=== PATIENT | male | born 1960 | race African-American/Black ===

== ENCOUNTER 2024-10-03 02:46 | Inpatient (IN) | payer MEDICARE, SELFPAY ==
[2024-10-03] VITALS (38 sets, daily range): BP systolic 130–172; BP diastolic 72–113; PULSE 100–119; RESP 16–32; TEMP 36.2–36.9; O2SAT 95–100; BMI 30.9
--- NOTE | ~2024-10-03 | CT_ITS ---
Clinical Indication: Pulmonary embolus CT Scan of the Chest with Contrast: Technique: Contiguous sections were acquired throughout the chest after intravenous administration of 100 cc of Omnipaque 350. Dose reduction technique was used on this scan by utilizing automated expos ure control and iterative reconstruction technique. The dose-length product (DLP) was 487.20 mGy-cm. Findings: There is no evidence of any significant mediastinal, hilar or axillary lymphadenopathy. There is no f illing defect in the pulmonary arterial tree to suggest pulmonary embolus. There is no evidence of ao rtic dissection or aneurysm. Small pericardial effusion present. There is no evidence of pleural or pericardial effusion. 2 mm right upper lobe pulmonary nodule present (axial image 31). 3 mm fissural nodule noted left lung (axial image 73). Images through the upper abdomen reveal no abnormalities. Impression: No evidence of pulmonary embolus, aortic dissection, or aortic aneurysm. Small pericardial effusion. Subcentimeter pulmonary nodules, as above, likely benign. For a high-risk patient, consider 12 month follow-up CT. For a low-risk patient, no further follow-up required. Reviewed, dictated and finalized at location . RIAL ATTENDANT Impression: No evidence of pulmonary embolus, aortic dissection, or aortic aneurysm. Small pericardial effusion. Subcentimeter pulmonary nodules, as above, likely benign. For a high-risk patie nt, consider 12 month follow-up CT. For a low-risk patient, no further follow-u p required.
--- NOTE | ~2024-10-03 | XR_ITS ---
Portable chest x-ray Comparison: None Clinical History: Hypoxia Findings: Lungs are clear, without focal consolidation or pleural effusion. Cardiomediastinal silho uette is unremarkable. Cervical spine fixation hardware noted. Impression: Clear lungs. Reviewed, dictated and finalized at location . RAL MEDICAL PRACTITIONER Impression: Clear lungs.
--- NOTE | 2024-10-03 02:46 | ECG_ITS ---
Test Date: 2024-10-03 07:43:19 Measurements Intervals [place] Rate: 104 P: 78 UT: 148 QRS: 75 QRSD: 87 T: 78 QT: 277 QTc: 365 Interpretive Statements SINUS TACHYCARDIA WITH OCCASIONAL SUPRAVENTRICULAR PREMATURE COMPLEXES Compared to ECG 10/03/2024 02:51:17 NO SIGNIFICANT CHANGES Electronically Signed On 10-03-2024 14:27:32 [employer] by Ginger Perea M.D.
--- NOTE | 2024-10-03 02:53 | ECG_ITS ---
Test Date: 2024-10-03 02:51:17 Measurements Intervals [place] Rate: 98 P: 77 IA: 148 QRS: 79 QRSD: 85 T: 87 QT: 332 QTc: 424 Interpretive Statements SINUS RHYTHM No previous ECG available for comparison Electronically Signed On 10-03-2024 14:25:16 TRANSFORMER REPAIRER by Ginger Perea M.D.
[2024-10-03 03:03] LABS: Basophils Percent Auto 0.5 % (0.2-1.2); Eosinophils Absolute Auto 1.2 K/mm3 (0-0.3); Eosinophils Percent Auto 15.7 % (0-4.4); Hematocrit 38.2 % (42.0-52.0); Hemoglobin 13.1 g/dL (14.0-18.0); Immature Granulocyte Absolute 0.03 K/mm3 (0.00-0.031); Immature Granulocyte Percent A 0.4 % (0-0.5); Lymphocytes Absolute Auto 2.26 K/mm3 (0.9-3.2); Lymphocytes Percent Auto 29.4 % (18.3-44.2); Mean Corpuscular HGB Conc 34.3 g/dl (32-36); Mean Corpuscular Volume 99.2 fl (80-100); Mean Platelet Volume 9.2 fl (7.4-10.4); Monocytes Absolute Auto 0.6 K/mm3 (0.1-0.6); Monocytes Percent Auto 7.4 % (2.6-8.5); Neutrophils Absolute Auto 3.6 K/mm3 (1.3-6.7); Neutrophils Percent Auto 46.6 % (45.5-73.1); Platelet Count Result 244 k/mm3 (150-375); Red Blood Count 3.85 M/mm3 (4.6-6.20); Red Cell Distribution Width 13.8 % (11.5-14.5); White Blood Count 7.7 K/mm3 (4.5-10.0)
[2024-10-03 03:14] LABS: Alveolar/Arterial O2 Gradient 30.7 mmHg; Base Excess ABG -0.3 mEq/l (+/-2.0); Device NON-INVASIVE VENT; Fractional Inspired Oxygen 30 %; HCO3 ABG 24.3 mEq/l (22.0-26.0); Modified Allen's Test Pass; Non-Invasive Expiratory Pressure 7 CMH2O; Non-Invasive Inspiratory Pressure 16 CMH2O; Non-Invasive Vent Rate 14 /MIN; Oxygen Content ABG 19.1 %vol (16.0-22.0); Oxygen Saturation ABG 98.7 % (95.0-100.0); Oxyhemoglobin 98.3 % THb (90.0-100.0); PCO2 ABG 39.7 mmHg (35.0-45.0); PO2 ABG 136.6 mmHg (80.0-100.0); PO2 FiO2 Ratio Arterial Blood 4.55 %; Site Drawn RIGHT RADIAL; Total Hemoglobin 13.7 g/dL (12.0-18.0); pH ABG 7.405 (7.350-7.450)
[2024-10-03 03:23] LABS: Alanine Aminotransferase 25 U/L (6-50); Albumin Level 3.6 g/dL (3.5-5.1); Alkaline Phosphatase 127 U/L (38-126); Anion Gap 7 mmol/L (4-12); Aspartate Amino Transferase 27 U/L (17-59); Bilirubin,Total 0.4 mg/dL (0.2-1.3); Blood Urea Nitrogen 12 mg/dL (9-20); Calcium 8.5 mg/dL (8.4-10.2); Carbon Dioxide 28 mmol/L (22-30); Chloride 102 mmol/L (98-107); Estimated CRCL calculation 65 ml/min; Estimated Glomerular Filt Rate > 60; Glucose 115 mg/dL (65-110); Potassium 3.5 mmol/L (3.4-5.0); Sodium 137 mmol/L (137-145)
[2024-10-03] MEDS: NITROGLYCERIN/D5W 200 MCG/ML 50 MG/250 ML BTL IV CONT (03:30)
[2024-10-03 03:39] LABS: Influenza A QL RT-PCR Negative (Negative); Influenza B QL RT-PCR Negative (Negative); RSV RNA, RT-PCR Negative (Negative); SARS-CoV-2 RNA PCR Negative (Negative)
[2024-10-03 04:00] LABS: Lactic Acid Reflex 1.6 mmol/L (0.7-2.0)
[2024-10-03 04:07] LABS: Prothrombin Time 13.9 Seconds (11.1-14.7)
[2024-10-03 04:13] LABS: NT Pro B Type Natriuretic Pept 61 pg/mL (19.9-100); Troponin I 0.022 ng/mL (0.000-0.034)
[2024-10-03] MEDS: IPRATROPIUM 0.5 MG/ALBUTEROL SULFATE 2.5 MG AMPUL.NEB 3 ML 12 ML INHALATION (05:43)
[2024-10-03 07:44] LABS: NT Pro B Type Natriuretic Pept 60 pg/mL (19.9-100); Troponin I 0.017 ng/mL (0.000-0.034)
--- NOTE | 2024-10-03 08:04 | ED.GENADULT ---
HPI - General Adult General Chief complaint: Shortness of Breath/Dyspnea Stated complaint: SOB, CPAP'd BY EMS History of Present Illness HPI narrative: This is a 64-year-old male with history of asthma presenting with shortness of breath. Patient has 1-2 word dyspnea cannot provide any meaningful history. He called a friend who then called EMS to have some and check on him. When they arrived they found him to be in severe respiratory distress. The noted wet lung sounds immediately placed him on CPAP. He was then brought to the hospital for evaluation. Related Data Allergies Allergy/AdvReac Type Severity Reaction Status Date / Time No Known Allergies Allergy Verified 10/03/24 02:52 [facility], [facility] Past Medical History Medical History Asthma Exam Narrative: APPEARANCE: Shady respiratory distress, tripoding, 1-2 word dyspnea Head: atraumatic. EYES: EOMI, NOSE: Atraumatic NECK: Trachea midline RESPIRATORY: Tachypneic, coarse lung sounds in all [place] hypoxic on room air CARDIOVASCULAR: Tachycardic no peripheral edema ABDOMINAL: Non-distended soft nontender MUSCULOSKELETAl: No obvious deformities NEURO: Alert. Moving 4/4 extremities SKIN:: Warm, dry. Normal color PSYCHIATRIC: Normal affect Course Vital Signs Vital signs: Vital Signs Pulse Rate 100 10/03/24 02:44 Respiratory Rate 32 H 10/03/24 02:44 Blood Pressure 159/103 H 10/03/24 02:44 Pulse Oximetry 100 10/03/24 02:44 Oxygen Delivery BiPAP 10/03/24 02:44 Pulse Rate 107 H 10/03/24 07:40 Respiratory Rate 20 10/03/24 07:40 Blood Pressure 149/100 H 10/03/24 07:15 Pulse Oximetry 98 10/03/24 07:40 Oxygen Delivery BiPAP 10/03/24 07:40 Medical Decision Making [facility] Narrative Medical decision making narrative: -Course: 64-year-old male presenting in acute respiratory distress. Initially I thought the patient was in acute pulmonary edema however he did not respond to nitroglycerin or BiPAP. He was then treated with DuoNebs, steroids and magnesium with significant improvement. Appears the patient has had URI symptoms for the last several days which likely exacerbated his asthma/COPD. Patient's workup was unremarkable with normal laboratory values, negative CT PE, negative viral swabs. Patient will be admitted to the hospital for further management of his COPD exacerbation. -DDX includes but is not limited to: Flash pulmonary edema, COPD, pneumonia, asthma -Co-morbidities complicating care: Asthma -Independent interpretation of studies: Labs and imaging reviewed -Discussion of Management/Consultants:Timi -Shared decision making / Disposition:admitted. Vital Signs Vital Signs: Vital Signs Pulse Rate 100 10/03/24 02:44 Respiratory Rate 32 H 10/03/24 02:44 Blood Pressure 159/103 H 10/03/24 02:44 Pulse Oximetry 100 10/03/24 02:44 Oxygen Delivery BiPAP 10/03/24 02:44 Pulse Rate 107 H 10/03/24 07:40 Respiratory Rate 20 10/03/24 07:40 Blood Pressure 149/100 H 10/03/24 07:15 Pulse Oximetry 98 10/03/24 07:40 Oxygen Delivery BiPAP 10/03/24 07:40 Lab Data 10/03/24 02:58 10/03/24 02:58 Labs: Lab Results 10/03/24 10/03/24 10/03/24 Range/Units 02:58 03:12 03:40 WBC 7.7 (4.5-10.0) K/mm3 RBC 3.85 L (4.6-6.20) M/mm3 Hgb 13.1 L (14.0-18.0) g/dL Hct 38.2 L (42.0-52.0) % MCV 99.2 (80-100) fl MCH 34.0 (26-34) pg MCHC 34.3 (32-36) g/dl RDW 13.8 (11.5-14.5) % Plt Count 244 (150-375) k/mm3 MPV 9.2 (7.4-10.4) fl Immature Gran % (Auto) 0.4 (0-0.5) % Neut % (Auto) 46.6 (45.5-73.1) % Lymph % (Auto) 29.4 (18.3-44.2) % Cook % (Auto) 7.4 (2.6-8.5) % Eos % (Auto) 15.7 H (0-4.4) % Baso % (Auto) 0.5 (0.2-1.2) % Lymph # (Auto) 2.26 (0.9-3.2) K/mm3 Cook # (Auto) 0.6 (0.1-0.6) K/mm3 Eos # (Auto) 1.2 H (0-0.3) K/mm3 Baso # (Auto) 0.0 (0.0-0.1) K/mm3 Abs Immat Gran (auto) 0.03 (0.00-0.031) K/mm3 Absolute Neuts (auto) 3.6 (1.3-6.7) K/mm3 Absolute Nucleated RBC 0.000 (0.0-0.012) K/mm3 Nucleated RBC % 0.0 (0.0-0.2) % PT 13.9 (11.1-14.7) Seconds INR 1.0 APTT 29.0 (22.3-36.8) Seconds Expiratory Pressure 7 CMH2O Inspiratory Pressure 16 CMH2O Sodium 137 (137-145) mmol/L Potassium 3.5 (3.4-5.0) mmol/L Chloride 102 (98-107) mmol/L Carbon Dioxide 28 (22-30) mmol/L Anion Gap 7 (4-12) mmol/L BUN 12 (9-20) mg/dL Creatinine 1.09 (0.7-1.3) mg/dL Estim Creat Clear Calc 65 ml/min Estimated GFR > 60 (59 - ) Glucose 115 H (65-110) mg/dL Lactic Acid 1.6 (0.7-2.0) mmol/L Calcium 8.5 (8.4-10.2) mg/dL Total Bilirubin 0.4 (0.2-1.3) mg/dL AST 27 (17-59) U/L ALT 25 (6-50) U/L Alkaline Phosphatase 127 H (38-126) U/L Troponin I 0.022 (0.000-0.034) ng/mL NT-Pro-B Natriuret Pep 61 (19.9-100) pg/mL Total Protein 6.0 L (6.3-8.2) g/dL Albumin 3.6 (3.5-5.1) g/dL Urine Opiates Screen Urine Methadone Screen Ur Barbiturates Screen Ur Phencyclidine Scrn Ur Amphetamine Screen U Benzodiazepines Scrn Urine Cocaine Screen U Cannabinoids Screen Influenza A (RT-PCR) Negative (Negative) Influenza B (RT-PCR) Negative (Negative) RSV (RT-PCR) Negative (Negative) SARS-CoV-2 RNA (RT-PCR) Negative (Negative) 10/03/24 10/03/24 Range/Units 07:18 07:38 WBC (4.5-10.0) K/mm3 RBC (4.6-6.20) M/mm3 Hgb (14.0-18.0) g/dL Hct (42.0-52.0) % MCV (80-100) fl MCH (26-34) pg MCHC (32-36) g/dl RDW (11.5-14.5) % Plt Count (150-375) k/mm3 MPV (7.4-10.4) fl Immature Gran % (Auto) (0-0.5) % Neut % (Auto) (45.5-73.1) % Lymph % (Auto) (18.3-44.2) % Cook % (Auto) (2.6-8.5) % Eos % (Auto) (0-4.4) % Baso % (Auto) (0.2-1.2) % Lymph # (Auto) (0.9-3.2) K/mm3 Cook # (Auto) (0.1-0.6) K/mm3 Eos # (Auto) (0-0.3) K/mm3 Baso # (Auto) (0.0-0.1) K/mm3 Abs Immat Gran (auto) (0.00-0.031) K/mm3 Absolute Neuts (auto) (1.3-6.7) K/mm3 Absolute Nucleated RBC (0.0-0.012) K/mm3 Nucleated RBC % (0.0-0.2) % PT (11.1-14.7) Seconds INR APTT (22.3-36.8) Seconds Expiratory Pressure CMH2O Inspiratory Pressure CMH2O Sodium (137-145) mmol/L Potassium (3.4-5.0) mmol/L Chloride (98-107) mmol/L Carbon Dioxide (22-30) mmol/L Anion Gap (4-12) mmol/L BUN (9-20) mg/dL Creatinine (0.7-1.3) mg/dL Estim Creat Clear Calc ml/min Estimated GFR (59 - ) Glucose (65-110) mg/dL Lactic Acid (0.7-2.0) mmol/L Calcium (8.4-10.2) mg/dL Total Bilirubin (0.2-1.3) mg/dL AST (17-59) U/L ALT (6-50) U/L Alkaline Phosphatase (38-126) U/L Troponin I 0.017 D (0.000-0.034) ng/mL NT-Pro-B Natriuret Pep 60 (19.9-100) pg/mL Total Protein (6.3-8.2) g/dL Albumin (3.5-5.1) g/dL Urine Opiates Screen Pending Urine Methadone Screen Pending Ur Barbiturates Screen Pending Ur Phencyclidine Scrn Pending Ur Amphetamine Screen Pending U Benzodiazepines Scrn Pending Urine Cocaine Screen Pending U Cannabinoids Screen Pending Influenza A (RT-PCR) (Negative) Influenza B (RT-PCR) (Negative) RSV (RT-PCR) (Negative) SARS-CoV-2 RNA (RT-PCR) (Negative) ABG Data ABG results: 10/03/24 03:12 Puncture Site Right radial ABG pH 7.405 ABG pCO2 39.7 ABG pO2 136.6 H ABG PO2/FiO2 Ratio 4.55 ABG HCO3 24.3 ABG O2 Saturation 98.7 ABG O2 Content 19.1 ABG Base Excess -0.3 A-a Gradient 30.7 Oxyhemoglobin 98.3 Total Hemoglobin 13.7 O2 Delivery Device Non-invasive vent O2 Liters/Min Not Reportable Vent Rate 14 FiO2 30 Critical Care Time Critical Care Time Critical Care Time: Yes Total Critical Care Time: 35 Discharge Plan Discharge Clinical Impression: COPD with acute exacerbation Patient Disposition: Still a Patient Condition: Stable Patient Language: Italian
[2024-10-03] MEDS: dexAMETHasone SOD PHOS INJ 10 MG/ML 1 ML VIAL IV PUSH (08:57)
[2024-10-03] MEDS: MAGNESIUM SULF 2 GM/WATER 50ML 2 GM/50 ML BAG IVPB (08:58)
--- NOTE | 2024-10-03 09:05 | PC.NURSE ---
attempted to give report nurse not able to take pt at this time
[2024-10-03 09:11] LABS: Barbiturate Screen Urine Negative (Negative)
[2024-10-03 09:15] LABS: Benzodiazepines Screen Urine Negative (Negative)
--- NOTE | 2024-10-03 09:19 | PC.NURSE ---
This patient, Yovanny Steve, was admitted to IMU Room 205-01. Patient/family oriented to hospital policies and general routines including ID bracelet, bed and alarms, visiting hours, pain management, procedures, bathroom and other care routines, personal items, smoking policy, room service/diet, and visiting hours. Information on how to activate the Rapid Response Team has been discussed. Patient/Family are encouraged to report perceived risks to care and to ask questions if they do not understand what they are told or what they should do.
[2024-10-03 09:23] LABS: Amphetamine Screen Urine Negative (Negative); Cannabinoid Screen Urine Negative (Negative); Cocaine Screen Urine Negative (Negative); Methadone Screen Urine Negative (Negative); Opiate Screen Urine Negative (Negative); Phencyclidine Screen Urine Negative (Negative)
--- NOTE | 2024-10-03 10:35 | P.HP_ITS ---
H&P: HPI History of Present Illness Date/Time: 10/03/24 10:35 Chief Complaint: Productive cough and shortness breath Narrative: 64 years old man with history of asthma, never smoking, presenting with shortness of breath. Present ED with a chief complaint of productive cough and shortness shortness breath. Patient has been having intermittent cough and shortness breast more than a week. Patient visited Urgent Care, patient was prescribed antibiotics bronchodilators and steroid. But patient still has cough with scant phlegm. Patient has been having worsening cough and increased phlegm in past few more days. Dyspnea is getting worse today, therefore his friend called EMS. Upon arrival, EMS found patient was in respiratory distress, and patient was placed on CPAP and brought to ED for evaluation. Patient denies chest pain, headache, focal weakness, abdomen pain nausea vomiting diarrhea dysuria. Upon arrival in the ED, patient was afebrile, tachypnea 32, tachycardia 100, blood pressure stable, patient was found have hypoxemia, respiratory distress. Patient was placed on BiPAP in the ED. CBC showed mild anemia hemoglobin 13.1, ABG showed hypoxemic respiratory failure without CO2 retention. Flu and COVID negative, CTA chest shows no PE, patient received bronchodilators and steroid, patient still has severe dyspnea. We admit patient for further evaluation and management Review of Systems Review of Systems: ROS negative except above PMFSH Past Medical History Medical History Asthma Meds Home Medications and Allergies Allergies Allergy/AdvReac Type Severity Reaction Status Date / Time No Known Allergies Allergy Verified 10/03/24 02:52 Vital Signs Vital Signs - 24 hr 10/03/24 02:44 10/03/24 02:44 10/03/24 02:48 Temperature Pulse Rate 100 Respiratory Rate 32 H 26 H Blood Pressure 159/103 H Pulse Oximetry 100 100 100 Oxygen Delivery BiPAP BiPAP BiPAP Fraction of Inspired Oxygen 10/03/24 02:51 10/03/24 03:30 10/03/24 04:00 Temperature Pulse Rate 100 103 H 104 H Respiratory Rate 23 H Blood Pressure 156/100 H 163/100 H Pulse Oximetry 97 Oxygen Delivery Fraction of Inspired Oxygen 10/03/24 04:48 10/03/24 05:27 10/03/24 05:46 Temperature Pulse Rate 109 H 119 H 115 H Respiratory Rate 22 H 25 H 17 Blood Pressure 158/113 H Pulse Oximetry 97 96 Oxygen Delivery BiPAP Fraction of Inspired Oxygen 10/03/24 05:49 10/03/24 06:00 10/03/24 06:00 Temperature Pulse Rate 115 H 103 H 109 H Respiratory Rate 23 H 21 H 19 Blood Pressure 153/99 H 130/93 H Pulse Oximetry 96 100 100 Oxygen Delivery BiPAP Fraction of Inspired Oxygen 10/03/24 07:00 10/03/24 07:10 10/03/24 07:15 Temperature 97.9 F Pulse Rate 106 H 107 H 104 H Respiratory Rate 20 20 22 H Blood Pressure 145/88 H 149/100 H Pulse Oximetry 100 100 Oxygen Delivery Fraction of Inspired Oxygen 10/03/24 07:40 10/03/24 08:00 10/03/24 08:55 Temperature 97.7 F Pulse Rate 107 H 108 H 102 H Respiratory Rate 20 20 Blood Pressure 152/83 H 154/88 H Pulse Oximetry 98 100 Oxygen Delivery BiPAP Fraction of Inspired Oxygen 10/03/24 09:03 10/03/24 09:17 10/03/24 09:20 Temperature 97.9 F 97.9 F Pulse Rate 106 H 102 H 111 H Respiratory Rate 20 20 24 H Blood Pressure 152/88 H 150/72 H 172/100 H Pulse Oximetry 100 100 98 Oxygen Delivery Fraction of Inspired Oxygen 10/03/24 09:40 10/03/24 09:40 Temperature Pulse Rate 114 H Respiratory Rate 25 H Blood Pressure Pulse Oximetry 96 96 Oxygen Delivery BiPAP BiPAP Fraction of Inspired Oxygen 21 Exam Narrative: GENERAL: In respiratory distress. Well-nourished. - EYES: EOMI. Anicteric. - HENT: Moist mucous membranes. - LUNGS: Wheezing bilateral, distant br eath sound bilateral, tachypnea - CARDIOVASCULAR: Regular rate and rhyth m. No murmur. No JVD. Tachycardia - ABDOMEN: Soft, non-tender and non-dist ended. No palpable masses. - EXTREMITIES: No edema. Peripheral puls es 2+. Non-tender. - NEUROLOGIC: No focal neurological defi cits. CN II-XII grossly intact. - PSYCHIATRIC: Awake, Alert and oriented x 3. Appropriate mood and affect. - SKIN: No rashes or lesions. Warm. - LYMPH: No cervical lymphadenopathy. H&P: Results Labs Labs: Short CBC 10/03/24 Range/Units 02:58 WBC 7.7 (4.5-10.0) K/mm3 Hgb 13.1 L (14.0-18.0) g/dL Hct 38.2 L (42.0-52.0) % Plt Count 244 (150-375) k/mm3 BMP 10/03/24 02:58 Sodium 137 Potassium 3.5 Chloride 102 Carbon Dioxide 28 BUN 12 Creatinine 1.09 Glucose 115 H Calcium 8.5 Cardiac Enzymes 10/03/24 10/03/24 Range/Units 02:58 07:18 Troponin I 0.022 0.017 D (0.000-0.034) ng/mL Liver Function 10/03/24 Range/Units 02:58 Total Bilirubin 0.4 (0.2-1.3) mg/dL AST 27 (17-59) U/L ALT 25 (6-50) U/L Alkaline Phosphatase 127 H (38-126) U/L Albumin 3.6 (3.5-5.1) g/dL Assessment and Plan Assessment and plan (1) COPD with acute exacerbation: Code(s): J44.1 - Chronic obstructive pulmonary disease with (acute) exacerbation Status: Acute (2) Acute respiratory failure with hypoxemia: Code(s): J96.01 - Acute respiratory failure with hypoxia Status: Acute (3) Acute bacterial bronchitis: Code(s): J20.8 - Acute bronchitis due to other specified organisms; B96.89 - Other specified bacterial agents as the cause of diseases classified elsewhere Status: Acute Plan COPD exacerbation, acute bacterial bronchitis Patient history of COPD, aspartate cough and worsening shortness breast in past 1 day CTA shows no PE, Received bronchodilator in the ED, start DuoNeb scheduled q.6 hours, albuterol nebulizer q.4 hours p.r.n. Start Levaquin 750 mg IV daily Continue methylprednisolone 60 mg q.6 hours IV Acute respiratory failure with hypoxemia Possible due to COPD exacerbation Patient is on BiPAP, Follow ABG. Continue O2 therapy to keep pulse ox above 92 Elevated blood pressure Possible undiagnosed hypertension Blood pressure 172/100 in the ED Start losartan 50 mg daily p.o. amlodipine 5 mg daily p.o. Follow-up echocardiogram, and BNP Hospitalist MIPS Advance Care Plan I have confirmed that the patient's Advanced Care Plan is present, code status is documented, or surrogate decision maker is listed in patient medical record.: Yes Medication Reconciliation I have utilized all available resources to obtain, update and review the patients current medications (includes all prescriptions, OTC, herbals, cannabis, and nutritional supplements).: Yes
[2024-10-03] MEDS: methylPREDNISolone SOD SUCC 125 MG VIAL 60 MG IV PUSH ×3 (12:35→23:42)
[2024-10-03] MEDS: amLODIPine BESYLATE 5 MG TABLET PO (12:35)
[2024-10-03] MEDS: LOSARTAN POTASSIUM 50 MG TABLET PO (12:35)
[2024-10-03] MEDS: levoFLOXacin 750 MG/D5W 150 ML 750 MG/150 ML BAG 100 MG IVPB (12:35)
[2024-10-03] MEDS: IPRATROPIUM 0.5 MG/ALBUTEROL SULFATE 2.5 MG AMPUL.NEB 3 ML INHALATION ×2 (13:10→20:40)
[2024-10-04] VITALS (15 sets, daily range): BP systolic 105–137; BP diastolic 68–81; PULSE 99–116; RESP 16–24; TEMP 36.5–37.1; O2SAT 94–99
[2024-10-04] MEDS: methylPREDNISolone SOD SUCC 125 MG VIAL 60 MG IV PUSH (05:39)
--- NOTE | 2024-10-04 05:41 | PCRCNOTE ---
This RT woke patient for his 0200 updraft treatment in which he apologized and stated he would rather sleep. Treatment to resume @ 0800.
[2024-10-04] MEDS: IPRATROPIUM 0.5 MG/ALBUTEROL SULFATE 2.5 MG AMPUL.NEB 3 ML INHALATION ×3 (08:02→21:35)
[2024-10-04] MEDS: LOSARTAN POTASSIUM 50 MG TABLET PO (08:45)
[2024-10-04] MEDS: amLODIPine BESYLATE 5 MG TABLET PO (08:45)
--- NOTE | 2024-10-04 09:25 | P.PNIM_ITS ---
Progress Note: A&P Assessment and Plan (1) COPD with acute exacerbation: Code(s): J44.1 - Chronic obstructive pulmonary disease with (acute) exacerbation Status: Acute (2) Acute respiratory failure with hypoxemia: Code(s): J96.01 - Acute respiratory failure with hypoxia Status: Acute (3) Acute bacterial bronchitis: Code(s): J20.8 - Acute bronchitis due to other specified organisms; B96.89 - Other specified bacterial agents as the cause of diseases classified elsewhere Status: Acute Plan COPD exacerbation, acute bacterial bronchitis Patient history of COPD, aspartate cough and worsening shortness breast in past 1 day CTA shows no PE, Received bronchodilator in the ED, start DuoNeb scheduled q.6 hours, albuterol nebulizer q.4 hours p.r.n. Start Levaquin 750 mg IV daily Decrease methylprednisolone 60 mg q.6 hours IV to 40 mg q.8 hours IV Acute respiratory failure with hypoxemia Possible due to COPD exacerbation Patient is off BiPAP, today Follow venous blood gas showed patient 7.46, pCO2 29, PO2 68.5, bicarbonate 20.2 Continue O2 therapy to keep pulse ox above 92 1 nasal cannular Elevated blood pressure Possible undiagnosed hypertension Blood pressure 172/100 in the ED BNP: 61 Start amlodipine 5 mg daily p.o., losartan 50 mg daily p.o. Blood pressure is controlled well Move patient to medical floor from step-down ICU Subjective Date/time seen: 10/04/24 09:25 Interval history: I saw examined patient today. Patient is off BiPAP. Patient feels dyspnea improving, but still has significant dyspnea with minimal exertion. Patient denies headache, chest pain, nausea vomiting diarrhea dysuria. Patient has tachycardia tachypnea, pulse ox 91 on room air, Exam Narrative: GENERAL: In respiratory distress. Well-nourished., obesity - EYES: EOMI. Anicteric. - HENT: Moist mucous membranes. - LUNGS: Scattered Wheezing bilateral, distant breath sound bilateral. - CARDIOVASCULAR: Regular rate and rhyth m. No murmur. No JVD. Tachycardia - ABDOMEN: Soft, non-tender and non-dist ended. No palpable masses. - EXTREMITIES: No edema. Peripheral puls es 2+. Non-tender. - NEUROLOGIC: No focal neurological defi cits. CN II-XII grossly intact. - PSYCHIATRIC: Awake, Alert and oriented x 3. Appropriate mood and affect. - SKIN: No rashes or lesions. Warm. - LYMPH: No cervical lymphadenopathy. Objective Data Vital Signs Vital Signs: Vital Signs - 24 hr 10/03/24 09:40 10/03/24 09:40 10/03/24 10:00 Temperature Pulse Rate 114 H Respiratory Rate 25 H Blood Pressure Pulse Oximetry 96 96 95 Oxygen Delivery BiPAP BiPAP BiPAP Oxygen Flow Rate Fraction of Inspired Oxygen 21 25 10/03/24 10:00 10/03/24 11:00 10/03/24 12:00 Temperature 97.2 F L Pulse Rate 106 H 107 H 103 H Respiratory Rate 27 H 30 H Blood Pressure 169/94 H Pulse Oximetry 97 99 Oxygen Delivery BiPAP Oxygen Flow Rate Fraction of Inspired Oxygen 10/03/24 12:00 10/03/24 12:30 10/03/24 12:45 Temperature Pulse Rate 113 H 103 H Respiratory Rate Blood Pressure Pulse Oximetry 95 97 Oxygen Delivery Nasal Cannula Oxygen Flow Rate 2 Fraction of Inspired Oxygen 10/03/24 13:10 10/03/24 13:20 10/03/24 14:00 Temperature Pulse Rate 104 H 105 H 101 H Respiratory Rate 24 H 24 H Blood Pressure Pulse Oximetry Oxygen Delivery Oxygen Flow Rate Fraction of Inspired Oxygen 10/03/24 15:20 10/03/24 16:00 10/03/24 16:00 Temperature 98.5 F Pulse Rate 110 H 118 H Respiratory Rate 16 Blood Pressure 151/79 H Pulse Oximetry 100 95 Oxygen Delivery Nasal Cannula Oxygen Flow Rate 2 Fraction of Inspired Oxygen 10/03/24 18:00 10/03/24 19:40 10/03/24 20:00 Temperature 98.1 F Pulse Rate 112 H 100 103 H Respiratory Rate 20 20 Blood Pressure 141/79 H Pulse Oximetry 99 97 Oxygen Delivery Room Air Oxygen Flow Rate Fraction of Inspired Oxygen 10/03/24 20:00 10/03/24 20:40 10/03/24 20:40 Temperature Pulse Rate 103 H 111 H 111 H Respiratory Rate 20 Blood Pressure Pulse Oximetry 97 Oxygen Delivery Nasal Cannula Oxygen Flow Rate 2 Fraction of Inspired Oxygen 10/03/24 20:48 10/03/24 22:00 10/03/24 23:46 Temperature 98.0 F Pulse Rate 107 H 111 H 108 H Respiratory Rate 20 16 Blood Pressure 133/79 Pulse Oximetry 97 Oxygen Delivery Oxygen Flow Rate Fraction of Inspired Oxygen 10/03/24 23:54 10/03/24 23:54 10/04/24 02:00 Temperature Pulse Rate 113 H 113 H 104 H Respiratory Rate 16 Blood Pressure Pulse Oximetry 97 Oxygen Delivery Room Air Oxygen Flow Rate Fraction of Inspired Oxygen 10/04/24 04:00 10/04/24 04:00 10/04/24 04:07 Temperature 98.0 F Pulse Rate 106 H 106 H 106 H Respiratory Rate 20 20 Blood Pressure 105/81 Pulse Oximetry 94 94 Oxygen Delivery Nasal Cannula Oxygen Flow Rate 2 Fraction of Inspired Oxygen 10/04/24 05:44 10/04/24 08:00 10/04/24 08:03 Temperature 97.7 F Pulse Rate 101 H 111 H 107 H Respiratory Rate 24 H 20 Blood Pressure 133/70 Pulse Oximetry 98 96 Oxygen Delivery Room Air Oxygen Flow Rate Fraction of Inspired Oxygen 10/04/24 08:03 10/04/24 08:12 Temperature Pulse Rate 107 H 102 H Respiratory Rate 20 20 Blood Pressure Pulse Oximetry Oxygen Delivery Oxygen Flow Rate Fraction of Inspired Oxygen Intake/Output Intake/Output: Intake & Output 10/01/24 10/02/24 10/03/24 10/04/24 23:59 23:59 23:59 23:59 Intake Total 748.1 560 Output Total 1125 200 Balance -376.9 360 Meds/Results Medications: Active Medications Generic Name Dose Route Start Last Admin Trade Name Freq PRN Reason Stop Dose Admin Albuterol/Ipratropium 3 ml 10/03/24 14:00 10/04/24 08:02 Ipratropium 0.5 Mg/Albuterol Sulfate 2.5 Mg Ampul.Neb 3 Ml INHALATION 3 ml Q6HRT MAYNOR Administration Amlodipine Besylate 5 mg 10/03/24 12:05 10/04/24 08:45 Amlodipine Besylate 5 Mg Tablet PO 5 mg DAILY MAYNOR Administration Levofloxacin/Dextrose 750 mg in 150 mls @ 100 mls/hr 10/03/24 12:00 10/03/24 14:10 Levaquin 750 Mg/D5w 150 Ml IVPB Infused Q24H MAYNOR Infusion Losartan Potassium 50 mg 10/03/24 12:05 10/04/24 08:45 Losartan Potassium 50 Mg Tablet PO 50 mg DAILY MAYNOR Administration Methylprednisolone Sodium Succinate 60 mg 10/03/24 12:00 10/04/24 05:39 Methylprednisolone Sod Succ 125 Mg Vial IV PUSH 60 mg Q6HR MAYNOR Administration Radiology Results: ITS Impressions Chest X-Ray 10/03/24 06:28 Impression: Clear lungs. Chest CTA 10/03/24 07:42 Impression: No evidence of pulmonary embolus, aortic dissection, or aortic aneurysm. Small pericardial effusion. Subcentimeter pulmonary nodules, as above, likely benign. For a high-risk patient, consider 12 month follow-up CT. For a low-risk patient, no further follow-up required.
[2024-10-04 09:56] LABS: Basophils Percent Auto 0.1 % (0.2-1.2); Hematocrit 38.2 % (42.0-52.0); Hemoglobin 13.1 g/dL (14.0-18.0); Immature Granulocyte Absolute 0.13 K/mm3 (0.00-0.031); Immature Granulocyte Percent A 0.8 % (0-0.5); Lymphocytes Absolute Auto 0.87 K/mm3 (0.9-3.2); Lymphocytes Percent Auto 5.7 % (18.3-44.2); Mean Corpuscular HGB Conc 34.3 g/dl (32-36); Mean Corpuscular Volume 99.2 fl (80-100); Mean Platelet Volume 9.4 fl (7.4-10.4); Monocytes Absolute Auto 0.4 K/mm3 (0.1-0.6); Monocytes Percent Auto 2.7 % (2.6-8.5); Neutrophils Absolute Auto 13.9 K/mm3 (1.3-6.7); Neutrophils Percent Auto 90.7 % (45.5-73.1); Platelet Count Result 274 k/mm3 (150-375); Red Blood Count 3.85 M/mm3 (4.6-6.20); White Blood Count 15.3 K/mm3 (4.5-10.0)
[2024-10-04 10:10] LABS: Anion Gap 9 mmol/L (4-12); Blood Urea Nitrogen 19 mg/dL (9-20); Carbon Dioxide 24 mmol/L (22-30); Chloride 101 mmol/L (98-107); Estimated CRCL calculation 65 ml/min; Estimated Glomerular Filt Rate > 60; Glucose 199 mg/dL (65-110); Potassium 4.3 mmol/L (3.4-5.0); Sodium 134 mmol/L (137-145)
[2024-10-04 12:06] LABS: Fractional Inspired Oxygen 21 %; HCO3 VBG 20.2 mEq/l (24.0-30.0); PO2 VBG 68.5 mmHg (35.0-45.0)
[2024-10-04 12:11] LABS: Device ROOM AIR; PCO2 VBG 29.1 mmHg (42.0-48.0)
[2024-10-04] MEDS: methylPREDNISolone SOD SUCC 40 MG VIAL IV PUSH (14:18)
[2024-10-04] MEDS: levoFLOXacin 750 MG/D5W 150 ML 750 MG/150 ML BAG 100 MG IVPB (14:22)
--- NOTE | 2024-10-04 21:56 | P.CONPL_ITS ---
History of Present Illness History of Present Illness Consult date: 10/05/24 Requesting physician: Mary Capellan MD Chief complaint: COPD Narrative: patient is being discharged Oct 05, I did not see him in consultation. d/w Dr Capellan. 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 [facility] Past Medical History Medical History Asthma Social History Social History Smoking status: Former smoker Alcohol intake: never Substance use: never Do You Feel Safe in your Home?: Yes Lack of Transportation: No Lack of Food: Never True Current Housing: I Have Housing Concerned About Future Housing: No Difficulty Paying Gas/Electric Bills: No Difficulty Paying for Meds: No Currently Unemployed: No Education: Don't Know Difficulty w/ Childcare or Family Care: No Spiritual care concerns: No Meds Home Medications and Allergies Home Medications ?Medication ?Instructions ?Recorded ?Confirmed ?Type albuterol sulfate 90 mcg/actuation 2 puff inhalation Q4H PRN 10/03/24 10/03/24 History aerosol inhaler shortness of breath or wheezing allopurinol 300 mg tablet 300 mg PO DAILY 10/03/24 10/03/24 History cholecalciferol (vitamin D3) 25 25 mcg PO DAILY 10/03/24 10/03/24 History mcg (1,000 unit) capsule (Vitamin D3) esomeprazole magnesium 20 mg 20 mg PO DAILY 10/03/24 10/03/24 History capsule,delayed release (Acid Dethistler Operator (esomeprazole)) fexofenadine 180 mg tablet 180 mg PO DAILY 10/03/24 10/03/24 History (Ameena Allergy) fluticasone 500 mcg-salmeterol 50 1 inh inhalation Q12H 10/03/24 10/03/24 History mcg/dose blistr powdr for inhalation (Wixela Inhub) fluticasone propionate 50 1 spray intranasal DAILY PRN 10/03/24 10/03/24 History mcg/actuation nasal allergy symptoms spray,suspension (24 Hour Allergy Relief) hydroxyzine HCl 10 mg tablet 10 mg PO TID PRN anxiety 10/03/24 10/03/24 History lisinopril 20 1 tablet PO DAILY 10/03/24 10/03/24 History mg-hydrochlorothiazide 25 mg tablet loratadine 10 mg tablet 10 mg PO DAILY 10/03/24 10/03/24 History multivitamin with minerals-folic 1 tablet PO DAILY 10/03/24 10/03/24 History acid 80 mcg chewable tablet (Centrum Adult 50 Plus) potassium 99 mg tablet 99 mg PO DAILY 10/03/24 10/03/24 History sertraline 25 mg tablet 25 mg PO DAILY 10/03/24 10/03/24 History tiotropium bromide 2.5 2 inh inhalation DAILY 10/03/24 10/03/24 History mcg/actuation mist for inhalation (Spiriva Respimat) trazodone 150 mg tablet 150 mg PO HS 10/03/24 10/03/24 History umeclidinium 62.5 mcg/actuation 1 inh inhalation DAILY 10/03/24 10/03/24 History blister powder for inhalation (Incruse Ellipta) vitamin B12 2,500 mcg-folic acid 1 tablet PO DAILY 10/03/24 10/03/24 History 400 mcg disintegrating tablet vitamin E 268 mg (400 unit) capsule 268 mg PO DAILY 10/03/24 10/03/24 History vitamin E 670 mg (1,000 unit) 670 mg PO DAILY 10/03/24 10/03/24 History capsule Allergies Allergy/AdvReac Type Severity Reaction Status Date / Time No Known Allergies Allergy Verified 10/03/24 02:52 Vital Signs Vital Signs - 24 hr 10/03/24 22:00 10/03/24 23:46 10/03/24 23:54 Temperature 36.7 C Pulse Rate 111 H 108 H 113 H Respiratory Rate 16 16 Blood Pressure 133/79 Pulse Oximetry 97 97 Oxygen Delivery Room Air Oxygen Flow Rate Fraction of Inspired Oxygen 10/03/24 23:54 10/04/24 02:00 10/04/24 04:00 Temperature Pulse Rate 113 H 104 H 106 H Respiratory Rate 20 Blood Pressure Pulse Oximetry 94 Oxygen Delivery Nasal Cannula Oxygen Flow Rate 2 Fraction of Inspired Oxygen 10/04/24 04:00 10/04/24 04:07 10/04/24 05:44 Temperature 36.7 C Pulse Rate 106 H 106 H 101 H Respiratory Rate 20 Blood Pressure 105/81 Pulse Oximetry 94 Oxygen Delivery Oxygen Flow Rate Fraction of Inspired Oxygen 10/04/24 08:00 10/04/24 08:00 10/04/24 08:03 Temperature 36.5 C Pulse Rate 111 H 108 H 107 H Respiratory Rate 24 H 20 Blood Pressure 133/70 Pulse Oximetry 98 96 Oxygen Delivery Room Air Oxygen Flow Rate Fraction of Inspired Oxygen 10/04/24 08:03 10/04/24 08:12 10/04/24 10:00 Temperature Pulse Rate 107 H 102 H 115 H Respiratory Rate 20 20 Blood Pressure Pulse Oximetry Oxygen Delivery Oxygen Flow Rate Fraction of Inspired Oxygen 10/04/24 12:00 10/04/24 13:29 10/04/24 13:32 Temperature 37.1 C Pulse Rate 112 H 110 H 110 H Respiratory Rate 20 20 20 Blood Pressure 137/68 Pulse Oximetry 99 96 Oxygen Delivery Room Air Oxygen Flow Rate Fraction of Inspired Oxygen 10/04/24 13:42 10/04/24 15:56 10/04/24 20:00 Temperature 36.8 C Pulse Rate 116 H 110 H Respiratory Rate 20 16 Blood Pressure 135/69 Pulse Oximetry 98 Oxygen Delivery Room Air Oxygen Flow Rate Fraction of Inspired Oxygen 10/04/24 21:35 10/04/24 21:45 Temperature Pulse Rate 102 H 99 Respiratory Rate 20 20 Blood Pressure Pulse Oximetry Oxygen Delivery Oxygen Flow Rate Fraction of Inspired Oxygen Results Laboratory Findings 10/05/24 06:41 10/05/24 06:41 ABG, PT/INR, D-dimer: ABG ABG pH 7.405 (7.350-7.450) 10/03/24 03:12 ABG pCO2 39.7 mmHg (35.0-45.0) 10/03/24 03:12 ABG pO2 136.6 mmHg (80.0-100.0) H 10/03/24 03:12 ABG O2 Saturation 98.7 % (95.0-100.0) 10/03/24 03:12 PT/INR, D-dimer PT 13.9 Seconds (11.1-14.7) 10/03/24 02:58 INR 1.0 10/03/24 02:58 Abnormal lab findings: Abnormal Labs 10/03/24 10/03/24 10/04/24 02:58 03:12 09:39 WBC 15.3 H RBC 3.85 L 3.85 L Hgb 13.1 L 13.1 L Hct 38.2 L 38.2 L Immature Gran % (Auto) 0.8 H Neut % (Auto) 90.7 H Lymph % (Auto) 5.7 L Eos % (Auto) 15.7 H Baso % (Auto) 0.1 L Lymph # (Auto) 0.87 L Eos # (Auto) 1.2 H Abs Immat Gran (auto) 0.13 H Absolute Neuts (auto) 13.9 H ABG pO2 136.6 H VBG pH VBG pCO2 VBG pO2 VBG HCO3 Sodium 134 L Glucose 115 H 199 H Alkaline Phosphatase 127 H Total Protein 6.0 L 10/04/24 11:53 WBC RBC Hgb Hct Immature Gran % (Auto) Neut % (Auto) Lymph % (Auto) Eos % (Auto) Baso % (Auto) Lymph # (Auto) Eos # (Auto) Abs Immat Gran (auto) Absolute Neuts (auto) ABG pO2 VBG pH 7.460 H* VBG pCO2 29.1 L* VBG pO2 68.5 H VBG HCO3 20.2 L Sodium Glucose Alkaline Phosphatase Total Protein
[2024-10-05] VITALS: BP 110/75; PULSE 96; RESP 18; TEMP 36.5; O2SAT 98
[2024-10-05 06:46] VITALS: BP 125/69; PULSE 96; RESP 18; TEMP 36.6; O2SAT 97
[2024-10-05 07:21] LABS: Basophils Percent Auto 0.1 % (0.2-1.2); Eosinophils Percent Auto 0.2 % (0-4.4); Hematocrit 39.2 % (42.0-52.0); Hemoglobin 12.8 g/dL (14.0-18.0); Immature Granulocyte Absolute 0.11 K/mm3 (0.00-0.031); Immature Granulocyte Percent A 0.7 % (0-0.5); Lymphocytes Absolute Auto 1.91 K/mm3 (0.9-3.2); Lymphocytes Percent Auto 12.6 % (18.3-44.2); Mean Corpuscular HGB Conc 32.7 g/dl (32-36); Mean Corpuscular Hemoglobin 33.4 pg (26-34); Mean Corpuscular Volume 102.3 fl (80-100); Mean Platelet Volume 9.6 fl (7.4-10.4); Monocytes Absolute Auto 1.1 K/mm3 (0.1-0.6); Monocytes Percent Auto 7.4 % (2.6-8.5); Platelet Count Result 262 k/mm3 (150-375); Red Blood Count 3.83 M/mm3 (4.6-6.20); Red Cell Distribution Width 14.3 % (11.5-14.5); White Blood Count 15.2 K/mm3 (4.5-10.0)
[2024-10-05 07:33] LABS: Anion Gap 5 mmol/L (4-12); Blood Urea Nitrogen 25 mg/dL (9-20); Calcium 9.3 mg/dL (8.4-10.2); Carbon Dioxide 28 mmol/L (22-30); Chloride 102 mmol/L (98-107); Estimated CRCL calculation 61 ml/min; Estimated Glomerular Filt Rate > 60; Glucose 125 mg/dL (65-110); Potassium 4.4 mmol/L (3.4-5.0); Sodium 135 mmol/L (137-145)
[2024-10-05 08:00] VITALS: BP 133/89; PULSE 100; PULSE 97; RESP 18; RESP 20; TEMP 36.5; O2SAT 100; O2SAT 95
[2024-10-05] MEDS: IPRATROPIUM 0.5 MG/ALBUTEROL SULFATE 2.5 MG AMPUL.NEB 3 ML INHALATION (09:26)
[2024-10-05 09:28] VITALS: PULSE 100; RESP 20; O2SAT 95
[2024-10-05] MEDS: amLODIPine BESYLATE 5 MG TABLET PO (09:29)
[2024-10-05] MEDS: LOSARTAN POTASSIUM 50 MG TABLET PO (09:30)
[2024-10-05] MEDS: predniSONE 40 MG, predniSONE 10 MG 50 MG PO (09:34)
[2024-10-05 09:40] VITALS: PULSE 100; RESP 20
--- NOTE | 2024-10-05 11:31 | P.PNIM_ITS ---
Progress Note: A&P Assessment and Plan (1) COPD with acute exacerbation: Code(s): J44.1 - Chronic obstructive pulmonary disease with (acute) exacerbation Status: Acute (2) Acute respiratory failure with hypoxemia: Code(s): J96.01 - Acute respiratory failure with hypoxia Status: Acute (3) Acute bacterial bronchitis: Code(s): J20.8 - Acute bronchitis due to other specified organisms; B96.89 - Other specified bacterial agents as the cause of diseases classified elsewhere Status: Acute Plan COPD exacerbation, acute bacterial bronchitis Patient history of COPD, aspartate cough and worsening shortness breast in past 1 day CTA shows no PE, Received bronchodilator in the ED, start DuoNeb scheduled q.6 hours, albuterol nebulizer q.4 hours p.r.n. Start Levaquin 750 mg IV daily Decrease methylprednisolone 60 mg q.6 hours IV to 40 mg q.8 hours IV 10/05/24 change to prednisone po. s/w QVAR, Symbicort, albuterol inhaler. Acute respiratory failure with hypoxemia Possible due to COPD exacerbation Patient is off BiPAP, today Follow venous blood gas showed patient 7.46, pCO2 29, PO2 68.5, bicarbonate 20.2 Continue O2 therapy to keep pulse ox above 92 1 nasal cannular 10/05/24 now on room air Elevated blood pressure Possible undiagnosed hypertension Blood pressure 172/100 in the ED BNP: 61 Start amlodipine 5 mg daily p.o., losartan 50 mg daily p.o. Blood pressure is controlled well dc pt today Subjective Date/time seen: 10/05/24 11:31 Interval history: I saw examined patient today. Patient feels comfortable, pulse ox 95-100% on room air, blood pressure stable, patient denies dyspnea, chest pain, Exam Narrative: GENERAL: Pleasant, in no acute distress. Well-nourished. - EYES: EOMI. Anicteric. - HENT: Moist mucous membranes. - LUNGS: Clear to auscultation bilateral ly, no wheezing, rhonchi, or rales. - CARDIOVASCULAR: Regular rate and rhyth m. No murmur. No JVD. - ABDOMEN: Soft, non-tender and non-dist ended. No palpable masses. - EXTREMITIES: No edema. Peripheral puls es 2+. Non-tender. - NEUROLOGIC: No focal neurological defi cits. CN II-XII grossly intact. - PSYCHIATRIC: Awake, Alert and oriented x 3. Appropriate mood and affect. - SKIN: No rashes or lesions. Warm. - LYMPH: No cervical lymphadenopathy. Objective Data Vital Signs Vital Signs: Vital Signs - 24 hr 10/04/24 12:00 10/04/24 13:29 10/04/24 13:32 Temperature 98.8 F Pulse Rate 112 H 110 H 110 H Respiratory Rate 20 20 20 Blood Pressure 137/68 Pulse Oximetry 99 96 Oxygen Delivery Room Air 10/04/24 13:42 10/04/24 15:56 10/04/24 20:00 Temperature 98.3 F Pulse Rate 116 H 110 H Respiratory Rate 20 16 Blood Pressure 135/69 Pulse Oximetry 98 Oxygen Delivery Room Air 10/04/24 21:35 10/04/24 21:45 10/05/24 00:00 Temperature 97.7 F Pulse Rate 102 H 99 96 Respiratory Rate 20 20 18 Blood Pressure 110/75 Pulse Oximetry 98 Oxygen Delivery 10/05/24 06:46 10/05/24 08:00 10/05/24 09:28 Temperature 97.9 F 97.7 F Pulse Rate 96 97 Respiratory Rate 18 18 Blood Pressure 125/69 133/89 Pulse Oximetry 97 100 95 Oxygen Delivery Room Air 10/05/24 09:28 10/05/24 09:40 Temperature Pulse Rate 100 100 Respiratory Rate 20 20 Blood Pressure Pulse Oximetry Oxygen Delivery Intake/Output Intake/Output: Intake & Output 10/02/24 10/03/24 10/04/24 10/05/24 23:59 23:59 23:59 23:59 Intake Total 748.1 1280 495 Output Total 1125 200 250 Balance -376.9 1080 245 Meds/Results Medications: Active Medications Generic Name Dose Route Start Last Admin Trade Name Freq PRN Reason Stop Dose Admin Albuterol/Ipratropium 3 ml 10/03/24 14:00 10/05/24 09:26 Ipratropium 0.5 Mg/Albuterol Sulfate 2.5 Mg Ampul.Neb 3 Ml INHALATION 3 ml Q6HRT MAYNOR Administration Amlodipine Besylate 5 mg 10/03/24 12:05 10/05/24 09:29 Amlodipine Besylate 5 Mg Tablet PO 5 mg DAILY MAYNOR Administration Levofloxacin 750 mg 10/05/24 14:00 Levofloxacin 750 Mg Tablet PO 10/07/24 14:01 DAILY@1400 [facility] Losartan Potassium 50 mg 10/03/24 12:05 10/05/24 09:30 Losartan Potassium 50 Mg Tablet PO 50 mg DAILY [facility] Administration Prednisone 40 mg/ Prednisone 50 mg 10/05/24 08:00 10/05/24 09:34 10 mg PO 50 mg DAILY@0800 [facility] Administration Radiology Results: ITS Impressions Chest X-Ray 10/03/24 06:28 Impression: Clear lungs. Chest CTA 10/03/24 07:42 Impression: No evidence of pulmonary embolus, aortic dissection, or aortic aneurysm. Small pericardial effusion. Subcentimeter pulmonary nodules, as above, likely benign. For a high-risk patient, consider 12 month follow-up CT. For a low-risk patient, no further follow-up required. Labs Labs: Laboratory Results - last 24 hr 10/04/24 10/05/24 11:53 06:41 WBC 15.2 H RBC 3.83 L Hgb 12.8 L Hct 39.2 L MCV 102.3 H MCH 33.4 MCHC 32.7 RDW 14.3 Plt Count 262 MPV 9.6 Immature Gran % (Auto) 0.7 H Neut % (Auto) 79.0 H Lymph % (Auto) 12.6 L [place] % (Auto) 7.4 Eos % (Auto) 0.2 Baso % (Auto) 0.1 L Lymph # (Auto) 1.91 [place] # (Auto) 1.1 H Eos # (Auto) 0.0 Baso # (Auto) 0.0 Abs Immat Gran (auto) 0.11 H Absolute Neuts (auto) 12.0 H Absolute Nucleated RBC 0.000 Nucleated RBC % 0.0 VBG pH 7.460 H* VBG pCO2 29.1 L* VBG pO2 68.5 H VBG HCO3 20.2 L O2 Delivery Device Room air O2 Liters/Min Not Reportable FiO2 21 Sodium 135 L Potassium 4.4 Chloride 102 Carbon Dioxide 28 Anion Gap 5 BUN 25 H Creatinine 1.15 Estim Creat Clear Calc 61 Estimated GFR > 60 Glucose 125 H Calcium 9.3
--- NOTE | 2024-10-05 13:18 | PM.DS ---
DS: Admitting Diagnosis Discharge Date 10/05/24 Admitting Diagnosis (1) COPD with acute exacerbation: Code(s): J44.1 - Chronic obstructive pulmonary disease with (acute) exacerbation Status: Acute (2) Acute respiratory failure with hypoxemia: Code(s): J96.01 - Acute respiratory failure with hypoxia Status: Acute (3) Acute bacterial bronchitis: Code(s): J20.8 - Acute bronchitis due to other specified organisms; B96.89 - Other specified bacterial agents as the cause of diseases classified elsewhere Status: Acute DS: Discharge Diagnosis Discharge Diagnosis (1) COPD with acute exacerbation: Code(s): J44.1 - Chronic obstructive pulmonary disease with (acute) exacerbation Status: Acute (2) Acute respiratory failure with hypoxemia: Code(s): J96.01 - Acute respiratory failure with hypoxia Status: Acute (3) Acute bacterial bronchitis: Code(s): J20.8 - Acute bronchitis due to other specified organisms; B96.89 - Other specified bacterial agents as the cause of diseases classified elsewhere Status: Acute DS: Summary Hospital Course Hospital Course: 64 years old man with history of asthma, never smoking, presenting with shortness of breath. Present ED with a chief complaint of productive cough and shortness shortness breath. Patient has been having intermittent cough and shortness breast more than a week. Patient visited Urgent Care, patient was prescribed antibiotics bronchodilators and steroid. But patient still has cough with scant phlegm. Patient has been having worsening cough and increased phlegm in past few more days. Dyspnea is getting worse today, therefore his friend called EMS. Upon arrival, EMS found patient was in respiratory distress, and patient was placed on CPAP and brought to ED for evaluation. Patient denies chest pain, headache, focal weakness, abdomen pain nausea vomiting diarrhea dysuria. Upon arrival in the ED, patient was afebrile, tachypnea 32, tachycardia 100, blood pressure stable, patient was found have hypoxemia, respiratory distress. Patient was placed on BiPAP in the ED. CBC showed mild anemia hemoglobin 13.1, ABG showed hypoxemic respiratory failure without CO2 retention. Flu and COVID negative, CTA chest shows no PE, patient received bronchodilators and steroid, patient still has severe dyspnea. We admit patient for further evaluation and management The following med issues have been addressed during hospitalization COPD exacerbation, acute bacterial bronchitis Patient history of COPD, aspartate cough and worsening shortness breast in past 1 day CTA shows no PE, Received bronchodilator in the ED, start DuoNeb scheduled q.6 hours, albuterol nebulizer q.4 hours p.r.n. Start Levaquin 750 mg IV daily Decrease methylprednisolone 60 mg q.6 hours IV to 40 mg q.8 hours IV 10/05/24 change to prednisone 20mg po for 5 more days. Resume home medications: Steroid inhaler, long acting bronchodilators Patient will see his pulmonary doctor in the office Acute respiratory failure with hypoxemia Possible due to COPD exacerbation Patient is off BiPAP, today Follow venous blood gas showed patient 7.46, pCO2 29, PO2 68.5, bicarbonate 20.2 Continue O2 therapy to keep pulse ox above 92 1 nasal cannular 10/05/24 now on room air Elevated blood pressure Possible undiagnosed hypertension Blood pressure 172/100 in the ED BNP: 61 Start amlodipine 5 mg daily p.o., losartan 50 mg daily p.o. Blood pressure is controlled well dc pt today Time Spent with Patient Time attestation: Total time spent providing and/or coordinating discharge services: Exam Narrative: GENERAL: Pleasant, in no acute distress. Well-nourished. - EYES: EOMI. Anicteric. - HENT: Moist mucous membranes. - LUNGS: Clear to auscultation bilaterally, no wheezing, rhonchi, or rales. - CARDIOVASCULAR: Regular rate and rhythm. No murmur. No JVD. - ABDOMEN: Soft, non-tender and non-distended. No palpable masses. - EXTREMITIES: No edema. Peripheral pulses 2+. Non-tender. - NEUROLOGIC: No focal neurological deficits. CN II-XII grossly intact. - PSYCHIATRIC: Awake, Alert and oriented x 3. Appropriate mood and affect. - SKIN: No rashes or lesions. Warm. - LYMPH: No cervical lymphadenopathy. DS: Data Data Completed and Pending Labs on day of discharge: Labs from last 24 hours 10/05/24 06:41 WBC 15.2 H RBC 3.83 L Hgb 12.8 L Hct 39.2 L MCV 102.3 H MCH 33.4 MCHC 32.7 RDW 14.3 Plt Count 262 MPV 9.6 Immature Gran % (Auto) 0.7 H Neut % (Auto) 79.0 H Lymph % (Auto) 12.6 L [place] % (Auto) 7.4 Eos % (Auto) 0.2 Baso % (Auto) 0.1 L Lymph # (Auto) 1.91 [place] # (Auto) 1.1 H Eos # (Auto) 0.0 Baso # (Auto) 0.0 Abs Immat Gran (auto) 0.11 H Absolute Neuts (auto) 12.0 H Absolute Nucleated RBC 0.000 Nucleated RBC % 0.0 Sodium 135 L Potassium 4.4 Chloride 102 Carbon Dioxide 28 Anion Gap 5 BUN 25 H Creatinine 1.15 Estim Creat Clear Calc 61 Estimated GFR > 60 Glucose 125 H Calcium 9.3 Preliminary micro results at discharge 10/03/24 12:36 Blood Culture - Preliminary Blood 10/03/24 12:26 Blood Culture - Preliminary Blood Discharge Plan Discharge Attending physician on discharge: Mary Capellan Discharging Clinician: Mary Capellan Anticipated Discharge Date/Time: 10/05/24 13:20 Patient Disposition: Home, Self-Care Activity: as tolerated Diet: as tolerated and regular Patient Instructions: Antibiotic Form Patient Language: [place] Stand Alone Forms: General Discharge Information Follow-up/Referrals: PHYSICIAN,JUDO TEACHER [Primary Care Provider] - (Patient needs to see PCP in 1 week) Discharge Medications: New doxycycline hyclate 100 mg capsule 100 mg PO DAILY Qty: 7 0RF prednisone 20 mg tablet 20 mg PO DAILY Qty: 5 0RF amlodipine [Norvasc] 5 mg Tablet 5 mg PO DAILY Qty: 30 0RF Continued allopurinol 300 mg tablet 300 mg PO DAILY lisinopril-hydrochlorothiazide 20-25 mg tablet 1 tablet PO DAILY trazodone 150 mg tablet 150 mg PO HS hydroxyzine HCl 10 mg tablet 10 mg PO TID PRN (Reason: anxiety) sertraline 25 mg tablet 25 mg PO DAILY Spiriva Respimat 2.5 mcg/actuation mist 2 inh inhalation DAILY Incruse Ellipta 62.5 mcg/actuation blister with device 1 inh inhalation DAILY fexofenadine [Ameena Allergy] 180 mg tablet 180 mg PO DAILY loratadine 10 mg tablet 10 mg PO DAILY potassium 99 mg tablet 99 mg PO DAILY esomeprazole magnesium [Acid Middle School Music Teacher (esomeprazole)] 20 mg capsule,delayed release(DR/EC) 20 mg PO DAILY vitamin E 268 mg (400 unit) capsule 268 mg PO DAILY vitamin D98-vdbbv acid 2,500-400 mcg tablet,disintegrating 1 tablet PO DAILY vitamin E 670 mg (1,000 unit) capsule 670 mg PO DAILY cholecalciferol (vitamin D3) [Vitamin D3] 25 mcg (1,000 unit) capsule 25 mcg PO DAILY Centrum Adult 50 Plus 80 mcg tablet,chewable 1 tablet PO DAILY albuterol sulfate 90 mcg/actuation HFA aerosol inhaler 2 puff INHALATION Q4H PRN (Reason: shortness of breath or wheezing) Qty: 1 0RF fluticasone propion-salmeterol [Wixela Inhub] 500-50 mcg/dose blister with device 1 inh inhalation Q12H Qty: 1 0RF fluticasone propionate [24 Hour Allergy Relief] 50 mcg/actuation spray,suspension 1 spray intranasal DAILY PRN (Reason: allergy symptoms) Qty: 1 0RF Rx Instructions: administer into each nostril Date of admission: 10/03/24 08:32 Primary Care Provider: PHYSICIAN,JUDO TEACHER Admitting Provider: Mary Capellan Attending physician on admission: Mary Capellan Condition: Stable
[2024-10-05] MEDS: levoFLOXacin 750 MG TABLET PO (13:47)
--- OUTSIDE RECORDS SUMMARY | 2024-10-10 22:50 | XMS_ITS | Clinical Summary ---
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 He has received steroid injections in the past without any relief. Hopefully the gel injection today provides symptomatic relief and allows him to continue activity modification and anti-inflammatories. I am happy to see him back every 3 months for repeat steroid injection, every 6 months for gel injection, or discussion of knee replacement surgery when quality of life necessitates. - Last Documented On 05/22/2024 4:22PM ; [facility] Assessments Includes: Assessments from this encounter Findings Bilateral knee arthritis with varus [id number] collapse, left worse than right. - Last Documented On 05/22/2024 4:22PM ; [facility] Medical Equipment - Implanted Devices Includes: Current Devices No Medical Equipment Recorded Medications Includes: Medications discussed during this encounter and other current Medications Current Medications (continue as prescribed) Tylenol Extra Strength 500 MG Oral Tablet 04/30/2022 Provider: Diagnosis: Last Documented On 2 8:31AM By Sandee Jauregui ATC ; [facility] Fluticasone Propionate 50 MCG/ACT Nasal Suspension 04/2021 Provider: Diagnosis: Last Documented On 9:03AM By Paty Eagle ; [facility] ProAir HFA 108 (90 Base) MCG/ACT Inhalation Aero melvina Solution 05/26/2021 Provider: Diagnosis: Last Documented On 9:03AM By Paty Eagle ; [facility] Lisinopril-hydroCHLOROthiazide 20-25 MG Oral Tablet Provider: Diagnosis: Last Documented On 1 9:03AM By Paty Eagle ; [facility] Allopurinol 300 MG Oral Tablet 05/22/2021 Provider: Diagnosis: Last Documented On 1 9:03AM By Paty Eagle ; [facility] Trazadone 50 MG Tablet 11/12/2016 Provider: Diagnosis: Last Documented On 7 8:55AM By Renetta Brown ; [facility] Past Medications on file Durolane 60 MG/3ML Intra-articular Prefilled Syringe 03/19/2024 - 04/18/2024 Provider: Donald Josue MD Diagnosis: Bilateral primar y osteoarthritis of knee Inject intra-articularly int o bilateral knees in office Last Documented On 4 11:37AM By Marjan Sandoval ; [facility] oxyCODONE-Acetaminophen 5-32 5 MG Oral Tablet 08/24/2023 - 08/31/2023 Provider: Donald Josue MD Diagnosis: i po q6 hrs prn Last Documented On 3 12:19PM By Donald Josue MD ; [facility] HYDROcodone-Acetaminophen 5- 325 MG Oral Tablet 08/16/2023 - 08/23/2023 Provider: Donald Josue MD Diagnosis: i po q 4 hrs prn pain AFTER surgery Last Documented On 3 1:29PM By Donald Josue MD ; [facility] Eliquis 2.5 MG Oral Tablet 03/12/2022 - 04/09/2022 Pro vider: Cholo Dotson MD Diagnosis: 1 tablet po twice a day x 4 weeks AFTER surgery Last Documented On 2 10:05AM By Paty Borges ; [facility] Medications Administered Includes: Administered Medications from this encounter No Administered Medications Recorded Results Includes: Results discussed during this encounter No Results Recorded For Specified Dates History of Present Illness Includes: History of Present Illness from this encounter AURELIA Steve is a 63 year old male. - Allergy list reviewed - Medication list reviewed Patient is here today for bilateral knee arthritis, left worse than right knee. Did have bilateral knee corticosteroid injection at his last visit with some relief from the pain. Tried activity modification and NSAIDs with minimal relief from the pain. He is not interested in any surgical treatment for the bilateral knee pain at this time. Here today for bilateral knee Durolane. 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 Last Documented On 4 2:02PM ; [facility] Smoking status : Former smoker 2 Last Documented On 4 2:02PM ; [facility] Current nonsmoker 06/26/2021 Last Documented On 4 2:02PM ; [facility] Tobacco non-user 06/26/2021 Last Documented On 4 2:02PM ; [facility] Has high school diploma 06/26/2021 Last Documented On 4 2:02PM ; [facility] Marital history single 06/26/2021 Last Documented On 4 2:02PM ; [facility] 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 Last Documented On 4 2:02PM ; [facility] Not using alcohol 11/12/2016 Last Documented On 4 2:02PM ; [facility] Preference for right-handedness 11/12/19 Last Documented On 4 2:02PM ; [facility] Procedures and Surgical History Includes: Procedures from this encounter Procedures Code Diagnosis Performing Provider Service Location Service Date Aspir/inj Major Joint/shoulder,h ip,knee (Bilateral Procedure) Bilateral primary oste[facility]18/2024 Last Documented On 4 10:43PM ; [facility] DUROLANE- hyaluronan or deriv per 1 mg (Right, Left) [id number] Bilateral primary osteoarthritis of knee [facility] 05/18/2024 Last Documented On 4 9:09AM ; [facility] Durolane After obtaining miltno bal informed consent, the knee was sterilely prepped, infiltrated with local anesthetic, aspirated, and injected intra-articularly with 20 mg/mL supplied in a 3mL single-use syringe of Durolane. The patient tolerated the procedure well Last Documented On 4 2:03PM ; [facility] Durolane Lot # [id number] Last Documented On 4 2:03PM ; [facility] Durolane Expiration Date 2026-11-16 Last Documented On 4 2:03PM ; [facility] Durolane Injection Site Bilateral Knee Last Documented On 4 2:03PM ; [facility] Surgical History Last Updated History of rotator cuff repair left with biceps tenodesis 08/31/2023 Last Documented On 4 2:02PM ; [facility] History of total left hip replacement 08/2022 ([facility]) 04/30/2022 Last Documented On 4 2:02PM ; [facility] History of total right hip replacement ([facility]) 04/30/2022 Last Documented On 4 2:02PM ; [facility] History of back surgery 11/12/2016 Last Documented On 4 2:02PM ; [facility] History of neck surgery 11/12/2016 Last Documented On 4 2:02PM ; [facility] History of surgery of the left knee - Ar throscopy 11/12/2016 Last Documented On 4 2:02PM ; [facility] Medical History Includes: Medical History addressed during this encounter Description Last Updated History of gout 06/26/2021 Last Documented On 4 2:02PM ; [facility] Currently wearing eyeglasses 06/26/2021 Last Documented On 4 2:02PM ; [facility] Surgical history reviewed 11/12/2016 Last Documented On 4 2:02PM ; [facility] Family history reviewed 11/12/2016 Last Documented On 4 2:02PM ; [facility] History of asthma 11/12/2016 Last Documented On 4 2:02PM ; [facility] History of hypertension 11/12/2016 Last Documented On 4 2:02PM ; [facility] Past medical history reviewed 11/12/2016 Last Documented On 4 2:02PM ; [facility] Family History Includes: Family History addressed during this encounter Description Last Updated none 06/26/2021 Last Documented On 4 2:02PM ; [facility] Review of Systems Includes: Review of Systems from this encounter Systemic: Not feeling tired. No fever, no chills, and no recent weight change. No night sweats. Head: No head symptoms. Neck: No neck pain, no neck stiffness, and no lump or swelling in the neck. Eyes: No eye symptoms. Otolaryngeal: No otolaryngeal symptoms. Cardiovascular: No cardiovascular symptoms. Pulmonary: No pulmonary symptoms. Gastrointestinal: No gastrointestinal symptoms. Genitourinary: No genitourinary symptoms. Endocrine: No endocrine symptoms. Hematologic: No easy bleeding and no tendency for easy bruising. Neurological: No neurological symptoms. Psychological: No psychological symptoms. Skin: No skin symptoms. Mental Status Includes: Mental Status from this encounter No Mental Status Recorded Functional Status Includes: Functional Status from this encounter No Functional Status Recorded Physical Exam Includes: Physical Exam from this encounter Allergies Includes: Active Allergies No Known Allergies Encounters Encounter Provider Location Date Check-In Time Check-Out Time Diagnosis Injection Follow Up Visit Donald Josue MD [facility] 05/18/20 24 1:49PM 2:27PM Insurance Includes: Active Insurance Policies Plan Name Member ID Group # Subscriber Relationship Effect melba Dates 1 - [employer] [id number] Yovanny Steve Self 07/20/2023 - Unknown Clinical Notes Includes: Clinical Notes from this encounter * Progress note Date Encounter Last Documented by 05/18/2024 Injection Follow Up Visit Last d ocumented on 05/22/2024; 4:22 PM, Donald Josue MD; [facility] Chief Complaint Bilateral Knee Durolane History of Present Illness Yovanny Steve is a 63 year old male. - Allergy list reviewed - Medication list reviewed Patient is here today for bilateral knee arthritis, left worse than right knee. Did have bilateral knee corticosteroid injection at his last visit with some relief from the pain. Tried activity modification and NSAIDs with minimal relief from the pain. He is not interested in any surgical treatment for the bilateral knee pain at this time. Here today for bilateral knee Durolane. User Defined 8 11/26 Current Medication - Allopurinol 300 MG Oral Tablet 90 days, 0 refills - Fluticasone Propionate 50 MCG/ACT Nasal Suspension 90 days, 0 refills - Lisinopril-hydroCHLOROthiazide 20-25 MG Oral Tablet 90 days, 0 refills - ProAir HFA 108 (90 Base) MCG/ACT Inhalation Aerosol Solution 90 days, 0 refills - Trazadone 50 MG Tablet 50 MG 0 days, 0 refills - Tylenol Extra Strength 500 MG Oral Tablet as needed 0 days, 0 refills Past Medical/Surgical History Other: Past medical history reviewed Surgical history reviewed Reported: Medical: Currently wearing eyeglasses. Family history reviewed. Diagnoses: Systemic hypertension. Asthma. Gout Surgical: - Neck surgery - Back surgery - Rotator cuff repair left with biceps tenodesis - Total right hip replacement 03/30/2022 ([facility]) - Total left hip replacement 03/30/2022 ([facility]) - Surgery of left knee - Arthroscopy Social History Tobacco use: Current nonsmoker. Smoking status: Former smoker. Alcohol: Not using alcohol. Drug Use: Never used drugs. Education: Has high school diploma. 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 Motor: Preference for right-handedness. Allergies - No Known Allergies No Metal Allergy. Family History None Review Of Systems Systemic: Not feeling tired. No fever, no chills, and no recent weight change. No night sweats. Head: No head symptoms. Neck: No neck pain, no neck stiffness, and no lump or swelling in the neck. Eyes: No eye symptoms. Otolaryngeal: No otolaryngeal symptoms. Cardiovascular: No cardiovascular symptoms. Pulmonary: No pulmonary symptoms. Gastrointestinal: No gastrointestinal symptoms. Genitourinary: No genitourinary symptoms. Endocrine: No endocrine symptoms. Hematologic: No easy bleeding and no tendency for easy bruising. Neurological: No neurological symptoms. Psychological: No psychological symptoms. Skin: No skin symptoms. Physical Findings Gait: Obvious genu varum deformity bilaterally. Bilateral knees: Skin intact. No effusion. Genu varum deformity, correctable on the right, partially correctable on the left. Tenderness to palpation medial greater than lateral joint line. 2+ patellofemoral crepitus bilaterally. Knees are stable to varus stress. Normal anterior and posterior drawer testing. Sensation grossly intact to light touch with brisk capillary refill distally. Calf supple. User Defined 1 Durolane After obtaining verbal informed consent, the knee was sterilely prepped, infiltrated with local anesthetic, aspirated, and injected intra-articularly with 20 mg/mL supplied in a 3mL single-use syringe of Durolane. The patient tolerated the procedure well, Durolane Lot # [id number], Durolane Expiration Date 2026-11-16, and Durolane Injection Site Bilateral Knee. Right Knee Viscosupplementation Injection After discussion of the risks, benefits, alternatives, and expected outcomes, informed consent was obtained from the patient. The correct site and side were confirmed. After sterile preparation of the right knee with alcohol swabs, Gebauer's Ethyl Chloride was sprayed for superficial anesthetic. 3cc of 2% plain lidocaine was injected into the joint via the anterolateral portal approach. This was followed by 1 syringe of Durolane. The patient tolerated the procedure well and without complications. No immediate adverse reactions were noted. Post-injection care was discussed. Left Knee Viscosupplementation Injection After discussion of the risks, benefits, alternatives, and expected outcomes, informed consent was obtained from the patient. The correct site and side were confirmed. After sterile preparation of the left knee with alcohol swabs, Gebauer's Ethyl Chloride was sprayed for superficial anesthetic. 3cc of 2% plain lidocaine was injected into the joint via the anterolateral portal approach. This was followed by 1 syringe of Durolane. The patient tolerated the procedure well and without complications. No immediate adverse reactions were noted. Post-injection care was discussed. Assessment Bilateral knee arthritis with varus yoth-bg-ypls collapse, left worse than right. Plan He has bilateral knee end-stage arthritis, left worse than right. He has received steroid injections in the past without any relief. Hopefully the gel injection today provides symptomatic relief and allows him to continue activity modification and anti-inflammatories. I am happy to see him back every 3 months for repeat steroid injection, every 6 months for gel injection, or discussion of knee replacement surgery when quality of life necessitates. Health Reminders - Assess Alcohol Use satisfied 11/12/2016. - Assess Tobacco Use satisfied 06/26/2021. Bottom of Document LC/deysi
--- OUTSIDE RECORDS SUMMARY | 2024-10-10 22:50 | XMS_ITS | Encounter Summary ---
Author Organization [facility] Address [address] [place] [address] Care Team Providers Care Mortar Carrier Name Role Phone Keanu Brooks DO Primary Care Provider [phone] Reason for Visit * Reason Onset Date Comments SCHEDULING 02/05/2022 Encounter Details Date Type Department Care Team (Late st Contact Info) Description 02/05/2022 Telephone [facility] [address] [employer] [address] [phone] Keanu Brooks DO [address] [employer] [address] [phone] SCHEDULING Social History Tobacco Use Types Packs/Day Years Used Date Smoking Tobacco: Some Days Cigars Smokeless Tobacco: Never Comments:rarely smokes cigar s Alcohol Use Standard Drinks/Week Comments Yes 0 (1 standard drink = 0.6 oz pur e alcohol) PHQ-2 Answer Date Recorded Retired PHQ-9: Brief Depression Severity Measure Score 0 01/10/2023 Abuse Screen Answer Date Recorded Unsafe at Home or Work/School Not on file Feels Threatened by Someone? Not on file 06/2023 Does Anyone Keep You from Co ntacting Others or Doint Things Outside the Home? Not on file 06/28/2023 Physical Sign of Abuse Present Not on file 1 Housing Stability Answer Date Recorded Current Living Arrangements Not on file 06/19 Potentially Unsafe Housing Conditions Not on ashok e 06/28/2023 Family and Community Support Answer Dallin e Recorded Help with Day-to-Day Activities Not on file 06/28/2023 Lonely or Isolated Not on file 06/28/2023 Employment Answer Date Recorded Do you want help finding or keeping work or a madyson b? Not on file 06/28/2023 Disabilities Answer Date Recorded Concentrating, Remembering, or Making Decisions Difficulty Not on file 06/28/2023 Doing Errands Independently Difficulty Not on fi le 06/28/2023 Education Answer Date Recorded Help with school or training? Not on file Preferred Language Not on file 06/28/2023 PHQ-2 Answer Date Recorded Retired PHQ-9: Brief Depression Severity Measure Score 0 01/10/2023 Sex and Gender Information Value Date Recorded Sex Assigned at Not on file Legal Sex Male 1:12 PM EDT Gender Identity Not on file Sexual Orientation Not on file documented as of this encounter Miscellaneous Notes * Telephone Encounter - Frida Peñaloza RegSched Rep - 02/05/2022 12:20 PM EDT Caller: Yovanny Steve Relationship to patient: Self Best call back number: [phone] Patient is needing: PATIENT IS CALLING TO SCHEDULE A SURGERY CLEARANCE VISIT. SURGERY IS 03/30/22. UNABLE TO WARM TRANSFER. PLEASE ADVISE. documented in this encounter Plan of Treatment Upcoming Encounters Date Type Department Care Team (Late st Contact Info) Description 01/17/2025 9:00 AM EDT Office Visit [facility] [address] [phone] Keanu Brooks DO [address] [phone] documented as of this encounter Visit Diagnoses Not on filedocumented in this encounter Care Teams Mortar Carrier Relationship Specialty Start Date End Date Keanu Brooks DO [address] [address] PCP - General Family Medicine 12/11/18 documented as of this encounter
--- OUTSIDE RECORDS SUMMARY | 2024-10-10 22:50 | XMS_ITS | Encounter Summary ---
[facility] Address [address] [place] [address] Care Team Providers Care Intensive Care Specialist Name Role Phone Keanu Brooks DO Primary Care Provider + [phone] Reason for Visit * Reason Comments Anxiety Hypertension Gout Encounter Details Date Type Department Care Team (Late st Contact Info) Description 09/01/2020 10:15 AM EST Office Visit [facility] [address] [phone] Keanu Brooks DO [address] [employer] [phone] Essential hypertension (Primary Dx); Idiopathic chronic gout of multiple sites without tophus; Generalized anxiety disorder Social History Tobacco Use Types Packs/Day Years Used Date Smoking Tobacco: Some Days Cigars Smokeless Tobacco: Never Comments:rarely smokes cigar s Alcohol Use Standard Drinks/Week Comments Yes 0 (1 standard drink = 0.6 oz pur e alcohol) PHQ-2 Answer Date Recorded PHQ-2 Score 0 01/08/2019 Sex and Gender Information Value Date Recorded Sex Assigned at Not on file Legal Sex Male 1:12 PM EDT Gender Identity Not on file Sexual Orientation Not on file documented as of this encounter Progress Notes * Keanu Brooks DO - 09/01/2020 10:15 AM EST Luis Steve is a 60 y.o. male. Presents today for Chief Complaint Patient presents with ??? Anxiety ??? Hypertension ??? Gout This visit has been rescheduled as a phone visit to comply with patient safety concerns in accordance with CDC recommendations. Total time of discussion was 11 minutes. Patient Telephone VISIT, patient gave consent to treat. History of Present Illness Patient with arterial htn, check every am and normal. Has hx of gout, controlled and no further flares after adjusting allopurinol. He most recently had anxiety, now baseline and stable on zoloft; Nocp/soa; No abd pain; Review of Systems Constitutional: Negative for chills and fever. HENT: Negative for congestion. Respiratory: Negative for cough, chest tightness and shortness of breath. Cardiovascular: Negative for chest pain. Gastrointestinal: Negative for abdominal pain, nausea and vomiting. Musculoskeletal: Negative for myalgias. Patient Active Problem List Diagnosis ??? Asthma ??? ED (erectile dysfunction) ??? Hypertension Social History Socioeconomic History ??? Marital status: Single Spouse name: Not on file ??? Number of children: Not on file ??? Years of education: Not on file ??? Highest education level: Not on file Tobacco Use ??? Smoking status: Current Some Day Smoker Types: Cigars ??? Smokeless tobacco: Never Used ??? Tobacco comment: rarely smokes cigars Substance and Sexual Activity ??? Alcohol use: Yes No Known Allergies Current Outpatient Medications on File Prior to Visit Medication Sig Dispense Refill ??? albuterol sulfate HFA 108 (90 Base) MCG/ACT inhaler Inhale 2 puffs As Needed. every 4 to 6 hours 0 ??? allopurinol (ZYLOPRIM) 300 MG tablet TAKE 1 TABLET DAILY 90 tablet 3 ??? DULERA 200-5 MCG/ACT inhaler INHALE 2 PUFFS TWICE DAILY. RINSE MOUTH AFTER USE. 3 ??? fluticasone (FLONASE) 50 MCG/ACT nasal spray 2 sprays by Each Nare route Daily. 2 ??? lisinopril-hydrochlorothiazide (PRINZIDE,ZESTORETIC) 20-25 MG per tablet Take 1 tablet by mouthDaily. 90 tablet 3 ??? SPIRIVA RESPIMAT 2.5 MCG/ACT aerosol solution inhaler INHALE 2 PUFFS ONCE DAILY 1 ??? tadalafil (CIALIS) 20 MG tablet TAKE 1 TABLET NEEDED FOR ERECTILE DYSFUNCTION 30 tablet 0 ??? Testosterone Cypionate (DEPOTESTOTERONE CYPIONATE) 200 MG/ML injection INJECT O.5MG EVERY WEEK 3 ??? traZODone (DESYREL) 100 MG tablet TAKE 1 TABLET BY MOUTH EVERYDAY AT BEDTIME 90 tablet 0 ??? traZODone (DESYREL) 150 MG tablet Take 1 tablet by mouth Every Night. 90 tablet 1 ??? [DISCONTINUED] sertraline (Zoloft) 25 MG tablet Take 1 tablet by mouth Daily. 30 tablet 0 No current facility-administered medications on file prior to visit. Objective There were no vitals filed for this visit. There is no height or weight on file to calculate BMI. Physical Exam Psychiatric: Behavior: Behavior normal. Thought Content: Thought content normal. Judgment: Judgment normal. Assessment/Plan Diagnoses and all orders for this visit: 1. Essential hypertension (Primary) 2. Idiopathic chronic gout of multiple sites without tophus 3. Generalized anxiety disorder - sertraline (Zoloft) 25 MG tablet; Take 1 tablet by mouth Daily. Dispense: 90 tablet; Refill: 3 Had labs drawn this am Continue medications -Follow up: 12 months and prn documented in this encounter Plan of Treatment Upcoming Encounters Date Type Department Care Team (Late st Contact Info) Description 01/17/2025 9:00 AM EDT Office Visit [facility] [address] [phone] Keanu Brooks DO [address] [phone] documented as of this encounter Visit Diagnoses Diagnosis Essential hypertension- Primary Unspecified essential hypertension Idiopathic chronic gout of multiple sites without tophus Generalized anxiety disorder documented in this encounter Care Teams Intensive Care Specialist Relationship Specialty Start Date End Date Keanu Brooks DO [address] [address] PCP - General Family Medicine 12/11/18 documented as of this encounter
--- OUTSIDE RECORDS SUMMARY | 2024-10-10 22:50 | XMS_ITS | Encounter Summary ---
[facility] Address [address] [place] [address] Care Team Providers Care Shear Grinder Operator Helper Name Role Phone Keanu Brooks DO Primary Care Provider + [phone] Reason for Visit * Reason Onset Date Comments Med Refill 12/17/2019 Encounter Details Date Type Department Care Team (Late st Contact Info) Description 12/17/2019 Refill [facility] [address] [phone] Keanu Brooks DO [address] [address] [address] Other male erectile dysfunction; Other insomnia; Essential hypertension Social History Tobacco Use Types Packs/Day Years [...] on file documented as of this encounter Plan of Treatment Upcoming Encounters Date Type Department Care Team (Late st Contact Info) Description 01/17/2025 9:00 AM EDT Office Visit [facility] [address] [address] Keanu Brooks DO [address] [address] [address] documented as of this encounter Visit Diagnoses Diagnosis Other male erectile dysfunction Other insomnia Essential hypertension Unspecified essential hypertension documented in this encounter Care Teams Shear Grinder Operator Helper Relationship Specialty Start Date End Date Keanu Brooks DO [address] [address] PCP - General Family Medicine 12/11/18 documented as of this encounter
--- OUTSIDE RECORDS SUMMARY | 2024-10-10 22:50 | XMS_ITS | Encounter Summary ---
[facility] Address [address] [place] [address] Care Team Providers Care Tassel Clipper Name Role Phone Keanu Brooks DO Primary Care Provider + [phone] Reason for Visit * Reason Comments Med Refill Encounter Details Date Type Department Care Team (Late st Contact Info) Description 12/13/2022 Refill [facility] [address] [phone] Keanu Brooks DO [address] [employer] [address] [address] Other male erectile dysfunction Social History Tobacco Use Types Packs/Day Years Used Date Smoking Tobacco: Some Days Cigars Smokeless Tobacco: Never Comments:rarely smokes cigar s Alcohol Use Standard Drinks/Week Comments Yes 0 (1 standard drink = 0.6 oz pur e alcohol) PHQ-2 Answer Date Recorded Retired PHQ-9: Brief Depression Severity Measure Score 0 12/21/2021 Sex and Gender Information Value Date Recorded Sex Assigned at Not on file Legal Sex Male 1:12 PM EDT Gender Identity Not on file Sexual Orientation Not on file documented as of this encounter Plan of Treatment Upcoming Encounters Date Type Department Care Team (Late st Contact Info) Description 01/17/2025 9:00 AM EDT Office Visit [facility] [address] [phone] Keanu Brooks DO [address] [address] documented as of this encounter Visit Diagnoses Diagnosis Other male erectile dysfunction documented in this encounter Care Teams Tassel Clipper Relationship Specialty Start Date End Date Keanu Brooks DO [address] [address] PCP - General Family Medicine 12/11/18 documented as of this encounter
--- OUTSIDE RECORDS SUMMARY | 2024-10-10 22:50 | XMS_ITS | Encounter Summary ---
Author Organization [facility] Address [address] [place] [address] Care Team Providers Care Human Resource Statistician Name Role Phone Keanu Giraldo DO Primary Care Provider + [phone] Reason for Visit * Reason Onset Date Comments Prior Authorization 02/21/2024 Encounter Details Date Type Department Care Team (Late st Contact Info) Description 02/21/2024 Telephone [facility] [address] [employer] [address] [address] Keanu Giraldo DO [address] [employer] [address] [phone] Prior Authorization Social History Tobacco Use Types Packs/Day Years [...] PHQ-9: Brief Depression Severity Measure Score 0 01/16/2024 Sex and Gender Information Value Date Recorded Sex Assigned at Not on file Legal Sex Male 1:12 PM EDT Gender Identity Not on file Sexual Orientation Not on file documented as of this encounter Miscellaneous Notes * Telephone Encounter - Ceci King MA - 02/28/2024 4:22 PM EDT Spoke with pt and I think he was just getting confused because the insurance company needed more info but they had faxed a paper for me to fill out. Pt had called back before the questionnaire was received by the insurance. Pt states the pharmacy told him it is now approved. Pt will call me back ifhe has any further issues. * Telephone Encounter - Radha Sinclair RegSched Rep - 02/28/2024 3:15 PM EDTSummary: Medication issues/referral issues Patient called to state that the questionnaire for his medication PA was filled out incorrectly [facility]. He needs someone to call the insurance [facility] (he does not know the ph # to call) to find out what they need as he is out of the medication and needs this. Also spoke to patient about Dermatology referral. His insurance restricts him to go only certain places and he said he will call them to get a name of a Director Of Anesthesia Services approved by the insurance and call us back to complete the referral. * Telephone Encounter - Ceci King MA - 02/28/2024 8:54 AM EDT [facility] faxed a questionnaire over and I filled it out and faxed it back for the missing info. * Telephone Encounter - John Vasquez RegSched Rep - 02/24/2024 2:36 PM EDT Caller: Yovanny Steve Relationship: Self Best call back number: [phone] What was the call regarding: PATIENT STATES THAT HE FOLLOWED UP WITH INSURANCE, AND WAS ADVISED TO REQUEST PCP CALL PROVIDED PRIOR AUTHORIZATION NUMBER TO OBTAIN MISSING INFORMATION. OPTION 2 * Telephone Encounter - Maday Ferguson MA - 02/24/2024 9:56 AM EDT Please handle thank you * Telephone Encounter - Radha Harkins RegSched Rep - 02/24/2024 9:35 AM EDT Caller: Yovanny Steve Relationship: Self Best call back number: [phone] What is the best time to reach you: ANYTIME What was the call regarding: PATIENT STATED HE RECEIVED A CALL FROM DR GIRALDO OFFICE STATING THE INFORMATION WAS FAXED TO HIS INSURANCE. PATIENT STATED HIS INSURANCE HAS NOW INFORMED HIM THAT THIS PRIOR AUTHORIZATION HAS BEEN DENIED BECAUSE THE INSURANCE DID NOT RECEIVE ALL THE PROPER INFORMATION FOR THIS PRESCRIPTION FROM DR GIRALDO'S OFFICE. PATIENT STATED HE DOES NOT KNOW WHAT TO DO FOR THIS. PATIENT STATED HE HAS NOW BEEN OUT OF THIS MEDICATION FOR WEEKS. PLEASE CALL CEE TO ADVISE PATIENT. * Telephone Encounter - Ceci King MA - 02/22/2024 11:38 AM EDT Pt informed that PA has already been submitted and we are just waiting on a decision. * Telephone Encounter - Ceci King MA - 02/22/2024 8:08 AM EDT When I went on Cover My Meds to submit the PA, I got a message that PA is pending so a PA has already been started on pt. Will call pt and let him know. * Telephone Encounter - Le Song RegSched Rep - 02/21/2024 10:55 AM EDT Caller: Yovanny Steve Relationship: Self Best call back number: [phone] Who are you requesting to speak with (clinical staff, provider, specific staff member): CLINICAL STAFF What was the call regarding: NEEDS A PA FOR hydrOXYzine (ATARAX) 10 MG tablet documented in this encounter Plan of Treatment Upcoming Encounters Date Type Department Care Team (Late st Contact Info) Description 01/17/2025 9:00 AM EDT Office Visit [facility] [address] [address] Keanu Giraldo DO [address] [phone] documented as of this encounter Visit Diagnoses Not on filedocumented in this encounter Care Teams Human Resource Statistician Relationship Specialty Start Date End Date Keanu Giraldo DO [address] [address] PCP - General Family Medicine 12/11/18 documented as of this encounter
--- OUTSIDE RECORDS SUMMARY | 2024-10-10 22:50 | XMS_ITS | Encounter Summary ---
[facility] Address [address] [place] [address] Care Team Providers Care Barrel Painter Name Role Phone Keanu Brooks DO Primary Care Provider + [phone] Reason for Visit * Reason Comments Med Refill Encounter Details Date Type Department Care Team (Late st Contact Info) Description 05/27/2020 Refill [facility] [address] [employer] [address] [address] Keanu Brooks DO [address] [employer] [address] [address] Social History Tobacco Use Types Packs/Day Years [...] Description 01/17/2025 9:00 AM EDT Office Visit [facility] [address] [employer] [address] [address] [place] [address] [employer] [address] [address] documented as of this encounter Visit Diagnoses Not on filedocumented in this encounter Care Teams Barrel Painter Relationship Specialty Start Date End Date Keanu Brooks DO [address] [place] [address] PCP - General Family Medicine 12/11/18 documented as of this encounter
--- OUTSIDE RECORDS SUMMARY | 2024-10-10 22:50 | XMS_ITS | Encounter Summary ---
Author Organization [facility] Address [address] [place] [address] Care Team Providers Care Driller Brake Lining Name Role Phone Keanu Brooks DO Primary Care Provider + [phone] Reason for Visit * Reason Onset Date Comments Med Refill 12/27/2021 Encounter Details Date Type Department Care Team (Late st Contact Info) Description 12/27/2021 Refill [facility] [address] [employer] [address] [phone] Keanu Brooks DO [address] [address] Primary hypertension (Primary Dx); Idiopathic chronic gout of multiple sites without tophus Social History Tobacco Use Types Packs/Day Years [...] Description 01/17/2025 9:00 AM EDT Office Visit [facility] [address] [employer] [address] [address] Keanu Brooks DO [address] [address] documented as of this encounter Visit Diagnoses Diagnosis Primary hypertension- Primary Unspecified essential hypertension Idiopathic chronic gout of multiple sites without tophus documented in this encounter Care Teams Driller Brake Lining Relationship Specialty Start Date End Date Keanu Brooks DO [address] [place] [address] PCP - General Family Medicine 12/11/18 documented as of this encounter
--- OUTSIDE RECORDS SUMMARY | 2024-10-10 22:50 | XMS_ITS | Encounter Summary ---
[facility] Address [address] [place] [address] Care Team Providers Care Corn Chip Maker Name Role Phone Keanu Brooks DO Primary Care Provider + [phone] Reason for Visit * Reason Comments Med Refill Encounter Details Date Type Department Care Team (Late st Contact Info) Description 12/30/2022 Refill [facility] [address] [address] Keanu Brooks DO [address] [phone] Social History Tobacco Use Types Packs/Day Years [...] Description 01/17/2025 9:00 AM EDT Office Visit [facility] [address] [address] Keanu Brooks DO [address] [employer] [address] [address] documented as of this encounter Visit Diagnoses Not on filedocumented in this encounter Care Teams Corn Chip Maker Relationship Specialty Start Date End Date Keanu Brooks DO [address] [place] [address] PCP - General Family Medicine 12/11/18 documented as of this encounter
--- OUTSIDE RECORDS SUMMARY | 2024-10-10 22:50 | XMS_ITS | Encounter Summary ---
[facility] [address] [place] [address] Care Team Providers Care Glass Driller Name Role Phone Keanu Brooks DO Primary Care Provider + [phone] Reason for Referral * Consultation (Routine) - Closed Specialty Diagnoses / Procedures Referred By Contac t Referred To Contact Dermatology Diagnoses Eczema, unspecified type Procedures MS OFFICE/OUTPATIENT NEW MODERATE MDM 45 MINUTES Keanu Brooks DO [address] [address] Phone: tel: fax: [facility] [address] [place] [phone] Phone: tel: fax: Referral ID Status Reason Start Date Expiration Date Visits Requested Visits Authorized [id number] Closed Specialty Services Required Insurance Requirement 02/17/2024 02/16/2025 1 1 Encounter Details Date Type Department Care Team (Late st Contact Info) Description 02/17/2024 Telephone [facility] [address] [phone] Keaun Brooks DO [address] [phone] Social History Tobacco Use Types Packs/Day Years [...] encounter Miscellaneous Notes * Telephone Encounter - Maday Ferguson MA - 02/17/2024 2:48 PM EDT Med sent and referral entered documented in this encounter Plan of Treatment Upcoming Encounters Date Type Department Care Team (Late st Contact Info) Description 01/17/2025 9:00 AM EDT Office Visit [facility] [address] [place] [phone] Keanu Brooks DO [address] [place], [place] [phone] documented as of this encounter Visit Diagnoses Diagnosis Eczema, unspecified type- Primary MAITE (generalized anxiety disorder) Generalized anxiety disorder documented in this encounter Care Teams Glass Driller Relationship Specialty Start Date End Date Keanu Brooks DO [address] [place] [address] PCP - General Family Medicine 12/11/18 documented as of this encounter
--- OUTSIDE RECORDS SUMMARY | 2024-10-10 22:50 | XMS_ITS | Encounter Summary ---
[facility] [address] [place] [address] Care Team Providers Care Political Organizer Name Role Phone Keanu Brooks DO Primary Care Provider + [phone] Reason for Visit * Reason Comments Med Refill Encounter Details Date Type Department Care Team (Late st Contact Info) Description 05/22/2020 Refill [facility] [address] [address] [phone] Keanu Brooks DO [address] [address] Other male erectile dysfunction Social [...] [facility] [address] [address] Keanu Brooks DO [address] [address] documented as of this encounter Visit Diagnoses Diagnosis Other male erectile dysfunction documented in this encounter Care Teams Political Organizer Relationship Specialty Start Date End Date Keanu Brooks DO [address] [place] [address] PCP - General Family Medicine 12/11/18 documented as of this encounter
--- OUTSIDE RECORDS SUMMARY | 2024-10-10 22:50 | XMS_ITS | Encounter Summary ---
[facility] Address [address] [place] [address] Care Team Providers Care Rail Transportation Operator Name Role Phone Keanu Brooks DO Primary Care Provider + [phone] Reason for Visit * Reason Comments Med Refill Encounter Details Date Type Department Care Team (Late st Contact Info) Description 01/19/2022 Refill [facility] [address] [address] Keanu Brooks DO [address] [employer] [address] [address] Essential hypertension Social History Tobacco Use Types [...] Description 01/17/2025 9:00 AM EDT Office Visit [facility] [address] [address] Keanu Brooks DO [address] [address] documented as of this encounter Visit Diagnoses Diagnosis Essential hypertension Unspecified essential hypertension documented in this encounter Care Teams Rail Transportation Operator Relationship Specialty Start Date End Date Keanu Brooks DO [address] [address] PCP - General Family Medicine 12/11/18 documented as of this encounter
--- OUTSIDE RECORDS SUMMARY | 2024-10-10 22:50 | XMS_ITS | Encounter Summary ---
Author Organization [facility] Address [address] [place] [address] Care Team Providers Care Arrow Point Attacher Name Role Phone Keanu Brooks DO Primary Care Provider + [phone] Reason for Visit * Reason Comments Med Refill Encounter Details Date Type Department Care Team (Late st Contact Info) Description 12/04/2020 Refill [facility] [address] He[address]Steve [place] [phone] Keanu Brooks DO [address] [employer] [address] [place], [place] [phone] Other insomnia Social History Tobacco Use Types Packs/Day Years [...] encounter Miscellaneous Notes * Telephone Encounter - Shimon Eagle MA - 12/04/2020 7:56 AM EDTSummary: MED RIFILL 09/01/20 documented in this encounter Plan of Treatment Upcoming Encounters Date Type Department Care Team (Late st Contact Info) Description 01/17/2025 9:00 AM EDT Office Visit [facility] [address] [address] Keanu Brooks DO [address] [address] documented as of this encounter Visit Diagnoses Diagnosis Other insomnia documented in this encounter Care Teams Arrow Point Attacher Relationship Specialty Start Date End Date Keanu Brooks DO [address] [address] PCP - General Family Medicine 12/11/18 documented as of this encounter
--- OUTSIDE RECORDS SUMMARY | 2024-10-10 22:50 | XMS_ITS | Encounter Summary ---
[facility] [address] [place] [address] Care Team Providers Care Director Of Product Management Name Role Phone Keanu Brooks DO Primary Care Provider + [phone] Reason for Visit * Reason Comments Med Refill Encounter Details Date Type Department Care Team (Late st Contact Info) Description 02/06/2020 Refill [facility] [address] [address] Keanu Brooks DO [address] [address] Social History Tobacco Use Types [...] 01/17/2025 9:00 AM EDT Office Visit [facility] [address] [address] Keanu Brooks DO [address] [address] documented as of this encounter Visit Diagnoses Not on filedocumented in this encounter Care Teams Director Of Product Management Relationship Specialty Start Date End Date Keanu Brooks DO [address] [place] [address] PCP - General Family Medicine 12/11/18 documented as of this encounter
--- OUTSIDE RECORDS SUMMARY | 2024-10-10 22:50 | XMS_ITS | Encounter Summary ---
Author Organization [facility] ystem Address [address] [place] [address] Care Team Providers Care Combination Welder Apprentice Name Role Phone Keanu Giraldo DO Primary Care Provider + [phone] Reason for Visit * Reason Onset Date Comments New Med Request 04/20/2024 Encounter Details Date Type Department Care Team (Late st Contact Info) Description 04/20/2024 Telephone [facility] [address] [address] Keanu Giraldo DO [address] [phone] New Med Request Social History Tobacco Use Types Packs/Day Years [...] Telephone Encounter - Ceci King MA - 04/20/2024 1:42 PM EDT Pt informed and voiced understanding. * Telephone Encounter - Frida Peñaloza RegSched Rep - 04/20/2024 10:32 AM EDT Caller: Yovanny Steve Relationship: Self Best call back number: [phone] Requested Prescriptions: triamcinolone (KENALOG) 0.1 % cream Requested Prescriptions No prescriptions requested or ordered in this encounter Pharmacy where request should be sent: [facility]/pharmacy #[id number] - [address] [facility] - [phone] - [phone] Last office visit with prescribing clinician: 01/16/2024 Last telemedicine visit with prescribing clinician: Visit date not found Next office visit with prescribing clinician: 01/17/2025 Additional details provided by patient: PATIENT IS CALLING TO ASK IF DR GIRALDO WOULD PRESCRIBE THEABOVE MEDICATION FOR A SKIN CONDITION, ECZEMA. HE STATES HE HAS A DERMATOLOGY APPOINTMENT BUT NOT UNTIL . HE IS REQUESTING THE LARGE TUBE. Does the patient have less than a 3 day supply: [] Yes [] No Would you like a call back once the refill request has been completed: [] Yes [] No If the office needs to give you a call back, can they leave a voicemail: [] Yes [] No Domingo Finn Rep 04/20/24 10:33 EDT PLEASE ADVISE. documented in this encounter Plan of Treatment Upcoming Encounters Date Type Department Care Team (Late st Contact Info) Description 01/17/2025 9:00 AM EDT Office Visit [facility] [address] [phone] Keanu Giraldo DO [address] [address] documented as of this encounter Visit Diagnoses Not on filedocumented in this encounter Care Teams Combination Welder Apprentice Relationship Specialty Start Date End Date Keanu Giraldo DO [address] [address] PCP - General Family Medicine 12/11/18 documented as of this encounter
--- OUTSIDE RECORDS SUMMARY | 2024-10-10 22:50 | XMS_ITS | Encounter Summary ---
Author Organization [facility] yste Address [address] [place] [address] Care Team Providers Care Warehouse Unloader Name Role Phone Keanu Brooks DO Primary Care Provider + [phone] Reason for Visit * Reason Onset Date Comments Med Refill 11/16/2021 Encounter Details Date Type Department Care Team (Late st Contact Info) Description 11/16/2021 Refill [facility] [address] [phone] Keanu Brooks DO [address] [facility] 6 [place], [place] [id number] Other insomnia; Essential hypertension Social History Tobacco [...] encounter Miscellaneous Notes * Telephone Encounter - Kimmie Arguelles RegSched Rep - 11/16/2021 8:49 AM EST Caller: Yovanny Steve Relationship: Self Best call back number: [phone] Requested Prescriptions: Requested Prescriptions Pending Prescriptions Disp Refills ??? traZODone (DESYREL) 150 MG tablet 90 tablet 0 Sig: Take 1 tablet by mouth Every Night. ??? lisinopril-hydrochlorothiazide (PRINZIDE,ZESTORETIC) 20-25 MG per tablet 30 tablet 0 Sig: Take 1 tablet by mouth Daily. PLEASE CALL THE OFFICE FOR AN APPT Pharmacy where request should be sent: [id number] - [place], [place] - [address] AT [facility] - [phone] - [phone] FX Additional details provided by patient: THE PATIENT STATES THAT HE IS OUT OF THE ABOVE MEDICATIONS AND WILL NEED A REFILL CEE. 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 THE PATIENT SCHEDULED A PHYSICAL/MED REFILL FOR 01/04/2022 - THIS WAS THE SOONEST APPOINTMENT THE HUB COULD FIND. PLEASE LET THE PATIENT KNOW WHEN OR IF THESE MEDICATIONS ARE CALLED IN. Does the patient have less than a 3 day supply: [x] Yes [] No Domingo Elise 11/16/21 08:50 EST documented in this encounter Plan of Treatment Upcoming Encounters Date Type Department Care Team (Late st Contact Info) Description 01/17/2025 9:00 AM EDT Office Visit [facility] [address] [phone] Keanu Boroks DO [address] [phone] documented as of this encounter Visit Diagnoses Diagnosis Other insomnia Essential hypertension Unspecified essential hypertension documented in this encounter Care Teams Warehouse Unloader Relationship Specialty Start Date End Date Keanu Brooks DO [address] [address] PCP - General Family Medicine 12/11/18 documented as of this encounter
--- OUTSIDE RECORDS SUMMARY | 2024-10-10 22:50 | XMS_ITS | Encounter Summary ---
Author Organization [facility] yste Address [address] [place] [address] Care Team Providers Care Machine Bobbin Winder Name Role Phone Keanu Brooks DO Primary Care Provider + [phone] Reason for Visit * Reason Comments Pre-op Exam Surgery clearance bi lateral hip surgery Encounter Details Date Type Department Care Team (Late st Contact Info) Description 03/12/2022 11:00 AM EDT Office Visit [facility] [address] [place] [phone] Keanu Brooks DO [address] [employer] [employer] [facility] 6 [place], [place] [phone] Preoperative clearance (Primary Dx); Essential hypertension Social History Tobacco Use Types [...] on file documented as of this encounter Last Filed Vital Signs Vital Sign Reading Time Taken Comments Blood Pressure 112/64 03/12/2022 11:10 AM EDT Pulse 91 03/12/2022 11:10 AM EDT Temperature 36.4 ??C (97.5 ??F) 03/12/2022 11:10 AM E DT Respiratory Rate 20 03/12/2022 11:10 AM EDT Oxygen Saturation 98% 03/12/2022 11:10 AM EDT Inhaled Oxygen Concentration - - Weight 88.9 kg (196 lb) 03/12/2022 11:10 AM EDT Height 172.7 cm (5' 8 ) 03/12/2022 11:10 AM EDT Body Mass Index 29.8 03/12/2022 11:10 AM EDT documented in this encounter Progress Notes * Keanu Brooks, - 03/12/2022 11:00 AM EDT Images from the original note were not included. Luis Steve is a 61 y.o. male. Presents today for Chief Complaint Patient presents with ??? Pre-op Exam Surgery clearance bilateral hip surgery Preop bilateral LUCERO Surgeon: Dr. Dotson Patient 61 y/o male with hypertension and asthma; Both have been very well controlled; NO cp/soa; no abd pain; no f/c; No urinary symptoms. He has OA bilateral and failed conservative measures; Desires LUCERO and plans on bilateral. No issues with anestheia in past. History of Present Illness Review of Systems Respiratory: Negative for shortness of breath and wheezing. Cardiovascular: Negative for chest pain and leg swelling. Gastrointestinal: Negative for abdominal pain, nausea and vomiting. Patient Active Problem List Diagnosis ??? Asthma ??? ED (erectile dysfunction) ??? Hypertension ??? Sleep apnea Social History Socioeconomic History ??? Marital status: Single Tobacco Use ??? Smoking status: Current Some Day Smoker Types: Cigars ??? Smokeless tobacco: Never Used ??? Tobacco comment: rarely smokes cigars Substance and Sexual Activity ??? Alcohol use: Yes ??? Drug use: Never ??? Sexual activity: Defer No Known Allergies Current Outpatient Medications on File Prior to Visit Medication Sig Dispense Refill ??? albuterol sulfate HFA 108 (90 Base) MCG/ACT inhaler Inhale 2 puffs Every 6 (Six) Hours As Needed for Wheezing. every 4 to 6 hours 8 g 3 ??? allopurinol (ZYLOPRIM) 300 MG tablet Take 1 tablet by mouth Daily. 90 tablet 3 ??? Dulera 200-5 MCG/ACT inhaler Inhale 2 puffs 2 (Two) Times a Day. Ok disp 90 days 13 g 3 ??? fluticasone (FLONASE) 50 MCG/ACT nasal spray 2 sprays by Each Nare route Daily. 48 g 2 ??? lisinopril-hydrochlorothiazide (PRINZIDE,ZESTORETIC) 20-25 MG per tablet TAKE 1 TABLET BY MOUTHDAILY 30 tablet 3 ??? sertraline (Zoloft) 25 MG tablet Take 1 tablet by mouth Daily. 90 tablet 3 ??? Spiriva Respimat 2.5 MCG/ACT aerosol solution inhaler Inhale 2 puffs Daily. 12 g 3 ??? tadalafil (CIALIS) 20 MG tablet Take 1 tablet by mouth Daily As Needed for Erectile Dysfunction. 30 tablet 12 ??? Testosterone Cypionate (DEPOTESTOTERONE CYPIONATE) 200 MG/ML injection INJECT O.5MG EVERY WEEK 3 ??? traZODone (DESYREL) 150 MG tablet TAKE 1 TABLET BY MOUTH EVERY NIGHT 30 tablet 0 No current facility-administered medications on file prior to visit. Objective Vitals: 03/12/22 1110 BP: 112/64 Pulse: 91 Resp: 20 Temp: 97.5 ??F (36.4 ??C) TempSrc: Temporal SpO2: 98% Weight: 88.9 kg (196 lb) Height: 172.7 cm (68 ) PainSc: 0-No pain Body mass index is 29.8 kg/m??. Physical Exam Vitals and nursing note reviewed. Constitutional: Appearance: He is well-developed. HENT: Head: Normocephalic and atraumatic. Neck: Thyroid: No thyromegaly. Vascular: No JVD. Cardiovascular: Rate and Rhythm: Normal rate and regular rhythm. Heart sounds: Normal heart sounds. No murmur heard. No friction rub. No gallop. Pulmonary: Effort: Pulmonary effort is normal. No respiratory distress. Breath sounds: Normal breath sounds. No wheezing or rales. Abdominal: General: Bowel sounds are normal. There is no distension. Palpations: Abdomen is soft. Tenderness: There is no abdominal tenderness. There is no guarding or rebound. Musculoskeletal: Cervical back: Neck supple. Skin: General: Skin is warm and dry. Neurological: Mental Status: He is alert. Psychiatric: Behavior: Behavior normal. EKG read by cardiology and normal CMP normal cr 1.31 CXR negative Assessment & Plan Diagnoses and all orders for this visit: 1. Preoperative clearance (Primary) 2. Essential hypertension patient with controled htn, no cardiac history; He is medically cleared for surgery and may proceed -hypertension - controlled, continue medications -Follow up: 6 months and prn documented in this encounter Plan of Treatment Upcoming Encounters Date Type Department Care Team (Late st Contact Info) Description 01/17/2025 9:00 AM EDT Office Visit [facility] [address] [phone] Keanu Brooks DO [address] [address] documented as of this encounter Visit Diagnoses Diagnosis Preoperative clearance- Primary Unspecified pre-operative examination Essential hypertension Unspecified essential hypertension documented in this encounter Care Teams Machine Bobbin Winder Relationship Specialty Start Date End Date Keanu Brooks DO [address] [address] PCP - General Family Medicine 12/11/18 documented as of this encounter
--- OUTSIDE RECORDS SUMMARY | 2024-10-10 22:50 | XMS_ITS | Encounter Summary ---
Author Organization [facility] yste Address [address] [place] [address] Care Team Providers Care Manager Of Corporate Communications Name Role Phone Keanu Brooks DO Primary Care Provider + [phone] Reason for Visit * Reason Onset Date Comments Med Refill 10/06/2023 Encounter Details Date Type Department Care Team (Late st Contact Info) Description 10/06/2023 Refill [facility] [address] [phone] Keanu Brooks DO [address] [facility] 6 [place], [place] [phone] Social History Tobacco Use Types Packs/Day Years [...] as of this encounter Progress Notes * Robyn Murphy MA - 10/06/2023 5:12 PM ESTAddended by: ROBYN MURPHY on: 10/06/2023 05:12 PM Modules accepted: Orders documented in this encounter Plan of Treatment Upcoming Encounters Date Type Department Care Team (Late st Contact Info) Description 01/17/2025 9:00 AM EDT Office Visit [facility] [address] [phone] Keanu Brooks DO [address] [phone] documented as of this encounter Visit Diagnoses Not on filedocumented in this encounter Care Teams Manager Of Corporate Communications Relationship Specialty Start Date End Date Keanu Brooks DO [address] [address] PCP - General Family Medicine 12/11/18 documented as of this encounter
--- OUTSIDE RECORDS SUMMARY | 2024-10-10 22:50 | XMS_ITS | Encounter Summary ---
[facility] Address [address] [place] [address] Care Team Providers Care Perianesthesia Rn Name Role Phone Keanu Brooks DO Primary Care Provider + [phone] Reason for Visit * Reason Onset Date Comments New Med Request 10/04/2023 Encounter Details Date Type Department Care Team (Late st Contact Info) Description 10/04/2023 Telephone [facility] [address] [phone] Keanu Brooks DO [address] [phone] New Med Request Social History Tobacco Use [...] Telephone Encounter - Ceci King MA - 10/04/2023 2:34 PM EST 90 day supply with 1 refill [address] [facility]. * Telephone Encounter - Ebony Seay RegSched Rep - 10/04/2023 2:18 PM EST Pharmacy Name: [facility] - [place] - [facility] TO REGISTERED [facility] - [phone] PH - [phone] FX What medication are you calling in regards to: traZODone (DESYREL) 150 MG tablet What question does the pharmacy have: MEDICATION SENT FOR 2 WEEK SUPPLY. PATIENT REQUESTING SCRIPT CHANGED TO 90 DAY SUPPLY documented in this encounter Plan of Treatment Upcoming Encounters Date Type Department Care Team (Late st Contact Info) Description 01/17/2025 9:00 AM EDT Office Visit [facility] [address] [place] [phone] Keanu Brooks DO [address] [place], [place] [phone] documented as of this encounter Visit Diagnoses Diagnosis Other insomnia documented in this encounter Care Teams Perianesthesia Rn Relationship Specialty Start Date End Date Keanu Brooks DO [address] [address] PCP - General Family Medicine 12/11/18 documented as of this encounter
--- OUTSIDE RECORDS SUMMARY | 2024-10-10 22:50 | XMS_ITS ---
Care Plan - [facility] Created on: October 10, 2024 Yovanny Steve : 1960 Sex: Male Author Organization [facility] Address [address] [facility] [address] [place] [address] Phone Care Team Providers Care Digital Media Manager Name Role Phone Keanu Brooks DO Primary Care Provider [phone] Liat REED, Donald Fuentes Unavailable [phone]
--- OUTSIDE RECORDS SUMMARY | 2024-10-10 22:50 | XMS_ITS | Encounter Summary ---
Author Organization [facility] yste Address [address] [place] [address] Care Team Providers Care Ice Seller Name Role Phone Keanu Brooks DO Primary Care Provider + [phone] Reason for Visit * Reason Onset Date Comments EMERGENCY MEDICATION REFILL 07/14/2023 Encounter Details Date Type Department Care Team (Late st Contact Info) Description 07/14/2023 Telephone [facility] [address] [employer] [address] [address] Keanu Brooks DO [address] [employer] [facility] 6 [place], [place] [phone] EMERGENCY MEDICATION REFILL Social History Tobacco Use Types Packs/Day Years [...] Telephone Encounter - Maday Ferguson MA - 07/14/2023 2:02 PM EDT Emergency supply sent * Telephone Encounter - Miki Sanford - 07/14/2023 9:34 AM EDT Caller: Yovanny Steve Relationship: Self Best call back number: [phone]* Requested Prescriptions: Requested Prescriptions Pending Prescriptions Disp Refills traZODone (DESYREL) 150 MG tablet 90 tablet 3 Sig: Take 1 tablet by mouth Every Night. Pharmacy where request should be sent: [id number] [place] [address] AT [facility] [phone] [facility] [phone] FX Last office visit with prescribing clinician: 01/10/2023 Last telemedicine visit with prescribing clinician: Visit date not found Next office visit with prescribing clinician: 01/16/2024 Additional details provided by patient: PATIENT REQUEST EMERGENCY SUPPLY OF MEDICATION SENT TO LOCAL PHARMACY UNTIL HIS MEDICATION ARRIVES FROM [facility]. THE PATIENT STATES HE IS OUT OF MEDICATION. Does the patient have less than a 3 day supply: [x] Yes [] No Would you like a call back once the refill request has been completed: [x] Yes [] No If the office needs to give you a call back, can they leave a voicemail: [x] Yes [] No Miki Sanford 07/14/23 09:34 EDT documented in this encounter Plan of Treatment Upcoming Encounters Date Type Department Care Team (Late st Contact Info) Description 01/17/2025 9:00 AM EDT Office Visit [facility] [address] [phone] Keanu Brooks DO [address] [address] documented as of this encounter Visit Diagnoses Diagnosis Other insomnia documented in this encounter Care Teams Ice Seller Relationship Specialty Start Date End Date Keanu Brooks DO [address] [address] PCP - General Family Medicine 12/11/18 documented as of this encounter
--- OUTSIDE RECORDS SUMMARY | 2024-10-10 22:50 | XMS_ITS | Encounter Summary ---
[facility] Organization [facility] Address [address] [place] [address] Care Team Providers Care Overnight Associate Name Role Phone Keanu Brooks DO Primary Care Provider + [phone] Reason for Visit * Reason Comments Med Refill Encounter Details Date Type Department Care Team (Late st Contact Info) Description 11/06/2021 Refill [facility] [email or web address] [address] [phone] Keanu Brooks DO [address] [employer] [address] [address] Other insomnia Social History Tobacco Use Types [...] Description 01/17/2025 9:00 AM EDT Office Visit [facility] [address] [address] Keanu Brooks DO [address] [employer] [address] [address] documented as of this encounter Visit Diagnoses Diagnosis Other insomnia documented in this encounter Care Teams Overnight Associate Relationship Specialty Start Date End Date Keanu Brooks DO [address] [place] [address] PCP - General Family Medicine 12/11/18 documented as of this encounter
--- OUTSIDE RECORDS SUMMARY | 2024-10-10 22:50 | XMS_ITS | Encounter Summary ---
[facility] Address [address] [place] [address] Care Team Providers Care Clinical Services Manager Name Role Phone Keanu Brooks DO Primary Care Provider + [phone] Reason for Visit * Reason Comments Annual Exam physical Hypertension Asthma Erectile Dysfunction Encounter Details Date Type Department Care Team (Late st Contact Info) Description 12/21/2021 1:00 PM EDT Office Visit [facility] [address] [id number] Keanu Brooks DO [address] [id number] Wellness examination (Primary Dx); Primary hypertension; Idiopathic chronic gout of multiple sites without tophus; Essential hypertension; Generalized anxiety disorder; Other male erectile dysfunction; Other insomnia; Dyslipidemia; Class 1 obesity due to excess calories with serious comorbidity and body mass index (BMI) of 30.0 to 30.9 in adult Social History Tobacco Use Types Packs/Day Years Used Date Smoking Tobacco: Some Days Cigars Smokeless Tobacco: Never Tobacco Cessation:Ready to Q uit: Yes; Counseling Given: Yes Comments:rarely smokes cigars Alcohol Use Standard Drinks/Week Comments Yes 0 [...] Sign Reading Time Taken Comments Blood Pressure 120/68 12/21/2021 1:04 PM EDT Pulse 93 12/21/2021 1:04 PM EDT Temperature - - Respiratory Rate - - Oxygen Saturation 98% 12/21/2021 1:04 PM EDT Inhaled Oxygen Concentration - - Weight 90.3 kg (199 lb) 12/21/2021 1:04 PM EDT Height 172.7 cm (5' 8 ) 12/21/2021 1:04 PM EDT Body Mass Index 30.26 12/21/2021 1:04 PM EDT documented in this encounter Patient Instructions * Patient Instructions* Keanu Brooks, - 12/21/2021 1:38 PM EDT 9-6-7-Almost None! Healthy Habits Start Early EAT 5 OR MORE SERVINGS OF VEGETABLES AND FRUITS EVERY DAY. Help Yovanny get three vegetables and two fruits each day. Red, green, yellow, orange...encourage them to try all the colors so they can enjoy different flavors and get more vitamins. How can I help Yovanny do this? -BE PATIENT WITH Yovanny, remember it may take 10 times before they start to like new food. So, startwith small bites and just keep trying. -Serve at least one vegetable or fruit at every meal. Even try two. Remember, portions do not have to be as big as you think. -Encourage eating fruits and vegetables instead of drinking them..it's a better way to get fiber and vitamins..so limit the amount of juice to 1/2 cup per day for children 1-6 years and one cup per day for children 7-18 years of age. Try using 1/2 part water and 1/2 part juice. Spend less than two hours per day watching television and other screen media. Screen media includesCal[employer]oun Vision[employer] games, movies and computer use for entertainment. How can I help Yovanny do this? -Turn off the TV at dinner. Dinner is the best time to hang out with your kids and just talk, learnabout their day, and tell them about your day. Your kids have a lot to learn from you and dinner ollie great time to share. documented in this encounter Progress Notes * Keanu Brooks DO - 12/21/2021 1:00 PM EDT Luis Steve is a 61 y.o. male. Presents today for Chief Complaint Patient presents with ??? Annual Exam physical ??? Hypertension ??? Asthma ??? Erectile Dysfunction History of Present Illness Patient here for wellness exam; Has hypertension well controlled, has asthma and hx of gout; Doing well; Breathing doin gwell; Exercises regularly. Review of Systems Respiratory: Negative for shortness of breath. Cardiovascular: Negative for chest pain and palpitations. Gastrointestinal: Negative for abdominal pain. Patient Active Problem List Diagnosis ??? Asthma [...] to Visit Medication Sig Dispense Refill ??? Testosterone Cypionate (DEPOTESTOTERONE CYPIONATE) 200 MG/ML injection INJECT O.5MG EVERY WEEK 3 ??? [DISCONTINUED] albuterol sulfate HFA 108 (90 Base) MCG/ACT inhaler Inhale 2 puffs As Needed. every 4 to 6 hours 0 ??? [DISCONTINUED] allopurinol (ZYLOPRIM) 300 MG tablet Take 1 tablet by mouth Daily. PLEASE CALL THE OFFICE FOR AN APPT 30 tablet 0 ??? [DISCONTINUED] DULERA 200-5 MCG/ACT inhaler INHALE 2 PUFFS TWICE DAILY. RINSE MOUTH AFTER USE. 3 ??? [DISCONTINUED] fluticasone (FLONASE) 50 MCG/ACT nasal spray 2 sprays by Each Nare route Daily. 2 ??? [DISCONTINUED] lisinopril-hydrochlorothiazide (PRINZIDE,ZESTORETIC) 20-25 MG per tablet Take 1 tablet by mouth Daily. PLEASE CALL THE OFFICE FOR AN APPT 30 tablet 1 ??? [DISCONTINUED] SPIRIVA RESPIMAT 2.5 MCG/ACT aerosol solution inhaler INHALE 2 PUFFS ONCE DAILY 1 ??? [DISCONTINUED] tadalafil (CIALIS) 20 MG tablet TAKE 1 TABLET NEEDED FOR ERECTILE [id number] tablet 9 ??? [DISCONTINUED] traZODone (DESYREL) 150 MG tablet Take 1 tablet by mouth Every Night. 30 tablet 1 ??? [DISCONTINUED] sertraline (Zoloft) 25 MG tablet Take 1 tablet by mouth Daily. 90 tablet 3 ??? [DISCONTINUED] sertraline (ZOLOFT) 25 MG tablet TAKE 1 TABLET DAILY 90 tablet 0 ??? [DISCONTINUED] sertraline (ZOLOFT) 25 MG tablet TAKE 1 TABLET DAILY 90 tablet 0 No current facility-administered medications on file prior to visit. Objective Vitals: 12/21/21 1304 BP: 120/68 Pulse: 93 SpO2: 98% Weight: 90.3 kg (199 lb) Height: 172.7 cm (68 ) PainSc: 0-No pain Body mass index is 30.26 kg/m??. Physical Exam Vitals and nursing note [...] He is alert. Psychiatric: Behavior: Behavior normal. Assessment/Plan Diagnoses and all orders for this visit: 1. Wellness examination (Primary) Due wellness labs, ordered today cmp/lipid profile. Counseled on diet and exercise Ok try probiotics for gas counseled on -Follow up: 12 months and prn * Keanu Brooks DO - 12/21/2021 1:00 PM EDT Call results to patient. Cholesterol well controlled Kidney and liver function normal Uric acid is very high, still on allopurinol? If not, would restart. documented in this encounter Plan of Treatment Upcoming Encounters Date Type Department Care Team (Late st Contact Info) Description 01/17/2025 9:00 AM EDT Office Visit [facility] [address] [facility] [address] [place] [phone] Keanu Brooks DO [address] [facility] [address] [place] [address] documented as of this encounter Procedures Procedure Name Priority Date/Time Associated Diagnosis Comments URIC ACID Routine 12/21/2021 1:46 PM EDT Idiopathic chronic gout of multiple sites without tophus LIPID PANEL Routine 12/21/2021 1:46 PM EDT Dyslipidemia COMPREHENSIVE METABOLIC PANEL Routine 12/21/2021 1:46 PM EDT Primary hypertension documented in this encounter Results * (ABNORMAL) Uric Acid (12/21/2021 1:46 PM EDT) Uric Acid 8.5(H) 3.8 - 8.4 mg/dL [facility] Comment:Therapeutic target f or gout patients: <6.0 Blood 12/21/2021 1:46 PM EDT 12/21/2021 Narrative [facility] ([facility]) - 12/22/2021 5:07 AM EDT Performed at: ??01 - [facility] [address], [place], [place] ??[id number] Director Home: Willie Ireland PhD, Phone: ??[phone] Patient Fasting: ??N us Keanu Brooks DO LAB BLOOD ORDERABLES Final R esult [facility] ([facility]ATORY) [address] [place] [address], [facility] [address] [place] [address], * Lipid Panel (12/21/2021 1:46 PM EDT) Total Cholesterol 138 100 - 199 mg/dL [facility] Triglycerides 89 0 - 149 mg/dL [facility] HDL Cholesterol 48 >39 mg/dL [facility] VLDL Cholesterol Miguel 17 5 - 40 mg/dL [facility] LDL Chol Calc ([facility]) 73 0 - 99 mg/dL [facility] Blood 12/21/2021 1:46 PM EDT 12/21/2021 Narrative [facility] ([facility]) - 12/22/2021 5:07 AM EDT Performed at: ??01 - [facility] [address] [place] [id number] Director Home: Willie Ireland PhD, Phone: ??[phone] Patient Fasting: ??N Keanu Mirian Brooks LAB BLOOD ORDERABLES Final R esult [facility] ([facility]) [address] [place] [address], [facility] [address] [place] [address], * (ABNORMAL) Comprehensive Metabolic Panel (12/21/2021 1:46 PM EDT) Glucose 105(H) 65 - 99 mg/dL [facility] BUN 16 8 - 27 mg/dL [facility] Creatinine 1.20 0.76 - 1.27 mg/dL [facility] EGFR Result 68 >59 mL/min/1.7 3 [facility] BUN/Creatinine Ratio 13 10 - 24 [facility] Sodium 142 134 - 144 mmol/L [facility] Potassium 4.1 3.5 - 5.2 mmol/L [facility] Chloride 105 96 - 106 mmol/L [facility] Total CO2 22 20 - 29 mmol/L [facility] Calcium 9.7 8.6 - 10.2 mg/dL [facility] Total Protein 6.4 6.0 - 8.5 g/dL [facility] Albumin 4.0 3.8 - 4.8 g/dL [facility] Globulin 2.4 1.5 - 4.5 g/dL [facility] A/G Ratio 1.7 1.2 - 2.2 [facility] Total Bilirubin 0.3 0.0 - 1.2 mg/dL [facility] Alkaline Phosphatase 108 44 - 121 IU/L [facility] AST (SGOT) 28 0 - 40 IU/L [facility] ALT (SGPT) 27 0 - 44 IU/L [facility] Blood 12/21/2021 1:46 PM EDT 12/21/2021 Narrative [facility] (AMBULATORY) - 12/22/2021 5:07 AM EDT Performed at: ??01 - [facility] [address] ??[id number] Director Home: Willie Ireland PhD, Phone: ??[phone] Patient Fasting: ??N Keanu Brooks DO LAB BLOOD ORDERABLES Final R esult [facility] ([facility]) [address] [place] [address], [place] [phone] [facility] [address] [place] [address], documented in this encounter Visit Diagnoses Diagnosis Wellness examination- Primary Primary hypertension Unspecified essential hypertension Idiopathic chronic gout of multiple sites without tophus Essential hypertension Unspecified essential hypertension Generalized anxiety disorder Other male erectile dysfunction Other insomnia Dyslipidemia Other and unspecified hyperlipidemia Class 1 obesity due to excess calories with serious comorbidity and body mass index (BMI) of 30.0 to 30.9 in adult documented in this encounter Care Teams Clinical Services Manager Relationship Specialty Start Date End Date Keanu Brooks DO [address] [place] [address] PCP - General Family Medicine 12/11/18 documented as of this encounter
--- OUTSIDE RECORDS SUMMARY | 2024-10-10 22:50 | XMS_ITS | Clinical Summary ---
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 He has received steroid injection in the past without any relief. We have also tried activity modification and anti-inflammatories. He is not ready to proceed with knee replacement surgery. We did discuss getting insurance approval for gel injections. Hopefully the steroid does provide some relief in the interim. I will see him back after insurance approval for gel injections. - Last Documented On 03/13/2024 7:56AM ; [facility] Education and Decision Aids were provided during visit for: Discussed maintaining health y weight Last Documented On 2:57PM ; [facility] Assessments Includes: Assessments from this encounter Findings Bilateral knee arthritis with varus jkfs-so-sezj collapse, left worse than right. - Last Documented On 03/13/2024 7:56AM ; [facility] Instructions Includes: Instructions from this encounter Education and Decision Aids were provided during visit for: Discussed maintaining health y weight Last Documented On 4 2:57PM ; [facility] Medical Equipment - Implanted Devices Includes: Current Devices No Medical Equipment Recorded Medications Includes: Medications discussed during this encounter and other current Medications Current Medications (continue as prescribed) Tylenol Extra Strength 500 MG Oral Tablet 04/30/2022 Provider: Diagnosis: Last Documented On 2 8:31AM By Sandee Jauregui ATC ; [facility] Fluticasone Propionate 50 MCG/ACT Nasal Suspension 04/2021 Provider: Diagnosis: Last Documented On 9:03AM By Paty Eagle ; [facility] ProAir HFA 108 (90 Base) MCG/ACT Inhalation Aero melvina Solution 05/26/2021 Provider: Diagnosis: Last Documented On 9:03AM By Paty Eagle ; [facility] Lisinopril-hydroCHLOROthiazide 20-25 MG Oral Tablet Provider: Diagnosis: Last Documented On 1 9:03AM By [facility] Allopurinol 300 MG Oral Tablet 05/22/2021 Provider: Diagnosis: Last Documented On 1 9:03AM By Paty Eagle ; [facility] Trazadone 50 MG Tablet 11/12/2016 Provider: Diagnosis: Last Documented On 7 8:55AM By Renetta [facility] Past Medications on file Durolane 60 MG/3ML Intra-articular Prefilled Syringe 03/19/2024 - 04/18/2024 Provider: Donald Josue MD Diagnosis: Bilateral primar y osteoarthritis of knee Inject intra-articularly int o bilateral knees in office Last Documented On 4 11:37AM By Marjan Sandoval ; [facility] oxyCODONE-Acetaminophen 5-32 5 MG Oral Tablet 08/24/2023 - 08/31/2023 Provider: Donald Josue MD Diagnosis: i po q6 hrs prn Last Documented On 3 12:19PM By Donald Josue MD ; [facility] HYDROcodone-Acetaminophen 5- 325 MG Oral Tablet 08/16/2023 - 08/23/2023 Provider: Donald Josue MD Diagnosis: i po q 4 hrs prn pain AFTER surgery Last Documented On 3 1:29PM By Donald Josue MD ; [facility] Eliquis 2.5 MG Oral Tablet 03/12/2022 - 04/09/2022 Pro vider: Cholo Dotson MD Diagnosis: 1 tablet po twice a day x 4 weeks AFTER surgery Last Documented On 2 10:05AM By Paty Borges ; [facility] Medications Administered Includes: Administered Medications from this encounter No Administered Medications Recorded Vital Signs Includes: Vital Signs from this encounter Vital Name 03/09/2024 03:02P Height (in) 66 Weight (lb) 201 Body Mass Index 32.4 Body Surface Area 2 Last Documented: On 03/09/2024 3:02PM ; [facility] Results Includes: Results discussed during this encounter No Results Recorded For Specified Dates History of Present Illness Includes: History of Present Illness from this encounter AURELIA Steve is a 63 year old male. - Allergy list reviewed - Medication list reviewed Patient presents today requesting evaluation for bilateral knee pain that has been present for several years. Left knee worse than right. He was seen last January and received a steroid injection in the right knee. He states that it did not provide any relief. He is interested in gel injections. He has pain with walking and taking stairs. Pain is located diffusely about the knees. 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 Last Documented On 4 2:56PM ; [facility] Smoking status : Former smoker 2 Last Documented On 4 2:56PM ; [facility] Current nonsmoker 06/26/2021 Last Documented On 4 2:56PM ; [facility] Tobacco non-user 06/26/2021 Last Documented On 4 2:56PM ; [facility] Alcohol use: 2 drinks or less per day Last Documented On 4 2:56PM ; [facility] Has high school diploma 06/26/2021 Last Documented On 4 2:56PM ; [facility] Marital history single 06/26/2021 Last Documented On 4 2:56PM ; [facility] 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 Last Documented On 4 2:56PM ; [facility] Not using alcohol 11/12/2016 Last Documented On 4 2:56PM ; [facility] Preference for right-handedness 11/12/19 17 Last Documented On 4 2:56PM ; [facility] Procedures and Surgical History Includes: Procedures from this encounter Procedures Code Diagnosis Performing Provider Service Location Service Date Aspir/inj Major Joint/shoulder,h ip,knee (Bilateral Procedure) Bilateral primary osteoarthritis of knee Donald [facility] 03/09/2024 Last Documented On 4 9:02AM ; [facility] Triamcinolone Acetonide Inj Susp MDV 40MG 10 ML 10.00 unit [id number] Bilateral primary osteoarthritis of knee Donald Josue MD [facility] 03/09/2024 Last Documented On 4 9:02AM ; [facility] X-Ray Knee-4 or more View; Complete (Right) 06912 Unilateral primary osteoarthritis, right knee Donald Alfredo Josue MD [facility] 03/09/2024 Last Documented On 4 9:03AM ; [facility] X-Ray Knee-4 or more View; Complete (Left) 09303 Unilateral primary osteoarthritis, left knee Donald Alfredo Josue MD [facility] 03/09/2024 Last Documented On 4 9:03AM ; [facility] use of tobacco assessment performed 1000F Last Documented On 4 2:57PM ; [facility] a complete right knee x-rays 4 or more views was performed 07847 [id number] Last Documented On 4 2:54PM ; [facility] a complete left knee x-rays 4 or more views was performed [id number] Last Documented On 4 2:54PM ; [facility] Surgical History Last Updated History of rotator cuff repair left with biceps tenodesis 08/31/2023 Last Documented On 4 2:56PM ; [facility] History of total left hip replacement 08/2022 ([facility]) 04/30/2022 Last Documented On 4 2:56PM ; [facility] History of total right hip replacement ([facility]) 04/30/2022 Last Documented On 4 2:56PM ; [facility] History of back surgery 11/12/2016 Last Documented On 4 2:56PM ; [facility] History of neck surgery 11/12/2016 Last Documented On 4 2:56PM ; [facility] History of surgery of the left knee - Ar throscopy 11/12/2016 Last Documented On 4 2:56PM ; [facility] Medical History Includes: Medical History addressed during this encounter Description Last Updated History of gout 06/26/2021 Last Documented On 4 2:56PM ; [facility] Currently wearing eyeglasses 06/26/2021 Last Documented On 4 2:56PM ; [facility] Surgical history reviewed 11/12/2016 Last Documented On 4 2:56PM ; [facility] Family history reviewed 11/12/2016 Last Documented On 4 2:56PM ; [facility] History of asthma 11/12/2016 Last Documented On 4 2:56PM ; [facility] History of hypertension 11/12/2016 Last Documented On 4 2:56PM ; [facility] Past medical history reviewed 11/12/2016 Last Documented On 4 2:56PM ; [facility] Family History Includes: Family History addressed during this encounter Description Last Updated none 06/26/2021 Last Documented On 4 2:56PM ; [facility] Review of Systems Includes: Review of Systems from this encounter Systemic: No symptoms and not feeling tired. No fever, no chills, and [...] bleeding and no tendency for easy bruising. Musculoskeletal: Musculoskeletal symptoms. Neurological: No neurological symptoms. Psychological: No psychological symptoms. Skin: No skin symptoms. Mental Status Includes: Mental Status from this encounter No Mental Status Recorded Functional Status Includes: Functional Status from this encounter No Functional Status Recorded Physical Exam Includes: Physical Exam from this encounter Allergies Includes: Active Allergies No Known Allergies Encounters Encounter Provider Location Date Check-In Time Check-Out Time Diagnosis Estab Pt New Problem Donadl Josue MD [facility] 03/09/20 24 2:51PM 3:17PM Insurance Includes: Active Insurance Policies Plan Name Member ID Group # Subscriber Relationship Effect melba Dates 1 - [employer] Medicare [id number] Yovanny Steve Self 07/20/2023 - Unknown Clinical Notes Includes: Clinical Notes from this encounter * Progress note Date Encounter Last Documented by 03/09/2024 Estab Pt New Problem Last docume nted on 03/13/2024; 7:56 AM, Donald Josue MD; [facility] Chief Complaint New CC: Bilateral knee pain. History of Present Illness Yovanny Steve is a 63 year old male. - Allergy list reviewed - Medication list reviewed Patient presents today requesting evaluation for bilateral knee pain that has been present for several years. Left knee worse than right. He was seen last January and received a steroid injection in the right knee. He states that it did not provide any relief. He is interested in gel injections. He has pain with walking and taking stairs. Pain is located diffusely about the knees. User Defined 03/28 Current Medication - Allopurinol 300 MG Oral [...] ([facility]) - Total left hip replacement 03/30/2022 ([facility]) - Surgery of left knee - Arthroscopy Social History Tobacco use: Current nonsmoker. Smoking status: Former smoker. Alcohol: Not using alcohol. Alcohol use: 2 drinks or less per day. Drug Use: Never used drugs. Education: Has high school diploma. 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 Motor: Preference for right-handedness. Allergies - No Known Allergies Family History None Review Of Systems Systemic: No symptoms and not feeling tired. No fever, no chills, and [...] bleeding and no tendency for easy bruising. Musculoskeletal: Musculoskeletal symptoms. Neurological: No neurological symptoms. Psychological: No psychological symptoms. Skin: No skin symptoms. Physical Findings - Vitals taken 03/09/2024 03:02 pm Height 66 in Weight 201 lbs Body Mass Index 32.4 kg/m2 Body Surface Area 2 m2 Gait: Obvious genu varum deformity bilaterally. Bilateral [...] capillary refill distally. Calf supple. User Defined 2 A complete right knee x-rays 4 or more views was performed 68323 and a complete left knee x-rays 4 or more views was performed 40117. FINDINGS: AP, lateral, PA flexion, and Merchant views of the bilateral knees are performed. Weight-bearing bilateral knee radiographs demonstrate no acute fracture dislocation. Tricompartmental degenerative changes with medial lfgw-rb-ndaf collapse and slight genu varum deformity. Left knee worse than right. Marginal osteophytes noted of all 3 compartments. User Defined 1 Right Knee Steroid Injection After discussion of the risks, benefits, alternatives, and expected outcomes, informed consent was obtained from the patient. The correct site and side were confirmed. After sterile preparation of the right knee with alcohol swabs, Gebauer's Ethyl Chloride was sprayed for superficial anesthetic. 3cc of 2% plain lidocaine and 1 cc of Triamcinolone Acetonide (40mg/mL vial) were injected into the joint via the anterolateral portal approach. The patient tolerated the procedure well and without complications. No immediate adverse reactions were noted. Post-injection care was discussed. Left Knee Steroid Injection After discussion of the risks, benefits, alternatives, and expected outcomes, informed consent was obtained from the patient. The correct site and side were confirmed. After sterile preparation of the left knee with alcohol swabs, Gebauer's Ethyl Chloride was sprayed for superficial anesthetic. 3cc of 2% plain lidocaine and 1 cc of Triamcinolone Acetonide (40mg/mL vial) were injected into the joint via the anterolateral portal approach. The patient tolerated the procedure well and without complications. No immediate adverse reactions were noted. Post-injection care was discussed. Assessment Bilateral knee arthritis with varus ugvj-ek-bdkg collapse, left worse than right. Counseling/Education - Body mass index - Patient screened for future fall risk - Patient screened for future fall risk: documentation of no falls in past year - Encouragement to exercise - Discussed maintaining healthy weight Plan He has bilateral knee end-stage arthritis, left worse than right. He has received steroid injection in the past without any relief. We have also tried activity modification and anti-inflammatories. He is not ready to proceed with knee replacement surgery. We did discuss getting insurance approval for gel injections. Hopefully the steroid does provide some relief in the interim. I will see him back after insurance approval for gel injections. Practice Management Use of tobacco assessment performed. Health Reminders - Assess Alcohol Use satisfied 11/12/2016. - Assess BMI satisfied 03/09/2024. - Assess Tobacco Use satisfied 06/26/2021. Bottom of Document cc: SHAWNA GIRALDO DO (FAX: [phone]) LC/nan
--- OUTSIDE RECORDS SUMMARY | 2024-10-10 22:50 | XMS_ITS | Encounter Summary ---
[facility] Address [address] [place] [address] Care Team Providers Care Psychology Instructor Name Role Phone Keanu Brooks DO Primary Care Provider + [phone] Reason for Visit * Reason Comments Med Refill Encounter Details Date Type Department Care Team (Late st Contact Info) Description 10/26/2021 Refill [facility] [address] [employer] [address] [address] Keanu Brooks DO [address] [employer] [address] [address] Social History Tobacco Use Types [...] Description 01/17/2025 9:00 AM EDT Office Visit [facility] [address] [employer] [address] [address] Keanu Brooks DO [address] [employer] [address] [address] documented as of this encounter Visit Diagnoses Not on filedocumented in this encounter Care Teams Psychology Instructor Relationship Specialty Start Date End Date Keanu Brooks DO [address] [place] [address] PCP - General Family Medicine 12/11/18 documented as of this encounter
--- OUTSIDE RECORDS SUMMARY | 2024-10-10 22:50 | XMS_ITS | Encounter Summary ---
Author Organization [facility] Address [address] [place] [address] Care Team Providers Care Header Set Up Operator Name Role Phone Keanu Brooks DO Primary Care Provider + [phone] Reason for Visit * Reason Onset Date Comments Medical Clearance 03/15/2022 Encounter Details Date Type Department Care Team (Late st Contact Info) Description 03/15/2022 Telephone [facility] [address] [phone] Keanu Brooks DO [address] [phone] Medical Clearance Social History Tobacco Use Types Packs/Day Years [...] encounter Miscellaneous Notes * Telephone Encounter - Ange Pal MA - 03/15/2022 12:47 PM EDT PT INFORMED RECORDS FAXED * Telephone Encounter - Keanu Brooks DO - 03/15/2022 12:46 PM EDT Clearance order and note already done and I though faxed. I just printed to fax again. RRJ * Telephone Encounter - Le Song RegSched Rep - 03/15/2022 12:14 PM EDT Caller: MIRLANDE BAKER Best call back number: [phone] EXT [phone] What form or medical record are you requesting: LETTER FOR MEDICAL CLEARANCE How would you like to receive the form or medical records (pick-up, mail, fax): FAX If fax, what is the fax number: [phone] Timeframe paperwork needed: CEE Additional notes HAS SURGERY SCHEDULED FOR THE March NEED CLEARANCE LETTER PLEASE documented in this encounter Plan of Treatment Upcoming Encounters Date Type Department Care Team (Sridhar Contact Info) Description 01/17/2025 9:00 AM EDT Office Visit [facility] [address] [phone] Keanu Brooks DO [address] [address] documented as of this encounter Visit Diagnoses Not on filedocumented in this encounter Care Teams Header Set Up Operator Relationship Specialty Start Date End Date eKanu Brooks DO [address] [address] PCP - General Family Medicine 12/11/18 documented as of this encounter
--- OUTSIDE RECORDS SUMMARY | 2024-10-10 22:50 | XMS_ITS | Clinical Summary ---
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 Cholo Dotson MD Active Last Documented On 7 10:00AM ; [facility] 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, left femur 11/13/2016 Cholo Dotson MD Active Last Documented On 7 10:00AM ; [facility] Plan of Treatment No Plan of Treatment Recorded Assessments Includes: Assessments from this encounter No Assessments Recorded Medical Equipment - Implanted Devices Includes: Current Devices No Medical Equipment Recorded Medications Includes: Medications discussed during this encounter and other current Medications Current Medications (continue as prescribed) Tylenol Extra Strength 500 MG Oral Tablet 04/30/2022 Provider: Diagnosis: Last Documented On 2 8:31AM By Sandee Jauregui ATC ; [facility] Fluticasone Propionate 50 MCG/ACT Nasal Suspension 04/2021 Provider: Diagnosis: Last Documented On 1 9:03AM By Paty Eagle ; [facility] ProAir HFA 108 (90 Base) MCG/ACT Inhalation Aero melvina Solution 05/26/2021 Provider: Diagnosis: Last Documented On 1 9:03AM By Paty Eagle ; [facility] Lisinopril-hydroCHLOROthiazide 20-25 MG Oral Tablet Provider: Diagnosis: Last Documented On 1 9:03AM By Paty Eagle ; [facility] Allopurinol 300 MG Oral Tablet 05/22/2021 Provider: Diagnosis: Last Documented On 1 9:03AM By Paty Eagle ; [facility] Trazadone 50 MG Tablet 11/12/2016 Provider: Diagnosis: Last Documented On 7 8:55AM By Renetta Bronw ; [facility] Medications Administered Includes: Administered Medications from this encounter No Administered Medications Recorded Results Includes: Results discussed during this encounter No Results Recorded For Specified Dates History of Present Illness Includes: History of Present Illness from this encounter No History of Present Illness Recorded Social History No Social History Recorded - Smoking Status Unknown Medical History Includes: Medical History addressed during this encounter No Medical History Recorded Family History Includes: Family History addressed during this encounter No Family History Recorded Review of Systems Includes: Review of Systems from this encounter No Review of Systems Recorded Mental Status Includes: Mental Status from this encounter No Mental Status Recorded Functional Status Includes: Functional Status from this encounter No Functional Status Recorded Physical Exam Includes: Physical Exam from this encounter No Physical Exam Recorded Allergies Includes: Active Allergies No Known Allergies Insurance Includes: Active Insurance Policies Plan Name Member ID Group # Subscriber Relationship Effect melba Dates 1 - [employer] Medicare [id number] Yovanny Mary Ellen High Self 07/20/2023 - Unknown Clinical Notes Includes: Clinical Notes from this encounter No Clinical Notes Recorded
--- OUTSIDE RECORDS SUMMARY | 2024-10-10 22:50 | XMS_ITS | Encounter Summary ---
[facility] Address [address] [place] [address] Care Team Providers Care Maintenance Superintendent Name Role Phone Keanu Brooks DO Primary Care Provider + [phone] Reason for Visit * Reason Comments Med Refill Encounter Details Date Type Department Care Team (Late st Contact Info) Description 08/30/[address] [facility] [address] [address] Keanu Brooks DO [address] [employer] [address] [phone] Social History Tobacco Use Types Packs/Day Years [...] Description 01/17/2025 9:00 AM EDT Office Visit [facility] [address] [employer] [address] [address] Keanu Brooks DO [address] [employer] [address] documented as of this encounter Visit Diagnoses Not on filedocumented in this encounter Care Teams Maintenance Superintendent Relationship Specialty Start Date End Date Keanu Brooks DO [address] [place] [address] PCP - General Family Medicine 12/11/18 documented as of this encounter
--- OUTSIDE RECORDS SUMMARY | 2024-10-10 22:50 | XMS_ITS | Encounter Summary ---
Author Organization [facility] yste Address [address] [place] [address] Care Team Providers Care Aquaculture Worker Name Role Phone Keanu Brooks DO Primary Care Provider + [phone] Reason for Visit * Reason Onset Date Comments Med Refill 02/20/2021 Encounter Details Date Type Department Care Team (Late st Contact Info) Description 02/20/2021 Refill [facility] [address] [phone] Keanu Brooks DO [address] [facility] [address] [place], [place] [id number] Other insomnia Social History Tobacco Use Types [...] encounter Miscellaneous Notes * Telephone Encounter - Yesenia Yanez MA - 02/20/2021 10:42 AM EDT Ov 09/01/20 * Telephone Encounter - Preston Velasco RegSched Rep - 02/20/2021 10:18 AM EDT PATIENT NEEDS REFILL ON::traZODone (DESYREL) 150 MG tablet sertraline (ZOLOFT) 25 MG tablet ?? PATIENT CAN BE REACHED ON:??[phone] PHARMACY PREFERRED:[facility] - [address] - [phone] - [phone] FX?[phone] documented in this encounter Plan of Treatment Upcoming Encounters Date Type Department Care Team (Late st Contact Info) Description 01/17/2025 9:00 AM EDT Office Visit [facility] [address] [phone] Keanu Brooks DO [address] [address] documented as of this encounter Visit Diagnoses Diagnosis Other insomnia documented in this encounter Care Teams Aquaculture Worker Relationship Specialty Start Date End Date Keanu Brooks DO [address] [address] PCP - General Family Medicine 12/11/18 documented as of this encounter
--- OUTSIDE RECORDS SUMMARY | 2024-10-10 22:50 | XMS_ITS | Encounter Summary ---
Author Organization [facility] yste Address [address] [place] [address] Care Team Providers Care Breaker Up Name Role Phone Keanu Brooks DO Primary Care Provider + [phone] Reason for Visit * Reason Comments Med Refill Encounter Details Date Type Department Care Team (Late st Contact Info) Description 08/20/2021 Refill [facility] [address] [phone] Keanu Brooks DO [address] [employer] [address] [address] Essential hypertension Social History Tobacco [facility] [address] [phone] Keanu Brooks DO [address] [employer] [address] [address] documented as of this encounter Visit Diagnoses Diagnosis Essential hypertension Unspecified essential hypertension documented in this encounter Care Teams Breaker Up Relationship Specialty Start Date End Date Keanu Brooks DO [address] [place] [id number] PCP - General Family Medicine 12/11/18 documented as of this encounter
--- OUTSIDE RECORDS SUMMARY | 2024-10-10 22:50 | XMS_ITS | Encounter Summary ---
Author Organization [facility] yste Address [address] [place] [address] Care Team Providers Care Aeronautical Test Engineer Name Role Phone Keanu Brooks DO Primary Care Provider + [phone] Reason for Visit * Reason Comments Med Refill Encounter Details Date Type Department Care Team (Late st Contact Info) Description 08/20/2020 Refill [facility] [address] [place] [phone] Keanu Brooks DO [address] [employer] [address] [place], [place] [id number] Other male erectile dysfunction Social History Tobacco [...] Telephone Encounter - Maday Ferguson MA - 08/20/2020 7:44 AM EST 07/23/19 documented in this encounter Plan of Treatment Upcoming Encounters Date Type Department Care Team (Late st Contact Info) Description 01/17/2025 9:00 AM EDT Office Visit [facility] [address] [phone] Keanu Brooks DO [address] [address] documented as of this encounter Visit Diagnoses Diagnosis Other male erectile dysfunction documented in this encounter Care Teams Aeronautical Test Engineer Relationship Specialty Start Date End Date Keanu Brooks DO [address] [address] PCP - General Family Medicine 12/11/18 documented as of this encounter
--- OUTSIDE RECORDS SUMMARY | 2024-10-10 22:50 | XMS_ITS | Encounter Summary ---
Author Organization [facility] yste Address [address] [place] [address] Care Team Providers Care Camera Assembler Name Role Phone Keanu Brooks DO Primary Care Provider + [phone] Encounter Details Date Type Department Care Team (Late Contact Info) Description 12/02/2020 Bulk Ordering [facility] [place] Georgi Mathews MD [address] [place], [place] [id number] Immunization due Social History Tobacco Use Types Packs/Day Years [...] [facility] [address] [place] [address] Keanu Brooks DO [address] [place], [place] [phone] documented as of this encounter Visit Diagnoses Diagnosis Immunization due documented in this encounter Care Teams Camera Assembler Relationship Specialty Start Date End Date Keanu Brooks DO [address] [place] [address] PCP - General Family Medicine 12/11/18 documented as of this encounter
--- OUTSIDE RECORDS SUMMARY | 2024-10-10 22:50 | XMS_ITS | Encounter Summary ---
[facility] Address [address] [place] [address] Care Team Providers Care Research Nurse Name Role Phone Keanu Brooks DO Primary Care Provider + [phone] Reason for Visit * Reason Comments B/L feet swelling Shortness of Breath Chest Pain Depression Encounter Details Date Type Department Care Team (Late st Contact Info) Description 06/03/2023 9:30 AM EDT Office Visit [facility] [address] [phone] Zulay Braun APRN [address] [facility] [facility] [address] [place] [address] Leg swelling (Primary Dx); Chest pain with normal EKG; Primary hypertension; Class 1 obesity due to excess calories with serious comorbidity and body mass index (BMI) of 30.0 to 30.9 in adult; Tobacco use; At risk for fluid and electrolyte imbalance; Chest pain, unspecified type Social History Tobacco Use Types Packs/Day Years Used Date Smoking Tobacco: Some Days Cigars Smokeless Tobacco: Never Comments:rarely smokes cigar s Alcohol Use Standard Drinks/Week Comments Yes 0 (1 standard drink = 0.6 oz pur e alcohol) PHQ-2 Answer Date Recorded Retired PHQ-9: Brief Depression Severity Measure Score 0 01/10/2023 PHQ-2 Answer Date Recorded Retired PHQ-9: Brief Depression Severity Measure Score 0 01/10/2023 Sex and Gender Information Value Date Recorded Sex Assigned at Not on file Legal Sex Male 1:12 PM EDT Gender Identity Not on file Sexual Orientation Not on file documented as of this encounter Last Filed Vital Signs Vital Sign Reading Time Taken Comments Blood Pressure 142/80 06/03/2023 9:29 AM EDT Pulse 85 06/03/2023 9:29 AM EDT Temperature - - Respiratory Rate - - Oxygen Saturation 99% 06/03/2023 9:29 AM EDT Inhaled Oxygen Concentration - - Weight 93 kg (205 lb) 06/03/2023 9:29 AM EDT Height 172.7 cm (5' 8 ) 06/03/2023 9:29 AM EDT Body Mass Index 31.17 06/03/2023 9:29 AM EDT documented in this encounter Patient Instructions * Patient Instructions* Zulay Braun APRN - 06/03/2023 9:30 AM EDT Images from the original note were not included. Healthy Eating Following a healthy eating pattern may help you to achieve and maintain a healthy body weight, reduce the risk of chronic disease, and live a long and productive life. It is important to follow a healthy eating pattern at an appropriate calorie level for your body. Your nutritional needs should be met primarily through food by choosing a variety of nutrient-rich foods. What are tips for following this plan? Reading food labels Read labels and choose the following: Reduced or low sodium. Juices with 100% fruit juice. Foods with low saturated fats and high polyunsaturated and monounsaturated fats. Foods with whole grains, such as whole wheat, cracked wheat, brown rice, and wild rice. Whole grains that are fortified with folic acid. This is recommended for women who are or who want to become . Read labels and avoid the following: Foods with a lot of added sugars. These include foods that contain brown sugar, corn sweetener, corn syrup, dextrose, fructose, glucose, high-fructose corn syrup, honey, invert sugar, lactose, malt syrup, maltose, molasses, raw sugar, sucrose, trehalose, or turbinado sugar. Do not eat more than the following amounts of added sugar per day: 6 teaspoons (25 g) for women. 9 teaspoons (38 g) for men. Foods that contain processed or refined starches and grains. Refined grain products, such as white flour, degermed cornmeal, white bread, and white rice. Shopping Choose nutrient-rich snacks, such as vegetables, whole fruits, and nuts. Avoid high-calorie and high-sugar snacks, such as potato chips, fruit snacks, and candy. Use oil-based dressings and spreads on foods instead of solid fats such as butter, stick margarine,or cream cheese. Limit pre-made sauces, mixes, and instant products such as flavored rice, instant noodles, and ready-made pasta. Try more plant-protein sources, such as tofu, tempeh, black beans, edamame, lentils, nuts, and seeds. Explore eating plans such as the Mediterranean diet or vegetarian diet. Cooking Use oil to saut?? or stir-camacho foods instead of solid fats such as butter, stick margarine, or lard. Try baking, boiling, grilling, or broiling instead of frying. Remove the fatty part of meats before cooking. Steam vegetables in water or broth. Meal planning At meals, imagine dividing your plate into fourths: One-half of your plate is fruits and vegetables. One-fourth of your plate is whole grains. One-fourth of your plate is protein, especially lean meats, poultry, eggs, tofu, beans, or nuts. Include low-fat dairy as part of your daily diet. Lifestyle Choose healthy options in all settings, including home, work, school, restaurants, or stores. Prepare your food safely: Wash your hands after handling raw meats. Keep food preparation surfaces clean by regularly washing with hot, soapy water. Keep raw meats separate from fihyc-pp-xni foods, such as fruits and vegetables. geomatics professor, meat, poultry, and eggs to the recommended internal temperature. Store foods at safe temperatures. In general: Keep cold foods at 40??F (4.4??C) or below. Keep hot foods at 140??F (60??C) or above. Keep your freezer at 0??F (-17.8??C) or below. Foods are no longer safe to eat when they have been between the temperatures of 40??-140??F (4.4-60??C) for more than 2 hours. What foods should I eat? Fruits Aim to eat 2 cup-equivalents of fresh, canned (in natural juice), or frozen fruits each day. Examples of 1 cup-equivalent of fruit include 1 small apple, 8 large strawberries, 1 cup canned fruit, ?? cup dried fruit, or 1 cup 100% juice. Vegetables Aim to eat 2??-3 cup-equivalents of fresh and frozen vegetables each day, including different varieties and colors. Examples of 1 cup-equivalent of vegetables include 2 medium carrots, 2 cups raw, leafy greens, 1 cup chopped vegetable (raw or cooked), or 1 medium baked potato. Grains Aim to eat 6 ounce-equivalents of whole grains each day. Examples of 1 ounce- equivalent of grains include 1 slice of bread, 1 cup wtewi-za-xij cereal, 3 cups popcorn, or ?? cup cooked rice, pasta, orcereal. Meats and other proteins Aim to eat 5-6 ounce-equivalents of protein each day. Examples of 1 ounce- equivalent of protein include 1 egg, 1/2 cup nuts or seeds, or 1 tablespoon (16 g) peanut butter. A cut of meat or fish that is the size of a deck of cards is about 3-4 ounce-equivalents. Of the protein you eat each week, try to have at least 8 ounces come from seafood. This includes salmon, trout, marcelino, and anchovies. Dairy Aim to eat 3 cup-equivalents of fat-free or low-fat dairy each day. Examples of 1 cup-equivalent ofdairy include 1 cup (240 mL) milk, 8 ounces (250 g) yogurt, 1?? ounces (44 g) natural cheese, or 1 cup (240 mL) fortified soy milk. Fats and oils Aim for about 5 teaspoons (21 g) per day. Choose monounsaturated fats, such as canola and olive oils, avocados, peanut butter, and most nuts, or polyunsaturated fats, such as sunflower, corn, and soybean oils, walnuts, pine nuts, sesame seeds, sunflower seeds, and flaxseed. Beverages Aim for six 8-oz glasses of water per day. Limit coffee to three to five 8-oz cups per day. Limit caffeinated beverages that have added calories, such as soda and energy drinks. Limit alcohol intake to no more than 1 drink a day for non women and 2 drinks a day for men. One drink equals 12 oz of beer (355 mL), 5 oz of wine (148 mL), or 1?? oz of hard liquor (44 mL). Seasoning and other foods Avoid adding excess amounts of salt to your foods. Try flavoring foods with herbs and spices instead of salt. Avoid adding sugar to foods. Try using oil-based dressings, sauces, and spreads instead of solid fats. This information is based on general [place] nutrition guidelines. For more information, visit choosemyplate.gov. Exact amounts may vary based on your nutrition needs. Summary A healthy eating plan may help you to maintain a healthy weight, reduce the risk of chronic diseases, and stay active throughout your life. Plan your meals. Make sure you eat the right portions of a variety of nutrient- rich foods. Try baking, boiling, grilling, or broiling instead of frying. Choose healthy options in all settings, including home, work, school, restaurants, or stores. This information is not intended to replace advice given to you by your health care provider. Make sure you discuss any questions you have with your health care provider. Document Revised: 05/04/2022 Document Reviewed: 05/04/2022 [employer] Patient Education ?? 2022 [employer]. Exercising to Stay Healthy To become healthy and stay healthy, it is recommended that you do moderate- intensity and vigorous-intensity exercise. You can tell that you are exercising at a moderate intensity if your heart startsbeating faster and you start breathing faster but can still hold a conversation. You can tell that you are exercising at a vigorous intensity if you are breathing much harder and faster and cannot hold a conversation while exercising. How can exercise benefit me? Exercising regularly is important. It has many health benefits, such as: Improving overall fitness, flexibility, and endurance. Increasing bone density. Helping with weight control. Decreasing body fat. Increasing muscle strength and endurance. Reducing stress and tension, anxiety, depression, or anger. Improving overall health. What guidelines should I follow while exercising? Before you start a new exercise program, talk with your health care provider. Do not exercise so much that you hurt yourself, feel dizzy, or get very short of breath. Wear comfortable clothes and wear shoes with good support. Drink plenty of water while you exercise to prevent dehydration or heat stroke. Work out until your breathing and your heartbeat get faster (moderate intensity). How often should I exercise? Choose an activity that you enjoy, and set realistic goals. Your health care provider can help you make an activity plan that is individually designed and works best for you. Exercise regularly as told by your health care provider. This may include: Doing strength training two times a week, such as: Lifting weights. Using resistance bands. Push-ups. Sit-ups. Yoga. Doing a certain intensity of exercise for a given amount of time. Choose from these options: A total of 150 minutes of moderate-intensity exercise every week. A total of 75 minutes of vigorous-intensity exercise every week. A mix of moderate-intensity and vigorous-intensity exercise every week. Children, women, people who have not exercised regularly, people who are overweight, and older adults may need to talk with a health care provider about what activities are safe to perform. If you have a medical condition, be sure to talk with your health care provider before you start a new exercise program. What are some exercise ideas? Moderate-intensity exercise ideas include: Walking 1 mile (1.6 km) in about 15 minutes. Biking. Hiking. Golfing. Dancing. Water aerobics. Vigorous-intensity exercise ideas include: Walking 4.5 miles (7.2 km) or more in about 1 hour. Jogging or running 5 miles (8 km) in about 1 hour. Biking 10 miles (16.1 km) or more in about 1 hour. Lap swimming. Roller-skating or in-line skating. Cross-country skiing. Vigorous competitive sports, such as football, basketball, and soccer. Jumping rope. Aerobic dancing. What are some everyday activities that can help me get exercise? Yard work, such as: Pushing a chiller operator. Raking and bagging leaves. Washing your car. Pushing a stroller. Shoveling snow. Gardening. Washing windows or floors. How can I be more active in my day-to-day activities? Use stairs instead of an elevator. Take a walk during your lunch break. If you drive, park your car farther away from your work or school. If you take public transportation, get off one stop early and walk the rest of the way. Stand up or walk around during all of your indoor phone calls. Get up, stretch, and walk around every 30 minutes throughout the day. Enjoy exercise with a friend. Support to continue exercising will help you keep a regular routine of activity. Where to find more information You can find more information about exercising to stay healthy from: U.S. Department of Health and Human Services: www.hhs.gov Centers for Disease Control and Prevention (CDC): www.cdc.gov Summary Exercising regularly is important. It will improve your overall fitness, flexibility, and endurance. Regular exercise will also improve your overall health. It can help you control your weight, reducestress, and improve your bone density. Do not exercise so much that you hurt yourself, feel dizzy, or get very short of breath. Before you start a new exercise program, talk with your health care provider. This information is not intended to replace advice given to you by your health care provider. Make sure you discuss any questions you have with your health care provider. Document Revised: 01/01/2022 Document Reviewed: 01/01/2022 [employer] Patient Education ?? 2022 [employer] Inc[employer] Steps to Quit Smoking Smoking tobacco is the leading cause of preventable . It can affect almost every organ in the body. Smoking puts you and those around you at risk for developing many serious chronic diseases. Quitting smoking can be very challenging. Do not get discouraged if you are not successful the first time. Some people need to make many attempts to quit before they achieve long-term success. Do your best to stick to your quit plan, and talk with your health care provider if you have any questionsor concerns. How do I get ready to quit? When you decide to quit smoking, create a plan to help you succeed. Before you quit: Pick a date to quit. Set a date within the next 2 weeks to give you time to prepare. Write down the reasons why you are quitting. Keep this list in places where you will see it often. Tell your family, friends, and co-workers that you are quitting. Support from people you are close to can make quitting easier. Talk with your health care provider about your options for quitting smoking. Find out what treatment options are covered by your health insurance. Identify people, places, things, and activities that make you want to smoke (triggers). Avoid them. What first steps can I take to quit smoking? Throw away all cigarettes at home, at work, and in your car. Throw away smoking accessories, such as ashtrays and lighters. Clean your car. Make sure to empty the ashtray. Clean your home, including curtains and carpets. What strategies can I use to quit smoking? Talk with your health care provider about combining strategies, such as taking medicines while you are also receiving in-person counseling. Using these two strategies together makes you more likely to succeed in quitting than if you used either strategy on its own. If you are or , talk with your health care provider about finding counseling or other support strategies to quit smoking. Do not take medicine to help you quit smoking unless your health care provider tells you to. Quit right away Quit smoking completely, instead of gradually reducing how much you smoke over a period of time. Stopping smoking right away may be more successful than gradually quitting. Attend in-person counseling to help you build problem-solving skills. You are more likely to succeed in quitting if you attend counseling sessions regularly. Even short sessions of 10 minutes can be effective. Take medicine You may take medicines to help you quit smoking. Some medicines require a prescription. You can also purchase eibu-zjp-jtksdqy medicines. Medicines may have nicotine in them to replace the nicotine in cigarettes. Medicines may: Help to stop cravings. Help to relieve withdrawal symptoms. Your health care provider may recommend: Nicotine patches, gum, or lozenges. Nicotine inhalers or sprays. Non-nicotine medicine that you take by mouth. Find resources Find resources and support systems that can help you quit smoking and remain smoke-free after you quit. These resources are most helpful when you use them often. They include: Online chats with a counselor. Telephone quitlines. Printed self-help materials. Support groups or group counseling. Text messaging programs. Mobile phone apps or applications. Use apps that can help you stick to your quit plan by providing reminders, tips, and encouragement. Examples of free services include Quit Guide from the CDC and smokefree.gov What can I do to make it easier to quit? Reach out to your family and friends for support and encouragement. Call telephone quitlines, such as 2-906-KRGF-NOW, reach out to support groups, or work with a counselor for support. Ask people who smoke to avoid smoking around you. Avoid places that trigger you to smoke, such as bars, parties, or smoke-break areas at work. Spend time with people who do not smoke. Lessen the stress in your life. Stress can be a smoking trigger for some people. To lessen stress, try: Exercising regularly. Doing deep-breathing exercises. Doing yoga. Meditating. What benefits will I see if I quit smoking? Over time, you should start to see positive results, such as: Improved sense of smell and taste. Decreased coughing and sore throat. Slower heart rate. Lower blood pressure. Clearer and healthier skin. The ability to breathe more easily. Fewer sick days. Summary Quitting smoking can be very challenging. Do not get discouraged if you are not successful the first time. Some people need to make many attempts to quit before they achieve long-term success. When you decide to quit smoking, create a plan to help you succeed. Quit smoking right away, not slowly over a period of time. Find resources and support systems that can help you quit smoking and remain smoke-free after you quit. This information is not intended to replace advice given to you by your health care provider. Make sure you discuss any questions you have with your health care provider. Document Revised: 08/27/2022 Document Reviewed: 08/27/2022 [employer] Patient Education ?? 2022 [employer]. documented in this encounter Progress Notes * Zulay Braun APRN - 06/03/2023 9:30 AM EDT Luis Steve is a 62 y.o. male patient is here for B/L feet swelling, chest pain, SOA, and depression. 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 Since that time, he has felt verybored and depressed and started drinking approx 1 pint of cognac daily. Around day, he begannoticing an increase in bx leg swelling while he was standing at his grill. Swelling reduces with elevation. He is not currently wearing compression socks. He states that he does not get sloppy drunk but drinks several glasses at points during the day. This mellows him. He has not taken his lisinopril-HCTZ pill recently due to forgetting. HTN: Patient has not taken his lisinopril-HCTZ pill recently due to forgetting. He states his bp iselevated d/t not taking this morning, but he states he will take when he returns home. Hx CKD: Most recent labs showed normal kidney function. Producing adequate urine. Denies blood in urine, back pain, changes in urine color. Leg Swelling This is a new problem. The current episode started in the past 7 days. The problem occurs daily. The problem has been unchanged. Associated symptoms include chest pain (after he has been drinking fora while), congestion, coughing and fatigue. Pertinent negatives include no abdominal pain, anorexia, arthralgias, change in bowel habit, chills, diaphoresis, fever, headaches, joint swelling, myalgias, nausea, neck pain, numbness, rash, sore throat, swollen glands, urinary symptoms, vertigo, visualchange, vomiting or weakness. The symptoms are aggravated by drinking. He has tried lying down, position changes and rest for the symptoms. The treatment provided mild relief. The following portions of the patient's history were reviewed and updated as appropriate: allergies, current medications, past family history, past medical history, past social history, past surgicalhistory and problem list. @Review of Systems: Denies dizziness, fatigue, fever/chills, headache, blood in urine/stool, abd pain, seizures, leg pain, and SI. Positive for bx lower leg and foot edema. Objective Vitals: 06/03/23 0929 BP: 142/80 Pulse: 85 SpO2: 99% Body mass index is 31.17 kg/m??. Physical Exam Constitutional: General: He is not in acute distress. Appearance: Normal appearance. He is obese. He is not ill-appearing or toxic-appearing. HENT: Right Ear: External ear normal. Left Ear: External ear normal. Nose: Congestion present. No rhinorrhea. Mouth/Throat: Mouth: Mucous membranes are moist. Pharynx: Oropharynx is clear. Eyes: Conjunctiva/sclera: Conjunctivae normal. Cardiovascular: Rate and Rhythm: Normal rate and regular rhythm. Pulses: Normal pulses. Heart sounds: Normal heart sounds. Comments: EKG performed. Sinus rhythm, normal ECG. Vent rate 75 bpm, ND int 142 ms, QRS dur 90 ms, QT/Qtc 350/380 ms, P-R-T axes 69-67-51. No [address]/T abnormalities apparent. Prior EKGs unavailable for comparison. Pulmonary: Effort: Pulmonary effort is normal. No respiratory distress. Breath sounds: Normal breath sounds. Abdominal: General: Bowel sounds are normal. Palpations: Abdomen is soft. Tenderness: There is no abdominal tenderness. Musculoskeletal: Right lower le+ Pitting Edema present. Left lower le+ Pitting Edema present. Skin: General: Skin is warm and dry. Capillary Refill: Capillary refill takes less than 2 seconds. Neurological: General: No focal deficit present. Mental Status: He is alert and oriented to person, place, and time. Motor: No weakness. Psychiatric: Behavior: Behavior normal. Differentials: CHF, CKD, venous insufficiency, lymphedema, DVT Assessment & Plan Diagnoses and all orders for this visit: 1. Leg swelling (Primary) 2. Chest pain with normal EKG 3. Primary hypertension 4. Class 1 obesity due to excess calories with serious comorbidity and body mass index (BMI) of 30.0 to 30.9 in adult 5. Tobacco use 6. At risk for fluid and electrolyte imbalance 7. Chest pain, unspecified type Plan: EKG normal sinus rhythm. Decrease alcohol consumption Begin wearing compression stockings Elevate legs whenever possible Return in 1 month if needed for f/u on alcohol use Discussed Care Gaps, ordered referrals and encouraged vaccination updates. - Pt agrees with plan of care and denies further questions/concerns today - This document is intended for medical expert use only. Persons reading this document without medical staff guidance may result in misinterpretation and unintendedmorbidity Go to the ER for any possible life-threatening symptoms such as chest pain or shortness of air. Please allow 3-5 business days for recommendations based on new results I personally spent time with this patient, preparing for the visit, reviewing tests, obtaining and/or reviewing a separately obtained history, performing a medically appropriate examination and/or evaluation, counseling and educating the patient/family/caregiver, ordering medications, documenting information in the medical record and indepentently interpreting results. documented in this encounter Plan of Treatment Upcoming Encounters Date Type Department Care Team (Late st Contact Info) Description 01/17/2025 9:00 AM EDT Office Visit [facility] [address] [phone] Keanu Brooks DO [address] [id number] documented as of this encounter Visit Diagnoses Diagnosis Leg swelling- Primary Swelling of limb Chest pain, unspecified type Primary hypertension Unspecified essential hypertension Class 1 obesity due to excess calories with serious comorbidity and body mass index (BMI) of 30.0 to 30.9 in adult Tobacco use At risk for fluid and electrolyte imbalance documented in this encounter Care Teams Research Nurse Relationship Specialty Start Date End Date Keanu Brooks DO [address] [id number] PCP - General Family Medicine 12/11/18 documented as of this encounter
--- OUTSIDE RECORDS SUMMARY | 2024-10-10 22:50 | XMS_ITS | Encounter Summary ---
Author Organization [facility] yste Address [address] [place] [address] Care Team Providers Care Event Management Consultant Name Role Phone Keanu Brooks DO Primary Care Provider + [phone] Reason for Visit * Reason Onset Date Comments Med Refill 01/07/2023 Encounter Details Date Type Department Care Team (Late st Contact Info) Description 01/07/2023 Refill [facility] [address] [phone] Keanu Brooks DO [address] [phone] Other insomnia Social History Tobacco Use Types [...] encounter Miscellaneous Notes * Telephone Encounter - Leif Sanchez RegSched Rep - 01/07/2023 10:03 AM EDT Caller: Yovanny Steve Relationship: Self Best call back number: [phone] Requested Prescriptions: Requested Prescriptions Pending Prescriptions Disp Refills ??? traZODone (DESYREL) 150 MG tablet 30 tablet 0 Sig: Take 1 tablet by mouth Every Night. Pharmacy where request should be sent: [facility] - [address] [phone] [facility] [phone] FX Last office visit with prescribing clinician: 06/28/2022 Last telemedicine visit with prescribing clinician: 01/10/2023 Next office visit with prescribing clinician: 01/10/2023 Additional details provided by patient: PATIENT IS OUT OF THIS MEDICATION Does the patient have less than a 3 day supply: [x] Yes [] No Would you like a call back once the refill request has been completed: [x] Yes [] No If the office needs to give you a call back, can they leave a voicemail: [x] Yes [] No PLEASE ADVISE. Domingo Sousa 01/07/23 10:04 EDT documented in this encounter Plan of Treatment Upcoming Encounters Date Type Department Care Team (Late st Contact Info) Description 01/17/2025 9:00 AM EDT Office Visit [facility] [address] [phone] Keanu Brooks DO [address] [phone] documented as of this encounter Visit Diagnoses Diagnosis Other insomnia documented in this encounter Care Teams Event Management Consultant Relationship Specialty Start Date End Date Keanu Brooks DO [address] [phone] PCP - General Family Medicine 12/11/18 documented as of this encounter
--- OUTSIDE RECORDS SUMMARY | 2024-10-10 22:50 | XMS_ITS | Encounter Summary ---
[facility] Address [address] [place] [address] Care Team Providers Care Drag Out Worker Name Role Phone Keanu Giraldo DO Primary Care Provider + [phone] Reason for Visit * Reason Onset Date Comments Med Refill 07/11/2020 [facility] HAS NOT RECEIVED Encounter Details Date Type Department Care Team (Late st Contact Info) Description 07/11/2020 Refill [facility] [address] [place] [phone] Keanu Giraldo DO [address] [facility] [address] [place], [place] [phone] Social History Tobacco Use Types Packs/Day Years [...] encounter Miscellaneous Notes * Telephone Encounter - Keanu Giraldo DO - 07/11/2020 5:09 PM EDT [facility] * Telephone Encounter - Maday Ferguson MA - 07/11/2020 4:05 PM EDT Please resend to [facility]. * Telephone Encounter - Goldie Branch - 07/11/2020 3:29 [address]T MR. MALIN SAYS THAT HIS MEDICATION THAT HE ASKED FOR YESTERDAY TO BE PRESCRIBED FOR DEPRESSION BY DR. GIRALDO WAS TO BE SENT TO [facility] HE SAYS THEY NEVER RECEIVED REQUEST [id number] [place] [id number] AT [facility] - [phone] - [phone] FX?[phone] MR. MALIN WOULD LIKE A CALL WHEN THIS HAS BEEN COMPLETED. Yovanny Malin (Self) [phone] documented in this encounter Plan of Treatment Upcoming Encounters Date Type Department Care Team (Late st Contact Info) Description 01/17/2025 9:00 AM EDT Office Visit [facility] [address] [phone] Keanu Giraldo DO [address] [phone] documented as of this encounter Visit Diagnoses Not on filedocumented in this encounter Care Teams Drag Out Worker Relationship Specialty Start Date End Date Keanu Giraldo DO [address] [phone] PCP - General Family Medicine 12/11/18 documented as of this encounter
--- OUTSIDE RECORDS SUMMARY | 2024-10-10 22:50 | XMS_ITS | Encounter Summary ---
[facility] [address] [place] [address] Care Team Providers Care Cook Soup Name Role Phone Keanu Brooks DO Primary Care Provider + [phone] Encounter Details Date Type Department Care Team (Late st Contact Info) Description 07/29/2020 Refill [facility] [address] [phone] Keanu Brooks DO [address] [address] Social History Tobacco Use Types [...] [facility] [address] [phone] Keanu Brooks DO [address] [address] documented as of this encounter Visit Diagnoses Not on filedocumented in this encounter Care Teams Cook Soup Relationship Specialty Start Date End Date Keanu Brooks DO [address] [place] [address] PCP - General Family Medicine 12/11/18 documented as of this encounter
--- OUTSIDE RECORDS SUMMARY | 2024-10-10 22:50 | XMS_ITS ---
Author Organization [facility] Address [address] 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 Cholo Dotson MD Active Last Documented On 7 10:00AM ; [facility] 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, left femur 11/13/2016 Cholo Dotson MD Active Last Documented On 7 10:00AM ; [facility] Plan of Treatment Education and Decision Aids were provided during visit for: Discussed maintaining health y weight Last Documented On 4 2:57PM ; [facility] Discussed maintaining health y weight Last Documented On 4 9:25AM ; [facility] Discussed maintaining health y weight Last Documented On 4 9:13AM ; [facility] Discussed maintaining health y weight Last Documented On 4 9:03AM ; [facility] Discussed maintaining health y weight Last Documented On 3 10:37AM ; [facility] Discussed maintaining health y weight Last Documented On 3 11:54AM ; [facility] Discussed maintaining health y weight Last Documented On 3 2:00PM ; [facility] Discussed maintaining health y weight Last Documented On 2 10:23AM ; [facility] Assessments Includes: Assessments for all patient encounters No Assessments Recorded Instructions Includes: Instructions for all patient encounters Education and Decision Aids were provided during visit for: Discussed maintaining health y weight Last Documented On 4 2:57PM ; [facility] Discussed maintaining health y weight Last Documented On 4 9:25AM ; [facility] Discussed maintaining health y weight Last Documented On 4 9:13AM ; [facility] Discussed maintaining health y weight Last Documented On 4 9:03AM ; [facility] Discussed maintaining health y weight Last Documented On 3 10:37AM ; [facility] Discussed maintaining health y weight Last Documented On 3 11:54AM ; [facility] Discussed maintaining health y weight Last Documented On 3 2:00PM ; [facility] Discussed maintaining health y weight Last Documented On 2 10:23AM ; [facility] Medical Equipment - Implanted Devices Includes: Current and historical Devices No Medical Equipment Recorded Medications Includes: Current and historical Medications Current Medications (continue as prescribed) Tylenol Extra Strength 500 MG Oral Tablet 04/30/2022 Provider: Diagnosis: Last Documented On 2 8:31AM By Sandee Jauregui ATC ; [facility] Fluticasone Propionate 50 MCG/ACT Nasal Suspension 04/2021 Provider: Diagnosis: Last Documented On 1 9:03AM By Paty Eagle ; [facility] ProAir HFA 108 (90 Base) MCG/ACT Inhalation Aero melvina Solution 05/26/2021 Provider: Diagnosis: Last Documented On 1 9:03AM By Paty Eagle ; [facility] Lisinopril-hydroCHLOROthiazide 20-25 MG Oral Tablet Provider: Diagnosis: Last Documented On 1 9:03AM By Paty Eagle ; [facility] Allopurinol 300 MG Oral Tablet 05/22/2021 Provider: Diagnosis: Last Documented On 1 9:03AM By Paty Eagle ; [facility] Trazadone 50 MG Tablet 11/12/2016 Provider: Diagnosis: Last Documented On 7 8:55AM By Renetta Brown ; [facility] Past Medications on file Durolane 60 MG/3ML Intra-articular Prefilled Syringe 03/19/2024 - 04/18/2024 Provider: Donald Josue MD Diagnosis: Bilateral primar y osteoarthritis of knee Inject intra-articularly int o bilateral knees in office Last Documented On 4 11:37AM By Marjan Sandoval ; [facility] oxyCODONE-Acetaminophen 5-32 5 MG Oral Tablet 08/24/2023 - 08/31/2023 Provider: Donald Josue MD Diagnosis: i po q6 hrs prn Last Documented On 3 12:19PM By Donald Josue MD ; [facility] HYDROcodone-Acetaminophen 5- 325 MG Oral Tablet 08/16/2023 - 08/16/2023 Provider: Donald Josue MD Diagnosis: i po q 4 hrs prn pain AFTER surgery Last Documented On 3 1:28PM By Donald Josue MD ; [facility] HYDROcodone-Acetaminophen 5- 325 MG Oral Tablet 08/16/2023 - 08/23/2023 Provider: Donald Josue MD Diagnosis: i po q 4 hrs prn pain AFTER surgery Last Documented On 3 1:29PM By Donald Josue MD ; [facility] oxyCODONE-Acetaminophen 7.5- 325 MG Oral Tablet 04/26/2022 - 05/28/2022 Provider: Eduardo Paula MD Diagnosis: i po q6 hrs prn Last Documented On 2 10:28AM By Marilyn Arizmendi ; [facility] oxyCODONE-Acetaminophen 7.5- 325 MG Oral Tablet 04/14/2022 - 04/26/2022 Provider: Cholo Dotson MD Diagnosis: i po q6 hrs prn Last Documented On 2 1:29PM By Jovanny Paula ; [facility] oxyCODONE-Acetaminophen 7.5- 325 MG Oral Tablet 03/31/2022 - 04/30/2022 Provider: Cholo Dotson MD Diagnosis: Last Documented On 2 8:29AM By Sandee Jauregui ATC ; [facility] Eliquis 2.5 MG Oral Tablet 03/12/2022 - 04/09/2022 Pro vider: Cholo Dotson MD Diagnosis: 1 tablet po twice a day x 4 weeks AFTER surgery Last Documented On 2 10:05AM By Paty Borges ; [facility] Dulera 100-5 MCG/ACT Aerosol 11/12/2016 - 06/26/2021 P rovider: Diagnosis: Last Documented On 1 9:03AM By Paty Eagle ; [facility] Lisinopril 20 MG Tablet 11/12/2016 - 06/26/2021 Provid er: Diagnosis: Last Documented On 9:03AM By Paty Eagle ; [facility] Medications Administered Includes: Administered Medications in patient's chart No Administered Medications Recorded Vital Signs Includes: Vital Signs from 10/10/2023 through 10/10/2024 Vital Name 03/09/2024 03:02P 11/14/2023 09: 12A Height (in) 66 67 Weight (lb) 201 196 Body Mass Index 32.4 30.7 Body Surface Area 2 2 Last Documented: On 03/09/2024 3:02PM ; [facility] On 11/14/2023 9:13AM ; [facility] Results Includes: Results from 10/10/2023 through 10/10/2024 No Results Recorded For Specified Dates History of Present Illness History of Present Illness not supported for this document type No History of Present Illness Recorded Social History Description Last Updated Never used drugs 02/17/2024 Last Documented On 4 8:06AM ; [facility] 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 Last Documented On 4 8:06AM ; [facility] Smoking status : Former smoker 2 Last Documented On 2 6:01PM ; [facility] Current nonsmoker 06/26/2021 Last Documented On 1 8:04AM ; [facility] Tobacco non-user 06/26/2021 Last Documented On 1 8:04AM ; [facility] Alcohol use: 2 drinks or less per day Last Documented On 1 8:04AM ; [facility] Former smoker 06/26/2021 Last Documented On 1 8:04AM ; [facility] Has high school diploma 06/26/2021 Last Documented On 1 8:04AM ; [facility] Marital history single 06/26/2021 Last Documented On 1 8:04AM ; [facility] 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 Last Documented On 7 1:23PM ; [facility] Not using alcohol 11/12/2016 Last Documented On 7 1:23PM ; [facility] Preference for right-handedness 11/12/19 17 Last Documented On 7 1:23PM ; [facility] Procedures and Surgical History Includes: Procedures from 10/10/2023 through 10/10/2024 Procedures Code Diagnosis Performing Provider Service Location Service Date Aspir/inj Major Joint/shoulder,h ip,knee (Bilateral Procedure) Bilateral primary osteoarthritis of knee Donald Alfredo Josue MD [facility] 05/18/2024 Last Documented On 4 10:43PM ; [facility] DUROLANE- hyaluronan or deriv per 1 mg (Right, Left) [id number] Bilateral primary osteoarthritis of knee Donald Alfredo Josue MD [facility] 05/18/2024 Last Documented On 4 9:09AM ; [facility] Triamcinolone Acetonide Inj Susp MDV 40MG 10 ML 10.00 unit [id number] Bilateral primary osteoarthritis of knee Donald Alfredo Josue MD [facility] 03/09/2024 Last Documented On 4 9:02AM ; [facility] Aspir/inj Major Joint/shoulder,hip,knee (Bilateral Procedure) Bilateral primary osteoarthritis of knee Donald Alfredo [facility] 03/09/2024 Last Documented On 4 9:02AM ; [facility] X-Ray Knee-4 or more View; Complete (Right) [id number] Unilateral primary osteoarthritis, right knee Donald Alfredo Josue MD [facility] 03/09/2024 Last Documented On 4 9:03AM ; [facility] X-Ray Knee-4 or more View; Complete (Left) [id number] Unilateral primary osteoarthritis, left knee Donald Alfredo [facility] 03/09/2024 Last Documented On 4 9:03AM ; [facility] Surgical History Last Updated History of rotator cuff repair left with biceps tenodesis 08/31/2023 Last Documented On 3 2:25PM ; [facility] History of total left hip replacement 08/2022 ([facility]) 04/30/2022 Last Documented On 2 8:35AM ; [facility] History of total right hip replacement ([facility]) 04/30/2022 Last Documented On 2 8:35AM ; [facility] History of back surgery 11/12/2016 Last Documented On 7 1:23PM ; [facility] History of neck surgery 11/12/2016 Last Documented On 7 1:23PM ; [facility] History of surgery of the left knee - Ar throscopy 11/12/2016 Last Documented On 7 1:23PM ; [facility] Medical History Includes: Medical History in patient's chart Description Last Updated History of gout 06/26/2021 Last Documented On 1 8:04AM ; [facility] Currently wearing eyeglasses 06/26/2021 Last Documented On 1 8:04AM ; [facility] Surgical history reviewed 11/12/2016 Last Documented On 7 1:23PM ; [facility] Family history reviewed 11/12/2016 Last Documented On 7 1:23PM ; [facility] History of asthma 11/12/2016 Last Documented On 7 1:23PM ; [facility] History of hypertension 11/12/2016 Last Documented On 7 1:23PM ; [facility] Past medical history reviewed 11/12/2016 Last Documented On 7 1:23PM ; [facility] Family History Includes: Family History in patient's chart Description Last Updated none 06/26/2021 Last Documented On 8:04AM ; [facility] Review of Systems Review of Systems not supported for this document type No Review of Systems Recorded Mental Status No Mental Status Recorded Functional Status No Functional Status Recorded Physical Exam Physical Exam not supported for this document type No Physical Exam Recorded Allergies Includes: Active, inactive, and resolved Allergies No Known Allergies Encounters Includes: Encounters from 10/10/2023 through 10/10/2024 Encounter Provider Location Date Check-In Time Check-Out Time Diagnosis Injection Follow Up Visit Donald Josue MD [facility] 05/18/20 24 1:49PM 2:27PM Medication Donald Josue MD 03/19/20 24 03/09/2024 11:36AM 03/09/2024 11:59PM Estab Pt New Problem Donald Josue MD [facility] 03/09/20 24 2:51PM 3:17PM Standard Follow Up Visit Donald Josue MD [facility] 02/17/20 24 9:14AM 9:48AM Standard Follow Up Visit Donald Josue MD [facility] 11/14/19 24 8:40AM 9:36AM Insurance Includes: Active Insurance Policies Plan Name Member ID Group # Subscriber Relationship Effect melba Dates 1 - [employer] [id number] Yovanny Steve Self 07/20/2023 - Unknown Clinical Notes Includes: Signed Clinical Notes starting from 08/30/2022 * Progress note Date Encounter Last Documented by 05/18/2024 Injection Follow Up Visit Last d ocumented on 05/22/2024; 4:22 PM, Donald Josue MD; [facility] Chief Complaint Bilateral Knee Durolane History of [...] today for bilateral knee Durolane. User Defined 11/26 Current Medication - Allopurinol 300 MG [...] ([facility]) - [facility] - Surgery of left knee - Arthroscopy Social History Tobacco use: Current nonsmoker. Smoking status: Former smoker. Alcohol: Not using alcohol. Drug Use: Never used drugs. Education: Has high school diploma. 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 Motor: Preference for [...] tolerated the procedure well, Durolane Lot # [id number], Durolane Expiration Date 2026-11-16, and Durolane Injection [...] discussed. Assessment Bilateral knee arthritis with varus lkzo-xo-qfwm collapse, left worse than right. Plan He [...] Use satisfied 06/26/2021. Bottom of Document LC/deysi * Progress note Date Encounter Last Documented by 03/09/2024 Estab Pt New Problem Last docume nted on 03/13/2024; 7:56 AM, Donald Josue MD; [facility] Chief Complaint New CC: Bilateral [...] located diffusely about the knees. User Defined 8 03/28 Current Medication - Allopurinol 300 MG [...] Education: Has high school diploma. 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 Motor: Preference for [...] x-rays 4 or more views was performed [id number] and a complete left knee x-rays 4 or more views was performed [id number]. FINDINGS: AP, lateral, PA flexion, and Merchant views of the bilateral knees are performed. Weight-bearing bilateral knee radiographs demonstrate no acute fracture dislocation. Tricompartmental degenerative changes with medial ftef-wa-qbim collapse and slight genu varum deformity. Left [...] discussed. Assessment Bilateral knee arthritis with varus nrvz-jq-dcei collapse, left worse than right. Counseling/Education - [...] satisfied 06/26/2021. Bottom of Document cc: SHAWNA BROOKS DO (FAX: [phone]) LC/nan * Progress note Date Encounter Last Documented by 02/17/2024 Standard Follow Up Visit Last do cumented on 02/28/2024; 8:06 AM, Donald Josue MD; [facility] Chief Complaint Left shoulder pain. History of Present Illness Patient presents today almost 6 months status post left shoulder rotator cuff repair with biceps tenodesis on 08/23/2023. He is no longer doing formal physical therapy but continues with at home exercises. He denies any swelling, bruising, redness, numbness, and tingling. He states he has a great range of motion. He is very happy with his surgery and recovery with no concerns today. User Defined 8 0/ Current Medication - Allopurinol 300 MG Oral [...] Education: Has high school diploma. 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 Motor: Preference for [...] symptoms. Skin: No skin symptoms. Physical Findings General Appearance: Appears stated age and in no acute distress. Orientation: Alert and oriented ? 3 . Mood and Affect: Appropriate. Left shoulder: Well-healed surgical incisions. No signs of infection. Nontender palpation. Active range of motion demonstrates approximately 165- forward flexion, 160- of abduction. 5/5 strength resisted internal and external rotation, abduction. Negative Neer, negative Tania, negative Speed's test. Normal motion of the elbow and digits. Sensation grossly intact to light touch with brisk capillary refill distally. Assessment 6 months status post left shoulder rotator cuff repair with Regeneten patch, biceps tenodesis on 08/23/2023. Counseling/Education - Body mass index - Encouragement to exercise - Discussed maintaining healthy weight Plan He continues to progress well. He is advancing activities without significant setbacks. May continue activities as tolerated without restriction. Slow progressive return encouraged. Follow up as needed. Of note, he is interested in a followup for his bilateral knees. He has been receiving gel injections by an outside provider. I am happy to see him back at his convenience. Practice Management Use of tobacco assessment performed. Health Reminders - Assess Alcohol Use satisfied 11/12/2016. - Assess Tobacco Use satisfied 06/26/2021. Bottom of Document LC/gst * Progress note Date Encounter Last Documented by 11/14/2023 Standard Follow Up Visit Last do cumented on 11/15/2023; 7:56 AM, Donald Josue MD; [facility] Chief Complaint Left shoulder followup History of Present Illness Yovanny Steve is a 63 year old male. - Allergy list reviewed - Medication list reviewed Patient is here12 weeks post left shoulder rotator cuff repair with biceps tenodesis on 08/23/2023. He reports the shoulder is feeling better. He has been doing physical therapy on his own. He has been doing stretches. He reports some stiffness. User Defined 8 0/10 Current Medication - Allopurinol 300 MG Oral [...] knee - Arthroscopy Social History Tobacco use: Former smoker. Current nonsmoker. Smoking status: Former smoker. Alcohol: Not using alcohol. Alcohol use: 2 drinks or less per day. Education: Has high school diploma. 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 Motor: Preference for [...] skin symptoms. Physical Findings - Vitals taken 11/14/2023 09:12 am Height 67 in Weight 196 lbs Body Mass Index 30.7 kg/m2 Body Surface Area 2 m2 General Appearance: Appears stated age and in no acute distress. Orientation: Alert and oriented ? 3 . Mood and Affect: Appropriate. Left shoulder: Well-healed surgical incisions. No signs of infection. Nontender palpation. Active range of motion demonstrates approximately 155- forward flexion, 150- of abduction. 5/5 strength resisted internal and external rotation, abduction. Negative Neer, negative Tania, negative speed's test. Normal motion of the elbow and digits. Sensation grossly intact to light touch with brisk capillary refill distally. Assessment 3 months status post left shoulder rotator cuff repair with Regeneten patch, biceps tenodesis on 08/23/2023. Counseling/Education - Body mass index - Encouragement to exercise - Discussed maintaining healthy weight Plan He continues to progress well. May begin progressive strengthening per protocol. Continue passive stretching for unrestricted range of motion. Slowly advance activities. Follow up in 2-3 months. Practice Management Use of tobacco assessment performed. Bottom of Document LC/adeel
--- OUTSIDE RECORDS SUMMARY | 2024-10-10 22:50 | XMS_ITS | Encounter Summary ---
Author Organization [facility] Address [address] [place] [address] Care Team Providers Care Cook Candy Name Role Phone Keanu Brooks DO Primary Care Provider + [phone] Reason for Visit * Reason Comments Med Refill Encounter Details Date Type Department Care Team (Late st Contact Info) Description 12/12/2020 Refill [facility] [address] [address] Keanu Brooks DO [address] [place], [place] [id number] Essential hypertension Social History Tobacco Use Types [...] Telephone Encounter - Maday Ferguson MA - 12/12/2020 7:34 AM EDT 09/01/20 documented in this encounter Plan of Treatment Upcoming Encounters Date Type Department Care Team (Late st Contact Info) Description 01/17/2025 9:00 AM EDT Office Visit [facility] [address] [phone] Keanu Brooks DO [address] [address] documented as of this encounter Visit Diagnoses Diagnosis Essential hypertension Unspecified essential hypertension documented in this encounter Care Teams Cook Candy Relationship Specialty Start Date End Date Keanu Brooks DO [address] [address] PCP - General Family Medicine 12/11/18 documented as of this encounter
--- OUTSIDE RECORDS SUMMARY | 2024-10-10 22:50 | XMS_ITS | Encounter Summary ---
[facility] Address [address] [place] [address] Care Team Providers Care Alternative Dispute Resolution Mediator Name Role Phone Keanu Brooks DO Primary Care Provider + [phone] Reason for Visit * Reason Comments Med Refill Encounter Details Date Type Department Care Team (Late st Contact Info) Description 12/15/2019 Refill [facility] [address] [address] Keanu Brooks DO [address] [address] Social History Tobacco Use Types [...] 01/17/2025 9:00 AM EDT Office Visit [facility] [address] [address] Keanu Brooks DO [address] [address] documented as of this encounter Visit Diagnoses Not on filedocumented in this encounter Care Teams Alternative Dispute Resolution Mediator Relationship Specialty Start Date End Date Keanu Brooks DO [address] [place] [address] PCP - General Family Medicine 12/11/18 documented as of this encounter
--- OUTSIDE RECORDS SUMMARY | 2024-10-10 22:50 | XMS_ITS | Encounter Summary ---
Author Organization [facility] yste Address [address] [place] [address] Care Team Providers Care Type Disk Quality Control Supervisor Name Role Phone Keanu Brooks DO Primary Care Provider + [phone] Reason for Visit * Reason Onset Date Comments Med Refill 09/07/2024 Encounter Details Date Type Department Care Team (Late st Contact Info) Description 09/07/[address] [facility] [address] [employer] [address] [phone] Keanu Brooks DO [address] [employer] [facility] [address] [place], [place] [id number] Eczema, unspecified type Social History Tobacco Use Types [...] encounter Miscellaneous Notes * Telephone Encounter - Ptay Mackey RegSched Rep - 09/07/2024 10:29 AM EST Caller: Yovanny Steve Relationship: Self Best call back number: Requested Prescriptions: Requested Prescriptions Pending Prescriptions Disp Refills triamcinolone (KENALOG) 0.1 % cream 80 g 3 Sig: Apply 1 Application topically to the appropriate area as directed 2 (Two) Times a Day. Pharmacy where request should be sent: [id number] [facility] - [phone] - [phone] FX Last office visit with prescribing clinician: 01/16/2024 Last telemedicine visit with prescribing clinician: Visit date not found Next office visit with prescribing clinician: 01/17/2025 Additional details provided by patient: WANTS A RECURRING 30 DAY SUPPLY Does the patient have less than a 3 day supply: [x] Yes [] No Would you like a call back once the refill request has been completed: [] Yes [x] No If the office needs to give you a call back, can they leave a voicemail: [] Yes [x] No Domingo Urena Rep 09/07/24 10:31 EST DELETE AFTER READING TO PATIENT: ???Thank you for sharing this information with me. I will send a message to the clinical team. Please allow 48 hours for the clinical staff to follow up on this request.?? documented in this encounter Plan of Treatment Upcoming Encounters Date Type Department Care Team (Late st Contact Info) Description 01/17/2025 9:00 AM EDT Office Visit [facility] [address] [phone] Keanu Brooks DO [address] [phone] documented as of this encounter Visit Diagnoses Diagnosis Eczema, unspecified type documented in this encounter Care Teams Type Disk Quality Control Supervisor Relationship Specialty Start Date End Date Keanu Brooks DO [address] [address] PCP - General Family Medicine 12/11/18 documented as of this encounter
--- OUTSIDE RECORDS SUMMARY | 2024-10-10 22:50 | XMS_ITS | Clinical Summary ---
[facility] Address [address] [place] [address] Care Team Providers Care Compacting Machine Operator/Tender Name Role Phone Keanu Brooks DO Primary Care Provider + [phone] Allergies No known active allergies Medications albuterol sulfate HFA 108 (90 Base) MCG/ACT inhaler Inhale 2 puffs Every 4 (Four) Hours As Needed for Wheezing. 68 g 3 3 Active fluticasone (FLONASE) 50 MCG/ACT nasal spray 2 sprays by Each Nare route Daily. 48 g 3 3 Active Spiriva Respimat 2.5 MCG/ACT aerosol solution inhaler Inhale 2 puffs Daily. 1 g 3 Active tadalafil (CIALIS) 20 MG tabletIndication s:Other male erectile dysfunction Take 1 tablet by mouth Daily As Needed for Erectile Dysfunction. 90 tablet 3 3 Active Testosterone Cypionate (DEPOTESTOTERONE CYPIONATE) 200 MG/ML injectionIndicat ions:Hypogonadis m in male Inject 0.5 mL into the appropriate muscle as directed by prescriber 1 (One) Time Per Week. 2 mL 3 3 Active budesonide-formo terol (Symbicort) 160-4.5 MCG/ACT inhaler Inhale 2 puffs 2 (Two) Times a Day. 18 each 3 4 Active Wixela Inhub 500-50 MCG/ACT DISKUS Inhale 1 puff 2 (Two) Times a Day. 4 Active allopurinol (ZYLOPRIM) 300 MG tabletIndication s:Idiopathic chronic gout of multiple sites without tophus,Primary hypertension Take 1 tablet by mouth Daily. 90 tablet 3 4 Active lisinopril-hydro chlorothiazide (PRINZIDE,ZESTOR ETIC) 20-25 MG per tabletIndication s:Essential hypertension Take 1 tablet by mouth Daily. 90 tablet 3 4 Active traZODone (DESYREL) 150 MG tabletIndication s:Other insomnia Take 1 tablet by mouth Every Night. 90 tablet 3 4 Active hydrOXYzine (ATARAX) 10 MG tabletIndication s:MAITE (generalized anxiety disorder) TAKE 1 TABLET BY MOUTH 3 (THREE) TIMES A DAY NEEDED FOR ANXIETY (SLEEP). 270 tablet 2 4 Active triamcinolone (KENALOG) 0.1 % creamIndications :Eczema, unspecified type Apply 1 Application topically to the appropriate area as directed 2 (Two) Times a Day. 80 g 1 4 Active Active Problems Problem Noted Date Diagnosed Date Strain of musc/tend the rotator cuff of left evette friedman 06/30/2023 Stage 3a chronic kidney disease 03/31/2022 Primary osteoarthritis of hips, bilateral 2021 Status post total replacement of both hips 03/30 Sleep apnea 01/14/2020 Asthma 01/08/2019 ED (erectile dysfunction) 01/08/2019 Hypertension 01/08/2019 Encounters Date Type Department Care Team Description 09/07/2024 Refill [facility] [address] [facility] [address] [place] [address] Keanu Brooks DO Eczema, unspecified type from Last 3 Months Immunizations Name Administration Dates Next Due COVID-19 (PFIZER) Purple Cap Monovalent 08/23/20 21 Flu Vaccine Intradermal Quad 18-64YR 08/23/2021 Flu Vaccine Split Quad 06/10/2022,06/28/2017 Fluzone (or Fluarix & Flulaval for VFC) >6mos ,07/03/2018 Fluzone High-Dose 65+yrs 08/17/2023 Pneumococcal Conjugate 13-Valent (PCV13) 019 Pneumococcal Polysaccharide (PPSV23) 07/03/2018, 06/28/2017 flucelvax quad pfs =>4 YRS 07/23/2019 Family History * Patient is adopted Medical History Relation Name Comments Prostate cancer Father adopted No Known Problems Mother of pn eushasta; adopted Relation Name Status Comments Father Mother Social History Tobacco Use Types Packs/Day Years Used Date Smoking Tobacco: Some Days Cigars Smokeless Tobacco: Never Tobacco Cessation:Ready to Q uit: Not Asked; Counseling Given: Not Answered Comments:rarely smokes cigars Alcohol Use Standard Drinks/Week [...] on file Sexual Orientation Not on file Last Filed Vital Signs Vital Sign Reading Time Taken Comments Blood Pressure 108/76 01/16/2024 8:44 AM EDT Pulse 98 01/16/2024 8:44 AM EDT Temperature 36.4 ??C (97.5 ??F) 03/12/2022 11:10 AM E DT Respiratory Rate 20 03/12/2022 11:10 AM EDT Oxygen Saturation 96% 01/16/2024 8:44 AM EDT Inhaled Oxygen Concentration - - Weight 89.8 kg (198 lb) 01/16/2024 8:44 AM EDT Height 172.7 cm (5' 8 ) 01/16/2024 8:44 AM EDT Body Mass Index 30.11 01/16/2024 8:44 AM EDT Plan of Treatment Upcoming Encounters Date Type Department Care Team (Late st Contact Info) Description 01/17/2025 9:00 AM EDT Office Visit [facility] [address] [place] [phone] Keanu Brooks DO [address] [place] [address] Health Maintenance Due Date Last Done Comments COLOGUARD 1960 COLON CANCER SCREENING [address] COLONOGRAPHY 1960 FECAL OCCULT BLOOD TEST 1960 FIT Testing (1 year) 1960 TDAP/TD VACCINES (1 - Tdap) 1977 AAA SCREEN ONCE 2023 Pneumococcal Vaccine 65+ (3 of 3 - PPSV23 or PCV20) 2023 07/23/2019, 07/03/2018, 06/28/2017 INFLUENZA VACCINE 03/19/2024 08/17/2023, , 08/23/2021, Additional history exists COVID-19 Vaccine ( season) 2024 08/17/2023, 06/10/2022, 08/23/2021, Additional history exists BMI FOLLOWUP 06/03/2024 06/03/2023, 12/21/2021 ANNUAL WELLNESS VISIT 01/15/2025 01/16/2024, 024 COLONOSCOPY 02/04/2027 02/04/2017, 01/08/2017 COLORECTAL CANCER SCREENING 02/04/2027 HEPATITIS C SCREENING Addressed 01/08/2019 (Decline d) Overridden with the intention of not completing the topic Procedures Procedure Name Priority Date/Time Associated Diagnosis Comments SCANNED - COLONOSCOPY 02/04/2017 from Last 3 Months or Most Recently Relevant to Health Maintenance Results * SCANNED - COLONOSCOPY (02/04/2017) [facility] [place] CHART REVIEW TABS Final Re sult from Last 3 Months or Most Recently Relevant to Health Maintenance Insurance [employer] MED ADV HMO Care Teams Compacting Machine Operator/Tender Relationship Specialty Start Date End Date Keanu Brooks DO [address] [address] PCP - General Family Medicine 12/11/18
--- OUTSIDE RECORDS SUMMARY | 2024-10-10 22:50 | XMS_ITS | Encounter Summary ---
[facility] [address] [place] [address] Care Team Providers Care Double Corner Cutter Name Role Phone Keanu Brooks DO Primary Care Provider + [phone] Reason for Visit * Reason Comments Med Refill Encounter Details Date Type Department Care Team (Late st Contact Info) Description 05/23/2023 Refill [facility] [address] [employer] [address] [phone] Keanu Brooks DO [address] [address] Social History Tobacco Use Types [...] [facility] [address] [employer] [address] [phone] Keanu Brooks DO [address] [address] documented as of this encounter Visit Diagnoses Not on filedocumented in this encounter Care Teams Double Corner Cutter Relationship Specialty Start Date End Date Keanu Brooks DO [address] [place] [address] PCP - General Family Medicine 12/11/18 documented as of this encounter
--- OUTSIDE RECORDS SUMMARY | 2024-10-10 22:50 | XMS_ITS | Encounter Summary ---
Author Organization [facility] yste Address [address] [place] [address] Care Team Providers Care Force Dispatcher Name Role Phone Keanu Brooks DO Primary Care Provider + [phone] Reason for Visit * Reason Onset Date Comments Med Refill 01/17/2023 Encounter Details Date Type Department Care Team (Late st Contact Info) Description 01/17/2023 Telephone [facility] [address] [employer] [address] [phone] Keanu Brooks DO [address] [employer] [address] [phone] Med Refill Social History Tobacco Use Types Packs/Day Years [...] Telephone Encounter - Maday Ferguson MA - 01/17/2023 10:54 AM EDT Meds sent * Telephone Encounter - Ebony Seay RegSched Rep - 01/17/2023 10:11 AM EDT Caller: Yovanny Steve Relationship: Self Best call back number: [phone] Requested Prescriptions: ALL MEDICATIONS ON FILE Pharmacy where request should be sent: [facility] - [address] [phone] [facility] [phone] Last office visit with prescribing clinician: 01/10/2023 Last telemedicine visit with prescribing clinician: Visit date not found Next office visit with prescribing clinician: 01/16/2024 Additional details provided by patient: PATIENT IS OUT OF REFILLS ON ALL MEDICATIONS Does the patient have less than a 3 day supply: [] Yes [x] No Domingo Otto 01/17/23 10:12 EDT documented in this encounter Plan of Treatment Upcoming Encounters Date Type Department Care Team (Late st Contact Info) Description 01/17/2025 9:00 AM EDT Office Visit [facility] [address] [employer] [address] [place] [phone] Keanu Brooks DO [address] [address] [phone] documented as of this encounter Visit Diagnoses Diagnosis Essential hypertension Unspecified essential hypertension Generalized anxiety disorder Primary hypertension Unspecified essential hypertension Idiopathic chronic gout of multiple sites without tophus Other male erectile dysfunction Other insomnia documented in this encounter Care Teams Force Dispatcher Relationship Specialty Start Date End Date Keanu Brooks DO [address] [employer] [address] [place] [address] PCP - General Family Medicine 12/11/18 documented as of this encounter
--- OUTSIDE RECORDS SUMMARY | 2024-10-10 22:50 | XMS_ITS | Encounter Summary ---
[facility] [address] [place] [address] Care Team Providers Care Airplane Pilot Photogrammetry Name Role Phone Keanu Brooks DO Primary Care Provider + [phone] Reason for Visit * Reason Comments Med Refill Encounter Details Date Type Department Care Team (Late st Contact Info) Description 02/07/2022 Refill [facility] [address] [employer] [address] [phone] Keanu Brooks DO [address] [employer] [address] [address] Other insomnia Social History Tobacco [...] 9:00 AM EDT Office Visit [facility] [address] [employer] [address] [phone] Keanu Brooks DO [address] [email or web address] [address] [address] documented as of this encounter Visit Diagnoses Diagnosis Other insomnia documented in this encounter Care Teams Airplane Pilot Photogrammetry Relationship Specialty Start Date End Date Keanu Brooks DO [address] [place] [address] PCP - General Family Medicine 12/11/18 documented as of this encounter
--- OUTSIDE RECORDS SUMMARY | 2024-10-10 22:50 | XMS_ITS | Encounter Summary ---
Author Organization [facility] ystem Address [address] [place] [address] Care Team Providers Care Bottle Machine Operator Name Role Phone Keanu Brooks DO Primary Care Provider + [phone] Reason for Visit * Reason Onset Date Comments HOME HEALTH VISIT REQUESTS 02/05/2022 Encounter Details Date Type Department Care Team (Late st Contact Info) Description 02/05/2022 Telephone [facility] [address] [employer] [address] [phone] Keanu Brooks DO [address] [employer] [facility] [address] [place], [place] [id number] HOME HEALTH VISIT REQUESTS Social History Tobacco Use Types Packs/Day Years [...] Telephone Encounter - Ange Pal MA - 02/05/2022 1:34 PM EDT LM ON CELL FOR HOMEHEALTH * Telephone Encounter - Frida Peñaloza RegSched Rep - 02/05/2022 12:30 PM EDT Caller: DIAZ Relationship to patient: HOME HEALTH Best call back number: [phone] Patient is needing: DIAZ WITH [facility] AT HOME IS CALLING TO REQUEST ADDITIONAL VISITS FOR WOUND CARE. [facility] IS CALLING TO STATE THE 10.5, BY 10. 5- BY 0.2 SONOMETERS ON THE [place]ING. SHE IS REQUESTING THE FOLLOWING HOME HEALTH VISITS: 1 WEEK 1 , 2 WEEK 3, 1 WEEK 2 PLEASE ADVISE. documented in this encounter Plan of Treatment Upcoming Encounters Date Type Department Care Team (Late st Contact Info) Description 01/17/2025 9:00 AM EDT Office Visit [facility] [address] [place] [address] Keanu Brooks DO [address] [place], [place] [phone] documented as of this encounter Visit Diagnoses Not on filedocumented in this encounter Care Teams Bottle Machine Operator Relationship Specialty Start Date End Date Keanu Brooks DO [address] [address] PCP - General Family Medicine 12/11/18 documented as of this encounter
--- OUTSIDE RECORDS SUMMARY | 2024-10-10 22:50 | XMS_ITS | Encounter Summary ---
Author Organization [facility] yste Address [address] [place] [address] Care Team Providers Care Moveman Name Role Phone Keanu Brooks DO Primary Care Provider + [phone] Reason for Visit * Reason Comments Med Refill Encounter Details Date Type Department Care Team (Late st Contact Info) Description 08/25/2020 Refill [facility] [address] [place] [employer] [address] [phone] Keanu Brooks DO [address] [place] [employer] [address] [phone] Social History Tobacco Use Types Packs/Day Years [...] Telephone Encounter - Maday Ferguson MA - 08/25/2020 10:04 AM EST Last appt 07/23/19 Upcoming appt 09/01/20 documented in this encounter Plan of Treatment Upcoming Encounters Date Type Department Care Team (Late st Contact Info) Description 01/17/2025 9:00 AM EDT Office Visit [facility] [address] [facility] [address] [place] [address] Keanu Brooks DO [address] [address] documented as of this encounter Visit Diagnoses Not on filedocumented in this encounter Care Teams Moveman Relationship Specialty Start Date End Date Keanu Brooks DO [address] [address] PCP - General Family Medicine 12/11/18 documented as of this encounter
--- OUTSIDE RECORDS SUMMARY | 2024-10-10 22:50 | XMS_ITS | Encounter Summary ---
Author Organization [facility] ystem Address [address] [place] [address] Care Team Providers Care Gas Plumbing Inspector Name Role Phone Keanu Brooks DO Primary Care Provider + [phone] Encounter Details Date Type Department Care Team (Late st Contact Info) Description 10/09/2023 Telephone [facility] [address] [employer] [address] [phone] Keanu Brooks DO [address] [employer] [address] [phone] Social History Tobacco Use Types Packs/Day Years [...] encounter Miscellaneous Notes * Telephone Encounter - Robyn Murphy MA - 10/10/2023 1:23 PM EST Pt said that he is not having any pain with Walking, he will inform us if that were to occur * Telephone Encounter - Keanu Brooks DO - 10/09/2023 11:34 AM EST Patient had basic screen by his insurance company for vascular disease in legs called ankle brachial index. On left, it was mildly abnormal. Is he getting any cramp in left leg when walks? documented in this encounter Plan of Treatment Upcoming Encounters Date Type Department Care Team (Late st Contact Info) Description 01/17/2025 9:00 AM EDT Office Visit [facility] [address] [phone] Keanu Brooks DO [address] [address] documented as of this encounter Visit Diagnoses Not on filedocumented in this encounter Care Teams Gas Plumbing Inspector Relationship Specialty Start Date End Date Keanu Brooks DO [address] [address] PCP - General Family Medicine 12/11/18 documented as of this encounter
--- OUTSIDE RECORDS SUMMARY | 2024-10-10 22:50 | XMS_ITS | Encounter Summary ---
Author Organization [facility] y[facility] Address [address] [place] [address] Care Team Providers Care Heart Coordinator Name Role Phone Keanu Brooks DO Primary Care Provider + [phone] Reason for Visit * Reason Comments Gout Hypertension Hypogonadism Medicare Wellness-Initial Visit Encounter Details Date Type Department Care Team (Late st Contact Info) Description 01/16/2024 8:30 AM EDT Office Visit [facility] [address] [phone] Keanu Brooks DO [address] [facility] [address] [place], [place] [id number] Welcome to Medicare preventive visit (Primary Dx); Obesity (BMI 30-39.9); Idiopathic chronic gout of multiple sites without tophus; Primary hypertension; Dyslipidemia; Essential hypertension; Other insomnia Social History Tobacco Use Types [...] Pulse 98 01/16/2024 8:44 AM EDT Temperature - - Respiratory Rate - - Oxygen Saturation 96% 01/16/2024 8:44 AM EDT Inhaled Oxygen Concentration - - Weight 89.8 kg (198 lb) 01/16/2024 8:44 AM EDT Height 172.7 cm (5' 8 ) 01/16/2024 8:44 AM EDT Body Mass Index 30.11 01/16/2024 8:44 AM EDT documented in this encounter Patient Instructions * Patient Instructions* Keanu Brooks DO - 01/16/2024 8:30 AM EDT Images from the original note were not included. Advance Care Planning and Advance Directives You make decisions on a daily basis - decisions about where you want to live, your career, your home, your life. Perhaps one of the most important decisions you face is your choice for future medicalcare. Take time to talk with your family and your healthcare team and start planning today. Advance Care Planning is a process that can help you: Understand possible future healthcare decisions in light of your own experiences Reflect on those decision in light of your goals and values Discuss your decisions with those closest to you and the healthcare professionals that care for you Make a plan by creating a document that reflects your wishes Surrogate Decision Maker In the event of a medical emergency, which has left you unable to communicate or to make your own decisions, you would need someone to make decisions for you. It is important to discuss your preferences for medical treatment with this person while you are in good health. Qualities of a surrogate decision maker: Willing to take on this role and responsibility Knows what you want for future medical care Willing to follow your wishes even if they don't agree with them Able to make difficult medical decisions under stressful circumstances Advance Directives These are legal documents you can create that will guide your healthcare team and decision maker(s)when needed. These documents can be stored in the electronic medical record. Living Will - a legal document to guide your care if you have a terminal condition or a serious illness and are unable to communicate. States vary by statute in document names/types, but most forms may include one or more of the following: - Directions regarding life-prolonging treatments - Directions regarding artificially provided nutrition/hydration - Choosing a healthcare decision maker - Direction regarding organ/tissue donation Durable Power of [place] [employer] Dredge [employer] Barge for Healthcare - this document names an [id number] to make medical decisions for you, but it may also allow this person to make personal and financial decisions for you. Please seek the advice of an admitted attorneys if you need this type of document. Advance Directives are not required and no one may discriminate against you if you do not sign one. Medical Orders Many states allow specific forms/orders signed by your physician to record your wishes for medical treatment in your current state of health. This form, signed in personal communication with your physician, addresses resuscitation and other medical interventions that you may or may not want. For more information or to schedule a time with a [facility] Advance Care Planning Sonography Technician contact: [email or web address]/[facility] or call [phone] and someone will contact you directly.Calorie Counting for Weight Loss Calories are units of energy. Your body needs a certain number of calories from food to keep going throughout the day. When you eat or drink more calories than your body needs, your body stores the extra calories mostly as fat. When you eat or drink fewer calories than your body needs, your body johnston fat to get the energy it needs. Calorie counting means keeping track of how many calories you eat and drink each day. Calorie counting can be helpful if you need to lose weight. If you eat fewer calories than your body needs, you should lose weight. Ask your health care provider what a healthy weight is for you. For calorie counting to work, you will need to eat the right number of calories each day to lose a healthy amount of weight per week. A dietitian can help you figure out how many calories you need sirena day and will suggest ways to reach your calorie goal. A healthy amount of weight to lose each week is usually 1-2 lb (0.5-0.9 kg). This usually means that your daily calorie intake should be reduced by 500-750 calories. Eating 1,200-1,500 calories a day can help most women lose weight. Eating 1,500-1,800 calories a day can help most men lose weight. What do I need to know about calorie counting? Work with your health care provider or dietitian to determine how many calories you should get eachday. To meet your daily calorie goal, you will need to: Find out how many calories are in each food that you would like to eat. Try to do this before you eat. Decide how much of the food you plan to eat. Keep a food log. Do this by writing down what you ate and how many calories it had. To successfully lose weight, it is important to balance calorie counting with a healthy lifestyle that includes regular activity. Where do I find calorie information? The number of calories in a food can be found on a Nutrition Facts label. If a food does not have aNutrition Facts label, try to look up the calories online or ask your dietitian for help. Remember that calories are listed per serving. If you choose to have more than one serving of a food, you will have to multiply the calories per serving by the number of servings you plan to eat. Forexample, the label on a package of bread might say that a serving size is 1 slice and that there are 90 calories in a serving. If you eat 1 slice, you will have eaten 90 calories. If you eat 2 slices, you will have eaten 180 calories. How do I keep a food log? After each time that you eat, record the following in your food log as soon as possible: What you ate. Be sure to include toppings, sauces, and other extras on the food. How much you ate. This can be measured in cups, ounces, or number of items. How many calories were in each food and drink. The total number of calories in the food you ate. Keep your food log near you, such as in a pocket-sized notebook or on an logan or website on your mobile phone. Some programs will calculate calories for you and show you how many calories you have left to meet your daily goal. What are some portion-control tips? Know how many calories are in a serving. This will help you know how many servings you can have of a certain food. Use a measuring cup to measure serving sizes. You could also try weighing out portions on a kitchenscale. With time, you will be able to estimate serving sizes for some foods. Take time to put servings of different foods on your favorite plates or in your favorite bowls and cups so you know what a serving looks like. Try not to eat straight from a food's packaging, such as from a bag or box. Eating straight from the package makes it hard to see how much you are eating and can lead to overeating. Put the amount you would like to eat in a cup or on a plate to make sure you are eating the right portion. Use smaller plates, glasses, and bowls for smaller portions and to prevent overeating. Try not to multitask. For example, avoid watching TV or using your computer while eating. If it is time to eat, sit down at a table and enjoy your food. This will help you recognize when you are full. It will also help you be more mindful of what and how much you are eating. What are tips for following this plan? Reading food labels Check the calorie count compared with the serving size. The serving size may be smaller than what you are used to eating. Check the source of the calories. Try to choose foods that are high in protein, fiber, and vitamins, and low in saturated fat, trans fat, and sodium. Shopping Read nutrition labels while you shop. This will help you make healthy decisions about which foods to buy. Pay attention to nutrition labels for low-fat or fat-free foods. These foods sometimes have the same number of calories or more calories than the full-fat versions. They also often have added sugar, starch, or salt to make up for flavor that was removed with the fat. Make a grocery list of lower-calorie foods and stick to it. Cooking Try to cook your favorite foods in a healthier way. For example, try baking instead of frying. Use low-fat dairy products. Meal planning Use more fruits and vegetables. One-half of your plate should be fruits and vegetables. Include lean proteins, such as chicken, turkey, and fish. Lifestyle Each week, aim to do one of the followin minutes of moderate exercise, such as walking. 75 minutes of vigorous exercise, such as running. General information Know how many calories are in the foods you eat most often. This will help you calculate calorie counts faster. Find a way of tracking calories that works for you. Get creative. Try different apps or programs ifwriting down calories does not work for you. What foods should I eat? Eat nutritious foods. It is better to have a nutritious, high-calorie food, such as an avocado, than a food with few nutrients, such as a bag of potato chips. Use your calories on foods and drinks that will fill you up and will not leave you hungry soon after eating. Examples of foods that fill you up are nuts and nut butters, vegetables, lean proteins, and high-fiber foods such as whole grains. High-fiber foods are foods with more than 5 g of fiber per serving. Pay attention to calories in drinks. Low-calorie drinks include water and unsweetened drinks. The items listed above may not be a complete list of foods and beverages you can eat. Contact a dietitian for more information. What foods should I limit? Limit foods or drinks that are not good sources of vitamins, minerals, or protein or that are high in unhealthy fats. These include: Candy. Other sweets. Sodas, specialty coffee drinks, alcohol, and juice. The items listed above may not be a complete list of foods and beverages you should avoid. Contact a dietitian for more information. How do I count calories when eating out? Pay attention to portions. Often, portions are much larger when eating out. Try these tips to keep portions smaller: Consider sharing a meal instead of getting your own. If you get your own meal, eat only half of it. Before you start eating, ask for a container and puthalf of your meal into it. When available, consider ordering smaller portions from the menu instead of full portions. Pay attention to your food and drink choices. Knowing the way food is cooked and what is included with the meal can help you eat fewer calories. If calories are listed on the menu, choose the lower-calorie options. Choose dishes that include vegetables, fruits, whole grains, low-fat dairy products, and lean proteins. Choose items that are boiled, broiled, grilled, or steamed. Avoid items that are buttered, battered, fried, or served with cream sauce. Items labeled as crispy are usually fried, unless stated otherwise. Choose water, low-fat milk, unsweetened iced tea, or other drinks without added sugar. If you want an alcoholic beverage, choose a lower-calorie option, such as a glass of wine or light beer. Ask for dressings, sauces, and syrups on the side. These are usually high in calories, so you should limit the amount you eat. If you want a salad, choose a garden salad and ask for grilled meats. Avoid extra toppings such as hernandez, cheese, or fried items. Ask for the dressing on the side, or ask for olive oil and vinegar orlemon to use as dressing. Estimate how many servings of a food you are given. Knowing serving sizes will help you be aware ofhow much food you are eating at restaurants. Where to find more information Centers for Disease Control and Prevention: www.cdc.gov U.S. Department of Agriculture: myplate.gov Summary Calorie counting means keeping track of how many calories you eat and drink each day. If you eat fewer calories than your body needs, you should lose weight. A healthy amount of weight to lose per week is usually 1-2 lb (0.5-0.9 kg). This usually means reducing your daily calorie intake by 500-750 calories. The number of calories in a food can be found on a Nutrition Facts label. If a food does not have aNutrition Facts label, try to look up the calories online or ask your dietitian for help. Use smaller plates, glasses, and bowls for smaller portions and to prevent overeating. Use your calories on foods and drinks that will fill you up and not leave you hungry shortly after a meal. This information is not intended to replace advice given to you by your health care provider. Make sure you discuss any questions you have with your health care provider. Document Revised: 10/16/2020 Document Reviewed: 10/16/2020 [employer] Patient Education ?? 2021 [employer] Exercising to Lose Weight Getting regular exercise is important for everyone. It is especially important if you are overweight. Being overweight increases your risk of heart disease, stroke, diabetes, high blood pressure, andseveral types of cancer. Exercising, and reducing the calories you consume, can help you lose weight and improve fitness and health. Exercise can be moderate or vigorous intensity. To lose weight, most people need to do a certain amount of moderate or vigorous-intensity exercise each week. How can exercise affect me? You lose weight when you exercise enough to burn more calories than you eat. Exercise also reduces body fat and builds muscle. The more muscle you have, the more calories you burn. Exercise also: Improves mood. Reduces stress and tension. Improves your overall fitness, flexibility, and endurance. Increases bone strength. Moderate-intensity exercise Moderate-intensity exercise is any activity that gets you moving enough to burn at least three times more energy (calories) than if you were sitting. Examples of moderate exercise include: Walking a mile in 15 minutes. Doing light yard work. Biking at an easy pace. Most people should get at least 150 minutes of moderate-intensity exercise a week to maintain theirbody weight. Vigorous-intensity exercise Vigorous-intensity exercise is any activity that gets you moving enough to burn at least six times more calories than if you were sitting. When you exercise at this intensity, you should be working hard enough that you are not able to carry on a conversation. Examples of vigorous exercise include: Running. Playing a team sport, such as football, basketball, and soccer. Jumping rope. Most people should get at least 75 minutes a week of vigorous exercise to maintain their body weight. What actions can I take to lose weight? The amount of exercise you need to lose weight depends on: Your age. The type of exercise. Any health conditions you have. Your overall physical ability. Talk to your health care provider about how much exercise you need and what types of activities aresafe for you. Nutrition Make changes to your diet as told by your health care provider or diet and nutrition instructor (dietitian). This may include: Eating fewer calories. Eating more protein. Eating less unhealthy fats. Eating a diet that includes fresh fruits and vegetables, whole grains, low-fat dairy products, and lean protein. Avoiding foods with added fat, salt, and sugar. Drink plenty of water while you exercise to prevent dehydration or heat stroke. Activity Choose an activity that you enjoy and set realistic goals. Your health care provider can help you make an exercise plan that works for you. Exercise at a moderate or vigorous intensity most days of the week. The intensity of exercise may vary from person to person. You can tell how intense a workout is foryou by paying attention to your breathing and heartbeat. Most people will notice their breathing and heartbeat get faster with more intense exercise. Do resistance training twice each week, such as: Push-ups. Sit-ups. Lifting weights. Using resistance bands. Getting short amounts of exercise can be just as helpful as long, structured periods of exercise. If you have trouble finding time to exercise, try doing these things as part of your daily routine: Get up, stretch, and walk around every 30 minutes throughout the day. Go for a walk during your lunch break. Park your car farther away from your destination. If you take public transportation, get off one stop early and walk the rest of the way. Make phone calls while standing up and walking around. Take the stairs instead of elevators or escalators. Wear comfortable clothes and shoes with good support. Do not exercise so much that you hurt yourself, feel dizzy, or get very short of breath. Where to find more information U.S. Department of Health and Human Services: www.hhs.gov Centers for Disease Control and Prevention: www.cdc.gov Contact a health care provider: Before starting a new exercise program. If you have questions or concerns about your weight. If you have a medical problem that keeps you from exercising. Get help right away if: You have any of the following while exercising: Injury. Dizziness. Difficulty breathing or shortness of breath that does not go away when you stop exercising. Chest pain. Rapid heartbeat. These symptoms may represent a serious problem that is an emergency. Do not wait to see if the symptoms will go away. Get medical help right away. Call your local emergency services (911 in the [place] Do not drive yourself to the hospital. Summary Getting regular exercise is especially important if you are overweight. Being overweight increases your risk of heart disease, stroke, diabetes, high blood pressure, and several types of cancer. Losing weight happens when you burn more calories than you eat. Reducing the amount of calories you eat, and getting regular moderate or vigorous exercise each week, helps you lose weight. This information is not intended to replace advice given to you by your health care provider. Make sure you discuss any questions you have with your health care provider. Document Revised: 11/01/2021 Document Reviewed: 11/01/2021 [employer] Patient Education ?? 2021 [employer] documented in this encounter Progress Notes * Keanu Brooks DO - 01/16/2024 8:30 AM EDT QUICK REFERENCE INFORMATION: The ABCs of the Annual Wellness Visit [place] Wellness Visit HEALTH RISK ASSESSMENT 1960 Yovanny Steve is a 63 y.o. male who presents for an [place] to Medicare Wellness Visit. Patient had rotator cuff tear repaired since last seen; Sees ortho for gel injections. Had 5 shot, will go back regular ortho for this; plans future TKA Has htn, hld and gout hx; all stable; due annual labs Sees urology for hypogonadism. The following portions of the patient's history were reviewed and updated as appropriate: allergies, current medications, past family history, past medical history, past social history, past surgical history, and problem list. Compared to one year ago, the patient feels his physical health is the same. Compared to one year ago, the patient feels his mental health is the same. Recent Hospitalizations: He was not admitted to the hospital during the last year. Current Medical Providers: Patient Care Team: Keanu Brooks DO as PCP - General (Family Medicine) Alphonso Mo MD as Consulting Physician (Urology) Tamera Poole APRN (Nurse Practitioner) I reviewed list of current Medical providers and suppliers with patient and are listed above to thebest of the patient's and my knowledge. Smoking Status: Social History Tobacco Use Smoking Status Some Days Types: Cigars Smokeless Tobacco Never Tobacco Comments rarely smokes cigars Alcohol Consumption: Social History Substance and Sexual Activity Alcohol Use Yes Depression Screen: 01/16/2024 8:00 AM PHQ-2/PHQ-9 Depression Screening Little Interest or Pleasure in Doing Things 0-->not at all Feeling Down, Depressed or Hopeless 0-->not at all PHQ-9: Brief Depression Severity Measure Score 0 Health Habits and Functional and Cognitive Screenin01/16/2024 8:00 AM Functional & Cognitive Status Do you have difficulty preparing food and eating? No Do you have difficulty bathing yourself, getting dressed or grooming yourself? No Do you have difficulty using the toilet? No Do you have difficulty moving around from place to place? No Do you have trouble with steps or getting out of a bed or a chair? No Current Diet Well Balanced Diet Dental Exam Up to date Eye Exam Not up to date Exercise (times per week) 3 times per week Current Exercises Include Yard Work Do you need help using the phone? No Are you deaf or do you have serious difficulty hearing? No Do you need help to go to places out of walking distance? No Do you need help shopping? No Do you need help preparing meals? No Do you need help with housework? No Do you need help with laundry? No Do you need help taking your medications? No Do you need help managing money? No Do you ever drive or ride in a car without wearing a seat belt? No Have you felt unusual stress, anger or loneliness in the last month? No Who do you live with? Other If you need help, do you have trouble finding someone available to you? No Have you been bothered in the last four weeks by sexual problems? No Do you have difficulty concentrating, remembering or making decisions? No Does the patient have evidence of cognitive impairment? No Aspirin use counseling: Does not need ASA (and currently is not on it) Recent Lab Results: CMP: Lab Results Component Value Date GLU 175 (H) 03/31/2022 BUN 16 01/10/2023 CREATININE 1.22 01/10/2023 EGFRIFNONA 61 09/01/2020 EGFRIFAFRI >60 03/31/2022 BCR 13.1 01/10/2023 NA 142 01/10/2023 K 4.0 08/19/2023 CO2 27.4 01/10/2023 CALCIUM 9.8 01/10/2023 PROTENTOTREF 6.3 01/10/2023 ALBUMIN 3.7 01/10/2023 LABGLOBREF 2.6 01/10/2023 LABIL2 1.4 01/10/2023 BILITOT <0.2 01/10/2023 ALKPHOS 122 (H) 01/10/2023 AST 22 01/10/2023 ALT 25 01/10/2023 Lipid Panel: Lab Results Component Value Date TRIG 75 01/10/2023 HDL 47 01/10/2023 VLDL 15 01/10/2023 HbA1c: Visual Acuity: Vision Screening Right eye Left eye Both eyes Without correction 20/25 20/25 20/25 With correction Age-appropriate Screening Schedule: Refer to the list below for future screening recommendations based on patient's age, sex and/or medical conditions. Orders for these recommended tests are listed in the plan section. The patient has been provided with a written plan. Health Maintenance Topic Date Due RSV Vaccine - Adults (1 - 1-dose 60+ series) Never done Pneumococcal Vaccine 65+ (3 of 3 - PPSV23 or PCV20) 2023 AAA SCREEN (ONE-TIME) Never done COVID-19 Vaccine ( - 2022- season) 2023 TDAP/TD VACCINES (1 - Tdap) 06/03/2024 (Originally 1979) INFLUENZA VACCINE 04/19/2024 BMI FOLLOWUP 06/03/2024 ANNUAL WELLNESS VISIT 01/15/2025 COLORECTAL CANCER SCREENING 02/04/2027 HEPATITIS C SCREENING Addressed Outpatient Medications Prior to Visit Medication Sig Dispense Refill albuterol sulfate HFA 108 (90 Base) MCG/ACT inhaler Inhale 2 puffs Every 4 (Four) Hours As Needed for Wheezing. 68 g 3 allopurinol (ZYLOPRIM) 300 MG tablet Take 1 tablet by mouth Daily. 90 tablet 3 budesonide-formoterol (Symbicort) 160-4.5 MCG/ACT inhaler Inhale 2 puffs 2 (Two) Times a Day. 18 each 3 fluticasone (FLONASE) 50 MCG/ACT nasal spray 2 sprays by Each Nare route Daily. 48 g 3 hydrOXYzine (ATARAX) 10 MG tablet Take 1 tablet by mouth 3 (Three) Times a Day As Needed for Anxiety (sleep). 45 tablet 2 lisinopril-hydrochlorothiazide (PRINZIDE,ZESTORETIC) 20-25 MG per tablet Take 1 tablet by mouth Daily. 90 tablet 3 Spiriva Respimat 2.5 MCG/ACT aerosol solution inhaler Inhale 2 puffs Daily. 1 g 0 tadalafil (CIALIS) 20 MG tablet Take 1 tablet by mouth Daily As Needed for Erectile Dysfunction. 90tablet 3 Testosterone Cypionate (DEPOTESTOTERONE CYPIONATE) 200 MG/ML injection Inject 0.5 mL into the appropriate muscle as directed by prescriber 1 (One) Time Per Week. 2 mL 3 traZODone (DESYREL) 150 MG tablet Take 1 tablet by mouth Every Night. 90 tablet 1 Wixela Inhub 500-50 MCG/ACT DISKUS Inhale 1 puff 2 (Two) Times a Day. No facility-administered medications prior to visit. Patient Active Problem List Diagnosis Asthma ED (erectile dysfunction) Hypertension Sleep apnea Primary osteoarthritis of hips, bilateral Stage 3a chronic kidney disease Status post total replacement of both hips Advance Care Planning: ACP discussion was held with the patient during this visit. Patient does not have an advance directive, information provided. Identification of Risk Factors: Risk factors include: Obesity/Overweight . Review of Systems Respiratory: Negative for shortness of breath. Cardiovascular: Negative for chest pain and palpitations. Musculoskeletal: Positive for arthralgias. Compared to one year ago, the patient feels his physical health is the same. Compared to one year ago, the patient feels his mental health is the same. Objective Physical Exam Vitals and nursing note reviewed. [...] He is alert. Psychiatric: Behavior: Behavior normal. Vitals: 01/16/24 0844 BP: 108/76 Pulse: 98 SpO2: 96% Weight: 89.8 kg (198 lb) Height: 172.7 cm (68 ) PainSc: 0-No pain Body mass index is 30.11 kg/m??. Assessment & Plan Patient Self-Management and Personalized Health Advice The patient has been provided with information about: diet and exercise and preventive services including: Annual Wellness Visit (AWV). Visit Diagnoses: ICD-10-CM ICD-9-CM 1. Welcome to Medicare preventive visit Z00.00 V70.0 2. Obesity (BMI 30-39.9) E66.9 278.00 3. Idiopathic chronic gout of multiple sites without tophus [id number] 274.02 4. Primary hypertension I10 401.9 5. Dyslipidemia E78.5 272.4 Orders Placed This Encounter Procedures Comprehensive Metabolic Panel Order Specific Question: Release to patient Answer: Routine Release [[id number]] Lipid Panel Order Specific Question: Release to patient Answer: Routine Release [[id number]] Uric Acid Order Specific Question: Release to patient Answer: Routine Release [[id number]] Outpatient Encounter Medications as of 01/16/2024 Medication Sig Dispense Refill albuterol sulfate HFA 108 (90 Base) MCG/ACT inhaler Inhale 2 puffs Every 4 (Four) Hours As Needed for Wheezing. 68 g 3 allopurinol (ZYLOPRIM) 300 MG tablet Take 1 tablet by mouth Daily. 90 tablet 3 budesonide-formoterol (Symbicort) 160-4.5 MCG/ACT inhaler Inhale 2 puffs 2 (Two) Times a Day. 18 each 3 fluticasone (FLONASE) 50 MCG/ACT nasal spray 2 sprays by Each Nare route Daily. 48 g 3 hydrOXYzine (ATARAX) 10 MG tablet Take 1 tablet by mouth 3 (Three) Times a Day As Needed for Anxiety (sleep). 45 tablet 2 lisinopril-hydrochlorothiazide (PRINZIDE,ZESTORETIC) 20-25 MG per tablet Take 1 tablet by mouth Daily. 90 tablet 3 Spiriva Respimat 2.5 MCG/ACT aerosol solution inhaler Inhale 2 puffs Daily. 1 g 0 tadalafil (CIALIS) 20 MG tablet Take 1 tablet by mouth Daily As Needed for Erectile Dysfunction. 90tablet 3 Testosterone Cypionate (DEPOTESTOTERONE CYPIONATE) 200 MG/ML injection Inject 0.5 mL into the appropriate muscle as directed by prescriber 1 (One) Time Per Week. 2 mL 3 traZODone (DESYREL) 150 MG tablet Take 1 tablet by mouth Every Night. 90 tablet 1 Wixela Inhub 500-50 MCG/ACT DISKUS Inhale 1 puff 2 (Two) Times a Day. No facility-administered encounter medications on file as of 01/16/2024. Reviewed use of high risk medication in the elderly: yes Reviewed for potential of harmful drug interactions in the elderly: yes No opioid medication identified on active medication list. I have reviewed chart for other potential high risk medication/s and harmful drug interactions in the elderly. Social History Socioeconomic History Marital status: Single Tobacco Use Smoking status: Some Days Types: Cigars Smokeless tobacco: Never Tobacco comments: rarely smokes cigars Vaping Use Vaping status: Never Used Substance and Sexual Activity Alcohol use: Yes Drug use: Never Sexual activity: Defer Patient was screened for OUD and ISAAC risk factors. Yovanny Steve's pain level was assessed as well today. I included a review current recommendations on pain management, best use practices, current CDC guidelines, alternatives to opioids including OTC & Rx topicals, non-opioid oral medications (egnsaids, acetominophen) and life style interventions such as yoga, kellie chi, stretching, regular exercise, PT/OT and referral to specialty care like Pain Management that specialize in pain treatment when appropriate. I also included a review of serious risks of opioid use and substance use disorder. I have included all of this in the after visit summary along with other risk factors identified thatare pertinent to the patient today. Follow Up: Return in about 1 year (around 01/15/2025), or if symptoms worsen or fail to improve. An After Visit Summary and PPPS with all of these plans were given to the patient. ++++++++++++++++++++++++++++++++++++++++++++++++++++++++++++++++++ * Keanu Brooks DO - 01/16/2024 8:30 AM EDT Mail copy of results to patient. Kidney and liver function normal Cholesterol controlled Uric acid now below 6, which should help prevent gout documented in this encounter Plan of Treatment Upcoming Encounters Date Type Department Care Team (Late st Contact Info) Description 01/17/2025 9:00 AM EDT Office Visit [facility] [address] [place] [phone] Keanu Brooks DO [address] [place] [address] documented as of this encounter Procedures Procedure Name Priority Date/Time Associated Diagnosis Comments URIC ACID Routine 01/16/2024 9:08 AM EDT Idiopathic chronic gout of multiple sites without tophus LIPID PANEL Routine 01/16/2024 9:08 AM EDT Dyslipidemia COMPREHENSIVE METABOLIC PANEL Routine 01/16/2024 9:08 AM EDT Primary hypertension Dyslipidemia documented in this encounter Results * Uric Acid (01/16/2024 9:08 AM EDT) Uric Acid 5.8 3.4 - 7.0 mg/dL [facility] Blood 01/16/2024 9:08 AM EDT 01/16/2024 Narrative [facility] ([facility]) - 01/16/2024 8:07 PM EDT Performed at: ??[address] - [address] ??[id number] Nurse Behavioral Health Care: Keanu Roy MD, Phone: ??[phone] Patient Fasting: ??N Keanu Brooks DO LAB BLOOD ORDERABLES Final R esult [facility] ([facility]) [address] [place] [address], [facility] [address] [place] [address], * Lipid Panel (01/16/2024 9:08 AM EDT) [facility] Total Cholesterol 154 0 - 200 mg/dL [facility] Comment: Cholesterol Reference Ranges (U.S. Department of Health and Human Services ATP III Classifications) Desirable ?<200 mg/dL Borderline High ?200-239 mg/dL High Risk ?>240 mg/dL Triglyceride Reference Ranges (U.S. Department of Health and Human Services ATP III Classifications) Normal ? <150 mg/dL Borderline High ??150-199 mg/dL High ? 200-499 mg/dL Very High ?>500 mg/dL HDL Reference Ranges (U.S. Department of Health and Human Services ATP III Classifications) Low ? <40 mg/dl (major risk factor for CHD) High ?>60 mg/dl ('negative' risk factor for CHD) LDL Reference Ranges (U.S. Department of Health and Human Services ATP III Classifications) Optimal ?<100 mg/dL Near Optimal ? 100-129 mg/dL Borderline High ??130-159 mg/dL High ? 160-189 mg/dL Very High ?>189 mg/dL Triglycerides 67 0 - 150 mg/dL [facility] HDL Cholesterol 47 40 - 60 mg/dL [facility] VLDL Cholesterol Miguel 13 5 - 40 mg/dL [facility] LDL Chol Calc (NIH) 94 0 - 100 mg/dL [facility] Blood 01/16/2024 9:08 AM EDT 01/16/2024 Narrative [facility] ([facility]) - 01/16/2024 8:07 PM EDT Performed at: ??[address] ??[id number] Nurse Behavioral Health Care: Keanu Roy MD, Phone: ??[phone] Patient Fasting: ??N us Keanu Brooks DO LAB BLOOD ORDERABLES Final R esult [facility] ([facility]) [address] [place] [address], [place] [phone] [facility] [address] [place] [address], [place] [phone] * (ABNORMAL) Comprehensive Metabolic Panel (01/16/2024 9:08 AM EDT) Pathologist [facility] Glucose 130(H) 65 - 99 mg/dL [facility] BUN 15 8 - 23 mg/dL [facility] Creatinine 1.26 0.76 - 1.27 mg/dL [facility] EGFR Result 63.3 >60.0 mL/min/1.7 3 [facility] Comment: GFR Normal >60 Chronic Kidney Disease <60 Kidney Failure <15 BUN/Creatinine Ratio 11.9 7.0 - 25.0 [facility] Sodium 138 136 - 145 mmol/L [facility] Potassium 3.6 3.5 - 5.2 mmol/L [facility] Chloride 102 98 - 107 mmol/L [facility] Total CO2 26.4 22.0 - 29.0 mmol/L [facility] Calcium 9.7 8.6 - 10.5 mg/dL [facility] Total Protein 6.2 6.0 - 8.5 g/dL [facility] Albumin 4.0 3.5 - 5.2 g/dL [facility] Globulin 2.2 gm/dL [facility] A/G Ratio 1.8 g/dL [facility] Total Bilirubin 0.3 0.0 - 1.2 mg/dL [facility] Alkaline Phosphatase 111 39 - 117 U/L [facility] AST (SGOT) 14 1 - 40 U/L [facility] ALT (SGPT) 19 1 - 41 U/L [facility] Blood 01/16/2024 9:08 AM EDT 01/16/2024 Narrative [facility] ([facility]) - 01/16/2024 8:07 PM EDT Performed at: ??01 - [facility] [address] [place], [place] ??[id number] Nurse Behavioral Health Care: Keanu Roy MD, Phone: ??[phone] Patient Fasting: ??N Keanu Brooks DO LAB BLOOD ORDERABLES Final R esult [facility] ([facility]) [address] [place] [address], [place] [phone] [facility] [address] [place] [address], [place] [phone] documented in this encounter Visit Diagnoses Diagnosis Welcome to Medicare preventive visit- Primary Obesity (BMI 30-39.9) Idiopathic chronic gout of multiple sites without tophus Primary hypertension Unspecified essential hypertension Dyslipidemia Other and unspecified hyperlipidemia Essential hypertension Unspecified essential hypertension Other insomnia documented in this encounter Care Teams Heart Coordinator Relationship Specialty Start Date End Date Keanu Brooks DO [address] [address] PCP - General Family Medicine 12/11/18 documented as of this encounter
--- OUTSIDE RECORDS SUMMARY | 2024-10-10 22:50 | XMS_ITS | Encounter Summary ---
Author Organization [facility] yste Address [address] [place] [address] Care Team Providers Care Mission Commander Name Role Phone Keanu Brooks DO Primary Care Provider + [phone] Reason for Visit * Reason Onset Date Comments Med Refill 10/09/2023 Encounter Details Date Type Department Care Team (Late st Contact Info) Description 10/09/2023 Refill [facility]IMARY [facility] [address] [employer] [address] [phone] Keanu Brooks DO [address] [employer] [facility] [address] [place], [place] [phone] Social History Tobacco Use Types Packs/Day Years [...] 9:00 AM EDT Office Visit [facility] [email or web address] [address] [phone] Keanu Brooks DO [address] [address] documented as of this encounter Visit Diagnoses Not on filedocumented in this encounter Care Teams Mission Commander Relationship Specialty Start Date End Date Keanu Brooks DO [address] [employer] [address] [address] PCP - General Family Medicine 12/11/18 documented as of this encounter
--- OUTSIDE RECORDS SUMMARY | 2024-10-10 22:50 | XMS_ITS | Encounter Summary ---
Author Organization [facility] yste Address [address] [place] [address] Care Team Providers Care Environmental Services Aide Name Role Phone Keanu Brooks DO Primary Care Provider + [phone] Reason for Visit * Reason Comments Med Refill Encounter Details Date Type Department Care Team (Late st Contact Info) Description 06/01/[address] [facility] PRIMARY [facility] [address] [phone] Keanu Brooks DO [address] [facility] 6 [place], [place] [phone] MAITE (generalized anxiety disorder) Social History Tobacco Use Types Packs/Day Years [...] AM EDT Office Visit [facility] [address] [employer] [address] [place] [phone] Keanu Brooks DO [address] [employer] [address] [place] [address] documented as of this encounter Visit Diagnoses Diagnosis MAITE (generalized anxiety disorder) Generalized anxiety disorder documented in this encounter Care Teams Environmental Services Aide Relationship Specialty Start Date End Date Keanu Brooks DO [address] [address] [place] [address] PCP - General Family Medicine 12/11/18 documented as of this encounter
--- OUTSIDE RECORDS SUMMARY | 2024-10-10 22:50 | XMS_ITS | Encounter Summary ---
Author Organization [facility] Address [address] [place] [address] Care Team Providers Care Engine Hostler Name Role Phone Keanu Brooks DO Primary Care Provider + [phone] Reason for Visit * Reason Comments Med Refill Encounter Details Date Type Department Care Team (Late st Contact Info) Description 07/31/2021 Refill [facility] [address] [employer] [address] [phone] Keanu Brooks DO [address] [employer] [address] [address] Social History Tobacco Use Types [...] Description 01/17/2025 9:00 AM EDT Office Visit [facility] [address] [address] [phone] Keanu Brooks DO [address] [employer] [address] [address] documented as of this encounter Visit Diagnoses Not on filedocumented in this encounter Care Teams Engine Hostler Relationship Specialty Start Date End Date Keanu Brooks DO [address] [place] [address] PCP - General Family Medicine 12/11/18 documented as of this encounter
--- OUTSIDE RECORDS SUMMARY | 2024-10-10 22:50 | XMS_ITS | Encounter Summary ---
Author Organization [facility] Address [address] [place] [address] Care Team Providers Care Pmo Project Manager Name Role Phone Keanu Brooks DO Primary Care Provider + [phone] Reason for Visit * Reason Comments Annual Exam Gout Hypogonadism Hypertension Sleep Apnea Encounter Details Date Type Department Care Team (Late st Contact Info) Description 01/10/2023 8:00 AM EDT Office Visit [facility]IMARY [facility] [address] [address] [phone] Keanu Brooks DO [address] [employer] [facility] [address] [place], [place] [phone] Wellness examination (Primary Dx); Other insomnia; Hypogonadism in male; Stage 3a chronic kidney disease; Primary hypertension; Obesity (BMI 30-39.9); Benign prostatic hyperplasia without lower urinary tract symptoms; Dyslipidemia; Idiopathic chronic gout of multiple sites without tophus Social History Tobacco Use Types Packs/Day Years Used Date Smoking Tobacco: Some Days Cigars Smokeless Tobacco: Never Tobacco Cessation:Ready to Q uit: No; Counseling Given: Yes Comments:rarely smokes cigars Alcohol [...] Sign Reading Time Taken Comments Blood Pressure 138/84 01/10/2023 8:05 AM EDT Pulse 82 01/10/2023 8:05 AM EDT Temperature - - Respiratory Rate - - Oxygen Saturation 98% 01/10/2023 8:05 AM EDT Inhaled Oxygen Concentration - - Weight 89.8 kg (198 lb) 01/10/2023 8:05 AM EDT Height 172.7 cm (5' 8 ) 01/10/2023 8:05 AM EDT Body Mass Index 30.11 01/10/2023 8:05 AM EDT documented in this encounter Progress Notes * Keanu Brooks, DO - 01/10/2023 8:00 AM EDT Luis Steve is a 62 y.o. male. Presents today for Chief Complaint Patient presents with ??? Annual Exam ??? Gout ??? Hypogonadism ??? Depression ??? Hypertension History of Present Illness Patient 62 y/o male here for wellness exam; Has htn, insomina with javan, ckd and gout; No acute issues today; Sees urology for hypogonadism. Going gym; No cp/soa; No gout attacks; Review of Systems Respiratory: Negative for shortness of breath. Cardiovascular: Negative for chest pain and palpitations. Gastrointestinal: Negative for abdominal pain. Patient Active Problem List Diagnosis ??? Asthma ??? ED (erectile dysfunction) ??? Hypertension ??? Sleep apnea ??? Primary osteoarthritis of hips, bilateral ??? Stage 3a chronic kidney disease ??? Status post total replacement of both hips Social History Socioeconomic History ??? Marital status: Single Tobacco Use ??? Smoking status: Some Days Types: Cigars ??? Smokeless tobacco: Never ??? Tobacco comments: rarely smokes cigars Substance and Sexual Activity ??? Alcohol use: Yes ??? Drug use: Never ??? Sexual activity: Defer No Known Allergies Current Outpatient Medications on File Prior to Visit Medication Sig Dispense Refill ??? albuterol sulfate HFA 108 (90 Base) MCG/ACT inhaler USE 2 INHALATIONS EVERY 4 TO 6 HOURS NEEDED FOR WHEEZING 68 g 3 ??? allopurinol (ZYLOPRIM) 300 MG tablet TAKE 1 TABLET DAILY 90 tablet 3 ??? Dulera 200-5 MCG/ACT inhaler USE 2 INHALATIONS TWICE A DAY 13 g 11 ??? fluticasone (FLONASE) 50 MCG/ACT nasal spray USE 2 SPRAYS IN EACH NOSTRIL DAILY 48 g 3 ??? lisinopril-hydrochlorothiazide (PRINZIDE,ZESTORETIC) 20-25 MG per tablet TAKE 1 TABLET DAILY 90tablet 3 ??? montelukast (SINGULAIR) 10 MG tablet Take 1 tablet by mouth Daily. ??? sertraline (ZOLOFT) 25 MG tablet TAKE 1 TABLET DAILY 90 tablet 3 ??? Spiriva Respimat 2.5 MCG/ACT aerosol solution inhaler USE 2 INHALATIONS DAILY 12 g 3 ??? tadalafil (CIALIS) 20 MG tablet TAKE 1 TABLET DAILY NEEDED FOR ERECTILE DYSFUNCTION 30 tablet 3 ??? Testosterone Cypionate (DEPOTESTOTERONE CYPIONATE) 200 MG/ML injection INJECT O.5MG EVERY WEEK 3 ??? [DISCONTINUED] traZODone (DESYREL) 150 MG tablet Take 1 tablet by mouth Every Night. 30 tablet 0 No current facility-administered medications on file prior to visit. Objective Vitals: 01/10/23 0805 BP: 138/84 Pulse: 82 SpO2: 98% Weight: 89.8 kg (198 lb) Height: 172.7 cm (68 ) Body mass index is 30.11 kg/m??. Physical Exam Vitals and nursing note [...] He is alert. Psychiatric: Behavior: Behavior normal. Assessment & Plan Diagnoses and all orders for this visit: 1. Wellness examination (Primary) counseled on diet and exercise BMI above goal, educational material on diet and exercise provided in AVS. See urology for hypogonadism - gave lab order for wellness labs to have done with his labs there javan - see sleep specialist -Follow up: * Keanu Brooks DO - 01/10/2023 8:00 AM EDT Mail copy of results to patient. Kidney and liver function normal Uric acid level improved Cholesterol well controlled documented in this encounter Plan of Treatment Upcoming Encounters Date Type Department Care Team (Late st Contact Info) Description 01/17/2025 9:00 AM EDT Office Visit [facility] [address] [phone] Keanu Brooks DO [address] [facility] 6 [place] [address] documented as of this encounter Procedures Procedure Name Priority Date/Time Associated Diagnosis Comments URIC ACID Routine 01/10/2023 8:31 AM EDT Stage 3a chronic kidney disease Idiopathic chronic gout of multiple sites without tophus LIPID PANEL Routine 01/10/2023 8:31 AM EDT Dyslipidemia COMPREHENSIVE METABOLIC PANEL Routine 01/10/2023 8:31 AM EDT Stage 3a chronic kidney disease Dyslipidemia documented in this encounter Results * Uric Acid (01/10/2023 8:31 AM EDT) Uric Acid 6.4 3.4 - 7.0 mg/dL [facility] Blood 01/10/2023 8:31 AM EDT 01/10/2023 Narrative [facility] ([facility]) - 01/11/2023 3:07 AM EDT Performed at: ??[address] ??[id number] Cosmetic Manager: Keanu Roy MD, Phone: ??[phone] Patient Fasting: ??N us Keanu Brooks DO LAB BLOOD ORDERABLES Final R esult [facility] ([facility]) [address] [place] [address], [place] [phone] [facility] [address] [place] [address], [place] [phone] * Lipid Panel (01/10/2023 8:31 AM EDT) [facility] Total Cholesterol 147 0 - 200 mg/dL [facility] Comment: [...] 160-189 mg/dL Very High ?>189 mg/dL Triglycerides 75 0 - 150 mg/dL [facility] HDL Cholesterol 47 40 - 60 mg/dL [facility] VLDL Cholesterol Miguel 15 5 - 40 mg/dL [facility] LDL Chol Calc (NIH) 85 0 - 100 mg/dL [facility] Blood 01/10/2023 8:31 AM EDT 01/10/2023 Narrative [facility] ([facility]) - 01/11/2023 3:07 AM EDT Performed at: ??01 - [place] [address] [address] [place], [place] ??[id number] Cosmetic Manager: Keanu Roy MD, Phone: ??[phone] Patient Fasting: ??N us Keanu Brooks DO LAB BLOOD ORDERABLES Final R esult [facility] ([facility]) [address] [place] [address], [facility] [address] [place] [address], * (ABNORMAL) Comprehensive Metabolic Panel (01/10/2023 8:31 AM EDT) Glucose 109(H) 65 - 99 mg/dL [facility] BUN 16 8 - 23 mg/dL [facility] Creatinine 1.22 0.76 - 1.27 mg/dL [facility] EGFR Result 66.2 >60.0 mL/min/1.7 3 [facility] Comment: GFR Normal >60 Chronic Kidney Disease <60 Kidney Failure <15 BUN/Creatinine Ratio 13.1 7.0 - 25.0 [facility] Sodium 142 136 - 145 mmol/L [facility] Potassium 4.3 3.5 - 5.2 mmol/L [facility] Chloride 107 98 - 107 mmol/L [facility] Total CO2 27.4 22.0 - 29.0 mmol/L [facility] Calcium 9.8 8.6 - 10.5 mg/dL [facility] Total Protein 6.3 6.0 - 8.5 g/dL [facility] Albumin 3.7 3.5 - 5.2 g/dL [facility] Globulin 2.6 gm/dL [facility] A/G Ratio 1.4 g/dL [facility] Total Bilirubin <0.2 0.0 - 1.2 mg/dL [facility] Alkaline Phosphatase 122(H) 39 - 117 U/L [facility] AST (SGOT) 22 1 - 40 U/L [facility] ALT (SGPT) 25 1 - 41 U/L [facility] Blood 01/10/2023 8:31 AM EDT 01/10/2023 Narrative [facility] ([facility]) - 01/11/2023 3:07 AM EDT Performed at: ?? - [address] ??[id number] Cosmetic Manager: Keanu Roy MD, Phone: ??[phone] Patient Fasting: ??N us Keanu Brooks DO LAB BLOOD ORDERABLES Final R esult [facility] ([facility]) [address] [place] [address], [place] [phone] [facility] [address] [place] [address], [place] [phone] documented in this encounter Visit Diagnoses Diagnosis Wellness examination- Primary Other insomnia Hypogonadism in male Stage 3a chronic kidney disease Primary hypertension Unspecified essential hypertension Obesity (BMI 30-39.9) Benign prostatic hyperplasia without lower urinary tract symptoms Dyslipidemia Other and unspecified hyperlipidemia Idiopathic chronic gout of multiple sites without tophus documented in this encounter Care Teams Pmo Project Manager Relationship Specialty Start Date End Date Keanu Brooks DO [address] [facility] [address] [place] [address] PCP - General Family Medicine 12/11/18 documented as of this encounter
--- OUTSIDE RECORDS SUMMARY | 2024-10-10 22:50 | XMS_ITS | Encounter Summary ---
[facility] [address] [place] [address] Care Team Providers Care Automatic Pilot Mechanic Name Role Phone Keanu Brooks DO Primary Care Provider + [phone] Reason for Visit * Reason Comments Hypogonadism Hypertension Hyperlipidemia Encounter Details Date Type Department Care Team (Late st Contact Info) Description 06/28/2022 8:45 AM EDT Office Visit [facility] [address] [phone] Keanu Brooks DO [address] [id number] Essential hypertension (Primary Dx); Idiopathic chronic gout of multiple sites without tophus; Dyslipidemia; Hypogonadism in male; Benign prostatic hyperplasia without lower urinary tract symptoms; Class 1 obesity due to excess calories [...] Sign Reading Time Taken Comments Blood Pressure 118/82 06/28/2022 8:41 AM EDT Pulse 86 06/28/2022 8:41 AM EDT Temperature - - Respiratory Rate - - Oxygen Saturation 98% 06/28/2022 8:41 AM EDT Inhaled Oxygen Concentration - - Weight 90.3 kg (199 lb) 06/28/2022 8:41 AM EDT Height 172.7 cm (5' 8 ) 06/28/2022 8:41 AM EDT Body Mass Index 30.26 06/28/2022 8:41 AM EDT documented in this encounter Patient Instructions * Patient Instructions* Keanu Brooks, - 06/28/2022 8:45 AM EDT 7-1-3-Almost None! Healthy Habits Start Early EAT 5 [...] television and other screen media. Screen media includes[employer] games, movies and computer use for entertainment. [...] Progress Notes * Keanu Brooks DO - 06/28/2022 8:45 AM EDT Subjective Yovanny Steve is a 61 y.o. male. Presents today for Chief Complaint Patient presents with ??? Hypogonadism ??? Hypertension ??? Hyperlipidemia History of Present Illness Patient 61 y/o male s/p LUCERO this past March, on medical leave; Has hx of gout, bu tno attacks on allopurinol, due labs; Has htn stable on meds; Hypogonadism doing well on testosterone. Due check lipids; Doing very well after LUCERO bilateral. Review of Systems Respiratory: Negative for shortness of breath. Cardiovascular: Negative for chest pain and palpitations. Gastrointestinal: Negative for abdominal pain. Patient Active Problem List Diagnosis ??? Asthma ??? ED (erectile dysfunction) ??? Hypertension ??? Sleep apnea ??? Primary osteoarthritis of hips, bilateral ??? Stage 3a chronic kidney disease (HCC) ??? Status post total replacement of both [...] TABLET BY MOUTHDAILY 30 tablet 3 ??? montelukast (SINGULAIR) 10 MG tablet Take 1 tablet by mouth Daily. ??? sertraline (Zoloft) 25 MG tablet Take [...] on file prior to visit. Objective Vitals: 06/28/22 0841 BP: 118/82 Pulse: 86 SpO2: 98% Weight: 90.3 kg (199 lb) Height: 172.7 cm (68 ) Body mass index is 30.26 kg/m??. BMI above goal, educational material on diet and exercise providedin AVS. Physical Exam Vitals and nursing note reviewed. [...] for this visit: 1. Essential hypertension (Primary) - Comprehensive Metabolic Panel 2. Idiopathic chronic gout of multiple sites without tophus - Uric Acid 3. Dyslipidemia - Lipid Panel 4. Hypogonadism in male - Comprehensive Metabolic Panel - Testosterone - PSA DIAGNOSTIC - CBC & Differential 5. Benign prostatic hyperplasia without lower urinary tract symptoms - PSA DIAGNOSTIC 6. Class 1 obesity due to excess calories with serious comorbidity and body mass index (BMI) of 30.0 to 30.9 in adult -hypertension - controlled, continue medications -I explained at length to patient risks of replacement that can include acne, mood changes, cardiovascular disease, polycythemia and liver dysfunction. I also warned about concerns regarding prostateand breast cancer. I discussed with potential for improvement in fatigue and preventing osteoporosis. I discussed will need to monitor labs regularly. -hld - due recheck -due check uric acid -due checks PSA -Follow up: 6 months and prn documented in this encounter Plan of Treatment Upcoming Encounters Date Type Department Care Team (Late st Contact Info) Description 01/17/2025 9:00 AM EDT Office Visit [facility] [address] [phone] Keanu Brooks DO [address] [phone] documented as of this encounter Visit Diagnoses Diagnosis Essential hypertension- Primary Unspecified essential hypertension Idiopathic chronic gout of multiple sites without tophus Dyslipidemia Other and unspecified hyperlipidemia Hypogonadism in male Benign prostatic hyperplasia without lower urinary tract symptoms Class 1 obesity due to excess calories with serious comorbidity and body mass index (BMI) of 30.0 to 30.9 in adult documented in this encounter Care Teams Automatic Pilot Mechanic Relationship Specialty Start Date End Date Keanu Brooks DO [address] [phone] PCP - General Family Medicine 12/11/18 documented as of this encounter
--- OUTSIDE RECORDS SUMMARY | 2024-10-10 22:50 | XMS_ITS | Encounter Summary ---
Author Organization [facility] yste Address [address] [place] [address] Care Team Providers Care Solutions Executive Security Name Role Phone Keanu Giraldo DO Primary Care Provider + [phone] Reason for Visit * Reason Onset Date Comments MEDICATION CONCERN 03/03/2023 Encounter Details Date Type Department Care Team (Late st Contact Info) Description 03/03/2023 Telephone [facility] [address] [phone] Keanu Giraldo DO [address] [phone] MEDICATION CONCERN Social History Tobacco Use Types Packs/Day Years [...] Telephone Encounter - Maday Ferguson MA - 03/03/2023 3:21 PM EDT Pt is aware and I also sent [employer] message with message for pt to see * Telephone Encounter - Paty Mackey RegSched Rep - 03/03/2023 8:13 AM EDT PATIENT STATES HE HAS DOUBLED HIS TRAZADONE AND IS STILL NOT SLEEPING, HE MAY SLEEP TWO HOURS AND HE MAY NOT SLEEP AT ALL. HE STATES THAT HE HAS BEEN TAKING 3 OF HIS sertraline (ZOLOFT) 25 MG tablet AND HE IS STILL HAVING ANXIETY ATTACKS. HE IS CALLING BECAUSE HE WANTS DR. GIRALDO TO SEND SOMETHINGELSE TO THE PHARMACY FOR HIM. PLEASE ADVISE. documented in this encounter Plan of Treatment Upcoming Encounters Date Type Department Care Team (Late st Contact Info) Description 01/17/2025 9:00 AM EDT Office Visit [facility] [address] [phone] Keanu Giraldo DO [address] [address] documented as of this encounter Visit Diagnoses Not on filedocumented in this encounter Care Teams Solutions Executive Security Relationship Specialty Start Date End Date Keanu Giraldo DO [address] [address] PCP - General Family Medicine 12/11/18 documented as of this encounter
--- OUTSIDE RECORDS SUMMARY | 2024-10-10 22:50 | XMS_ITS | Encounter Summary ---
[facility] Address [address] [place] [address] Care Team Providers Care Vehicle Painter Name Role Phone Keanu Brooks DO Primary Care Provider + [phone] Reason for Visit * Reason Comments Med Refill Encounter Details Date Type Department Care Team (Late st Contact Info) Description 03/22/2022 Refill [facility] [address] [phone] Keanu Brooks DO [address] [phone] Social History Tobacco Use Types Packs/Day Years [...] [facility] [address] [phone] Keanu Brooks DO [address] [employer] [address] documented as of this encounter Visit Diagnoses Not on filedocumented in this encounter Care Teams Vehicle Painter Relationship Specialty Start Date End Date Keanu Brooks DO [address] [place] [address] PCP - General Family Medicine 12/11/18 documented as of this encounter
--- OUTSIDE RECORDS SUMMARY | 2024-10-10 22:50 | XMS_ITS | Encounter Summary ---
Author Organization [facility] yste Address [address] [place] [address] Care Team Providers Care Director Of Partner Marketing Name Role Phone Keanu Brooks DO Primary Care Provider + [phone] Reason for Visit * Reason Onset Date Comments Med Refill 08/15/2023 Encounter Details Date Type Department Care Team (Late st Contact Info) Description 08/15/2023 Refill [facility] [address] [phone] Keanu Brooks DO [address] [phone] Hypogonadism in male (Primary Dx); Primary hypertension; Idiopathic chronic gout of multiple sites without tophus; MAITE (generalized anxiety disorder); Essential hypertension; Other insomnia; Other male erectile dysfunction Social History Tobacco [...] Telephone Encounter - Maday Ferguson MA - 09/15/2023 1:26 PM EST 06/03/23 * Telephone Encounter - Vicky Lees RegSched Rep - 09/15/2023 10:37 AM EST Caller: Yovanny Steve Relationship: Self Best call back number: [phone] What is the best time to reach you: ANY Who are you requesting to speak with (clinical staff, provider, specific staff member): CLINICAL STAFF Do you know the name of the person who called: What was the call regarding: PATIENT CALLED CHECKING ON THE MEDICATION REFILL THAT HE SUBMITTED ON 08/15/23 DUE TO PHARMACY CHANGE AND INSURANCE CHANGE. PLEASE LET PATIENT KNOW WHEN THIS WILL BE CALLED INTO THE NEW MAIL SERVICE PHARMACY DUE TO HE NEEDS TO GET THIS SUBMITTED SO THAT THEY CAN START FILLING HIS MEDICATION. Is it okay if the provider responds through [employer]: YES * Telephone Encounter - Vicky Lees RegSched Rep - 08/15/2023 11:33 AM EST Caller: Yovanny Steve Relationship: Self Best call back number: [phone] Requested Prescriptions: Requested Prescriptions Pending Prescriptions Disp Refills albuterol sulfate HFA 108 (90 Base) MCG/ACT inhaler 68 g 3 Sig: Inhale 2 puffs Every 4 (Four) Hours As Needed for Wheezing. allopurinol (ZYLOPRIM) 300 MG tablet 90 tablet 3 Sig: Take 1 tablet by mouth Daily. Dulera 200-5 MCG/ACT inhaler 13 g 11 Sig: Inhale 2 puffs 2 (Two) Times a Day. fluticasone (FLONASE) 50 MCG/ACT nasal spray 48 g 3 Si sprays by Each Nare route Daily. hydrOXYzine (ATARAX) 10 MG tablet 45 tablet 2 Sig: Take 1 tablet by mouth 3 (Three) Times a Day As Needed for Anxiety (sleep). lisinopril-hydrochlorothiazide (PRINZIDE,ZESTORETIC) 20-25 MG per tablet 90 tablet 3 Sig: Take 1 tablet by mouth Daily. traZODone (DESYREL) 150 MG tablet 14 tablet 0 Sig: Take 1 tablet by mouth Every Night. Spiriva Respimat 2.5 MCG/ACT aerosol solution inhaler 1 g 0 Sig: Inhale 2 puffs Daily. tadalafil (CIALIS) 20 MG tablet 90 tablet 3 Sig: Take 1 tablet by mouth Daily As Needed for Erectile Dysfunction. Testosterone Cypionate (DEPOTESTOTERONE CYPIONATE) 200 MG/ML injection 3 Pharmacy where request should be sent: [facility] [place] - [facility] TO REGISTERED [facility] - [phone] - [phone] FX Last office visit with prescribing clinician: 01/10/2023 Last telemedicine visit with prescribing clinician: Visit date not found Next office visit with prescribing clinician: 01/16/2024 Additional details provided by patient: WILL NEED NEW PRESCRIPTION DUE TO PHARMACY CHANGE AND INSURANCE CHANGE. PATIENT ALSO STATED THE MEDICATION traZODone (DESYREL) 150 MG tablet HE NEEDS THE BRANDTEVA WHEN ORDERED. WANTS 90 DAY SUPPLY. Does the patient have less than a 3 day supply: [] Yes [x] No Would you like a call back once the refill request has been completed: [] Yes [] No If the office needs to give you a call back, can they leave a voicemail: [] Yes [] No Domingo Paz Rep 08/15/23 11:38 EST documented in this encounter Plan of Treatment Upcoming Encounters Date Type Department Care Team (Late st Contact Info) Description 01/17/2025 9:00 AM EDT Office Visit [facility] [address] [place] [address] Keanu Brooks DO [address] [address] documented as of this encounter Visit Diagnoses Diagnosis Hypogonadism in male- Primary Primary hypertension Unspecified essential hypertension Idiopathic chronic gout of multiple sites without tophus MAITE (generalized anxiety disorder) Generalized anxiety disorder Essential hypertension Unspecified essential hypertension Other insomnia Other male erectile dysfunction documented in this encounter Care Teams Director Of Partner Marketing Relationship Specialty Start Date End Date Keanu Brooks DO [address] [place] [address] PCP - General Family Medicine 12/11/18 documented as of this encounter
--- OUTSIDE RECORDS SUMMARY | 2024-10-10 22:50 | XMS_ITS | Encounter Summary ---
Author Organization [facility] ystem Address [address] [place] [address] Care Team Providers Care Sfdc Solution Architect Name Role Phone Keanu Brooks DO Primary Care Provider + [phone] Reason for Visit * Reason Comments Med Refill Encounter Details Date Type Department Care Team (Late st Contact Info) Description 11/03/2020 Refill [facility] [address] [phone] Keanu Brooks DO [address] [employer] [address] [place], [place] [phone] Other male erectile dysfunction Social History Tobacco [...] Telephone Encounter - Maday Ferguson MA - 11/03/2020 7:35 AM EST 09/02/20 documented in this encounter Plan of Treatment Upcoming Encounters Date Type Department Care Team (Late st Contact Info) Description 01/17/2025 9:00 AM EDT Office Visit [facility] [address] [place] [address] Keanu Brooks DO [address] [address] documented as of this encounter Visit Diagnoses Diagnosis Other male erectile dysfunction documented in this encounter Care Teams Sfdc Solution Architect Relationship Specialty Start Date End Date Keanu Brooks DO [address] [address] PCP - General Family Medicine 12/11/18 documented as of this encounter
--- OUTSIDE RECORDS SUMMARY | 2024-10-10 22:50 | XMS_ITS | Encounter Summary ---
[facility] [address] [place] [address] Care Team Providers Care Composition Mixer Name Role Phone Keanu Brooks DO Primary Care Provider + [phone] Reason for Visit * Reason Onset Date Comments Med Refill 06/25/2020 Encounter Details Date Type Department Care Team (Late st Contact Info) Description 06/25/2020 Refill [facility] [email or web address] [address] [phone] Keanu Brooks DO [address] [address] Other insomnia Social History Tobacco [...] 01/17/2025 9:00 AM EDT Office Visit [facility] [address] [employer] [phone] Keanu Brooks DO [address] [address] documented as of this encounter Visit Diagnoses Diagnosis Other insomnia documented in this encounter Care Teams Composition Mixer Relationship Specialty Start Date End Date Keanu Brooks DO [address] [place] [address] PCP - General Family Medicine 12/11/18 documented as of this encounter
--- OUTSIDE RECORDS SUMMARY | 2024-10-10 22:50 | XMS_ITS | Clinical Summary ---
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 He is advancing activities without significant setbacks. May continue activities as tolerated without restriction. Slow progressive return encouraged. Follow up as needed. Of note, he is interested in a followup for his bilateral knees. He has been receiving gel injections by an outside provider. I am happy to see him back at his convenience. - Last Documented On 02/28/2024 8:06AM ; [facility] Education and Decision Aids were provided during visit for: Discussed maintaining health y weight Last Documented On 9:25AM ; [facility] Assessments Includes: Assessments from this encounter Findings 6 months status post left shoulder rotator cuff repair with Regeneten patch, biceps tenodesis on 08/23/2023. - Last Documented On 02/28/2024 8:06AM ; [facility] Instructions Includes: Instructions from this encounter Education and Decision Aids were provided during visit for: Discussed maintaining health y weight Last Documented On 4 9:25AM ; [facility] Medical Equipment - Implanted Devices Includes: Current Devices No Medical Equipment Recorded Medications Includes: Medications discussed during this encounter and other current Medications Current Medications (continue as prescribed) Tylenol Extra Strength 500 MG Oral Tablet 04/30/2022 Provider: Diagnosis: Last Documented On 2 8:31AM By Sandee Jauregui ATC ; [facility] Fluticasone Propionate 50 MCG/ACT Nasal Suspension 04/2021 Provider: Diagnosis: Last Documented On 9:03AM By Paty [facility], [facility] ProAir HFA 108 (90 Base) MCG/ACT Inhalation Aero melvina Solution 05/26/2021 Provider: Diagnosis: Last Documented On 1 9:03AM By Paty [facility], [facility] Lisinopril-hydroCHLOROthiazide 20-25 MG Oral Tablet Provider: Diagnosis: Last Documented On 1 9:03AM By Paty [facility], [facility] Allopurinol 300 MG Oral Tablet 05/22/2021 Provider: Diagnosis: Last Documented On 1 9:03AM By Paty [facility], [facility] Trazadone 50 MG Tablet 11/12/2016 Provider: Diagnosis: Last Documented On 7 8:55AM By Renetta [facility] Past Medications on file Durolane 60 MG/3ML Intra-articular Prefilled Syringe 03/19/2024 - 04/18/2024 Provider: Donald Josue MD Diagnosis: Bilateral primar y osteoarthritis of knee Inject intra-articularly int o bilateral knees in office Last Documented On 4 11:37AM By Marjan Sandoval ; [facility] oxyCODONE-Acetaminophen 5-32 5 MG Oral Tablet 08/24/2023 - 08/31/2023 Provider: Donald Josue MD Diagnosis: i po q6 hrs prn Last Documented On 3 12:19PM By Donald Josue MD ; [facility] HYDROcodone-Acetaminophen 5- 325 MG Oral Tablet 08/16/2023 - 08/23/2023 Provider: Donald Josue MD Diagnosis: i po q 4 hrs prn pain AFTER surgery Last Documented On 3 1:29PM By Donald Josue MD ; [facility] Eliquis 2.5 MG Oral Tablet 03/12/2022 - 04/09/2022 Pro vider: Cholo Dotson MD Diagnosis: 1 tablet po twice a day x 4 weeks AFTER surgery Last Documented On 2 10:05AM By Paty Borges ; [facility] Medications Administered Includes: Administered Medications from this encounter No Administered Medications Recorded Results Includes: Results discussed during this encounter No Results Recorded For Specified Dates History of Present Illness Includes: History of Present Illness from this encounter HPI Patient presents today almost 6 months status post left shoulder rotator cuff repair with biceps tenodesis on 08/23/2023. He is no longer doing formal physical therapy but continues with at home exercises. He denies any swelling, bruising, redness, numbness, and tingling. He states he has a great range of motion. He is very happy with his surgery and recovery with no concerns today. 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 Last Documented On 4 8:06AM ; [facility] Smoking status : Former smoker 2 Last Documented On 4 9:24AM ; [facility] Current nonsmoker 06/26/2021 Last Documented On 4 9:24AM ; [facility] Tobacco non-user 06/26/2021 Last Documented On 4 9:24AM ; [facility] Alcohol use: 2 drinks or less per day Last Documented On 4 9:24AM ; [facility] Has high school diploma 06/26/2021 Last Documented On 4 9:24AM ; [facility] Marital history single 06/26/2021 Last Documented On 4 9:24AM ; [facility] 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 Last Documented On 4 9:24AM ; [facility] Not using alcohol 11/12/2016 Last Documented On 4 9:24AM ; [facility] Preference for right-handedness 11/12/19 17 Last Documented On 4 9:24AM ; [facility] Procedures and Surgical History Includes: Procedures from this encounter Procedures Code Diagnosis Performing Provider Service L ocation Service Date use of tobacco assessment performed 1000F Last Documented On 4 9:25AM ; [facility] Surgical History Last Updated History of rotator cuff repair left with biceps tenodesis 08/31/2023 Last Documented On 4 9:24AM ; [facility] History of total left hip replacement 08/2022 (Schaper) 04/30/2022 Last Documented On 4 9:24AM ; [facility] History of total right hip replacement (Schaper) 04/30/2022 Last Documented On 4 9:24AM ; [facility] History of back surgery 11/12/2016 Last Documented On 4 9:24AM ; [facility] History of neck surgery 11/12/2016 Last Documented On 4 9:24AM ; [facility] History of surgery of the left knee - Ar throscopy 11/12/2016 Last Documented On 4 9:24AM ; [facility] Medical History Includes: Medical History addressed during this encounter Description Last Updated History of gout 06/26/2021 Last Documented On 4 9:24AM ; [facility] Currently wearing eyeglasses 06/26/2021 Last Documented On 4 9:24AM ; [facility] Surgical history reviewed 11/12/2016 Last Documented On 4 9:24AM ; [facility] Family history reviewed 11/12/2016 Last Documented On 4 9:24AM ; [facility] History of asthma 11/12/2016 Last Documented On 4 9:24AM ; [facility] History of hypertension 11/12/2016 Last Documented On 4 9:24AM ; [facility] Past medical history reviewed 11/12/2016 Last Documented On 4 9:24AM ; [facility] Family History Includes: Family History addressed during this encounter Description Last Updated none 06/26/2021 Last Documented On 4 9:24AM ; [facility] Review of Systems Includes: Review of [...] Location Date Check-In Time Check-Out Time Diagnosis Standard Follow Up Visit Donald Josue MD [facility] 02/17/20 24 9:14AM 9:48AM Insurance Includes: Active Insurance Policies Plan Name Member ID Group # Subscriber Relationship Effect melba Dates 1 - [employer]na Medicare [id number] Yovanny Hyde High Self 07/20/2023 - Unknown Clinical Notes Includes: Clinical Notes from this encounter * Progress note Date Encounter Last Documented by 02/17/2024 Standard Follow Up Visit Last do cumented on 02/28/2024; 8:06 AM, Donald Josue MD; [facility] Chief Complaint Left shoulder pain. History of [...] Education: Has high school diploma. 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 Motor: Preference for [...]
--- OUTSIDE RECORDS SUMMARY | 2024-10-10 22:50 | XMS_ITS | Encounter Summary ---
Author Organization [facility] Address [address] [place] [address] Care Team Providers Care Patient Coordinator Front Desk Name Role Phone Keanu Brooks DO Primary Care Provider + [phone] Encounter Details Date Type Department Care Team (Late st Contact Info) Description 01/12/2023 Patient rounding ([facility]) [facility] [address] [employer] Sho[employer] Cart Software [facility] [address] [place] [id number] Keanu Brooks DO [address] [employer] [facility] [address] [place], [place] [id number] Social History Tobacco Use Types Packs/Day Years [...] as of this encounter Progress Notes * Anju Mcneil RegSched Rep - 01/12/2023 8:51 AM EDT A Bacula message has been sent to the patient for PATIENT ROUNDING with [facility]. documented in this encounter Plan of Treatment Upcoming Encounters Date Type Department Care Team (Late st Contact Info) Description 01/17/2025 9:00 AM EDT Office Visit [facility] [address] [phone] Keanu Brooks DO [address] [address] documented as of this encounter Visit Diagnoses Not on filedocumented in this encounter Care Teams Patient Coordinator Front Desk Relationship Specialty Start Date End Date Keanu Brooks DO [address] [address] PCP - General Family Medicine 12/11/18 documented as of this encounter
--- OUTSIDE RECORDS SUMMARY | 2024-10-10 22:50 | XMS_ITS | Encounter Summary ---
Author Organization [facility] yste Address [address] [place] [address] Care Team Providers Care Cartographic Engineer Name Role Phone Keanu Brooks DO Primary Care Provider + [phone] Reason for Visit * Reason Onset Date Comments med request 07/10/2020 Encounter Details Date Type Department Care Team (Late st Contact Info) Description 07/10/2020 Telephone [facility] [address] [phone] Keanu Brooks DO [address]ext [facility] [address] [place], [place] [id number] med request Social History Tobacco Use Types Packs/Day Years [...] Telephone Encounter - Maday Ferguson MA - 07/10/2020 2:24 PM EDT Pt is aware. * Telephone Encounter - Keanu Brooks DO - 07/10/2020 1:57 PM EDT I sent in something to start and can adjust at 08/01/20 appt; If thoughts of self harm, seek care immediately. RRJ * Telephone Encounter - Maday Ferguson MA - 07/10/2020 12:14 PM EDT Please advise. * Telephone Encounter - Pamela Brooks RegSched Rep - 07/10/2020 11:00 AM EDT Patient called and stated that he is having a hard time and is requesting an antidepressant. Patient stated he is breaking down a lot and is having a hard time sleeping. Offered patient appt and did not have anything available until after his already scheduled appt. Patient doesn't think it can wait to be addressed until then and would like to be worked in or something be sent to [facility]/pharmacy #[id number] AT [facility] - [phone] [facility] [phone] FX?? Please advise [phone] documented in this encounter Plan of Treatment Upcoming Encounters Date Type Department Care Team (Late st Contact Info) Description 01/17/2025 9:00 AM EDT Office Visit [facility] [address] [address] Keanu Brooks DO [address] [phone] documented as of this encounter Visit Diagnoses Not on filedocumented in this encounter Care Teams Cartographic Engineer Relationship Specialty Start Date End Date Keanu Brooks DO [address] [address] PCP - General Family Medicine 12/11/18 documented as of this encounter
--- OUTSIDE RECORDS SUMMARY | 2024-10-10 22:50 | XMS_ITS | Encounter Summary ---
Author Organization [facility] y[facility] Address [address] [place] [address] Care Team Providers Care Mainspring Torque Tester Name Role Phone Keanu Brooks DO Primary Care Provider + [phone] Reason for Visit * Reason Comments Med Refill Encounter Details Date Type Department Care Team (Late st Contact Info) Description 09/01/2020 Refill [facility] [address] [employer] Work Study [address] [place] [address] Keanu Brooks DO [address] Step On Up Graphics [address] [place] [address] Social History Tobacco Use Types Packs/Day [...] Telephone Encounter - Maday Ferguson MA - 09/01/2020 8:15 AM EST Has appt today documented in this encounter Plan of Treatment Upcoming Encounters Date Type Department Care Team (Late st Contact Info) Description 01/17/2025 9:00 AM EDT Office Visit [facility] [address]rec[address] [address] Keanu Brooks DO [address] [address] documented as of this encounter Visit Diagnoses Not on filedocumented in this encounter Care Teams Mainspring Torque Tester Relationship Specialty Start Date End Date Keanu Brooks DO [address] [address] PCP - General Family Medicine 12/11/18 documented as of this encounter
--- OUTSIDE RECORDS SUMMARY | 2024-10-10 22:50 | XMS_ITS | Encounter Summary ---
[facility] Address [address] [place] [address] Care Team Providers Care Engineering Mgr Name Role Phone Keanu Brooks DO Primary Care Provider + [phone] Reason for Visit * Reason Comments Med Refill Encounter Details Date Type Department Care Team (Late st Contact Info) Description 05/20/2021 Refill [facility] [address] [address] Keanu Brooks DO [address] [address] Other insomnia Social History Tobacco [...] Description 01/17/2025 9:00 AM EDT Office Visit [facility] [address] [address] Keanu Brooks DO [address] [address] documented as of this encounter Visit Diagnoses Diagnosis Other insomnia documented in this encounter Care Teams Engineering Mgr Relationship Specialty Start Date End Date Keanu Brooks DO [address] [place] [address] PCP - General Family Medicine 12/11/18 documented as of this encounter
--- OUTSIDE RECORDS SUMMARY | 2024-10-10 22:50 | XMS_ITS | Clinical Summary ---
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 Cholo Dotson MD Active Last Documented On 7 10:00AM ; [facility] 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, left femur 11/13/2016 Cholo Dotson MD Active Last Documented On 7 10:00AM ; [facility] Plan of Treatment No Plan of Treatment Recorded Assessments Includes: Assessments from this encounter No Assessments Recorded Medical Equipment - Implanted Devices Includes: Current Devices No Medical Equipment Recorded Medications Includes: Medications discussed during this encounter and other current Medications New / Renewed during this visit Donald Josue MD on 03/19/2024 Durolane 60 MG/3ML Intra-articular Prefilled Syringe Provider: Donald Josue MD 30 day supply: 6 mL, 0 refills Diagnosis: Bilateral primary osteoarthritis of knee Inject intra-articularly int o bilateral knees in office Pharmacy: [facility] - [address] [place] [address] [facility] [address] [facility] Last Documented On 4 11:37AM By Marjan Sandoval ; [facility] Current Medications (continue as prescribed) Tylenol Extra Strength 500 MG Oral Tablet 04/30/2022 Provider: Diagnosis: Last Documented On 2 8:31AM By Sandee Jauregui ATC ; [facility] Fluticasone Propionate 50 MCG/ACT Nasal Suspension 04/2021 Provider: Diagnosis: Last Documented On 1 9:03AM By Paty Eagle ; [facility] ProAir HFA 108 (90 Base) MCG/ACT Inhalation Aero melvina Solution 05/26/2021 Provider: Diagnosis: Last Documented On 1 9:03AM By Paty Eagle ; [facility] Lisinopril-hydroCHLOROthiazide 20-25 MG Oral Tablet Provider: Diagnosis: Last Documented On 1 9:03AM By Paty Eagle ; [facility] Allopurinol 300 MG Oral Tablet 05/22/2021 Provider: Diagnosis: Last Documented On 1 9:03AM By Paty Eagle ; [facility] Trazadone 50 MG Tablet 11/12/2016 Provider: Diagnosis: Last Documented On 7 8:55AM By Renetta Brown ; [facility] Medications Administered Includes: Administered Medications from this [...] Location Date Check-In Time Check-Out Time Diagnosis Medication Donald Alfredo Sinicrope MD 03/19/2024 11:36AM 11:59PM Insurance Includes: Active Insurance Policies Plan Name Member ID Group # Subscriber Relationship Effect melba Dates 1 - Aetna Medicare [id number] Yovanny Chopra 07/20/2023 - Unknown Clinical Notes Includes: Clinical Notes from this encounter No Clinical Notes Recorded
--- OUTSIDE RECORDS SUMMARY | 2024-10-10 22:50 | XMS_ITS | Encounter Summary ---
[facility] Address [address] [place] [address] Care Team Providers Care Marketing Account Manager Name Role Phone Keanu Brooks DO Primary Care Provider + [phone] Reason for Visit * Reason Comments Med Refill Encounter Details Date Type Department Care Team (Late Contact Info) Description 11/13/2021 Refill [facility] [address] [address] Keanu Brooks DO [address] [employer] [address] [address] Other male erectile dysfunction Social [...] 01/17/2025 9:00 AM EDT Office Visit [facility] [address] [address] Keanu Brooks DO [address] [address] documented as of this encounter Visit Diagnoses Diagnosis Other male erectile dysfunction documented in this encounter Care Teams Marketing Account Manager Relationship Specialty Start Date End Date Keanu Brooks DO [address] [place] [address] PCP - General Family Medicine 12/11/18 documented as of this encounter
--- OUTSIDE RECORDS SUMMARY | 2024-10-10 22:50 | XMS_ITS | Encounter Summary ---
[facility] Address [address] [place] [address] Care Team Providers Care Transportation Maintenance Specialist Name Role Phone Keanu Brooks DO Primary Care Provider + [phone] Reason for Visit * Reason Comments Med Refill Encounter Details Date Type Department Care Team (Late st Contact Info) Description 11/29/2022 Refill [facility] [address]Notes [address] [address] Keanu Brooks DO [address]Notes [address] [address] Essential hypertension; Generalized anxiety disorder; Primary hypertension; Idiopathic chronic gout of multiple [...] Description 01/17/2025 9:00 AM EDT Office Visit [facility] [address] [address] Keanu Brooks DO [address] [address] documented as of this encounter Visit Diagnoses Diagnosis Essential hypertension Unspecified essential hypertension Generalized anxiety disorder Primary hypertension Unspecified essential hypertension Idiopathic chronic gout of multiple sites without tophus documented in this encounter Care Teams Transportation Maintenance Specialist Relationship Specialty Start Date End Date Keanu Brooks DO [address] [place] [address] PCP - General Family Medicine 12/11/18 documented as of this encounter
--- OUTSIDE RECORDS SUMMARY | 2024-10-10 22:51 | XMS_ITS | Encounter Summary ---
Author Organization [facility] Address [address] [place] [address] Care Team Providers Care Chipper Operator Name Role Phone Keanu Brooks DO Primary Care Provider + [phone] Encounter Details Date Type Department Care Team (Late st Contact Info) Description 11/19/2019 Telephone [facility] [address] [address] Keanu Brooks DO [address] [phone] Social History Tobacco Use Types Packs/Day Years [...] Telephone Encounter - Maday Ferguson MA - 11/20/2019 2:32 PM EST Med sent to pharmacy and pt is aware. * Telephone Encounter - Keanu Brooks DO - 11/20/2019 1:28 PM EST Ok increase to 100mg 1.5 tabs daily * Telephone Encounter - Maday Ferguson MA - 11/19/2019 12:37 PM EST Please advise. documented in this encounter Plan of Treatment Upcoming Encounters Date Type Department Care Team (Late st Contact Info) Description 01/17/2025 9:00 AM EDT Office Visit [facility] [address] [phone] Keanu Brooks DO [address] [address] documented as of this encounter Visit Diagnoses Not on filedocumented in this encounter Care Teams Chipper Operator Relationship Specialty Start Date End Date Keanu Brooks DO [address] [address] PCP - General Family Medicine 12/11/18 documented as of this encounter
--- OUTSIDE RECORDS SUMMARY | 2024-10-10 22:51 | XMS_ITS | Encounter Summary ---
Author Organization [facility] [place] [address] Care Team Providers Care Grommet Machine Operator Name Role Phone Keanu Brooks Ar Primary Care Provider [phone] Reason for Visit * Auth/Cert (Routine) Specialty Diagnoses / Procedures Referred By Contac t Referred To Contact Diagnoses Strain of musc/tend the rotator cuff of left shoulder, init [S46.012A] Procedures ARTHROSCOPIC REPAIR ROTATOR CUFF Referral ID Status Reason Start Date Expiration Date Visits Re quested Visits Authorized [id number] 1 1 Encounter Details Date Type Department Care Team (Late st Contact Info) Description 08/19/2023 1:43 PM EST Anesthesia Event [facility] Periop Services [address] [place] [address] Nico Randall MD [address] [facility] [address] [place] [address] Laney Sutton MD [address] [facility] [address] [place] [address] Anesthesia Record Procedure Summary Procedure Name Responsible Anesthesiologist Anesthesia Start Time Anesthesia Stop Time LEFT ARTHROSCOPIC REPAIR ROTATOR CUFF, BICEPS TENODESIS - CPT 84239, 60105 (Left) Nico Randall MD 08/19/23 1343 08/19/23 1544 Events Date Time Event Comment 08/19/2023 1143 1321 Block Performed 1343 Anesthesia in Room 1343 An Start 1343 An Start Data 1348 An Induction 1349 An Intubation 1525 An Emergence 1536 An Extubation 1538 Supp O2 1539 an stop data 1541 Anesthesia Handoff Montserrat Lum bley handed off to Recovery nurse. 1544 An Stop Meds Name Total ropivacaine 5 mg/mL (0.5%) 27 mL tranexamic acid 999.6 mg in sodium chlor florina 0.9 % 50 mL 1,000 mg propofol 10mg/ml inj 200 mg rocuronium 10mg/ml 50 mg Lido 2% 80 mg fentaNYL 0.05 mg/mL 100 mcg phenylephrine inj 300 mcg ceFAZolin 1 g 2 g sugammadex (BRIDION) 200 mg/2 mL inj 200 mg lactated ringers infusion 1,400 mL * Agents Name O2 Air Fi Sevoflurane Et Sevoflurane * Blood No blood administrations on file. Lines, Drains, and Airways Type Details Placement Removal Incision 03/30/22; Hip; Anter ior, Left; N/A 03/30/22 0000 by Eloisa Phillips RN Incision 03/30/22; Hip; Anter ior, Right; N/A 03/30/22 0000 by Eloisa Phillips RN Incision 08/19/23; 1427; Shou lder; Left 08/19/23 1427 by Heena Brown RN ADULT Peripheral IV Size: 20 G; Orientat ion: Anterior, Left, Proximal; Location: Forearm; Site Prep: Chlorhexidine ; Local Anesthetic: Injectable; Inserted by: BELINDA Mcleod; Insertion attempts: 3; Patient Tolerance: Tolerated well 08/19/23 1215 by Shani Oswald RN 08/19/23 1727 by Gladis Chisholm RN documented in this encounter Social History Tobacco Use Types Packs/Day Years Used Date Smoking Tobacco: Never Smokeless Tobacco: Never Alcohol Use Standard Drinks/Week Comments Yes 0 (1 standard drink = 0.6 oz pur e alcohol) socially Sex and Gender Information Value Date Recorded Sex Assigned at Not on file Legal Sex Male 4:52 PM EST Gender Identity Not on file Sexual Orientation Not on file documented as of this encounter Functional Status * Are You Deaf or do You Have Serious Difficulty Hearing? Answer Date of Assessment Author No 03/30/2022 4:27 PM EDT Kristy Love, BELINDA * Patient's Vision Adequate to Safely Complete Daily Activities Answer Date of Assessment Author Yes 03/30/2022 4:27 PM EDT Kristy Love RN * Do You Have Serious Difficulty Walking or Climbing Stairs? Answer Date of Assessment Author No 03/30/2022 4:27 PM EDT Kristy Love RN * Do You Have Difficulty Dressing or Bathing? Answer Date of Assessment Author No 03/30/2022 4:27 PM EDT Kristy Love RN * Because of a Physical, Mental, or Emotional Condition, Do You Have Serious Difficulty Concentrating, Remembering or Making a Decision? Answer Date of Assessment Author No 03/30/2022 4:27 PM EDT Kristy Love RN documented as of this encounter Mental Status * Because of a Physical, Mental or Emotional Problem, Do You Have Difficulty Doing Errands Alone Suchas Visiting a Doctor's Office or Shopping? Answer Entry Date Author No 03/30/2022 4:27 PM EDT Kristy Love RN documented in this encounter OR Notes * Anesthesia Postprocedure Evaluation - Montserrat Ho CRNA - 08/19/2023 3:49 PM EST Post-Anesthesia Evaluation Patient: Yovanny Steve Patient is stable postoperatively and has adequately recovered from anesthesia as described below unless otherwise noted. Patient is determined to have stable airway patency and respiratory function including respiratory rate and oxygen saturation. Patient has a stable heart rate, blood pressure and adequate hydration. Patient's mental status is acceptable. Patient's temperature is appropriate. Pain and nausea are adequately controlled. Vitals Value Taken Time BP 144/84 08/19/23 1543 Temp 36.2 ??C (97.2 ??F) 08/19/23 1543 Pulse 92 08/19/23 1543 Resp 17 08/19/23 1543 SpO2 7 % 08/19/23 1543 Temp src Temporal 08/19/23 1543 Anesthesia complications or comments: none * Anesthesia Procedure Notes - Nico Randall MD - 08/19/2023 1:20 PM ESTAssociated Order(s): Anesthesia Block Procedure: Anesthesia Block Reason for Block/Indications: at surgeon's request and post-op pain management The procedure and alternatives were discussed as well as all clinically relevant risks and benefits. All questions were answered. The patient (and/or proxy) agreed to proceed, informed consent obtained Sedation: IV sedation (NH 113-149 sec) (AUD,NWC,NBH, 123-172 sec) (Pediatric 89-169 sec)Laterality: Left Procedure timeout performed Procedure site has been marked and confirmed by Anesthesia Provider Patient position: Right lateral decubitus Prep: Chlorhexidine. Procedure Technique: Ultrasound guided, Nerve stimulator. Ultrasound used to visualize needle placement in proximity to nerve being blocked. Injection technique: Single-shot Needle type: Stimuplex Block: L. Interscalene Block / Supraclavicular block Indication: Surgeon requests peripheral nerve block for post-op pain control. Consent: The procedure and alternatives were discussed as well as all clinically relevant risks andbenefits. All questions were answered and the patient agreed to proceed. Timeout: Timeout was performed prior to the start of the procedure. Monitors: EKG, NIBP, SaO2. O2 per nasal cannula. Sedation: Sedation was given. Procedure: Type: L. Interscalene block Location: Left Position:RLD Prep: Chlorhexidine, sterile drape Technique: Ultrasound Approach: Interscalene Needle type: 21g stimulating nerve block needle Local anesthetic: Ropivacaine 0.5% with 1:300:000 Epinephrine Volume: 30 cc Dosin cc increments after negative aspiration Nerve targeted by u/s: Brachial plexus Post-op: The patient tolerated the procedure well and responsiveness was maintained. Ultrasound interpretation using ultrasound guidance of the needle and/or catheter was utilized. Thecatheter was placed in close proximity to the brachial plexus and spread of the local anesthetic was noted under direct ultrasound visualization without complication. Start time: 08/19/2023 1:05 PM End time: 08/19/2023 1:21 PM * Anesthesia Preprocedure Evaluation - Nico Randall MD - 08/19/2023 11:42 AM EST Images from the original note were not included. Relevant Problems OTHER (+) Asthma (+) Hypertension (+) Sleep apnea Review of Systems Patient summary reviewed. ECG reviewed. Allergies Reviewed: Patient has no known allergies. Pulmonary: Positive (+) for asthma and sleep apnea. Cardiovascular: Positive (+) for hypertension. GI: Positive (+) for chronic renal disease. Renal disease details: CRI. Musculoskeletal: Positive (+) for neuromuscular disease, cervical spine disease and osteoarthritis. Physical Exam Airway: Mallampati: I TM distance: >3 FB Neck ROM: Full Dental: Anesthesia Plan ASA: 3 Anesthesia Plan: general and regional Induction: Intravenous Maintenance: Inhalation Lines: BIS and PIV Premedication: Antiemetics, Reflux Meds, Fentanyl and Midazolam Planned Post Procedure Care: PACU Anesthetic Plan and Risks discussed with: Patient. Risk and benefits of anesthesia explained. Informed consent obtained. Plan discussed with: SALES AND CATERING COORDINATOR documented in this encounter Plan of Treatment Upcoming Encounters Date Type Department Care Team (Late st Contact Info) Description 01/24/2025 1:40 PM EDT Office Visit [facility] - [address] [address] Damien Cárdenas, TANG [address] [place] [address] documented as of this encounter Procedures Procedure Name Priority Date/Time Associated Diagnosis Comments ANESTHESIA BLOCK Routine 08/19/2023 1:20 PM EST documented in this encounter Results * Anesthesia Block (08/19/2023 1:20 PM EST) Narrative Nico Randall MD - 08/19/2023 1:20 PM EST Nico Randall MD ? 08/19/2023 ??1:21 PM Procedure: Anesthesia Block Reason for Block/Indications: at surgeon's request and post-op pain management The procedure and alternatives were discussed as well as all clinically relevant risks and benefits. ??All questions were answered. The patient (and/or proxy) agreed to proceed, informed consent obtained Sedation: IV sedation (NH 113-149 sec) (AUD,NWC,NBH, 123-172 sec) (Pediatric 89-169 sec)Laterality: Left ?? Procedure timeout performed Procedure site has been marked and confirmed by Anesthesia Provider Patient position: Right lateral decubitus Prep: Chlorhexidine. Procedure Technique: Ultrasound guided, Nerve stimulator. Ultrasound used to visualize needle placement in proximity to nerve being blocked. ?? Injection technique: Single-shot Needle type: Stimuplex ? Block: L. Interscalene Block / Supraclavicular block Indication: Surgeon requests peripheral nerve block for post-op pain control. Consent: ??The procedure and alternatives were discussed as well as all clinically relevant risks and benefits. ??All questions were answered and the patient agreed to proceed. Timeout: ??Timeout was performed prior to the start of the procedure. Monitors: ??EKG, NIBP, SaO2. ??O2 per nasal cannula. Sedation: ??Sedation was given. Procedure: ??Type: L. Interscalene block ? Location: Left ? Position:RLD ? Prep: ??Chlorhexidine, sterile drape ? Technique: ??Ultrasound ?Approach: ??Interscalene ?Needle type: ?? 21g stimulating nerve block needle ?Local anesthetic: ??Ropivacaine 0.5% with 1:300:000 Epinephrine ?Volume: ??30 cc ?Dosing: ??5 cc increments after negative aspiration ?Nerve targeted by u/s: ??Brachial plexus Post-op: The patient tolerated the procedure well and responsiveness was maintained. ?? Ultrasound interpretation using ultrasound guidance of the needle and/or catheter was utilized. ??The catheter was placed in close proximity to the brachial plexus and spread of the local anesthetic was noted under direct ultrasound visualization without complication. Start time: 08/19/2023 1:05 PM End time: 08/19/2023 1:21 PM us Nico Randall MD ANE ORDERABLES Final Result documented in this encounter Visit Diagnoses Not on filedocumented in this encounter Administered Medications Inactive Administered Medications - up to 3 most recent administrations Medication Order MAR Action Action Date Dose Rate Site ceFAZolin (ANCEF) injection Intravenous, PRN, Starting on Tue08/19/23 at 1338, Until Tue08/19/23 at 1549, Anesthesia Intra-op, Routine Given 08/19/2023 1:38 PM EST 2 g fentaNYL (PF) (SUBLIMAZE) injection Intravenous, PRN, Starting on Tue08/19/23 at 1348, Until Tue08/19/23 at 1549, Anesthesia Intra-op, Routine Given 08/19/2023 1:48 PM EST 100 mcg lactated ringers infusion Intravenous, at 25 mL/hr, Continuous, Starting on Tue08/19/23 at 1200, KVO, 1,000 mL, Until Tue08/19/23 at 1953, Pre-op, Routine New Bag 08/19/2023 2:48 PM EST 25 mL/hr Intraop Orders continued from Pre-op 08/19/2023 1:43 PM ES T 25 mL/hr New Bag 08/19/2023 12:24 PM EST 25 mL/hr lidocaine-PF (XYLOCAINE) 2 % injectable Epidural, PRN, Starting on Tue08/19/23 at 1348, Until Tue08/19/23 at 1549, Anesthesia Intra-op, Routine Given 08/19/2023 1:48 PM EST 80 mg phenylephrine (EUGENIA-SYNEPHRINE) injection Intravenous, PRN, Starting on Tue08/19/23 at 1416, Until Tue08/19/23 at 1549, Anesthesia Intra-op, Routine Given 08/19/2023 2:47 PM EST 100 mcg Given 08/19/2023 2:32 PM EST 100 mcg Given 08/19/2023 2:19 PM EST 50 mcg propofol (DIPRIVAN) 200 MG/20ML injection Intravenous, PRN, Starting on Tue08/19/23 at 1348, Until Tue08/19/23 at 1549, Anesthesia Intra-op, Routine Given 08/19/2023 1:48 PM EST 200 mg rocuronium (ZEMURON) injection Intravenous, PRN, Starting on Tue08/19/23 at 1348, Until Tue08/19/23 at 1549, Anesthesia Intra-op, Routine Given 08/19/2023 1:48 PM EST 50 mg ROPivacaine (NAROPIN) 0.5 % injection Injection, PRN, Starting on Tue08/19/23 at 1321, Until Tue08/19/23 at 1549, Anesthesia Intra-op, Routine Given 08/19/2023 1:21 PM EST 27 mLs sugammadex (BRIDION) injection Intravenous, PRN, Starting on Tue08/19/23 at 1520, Until Tue08/19/23 at 1549, Anesthesia Intra-op, Routine Given 08/19/2023 3:20 PM EST 200 mg tranexamic acid 999.6 mg in sodium chloride 0.9 % 50 mL Intravenous, Continuous PRN, Starting on Tue08/19/23 at 1405, 60 mL, Administer over 30 Minutes, Until Tue08/19/23 at 1549, Anesthesia Intra-op, Routine New Bag 08/19/2023 2:05 PM EST 1,000 mg documented in this encounter Care Teams Grommet Machine Operator Relationship Specialty Start Date End Date ToddKeanu DO Ar PCP - General Family Medicine 01/14/20 documented as of this encounter
--- OUTSIDE RECORDS SUMMARY | 2024-10-10 22:51 | XMS_ITS | Clinical Summary ---
Author Organization [facility] Address [address] [place] [address] Care Team Providers Care Transport Driver Name Role Phone Keanu Brooks DO Primary Care Provider [phone] Allergies No known active allergies Medications lisinopril-hyd rochlorothiazi de (PRINZIDE,ZEST ORETIC) 20-25 MG per tablet Take 1 tablet by mouth daily. Active albuterol (PROVENTIL HFA;VENTOLIN HFA) 108 (90 BASE) MCG/ACT inhaler Inhale 2 puffs into the lungs every 6 (six) hours as needed for Wheezing . Active allopurinol (ZYLOPRIM) 300 MG tablet Take 300 mg by mouth daily . 07/31/20 19 Active fluticasone (FLONASE) 50 MCG/ACT nasal spray Instill 2 sprays into nose 2 (two) times daily as needed for Allergies. 12/07/19 19 Active testosterone cypionate (DEPOTESTOTERO NE CYPIONATE) 200 MG/ML injection INJECT 0.5 ML INTO THE MUSCLE EVERY WEEK DIRECTED... NEEDS 18 G AND 22 G SYRINGES 5 06/23/20 19 Active tiotropium bromide monohydrate (SPIRIVA RESPIMAT) 2.5 MCG/ACT AERS Inhale 2 puffs into the lungs daily . 12/22/19 19 Active mometasone furo-formotero l (DULERA) 200-5 MCG/ACT AERO inhaler Inhale 2 puffs into the lungs 2 (two) times daily . 11/28/19 19 Active fexofenadine (GABBIE) 180 MG tablet Take 180 mg by mouth daily . 12/08/19 20 Active Multiple Vitamin (MULTIVITAMIN ADULT PO) Take 1 tablet by mouth daily. Active vitamin E 100 UNIT capsule Take 100 Units by mouth daily. Active traZODone (DESYREL) 300 MG tablet Take 300 mg by mouth nightly. Active budesonide-for moterol (SYMBICORT) 160-4.5 MCG/ACT inhaler Inhale 2 puffs into the lungs 2 (two) times daily. 10/09/19 24 Active fluticasone (FLONASE) 50 MCG/ACT nasal spray Instill 2 sprays into nose daily. 01/18/20 23 Active fluticasone-Sa lmeterol (WIXELA INHUB) 500-50 MCG/ACT AEPB inhaler Inhale 1 puff into the lungs 2 (two) times daily. 12/21/19 24 Active montelukast (SINGULAIR) 10 MG tablet Take 10 mg by mouth daily. 01/18/20 23 Active testosterone cypionate (DEPOTESTOTERO NE CYPIONATE) 200 MG/ML injection Inject 100 mg into the muscle every 7 days. 09/15/20 23 Active triamcinolone (KENALOG) 0.1 % creamIndicatio ns:Eczema, unspecified type,Pruritic rash Apply topically 2 (two) times daily Apply to affected area BID.. 15 g 01/26/20 24 Active hydrOXYzine (ATARAX) 10 MG tablet Take 1 tablet by mouth every 4 (four) hours as needed for Itching. 30 tablet 01/26/20 24 Active albuterol (PROVENTIL) (2.5 MG/3ML) 0.083% nebulizer solutionIndica tions:Exacerba tion of asthma, unspecified asthma severity, unspecified whether persistent Inhale 1 ampule by nebulization every 4 (four) hours as needed for Wheezing or Shortness of Air. 30 each 09/08/20 24 Active albuterol HFA (PROVENTIL HFA) 108 (90 Base) MCG/ACT inhalerIndicat ions:Exacerbat ion of asthma, unspecified asthma severity, unspecified whether persistent Inhale 2 puffs into the lungs every 4 (four) hours as needed for Wheezing or Shortness of Air. 1 each 09/08/20 24 Active benzonatate (TESSALON) 200 MG capsuleIndicat ions:Cough, unspecified type Take 1 capsule by mouth 3 (three) times daily as needed for Cough. 30 capsule 09/08/20 24 Active Hydrocod Jonny-Chlorphe Jonny ER (TUSSIONEX) 10-8 MG/5ML SUER Take 5 mLs by mouth every 12 (twelve) hours as needed (cough). Max Daily Amount: 10 mLs 120 mL 09/25/19 25 025 Active Cholecalcifero l (VITAMIN D) 25 MCG (1000 UNIT) tablet Take 1,000 Units by mouth daily. 022 Discontinued amoxicillin-cl avulanate (AUGMENTIN) 500-125 MGIndications: Exacerbation of asthma, unspecified asthma severity, unspecified whether persistent Take 1 tablet by mouth 2 (two) times daily for 10 days. 20 tablet 09/08/20 24 024 predniSONE (DELTASONE) 20 MG tabletIndicati ons:Exacerbati on of asthma, unspecified asthma severity, unspecified whether persistent Take 1 tablet by mouth daily for 5 days. 5 tablet 09/08/20 24 024 azithromycin (ZITHROMAX) 500 MG tablet Take 1 tablet by mouth daily for 5 days. 5 tablet 09/25/19 25 025 predniSONE (DELTASONE) 20 MG tablet Take 2 tablets by mouth daily for 5 days. 10 tablet 09/25/19 25 025 Hospital, Clinic, or Other Facility Administered Medication Ordered Dose Route Frequency Start Date End Date Status methylPREDNISolone acetate (DEPO-Medrol) injection 80 mg 80 mg IM Once 09/25/2024 09/25/2024 Ended albuterol-ipratropiu m (DUO-NEB) 0.5-2.5 mg/3 mL nebulizer 3 mL 3 mL NEBULIZATION Once 09/25/2024 09/25/2024 Ended albuterol-ipratropiu m (DUO-NEB) 0.5-2.5 mg/3 mL nebulizer 3 mL 3 mL NEBULIZATION Once 09/25/2024 09/25/2024 Ended Active Problems Problem Noted Date Diagnosed Date Left Rotator cuff tear s/p repair 08/19/232022 Stage 3a chronic kidney disease 03/31/2022 Primary osteoarthritis of hips, bilateral 2021 Status post total replacement of both hips 03/30/2022 Sleep apnea 01/14/2020 Asthma Hypertension ED (erectile dysfunction) Encounters Date Type Department Care Team Description 09/25/2024 3:00 PM EST [facility] [address] [address] Robyn Bone APRN 09/25/2024 2:30 PM EST [facility] [address] [address] Robyn Bone, COIL REWIND MACHINE OPERATOR Moderate asthma with exacerbation, unspecified whether persistent (Primary Dx); Acute cough; Shortness of breath 09/08/2024 3:15 PM EST [facility] [address] [address] Debby Enamorado, COIL REWIND MACHINE OPERATOR Exacerbation of asthma, unspecified asthma severity, unspecified whether persistent (Primary Dx); Cough, unspecified type from Last 3 Months Immunizations Name Administration Dates Next Due COVID-19 Comirnaty/Pfizer 12 yo and older 2022 COVID-19 Pfizer PURPLE Ages 12 and Older 021,12/26/2020 Influenza Vaccine High-Dose Quadrivalent 65+ Pf 08/17/2023 Influenza Vaccine Quadrivalent Pf 09/22/2020, Influenza Vaccine Tri (IM) 06/28/2017 Influenza, Injectable, MDCK, Preservative Free, Quadrivalent 07/23/2019 Pneumococcal Conjugate 13-Valent 07/23/2019 Pneumococcal Polysaccharide 23 07/03/2018,2016 Family History Medical History Relation Comments Cancer, Other or Unknown Type Father pr ostate Other Mother pneumonia Relation Status Comments Father Mother Social History Tobacco Use Types Packs/Day Years Used Date Smoking Tobacco: Never Smokeless Tobacco: Never Tobacco Cessation:Counseling Given: Not Answered Alcohol Use Standard Drinks/Week Comments Yes 0 (1 standard drink = 0.6 oz pur e alcohol) socially Sex and Gender Information Value Date Recorded Sex Assigned at Not on file Legal Sex Male 4:52 PM EST Gender Identity Not on file Sexual Orientation Not on file Last Filed Vital Signs Vital Sign Reading Time Taken Comments Blood Pressure 136/66 09/08/2024 3:20 PM EST Pulse 112 09/08/2024 3:20 PM EST Temperature 36.9 ??C (98.5 ??F) 09/08/2024 3:20 PM ES T Respiratory Rate 16 01/26/2024 10:33 AM EDT Oxygen Saturation 96% 09/08/2024 3:20 PM EST Inhaled Oxygen Concentration - - Weight 89.9 kg (198 lb 3.1 oz) 09/08/2024 3:20 P M EST Height 172.7 cm (5' 8 ) 09/08/2024 3:20 PM EST Body Mass Index 30.14 09/08/2024 3:20 PM EST Plan of Treatment Upcoming Encounters Date Type Department Care Team (Late st Contact Info) Description 01/24/2025 1:40 PM EDT Office Visit [facility] - [address] [phone] Damien Cárdenas, COIL REWIND MACHINE OPERATOR [address] [place] [address] Health Maintenance Due Date Last Done Comments CT Colonography 1960 Colonoscopy 1960 Colorectal Cancer Screening 1960 FIT-DNA 1960 FIT 1960 FOBT 1960 Hepatitis C Screening 1960 Medicare Annual Wellness Visit (AWV) 1960 Sigmoidoscopy 1960 Tdap/Td Vaccine >11 yo (1 - Tdap) 1977 Colon Cancer Screening (View Only - Retired) 2003 Shingles (Shingrix) (1 of 2) 2008 Abdominal Aortic Aneurysm (AAA) Screen 2023 COVID-19 Vaccine ( - season) 2024 08/17/2023, 01/19/2021, 12/26/2020 Pneumococcal Vaccines >65 yo (3 of 3 - PCV20 or PCV21) 07/23/2024 07/23/2019, 07/03/2018, 06/28/2017 Influenza Vaccine Completed 08/28/2024, , 06/10/2022, Additional history exists Haemophilus Influenzae Type B (Hib) Vaccine Aged Out No longer eligible based on patient's age to complete this topic Hepatitis A (HepA) Vaccine Aged Out N o longer eligible based on patient's age to complete this topic Hepatitis B (HepB) Vaccine Aged Out N o longer eligible based on patient's age to complete this topic Meningococcal ACWY Aged Out No longer eligible based on patient's age to complete this topic Polio (IPV) Aged Out No longer eligi ble based on patient's age to complete this topic Rotavirus (RV) Vaccine Aged Out No lo nger eligible based on patient's age to complete this topic Medical Devices Implanted Type Area Crozer Operator Device Identifier Shelf Expiration Date Model / Serial / Lot Loop Wire Christina [id number] - [id number] Implanted:Qty : 1 on 03/30/2022 by Cholo Dotson MD at [facility] Cable Left: Hip [employer] [id number] / / Cage Harms 12 [id number] - [id number] Implanted:Qty : 1 on 02/16/2013 by Shady Camargo MD at [facility] Cages Bilateral: Spine Cervical DEPUY,ACROMED [id number] / / Description:C4-7 Graft Tissue Regen Med 4565 - [id number] Implanted:Qty : 1 on 08/19/2023 by Donald Josue MD at [facility] Grafts Left: Shoulder [employer]W ORTHO 11/13/2025 4565 / / [id number] Hip Shell Acetab 52 [id number] - [id number] Implanted:Qty : 1 on 03/30/2022 by Cholo Dotson MD at [facility] Hips Left: Hip [employer]PHEW ORTHO 08/21/2031 [id number] / / [id number] Hip Liner [place] Sz 32 [id number] - [id number] Implanted:Qty : 1 on 03/30/2022 by Cholo Dotson MD at [facility] Hips Left: Hip [employer] ORTHO 08/20/2027 [id number] / / [id number] Hip Fem Head Taper 32 [id number] - [id number] Implanted:Qty : 1 on 03/30/2022 by Cholo Dotson MD at [facility] Hips Left: Hip [employer] ORTHO 09/23/2031 [id number] / / [id number] Hip Shell Acetab 52 [id number] - [id number] Implanted:Qty : 1 on 03/30/2022 by Cholo Dotson MD at [facility] Hips Right: Hip [employer]THO 10/20/2031 [id number] / / [id number] Hip Liner Acetab 52 [id number] - [id number] Implanted:Qty : 1 on 03/30/2022 by Cholo Dotson MD at [facility] Hips Right: Hip [employer] ORTHO 02/02/2031 [id number] / / [id number] Hip Fem Head Taper 32 [id number] - [id number] Implanted:Qty : 1 on 03/30/2022 by Cholo Dotson MD at [facility] Hips Right: Hip [employer] ORTHO 11/28/2031 [id number] / / [id number] Hip Stem Sz2 Lat [id number] - [id number] Implanted:Qty : 1 on 03/30/2022 by Cholo Dotson MD at [facility] OTHER - IMPLANTS - ORTHOPAEDIC Left: Hip [employer]PHEW ORTHO 10/02/2024 [id number] / / [id number] Hip Stem Sz2 Lat [id number] - [id number] Implanted:Qty : 1 on 03/30/2022 by Cholo Dotson MD at [facility] OTHER - IMPLANTS - ORTHOPAEDIC Right: Hip [employer]PHEW ORTHO 01/12/2028 [id number] / / [id number] [place] 4.75 Peek [id number] - [id number] Implanted:Qty : 1 on 08/19/2023 by Donald Josue MD at [facility] OTHER - IMPLANTS - ORTHOPAEDIC Left: Shoulder ARTHREX ARTHROSCOPY INSTRUMENT 03/18/2028 [id number] / / [id number] [place] Bone 4403 - [id number] Implanted:Qty : 1 on 08/19/2023 by Donald Josue MD at [facility] OTHER - IMPLANTS - ORTHOPAEDIC Left: Shoulder [employer]PHEW ORTHO 03/14/2026 / / [id number] Plate Vance 3l 48 [id number] - [id number] Implanted:Qty : 1 on 02/16/2013 by Shady Camargo MD at [facility] Plates Bilateral: Spine Cervical DEPUY,ACROMED [id number] / / Description:C4-7 Staple Tendon 36708 - [id number] Implanted:Qty : 1 on 08/19/2023 by Donald Josue MD at [facility] Screws, Bolts and Washers Left: Shoulder [employer]PHEW ENDOSCOPY 01/27/2026 [id number] / / [id number] Screw 16 [id number] - [id number] Implanted:Qty : 4 on 02/16/2013 by Shady Camargo MD at [facility] Screws Bilateral: Spine Cervical DEPUY,ACROMED [id number] / / Description:C4-7 Implant Tack Loop [id number] - [id number] Implanted:Qty : 1 on 08/19/2023 by Donald Josue MD at [facility] Shoulders Left: Shoulder ARTHREX ARTHROSCOPY INSTRUMENT 12/17/2026 [id number] / / [id number] Procedures Procedure Name Priority Date/Time Associated Diagnosis Comments XR CHEST 2VW Routine 09/25/2024 3:05 PM EST Acute cough Shortness of breath IPOC SARS-COV-2 FLU A/B PCR Routine 09/25/2024 2:41 PM EST Shortness of breath IPOC SARS-COV-2 FLU A/B PCR Routine 09/08/2024 3:25 PM EST Cough, unspecified type from Last 3 Months Results * XR Chest 2Vw (09/25/2024 3:05 PM EST) [facility] RAD WORKSTATION ID [id number] MT POWERSCRIBE Anatomical Region Laterality Modality Chest [facility] Radiographic Imaging 09/25/2024 3:54 PM EST Narrative 09/25/2024 3:55 PM EST REVIEWING YOUR TEST RESULTS IN [facility] IS NOT A SUBSTITUTE FOR DISCUSSING THOSE RESULTS WITH YOUR HEALTH CARE PROVIDER. PLEASE CONTACT YOUR PROVIDER VIA [facility] TO DISCUSS ANY QUESTIONS OR CONCERNS YOU MAY HAVE REGARDING THESE TEST RESULTS. RADIOLOGY REPORT FACILITY: ??[facility] UNIT/AGE/GENDER: P.ICCD ??OP ?AGE:64 Y ?SEX:M PATIENT NAME/: ??MARGARITA MALIN D ?1960 UNIT NUMBER: ??[id number] ACCESSION NUMBER: ??[id number] XR CHEST 2VW 09/25/2024 at 1455 hours HISTORY: Cough, short of air, asthma. COMPARISON: PA and lateral chest performed on March 01, 2022 FINDINGS: The lungs are clear. Heart and mediastinal borders are within normal limits. There is no evidence of acute focal opacity or pneumothorax. The bony structures are unremarkable. An anterior cervical fusion has been performed with a strut. IMPRESSION: No active cardiopulmonary disease. Dictated by: Alexus Nicole M.D. Images and Report reviewed and interpreted by: Alexus Nicole M.D. <PS><Electronically signed by: Alexus Nicole M.D.> 09/25/2024 1554 1554 1554 Procedure Note Alexus Nicole MD - 09/25/2024 REVIEWING YOUR TEST RESULTS IN [facility] A SUB[facility] FORDISCUSSING THOSE RESULTS WITH YOUR HEALTH CARE PROVIDER. PLEASE CONTACT YOUR PROVIDER VIA [facility] TO DISCUSS ANY QUESTIONS ORCONCERNS YOU MAY HAVE REGARDING THESE TEST RESULTS. RADIOLOGY REPORT FACILITY: [facility] UNIT/AGE/GENDER: P.ICCD OP AGE:64 Y SEX:M PATIENT NAME/: MARGARITA MALIN D 1960 UNIT NUMBER: [id number] ACCESSION NUMBER: [id number] XR CHEST 2VW 09/25/2024 at 1455 hours HISTORY: Cough, short of air, asthma. COMPARISON: PA and lateral chest performed on March 01, 2022 FINDINGS: The lungs are clear. Heart and mediastinal borders are within normal limits. There is no evidence of acute focal opacity or pneumothorax. The bony structures are unremarkable. An anterior cervical fusion has been performed with a strut. IMPRESSION: No active cardiopulmonary disease. Dictated by: Alexus Nicole M.D. Images and Report reviewed and interpreted by: Alexus Nicole M.D. <PS><Electronically signed by: Alexus Nicole M.D.> 09/25/2024 1554 1554 1554 Robyn Bone APRN [facility] DIAGNOSTIC IMAGING ORDER ALEX Final Result * IPOC SARS-CoV-2 FLU A/B PCR Reason for Testing: Symptomatic Rapid Test Showing COVID Symptoms (09/25/2024 2:41 PM EST) Only the most recent of2 resultswithin the time period is included. COVID Result IPOC PCR Not Detected Not Detected 09/25/2024 3:04 PM EST [facility]/TED Influenza A PCR - IPOC Not Detected Not Detected 09/25/2024 3:04 PM EST [facility]/T[facility] Influenza B PCR - IPOC Not Detected Not Detected 09/25/2024 3:04 PM EST [facility]/TED Tissue NASOPHARYNGEAL SWAB / Unknown Non-blood Collection / Unknown 09/25/2024 2:41 PM EST 09/25/2024 2:42 PM EST Ivana PLATT MA/TED - 09/25/2024 3:04 PM EST This test utilizes real-time polymerase chain reaction to detect RNA sequences unique to SARS-CoV-2 virus, influenza A virus, and influenza B virus in nasopharyngeal and nasal specimens collected from patients with symptoms consistent with COVID-19 and/or influenza. ??Limit of detection has been measured at 0.012 TCID50/ml for SARS-CoV-2, 0.003-0.02 TCID50/ml for influenza A, and 0.002-0.004 TCID50/ml for influenza B. This test is currently available for use under an Emergency Use Authorization from the Food and Drug Administration. Lilliana Ceron APRN MICROBIOLOGY - GENERAL ORD ERABLES Final Result [facility] [address] [facility] [address] [place] [phone] from Last 3 Months Insurance MEDICARE Advance Directives * Full Code (Latest Code Status on File) Date Activated Date Inactivated Comments 03/30/2022 4:24 PM 04/01/2022 4:16 PM * Full Code Date Activated Date Inactivated Comments 02/16/2013 11:49 AM 02/18/2013 1:34 PM Care Teams Transport Driver Relationship Specialty Start Date End Date Keanu Brooks DO PCP - General Family Medicine 01/14/20
--- OUTSIDE RECORDS SUMMARY | 2024-10-10 22:51 | XMS_ITS | Encounter Summary ---
[facility] Organization [facility] Address [address] [place] [address] Care Team Providers Care Tax Accountant Name Role Phone Keanu Brooks DO Primary Care Provider + [phone] Reason for Visit * Reason Onset Date Comments Med Refill 11/20/2019 Encounter Details Date Type Department Care Team (Late st Contact Info) Description 11/20/2019 Refill [facility] [address] [address] Keanu Brooks DO [address] [phone] Other insomnia (Primary Dx) Social History Tobacco Use Types Packs/Day Years [...] Office Visit [facility] [address] [address] Keanu Brooks DO [address] [address] documented as of this encounter Visit Diagnoses Diagnosis Other insomnia- Primary documented in this encounter Care Teams Tax Accountant Relationship Specialty Start Date End Date Keanu Brooks DO [address] [address] PCP - General Family Medicine 12/11/18 documented as of this encounter
--- OUTSIDE RECORDS SUMMARY | 2024-10-10 22:51 | XMS_ITS | Encounter Summary ---
Author Organization [facility] Address [address] [place] [address] Care Team Providers Care Press Clippings Cutter And Paster Name Role Phone Keanu Brooks DO Primary Care Provider [phone] Reason for Visit * Reason Comments Eczema Pt reported a recurr ent eczema with rash all over his body, it's irritated, scratchy and itchy. Can't sleep. Encounter Details Date Type Department Care Team (Late st Contact Info) Description 01/26/2024 11:00 AM EDT Office Visit [address] [place] [id number] Sushma Packer, MANPOWER DEVELOPMENT ADVISOR [address] [place] [address] Eczema, unspecified type (Primary Dx); Pruritic rash Social History Tobacco Use Types Packs/Day Years [...] Sign Reading Time Taken Comments Blood Pressure 115/73 01/26/2024 10:33 AM EDT Pulse 88 01/26/2024 10:33 AM EDT Temperature 36.6 ??C (97.8 ??F) 01/26/2024 10:33 AM E DT Respiratory Rate 16 01/26/2024 10:33 AM EDT Oxygen Saturation 96% 01/26/2024 10:33 AM EDT Inhaled Oxygen Concentration - - Weight 90 kg (198 lb 6.6 oz) 01/26/2024 10:33 AM EDT Height 170.2 cm (5' 7 ) 01/26/2024 10:33 AM EDT Body Mass Index 31.08 01/26/2024 10:33 AM EDT documented in this encounter Functional Status * Are You Deaf or do You Have Serious Difficulty Hearing? Answer Date of Assessment Author No 03/30/2022 4:27 PM EDT Kristy Love RN * Patient's Vision Adequate to Safely Complete Daily Activities Answer Date of Assessment Author Yes 03/30/2022 4:27 PM EDT Kristy Love RN * Do You Have Serious Difficulty Walking or Climbing Stairs? Answer Date of Assessment Author No 03/30/2022 4:27 PM EDT Georgi Love RN * Do You Have Difficulty [...] Kristy Love RN documented in this encounter Patient Instructions * Attachments The following attachments cannot be sent through Care Everywhere. * Eczema (Security Officer) ([place]) documented in this encounter Progress Notes * Sushma Packer APRN - 01/26/2024 10:43 AM EDT Patient Identification: Name: Yovanny Steve Age: 63 yr/o Gender: male : 1960 PCP: Keanu Brooks DO Chief Complaint: Yovanny Steve is presenting today for Eczema (Pt reported a recurrent eczema with rash all over his body, it's irritated, scratchy and itchy. Can't sleep.) . History of Present Illness: Eczema This is a recurrent problem. The current episode started more than 1 month ago. The problem occurs intermittently. The problem has been unchanged. Exacerbated by: seasonal allergens. Treatments tried: daily allergy meds. The treatment provided no relief. History, Medications, Allergies, and Review of Symptoms: Past Medical History: Past Medical History: Diagnosis Date ??? Asthma ??? Cervical stenosis of spine ??? Chronic kidney disease 2020 acute failure ??? Degenerative disc disease, cervical ??? ED (erectile dysfunction) ??? Hypertension ??? Left shoulder pain ??? Seasonal allergies ??? Sleep apnea uses cpap ??? Snoring Past Surgical History: Past Surgical History: Procedure Laterality Date ??? ANTERIOR CERVICAL DISCECTOMY W/ FUSION 2011 C6 - C8 welded together ??? COLONOSCOPY ??? JOINT REPLACEMENT Bilateral 2021 Bilat hips ??? KNEE ARTHROSCOPY W/ MENISCAL REPAIR Left 2011 ??? SHOULDER ARTHROSCOPY W/ ROTATOR CUFF REPAIR Right 2010 ??? SPINE SURGERY L5 - S1 laminectomy Current Medications: Outpatient Medications as of 01/26/2024 Medication Sig Dispense Refill ??? albuterol (PROVENTIL HFA;VENTOLIN HFA) 108 (90 BASE) MCG/ACT inhaler Inhale 2 puffs into the lungs every 6 (six) hours as needed for Wheezing . ??? allopurinol (ZYLOPRIM) 300 MG tablet Take 300 mg by mouth daily . ??? budesonide-formoterol (SYMBICORT) 160-4.5 MCG/ACT inhaler Inhale 2 puffs into the lungs 2 (two)times daily. ??? fexofenadine (GABBIE) 180 MG tablet Take 180 mg by mouth daily . ??? fluticasone (FLONASE) 50 MCG/ACT nasal spray Instill 2 sprays into nose daily. ??? fluticasone (FLONASE) 50 MCG/ACT nasal spray Instill 2 sprays into nose 2 (two) times daily as needed for Allergies. ??? fluticasone-Salmeterol (WIXELA INHUB) 500-50 MCG/ACT AEPB inhaler Inhale 1 puff into the lungs 2 (two) times daily. ??? hydrOXYzine (ATARAX) 10 MG tablet Take 1 tablet by mouth every 4 (four) hours as needed for Itching. 30 tablet 0 ??? lisinopril-hydrochlorothiazide (PRINZIDE,ZESTORETIC) 20-25 MG per tablet Take 1 tablet by mouthdaily. ??? mometasone furo-formoterol (DULERA) 200-5 MCG/ACT AERO inhaler Inhale 2 puffs into the lungs 2 (two) times daily . ??? montelukast (SINGULAIR) 10 MG tablet Take 10 mg by mouth daily. ??? Multiple Vitamin (MULTIVITAMIN ADULT PO) Take 1 tablet by mouth daily. ??? testosterone cypionate (DEPOTESTOTERONE CYPIONATE) 200 MG/ML injection Inject 100 mg into the muscle every 7 days. ??? testosterone cypionate (DEPOTESTOTERONE CYPIONATE) 200 MG/ML injection INJECT 0.5 ML INTO THE MUSCLE EVERY WEEK DIRECTED... NEEDS 18 G AND 22 G SYRINGES 5 ??? tiotropium bromide monohydrate (SPIRIVA RESPIMAT) 2.5 MCG/ACT AERS Inhale 2 puffs into the lungs daily . ??? traZODone (DESYREL) 300 MG tablet Take 300 mg by mouth nightly. ??? vitamin E 100 UNIT capsule Take 100 Units by mouth daily. Allergies: Allergies as of 01/26/2024 Review status set to Review Complete by Nimesh Caruso on 01/26/2024 No Known Allergies Family Medical History: Family History Problem Relation Age of Onset ??? Other Mother pneumonia ??? Cancer, Other or Unknown Type Father prostate Social History: Social History Tobacco Use ??? Smoking status: Never ??? Smokeless tobacco: Never Vaping Use ??? Vaping Use: Never used Substance Use Topics ??? Alcohol use: Yes Comment: socially ??? Drug use: No E-cigarette/Vaping Use: Never User Physical Exam: BP 115/73 Pulse 88 Temp 97.8 ??F (36.6 ??C) (Oral) Resp 16 Ht 5' 7 (1.702 m) Wt 198 lb 6.6 oz (90 kg) SpO2 96% BMI 31.08 kg/m?? Physical Exam Vitals and nursing note reviewed. Constitutional: General: He is not in acute distress. Appearance: Normal appearance. He is not ill-appearing or toxic-appearing. Skin: General: Skin is warm and dry. Capillary Refill: Capillary refill takes less than 2 seconds. Findings: No rash ( no rash currently, pt states it is intermittent- showed pictures, dry and slightly erythematous areas ). Neurological: Mental Status: He is alert. Assessment/Plan: Diagnoses and orders/medications from this encounter 1. Eczema, unspecified type predniSONE (DELTASONE) 10 MG tablet triamcinolone (KENALOG) 0.1 % cream 2. Pruritic rash predniSONE (DELTASONE) 10 MG tablet triamcinolone (KENALOG) 0.1 % cream Encounter Medications Signed Prescriptions Disp Refills ??? predniSONE (DELTASONE) 10 MG tablet 12 tablet 0 Sig: Take 1 tablet by mouth 2 (two) times daily for 5 days, THEN 1 tablet daily for 2 days. ??? triamcinolone (KENALOG) 0.1 % cream 15 g 0 Sig: Apply topically 2 (two) times daily Apply to affected area BID.. ??? hydrOXYzine (ATARAX) 10 MG tablet 30 tablet 0 Sig: Take 1 tablet by mouth every 4 (four) hours as needed for Itching. Results this visit (if any) No results found for this visit on 01/26/24. Follow-up (if any) Return for Follow up with Primary Care Provider, Go to ED if symptoms worsen or fail to improve. Medical Decision Making Patient is awake, active, well perfused. Symptoms consistent with eczema. Discussed rash and expectations with the pt, as well as signs for which to monitor for - including those concerning for infection, anaphylaxis: difficulty breathing, vomiting, tongue/lip/throat swelling, or lightheadedness/syncope, joint swelling, change in mental status ,fever > 5 days Plan to followup with the PMD in the next several days, and to use above therapies. We also discussed red flag symptoms in great length and detail which should prompt immediate ED eval. Patient verbalized understanding of all dc instructions. Handout given. pt is comfortable with discharge home and questions were answered. documented in this encounter Plan of Treatment Upcoming Encounters Date Type Department Care Team (Late st Contact Info) Description 01/24/2025 1:40 PM EDT Office Visit [facility] - [address] [phone] Damien Cárdenas, MANPOWER DEVELOPMENT ADVISOR [address] [place] [address] documented as of this encounter Visit Diagnoses Diagnosis Eczema, unspecified type- Primary Pruritic rash documented in this encounter Care Teams Press Clippings Cutter And Paster Relationship Specialty Start Date End Date Keanu Brooks DO PCP - General Family Medicine 01/14/20 documented as of this encounter
--- OUTSIDE RECORDS SUMMARY | 2024-10-10 22:51 | XMS_ITS | Encounter Summary ---
Author Organization [facility] Address [address] [place] [address] Care Team Providers Care Quality Management Coordinator Name Role Phone Keanu Brooks DO Primary Care Provider [phone] Reason for Visit * Auth/Cert (Routine) Specialty Diagnoses / Procedures Referred By Contac t Referred To Contact Diagnoses Strain of musc/tend the rotator cuff of left shoulder, init [S46.012A] Procedures ARTHROSCOPIC REPAIR ROTATOR CUFF Referral ID Status Reason Start Date Expiration Date Visits Re quested Visits Authorized [id number] 1 1 Encounter Details Date Type Department Care Team (Late st Contact Info) Description 08/19/2023 2:20 PM EST - 08/19/2023 5:30 PM EST Surgery [facility] Periop Services [address] [place] [address] [place] [id number] [place], [place] [id number] LEFT ARTHROSCOPIC REPAIR ROTATOR CUFF, BICEPS TENODESIS - CPT 70882, 85776 Social History Tobacco Use Types Packs/Day Years [...] Sign Reading Time Taken Comments Blood Pressure 147/91 08/19/2023 4:40 PM EST Pulse 96 08/19/2023 4:40 PM EST Temperature 36.1 ??C (97 ??F) 08/19/2023 4:40 PM EST Respiratory Rate 18 08/19/2023 4:40 PM EST Oxygen Saturation 96% 08/19/2023 4:40 PM EST Inhaled Oxygen Concentration - - Weight 91.7 kg (202 lb 3.2 oz) 08/19/2023 11:42 AM EST Height 172.7 cm (5' 8 ) 08/19/2023 11:42 AM EST Body Mass Index 30.74 08/19/2023 11:42 AM EST documented in this encounter Functional Status * [...] Kristy Love RN documented in this encounter Discharge Instructions * Discharge Instructions* Gladis Chisholm RN - 08/19/2023 4:58 PM EST Surgical Site Wound Care If you have a dressing (bandage) on, follow the surgeon???s instructions for when to remove or change it Wash hands before and after touching the surgical site. Refrain from touching the surgical site unless you are cleaning the site Look at surgical site daily for bleeding, drainage, firmness, tenderness, and/or swelling Keep surgical site clean and dry. To clean the site: Gently clean the surgical site with soap and water daily Do no scrub or rub hard on the incision/cut Pat to clean and pat to dry the incision/cut Use a clean towel and wash cloth each time you are care for surgical site Sleep in clean night clothes and clean sheets Do not allow pets to sleep with you Call your doctor if you have the following: Temperature greater than 100.5 Drainage or discharge from surgical site Area of redness/warmth around the surgical site Persistent (continued or on-going) nausea or vomiting Dizziness or light headedness Severe pain You may be allowed to shower. If so, move slowly when in the shower and be careful on wet floors. Do not take bath or sit in hot tubs or pools until approved by your surgeon. Call the doctor if you have any questions or concerns * Attachments The following attachments cannot be sent through Care Everywhere. * General Anesthesia (Discharge Care) (Tongan) documented in this encounter Medications at Time of Discharge albuterol (PROVENTIL HFA;VENTOLIN HFA) 108 (90 BASE) MCG/ACT inhaler Inhale 2 puffs into the lungs every 6 (six) hours as needed for Wheezing . allopurinol (ZYLOPRIM) 300 MG tablet Take 300 mg by mouth daily . 07/31/2019 fexofenadine (GABBIE) 180 MG tablet Take 180 mg by mouth daily . 12/08/2019 fluticasone (FLONASE) 50 MCG/ACT nasal spray Instill 2 sprays into nose daily. 01/17/2023 fluticasone (FLONASE) 50 MCG/ACT nasal spray Instill 2 sprays into nose 2 (two) times daily as needed for Allergies. 12/06/2018 lisinopril-hydroc hlorothiazide (PRINZIDE,ZESTORE TIC) 20-25 MG per tablet Take 1 tablet by mouth daily. mometasone furo-formoterol (DULERA) 200-5 MCG/ACT AERO inhaler Inhale 2 puffs into the lungs 2 (two) times daily . 11/27/2018 montelukast (SINGULAIR) 10 MG tablet Take 10 mg by mouth daily. 01/17/2023 Multiple Vitamin (MULTIVITAMIN ADULT PO) Take 1 tablet by mouth daily. testosterone cypionate (DEPOTESTOTERONE CYPIONATE) 200 MG/ML injection INJECT 0.5 ML INTO THE MUSCLE EVERY WEEK DIRECTED... NEEDS 18 G AND 22 G SYRINGES 5 06/23/2019 tiotropium bromide monohydrate (SPIRIVA RESPIMAT) 2.5 MCG/ACT AERS Inhale 2 puffs into the lungs daily . 12/21/2018 traZODone (DESYREL) 300 MG tablet Take 300 mg by mouth nightly. vitamin E 100 UNIT capsule Take 100 Units by mouth daily. HYDROcodone-aceta minophen (NORCO) 5-325 MG per tablet Take 1 tablet by mouth every 4 (four) hours as needed for Pain for up to 7 days. Max Daily Amount: 6 tablets 40 tablet 08/19/2023 3 hydrOXYzine (ATARAX) 10 MG tablet Take 10 mg by mouth. 03/03/2023 4 documented as of this encounter H&P Notes * Donald Josue MD - 08/19/2023 12:08 PM EST HISTORY & PHYSICAL INTERVAL Yovanny Hyde High 63 yr/o 1960 male [id number] Current Vital Signs: BP (!) 155/77 (BP Location: Right arm, Orthostatic Position: Sitting) Pulse 90 Temp 98 ??F (36.7 ??C) (Temporal) Resp 18 Ht 5' 8 (1.727 m) Wt 91.7 kg (202 lb 3.2 oz) SpO2 98% BMI 30.74 kg/m?? History & Physical Status: The H&P was reviewed, the patient examined. There have been no significant clinical changes in the patient's condition since the completion of the H&P. Review of Systems: per note Donald Josue 08/19/2023 12:08 PM Source Note - Donald Josue MD - 08/18/2023 10:14 AM EST Orthopaedic Surgery Preop H&P As of December 2020, as required by the Federal 21st Century Cures Act, medical records (including provider notes and laboratory/imaging results) are to be made available to patient???s and/or their designees as soon as the documents are signed/resulted. While the intention is to ensure transparency and to engage the patient in their healthcare, this immediate access may create unintended consequences as this document uses language intended for communication between medical experts and diagnostic results are interpreted with the entirety of the patient???s clinical picture in mind. It is recommended that patients and/or their designees review all available information with their primary or spec ialist providers for explanation and guidance to avoid misinterpretation based on layperson understanding, non-medical expert opinions, or Internet searches. Yovanny Steve 1960 [id number] DIAGNOSIS Left shoulder high-grade partial rotator cuff tear, upper border subscapularis tear, type 2 slap tear, early glenohumeral arthritis HISTORY OF PRESENT ILLNESS Yovanny Steve is a 63 yr/o male with above injury. They have been seen in clinic and discussed the risks and benefits of operative vs nonoperative treatment. The patient has been indicated for surgery. After thorough discussion, patient is electing to undergo surgical treatment. Please see clinic note for more details. MEDICAL HISTORY Past Medical History: Diagnosis Date ??? Asthma ??? Cervical stenosis of spine ??? CPAP (continuous positive airway pressure) dependence ??? Degenerative disc disease, cervical ??? ED (erectile dysfunction) ??? Hypertension ??? Seasonal allergies ??? Sleep apnea uses cpap SURGICAL HISTORY Past Surgical History: Procedure Laterality Date ??? ANTERIOR CERVICAL DISCECTOMY W/ FUSION 2011 C6 - C8 welded together ??? COLONOSCOPY ??? KNEE SURGERY 2011 FOR TORN LIGAMENT ??? SHOULDER SURGERY 2010 ??? SPINE SURGERY L5 - S1 laminectomy FAMILY HISTORY Family History Problem Relation Age of Onset ??? Other Mother pneumonia ??? Cancer, Other or Unknown Type Father prostate SOCIAL HISTORY Social History Tobacco Use Smoking Status Never Smokeless Tobacco Never Social History Substance and Sexual Activity Alcohol Use Yes Comment: socially Social History Substance and Sexual Activity Drug Use No CURRENT MEDICATIONS No current facility-administered medications for this encounter. Current Outpatient Medications Medication ??? albuterol (PROVENTIL HFA;VENTOLIN HFA) 108 (90 BASE) MCG/ACT inhaler ??? allopurinol (ZYLOPRIM) 300 MG tablet ??? apixaban (ELIQUIS) 2.5 MG tablet ??? fexofenadine (GABBIE) 180 MG tablet ??? fluticasone (FLONASE) 50 MCG/ACT nasal spray ??? lisinopril-hydrochlorothiazide (PRINZIDE,ZESTORETIC) 20-25 MG per tablet ??? mometasone furo-formoterol (DULERA) 200-5 MCG/ACT AERO inhaler ??? Multiple Vitamin (MULTIVITAMIN ADULT PO) ??? sertraline (ZOLOFT) 25 MG tablet ??? testosterone cypionate (DEPOTESTOTERONE CYPIONATE) 200 MG/ML injection ??? tiotropium bromide monohydrate (SPIRIVA RESPIMAT) 2.5 MCG/ACT AERS ??? traZODone (DESYREL) 300 MG tablet ??? vitamin E 100 UNIT capsule ALLERGIES Allergies as of 08/18/2023 Review status set to Review Complete by Amaris Quintana on 01/18/2023 No Known Allergies IMMUNIZATIONS Immunization History Name Date COVID-19 COMIRNATY/PFIZER 12 AND OLDER [id number] 08/17/2023 COVID-19 Pfizer PURPLE Ages 12 and Older 01/19/2021 COVID-19 Pfizer PURPLE Ages 12 and Older 12/26/2020 Influenza TIV (IM) 06/28/2017 Influenza Vaccine High-Dose Quadrivalent 65+ Pf 08/17/2023 Influenza Vaccine Quadrivalent Pf 09/22/2020 Influenza Vaccine Quadrivalent Pf 07/03/2018 Influenza, Injectable, MDCK, Preservative Free, Quadrivalent 07/23/2019 Pneumococcal Conjugate 13-Valent 07/23/2019 Pneumococcal Polysaccharide 23 07/03/2018 Pneumococcal Polysaccharide 23 06/28/2017 REVIEW OF SYSTEMS Constitutional: Denies fevers chills nausea vomiting or other constitutional symptoms Respiratory: Denies cough, wheezing, congestion Cardiovascular: Denies palpitations or chest pain Musculoskeletal: Pain, myalgia Integument: Denies rashes or skin lesions Neurologic: Denies loss of sensation Otherwise negative except for as per HPI PHYSICAL EXAM Vital Signs: There were no vitals taken for this visit. Constitutional: Well developed, well nourished, no acute distress, non-toxic appearance Psychiatric: Speech and behavior appropriate Eyes: conjunctiva normal HENT: Atraumatic, external ears normal, able to hear spoken word Respiratory: No respiratory distress, nonlabored. Musculoskeletal: Left shoulder: Skin intact. Limited active range of motion secondary to pain. Weakness with resisted abduction andinternal/external rotation. Positive Neer, positive Tania, positive speed's test. Normal belly pressbut pain with lift-off. Sensation grossly intact to light touch with brisk capillary refill distally. IMAGING & OTHER STUDIES All appropriate imaging studies including plain film x-rays have been independently reviewed. ASSESSMENT Left shoulder high-grade partial rotator cuff tear, upper border subscapularis tear, type 2 slap tear, early glenohumeral arthritis PLAN Discussed diagnosis and treatment options with the patient and available family. Patient continues to have pain affecting activities of daily living and quality of life despite extensive non-operative treatment. Risks and benefits of operative versus non-operative treatment have been discussed at length. After thorough discussion, patient is electing to proceed with surgery. Risks of surgery include but are not limited to damage to blood vessels or nerves, bleeding, infection, postoperative stiffness, posttraumatic arthritis, hardware failure, fracture, Rotator cuff retear, posttraumatic arthritis, need for future surgeries, deep vein thrombosis, pulmonary embolus, risks of anesthesia, exacerbation of medical comorbidities, and . All of the patient's and family's questions have been answered. Patient has indicated understanding and has consented to proceed. Informed consent has been obtained. Surgery planned: Left shoulder rotator cuff repair, biceps tenodesis EMR Dragon/Electron Microscopist disclaimer: Much of this encounter note is an electronic counseling psychologist/translation of spoken language to printed text. The electronic translation of spoken language may permit erroneous, or at times, nonsensicalwords or phrases to be inadvertently transcribed; Although I have reviewed the note for such errors, some may still exist. Donald Josue MD * Donald Josue MD - 08/18/2023 10:14 AM EST Orthopaedic Surgery Preop H&P As of December 2020, as required by the Federal Century Cures Act, medical records (including provider notes and laboratory/imaging results) are to be made available to patient???s and/or their designees as soon as the documents are signed/resulted. While the intention is to ensure transparency and to engage the patient in their healthcare, this immediate access may create unintended consequences as this document uses language intended for communication between medical experts and diagnostic results are interpreted with the entirety of the patient???s clinical picture in mind. It is recommended that patients and/or their designees review all available information with their primary or spec ialist providers for explanation and guidance to avoid misinterpretation based on layperson understanding, non-medical expert opinions, or Internet searches. Yovanny Steve 1960 [id number] DIAGNOSIS Left shoulder high-grade partial rotator cuff tear, upper border subscapularis tear, type 2 slap tear, early glenohumeral arthritis HISTORY OF PRESENT ILLNESS Yovanny Steve is a 63 yr/o male with above injury. They have been seen in clinic and discussed the risks and benefits of operative vs nonoperative treatment. The patient has been indicated for surgery. After thorough discussion, patient is electing to undergo surgical treatment. Please see clinic note for more details. MEDICAL HISTORY Past Medical History: Diagnosis Date ??? Asthma ??? Cervical stenosis of spine ??? CPAP (continuous positive airway pressure) dependence ??? Degenerative disc disease, cervical ??? ED (erectile dysfunction) ??? Hypertension ??? Seasonal allergies ??? Sleep apnea uses cpap SURGICAL HISTORY Past Surgical History: Procedure Laterality Date ??? ANTERIOR CERVICAL DISCECTOMY W/ FUSION 2011 C6 - C8 welded together ??? COLONOSCOPY ??? KNEE SURGERY 2011 FOR TORN LIGAMENT ??? SHOULDER SURGERY 2010 ??? SPINE SURGERY L5 - S1 laminectomy FAMILY HISTORY Family History Problem Relation Age of Onset ??? Other Mother pneumonia ??? Cancer, Other or Unknown Type Father prostate SOCIAL HISTORY Social History Tobacco Use Smoking Status Never Smokeless Tobacco Never Social History Substance and Sexual Activity Alcohol Use Yes Comment: socially Social History Substance and Sexual Activity Drug Use No CURRENT MEDICATIONS No current facility-administered medications for this encounter. Current Outpatient Medications Medication ??? albuterol (PROVENTIL HFA;VENTOLIN HFA) 108 (90 BASE) MCG/ACT inhaler ??? allopurinol (ZYLOPRIM) 300 MG tablet ??? apixaban (ELIQUIS) 2.5 MG tablet ??? fexofenadine (GABBIE) 180 MG tablet ??? fluticasone (FLONASE) 50 MCG/ACT nasal spray ??? lisinopril-hydrochlorothiazide (PRINZIDE,ZESTORETIC) 20-25 MG per tablet ??? mometasone furo-formoterol (DULERA) 200-5 MCG/ACT AERO inhaler ??? Multiple Vitamin (MULTIVITAMIN ADULT PO) ??? sertraline (ZOLOFT) 25 MG tablet ??? testosterone cypionate (DEPOTESTOTERONE CYPIONATE) 200 MG/ML injection ??? tiotropium bromide monohydrate (SPIRIVA RESPIMAT) 2.5 MCG/ACT AERS ??? traZODone (DESYREL) 300 MG tablet ??? vitamin E 100 UNIT capsule ALLERGIES Allergies as of 08/18/2023 Review status set to Review Complete by Amaris Quintana on 01/18/2023 No Known Allergies IMMUNIZATIONS Immunization History Name Date COVID-19 COMIRNAT/PFIZER 12 AND OLDER [id number] 08/17/2023 COVID-19 Pfizer PURPLE Ages 12 and Older 01/19/2021 COVID-19 Pfizer PURPLE Ages 12 and Older 12/26/2020 Influenza TIV (IM) 06/28/2017 Influenza Vaccine High-Dose Quadrivalent 65+ Pf 08/17/2023 Influenza Vaccine Quadrivalent Pf 09/22/2020 Influenza Vaccine Quadrivalent Pf 07/03/2018 Influenza, Injectable, MDCK, Preservative Free, Quadrivalent 07/23/2019 Pneumococcal Conjugate 13-Valent 07/23/2019 Pneumococcal Polysaccharide 23 07/03/2018 Pneumococcal Polysaccharide 23 06/28/2017 REVIEW OF SYSTEMS Constitutional: Denies fevers chills nausea vomiting or other constitutional symptoms Respiratory: Denies cough, wheezing, congestion Cardiovascular: Denies palpitations or chest pain Musculoskeletal: Pain, myalgia Integument: Denies rashes or skin lesions Neurologic: Denies loss of sensation Otherwise negative except for as per HPI PHYSICAL EXAM Vital Signs: There were no vitals taken for this visit. Constitutional: Well developed, well nourished, no acute distress, non-toxic appearance Psychiatric: Speech and behavior appropriate Eyes: conjunctiva normal HENT: Atraumatic, external ears normal, able to hear spoken word Respiratory: No respiratory distress, nonlabored. Musculoskeletal: Left shoulder: Skin intact. Limited active range of motion secondary to pain. Weakness with resisted abduction and internal/external rotation. Positive Neer, positive Tania, positive speed's test. Normal belly press but pain with lift-off. Sensation grossly intact to light touch with brisk capillary refill distally. IMAGING & OTHER STUDIES All appropriate imaging studies including plain film x-rays have been independently reviewed. ASSESSMENT Left shoulder high-grade partial rotator cuff tear, upper border subscapularis tear, type 2 slap tear, early glenohumeral arthritis PLAN Discussed diagnosis and treatment options with the patient and available family. Patient continues to have pain affecting activities of daily living and quality of life despite extensive non-operative treatment. Risks and benefits of operative versus non-operative treatment have been discussed at length. After thorough discussion, patient is electing to proceed with surgery. Risks of surgery include but are not limited to damage to blood vessels or nerves, bleeding, infection, postoperative stiffness, posttraumatic arthritis, hardware failure, fracture, Rotator cuff retear, posttraumatic arthritis, need for future surgeries, deep vein thrombosis, pulmonary embolus, risks of anesthesia, exacerbation of medical comorbidities, and . All of the patient's and family's questions have been answered. Patient has indicated understanding and has consented to proceed. Informed consent has been obtained. Surgery planned: Left shoulder rotator cuff repair, biceps tenodesis EMR Dragon/Electron Microscopist disclaimer: Much of this encounter note is an electronic counseling psychologist/translation of spoken language to printed text. The electronic translation of spoken language may permit erroneous, or at times, nonsensicalwords or phrases to be inadvertently transcribed; Although I have reviewed the note for such errors, some may still exist. Donald Josue MD documented in this encounter Miscellaneous Notes * Nurse - Gladis Chisholm RN - 08/19/2023 5:32 PM EST Discharge instructions discussed with patient and girlfriend at bedside. All questions answered. Ptand girlfriend verbalize understanding of discharge instructions. IV access removed at this time. Pt changing into home clothes with standby assistance from family. [facility] with girlfriend. * Operative Report - Donald Josue MD - 08/19/2023 1:48 PM EST ORTHOPAEDIC OPERATIVE/PROCEDURE REPORT LOCATION: [facility] MAIN OR PATIENT NAME: Yovanny Steve PATIENT AGE/GENDER: 63 yr/o male : 1960 DATE OF SURGERY: 08/19/2023 No case tracking events are documented in the log. Pre-operative Diagnosis Code: Pre-Op Diagnosis Codes: Pre-Op Diagnosis Codes: * Strain of musc/tend the rotator cuff of left shoulder, init [S46.012A] Pre-operative Diagnosis Free Text: Left Rotator cuff tear, subacromial impingement, biceps tendinosis Post-operative Diagnosis: No change from Preoperative Diagnosis Surgeon(s) and Role: * Donald Josue MD - Primary Coroner/Medical Examiner: LB Montes Coroner/Medical Examiner essential for patient positioning, prepping and draping, arm manipulation, and wound closure Procedure(s) Performed: Procedure(s) and Anesthesia Type: 1. Left shoulder arthroscopic rotator cuff repair (89395), 2. Biceps tenodesis (25109) Type of Anesthesia: General + Interscalene block Specimens: None Complications: None Implants: Arthrex knotless biocomposite 4.75mm SwiveLock anchor x1, Medium [employer]hew Regeneten patch Findings: Exam under anesthesia: Synovium: Erythematous Loose bodies: None Humeral head: Normal cartilage Glenoid: Outerbridge Grade: 1 Superior labrum: Type II tear Anterior labrum: Fraying Posterior labrum: Normal Inferior pouch: Normal Biceps tendon: Hyperemic with interstitial tearing Superior Rotator cuff: Partial thickness bursal tear Subscapularis Rotator cuff: interstitial upper boarder tear Indications for Operation/Procedure: Yovanny Steve is a 63 yr/o male who presented to the clinic with pain and weakness in the shoulder, which was not responsive to non-operative treatments including activity modification, therapy, anti-inflammatories, and injections. The history, examination, and imaging are consistent with a torn rotator cuff. The risks and benefits of nonoperative versus operative treatments were discussed. The patient was oriented as to the diagnosis and the treatment options. The risks of surgery include, but are not limited to: infection, bleeding, nerve and vessel injury, continued pain, shoulder stiffness, recurrent rotator cuff tear, implant failure, blood clots, and the possibility of future surgery. Understanding the risks, the patient elected to proceed with surgery and informed consent was obtained.. Description of procedure: The patient was identified in the preoperative area and given antibiotics for prophylaxis against infection. An interscalene block was given by the anesthesiologist for postoperative analgesia. SCDs were placed on the lower extremities. The patient was taken to the operating room and placed supine on the OR table. After adequate general anesthesia, the patient was transitioned to the lateral decubitus position on a thornton bag with axillary roll. Bony prominences were well padded. The upper extremity was prepped and draped in the standard sterile fashion. A final timeout was performed to confirmcorrect patient, procedure, and site. All were in agreement. A standard posterosuperior portal was made, and the arthroscope introduced. Using an inside-out technique an anterior interval cannula was established, and a probe was placed in the shoulder. A thorough diagnostic arthroscopy was performed, and the above findings were seen. There was hyperemia with interstitial tearing of the long head biceps tendon and unstable labral anchor. The decision was made for biceps tenodesis. Using the loop and tack technique, suture was placed around the biceps tendon, and stump cut flush with the labrum. The sutures were anchored into thetop of the biceps groove with a 4.75 mm biocomposite anchor. The remaining sutures were passed around the upper border of the subscapularis and tensioned with knotless technique. Excess suture cut flush. This completed the biceps tenodesis and upper border subscapularis repair. The scope was then placed in the subacromial space. The bursa was thickened and inflamed. The shaver was used to perform a subacromial bursectomy. Any adhesions from the rotator cuff to the deltoid fascia were released. The rotator cuff was able to be clearly visualized. The radiofrequency device was used to remove the soft tissues off the undersurface of the acromion. Attention was then turned to the rotator cuff. There was a high-grade bursal sided interstitial tear of the supraspinatus. The decision was made for repair. A medium Regeneten Eagle [employer]hew patch was called for. The patch was placed in the interstitial defect and repaired with the tendon kimberly. Bone kimberly were used laterally to complete the repair. The arm was taken through range of motio n, and the rotator cuff tissue was found to move with the humerus without gap formation. The arthroscopic fluid and instruments were removed from the shoulder. The portals were closed with3-0 Monocryl. A dry, sterile dressing followed by a padded abduction sling was applied. All counts were correct at the end of the case x2. The patient tolerated the procedure well, was extubated, andwas taken to recovery in stable condition. Postop Plan: -NWB in abduction brace -Polar cube -Home exercises per sheet -PT per small cuff repair protocol with Regeneten patch -F/u 2 weeks. Grafts/Implants: Implant Name Type Inv. Item Serial No. Timber Harvester Operator Lot No. LRB No. Used Action IMPLANT TACK LOOP [id number] - [id number] Shoulders IMPLANT TACK LOOP [id number] ARTHREX ARTHROSCOPY INSTRUMENT [id number] Left 1 Implanted ANCHOR 4.75 PEEK [id number] - [id number] OTHER - IMPLANTS - ORTHOPAEDIC ANCHOR 4.75 PEEK [id number] ARTHROSCOPY INSTRUMENT [id number] Left 1 Implanted GRAFT TISSUE REGEN MED 4565 - [id number] Grafts GRAFT TISSUE REGEN MED 4565 [employer] ORTHO [id number] Left 1 Implanted ANCHOR BONE 4403 - [id number] OTHER - IMPLANTS - ORTHOPAEDIC ANCHOR BONE 4403 [employer] ORTHO [id number] Left 1 Implanted STAPLE TENDON 90796 - [id number] Screws, Bolts and Washers STAPLE TENDON 06692 [employer] ENDOSCOPY [id number] Left 1 Implanted Estimated Blood Loss: Minimal Fluids/Drains: None Donald Josue MD 08/19/23 * Pre-Procedure Instructions - Alyssa Landers RN - 08/18/2023 11:57 AM EST [facility] PRE-OPERATIVE INSTRUCTIONS Notify your doctor of any changes in your health such as fever, cold, flu, etc. Follow Your surgeon's instructions about taking or stopping any medications. Medications to take day of surgery: DULERA, SPIRIVA, GABBIE, FLONASE Your procedure is scheduled at [facility] in [facility] [address] [place]. Yoselin mcfarlane in the [facility] Parking garage. [address] [facility] [address] (closest to the [employer]) [place] [address] [address] Please arrive at the time your doctor has given you. Call the Pre-Operative front desk clerk at if you cannot arrive at the specific time. DAY OF SURGERY, DO NOT EAT OR SMOKE AFTER MIDNIGHT - THIS INCLUDES GUM CANDY AND MINTS. FOLLOW [facility] INSTRUCTIONS ON EATING AND DRINKING. THINGS TO BRING ON DAY OF SURGERY: Picture ID, insurance card, copy of your living will and co-payment if needed. If you have a CPAP/BIPAP machine, drain the water & bring to pre-op with settings, we will furnish the distilled water. If you have a rescue inhaler, please bring to pre-op. Shower the night before and the morning of your procedure with an antibacterial soap. (Examples arelike Dial or Safeguard) [place] your teeth and use deodorant unless you are otherwise instructed. Wear loose, comfortable clothing. DO NOT USE: AFTER SHAVE, LOTION, POWDER, MASCARA, MAKE-UP OR PERFUME. Wear your glasses instead of contact lenses. Dentures will be removed prior to your procedure. DO NOT WEAR JEWELRY OR ANY BODY PIERCINGS. Please note that the person you bring with you the day of your procedure may hear private medical history & information about you in the pre-op area. Your family will be responsible for your belongings. Please leave your luggage in the car and do not bring anything valuable. If you are going to be admitted, a room assignment will be made while you are in recovery. IF YOU ARE GOING TO BE DISCHARGED HOME, SOMEONE (OVER THE AGE OF 18) MUST BE AVAILABLE TO [place] AND STAY WITH YOU FOR THE FIRST 24 HOURS AFTER SURGERY. documented in this encounter Plan of Treatment Upcoming Encounters Date Type Department Care Team (Late st Contact Info) Description 01/24/2025 1:40 PM EDT Office Visit [facility] [place] [address] [facility] [address] [place] [address] Damien Cárdenas, PUTTY GLAZER [address] [place] [address] Scheduled Referrals Name Type Priority Associated Diagnoses Order Schedule Follow up appointment to see me Outpatient Referral Routine Left Rotator cuff tear s/p repair 08/19/23 Ordered: 08/19/2023 documented as of this encounter Procedures Procedure Name Priority Date/Time Associated Diagnosis Comments ARTHROSCOPIC REPAIR ROTATOR CUFF 08/19/2023 1:18 PM EST Strain of musc/tend the rotator cuff of left shoulder, init Special Needs LATERAL, BEANBAG, ARTHREX (MARIO PARADA), REGENATEN PATCH EAGLE NEPHEW (JANET SCHWARTZ)GENERAL/INTERSCALENE BLOCK GLUCOSE-GLUCOMETER Routine 08/19/2023 12 :28 PM EST POTASSIUM STAT 08/19/2023 12:07 PM EST documented in this encounter Results * Glucose-Glucometer (08/19/2023 12:28 PM EST) Glucose Glucometer 113 71 - 139 mg/dL 08/19/2023 12:34 PM EST [facility] Serum 08/19/2023 12:2 8 PM EST 08/19/2023 12:34 PM EST us Donald Josue MD LAB BLOOD ORDERABLES Final Result [facility] [address] [place] [address] [address] * Potassium (08/19/2023 12:07 PM EST) Potassium 4.0 3.5 - 5.1 mmol/L 08/19/2023 12:44 PM EST [facility] Comment:Falsely elevated pot assium can occur in patients with high WBC or platelet counts. Plasma BLOOD SPECIMEN FROM PATIENT / Unknown 08/19/2023 12:07 PM EST 08/19/2023 12:22 PM EST Toyin Cope MD LAB BLOOD ORDERABLES Final Result [address] [address] [place] [address] [place] [address] documented in this encounter Visit Diagnoses Diagnosis Left Rotator cuff tear s/p repair 08/19/23- Primary Left Rotator cuff tear s/p repair 08/19/23 Strain of musc/tend the rotator cuff of left shoulder, init documented in this encounter Admitting Diagnoses Diagnosis Strain of musc/tend the rotator cuff of left shoulder, init documented in this encounter Administered Medications Inactive Administered Medications - up to 3 most recent administrations Medication Order MAR Action Action Date Dose Rate Site acetaminophen (TYLENOL) tablet 1,000 mg 1,000 mg, Oral, Once, On Tue08/19/23 at 1130, For 1 dose, Hold if taken prior to arrival. Give with a sip of water., Pre-op, Routine Given 08/19/2023 12:24 PM EST 1,000 mg albuterol-ipratropium (DUO-NEB) 0.5-2.5 mg/3 mL nebulizer 3 mL 3 mL, Nebulization, PRN, Shortness of Air, or wheezing or SaO2 less than 90%. May Repeat x 1 dose, Starting on Tue08/19/23 at 1517, 3 mL, Until Tue08/19/23 at 1953, PACU, Routine, With Tx Panel? Yes albuterol-ipratropium (DUO-NEB) 0.5-2.5 mg/3 mL nebulizer 3 mL 3 mL, Nebulization, Once, On Tue08/19/23 at 1630, For 1 dose, 3 mL, Routine Given 08/19/2023 4:25 PM EST 3 mLs ceFAZolin 2 g/50 mL in D5W 2 g, Intravenous, at 120 mL/hr, once within 60 min pre-incision, Starting on Tue08/19/23 at 1122, For 1 dose, Begin administration within 60 minutes prior to incision. For cases involving a tourniquet: Infuse the entire dose(s) of antibiotic PRIOR to inflating the tourniquet., 60 mL, Administer over 30 Minutes, Until Tue08/19/23 at 1408, Pre-op, RoutineIndications:Surgic al Prophylaxis New Bag 08/19/2023 1:38 PM EST 2 g 120 mL/hr celecoxib (CeleBREX) capsule 200 mg 200 mg, Oral, Once, On Tue08/19/23 at 1130, For 1 dose, Give with a sip of water., Pre-op, Routine Given 08/19/2023 12:24 PM EST 200 mg dexAMETHasone (DECADRON) injection 4 mg 4 mg, Intravenous, at 12 mL/hr, Once, On Tue08/19/23 at 1145, For 1 dose, 1 mL, Administer over 5 Minutes, Pre-op, Routine Given 08/19/2023 12:24 PM EST 4 mg 12 mL/hr diphenhydrAMINE (BENADRYL) injection 12.5 mg 12.5 mg, Intravenous, Once as needed, Itching, Starting on Tue08/19/23 at 1517, For 1 dose, 0.25 mL, Until Tue08/19/23 at 1953, PACU, Routine EPINEPHrine PF (ADRENALIN) injection Intra-op PRN, Starting on Tue08/19/23 at 1456, Until Tue08/19/23 at 1547, Intra-op, Routine Given 08/19/2023 2:56 PM EST 1 mg Left Shoulder famotidine (PEPCID) injection 20 mg 20 mg, Intravenous, Once, On Tue08/19/23 at 1145, For 1 dose, 2 mL, Pre-op, Routine Given 08/19/2023 12:24 PM EST 20 mg fentaNYL (PF) (SUBLIMAZE) injection 100 mcg 100 mcg, Intravenous, Once, On Tue08/19/23 at 1145, For 1 dose, 2 mL, Pre-op, Routine Given 08/19/2023 1:12 PM EST 50 mcg hydrALAZINE (APRESOLINE) injection 5 mg 5 mg, Intravenous, Every 10 min PRN, Other, High Blood Pressure, Maximum Cumulative Dose 20 mg, Starting on Tue08/19/23 at 1517, Give for Heart Rate 60 to 80 BPM., 0.25 mL, Until Tue08/19/23 at 1952, PACU, Routine, Systolic BP Greater Than (mmHg): 160, Diastolic BP greater than: 90 HYDROmorphone (DILAUDID) injection 0.5 mg 0.5 mg, Intravenous, Every 10 min PRN, Severe pain, Starting on Tue08/19/23 at 1517, Maximum cumulative dose 3 mg. For PACU use ONLY, 0.5 mL, Until Tue08/19/23 at 1952, PACU, Routine labetalol (NORMODYNE,TRANDATE) injection 5 mg 5 mg, Intravenous, Every 5 min PRN, Maximum Cumulative Dose 20 mg, Starting on Tue08/19/23 at 1517, For 4 doses, Give for Heart Rate 81 to 100 BPM., 1 mL, Until Tue08/19/23 at 1952, PACU, Routine, Systolic BP Greater Than (mmHg): 160, Diastolic BP greater than: 90 lactated ringers infusion Intravenous, at 25 mL/hr, Continuous, Starting on Tue08/19/23 at 1200, KVO, 1,000 mL, Until Tue08/19/23 at 1952, Pre-op, Routine New Bag 08/19/2023 2:48 PM EST 25 mL/hr Intraop Orders continued from Pre-op 08/19/2023 1:43 PM ES T 25 mL/hr New Bag 08/19/2023 12:24 PM EST 25 mL/hr lidocaine injection 1% 1 mL, Intradermal, Once as needed, Other, for patient comfort with venipuncture, Starting on Tue08/19/23 at 1147, For 1 dose, Create 0.1 to 0.3 mm bleb to anesthetize site prior to venipuncture., 10 mL, Until Tue08/19/23 at 1952, Pre-op, Routine Midazolam (PF) (VERSED) injection 2 mg 2 mg, Intravenous, PRN, May repeat x 1 dose, Starting on Tue08/19/23 at 1141, For 2 doses, 2 mL, Until Tue08/19/23 at 1952, Pre-op, Routine Given 08/19/2023 1:12 PM EST 1 mg Morphine (PF) injection 2 mg 2 mg, Intravenous, Every 10 min PRN, moderate pain, Starting on Tue08/19/23 at 1517, Maximum cumulative dose 20 mg. For PACU use ONLY., 0.5 mL, Until Tue08/19/23 at 1953, PACU, Routine ondansetron (ZOFRAN) injection 4 mg 4 mg, Intravenous, Every 15 min PRN, Nausea, Vomiting, Maximum Cumulative Dose 8 mg, Starting on Tue08/19/23 at 1517, For 2 doses, 2 mL, Until Tue08/19/23 at 1953, PACU, Routine ondansetron (ZOFRAN) injection 4 mg 4 mg, Intravenous, Once, On Tue08/19/23 at 1145, For 1 dose, 2 mL, Pre-op, Routine Given 08/19/2023 12:24 PM EST 4 mg tranexamic acid (CYKLOKAPRON) 1000 mg/60 mL ivpb infusion 1,000 mg (1 g), Intravenous, at 120 mL/hr, Once, On Tue08/19/23 at 1130, For 1 dose, Complete infusion 20 minutes prior to incision, 60 mL, Administer over 30 Minutes, Pre-op, RoutineIndications:Orthopedic Joint Procedure-Shoulder New Bag 08/19/2023 2:05 PM EST 1,000 mg 120 mL /hr documented in this encounter Active and Recently Administered Medications Times are shown in EST. Scheduled Medication Order 08/17/2023 08/18/2023 08/19/2023 acetaminophen (TYLENOL) tablet 1,000 mg (COMPLETED) 1,000 mg, Oral, Once, On Tue08/19/23 at 1130, For 1 dose, Hold if taken prior to arrival. Give with a sip of water., Pre-op, Routine 1224 (Given - Provid er: Shani Oswald RN) albuterol-ipratropium (DUO-NEB) 0.5-2.5 mg/3 mL nebulizer 3 mL (COMPLETED) 3 mL, Nebulization, Once, On Tue08/19/23 at 1630, For 1 dose, 3 mL, Routine 1625 (Given - Provid er: Alphonso Wilhelm, RT) ceFAZolin 2 g/50 mL in D5W (COMPLETED) 2 g, Intravenous, at 120 mL/hr, once within 60 min pre-incision, Starting on Tue08/19/23 at 1122, For 1 dose, Begin administration within 60 minutes prior to incision. For cases involving a tourniquet: Infuse the entire dose(s) of antibiotic PRIOR to inflating the tourniquet., 60 mL, Administer over 30 Minutes, Until Tue08/19/23 at 1408, Pre-op, Routine 1338 (New Bag - Prov ider: Shani Oswald RN)1408 (Due: Stopped - Provider: Shani Oswald RN) celecoxib (CeleBREX) capsule 200 mg (COMPLETED) 200 mg, Oral, Once, On Tue08/19/23 at 1130, For 1 dose, Give with a sip of water., Pre-op, Routine 1224 (Given - Provid er: Shani Oswald RN) dexAMETHasone (DECADRON) injection 4 mg (COMPLETED) 4 mg, Intravenous, at 12 mL/hr, Once, On Tue08/19/23 at 1145, For 1 dose, 1 mL, Administer over 5 Minutes, Pre-op, Routine 1224 (Given - Provid er: Shani Oswald RN) EPINEPHrine PF (ADRENALIN) injection 0.3 mg 0.3 mg, Intramuscular, Once, On Tue08/19/23 at 1145, For 1 dose, 0.3 mL, Pre-op, Routine 1145 (Due) famotidine (PEPCID) injection 20 mg (COMPLETED) 20 mg, Intravenous, Once, On Tue08/19/23 at 1145, For 1 dose, 2 mL, Pre-op, Routine 1224 (Given - Provid er: Shani Oswald RN) fentaNYL (PF) (SUBLIMAZE) injection 100 mcg (COMPLETED) 100 mcg, Intravenous, Once, On Tue08/19/23 at 1145, For 1 dose, 2 mL, Pre-op, Routine 1312 (Given - Provid er: Shani Oswald RN - Comment: Verbal order during nerve block per Dr. Randall) ondansetron (ZOFRAN) injection 4 mg (COMPLETED) 4 mg, Intravenous, Once, On Tue08/19/23 at 1145, For 1 dose, 2 mL, Pre-op, Routine 1224 (Given - Provid er: Shani Oswald RN) ROPivacaine (NAROPIN) 0.5 % injection 30 mL 30 mL, Epidural, Once, On Tue08/19/23 at 1145, For 1 dose, 30 mL, Pre-op, Routine 1145 (Due) tranexamic acid (CYKLOKAPRON) 1000 mg/60 mL ivpb infusion (COMPLETED) 1,000 mg (1 g), Intravenous, at 120 mL/hr, Once, On Tue08/19/23 at 1130, For 1 dose, Complete infusion 20 minutes prior to incision, 60 mL, Administer over 30 Minutes, Pre-op, Routine 1405 (New Bag - Prov ider: Montserrat Ho CRNA)1435 (Due: Stopped - Provider: Montserrat Ho CRNA) Continuous Medication Order 08/17/2023 08/18/2023 08/19/2023 lactated ringers infusion Intravenous, at 25 mL/hr, Continuous, Starting on Tue08/19/23 at 1200, KVO, 1,000 mL, Until Tue08/19/23 at 1953, Pre-op, Routine 1224 (New Bag - Prov ider: Shani Oswald RN)1343 (Intraop Orders continued from Pre-op - Provider: Montserrat Ho CRNA)1448 (New Bag - Provider: Montserrat Ho CRNA)1548 (Anesthesia Volume Adjustment - Provider: Montserrat Ho CRNA) PRN Medication Order 08/17/2023 08/18/2023 08/19/2023 albuterol-ipratropium (DUO-NEB) 0.5-2.5 mg/3 mL nebulizer 3 mL(Linked Group 1) 3 mL, Nebulization, PRN, Shortness of Air, or wheezing or SaO2 less than 90%. May Repeat x 1 dose, Starting on Tue08/19/23 at 1517, 3 mL, Until Tue08/19/23 at 1953, PACU, Routine, With Tx Panel? Yes diphenhydrAMINE (BENADRYL) injection 12.5 mg 12.5 mg, Intravenous, Once as needed, Itching, Starting on Tue08/19/23 at 1517, For 1 dose, 0.25 mL, Until Tue08/19/23 at 1953, PACU, Routine EPINEPHrine PF (ADRENALIN) injection (CANCELED) Intra-op PRN, Starting on Tue08/19/23 at 1456, Until Tue08/19/23 at 1547, Intra-op, Routine 1456 (Given - Provid er: Donald Josue MD - Comment: 1 amplule used per bag of lr total used 2) hydrALAZINE (APRESOLINE) injection 5 mg 5 mg, Intravenous, Every 10 min PRN, Other, High Blood Pressure, Maximum Cumulative Dose 20 mg, Starting on Tue08/19/23 at 1517, Give for Heart Rate 60 to 80 BPM., 0.25 mL, Until Tue08/19/23 at 195, PACU, Routine, Systolic BP Greater Than (mmHg): 160, Diastolic BP greater than: 90 HYDROcodone-acetaminophen (NORCO) 5-325 MG per tablet 1 tablet 1 tablet, Oral, Once as needed, Moderate pain, Severe pain, Starting on Tue08/19/23 at 1517, For 1 dose, Administer in PACU prior to discharge if the patient is having pain., Until Tue08/19/23 at 1952, PACU, Routine HYDROmorphone (DILAUDID) injection 0.5 mg 0.5 mg, Intravenous, Every 10 min PRN, Severe pain, Starting on Tue08/19/23 at 1517, Maximum cumulative dose 3 mg. For PACU use ONLY, 0.5 mL, Until Tue08/19/23 at 1952, PACU, Routine labetalol (NORMODYNE,TRANDATE) injection 5 mg 5 mg, Intravenous, Every 5 min PRN, Maximum Cumulative Dose 20 mg, Starting on Tue08/19/23 at 1517, For 4 doses, Give for Heart Rate 81 to 100 BPM., 1 mL, Until Tue08/19/23 at 1952, PACU, Routine, Systolic BP Greater Than (mmHg): 160, Diastolic BP greater than: 90 lidocaine injection 1% 1 mL, Intradermal, Once as needed, Other, for patient comfort with venipuncture, Starting on Tue08/19/23 at 1147, For 1 dose, Create 0.1 to 0.3 mm bleb to anesthetize site prior to venipuncture., 10 mL, Until Tue08/19/23 at 1953, Pre-op, Routine Midazolam (PF) (VERSED) injection 2 mg 2 mg, Intravenous, PRN, May repeat x 1 dose, Starting on Tue08/19/23 at 1141, For 2 doses, 2 mL, Until Tue08/19/23 at 1953, Pre-op, Routine 1312 (Given - Provid er: Shani Oswald RN - Comment: Verbal order per Dr. Randall during nerve block) Morphine (PF) injection 2 mg 2 mg, Intravenous, Every 10 min PRN, moderate pain, Starting on Tue08/19/23 at 1517, Maximum cumulative dose 20 mg. For PACU use ONLY., 0.5 mL, Until Tue08/19/23 at 1952, PACU, Routine ondansetron (ZOFRAN) injection 4 mg 4 mg, Intravenous, Every 15 min PRN, Nausea, Vomiting, Maximum Cumulative Dose 8 mg, Starting on Tue08/19/23 at 1517, For 2 doses, 2 mL, Until Tue08/19/23 at 1952, PACU, Routine Linked Groups Order Group 1: albuterol-ipratropium (DUO-NEB) 0.5-2.5 mg/3 mL nebulizer 3 mLJump to med 3 mL, Nebulization, PRN, Shortness of Air, or wheezing or SaO2 less than 90%. May Repeat x 1 dose, Starting on Tue08/19/23 at 1517, 3 mL, Until Tue08/19/23 at 1952, PACU, Routine, With Tx Panel? Yes And Nebulizer Treatment PRN (CANCELED) Routine, As needed, Starting on Tue08/19/23 at 1517, Until Specified, PACU documented in this encounter Care Teams Quality Management Coordinator Relationship Specialty Start Date End Date Keanu Brooks DO PCP - General Family Medicine 01/14/20 documented as of this encounter
--- OUTSIDE RECORDS SUMMARY | 2024-10-10 22:51 | XMS_ITS | Encounter Summary ---
Author Organization [facility] Address [address] [place] [address] Care Team Providers Care Hot Header Operator Name Role Phone Keanu Brooks DO Primary Care Provider + [phone] Reason for Visit * Reason Onset Date Comments Med Refill 07/31/2019 Encounter Details Date Type Department Care Team (Late st Contact Info) Description 07/31/2019 Refill [facility] [address] [facility] [address] [address] Keanu Brooks DO [address] [employer] [address] [address] Social History Tobacco Use Types [...] Description 01/17/2025 9:00 AM EDT Office Visit [facility] [address] [facility] [address] [address] Keanu Brooks DO [address] [employer] [address] [address] documented as of this encounter Visit Diagnoses Not on filedocumented in this encounter Care Teams Hot Header Operator Relationship Specialty Start Date End Date Keanu Brooks DO [address] [place] [address] PCP - General Family Medicine 12/11/18 documented as of this encounter
--- OUTSIDE RECORDS SUMMARY | 2024-10-10 22:51 | XMS_ITS | Encounter Summary ---
Author Organization [facility] Address [address] [place] [address] Care Team Providers Care Home Visitor Home Base Head Start Name Role Phone Keanu Brooks DO Primary Care Provider [phone] Reason for Visit * Reason Comments Cough Nasal congestion, SO B x 1 week Encounter Details Date Type Department Care Team (Late st Contact Info) Description 09/08/2024 3:15 PM EST Office Visit [address] [place] [address] Debby Enamorado, TANG [address] [facility] [address] [place] [address] Exacerbation of asthma, unspecified asthma severity, unspecified whether persistent (Primary Dx); Cough, unspecified type Social History Tobacco Use Types [...] 09/08/2024 3:20 PM ES T Respiratory Rate - - Oxygen Saturation 96% 09/08/2024 3:20 PM EST Inhaled Oxygen Concentration - - Weight 89.9 kg (198 lb 3.1 oz) 09/08/2024 3:20 P M EST Height 172.7 cm (5' 8 ) 09/08/2024 3:20 PM EST Body Mass Index 30.14 09/08/2024 3:20 PM EST documented in this encounter Functional Status [...] this encounter Patient Instructions * Patient Instructions* Debby Enamorado APRN - 09/08/2024 4:27 PM EST Instructed on med & se OTC pain/fever med as needed Fluids To ER if symptoms change/worsen documented in this encounter Progress Notes * Debby Enamorado APRN - 09/08/2024 5:03 PM EST Patient Identification: Name: Yovanny Steve Age: 64 yr/o Gender: male : 1960 PCP: Keanu Brooks DO Chief Complaint: Yovanny Steve is presenting today for Cough (Nasal congestion, SOB x 1 week) . History of Present Illness: Cough This is a new problem. Episode onset: 1 week or so. The problem has been gradually worsening. The cough is Non-productive. There has been no fever. Associated symptoms include shortness of breath. Heis not a smoker. His past medical history is significant for COPD. History, Medications, Allergies, and Review of Symptoms: [...] laminectomy Current Medications: Outpatient Medications as of 09/08/2024 Medication Sig Dispense Refill ??? albuterol (PROVENTIL [...] Take 300 mg by mouth nightly. ??? triamcinolone (KENALOG) 0.1 % cream Apply topically 2 (two) times daily Apply to affected area BID.. 15 g 0 ??? vitamin E 100 UNIT capsule Take 100 Units by mouth daily. Allergies: Allergies as of 09/08/2024 Review status set to Review Complete by Debby Enamorado APRN on 09/08/2024 No Known Allergies Family Medical History: Family History Problem Relation Name Age of Onset ??? Other Mother pneumonia ??? Cancer, Other or Unknown Type Father prostate Social History: Social History Tobacco Use ??? Smoking status: Never ??? Smokeless tobacco: Never Vaping Use ??? Vaping status: Never Used Substance Use Topics ??? Alcohol use: Yes Comment: socially ??? Drug use: No E-cigarette/Vaping Use: Never User Review of Symptoms: Review of Systems Respiratory: Positive for cough and shortness of breath. Physical Exam: BP (!) 136/66 Pulse (!) 112 Temp 98.5 ??F (36.9 ??C) (Oral) Ht 5' 8 (1.727 m) Wt 198 lb 3.1 oz (89.9 kg) SpO2 96% BMI 30.14 kg/m?? Physical Exam Vitals and nursing note reviewed. Pulmonary: Effort: Pulmonary effort is normal. Comments: Decreased breath sound and wheezes. After neb treatment breath sounds increased, still scattered wheeze occasionally. Skin: General: Skin is warm and dry. Neurological: Mental Status: He is alert and oriented to person, place, and time. Psychiatric: Mood and Affect: Mood normal. Behavior: Behavior normal. Thought Content: Thought content normal. Judgment: Judgment normal. Assessment/Plan: Diagnoses and orders/medications from this encounter 1. Exacerbation of asthma, unspecified asthma severity, unspecified whether persistent albuterol-ipratropium (DUO-NEB) 0.5-2.5 mg/3 mL nebulizer 3 mL prednisoLONE 15 MG/5ML solution 30 mg predniSONE (DELTASONE) 20 MG tablet amoxicillin-clavulanate (AUGMENTIN) 500-125 MG albuterol HFA (PROVENTIL HFA) 108 (90 Base) MCG/ACT inhaler albuterol (PROVENTIL) (2.5 MG/3ML) 0.083% nebulizer solution 2. Cough, unspecified type IPOC SARS-CoV-2 FLU A/B PCR Reason for Testing: Symptomatic Rapid Test Showing COVID Symptoms IPOC SARS-CoV-2 FLU A/B PCR Reason for Testing: Symptomatic Rapid Test Showing COVID Symptoms benzonatate (TESSALON) 200 MG capsule Encounter Medications Signed Prescriptions Disp Refills ??? predniSONE (DELTASONE) 20 MG tablet 5 tablet 0 Sig: Take 1 tablet by mouth daily for 5 days. ??? amoxicillin-clavulanate (AUGMENTIN) 500-125 MG 20 tablet 0 Sig: Take 1 tablet by mouth 2 (two) times daily for 10 days. ??? albuterol HFA (PROVENTIL HFA) 108 (90 Base) MCG/ACT inhaler 1 each 0 Sig: Inhale 2 puffs into the lungs every 4 (four) hours as needed for Wheezing or Shortness of Air. ??? albuterol (PROVENTIL) (2.5 MG/3ML) 0.083% nebulizer solution 30 each 0 Sig: Inhale 1 ampule by nebulization every 4 (four) hours as needed for Wheezing or Shortness of Air. ??? benzonatate (TESSALON) 200 MG capsule 30 capsule 0 Sig: Take 1 capsule by mouth 3 (three) times daily as needed for Cough. Results this visit (if any) Results for orders placed or performed in visit on 09/08/24 IPOC SARS-CoV-2 FLU A/B PCR Reason for Testing: Symptomatic Rapid Test Showing COVID Symptoms Specimen: Nasopharyngeal; Tissue Result Value Ref Range COVID Result IPOC PCR Not Detected Not Detected Influenza A PCR - IPOC Not Detected Not Detected Influenza B PCR - IPOC Not Detected Not Detected Follow-up (if any) No follow-ups on file. Medical Decision Making documented in this encounter Plan of Treatment Upcoming Encounters Date Type Department Care Team (Late st Contact Info) Description 01/24/2025 1:40 PM EDT Office Visit [facility] [address] [place] [address] [address] [place] [address] Damien Cárdenas APRN [address] [place], [place] [id number] documented as of this encounter Procedures Procedure Name Priority Date/Time Associated Diagnosis Comments IPOC SARS-COV-2 FLU A/B PCR Routine 09/08/2024 3:25 PM EST Cough, unspecified type documented in this encounter Results * IPOC SARS-CoV-2 FLU A/B PCR Reason for Testing: Symptomatic Rapid Test Showing COVID Symptoms (09/08/2024 3:25 PM EST) COVID Result IPOC PCR Not Detected Not Detected 09/08/2024 3:48 PM EST LC MA/ICC Influenza A PCR - IPOC Not Detected Not Detected 09/08/2024 3:48 PM EST LC MA/ICC Influenza B PCR - IPOC Not Detected Not Detected 09/08/2024 3:48 PM EST LC MA/ICC Tissue NASOPHARYNGEAL SWAB / Unknown Non-blood Collection / Unknown 09/08/2024 3:25 PM EST 09/08/2024 3:26 PM EST Narrative LC HOLLISTED - 09/08/2024 3:48 PM EST This test utilizes real-time polymerase [...] Authorization from the Food and Drug Administration. Sabine Dunham MD MICROBIOLOGY - GENERAL ORDERAB LES Final Result LC MORENO/TED [address] [facility], [place] [address] documented in this encounter Visit Diagnoses Diagnosis Exacerbation of asthma, unspecified asthma severity, unspecified whether persistent- Primary Cough, unspecified type documented in this encounter Administered Medications Inactive Administered Medications - up to 3 most recent administrations Medication Order MAR Action Action Date Dose Rate Site albuterol-ipratropium (DUO-NEB) 0.5-2.5 mg/3 mL nebulizer 3 mL 3 mL, Nebulization, Once, On 09/08/24 at 1630, For 1 dose, 3 mL, RoutineIndications:Exacerbation of asthma, unspecified asthma severity, unspecified whether persistent Given 09/08/2024 4:42 PM EST 3 mLs prednisoLONE 15 MG/5ML solution 30 mg 30 mg, Oral, Once, On 09/08/24 at 1630, For 1 dose, 10 mL, RoutineIndications:Exacerbation of asthma, unspecified asthma severity, unspecified whether persistent Given 09/08/2024 4:43 PM EST 30 mg documented in this encounter Care Teams Home Visitor Home Base Head Start Relationship Specialty Start Date End Date Keanu Brooks DO PCP - General Family Medicine 01/14/20 documented as of this encounter
--- OUTSIDE RECORDS SUMMARY | 2024-10-10 22:51 | XMS_ITS | Encounter Summary ---
Author Organization [facility] Address [address] [place] [address] Care Team Providers Care Mechanic'S Assistant Name Role Phone Keanu Brooks DO Primary Care Provider + [phone] Reason for Visit * Reason Onset Date Comments Med Refill 01/17/2019 Encounter Details Date Type Department Care Team (Late st Contact Info) Description 01/17/2019 Refill [facility] [address] [address] Keanu Brooks DO [address] [address] Social History Tobacco Use Types [...] Visit [facility] [address] [address] Keanu Brooks DO [address] [address] documented as of this encounter Visit Diagnoses Not on filedocumented in this encounter Care Teams Mechanic'S Assistant Relationship Specialty Start Date End Date Keanu Brooks DO [address] [place] [address] PCP - General Family Medicine 12/11/18 documented as of this encounter
--- OUTSIDE RECORDS SUMMARY | 2024-10-10 22:51 | XMS_ITS | Encounter Summary ---
Author Organization [facility] Address [address] [place] [address] Care Team Providers Care Wire Winder Name Role Phone Keanu Brooks DO Primary Care Provider + [phone] Reason for Visit * Reason Comments Follow-up med check and flu in jection Hypertension Gout last ov started allo purionol Encounter Details Date Type Department Care Team (Latest Contact Info) Description 07/23/2019 1:45 PM EST Office Visit [facility] [address] [place] [phone] Keanu Brooks DO [address] [address] Essential hypertension (Primary Dx); Immunization due; Idiopathic chronic gout of multiple sites without tophus; Primary osteoarthritis involving multiple joints; Other male erectile dysfunction Social History Tobacco [...] Sign Reading Time Taken Comments Blood Pressure 130/80 07/23/2019 1:54 PM EST Pulse 92 07/23/2019 1:54 PM EST Temperature 36.8 ??C (98.3 ??F) 07/23/2019 1:54 PM ES T Respiratory Rate - - Oxygen Saturation 96% 07/23/2019 1:54 PM EST Inhaled Oxygen Concentration - - Weight 94.3 kg (208 lb) 07/23/2019 1:54 PM EST Height - - Body Mass Index - - documented in this encounter Progress Notes * Keanu Brooks, - 07/23/2019 1:45 PM EST Luis Steve is a 58 y.o. male. Presents today for Chief Complaint Patient presents with ??? Follow-up med check and flu injection ??? Hypertension ??? Gout last ov started allopurionol Hypertension This is a chronic problem. The current episode started more than 1 year ago. The problem is unchanged. The problem is controlled. Pertinent negatives include no chest pain, orthopnea, palpitations, peripheral edema, PND or shortness of breath. Risk factors for coronary artery disease include male gender. Past treatments include JEANINE inhibitors and diuretics. Current antihypertension treatment includes diuretics and JEANINE inhibitors. The current treatment provides moderate improvement. There are nocompliance problems. Osteoarthritis Presents for initial visit. The disease course has been fluctuating. He complains of pain. Affectedlocation: left hand pain. His past medical history is significant for osteoarthritis. Treatments tried: copper glove, otc topicals. Lower Extremity Issue This is a recurrent problem. The current episode started more than 1 month ago. The problem occurs intermittently. The problem has been unchanged. Pertinent negatives include no chest pain. Exacerbated by: when 1st gets up and laying down bottom of feet hurt. Treatments tried: stretching. The treatment provided mild relief. Gout No gout flares since last seen, started allopurinol 6 months ago ED Patient with ED, takes cialis with relief. Review of Systems Respiratory: Negative for shortness of breath. Cardiovascular: Negative for chest pain, palpitations, orthopnea and PND. Patient Active Problem List Diagnosis ??? Asthma [...] to Visit Medication Sig Dispense Refill ??? DULERA 200-5 MCG/ACT inhaler INHALE 2 PUFFS TWICE DAILY. RINSE MOUTH AFTER USE. 3 ??? fluticasone (FLONASE) 50 MCG/ACT nasal spray 2 sprays by Each Nare route Daily. 2 ??? lisinopril-hydrochlorothiazide (PRINZIDE,ZESTORETIC) 20-25 MG per tablet Take 1 tablet by mouthDaily. 90 tablet 3 ??? SPIRIVA RESPIMAT 2.5 MCG/ACT aerosol solution inhaler INHALE 2 PUFFS ONCE DAILY 1 ??? Testosterone Cypionate (DEPOTESTOTERONE CYPIONATE) 200 MG/ML injection INJECT O.5MG EVERY WEEK 3 ??? traZODone (DESYREL) 100 MG tablet Take 1 tablet by mouth every night at bedtime. 90 tablet 3 ??? albuterol sulfate HFA 108 (90 Base) MCG/ACT inhaler Inhale 2 puffs As Needed. every 4 to 6 hours 0 No current facility-administered medications on file prior to visit. Objective Vitals: 07/23/19 1354 BP: 130/80 Pulse: 92 Temp: 98.3 ??F (36.8 ??C) SpO2: 96% Weight: 94.3 kg (208 lb) Physical Exam Constitutional: He appears well-developed and well-nourished. HENT: Head: Normocephalic and atraumatic. Neck: Neck supple. No JVD present. No thyromegaly present. Cardiovascular: Normal rate, regular rhythm and normal heart sounds. Exam reveals no gallop and no friction rub. No murmur heard. Pulmonary/Chest: Effort normal and breath sounds normal. No respiratory distress. He has no wheezes. He has no rales. Abdominal: Soft. Bowel sounds are normal. He exhibits no distension. There is no tenderness. There is no rebound and no guarding. Musculoskeletal: He exhibits no edema. Neurological: He is alert. Skin: Skin is warm and dry. Psychiatric: He has a normal mood and affect. His behavior is normal. Nursing note and vitals reviewed. Assessment/Plan Yovanny was seen today for follow-up, hypertension and gout. Diagnoses and all orders for this visit: Essential hypertension - Basic Metabolic Panel Immunization due - Flucelvax Quad=>4Years (PFS) - Pneumococcal Conjugate Vaccine 13-Valent All Idiopathic chronic gout of multiple sites without tophus - Uric Acid Primary osteoarthritis involving multiple joints Other male erectile dysfunction - Discontinue: tadalafil (CIALIS) 20 MG tablet; Take 1 tablet by mouth As Needed for erectile dysfunction. - tadalafil (CIALIS) 20 MG tablet; Take 1 tablet by mouth As Needed for erectile dysfunction. -continue allopurinol - recheck uric acid -hypertension - controlled, continue medications -oa - can try cmopound crm; Tylenol prn pain -ED - had down load good rx logan, gave rx for cialis -up date immunizations -Follow up: 12 months and prn * Keanu Brooks DO - 07/23/2019 1:45 PM EST Call results to patient. Kidney function decline has improved. Uric acid level (causes gout and can worsen kidney function) has dropped with allopurinol, but not low enough. Have take 3 caps of 100mg allopurinol daily, when out go up to 300mg cap daily. Come forlab only 3 months to recheck uric acid and bmp dx hyperuricemia. documented in this encounter Plan of Treatment Upcoming Encounters Date Type Department Care Team (Late st Contact Info) Description 01/17/2025 9:00 AM EDT Office Visit [facility] [address] [phone] Keanu Brooks DO [address] [address] documented as of this encounter Procedures Procedure Name Priority Date/Time Associated Diagnosis Comments URIC ACID Routine 07/23/2019 2:58 PM EST Idiopathic chronic gout of multiple sites without tophus BASIC METABOLIC PANEL Routine 07/23/2019 2:58 PM EST Essential hypertension documented in this encounter Results * (ABNORMAL) Basic Metabolic Panel (07/23/2019 2:58 PM EST) Glucose 85 65 - 99 mg/dL [facility] BUN 20 8 - 27 mg/dL [facility] Creatinine 1.27 0.76 - 1.27 mg/dL [facility] eGFR Non Am 61 >59 mL/min/1.7 3 [facility] eGFR Am 71 >59 mL/min/1.7 3 [facility] BUN/Creatinine Ratio 16 10 - 24 [facility] Sodium 140 134 - 144 mmol/L [facility] Potassium 4.4 3.5 - 5.2 mmol/L [facility] Chloride 101 96 - 106 mmol/L [facility] Total CO2 19(L) 20 - 29 mmol/L [facility] Calcium 9.6 8.6 - 10.2 mg/dL [facility] Blood 07/23/2019 2:58 PM EST 07/23/[address] [facility] (AMBULATORY) - 07/24/2019 8:12 AM EST Performed at: ??01 - [address] ??[id number] Electric Accounting Machine Operator: Willie Ireland PhD, Phone: ??[phone] Keanu Brooks DO LAB BLOOD ORDERABLES Final R esult [facility] [employer] (AMBULATORY) [address] [place] [address], [facility] [address] [place] [address], * Uric Acid (07/23/2019 2:58 PM EST) Uric Acid 7.4 3.7 - 8.6 mg/dL [facility] Comment:Therapeutic target f or gout patients: <6.0 Blood 07/23/2019 2:58 PM EST 07/23/2019 Narrative [facility] [facility] (AMBULATORY) - 07/24/2019 8:12 AM EST Performed at: ?? - [facility], [place], [place] ??[id number] Electric Accounting Machine Operator: Willie Ireland PhD, Phone: ??[phone] Keanu Brooks DO LAB BLOOD ORDERABLES Final R esult [facility] (AMBULATORY) [address] [place] [address], [facility] [address] [place] [address], documented in this encounter Visit Diagnoses Diagnosis Essential hypertension- Primary Unspecified essential hypertension Immunization due Idiopathic chronic gout of multiple sites without tophus Primary osteoarthritis involving multiple joints Other male erectile dysfunction documented in this encounter Care Teams Wire Winder Relationship Specialty Start Date End Date Keanu Brooks DO [address] [place] [address] PCP - General Family Medicine 12/11/18 documented as of this encounter
--- OUTSIDE RECORDS SUMMARY | 2024-10-10 22:51 | XMS_ITS | Encounter Summary ---
Author Organization [facility] Address [address] [place] [address] Care Team Providers Care Collections Specialist Name Role Phone Keanu Brooks DO Primary Care Provider + [phone] Encounter Details Date Type Department Care Team (Late st Contact Info) Description 08/29/2019 Telephone [facility] [address] [phone] Keanu Brooks DO [address] [phone] Social History Tobacco Use Types Packs/Day Years [...] Telephone Encounter - Maday Ferguson MA - 08/30/2019 9:01 AM EST Pt informed. * Telephone Encounter - Keanu Brooks DO - 08/30/2019 8:39 AM EST Can try another pharmacy to see if they have that mfg. RRJ * Telephone Encounter - Maday Ferguson MA - 08/29/2019 11:36 AM EST Please advise. documented in this encounter Plan of Treatment Upcoming Encounters Date Type Department Care Team (Late st Contact Info) Description 01/17/2025 9:00 AM EDT Office Visit [facility] [address] [facility] [address] [place] [phone] Keanu Brooks DO [address] [address] documented as of this encounter Visit Diagnoses Not on filedocumented in this encounter Care Teams Collections Specialist Relationship Specialty Start Date End Date Keanu Brooks DO [address] [address] PCP - General Family Medicine 12/11/18 documented as of this encounter
--- OUTSIDE RECORDS SUMMARY | 2024-10-10 22:51 | XMS_ITS | Encounter Summary ---
Author Organization [facility] Address [address] [place] [address] Care Team Providers Care Roller Coaster Operator Name Role Phone Keanu Brooks DO Primary Care Provider + [phone] Reason for Visit * Reason Comments Med Refill Encounter Details Date Type Department Care Team (Late st Contact Info) Description 08/21/2019 Refill [facility] [address] [phone] Keanu Brooks DO [address] [address] Other insomnia Social History Tobacco [...] [facility] [address] [address] Keanu Brooks DO [address] [address] documented as of this encounter Visit Diagnoses Diagnosis Other insomnia documented in this encounter Care Teams Roller Coaster Operator Relationship Specialty Start Date End Date Keanu Brooks DO [address] [place] [address] PCP - General Family Medicine 12/11/18 documented as of this encounter
--- OUTSIDE RECORDS SUMMARY | 2024-10-10 22:51 | XMS_ITS | Encounter Summary ---
Author Organization [facility] Address [address] [place] [address] Care Team Providers Care Hardware Supplies Sales Representative Name Role Phone Keanu Brooks DO Primary Care Provider [phone] Reason for Referral * Consultation (Routine) - Closed Specialty Diagnoses / Procedures Referred By Moshe denis Referred To Contact Orthopedic Surgery Diagnoses Strain of musc/tend the rotator cuff [place] [id number] [place] [address] Phone: tel: [place]: [place] [address] [place] [address] Phone: tel: fax: Referral ID Status Reason Start Date Expiration Date Visits Requested Visits Authorized [id number] Closed Physician Preference 08/19/2023 09/18/2024 1 1 Reason for Visit * Auth/Cert (Routine) Specialty Diagnoses / Procedures Referred By Moshe denis Referred To Contact Diagnoses Strain of musc/tend the rotator cuff of left shoulder, init [S46.012A] Procedures ARTHROSCOPIC REPAIR ROTATOR CUFF Referral ID Status Reason Start Date Expiration Date Visits Re quested Visits Authorized [id number] 1 1 Encounter Details Date Type Department Care Team (Late st Contact Info) Description 08/19/2023 11:12 AM EST - 08/19/2023 5:53 PM EST Hospital Encounter [facility] Periop Services [address] [place] [address] [place] [address] [facility] [address] [place] [address] Left Rotator cuff tear s/p repair 08/19/23 (Primary Dx) Discharge Disposition: Home or Self Care Social History Tobacco Use Types Packs/Day Years [...] of Assessment Author No 03/30/2022 4:27 PM Kristy Jenkins RN * Patient's Vision Adequate to Safely Complete Daily Activities Answer Date of Assessment Author Yes 03/30/2022 4:27 PM Kristy Jenkins RN * Do You Have Serious Difficulty Walking or Climbing Stairs? Answer Date of Assessment Author No 03/30/2022 4:27 PM Kristy Jenkins RN * Do You Have Difficulty Dressing or Bathing? Answer Date of Assessment Author No 03/30/2022 4:27 PM Kristy Jenkins RN * Because of a Physical, Mental, or Emotional Condition, Do You Have Serious Difficulty Concentrating, Remembering or Making a Decision? Answer Date of Assessment Author No 03/30/2022 4:27 PM Kristy Jenkins RN documented as of this encounter Mental Status * Because of a Physical, Mental or Emotional Problem, Do You Have Difficulty Doing Errands Alone Suchas Visiting a Doctor's Office or Shopping? Answer Entry Date Author No 03/30/2022 4:27 PM Kristy Jenkins RN documented in this encounter Discharge Instructions [...] Care Everywhere. * General Anesthesia (Discharge Care) (Bruneian) documented in this encounter Medications at Time of Discharge albuterol (PROVENTIL HFA;VENTOLIN HFA) 108 (90 BASE) MCG/ACT inhaler Inhale 2 puffs into the lungs every 6 (six) hours as needed for Wheezing . allopurinol (ZYLOPRIM) 300 MG tablet Take 300 mg by mouth daily . 07/31/2019 fexofenadine (GBABIE) 180 MG tablet Take 180 mg by [...] Yovanny Hyde High 63 yr/o 1960 male [id number] Current Vital Signs: BP (!) 155/77 (BP [...] opinions, or Internet searches. Yovanny Steve 1960 [id number] DIAGNOSIS Left shoulder high-grade partial rotator cuff [...] Name Date COVID-19 COMIRNATY/PFIZER 12 AND OLDER 08/17/2023 COVID-19 Pfizer PURPLE Ages 12 and [...] shoulder rotator cuff repair, biceps tenodesis EMR Dragon/Burrer Marker Axle disclaimer: Much of this encounter note is an electronic recycling attendant/translation of spoken language to printed text. The [...] opinions, or Internet searches. Yovanny Steve 1960 [id number] DIAGNOSIS Left shoulder high-grade partial rotator cuff [...] Date ??? ANTERIOR CERVICAL DISCECTOMY W/ FUSION 2012 C6 - C8 welded together ??? COLONOSCOPY [...] Name Date COVID-19 COMIRNATY/PFIZER 12 AND OLDER [id number] 08/17/2023 COVID-19 Pfizer PURPLE Ages 12 and [...] shoulder rotator cuff repair, biceps tenodesis EMR Dragon/Burrer Marker Axle disclaimer: Much of this encounter note is an electronic recycling attendant/translation of spoken language to printed text. The [...] from family. Pt transported out of facility viaeelchair for discharge home via private vehicle with girlfriend. * Operative Report - Donald Josue MD - 08/19/2023 1:48 PM EST ORTHOPAEDIC OPERATIVE/PROCEDURE REPORT LOCATION: [facility] MAIN OR PATIENT NAME: Yovanny Steve [...] Role: * Donald Josue MD - Primary Road Machine Operator: [address] Machine Operator essential for patient positioning, prepping and draping, arm manipulation, and wound closure Procedure(s) Performed: Procedure(s) and Anesthesia Type: 1. Left shoulder arthroscopic rotator cuff repair (32275), 2. Biceps tenodesis (44733) Type of Anesthesia: General + Interscalene block [...] Implant Name Type Inv. Item Serial No. Finishing Trimmer Lot No. LRB No. Used Action IMPLANT TACK LOOP [id number] - [id number] Shoulders IMPLANT TACK LOOP [id number] ARTHREX ARTHROSCOPY INSTRUMENT [id number] Left 1 Implanted ANCHOR 4.75 PEEK [id number] - [id number] OTHER - IMPLANTS - ORTHOPAEDIC ANCHOR 4.75 PEEK [id number] ARTHROSCOPY INSTRUMENT [id number] Left 1 Implanted GRAFT TISSUE REGEN MED 4565 - [id number] Grafts GRAFT TISSUE REGEN MED 4565 [employer] [id number] Left 1 Implanted ANCHOR BONE 4403 - [id number] OTHER - IMPLANTS - ORTHOPAEDIC ANCHOR BONE 4403 [employer] [id number] Left 1 Implanted STAPLE TENDON 41337 - [id number] Screws, Bolts and Washers STAPLE TENDON 50068 [employer] ENDOS[employer] [id number] Left 1 Implanted Estimated Blood Loss: Minimal Fluids/Drains: None Donald Josue MD 08/19/23 * Pre-Procedure Instructions - Alyssa Landers RN - 08/18/2023 11:57 AM EST [facility] PRE-OPERATIVE INSTRUCTIONS Notify your doctor of any changes in your health such as fever, cold, flu, etc. Follow Your surgeon's instructions about taking or stopping any medications. Medications to take day of surgery: DULERA, SPIRIVA, GABBIE, FLONASE Your procedure is scheduled at [facility] in [facility] [address]. Yoselin mcfarlane in the [facility] Parking garage. [address] [facility] [address] (closest to the [employer]) [place] [address] [address] Please arrive at the time your doctor has given you. Call the Pre-Operative front desk clerk at if you cannot arrive at the specific time. DAY OF SURGERY, DO NOT EAT OR SMOKE AFTER MIDNIGHT - THIS INCLUDES GUM CANDY AND MINTS. FOLLOW YOURSURONS INSTRUCTIONS ON EATING AND DRINKING. THINGS TO [...] antibacterial soap. (Examples arelike Dial or Safeguard) [place] your teeth and use deodorant unless you [...] OF 18) MUST BE [facility]ABLE [facility] STAY WITH YOU FOR THE FIRST 24 HOURS AFTER SURGERY. documented in this encounter Plan of Treatment Upcoming Encounters Date Type Department Care Team (Late st Contact Info) Description 01/24/2025 1:40 PM EDT Office Visit [facility] - [address] [address] Damien Cárdenas, TANG [address] [place] [address] Scheduled Referrals Name Type Priority Associated Diagnoses [...] - 139 mg/dL 08/19/2023 12:34 PM EST [facility] Serum 08/19/2023 12:2 8 PM EST 08/19/2023 12:34 PM EST us Donald Josue MD LAB BLOOD ORDERABLES Final Result Performing Organization Address [facility]/ZIP Co de Phone Number [address] [address] * Potassium (08/19/2023 12:07 PM EST) Potassium 4.0 3.5 - 5.1 mmol/L 08/19/2023 12:44 PM EST [facility] Comment:Falsely elevated pot assium can occur in patients with high WBC or platelet counts. Plasma BLOOD SPECIMEN FROM PATIENT / Unknown 08/19/2023 12:07 PM EST 08/19/2023 12:22 PM EST us Toyin Cope MD LAB BLOOD ORDERABLES Final Result Performing Organization Address [facility] Co de Phone Number [address] [address] documented in this encounter Visit Diagnoses Diagnosis Left Rotator cuff tear s/p repair 08/19/23- Primary Left Rotator cuff tear s/p repair 08/19/23 documented in this encounter Admitting Diagnoses Diagnosis [...] 30 Minutes, Until Tue08/19/23 at 1408, Pre-op, RoutineIndications:Surgical Prophylaxis New Bag 08/19/2023 1:38 PM EST [...] mL, Until Tue08/19/23 at 1953, PACU, Routine famotidine (PEPCID) injection 20 mg 20 mg, [...] 80 BPM., 0.25 mL, Until Tue08/19/23 at 1953, PACU, Routine, Systolic BP Greater Than (mmHg): 160, Diastolic BP greater than: 90 HYDROmorphone (DILAUDID) injection 0.5 mg 0.5 mg, Intravenous, Every 10 min PRN, Severe pain, Starting on Tue08/19/23 at 1517, Maximum cumulative dose 3 mg. For PACU use ONLY, 0.5 mL, Until Tue08/19/23 at 1953, PACU, Routine labetalol (NORMODYNE,TRANDATE) injection 5 mg 5 mg, Intravenous, Every 5 min PRN, Maximum Cumulative Dose 20 mg, Starting on Tue08/19/23 at 1517, For 4 doses, Give for Heart Rate 81 to 100 BPM., 1 mL, Until Tue08/19/23 at 1953, PACU, Routine, Systolic BP Greater Than (mmHg): [...] mL, Until Tue08/19/23 at 1953, Pre-op, Routine Given 08/19/2023 1:12 PM EST 1 mg Morphine (PF) injection 2 mg 2 mg, Intravenous, Every 10 min PRN, moderate pain, Starting on Tue08/19/23 at 1517, Maximum cumulative dose 20 mg. For PACU use ONLY., 0.5 mL, Until Tue08/19/23 at 195, PACU, Routine ondansetron (ZOFRAN) injection 4 mg [...] 1952, PACU, Routine, With Tx Panel? Yes diphenhydrAMINE (BENADRYL) injection 12.5 mg 12.5 mg, Intravenous, Once as needed, Itching, Starting on Tue08/19/23 at 1517, For 1 dose, 0.25 mL, Until Tue08/19/23 at 1952, PACU, Routine EPINEPHrine PF (ADRENALIN) injection (CANCELED) [...] mL, Until Tue08/19/23 at 1952, Pre-op, Routine 1312 (Given - Provid er: [...] PACU documented in this encounter Care Teams Hardware Supplies Sales Representative Relationship Specialty Start Date End Date Keanu Brooks DO PCP - General Family Medicine 01/14/20 documented as of this encounter
--- OUTSIDE RECORDS SUMMARY | 2024-10-10 22:51 | XMS_ITS | Encounter Summary ---
Author Organization [facility] Address [address] [place] [address] Care Team Providers Care Park Maintenance Technician Name Role Phone Keanu Brooks DO Primary Care Provider + [phone] Reason for Visit * Reason Comments Med Refill Encounter Details Date Type Department Care Team (Late st Contact Info) Description 10/06/2019 Refill [facility] [email or web address] [address] Keanu Brooks DO [email or web address] [address] Social History Tobacco Use Types [...] [facility] [email or web address] [address] Keanu Brooks DO [email or web address] [address] documented as of this encounter Visit Diagnoses Not on filedocumented in this encounter Care Teams Park Maintenance Technician Relationship Specialty Start Date End Date Keanu Brooks DO [address] [place] [address] PCP - General Family Medicine 12/11/18 documented as of this encounter
--- OUTSIDE RECORDS SUMMARY | 2024-10-10 22:51 | XMS_ITS | Encounter Summary ---
Author Organization [facility] Address [address] [place] [address] Care Team Providers Care Street Light Wirer Name Role Phone Keanu Brooks DO Primary Care Provider + [phone] Reason for Visit * Reason Comments Establish Care annual med check Annual Exam Encounter Details Date Type Department Care Team (Late st Contact Info) Description 01/08/2019 9:30 AM EDT Office Visit [facility] [address] [phone] Keanu Brooks DO [address] [id number] Wellness examination (Primary Dx); Essential hypertension; Other insomnia; Moderate persistent asthma, unspecified whether complicated; Drug therapy; Acute idiopathic gout of multiple sites; Hypogonadism in male Social History Tobacco Use Types Packs/Day Years [...] Sign Reading Time Taken Comments Blood Pressure 118/70 01/08/2019 10:03 AM EDT Pulse 112 01/08/2019 10:03 AM EDT Temperature 36.9 ??C (98.5 ??F) 01/08/2019 10:03 AM E DT Respiratory Rate - - Oxygen Saturation 95% 01/08/2019 10:03 AM EDT Inhaled Oxygen Concentration - - Weight 92.5 kg (204 lb) 01/08/2019 10:03 AM EDT Height - - Body Mass Index - - documented in this encounter Progress Notes * Keanu Brooks, - 01/08/2019 9:30 AM EDT Luis Steve is a 58 y.o. male. Presents today for Chief Complaint Patient presents with ??? Establish Care annual med check ??? Annual Exam New patient here to establish care. 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 No cp/soa; Stretches frequently while on road. Reports most recently discovered had gout, seen immediate care for gout flare. Has not had uric acid checked. Exercise regularly; Trying to eat healthy, but hard as on road. Has hypogonadism, reports testosterone through urology. Needs labs per patient. Allergy induced asthma, sees allergy and marine design engineer. Reports seeing Ortho, may have LUCERO at some point in future. Sees Urology for testosterone and prostate. Was adopted, uncertain family hx. Rare use of cigars, not regular smoker. Review of Systems Respiratory: Negative for shortness of breath. Cardiovascular: Negative for chest pain. Gastrointestinal: Negative for abdominal pain, nausea and vomiting. Musculoskeletal: Positive for arthralgias. Patient Active Problem List Diagnosis ??? Asthma ??? ED (erectile dysfunction) ??? Hypertension History reviewed. No pertinent past medical history. Past Surgical History: Procedure Laterality Date ??? CERVICAL DISCECTOMY ANTERIOR C6-C7 ??? COLONOSCOPY ??? KNEE ARTHROSCOPY Left meniscal tear by Dr. Nix ??? SHOULDER ARTHROSCOPY Right Family History Adopted: Yes Problem Relation Age of Onset ??? No Known Problems Mother of pneumonia; adopted ??? Prostate cancer Father adopted Social History Socioeconomic History ??? Marital status: [...] ??? Alcohol use: Yes No Known Allergies No current outpatient medications on file prior to visit. No current facility-administered medications on file prior to visit. Objective Vitals: 01/08/19 1003 BP: 118/70 Pulse: 112 Temp: 98.5 ??F (36.9 ??C) SpO2: 95% Weight: 92.5 kg (204 lb) Physical Exam Constitutional: He appears well-developed [...] reviewed. Assessment/Plan Yovanny was seen today for establish care and annual exam. Diagnoses and all orders for this visit: Wellness examination Essential hypertension - lisinopril-hydrochlorothiazide (PRINZIDE,ZESTORETIC) 20-25 MG per tablet; Take 1 tablet by mouth Daily. - CBC & Differential - Comprehensive Metabolic Panel - Lipid Panel - Uric Acid - PSA DIAGNOSTIC - Testosterone, Free, Total Other insomnia - traZODone (DESYREL) 100 MG tablet; Take 1 tablet by mouth every night at bedtime. - CBC & Differential - Comprehensive Metabolic Panel - Lipid Panel - Uric Acid - PSA DIAGNOSTIC - Testosterone, Free, Total Moderate persistent asthma, unspecified whether complicated Drug therapy - CBC & Differential - Comprehensive Metabolic Panel - Lipid Panel - Uric Acid - PSA DIAGNOSTIC - Testosterone, Free, Total Acute idiopathic gout of multiple sites - CBC & Differential - Comprehensive Metabolic Panel - Lipid Panel - Uric Acid - PSA DIAGNOSTIC - Testosterone, Free, Total Hypogonadism in male - CBC & Differential - Comprehensive Metabolic Panel - Lipid Panel - Uric Acid - PSA DIAGNOSTIC - Testosterone, Free, Total counseled on diet and exercise Check uric acid level, d/w allopurinol Reports hx of kidney failure per patient, added on. BP controlled Fax all labs to urology; They manage testosterone; Sees Dr. Mo, . -Follow up: 6 months and prn, annual if labs stable next time. * Keanu Brooks DO - 01/08/2019 9:30 AM EDT Call and mail copy of results to patient. Fax labs to Dr. Mo, urology. His testosterone is extremely high, did he just take injection prior to labs? He told me urology was managing. Uric acid level is very high, recommend allopurinol 100mg 1 po daily to prevent gout. PSA was normal range. Kidney function decline, avoid nsaids. documented in this encounter Plan of Treatment Upcoming Encounters Date Type Department Care Team (Late st Contact Info) Description 01/17/2025 9:00 AM EDT Office Visit [facility] [address] [phone] Keanu Brooks DO [address] [address] documented as of this encounter Procedures Procedure Name Priority Date/Time Associated Diagnosis Comments CBC AND DIFFERENTIAL Routine 01/08/2019 10:45 AM EDT Essential hypertension Other insomnia Drug therapy Acute idiopathic gout of multiple sites Hypogonadism in male TESTOSTERONE, FREE, TOTAL Routine 01/08/2019 10:45 AM EDT Essential hypertension Other insomnia Drug therapy Acute idiopathic gout of multiple sites Hypogonadism in male URIC ACID Routine 01/08/2019 10:45 AM EDT Essential hypertension Other insomnia Drug therapy Acute idiopathic gout of multiple sites Hypogonadism in male PSA DIAGNOSTIC Routine 01/08/2019 10:45 AM EDT Essential hypertension Other insomnia Drug therapy Acute idiopathic gout of multiple sites Hypogonadism in male LIPID PANEL Routine 01/08/2019 10:45 AM EDT Essential hypertension Other insomnia Drug therapy Acute idiopathic gout of multiple sites Hypogonadism in male COMPREHENSIVE METABOLIC PANEL Routine 01/08/2019 10:45 AM EDT Essential hypertension Other insomnia Drug therapy Acute idiopathic gout of multiple sites Hypogonadism in male documented in this encounter Results * (ABNORMAL) Testosterone, Free, Total (01/08/2019 10:45 AM EDT) Testosterone, Total >1500(H) 264 - 916 ng/dL [facility] Comment: Adult male reference interval is based on a population of healthy nonobese males (BMI <30) between 19 and 39 years old. Mu, et.al. JCEM 2017,102;6718-8847. PMID: [id number]. Testosterone, Free 43.7(H) 6.6 - 18.1 pg/mL [facility] Blood 01/08/2019 10:4 5 AM EDT 01/08/2019 Narrative [facility] (AMBULATORY) - 01/09/2019 8:07 PM EDT Performed at: ??02 - [facility] [address] [place] [address] ??[id number] Filter Bed Placer: Willie Ireland PhD, Phone: ??[phone] Performed at: ??03 - [facility] [address] ??[id number] Filter Bed Placer: Fabrizio Woodson MD, Phone: ??[phone] Patient Fasting: ??Y Keanu Brooks DO LAB BLOOD ORDERABLES Final R esult [facility] (AMBULATORY) [address] [place] [id number], [facility] [address] [place] [address], * PSA DIAGNOSTIC (01/08/2019 10:45 AM EDT) PSA 1.960 0.000 - 4.000 ng/mL [facility] Blood 01/08/2019 10:4 5 AM EDT 01/08/2019 Narrative [facility] ([facility]) - 01/09/2019 8:07 PM EDT Performed at: ??01 - [facility] [address] [place], [place] ??[id number] Filter Bed Placer: Keanu Roy MD, Phone: ??[phone] Patient Fasting: ??Y Keanu Brooks DO LAB BLOOD ORDERABLES Final R esult Performing Organization Address City/[facility] Co de Phone Number [facility] ([facility]BULATORY) [address] [place] [address], [facility] [address] [place] [address], * (ABNORMAL) Uric Acid (01/08/2019 10:45 AM EDT) Uric Acid 9.7(H) 3.4 - 7.0 mg/dL [facility] Blood 01/08/2019 10:4 5 AM EDT 01/08/2019 Narrative [facility] ([facility]ORY) - 01/09/2019 8:07 PM EDT Performed at: ??01 [facility] [address] [place], [place] ??[id number] Filter Bed Placer: Keanu Roy MD, Phone: ??[phone] Patient Fasting: ??Y Keanu Brooks DO LAB BLOOD ORDERABLES Final R esult Performing Organization Address [facility] Co de Phone Number [facility] ([facility]UL[facility]ORY) [address] [place] [address], [facility] [address] [place] [address], * Lipid Panel (01/08/2019 10:45 AM EDT) Total Cholesterol 152 0 - 200 mg/dL [facility] Triglycerides 80 0 - 150 mg/dL [facility] HDL Cholesterol 49 40 - 60 mg/dL [facility] VLDL Cholesterol 16 mg/dL [facility] LDL Cholesterol 87 0 - 100 mg/dL [facility] Blood 01/08/2019 10:4 5 AM EDT 01/08/2019 Narrative [facility] (AMBULATORY) - 01/09/2019 8:07 PM EDT Performed at: ??01 - [place] [address] [address], [place] ??[id number] Filter Bed Placer: Keanu Roy MD, Phone: ??[phone] Patient Fasting: ??Y us Keanu Brooks DO LAB BLOOD ORDERABLES Final R esult [facility] (AMBULATORY) [address] [place] [address], [facility] [address] [place] [address], * (ABNORMAL) Comprehensive Metabolic Panel (01/08/2019 10:45 AM EDT) Glucose 172(H) 65 - 99 mg/dL [facility] BUN 14 8 - 23 mg/dL [facility] Creatinine 1.41(H) 0.76 - 1.27 mg/dL [facility] eGFR Non Am 51(L) >60 mL/min/1.7 3 [facility] eGFR Am 62 >60 mL/min/1.7 3 [facility] BUN/Creatinine Ratio 9.9 7.0 - 25.0 [facility] Sodium 137 136 - 145 mmol/L [facility] Potassium 4.0 3.5 - 5.2 mmol/L [facility] Chloride 99 98 - 107 mmol/L [facility] Total CO2 23.5 22.0 - 29.0 mmol/L [facility] Calcium 10.0 8.6 - 10.5 mg/dL [facility] Total Protein 6.8 6.0 - 8.5 g/dL [facility] Albumin 4.40 3.50 - 5.20 g/dL [facility] Globulin 2.4 gm/dL [facility] A/G Ratio 1.8 g/dL [facility] Total Bilirubin 0.5 0.2 - 1.2 mg/dL [facility] Alkaline Phosphatase 82 39 - 117 U/L [facility] AST (SGOT) 29 1 - 40 U/L [facility] ALT (SGPT) 34 1 - 41 U/L [facility] Blood 01/08/2019 10:4 5 AM EDT 01/08/2019 Narrative [facility] (AMBULATORY) - 01/09/2019 8:07 PM EDT Performed at: ??01 - [address] ??[id number] Filter Bed Placer: Keanu Roy MD, Phone: ??[phone] Patient Fasting: ??Y us Keanu Brooks DO LAB BLOOD ORDERABLES Final R esult [facility] (AMBULATORY) [address] [place] [id number], [facility] [address] [place] [id number], * (ABNORMAL) CBC & Differential (01/08/2019 10:45 AM EDT) WBC 8.23 3.40 - 10.80 10*3/mm3 [facility] RBC 5.22 4.14 - 5.80 10*6/mm3 [facility] Hemoglobin 16.5 13.0 - 17.7 g/dL [facility] Hematocrit 48.9 37.5 - 51.0 % [facility] MCV 93.7 79.0 - 97.0 fL [facility] MCH 31.6 26.6 - 33.0 pg [facility] MCHC 33.7 31.5 - 35.7 g/dL [facility] RDW 17.0(H) 12.3 - 15.4 % [facility] Platelets 206 140 - 450 10*3/mm3 [facility] Neutrophil Rel % 74.4 42.7 - 76.0 % [facility] Lymphocyte Rel % 14.3(L) 19.6 - 45.3 % [facility] Monocyte Rel % 6.8 5.0 - 12.0 % [facility] Eosinophil Rel % 4.1 0.3 - 6.2 % [facility] Basophil Rel % 0.2 0.0 - 1.5 % [facility] Neutrophils Absolute 6.11 1.70 - 7.00 10*3/mm3 [facility] Lymphocytes Absolute 1.18 0.70 - 3.10 10*3/mm3 [facility] Monocytes Absolute 0.56 0.10 - 0.90 10*3/mm3 [facility] Eosinophils Absolute 0.34 0.00 - 0.40 10*3/mm3 [facility] Basophils Absolute 0.02 0.00 - 0.20 10*3/mm3 [facility] Immature Granulocyte Rel % 0.2 0.0 - 0.5 % [facility] Immature Grans Absolute 0.02 0.00 - 0.05 10*3/mm3 [facility] nRBC 0.0 0.0 - 0.2 /100 WBC [facility] Blood 01/08/2019 10:4 5 AM EDT 01/08/2019 Narrative [facility] ([facility]) - 01/09/2019 8:07 PM EDT Performed at: ??01 - [address] ??[id number] Filter Bed Placer: Keanu Roy MD, Phone: ??[phone] Patient Fasting: ??Y Keanu Brooks DO LAB BLOOD ORDERABLES Final R esult [facility] (AMBULATORY) [address] [place] [address], [facility] [address] [place] [address], documented in this encounter Visit Diagnoses Diagnosis Wellness examination- Primary Essential hypertension Unspecified essential hypertension Other insomnia Moderate persistent asthma, unspecified whether complicated Drug therapy Encounter for other specified aftercare Acute idiopathic gout of multiple sites Hypogonadism in male documented in this encounter Care Teams Street Light Wirer Relationship Specialty Start Date End Date Keanu Brooks DO [address] [place] [address] PCP - General Family Medicine 12/11/18 documented as of this encounter
--- OUTSIDE RECORDS SUMMARY | 2024-10-10 22:51 | XMS_ITS | Encounter Summary ---
Author Organization [facility] Address [address] [place] [address] Care Team Providers Care Soil Fertility Extension Specialist Name Role Phone Keanu Brooks DO Primary Care Provider [phone] Reason for Visit * Reason Comments cough and shortness of breath Encounter Details Date Type Department Care Team (Late st Contact Info) Description 09/25/2024 2:30 PM EST Office Visit [address] [place] [address] Robyn Bone, SEISMIC PROSPECTING OBSERVER [address] [facility] [address] [place] [address] Moderate asthma with exacerbation, unspecified whether persistent (Primary Dx); Acute cough; Shortness of breath Social History Tobacco Use Types Packs/Day Years [...] of Assessment Author No 03/30/2022 4:27 PM EDKristy Larsen RN * Do You Have Difficulty Dressing [...] Date Author No 03/30/2022 4:27 PM EDT Kritsy Love RN documented in this encounter Patient Instructions * Patient Instructions* Robyn Bone APRN - 09/25/2024 3:18 PM EST Get plenty of rest Stay well-hydrated. Prescribed medications: Tussionex: cough medication. This medication will likely make you drowsy. DO NOT drink alcohol, useillicit drugs, drive, or operate machinery until you know how this medication will affect you. Prednisone: steroid. Begin this medication tomorrow (09/26/24). Take this medication until it is completely gone. Azithromycin: antibiotic. Take this medication until it is completely gone. Use [id number]-[id number] preparations to help manage symptoms Use Ibuprofen/Tylenol for discomfort, fever, and headache Use Coricidin cough syrup for cough (between Tussionex doses, above) Use guaifenesin (1200mg twice daily) for chest congestion. Drink plenty of water when taking this medication Use nasal saline spray for nasal congestion Drink hot tea with honey to help with cough, congestion and sore throat 1 tsp of honey every 2 hours to help with cough, congestion, and sore throat. Use throat lozenges for sore throat, cough Cool mist humidifier Go to the Emergency Department if symptoms re-occur/worsen. Followup with PCP as needed documented in this encounter Progress Notes * Robyn Bone APRN - 09/25/2024 2:26 PM EST Patient Identification: Name: Margarita Malin Age: 64 yr/o Gender: male : 1960 PCP: Keanu Brooks DO Chief Complaint: Margarita Malin is presenting today for cough and shortness of breath . History of Present Illness: HPI Presents with complaints of cough and SOA. His fiancee is at the bedside, and assists with the HPI. Patient was recently seen in the [facility] for similar symptoms; patient says that he was here last Tuesday , fiancee says that it was 3 Saturdays ago . Treated with antibiotics. Carter says that once he started feeling better, he did not finish the course of the prescribed antibiotics. Approximately one week ago, symptoms returned, and have progressively worsened. 3 days ago, symptoms really intensified. Today his fiancee could hear his struggled breathing from the next room. At one point, he decided to go outside to shovel the driveway so that he could get his truck out of the driveway in order to return to the [facility]. His neighbor saw him struggling, and came to assist him. Cough is non-productive, tight. No fever, N/V/D Non-smoker. 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 History of TERE, uses CPAP with humidification nightly. History of severe asthma. Has a nebulizer at home. Home therapies: Coricidin, nebulizer treatments, inhalers. Patient believes that he has Whopping Cough. Carter lives in the home with him, and has not been ill. Patient does not smoke. Reports UTD on COVID vaccine; last received in early August. -------- Record review: Seen in the [facility] on 09/08 for cough/SOA. COVID/Flu negative. Diagnosed with Asthma exacerbation. Treated with prednisone (20mg x5 days), Augmentin (x10 days), albuterol MDI and tessalon. History, Medications, Allergies, and Review of Symptoms: Past Medical History: Past Medical History: Diagnosis Date Asthma Cervical stenosis of spine Chronic kidney disease 2020 acute failure Degenerative disc disease, cervical ED (erectile dysfunction) Hypertension Left shoulder pain Seasonal allergies Sleep apnea uses cpap Snoring Past Surgical History: Past Surgical History: Procedure Laterality Date ANTERIOR CERVICAL DISCECTOMY W/ FUSION 2012 C6 - C8 welded together COLONOSCOPY JOINT REPLACEMENT Bilateral 2021 Bilat hips KNEE ARTHROSCOPY W/ MENISCAL REPAIR Left 2012 SHOULDER ARTHROSCOPY W/ ROTATOR CUFF REPAIR Right 2011 SPINE SURGERY L5 - S1 laminectomy Current Medications: Outpatient Medications as of 09/25/2024 Medication Sig Dispense Refill albuterol (PROVENTIL HFA;VENTOLIN HFA) 108 (90 BASE) MCG/ACT inhaler Inhale 2 puffs into the lungs every 6 (six) hours as needed for Wheezing . albuterol (PROVENTIL) (2.5 MG/3ML) 0.083% nebulizer solution Inhale 1 ampule by nebulization every 4 (four) hours as needed for Wheezing or Shortness of Air. 30 each 0 albuterol HFA (PROVENTIL HFA) 108 (90 Base) MCG/ACT inhaler Inhale 2 puffs into the lungs every 4 (four) hours as needed for Wheezing or Shortness of Air. 1 each 0 allopurinol (ZYLOPRIM) 300 MG tablet Take 300 mg by mouth daily . benzonatate (TESSALON) 200 MG capsule Take 1 capsule by mouth 3 (three) times daily as needed for Cough. 30 capsule 0 budesonide-formoterol (SYMBICORT) 160-4.5 MCG/ACT inhaler Inhale 2 puffs into the lungs 2 (two) times daily. fexofenadine (GABBIE) 180 MG tablet Take 180 mg by mouth daily . fluticasone (FLONASE) 50 MCG/ACT nasal spray Instill 2 sprays into nose daily. fluticasone (FLONASE) 50 MCG/ACT nasal spray Instill 2 sprays into nose 2 (two) times daily as needed for Allergies. fluticasone-Salmeterol (WIXELA INHUB) 500-50 MCG/ACT AEPB inhaler Inhale 1 puff into the lungs 2 (two) times daily. hydrOXYzine (ATARAX) 10 MG tablet Take 1 tablet by mouth every 4 (four) hours as needed for Itching. 30 tablet 0 lisinopril-hydrochlorothiazide (PRINZIDE,ZESTORETIC) 20-25 MG per tablet Take 1 tablet by mouth daily. mometasone furo-formoterol (DULERA) 200-5 MCG/ACT AERO inhaler Inhale 2 puffs into the lungs 2 (two) times daily . montelukast (SINGULAIR) 10 MG tablet Take 10 mg by mouth daily. Multiple Vitamin (MULTIVITAMIN ADULT PO) Take 1 tablet by mouth daily. testosterone cypionate (DEPOTESTOTERONE CYPIONATE) 200 MG/ML injection Inject 100 mg into the muscle every 7 days. testosterone cypionate (DEPOTESTOTERONE CYPIONATE) 200 MG/ML injection INJECT 0.5 ML INTO THE MUSCLE EVERY WEEK DIRECTED... NEEDS 18 G AND 22 G SYRINGES 5 tiotropium bromide monohydrate (SPIRIVA RESPIMAT) 2.5 MCG/ACT AERS Inhale 2 puffs into the lungs daily . traZODone (DESYREL) 300 MG tablet Take 300 mg by mouth nightly. triamcinolone (KENALOG) 0.1 % cream Apply topically 2 (two) times daily Apply to affected area BID.. 15 g 0 vitamin E 100 UNIT capsule Take 100 Units by mouth daily. Allergies: Allergies as of 09/25/2024 Review status set to Review Complete by Debby Enamorado APRN on 09/08/2024 No Known Allergies Family Medical History: Family History Problem Relation Name Age of Onset Other Mother pneumonia Cancer, Other or Unknown Type Father prostate Social History: Social History Tobacco Use Smoking status: Never Smokeless tobacco: Never Vaping Use Vaping status: Never Used Substance Use Topics Alcohol use: Yes Comment: socially Drug use: No E-cigarette/Vaping Use: Never User Review of Symptoms: Review of Systems Physical Exam: There were no vitals taken for this visit. Physical Exam Vitals reviewed. Constitutional: General: He is in acute distress. Appearance: He is ill-appearing. He is not toxic-appearing or diaphoretic. Comments: afebrile HENT: Head: Normocephalic. Nose: Nose normal. Mouth/Throat: Mouth: Mucous membranes are moist. Eyes: Conjunctiva/sclera: Conjunctivae normal. Cardiovascular: Rate and Rhythm: Regular rhythm. Tachycardia present. Heart sounds: Normal heart sounds. Pulmonary: Breath sounds: Wheezing present. Comments: Patient with increased WOB. Breath sounds diminished throughout. Diffuse, faint expiratory wheezing. SpO2 95-96%. Tachypneic. Appears distressed when talking in long sentences. Patient significantly improved after treatment. Cough and SOA much better controlled. Able to speakin long sentences without getting breathless. RR 16-18 while at rest. No hypoxia. Musculoskeletal: General: Normal range of motion. Cervical back: Normal range of motion. Lymphadenopathy: Cervical: No cervical adenopathy. Skin: General: Skin is warm and dry. Neurological: Mental Status: He is alert and oriented to person, place, and time. Psychiatric: Mood and Affect: Mood normal. Behavior: Behavior normal. Assessment/Plan: Diagnoses and orders/medications from this encounter 1. Moderate asthma with exacerbation, unspecified whether persistent 2. Acute cough XR Chest 2Vw 3. Shortness of breath XR Chest 2Vw IPOC SARS-CoV-2 FLU A/B PCR Reason for Testing: Symptomatic Rapid Test Showing COVID Symptoms IPOC SARS-CoV-2 FLU A/B PCR Reason for Testing: Symptomatic Rapid Test Showing COVID Symptoms Encounter Medications Signed Prescriptions Disp Refills azithromycin (ZITHROMAX) 500 MG tablet 5 tablet 0 Sig: Take 1 tablet by mouth daily for 5 days. Hydrocod Jonny-Chlorphe Jonny ER (TUSSIONEX) 10-8 MG/5ML SUER 120 mL 0 Sig: Take 5 mLs by mouth every 12 (twelve) hours as needed (cough). Max Daily Amount: 10 mLs predniSONE (DELTASONE) 20 MG tablet 10 tablet 0 Sig: Take 2 tablets by mouth daily for 5 days. Results this visit (if any) Results for orders placed or performed in visit on 09/25/24 IPOC SARS-CoV-2 FLU A/B PCR Reason for Testing: Symptomatic Rapid Test Showing COVID Symptoms Specimen: Nasopharyngeal; Tissue Result Value Ref Range COVID Result IPOC PCR Not Detected Not Detected Influenza A PCR - IPOC Not Detected Not Detected Influenza B PCR - IPOC Not Detected Not Detected Follow-up (if any) No follow-ups on file. Medical Decision Making Asthma exacerbation COVID/flu swab: negative CXR: no acute abnormalities, as compared to previous CXR from 02/2022. Duonebs x2 and 80mg Depo-medrol given in the clinic; significantly improved after treatment. Azithromycin, Tussionex, and Prednisone prescribed. Recommend OTC products for symptom management. List provided. Instructions provided. --> the ED if symptoms re-occur/worsen. [place] Bone APRN ANP-BC, AG-ACNP Nurse Practitioner [facility] Patient Instructions Get plenty of rest Stay well-hydrated. Prescribed medications: Tussionex: cough medication. This medication will likely make you drowsy. DO NOT drink alcohol, useillicit drugs, drive, or operate machinery until you know how this medication will affect you. Prednisone: steroid. Begin this medication tomorrow (09/26/24). Take this medication until it is completely gone. Azithromycin: antibiotic. Take this medication until it is completely gone. Use imoa-jhm-ybvdogw preparations to help manage symptoms Use Ibuprofen/Tylenol for discomfort, fever, and headache Use Coricidin cough syrup for cough (between Tussionex doses, above) Use guaifenesin (1200mg twice daily) for chest congestion. Drink plenty of water when taking this medication Use nasal saline spray for nasal congestion Drink hot tea with honey to help with cough, congestion and sore throat 1 tsp of honey every 2 hours to help with cough, congestion, and sore throat. Use throat lozenges for sore throat, cough Cool mist humidifier Go to the Emergency Department if symptoms re-occur/worsen. Followup with PCP as needed documented in this encounter Plan of Treatment Upcoming Encounters Date Type Department Care Team (Late st Contact Info) Description 01/24/2025 1:40 PM EDT Office Visit [facility] - [address] [place] [id number] Damien Cárdenas APRN [address] [place] [address] documented as of this encounter Procedures Procedure Name Priority Date/Time Associated Diagnosis Comments XR CHEST 2VW Routine 09/25/2024 3:05 PM EST Acute cough Shortness of breath IPOC SARS-COV-2 FLU A/B PCR Routine 09/25/2024 2:41 PM EST Shortness of breath documented in this encounter Results * XR Chest 2Vw (09/25/2024 3:05 PM EST) [facility] RAD WORKSTATION ID [id number] FL POWERSCRIBE Anatomical Region Laterality Modality Chest [facility] Radiographic Imaging 09/25/2024 3:54 PM EST Narrative 09/25/2024 3:55 PM EST REVIEWING YOUR TEST RESULTS IN [facility] IS NOT A SUBSTITUTE FOR DISCUSSING THOSE RESULTS WITH YOUR HEALTH CARE PROVIDER. PLEASE CONTACT YOUR PROVIDER [facility]IA [facility] TO DISCUSS ANY QUESTIONS OR CONCERNS YOU MAY HAVE REGARDING THESE TEST RESULTS. RADIOLOGY REPORT FACILITY: ??[facility] UNIT/AGE/GENDER: P.ICCD ??OP ?AGE:64 Y ?SEX:M PATIENT NAME/: ??MARGARITA MALIN D ?1960 UNIT NUMBER: ??[id number] ACCESSION NUMBER: ??[id number] XR CHEST 2VW 09/25/2024 at 1455 hours [...] - 09/25/2024 REVIEWING YOUR TEST RESULTS IN [facility] IS NOT A SUBSTITUTE FORDISCUSSING THOSE RESULTS WITH YOUR HEALTH CARE PROVIDER. PLEASE CONTACT YOUR PROVIDER VIA [employer] TO DISCUSS ANY QUESTIONS ORCONCERNS YOU MAY HAVE REGARDING THESE TEST RESULTS. RADIOLOGY REPORT FACILITY: [facility] UNIT/AGE/GENDER: WILLEMD OP AGE:64 Y SEX:M PATIENT NAME/: MARGARITA MALIN D 1960 UNIT NUMBER: [id number] ACCESSION NUMBER: [id number] XR CHEST 2VW 09/25/2024 at 1455 hours [...] M.D.> 09/25/2024 1554 1554 1554 Robyn Bone SEISMIC PROSPECTING OBSERVER IM DIAGNOSTIC IMAGING ORDER ALEX Final Result * IPOC SARS-CoV-2 FLU A/B PCR Reason for Testing: Symptomatic Rapid Test Showing COVID Symptoms (09/25/2024 2:41 PM EST) COVID Result IPOC PCR Not Detected Not Detected 09/25/2024 3:04 PM EST [facility] Influenza A PCR - IPOC Not Detected Not Detected 09/25/2024 3:04 PM EST [facility] Influenza B PCR - IPOC Not Detected Not Detected 09/25/2024 3:04 PM EST [facility] Tissue NASOPHARYNGEAL SWAB / Unknown Non-blood Collection / Unknown 09/25/2024 2:41 PM EST 09/25/2024 2:42 PM EST Narrative [facility] - 09/25/2024 3:04 PM EST This test [...] - GENERAL ORD ERABLES Final Result LC [facility] [address] [facility], [address] [place] [id number] documented in this encounter Visit Diagnoses Diagnosis Moderate asthma with exacerbation, unspecified whether persistent- Primary Acute cough Shortness of breath documented in this encounter Administered Medications Inactive Administered Medications - up to 3 most recent administrations Medication Order MAR Action Action Date Dose Rate Site albuterol-ipratropium (DUO-NEB) 0.5-2.5 mg/3 mL nebulizer 3 mL 3 mL, Nebulization, Once, On Tue09/25/24 at 1430, For 1 dose, 3 mL, Routine Given 09/25/2024 2:42 PM EST 3 mLs albuterol-ipratropium (DUO-NEB) 0.5-2.5 mg/3 mL nebulizer 3 mL 3 mL, Nebulization, Once, On Tue09/25/24 at 1430, For 1 dose, 3 mL, Routine Given 09/25/2024 3:15 PM EST 3 mLs methylPREDNISolone acetate (DEPO-Medrol) injection 80 mg 80 mg, Intramuscular, Once, On Tue09/25/24 at 1430, For 1 dose, 1 mL, Routine Given 09/25/2024 2:42 PM EST 80 mg Right Ventrogluteal documented in this encounter Care Teams Soil Fertility Extension Specialist Relationship Specialty Start Date End Date Keanu Brooks DO PCP - General Family Medicine 01/14/20 documented as of this encounter
--- OUTSIDE RECORDS SUMMARY | 2024-10-10 22:51 | XMS_ITS | Referral Summary ---
Author Organization [facility] [place] [address] Care Team Providers Care Venue Manager Name Role Phone Keanu Brooks DO Primary Care Provider +1 [phone] Encounters Date Type Department Care Team Description 09/25/2024 3:00 PM EST Imaging[facility]ost [facility] [address] [address] Robyn Bone APRN 09/25/2024 2:30 PM EST [facility] [address] [address] Robyn Bone APRN Moderate asthma with exacerbation, unspecified whether persistent (Primary Dx); Acute cough; Shortness of breath 09/08/2024 3:15 PM EST [facility] [address] [address] Debby Enamorado APRN Exacerbation of asthma, unspecified asthma severity, unspecified whether persistent (Primary Dx); Cough, unspecified type from Last 3 Months Allergies No known active allergies Medications lisinopril-hyd [...] G AND 22 G SYRINGES 5 06/23/20 Active tiotropium bromide monohydrate (SPIRIVA RESPIMAT) 2.5 [...] mouth daily for 5 days. 10 tablet 01/07 025 Hospital, Clinic, or Other Facility Administered [...] apnea 01/14/2020 Asthma Hypertension ED (erectile dysfunction) Immunizations Name Administration Dates Next Due COVID-19 Comirnaty/Pfizer 12 yo and older 2022 COVID-19 Pfizer PURPLE Ages 12 and Older 021,12/26/2020 Influenza Vaccine High-Dose Quadrivalent 65+ Pf 08/17/2023 Influenza Vaccine Quadrivalent Pf 09/22/2020, Influenza Vaccine Tri (IM) 06/28/2017 Influenza, Injectable, MDCK, Preservative Free, Quadrivalent 07/23/2019 Pneumococcal Conjugate 13-Valent 07/23/2019 Pneumococcal Polysaccharide 23 07/03/2018,2016 Social History Tobacco Use Types Packs/Day Years [...] Mass Index 30.14 09/08/2024 3:20 PM EST Functional Status * Are You Deaf or [...] 03/30/2022 4:27 PM EDT Kristy Love RN Mental Status * Because of a Physical, Mental or Emotional Problem, Do You Have Difficulty Doing Errands Alone Suchas Visiting a Doctor's Office or Shopping? Answer Entry Date Author No 03/30/2022 4:27 PM EDT Kristy Love RN Plan of Treatment Upcoming Encounters Date Type Department Care Team (Late st Contact Info) Description 01/24/2025 1:40 PM EDT Office Visit [facility] - [address] [address] Damien Cárdenas, TANG [address] [place] [address] Medical Devices Implanted Type Area Director Of Creative Services Device Identifier Shelf Expiration Date Model / Serial / Lot Loop Vini Vasquez [id number] - [id number] Implanted:Qty : 1 on 03/30/2022 by Cholo Dotson MD at [facility] Cable Left: Hip [employer] TRAUMA [id number] / / Cage Harms 12 [id number] - [id number] Implanted:Qty : 1 on 02/16/2013 by Shady Camargo MD at [facility] Cages Bilateral: Spine Cervical DEPUY,ACROMED [id number] / / Description:C4-7 Graft Tissue Regen Med 4565 - [id number] Implanted:Qty : 1 on 08/19/2023 by Donald Josue MD at [facility] Grafts Left: Shoulder [employer]ALES [employer] NEPHEW ORTHO 11/13/2025 4565 / / [id number] Hip Shell Acetab 52 [id number] - [id number] Implanted:Qty : 1 on 03/30/2022 by Cholo Dotson MD at [facility] Hips Left: Hip ROSALES [employer] NEPHEW ORTHO 08/21/2031 [id number] / / [id number] Hip Liner Chino Sz 32 [id number] - [id number] Implanted:Qty : 1 on 03/30/2022 by Cholo Dotson MD at [facility] Hips Left: Hip [employer]AL[employer]PHEW ORTHO 08/20/2027 [id number] / / [id number] Hip Fem Head Taper 32 [id number] - [id number] Implanted:Qty : 1 on 03/30/2022 by Cholo Dotson MD at [facility] Hips Left: Hip [employer]AL[employer]PHEW ORTHO 09/23/2031 [id number] / / [id number] Hip Shell Acetab 52 [id number] - [id number] Implanted:Qty : 1 on 03/30/2022 by Cholo Dotson MD at [facility] Hips Right: Hip [employer]AL[employer] NEPHEW ORTHO 10/20/2031 [id number] / / [id number] Hip Liner Acetab 52 [id number] - [id number] Implanted:Qty : 1 on 03/30/2022 by Cholo Dotson MD at [facility] Hips Right: Hip [employer]AL[employer] NEPHEW ORTHO 02/02/2031 [id number] / / [id number] Hip Fem Head Taper 32 [id number] - [id number] Implanted:Qty : 1 on 03/30/2022 by Cholo Dotson MD at [facility] Hips Right: Hip [employer]AL[employer] NEPHEW ORTHO 11/28/2031 [id number] / / [id number] Hip Stem Sz2 Lat [id number] - [id number] Implanted:Qty : 1 on 03/30/2022 by Cholo Dotson MD at [facility] OTHER - IMPLANTS - ORTHOPAEDIC Left: Hip ROSALES [employer] NEPHEW ORTHO 10/02/2024 [id number] / / [id number] Hip Stem Sz2 Lat 56731626 - [id number] Implanted:Qty : 1 on 03/30/2022 by Cholo Dotson MD at [facility] OTHER - IMPLANTS - ORTHOPAEDIC Right: Hip [employer]AL[employer] NEPHEW ORTHO 01/12/2028 [id number] / / [id number] Grapevine 4.75 Peek [id number] - [id number] Implanted:Qty : 1 on 08/19/2023 by Donald Josue MD at [facility] OTHER - IMPLANTS - ORTHOPAEDIC Left: Shoulder ARTHREX ARTHROSCOPY INSTRUMENT 03/18/2028 [id number] / / [id number] Grapevine Bone 4403 - [id number] Implanted:Qty : 1 on 08/19/2023 by Donald Josue MD at [facility] OTHER - IMPLANTS - ORTHOPAEDIC Left: Shoulder ROSALES [employer] NEPHEW ORTHO 03/14/2026 / / [id number] Plate Raymond 3l 48 [id number] - [id number] Implanted:Qty : 1 on 02/16/2013 by Shady Camargo MD at [facility] Plates Bilateral: Spine Cervical DEPUY,ACROMED [id number] / / Description:C4-7 Staple Tendon 92802 - [id number] Implanted:Qty : 1 on 08/19/2023 by Donald Josue MD at [facility] Screws, Bolts and Washers Left: Shoulder [employer]ALES [employer] NEPHEW ENDOSCOPY 01/27/2026 [id number] / / [id number] Screw 16 [id number] - [id number] Implanted:Qty : 4 on 02/16/2013 by Shady Camargo MD at [facility] Screws Bilateral: Spine Cervical DEPUY,ACROMED [id number] / / Description:C4-7 Implant Tack Loop [id number] - [id number] Implanted:Qty : 1 on 08/19/2023 by Donald Josue MD at [facility] Shoulders Left: Shoulder ARTHREX ARTHROSCOPY INSTRUMENT 12/17/2026 [id number] / / [id number] Procedures Procedure Name Priority Date/Time Associated Diagnosis Comments XR CHEST 2VW Routine 09/25/2024 3:05 PM EST Acute cough Shortness of breath IPOC SARS-COV-2 FLU A/B PCR Routine 09/25/2024 2:41 PM EST Shortness of breath IPOC SARS-COV-2 FLU A/B PCR Routine 09/08/2024 3:25 PM EST Cough, unspecified type from Last 3 Months Results * XR Chest 2Vw (09/25/2024 3:05 PM EST) [facility] RAD WORKSTATION ID [id number] [facility] Anatomical Region Laterality Modality Chest [facility] Radiographic Imaging 09/25/2024 3:54 PM EST Narrative 09/25/2024 3:55 PM EST REVIEWING YOUR TEST RESULTS [facility] A SUB[facility] FOR DISCUSSING THOSE RESULTS WITH YOUR HEALTH CARE PROVIDER. PLEASE CONTACT YOUR PROVIDER VIA [facility] TO DISCUSS ANY QUESTIONS OR CONCERNS YOU MAY HAVE REGARDING THESE TEST RESULTS. RADIOLOGY REPORT FACILITY: ??[facility] UNIT/AGE/GENDER: P.ICCD ??OP ?AGE:64 Y ?SEX:M PATIENT NAME/: ??MARGARITA MALIN D ?1960 UNIT NUMBER: ??[id number] ACCESSION NUMBER: ??[id number] XR CHEST 2VW 09/25/2024 at 1455 hours [...] M.D.> 09/25/2024 1554 1554 1554 Procedure Note Aleuxs Nicole MD - 09/25/2024 REVIEWING YOUR TEST RESULTS IN [facility] IS NOT A SUBSTITUTE FORDISCUSSING THOSE RESULTS WITH YOUR HEALTH CARE PROVIDER. PLEASE CONTACT YOUR PROVIDER VIA [facility] TO DISCUSS ANY QUESTIONS ORCONCERNS YOU MAY HAVE REGARDING THESE TEST RESULTS. RADIOLOGY REPORT FACILITY: [facility] UNIT/AGE/GENDER: P.ICCD OP AGE:64 Y SEX:M PATIENT NAME/: MARGARITA MALIN D 1960 UNIT NUMBER: [id number] ACCESSION NUMBER: [id number] XR CHEST 2VW 09/25/2024 at 1455 hours [...] 09/25/2024 1554 1554 1554 Robyn Bone APRN IMG DIAGNOSTIC IMAGING ORDER ALEX Final Result * IPOC SARS-CoV-2 FLU A/B PCR Reason for Testing: Symptomatic Rapid Test Showing COVID Symptoms (09/25/2024 2:41 PM EST) Only the most recent of2 resultswithin the time period is included. COVID Result IPOC PCR Not Detected Not Detected 09/25/2024 3:04 PM EST LC MORENO/ICC Influenza A PCR - IPOC Not Detected Not Detected 09/25/2024 3:04 PM EST LC MA/ICC Influenza B PCR - IPOC Not Detected Not Detected 09/25/2024 3:04 PM EST LC JOSH/ICC Tissue NASOPHARYNGEAL SWAB / Unknown Non-blood Collection / Unknown 09/25/2024 2:41 PM EST 09/25/2024 2:42 PM EST Narrative LC JOSH/ICC - 09/25/2024 3:04 PM EST This test [...] - GENERAL ORD ERABLES Final Result LC MORENO/TED [address] [email or web address], [address] [place], [place] [address] from Last 3 Months Insurance MEDICARE Advance Directives * Full Code (Latest Code Status on File) Date Activated Date Inactivated Comments 03/30/2022 4:24 PM 04/01/2022 4:16 PM * Full Code Date Activated Date Inactivated Comments 02/16/2013 11:49 AM 02/18/2013 1:34 PM Care Teams Venue Manager Relationship Specialty Start Date End Date Keanu Brooks DO PCP - General Family Medicine 01/14/20
--- OUTSIDE RECORDS SUMMARY | 2024-10-10 22:51 | XMS_ITS | Encounter Summary ---
[facility] Address [address] [place] [address] Care Team Providers Care Rn Clinician Name Role Phone Kenau Brooks DO Primary Care Provider + [phone] Reason for Visit * Reason Comments Med Refill Encounter Details Date Type Department Care Team (Late st Contact Info) Description 07/08/2019 Refill [facility] [address] [employer] [address] [address] Keanu Brooks DO [address] [employer] [address] [address] Social History Tobacco Use Types [...] Description 01/17/2025 9:00 AM EDT Office Visit [facility] [address] [employer] [employer] [address] [address] Keanu Brooks DO [address] [employer] [address] [address] documented as of this encounter Visit Diagnoses Not on filedocumented in this encounter Care Teams Rn Clinician Relationship Specialty Start Date End Date Keanu Brooks DO [address] [place] [address] PCP - General Family Medicine 12/11/18 documented as of this encounter
--- OUTSIDE RECORDS SUMMARY | 2024-10-10 22:51 | XMS_ITS | Encounter Summary ---
Author Organization [facility] Address [address] [place] [address] Care Team Providers Care Change Person Name Role Phone Keanu Brooks DO Primary Care Provider + [phone] Encounter Details Date Type Department Care Team (Late st Contact Info) Description 10/05/2019 Telephone [facility] [address] [address] Keanu Brooks DO [address] [address] Social History Tobacco Use Types [...] Telephone Encounter - Maday Ferguson MA - 10/05/2019 11:00 AM EST Med sent to pharmacy. documented in this encounter Plan of Treatment Upcoming Encounters Date Type Department Care Team (Late st Contact Info) Description 01/17/2025 9:00 AM EDT Office Visit [facility] [address] [address] Keanu Brooks DO [address] [place] [address] documented as of this encounter Visit Diagnoses Diagnosis Essential hypertension Unspecified essential hypertension documented in this encounter Care Teams Change Person Relationship Specialty Start Date End Date Keanu Brooks DO [address] [place] [address] PCP - General Family Medicine 12/11/18 documented as of this encounter
--- OUTSIDE RECORDS SUMMARY | 2024-10-10 22:51 | XMS_ITS | Encounter Summary ---
Author Organization [facility] Address [address] [place] [address] Care Team Providers Care General Merchandise Manager Name Role Phone Keanu Brooks DO Primary Care Provider + [phone] Encounter Details Date Type Department Care Team (Late st Contact Info) Description 01/11/2019 Telephone [facility] [address] [phone] Keanu Brooks DO [address] [email or web address] [address] [id number] Social History Tobacco Use Types Packs/Day Years [...] Telephone Encounter - Yesenia Yanez MA - 01/11/2019 12:33 PM EDT Labs faxed as requested * Telephone Encounter - Yesenia Yanez MA - 01/11/2019 12:33 PM EDT ----- Message from Keanu Brooks DO sent at 01/08/2019 10:35 AM EDT ----- Regarding: fax labs Fax all labs to Urology Dr. Mo [phone]. documented in this encounter Plan of Treatment Upcoming Encounters Date Type Department Care Team (Late st Contact Info) Description 01/17/2025 9:00 AM EDT Office Visit [facility] [address] [phone] Keanu Brooks DO [address] [address] documented as of this encounter Visit Diagnoses Not on filedocumented in this encounter Care Teams General Merchandise Manager Relationship Specialty Start Date End Date Keanu Brooks DO [address] [address] PCP - General Family Medicine 12/11/18 documented as of this encounter
--- OUTSIDE RECORDS SUMMARY | 2024-10-10 22:51 | XMS_ITS | Encounter Summary ---
Author Organization [facility] [place] [address] Care Team Providers Care Blast Furnace Operator Name Role Phone Keanu Brooks DO Primary Care Provider +1 [phone] Reason for Visit * Reason Comments Immunizations Flu and Covid vaccin e Encounter Details Date Type Department Care Team (Latest Contact Info) Description 08/17/2023 10:45 AM EST Injection Visit [facility] [address] [place] [address] Maribeth Saunders, TANG [address] [place], [place] [id number] Immunization due (Primary Dx) Social History Tobacco Use Types [...] of Assessment Author Yes 03/30/2022 4:27 PM EDKristy Larsen RN * Do You Have Serious Difficulty [...] Kristy Love RN documented in this encounter Plan of Treatment Upcoming Encounters Date Type Department Care Team (Late st Contact Info) Description 01/24/2025 1:40 PM EDT Office Visit [facility] - [address] [address] Damien Cárdenas, CARD FOLDER [address] [place] [address] documented as of this encounter Visit Diagnoses Diagnosis Immunization due- Primary documented in this encounter Care Teams Blast Furnace Operator Relationship Specialty Start Date End Date Keanu Brooks DO PCP - General Family Medicine 01/14/20 documented as of this encounter
--- OUTSIDE RECORDS SUMMARY | 2024-10-10 22:51 | XMS_ITS | Encounter Summary ---
Author Organization [facility] Address [address] [place] [address] Care Team Providers Care Kit Planner Name Role Phone Keanu Brooks DO Primary Care Provider +1 [phone] Encounter Details Date Type Department Care Team (Late st Contact Info) Description 09/25/2024 3:00 PM EST Imaging/Diagnost ic [address] [place] [address] Robyn Bone, AUTOMOTIVE SERVICE ASSISTANT [address] [facility] [address] [place] [address] Social History Tobacco Use Types Packs/Day Years [...] of Assessment Author No 03/30/2022 4:27 PM WANDERT Kristy Love RN * Patient's Vision Adequate [...] 01/24/2025 1:40 PM EDT Office Visit [facility] - [address] [address] Damien Cárdenas, AUTOMOTIVE SERVICE ASSISTANT [address] [place] [address] documented as of this encounter Procedures Procedure Name Priority Date/Time Associated Diagnosis Comments XR CHEST 2VW Routine 09/25/2024 3:05 PM EST Acute cough Shortness of breath documented in this encounter Results * XR Chest 2Vw (09/25/2024 3:05 PM EST) [facility] RAD WORKSTATION ID [id number] [facility]01 [facility] An[facility] Region Laterality Modality Chest [facility] Radiographic Imaging 09/25/2024 3:54 PM EST Narrative 09/25/2024 3:55 PM EST REVIEWING YOUR TEST RESULTS IN [facility] IS NOT A SUBSTITUTE FOR DISCUSSING THOSE RESULTS WITH YOUR HEALTH CARE PROVIDER. PLEASE CONTACT YOUR PROVIDER VIA [facility] TO DISCUSS ANY QUESTIONS OR CONCERNS YOU MAY HAVE REGARDING THESE TEST RESULTS. RADIOLOGY REPORT FACILITY: ??[facility] UNIT/AGE/GENDER: P.ICCD ??OP ?AGE:64 Y ?SEX:M PATIENT NAME/: ??YOVANNY MALIN D ?1960 UNIT NUMBER: ??[id number] ACCESSION NUMBER: ??[id number] XR CHEST 2VW 09/25/2024 at 1455 hours [...] - 09/25/2024 REVIEWING YOUR TEST RESULTS IN [facility] IS NOT A SUBSTITUTE FORDISCUSSING THOSE RESULTS WITH YOUR HEALTH CARE PROVIDER. PLEASE CONTACT YOUR PROVIDER [facility]IA [facility] TO DISCUSS ANY QUESTIONS ORCONCERNS YOU MAY HAVE REGARDING THESE TEST RESULTS. RADIOLOGY REPORT FACILITY: [facility] UNIT/AGE/GENDER: [facility]GE:64 Y SEX:M PATIENT NAME/: YOVANNY MALIN D 1960 UNIT NUMBER: [id number] ACCESSION NUMBER: [id number] XR CHEST 2VW 09/25/2024 at 1455 hours [...] Alexus Nicole M.D.> 09/25/2024 1554 1554 1554 us Robyn Bone APRN IMG DIAGNOSTIC IMAGING ORDER ALEX Final Result documented in this encounter Visit Diagnoses Not on filedocumented in this encounter Care Teams Kit Planner Relationship Specialty Start Date End Date Keanu Brooks DO PCP - General Family Medicine 01/14/20 documented as of this encounter
--- OUTSIDE RECORDS SUMMARY | 2024-10-10 22:52 | XMS_ITS | Encounter Summary ---
Author Organization [facility] Address [address] [place] [address] Care Team Providers Care Glassware Selector Name Role Phone Keanu Brooks DO Primary Care Provider [phone] Reason for Referral * Consultation (Routine) - Closed Specialty Diagnoses / Procedures Referred By Contac t Referred To Contact Orthopedic Surgery Diagnoses Status post total replacement of both hips Mary Ann Cristina APRN [address] [address] Phone: tel: [place] [id number] [place] [address] Phone: tel: fax: Referral ID Status Reason Start Date Expiration Date Visits Re quested Visits Authorized [id number] Closed 04/01/2022 05/02/2023 1 1 * Fluoroscopy (Routine) - Closed Specialty Diagnoses / Procedures Referred By Contac t Referred To Contact Radiology Procedures [place] C-Arm Greater than [place] [id number] [address] [place] [address] Phone: tel: fax: Referral ID Status Reason Start Date Expiration Date Visits Re quested Visits Authorized [id number] Closed 03/30/2022 04/30/2023 1 1 Reason for Visit * Auth/Cert Specialty Diagnoses / Procedures Referred By Moshe denis Referred To Contact Diagnoses Arthritis of both hips [M16.0] Procedures TOTAL HIP ARTHROPLASTY ANTERIOR APPROACH (PLANNED OBSERVATION) Referral ID Status Reason Start Date Expiration Date Visits Re quested Visits Authorized [id number] 1 1 Encounter Details Date Type Department Care Team (Late st Contact Info) Description 03/30/2022 6:49 AM EDT - 04/01/2022 2:06 PM EDT Hospital Encounter [address] Ortho Med/Surg [address] [place] [address] [place] [id number] [address] [place] [address] Status post total replacement of both hips 03/30/22 (Primary Dx) Discharge Disposition: Home or Self [...] on file Sexual Orientation Not on file COVID-19 Exposure Response Date Recorded In the last 10 days, have yo u been in contact with someone who was confirmed or suspected to have Coronavirus/COVID-19? No / Unsure 03/30/2022 6:48 AM EDT documented as of this encounter Last Filed Vital Signs Vital Sign Reading Time Taken Comments Blood Pressure 92/55 04/01/2022 11:00 AM EDT Pulse 98 04/01/2022 11:00 AM EDT Temperature 36.7 ??C (98 ??F) 04/01/2022 11:00 AM EDT Respiratory Rate 17 04/01/2022 11:00 AM EDT Oxygen Saturation 93% 04/01/2022 11:00 AM EDT Inhaled Oxygen Concentration - - Weight 87.5 kg (193 lb) 03/30/2022 4:27 PM EDT Height 172.7 cm (5' 8 ) 03/30/2022 4:27 PM EDT Body Mass Index 29.35 03/30/2022 4:27 PM EDT documented in this encounter Functional Status * Are You Deaf or do You Have Serious Difficulty Hearing? Answer Date of Assessment Author No 03/30/2022 4:27 PM EDT Kristy Watt RN * Patient's Vision Adequate to Safely Complete Daily Activities Answer Date of Assessment Author Yes 03/30/2022 4:27 PM EDT Kristy Watt RN * Do You Have Serious Difficulty Walking or Climbing Stairs? Answer Date of Assessment Author No 03/30/2022 4:27 PM EDT Kristy Watt RN * Do You Have Difficulty Dressing or Bathing? Answer Date of Assessment Author No 03/30/2022 4:27 PM EDT Kristy Watt RN * Because of a Physical, Mental, or Emotional Condition, Do You Have Serious Difficulty Concentrating, Remembering or Making a Decision? Answer Date of Assessment Author No 03/30/2022 4:27 PM EDT Kristy Watt RN documented as of this encounter Mental Status * Because of a Physical, Mental or Emotional Problem, Do You Have Difficulty Doing Errands Alone Suchas Visiting a Doctor's Office or Shopping? Answer Entry Date Author No 03/30/2022 4:27 PM EDT Kristy Watt RN documented in this encounter Discharge Summaries * Mary Ann Cristina, LANDSCAPE SUPERVISOR - 04/01/2022 10:17 AM EDT Physician Discharge Summary Patient Identification: Name: Margarita Steve Age: 61 yr/o Sex: male : 1960 Admit date: 03/30/2022 Discharge date and time: 04/01/2022 Admitting Physician: Cholo Dotson MD Discharge Physician: Cholo Dotson MD Admission Diagnoses: Primary osteoarthritis of hips, bilateral [M16.0] Discharge Diagnoses: Primary osteoarthritis of hips, bilateral [M16.0] Discharged Condition: stable Followed by [facility] for medical conditions to include Principal Problem: Primary osteoarthritis of hips, bilateral (03/30/2022) POA: Yes Active Problems: Asthma () POA: Yes Hypertension () POA: Yes Sleep apnea (01/14/2020) POA: Yes Status post total replacement of both hips 03/30/22 (03/30/2022) POA: Not Applicable Stage 3a chronic kidney disease (CMS/HCC) (03/31/2022) POA: Yes Hospital Course: Brief HPI: 61 yr/o male with Primary osteoarthritis of hips, bilateral [M16.0] who had failed conservative measures. Patient was requesting a total hip replacement. Cholo Dotson MD discussed treatment options at length with patient as well as all risks and benefits. Patient verbalized understanding of all risks and benefits and consented for the bilateral total hip arthroplasty. Hospital Course: Patient was taken to operating room on 03/30/2022 for the above mentioned procedure. Patient tolerated the procedure well and without complications. Please see operative note for fulldetails of the operation. Patient received their pre and post operative antibiotics. Patient received DVT prophylaxis in the form of early ambulation, bilateral SCDs and with the use of eliquis. Patient continued to progress through their hospital course with pain management and with physical therapy and on post operative day number one, patient was deemed stable to be discharge to home. Consults: Hospitalist Significant Diagnostic Studies: Recent Results (from the past 36 hour(s)) CBC w/Diff Collection Time: 03/31/22 3:22 AM Result Value Ref Range White Blood Count 12.75 (H) 4.5 - 11.0 10*3/uL Red Blood Count 3.58 (L) 4.5 - 5.9 10*6/uL Hemoglobin 12.1 (L) 13.5 - 17.5 g/dL Hematocrit 35.9 (L) 41.0 - 53.0 % Mean Corpuscular Volume 100.3 (H) 80.0 - 100.0 fL Mean Corpuscular Hemoglobin 33.8 26.0 - 34.0 pg Mean Corpuscular HGB Conc 33.7 31.0 - 37.0 g/dL Red Cell Distribution Width-CV 13.3 12.0 - 16.8 % Platelet Count 149 140 - 440 10*3/uL Mean Platelet Volume 10.1 8.4 - 12.4 fL Diff Type Hospital CBC w/AutoDiff (arb'U) Neutrophils % 82.9 (H) 45 - 80 % Lymphocyte % 8.2 (L) 15 - 50 % Monocyte % 8.2 0 - 15 % Eosinophil% 0.2 0 - 7 % BASO% 0.1 0 - 2 % Immature Granulocyte% 0.4 0.0 - 1.0 % Nucleated RBC % 0 0 /100(WBC) Neutrophil Abs 10.58 (H) 2.0 - 8.8 10*3/uL Lymphocyte-Absolute 1.05 0.7 - 5.5 10*3/uL Monocyte Absolute 1.04 0.0 - 1.7 10*3/uL EOS-Absolute 0.02 0.0 - 0.8 10*3/uL Basophil Abs 0.01 0.0 - 0.2 10*3/uL Immature Granulocyte Abs 0.05 0.00 - 0.10 10*3/uL Basic Metabolic Panel (BMP) Collection Time: 03/31/22 3:22 AM Result Value Ref Range Sodium 136 136 - 145 mmol/L Potassium 4.1 3.5 - 5.1 mmol/L Chloride 103 98 - 107 mmol/L Carbon Dioxide 24 22 - 29 mmol/L Anion Gap 9 5 - 13 (arb'U) Glucose 175 (H) 71 - 139 mg/dL Blood Urea Nitrogen (BUN) 21 8 - 26 mg/dL Creatinine-Blood 1.24 (H) 0.73 - 1.18 mg/dL BUN/Creatinine Ratio 16.9 RATIO Estimated GFR 59 (L) >60 /1.73 m2 Estimated GFR if -Ethiopian >60 >60 /1.73 m2 Calcium 8.7 8.4 - 10.2 mg/dL CBC w/Diff Collection Time: 04/01/22 5:56 AM Result Value Ref Range White Blood Count 10.33 4.5 - 11.0 10*3/uL Red Blood Count 3.60 (L) 4.5 - 5.9 10*6/uL Hemoglobin 12.1 (L) 13.5 - 17.5 g/dL Hematocrit 35.8 (L) 41.0 - 53.0 % Mean Corpuscular Volume 99.4 80.0 - 100.0 fL Mean Corpuscular Hemoglobin 33.6 26.0 - 34.0 pg Mean Corpuscular HGB Conc 33.8 31.0 - 37.0 g/dL Red Cell Distribution Width-CV 13.5 12.0 - 16.8 % Platelet Count 136 (L) 140 - 440 10*3/uL Mean Platelet Volume 10.3 8.4 - 12.4 fL Diff Type CBC w/Manual Differential (arb'U) Neutrophils % 82.0 (H) 45 - 80 % Band Neutrophil% 1.0 0 - 5 % Lymphocyte % 11.0 (L) 15 - 50 % Eosinophil% 1.0 0 - 7 % Myeloctye % 5.0 (H) 0 % Nucleated RBC % 0 0 /100(WBC) Absolute Neutrophil Count 8.57 2.0 - 8.8 /uL Neutrophil Abs 8.47 2.0 - 8.8 10*3/uL Bands-Absolute 0.10 0 - 0.6 10*3/uL Lymphocyte-Absolute 1.14 0.7 - 5.5 10*3/uL EOS-Absolute 0.10 0.0 - 0.8 10*3/uL Myelo-Absolute 0.52 (H) 0 10*3/uL RBC Morphology Comment Normal Normal Platelet Estimate DECREASED (A) Adequate (arb'U) Discharge Exam: 61 yr/oyo male AAOX3. NAD VS;BP 102/61 (BP Location: Left arm, Orthostatic Position: Lying) Pulse (!) 118 Temp 98.3 ??F (36.8 ??C) (Oral) Resp 18 Ht 5' 8 (172.7 cm) Wt 87.5 kg (193 lb) SpO2 94% BMI 29.35 kg/m?? MS: Surgical incision covered with intact dry Aquacel AG dressing. Operative site with minimal swelling. minimal ecchymosis. Drainage - no active drainage. Sensation intact. Met goals with PT for DC to home Disposition: Home Patient Instructions: Current Discharge Medication List START taking these medications Details apixaban (ELIQUIS) 2.5 MG tablet Take 1 tablet by mouth 2 (two) times daily. Qty: 60 tablet, Refills: 0 oxyCODONE-acetaminophen (PERCOCET) 7.5-325 MG Take 1 tablet by mouth every 4 (four) hours as neededfor Pain. Max Daily Amount: 6 tablets Qty: 42 tablet, Refills: 0 CONTINUE these medications which have NOT CHANGED Details albuterol (PROVENTIL HFA;VENTOLIN HFA) 108 (90 BASE) MCG/ACT inhaler Inhale 2 puffs into the lungs every 6 (six) hours as needed for Wheezing . allopurinol (ZYLOPRIM) 300 MG tablet Take 300 mg by mouth daily . fexofenadine (GABBIE) 180 MG tablet Take 180 mg by mouth daily . fluticasone (FLONASE) 50 MCG/ACT nasal spray Instill 2 sprays into nose 2 (two) times daily. lisinopril-hydrochlorothiazide (PRINZIDE,ZESTORETIC) 20-25 MG per tablet Take 1 tablet by mouth daily. mometasone furo-formoterol (DULERA) 200-5 MCG/ACT AERO inhaler Inhale 2 puffs into the lungs 2 (two) times daily . Multiple Vitamin (MULTIVITAMIN ADULT PO) Take 1 tablet by mouth daily. sertraline (ZOLOFT) 25 MG tablet Take 25 mg by mouth daily. testosterone cypionate (DEPOTESTOTERONE CYPIONATE) 200 MG/ML injection INJECT 0.5 ML INTO THE MUSCLE EVERY WEEK DIRECTED... NEEDS 18 G AND 22 G SYRINGES Refills: 5 tiotropium bromide monohydrate (SPIRIVA RESPIMAT) AERS Inhale 2 puffs into the lungs daily . traZODone (DESYREL) 100 MG tablet Take 1 tablet by mouth nightly Qty: 30 tablet, Refills: 3 vitamin E 100 UNIT capsule Take 100 Units by mouth daily. STOP taking these medications Cholecalciferol (VITAMIN D) 25 MCG (1000 UNIT) tablet montelukast (SINGULAIR) 10 MG tablet mupirocin (BACTROBAN) 2 % ointment tadalafil (CIALIS) 20 MG tablet tadalafil (CIALIS) 20 MG tablet Contact information for other follow-up providers Cholo Dotson MD . Specialties: Orthopedic Surgery, Pediatric Orthopedic Surgery Contact information [id number] [address] [facility] [phone] Keanu Brooks DO . Specialty: Family Medicine Contact information [address] [facility] [address] [facility] [address] Contact information for after-discharge jail Medical Care [facility] . Service: Home Health Services Contact information [address] [facility] [id number] To-Do List To-Do List Future Appointments Provider Department Dept Phone 04/22/2022 1:00 PM Marii Cuellar APRN [facility] [phone] 1.?? If you will be using a mobile device, download the Movaris and CyberX apps before your appointment. 2.?? To begin your visit on a mobile device, open the [employer]aris logan and select your appointment underthe Visits icon. To begin your visit from a computer, select your appointment under the Visits tab. 3.?? Complete eCheckin prior to your visit. 4.?? For technical support prior to your visit, please call [phone], option 2 or visit [email or web address] to learn more about your telehealth visit. 5.?? If your symptoms become severe, please call 911 or go to the nearest emergency department. Future Orders Activity as tolerated - no restrictions Activity order (specify) Advance to home diet as tolerated Apply Polar Connor cooling unit to operative extremity Call doctor for: elevated temperature Call doctor for: Leg becomes numb, tingles, cold to touch or changes color Call doctor for: Potential signs of infection Discharge equipment: Standard Walker (NURSING DO NOT ROLA COMPLETE OR DONE) Discharge instructions (specify) Do not soak in water Do not take a tub bath Follow up appointment to see me Incision / Wound care (specify) Keep dressing clean and dry May shower Remove dressing May shower as instructed Aquacel dressing to be removed on POD #7 and apply light dressing as needed. No ointments, lotions,etc over incision. No soaking in water until cleared by surgeon. No driving until cleared by surgeon. Physical therapy- status post total hip arthroplasty. Weight bearing as tolerated. Strengthening exercises, and progressive ambulation. Use walker/ crutches and progress to cane. Diet: Resume home diet Electronically Signed By : Mary Ann Cristina APRN 04/01/2022 10:17 AM Cosigned by Cholo Dotson MD at 04/02/2022 8:11 AM EDT documented in this encounter Discharge Instructions * Discharge Instructions* Renata Lima [facility] - 03/31/2022 9:22 AM EDT Apixaban (Eliquis??) is the anticoagulant (blood thinner) you are prescribed to prevent blood clotsin legs [deep vein thrombosis] after surgery. -Dose: Take exactly as prescribed. -It is very important to take every dose to reduce risk of blood clots and stroke. -Missed dose instructions: Take as soon as you remember if within 8 hours of scheduled dose time. After 8 hours, take the next dose only (do not take 2 doses at the same time). -Safety Monitoring: Bleeding is a potential adverse effect of the anticoagulant. If you experience any of the following, go to the emergency room: rectal bleeding unrelated to hemorrhoids, dark/tarrystools, coughing or vomiting blood, bruises larger than 3 inches, or other uncontrolled bleeding. -Laboratory Monitoring: Apixaban does not require regular clotting tests for dosing/monitoring. Your doctor may monitor your blood counts for safety. -Drug Interactions: Some medications such as ibuprofen (Motrin??), naproxen (Aleve??), meloxicam (Mobic??), and diclofenac (Voltaren??) may increase risk of bleeding. Speak to your healthcare provider prior to starting new medications or stopping apixaban. documented in this encounter Medications at Time [...] lungs 2 (two) times daily . 11/27/2018 Multiple Vitamin (MULTIVITAMIN ADULT PO) Take 1 [...] capsule Take 100 Units by mouth daily. apixaban (ELIQUIS) 2.5 MG tabletIndications :PostOp DVT Proph (2.5mg BID) Take 1 tablet by mouth 2 (two) times daily. 60 tablet 03/31/2022 3 oxyCODONE-acetami nophen (PERCOCET) 7.5-325 MG Take 1 tablet by mouth every 4 (four) hours as needed for Pain. Max Daily Amount: 6 tablets 42 tablet 03/31/2022 10:44 AM EDT 03/31/2022 2 sertraline (ZOLOFT) 25 MG tablet Take 25 mg by mouth daily as needed. 09/01/2020 3 documented as of this encounter Progress Notes * Tobi Thornton MD - 04/01/2022 12:33 PM EDT DAILY PROGRESS NOTE Patient Identification: Name: Margarita Steve Age: 61 yr/o Sex: male : 1960 Date of Service: 04/01/2022 As of December 2020, as required by [...] understanding, non-medical expert opinions, or Internet searches. Reason for visit: Postop follow-up, bilateral LUCERO Subjective: Interval History: He is doing well. Hemoglobin stable. He is doing very well with PT. Objective: Vital signs in last 24 hours: Temp: [98 ??F (36.7 ??C)-99.2 ??F (37.3 ??C)] 98 ??F (36.7 ??C) Pulse: [98-118] 98 Resp: [16-18] 17 BP: (92-135)/(55-86) 92/55 Exam: General appearance: alert, appears stated age and cooperative Head: Normocephalic, without obvious abnormality, atraumatic Lungs: clear to auscultation bilaterally Heart: regular rate and rhythm, S1, S2 normal, no murmur, click, rub or gallop Abdomen: soft, non-tender; bowel sounds normal; no masses; no hepatomegaly, no splenomegaly Extremities: extremities normal, atraumatic, no cyanosis or edema Neurologic: Mental status: Alert, oriented, thought content appropriate Medications: Scheduled Meds: ??? allopurinol 300 mg Oral Daily ??? apixaban 2.5 mg Oral BID ??? budesonide-formoterol 2 puff Inhalation BID (,) ??? docusate sodium 100 mg Oral BID ??? fluticasone 2 spray Nasal Daily ??? hydroCHLOROthiazide 25 mg Oral Daily And ??? lisinopril 20 mg Oral Daily ??? loratadine 10 mg Oral Daily ??? montelukast 10 mg Oral Nightly ??? sertraline 25 mg Oral Daily ??? traZODone 100 mg Oral Nightly Continuous Infusions: ??? sodium chloride 75 mL/hr at 03/30/22 1754 Intake/Output: Intake/Output Summary (Last 24 hours) at 04/01/2022 1233 Last data filed at 04/01/2022 0936 Gross per 24 hour Intake 1500 ml Output 700 ml Net 800 ml Data Review: Recent Results (from the past 24 hour(s)) CBC w/Diff Collection Time: 04/01/22 5:56 AM Result Value Ref Range White Blood Count 10.33 4.5 - 11.0 10*3/uL Red Blood Count 3.60 (L) 4.5 - 5.9 10*6/uL Hemoglobin 12.1 (L) 13.5 - 17.5 g/dL Hematocrit 35.8 (L) 41.0 - 53.0 % Mean Corpuscular Volume 99.4 80.0 - 100.0 fL Mean Corpuscular Hemoglobin 33.6 26.0 - 34.0 pg Mean Corpuscular HGB Conc 33.8 31.0 - 37.0 g/dL Red Cell Distribution Width-CV 13.5 12.0 - 16.8 % Platelet Count 136 (L) 140 - 440 10*3/uL Mean Platelet Volume 10.3 8.4 - 12.4 fL Diff Type CBC w/Manual Differential (arb'U) Neutrophils % 82.0 (H) 45 - 80 % Band Neutrophil% 1.0 0 - 5 % Lymphocyte % 11.0 (L) 15 - 50 % Eosinophil% 1.0 0 - 7 % Myeloctye % 5.0 (H) 0 % Nucleated RBC % 0 0 /100(WBC) Absolute Neutrophil Count 8.57 2.0 - 8.8 /uL Neutrophil Abs 8.47 2.0 - 8.8 10*3/uL Bands-Absolute 0.10 0 - 0.6 10*3/uL Lymphocyte-Absolute 1.14 0.7 - 5.5 10*3/uL EOS-Absolute 0.10 0.0 - 0.8 10*3/uL Myelo-Absolute 0.52 (H) 0 10*3/uL RBC Morphology Comment Normal Normal Platelet Estimate DECREASED (A) Adequate (arb'U) No results found. Assessment: Principal Problem: Primary osteoarthritis of hips, bilateral (03/30/2022) POA: Yes Active Problems: Status post total replacement of both hips 03/30/22 (03/30/2022) POA: Not Applicable Asthma () POA: Yes Hypertension () POA: Yes Sleep apnea (01/14/2020) POA: Yes Stage 3a chronic kidney disease (CMS/HCC) (03/31/2022) POA: Yes Plan: POD#2 DVT prophylaxis with Eliquis Pain adequately controlled Physical therapy recommending home with home health Labs are stable. Hemoglobin 12.1. Renal functions at baseline. Postoperatively currently he is doing well. Vital signs are stable. Respiratory status is stable Continue home antihypertensive Zestoretic Continue home bronchodilators for underlying asthma including albuterol and Symbicort Overall he is stable postoperatively Medically stable for discharge home anytime from my standpoint Tobi Thornton MD [facility] 04/01/2022 12:33 EMR Dragon/Design Assistant disclaimer: Much of this encounter note is an electronic digital sales director/translation of spoken language to printed text. The electronic translation of spoken language may permit erroneous, or at times, nonsensicalwords or phrases to be inadvertently transcribed; Although I have reviewed the note for such errors, some may still exist. * Cholo Dotson MD - 04/01/2022 6:02 AM EDT DAILY PROGRESS NOTE Patient Identification: Name: Margarita Steve Age: 61 yr/o Sex: male : 1960 Subjective: Feels better today Objective: Vital signs in last 24 hours: Temp: [98.1 ??F (36.7 ??C)-99.2 ??F (37.3 ??C)] 98.4 ??F (36.9 ??C) Pulse: [82-118] 108 Resp: [16-18] 18 BP: (104-135)/(62-86) 104/62 Exam: Alert and oriented VSS Afebrile Toes up and down both feet Dressings dry and mild thigh swelling bilaterally. Data Review: CBC: Lab Results Component Value Date WBC 12.75 (H) 03/31/2022 WBC 7.65 01/24/2014 RBC 3.58 (L) 03/31/2022 RBC 4.19 (L) 01/24/2014 HGB 12.1 (L) 03/31/2022 HGB 13.6 01/24/2014 HCT 35.9 (L) 03/31/2022 HCT 38.7 (L) 01/24/2014 PLT 241 01/24/2014 BMP: Lab Results Component Value Date GLUCOSE 175 (H) 03/31/2022 GLUCOSE 90 01/24/2014 NA 136 03/31/2022 NA 139 01/24/2014 POTASSIUM 4.1 03/31/2022 POTASSIUM 4.2 01/24/2014 POTASSIUM 4.1 02/15/2013 CHLORIDE 103 03/31/2022 CHLORIDE 102 01/24/2014 CO2 24 03/31/2022 CO2 29 01/24/2014 BUN 21 03/31/2022 BUN 57 (H) 01/24/2014 CREATININE 1.24 (H) 03/31/2022 CREATININE 2.3 (H) 01/24/2014 CALCIUM 8.7 03/31/2022 CALCIUM 8.4 01/24/2014 Coagulation: No results found for: PT, INR, PTT Assessment: Principal Problem: Primary osteoarthritis of hips, bilateral (03/30/2022) POA: Yes Active Problems: Asthma () POA: Yes Hypertension () POA: Yes Sleep apnea (01/14/2020) POA: Yes Status post total replacement of both hips 03/30/22 (03/30/2022) POA: Not Applicable Stage 3a chronic kidney disease (CMS/HCC) (03/31/2022) POA: Yes Did a little better with PT yesterday Plan: Plan home today if safe with PT Cholo Dotson 04/01/2022 6:02 AM * Mary Ann Cristina APRN - 03/31/2022 1:02 PM EDT Hand hygiene discussed with patient and demonstrated during dressing change. Dressing changed to operative site- right anterior hip as there was moderate drainage on the Aquacel AG dressing which started to leak through bandage. Old dressing removed.No active drainage. No erythema. Mild ecchymosis and swelling. New Aquacel AG dressing applied and discussed with pt- frequency dressing changes and showering with dressing. Left anterior hip dressing with minimal drainage- no dressing change to left Aquacel AG dressing that was placed in the OR. Patient verbalized understanding of dressing and monitoring for surgical site infections. Discussed importance of continuing mobility, hydration, ankle pumps, usage of incentive spirometer as well as taking medication as directed. Discussed importance of these interventions to decrease risk of deep/ superficial vein thrombosis, pulmonary embolus, constipation, pneumonia. Time allowed for all questions and concerns. Mary Ann Cristnia APRN * Tobi Thornton MD - 03/31/2022 12:37 PM EDT DAILY PROGRESS NOTE Patient Identification: Name: Margarita Steve Age: 61 yr/o Sex: male : 1960 Date of Service: 03/31/2022 As of December 2020, as required by [...] understanding, non-medical expert opinions, or Internet searches. Reason for visit: Postop follow-up, bilateral LUCERO Subjective: Interval History: He has some expected discomfort in the hip. Creatinine is 1.24 which is at baseline from last month. Hemoglobin 12.1. Vital signs are stable. Objective: Vital signs in last 24 hours: Temp: [97.9 ??F (36.6 ??C)-99.9 ??F (37.7 ??C)] 98.7 ??F (37.1 ??C) Pulse: [76-107] 82 Resp: [8-18] 16 BP: (98-140)/(56-84) 127/71 FiO2: [21 %-99 %] 21 % Exam: General appearance: alert, appears stated age and cooperative Head: Normocephalic, without obvious abnormality, atraumatic Lungs: clear to auscultation bilaterally Heart: regular rate and rhythm, S1, S2 normal, no murmur, click, rub or gallop Abdomen: soft, non-tender; bowel sounds normal; no masses; no hepatomegaly, no splenomegaly Extremities: extremities normal, atraumatic, no cyanosis or edema Neurologic: Mental status: Alert, oriented, thought content appropriate Medications: Scheduled Meds: ??? allopurinol 300 mg Oral Daily ??? apixaban 2.5 mg Oral BID ??? budesonide-formoterol 2 puff Inhalation BID (7,7) ??? docusate sodium 100 mg Oral BID ??? fluticasone 2 spray Nasal Daily ??? hydroCHLOROthiazide 25 mg Oral Daily And ??? lisinopril 20 mg Oral Daily ??? loratadine 10 mg Oral Daily ??? montelukast 10 mg Oral Nightly ??? sertraline 25 mg Oral Daily ??? traZODone 100 mg Oral Nightly Continuous Infusions: ??? sodium chloride 75 mL/hr at 03/30/22 1754 Intake/Output: Intake/Output Summary (Last 24 hours) at 03/31/2022 1237 Last data filed at 03/31/2022 0854 Gross per 24 hour Intake 3029.7 ml Output 1675 ml Net 1354.7 ml Data Review: Recent Results (from the past 24 hour(s)) CBC w/Diff Collection Time: 03/31/22 3:22 AM Result Value Ref Range White Blood Count 12.75 (H) 4.5 - 11.0 10*3/uL Red Blood Count 3.58 (L) 4.5 - 5.9 10*6/uL Hemoglobin 12.1 (L) 13.5 - 17.5 g/dL Hematocrit 35.9 (L) 41.0 - 53.0 % Mean Corpuscular Volume 100.3 (H) 80.0 - 100.0 fL Mean Corpuscular Hemoglobin 33.8 26.0 - 34.0 pg Mean Corpuscular HGB Conc 33.7 31.0 - 37.0 g/dL Red Cell Distribution Width-CV 13.3 12.0 - 16.8 % Platelet Count 149 140 - 440 10*3/uL Mean Platelet Volume 10.1 8.4 - 12.4 fL Diff Type Hospital CBC w/AutoDiff (arb'U) Neutrophils % 82.9 (H) 45 - 80 % Lymphocyte % 8.2 (L) 15 - 50 % Monocyte % 8.2 0 - 15 % Eosinophil% 0.2 0 - 7 % BASO% 0.1 0 - 2 % Immature Granulocyte% 0.4 0.0 - 1.0 % Nucleated RBC % 0 0 /100(WBC) Neutrophil Abs 10.58 (H) 2.0 - 8.8 10*3/uL Lymphocyte-Absolute 1.05 0.7 - 5.5 10*3/uL Monocyte Absolute 1.04 0.0 - 1.7 10*3/uL EOS-Absolute 0.02 0.0 - 0.8 10*3/uL Basophil Abs 0.01 0.0 - 0.2 10*3/uL Immature Granulocyte Abs 0.05 0.00 - 0.10 10*3/uL Basic Metabolic Panel (BMP) Collection Time: 03/31/22 3:22 AM Result Value Ref Range Sodium 136 136 - 145 mmol/L Potassium 4.1 3.5 - 5.1 mmol/L Chloride 103 98 - 107 mmol/L Carbon Dioxide 24 22 - 29 mmol/L Anion Gap 9 5 - 13 (arb'U) Glucose 175 (H) 71 - 139 mg/dL Blood Urea Nitrogen (BUN) 21 8 - 26 mg/dL Creatinine-Blood 1.24 (H) 0.73 - 1.18 mg/dL BUN/Creatinine Ratio 16.9 RATIO Estimated GFR 59 (L) >60 /1.73 m2 Estimated GFR if -Ethiopian >60 >60 /1.73 m2 Calcium 8.7 8.4 - 10.2 mg/dL XR Hip 1 Vw RT Result Date: 03/30/2022 REVIEWING YOUR TEST RESULTS IN [facility] IS NOT A SUBSTITUTE FOR DISCUSSING THOSE RESULTS WITH YOUR HEALTH CARE PROVIDER. PLEASE CONTACT YOUR PROVIDER VIA [facility] TO DISCUSS ANY QUESTIONS OR CONCERNS YOU MAY HAVE REGARDING THESE TEST RESULTS. RADIOLOGY REPORT FACILITY: [facility] UNIT/AGE/GENDER: M.PERIOP OP AGE:61 Y SEX:M PATIENT NAME/: MARGARITA STEVE D 1960 UNIT NUMBER: [id number] ACCESSION NUMBER: [id number] Intraoperative fluoroscopic images of the XR HIP 1 VW RT, XR HIP 1 VW LT 03/30/2022 1:51 PM HISTORY: surgery COMPARISON: None. TECHNIQUE: 2 Intraoperative fluoroscopic images of the left hip and right hip were obtained. Total fluoroscopy time 26.4 seconds. FINDINGS: Images show bilateral total hip arthroplasties in place. IMPRESSION: Intraoperative fluoroscopic images of the hips performed for surgical planning purposes. Dictated by: Eron Mills M.D. Images and Report reviewed and interpreted by: Eron Mills M.D. <PS><Electronically signed by: Eron Mills M.D.> 03/30 1406 1405 1405 XR Pelvis One Or Two Views Result Date: 03/30/2022 REVIEWING YOUR TEST RESULTS IN [facility] IS NOT A SUBSTITUTE FOR DISCUSSING THOSE RESULTS WITH YOUR HEALTH CARE PROVIDER. PLEASE CONTACT YOUR PROVIDER VIA [facility] TO DISCUSS ANY QUESTIONS OR CONCERNS YOU MAY HAVE REGARDING THESE TEST RESULTS. RADIOLOGY REPORT FACILITY: [facility] UNIT/AGE/GENDER: M.PERIOP OP AGE:61 Y SEX:M PATIENT NAME/: MARGARITA STEVE Mary Ellen 1960 UNIT NUMBER: [id number] ACCESSION NUMBER: [id number] EXAMINATION: Pelvis. DATE: 03/30/2022 at 1524. COMPARISON: None. CLINICAL HISTORY: Avascular necrosis of both femoral heads. Underwent bilateral hip arthroplasty today. Initial encounter. FINDINGS: An AP view of the pelvis shows bipolar hip arthroplasty devices bilaterally, with a cerclage wire noted on the left. There is near-anatomic alignment and positioning. Overall bone mineralization is within normal limits, and there are no acute fractures. Postoperative changes of previous L5-S1 fusion are incidentally identified. Multiple calcified phleboliths are evident. IMPRESSION: Immediately postop bilat eral hip arthroplasty. Dictated by: Dayo Jordan M.D. Images and Report reviewed and interpreted by: Dayo Jordan M.D. <PS><Electronically signed by: Dayo Jordan M.D.> 03/30/2022 1641 [id number] FL C-Arm Greater than 1 Hour Result Date: 03/30/2022 Images were obtained for surgical purposes. See Cholo Dotson's surgical note in the patient's chartfor the findings. Assessment: Principal Problem: Primary osteoarthritis of hips, bilateral (03/30/2022) POA: Yes Active Problems: Status post total replacement of both hips 03/30/22 (03/30/2022) POA: Not Applicable Asthma () POA: Yes Hypertension () POA: Yes Sleep apnea (01/14/2020) POA: Yes Stage 3a chronic kidney disease (CMS/HCC) (03/31/2022) POA: Yes Plan: POD#1 DVT prophylaxis with Eliquis IV fluids may be discontinued Pain adequately controlled Physical therapy Labs are stable. Hemoglobin 12.1. Renal functions at baseline. Postoperatively currently he is doing well. Vital signs are stable. Respiratory status is stable Continue home antihypertensive Zestoretic Continue home bronchodilators for underlying asthma including albuterol and Symbicort Overall he is stable postoperatively Medically stable for discharge home anytime from my standpoint Tobi Thornton MD [facility] 03/31/2022 12:37 EMR Dragon/Design Assistant disclaimer: Much of this encounter note is an electronic digital sales director/translation of spoken language to printed text. The electronic translation of spoken language may permit erroneous, or at times, nonsensicalwords or phrases to be inadvertently transcribed; Although I have reviewed the note for such errors, some may still exist. * Cholo Dotson MD - 03/31/2022 7:38 AM EDT DAILY PROGRESS NOTE Patient Identification: Name: Margarita Steve Age: 61 yr/o Sex: male : 1960 Subjective: Feels ok but sore Objective: Vital signs in last 24 hours: Temp: [97.7 ??F (36.5 ??C)-99.9 ??F (37.7 ??C)] 99.6 ??F (37.6 ??C) Pulse: [73-107] 98 Resp: [8-18] 16 BP: (98-145)/(56-90) 140/77 FiO2: [21 %-99 %] 21 % Exam: Alert and oriented VSS Afebrile Toes up and down both feet. Dressings dry. Data Review: CBC: Lab Results Component Value Date WBC 12.75 (H) 03/31/2022 WBC 7.65 01/24/2014 RBC 3.58 (L) 03/31/2022 RBC 4.19 (L) 01/24/2014 HGB 12.1 (L) 03/31/2022 HGB 13.6 01/24/2014 HCT 35.9 (L) 03/31/2022 HCT 38.7 (L) 01/24/2014 PLT 241 01/24/2014 BMP: Lab Results Component Value Date GLUCOSE 175 (H) 03/31/2022 GLUCOSE 90 01/24/2014 NA 136 03/31/2022 NA 139 01/24/2014 POTASSIUM 4.1 03/31/2022 POTASSIUM 4.2 01/24/2014 POTASSIUM 4.1 02/15/2013 CHLORIDE 103 03/31/2022 CHLORIDE 102 01/24/2014 CO2 24 03/31/2022 CO2 29 01/24/2014 BUN 21 03/31/2022 BUN 57 (H) 01/24/2014 CREATININE 1.24 (H) 03/31/2022 CREATININE 2.3 (H) 01/24/2014 CALCIUM 8.7 03/31/2022 CALCIUM 8.4 01/24/2014 Coagulation: No results found for: PT, INR, PTT Assessment: Principal Problem: Primary osteoarthritis of hips, bilateral (03/30/2022) POA: Yes Active Problems: Asthma () POA: Yes Hypertension () POA: Yes Sleep apnea (01/14/2020) POA: Yes Status post total replacement of both hips 03/30/22 (03/30/2022) POA: Not Applicable Hb 12.1 Creatinine 1.24 chronic eleveation On Eliquis for dvt ppx Plan: DC home when safe to ambulate. Cholo Dotson 03/31/2022 7:38 AM documented in this encounter H&P Notes * Cholo Dotson MD - 03/30/2022 8:35 AM EDT HISTORY & PHYSICAL INTERVAL Margarita Steve 61 yr/o 1960 male [id number] Current Vital Signs: BP (!) 145/90 (BP Location: Left arm, Orthostatic Position: Sitting) Pulse 73 Temp 97.7 ??F (36.5 ??C) (Temporal) Resp 18 Ht 5' 8 (1.727 m) Wt 87.9 kg (193 lb 12.8 oz) SpO2 99% BMI 29.47 kg/m?? History & Physical Status: The H&P was reviewed, the patient examined. There have been no significant clinical changes in the patient's condition since the completion of the H&P. Review of Systems: No chest pain or shortness of air Patient has difficulty ambulating with loss of motion of both hips. He has a very short and stiltedgait. Skin is intact over both hips and he has normal neurovascular exam of both lower extremities.He has severe arthritis of both hips secondary to avascular necrosis. With hips are equally severe and the patient has requested bilateral simultaneous hip replacements. I explained to him the increased risks with doing both at the same time. He understands and wishes to proceed with bilateral total hip replacements. Cholo Dotson 03/30/2022 8:35 AM Source Note - Ange Campos, LANDSCAPE SUPERVISOR - 03/01/2022 10:26 AM EDT History & Physical Patient Identification: Name: Margarita Steve Age: 61 yr/o Sex: male : 1960 Chief Complaint: pre op evaluation History of Present Illness: Here today for preadmission testing, pt scheduled for Bilateral total hip arthroplasty anterior approach (planned observation) No issues reported with anesthesia in the past. Problem List: Bilateral hip pain Arthritis Asthma Sleep apnea HTN Past Medical History: Past Medical History: Diagnosis Date ??? Asthma ??? Cervical stenosis of spine ??? CPAP (continuous positive airway pressure) dependence ??? Degenerative disc disease, cervical ??? ED (erectile dysfunction) ??? Hypertension ??? Seasonal allergies ??? Sleep apnea uses cpap Past Surgical History: Past Surgical History: Procedure Laterality Date ??? ANTERIOR CERVICAL DISCECTOMY W/ FUSION 2011 C6 - C8 welded together ??? COLONOSCOPY ??? KNEE SURGERY 2011 FOR TORN LIGAMENT ??? SHOULDER SURGERY 2010 ??? SPINE SURGERY L5 - S1 laminectomy Social History: Social History Tobacco Use ??? Smoking status: Never Smoker ??? Smokeless tobacco: Never Used Substance Use Topics ??? Alcohol use: Yes Comment: socially Family History: Family History Problem Relation Age of Onset ??? Other Mother pneumonia ??? Cancer, Other or Unknown Type Father prostate Immunizations: Immunization History Name Date COVID-19 Pfizer PURPLE Ages 12 and Older 01/19/2021 COVID-19 Pfizer PURPLE Ages 12 and Older 12/26/2020 Influenza TIV (IM) 06/28/2017 Influenza Vaccine Quadrivalent Pf 09/22/2020 Influenza Vaccine Quadrivalent Pf 07/03/2018 Influenza, Injectable, MDCK, Preservative Free, Quadrivalent 07/23/2019 Pneumococcal Conjugate 13-Valent 07/23/2019 Pneumococcal Polysaccharide 23 07/03/2018 Pneumococcal Polysaccharide 23 06/28/2017 Allergies: No Known Allergies Home Medications: Current Outpatient Medications: ??? albuterol (PROVENTIL HFA;VENTOLIN HFA) 108 (90 BASE) MCG/ACT inhaler, Inhale 2 puffs into the lungs every 6 (six) hours as needed for Wheezing . , Disp: , Rfl: ??? albuterol HFA 108 (90 Base) MCG/ACT inhaler, Inhale 2 puffs into the lungs., Disp: , Rfl: ??? allopurinol (ZYLOPRIM) 100 MG tablet, TAKE 1 TABLET BY MOUTH EVERY DAY, Disp: , Rfl: 0 ??? allopurinol (ZYLOPRIM) 300 MG tablet, Take 300 mg by mouth daily . , Disp: , Rfl: ??? Cholecalciferol (VITAMIN D) 25 MCG (1000 UNIT) tablet, Take 1,000 Units by mouth daily., Disp: , Rfl: ??? DULERA 200-5 MCG/ACT AERO inhaler, Inhale 2 puffs into the lungs 2 (two) times daily . , Disp: , Rfl: 3 ??? fexofenadine (GABBIE) 180 MG tablet, Take 180 mg by mouth daily . , Disp: , Rfl: ??? fluticasone (FLONASE) 50 MCG/ACT nasal spray, Instill 2 sprays into nose daily . , Disp: , Rfl: ??? fluticasone (FLONASE) 50 MCG/ACT nasal spray, SPRAY 2 SPRAYS INTO EACH NOSTRIL EVERY DAY, Disp:, Rfl: 1 ??? lisinopril (PRINIVIL,ZESTRIL) 10 MG tablet, Take 10 mg by mouth daily, Disp: , Rfl: ??? lisinopril-hydrochlorothiazide (PRINZIDE,ZESTORETIC) 20-25 MG per tablet, Take 1 tablet by mouth daily., Disp: , Rfl: ??? lisinopril-hydroCHLOROthiazide (PRINZIDE,ZESTORETIC) 20-25 MG, Take 1 tablet by mouth., Disp: ,Rfl: ??? mometasone furo-formoterol (DULERA) 200-5 MCG/ACT AERO inhaler, Inhale 2 puffs into the lungs 2 (two) times daily . , Disp: , Rfl: ??? Mometasone Furo-Formoterol Fum (DULERA IN), Inhale into the lungs, Disp: , Rfl: ??? montelukast (SINGULAIR) 10 MG tablet, Take 10 mg by mouth nightly . , Disp: , Rfl: 3 ??? Multiple Vitamin (MULTIVITAMIN ADULT PO), Take 1 tablet by mouth daily., Disp: , Rfl: ??? [START ON 03/25/2022] mupirocin (BACTROBAN) 2 % ointment, Apply 1 Application topically 2 (two) times daily for 5 days Apply to each nostril bid for 5 days before surgery and morning of surgery., Disp: 22 g, Rfl: 0 ??? oseltamivir (TAMIFLU) 75 MG capsule, Take 1 capsule by mouth 2 (two) times daily for 5 days, Disp: 10 capsule, Rfl: 0 ??? oseltamivir (TAMIFLU) 75 MG capsule, Take 1 capsule (75 mg total) by mouth 2 (two) times daily., Disp: 10 capsule, Rfl: 0 ??? sertraline (ZOLOFT) 25 MG tablet, Take 25 mg by mouth daily., Disp: , Rfl: ??? SPIRIVA RESPIMAT AERS, USE 2 INHALATIONS ONCE DAILY, Disp: , Rfl: 1 ??? tadalafil (CIALIS) 20 MG tablet, Take 20 mg by mouth., Disp: , Rfl: ??? tadalafil (CIALIS) 20 MG tablet, Take 1 tablet (20 mg total) by mouth daily as needed for Erectile Dysfunction., Disp: 10 tablet, Rfl: 0 ??? testosterone cypionate (DEPOTESTOTERONE CYPIONATE) 200 MG/ML injection, INJECT O.5MG EVERY WEEK, Disp: , Rfl: ??? testosterone cypionate (DEPOTESTOTERONE CYPIONATE) 200 MG/ML injection, INJECT 0.5 ML INTO THE MUSCLE EVERY WEEK DIRECTED... NEEDS 18 G AND 22 G SYRINGES, Disp: , Rfl: 5 ??? tiotropium bromide monohydrate (SPIRIVA RESPIMAT) AERS, Inhale 2 puffs into the lungs daily . ,Disp: , Rfl: ??? traZODone (DESYREL) 100 MG tablet, Take 100 mg by mouth., Disp: , Rfl: ??? traZODone (DESYREL) 100 MG tablet, Take 1 tablet by mouth nightly, Disp: 30 tablet, Rfl: 3 ??? traZODone (DESYREL) 100 MG tablet, Take 0.5 tablets (50 mg total) by mouth nightly as needed for Sleep., Disp: 30 tablet, Rfl: 0 ??? vitamin E 100 UNIT capsule, Take 100 Units by mouth daily., Disp: , Rfl: Review of Systems: Review of Systems Constitutional: Negative for chills. HENT: Negative for congestion. Eyes: Negative for visual disturbance. Respiratory: Negative for cough, chest tightness, shortness of breath and wheezing. Cardiovascular: Negative for chest pain and leg swelling. Gastrointestinal: Negative for abdominal pain. Endocrine: Negative. Genitourinary: Negative for difficulty urinating. Musculoskeletal: Positive for arthralgias. Skin: Negative for rash. Allergic/Immunologic: Negative. Neurological: Negative for dizziness and seizures. Hematological: Negative. Psychiatric/Behavioral: The patient is nervous/anxious. Vital Signs: Blood pressure 111/72, pulse 90, height 5' 8 (1.727 m), weight 90.7 kg (200 lb), [id number] %. Body mass index is 30.41 kg/m??. Physical Examination: Physical Exam Vitals reviewed. Constitutional: Appearance: Normal appearance. Cardiovascular: Rate and Rhythm: Normal rate and regular rhythm. Pulmonary: Effort: Pulmonary effort is normal. Breath sounds: Normal breath sounds. Neurological: Mental Status: He is alert and oriented to person, place, and time. Psychiatric: Mood and Affect: Mood normal. Behavior: Behavior normal. Assessment: Arthritis of both hips Plan: Bilateral total hip arthroplasty anterior approach (planned observation 03.30.[address] Mauri Hassan e-scribed Labs, EKG reviewed ERAS (Enhanced Recovery After Surgery) was discussed with the patient and all questions were answered. Patient was given the following instructions: The day before surgery: -Regular diet -Drink 1 bottle of Ensure Pre-Surgery at 2000 -Drink 1 bottle of Ensure Pre-Surgery at 2200 The day of surgery: -Drink 1 bottle of Ensure Pre-Surgery before leaving to come to the hospital and note the time so it can be reported to the Pre-Op nurse -Clear Liquid diet only -Take 1000mg of Tylenol before leaving to come to the hospital -NPO 3 hours before surgery Patient given PAT phone number to call with any questions Patient given 3 bottles of Ensure Pre-Surgery Disposition: planned observation Ange Campos 03/01/2022 documented in this encounter Consult Notes * Tobi Thornton MD - 03/30/2022 4:48 PM EDTAssociated Order(s): IP CONSULT TO HOSPITALIST Images from the original note were not included. INTERNAL MEDICINE/HOSPITALIST CONSULT NOTE As of December 2020, as required by [...] understanding, non-medical expert opinions, or Internet searches. Patient Identification: Name: Margarita Steve Age: 61 yr/o Sex: male : 1960 Date of Service: 03/30/2022 Requesting Physician: As per consult order. Primary care physician: Keanu Brooks DO Reason for Consultation: Postoperative medical management, hypertension, pain control, sleep apnea Service: Internal Medicine/Hospitalist - [facility] History of Present Illness: Patient is a 61-year-old male with history of sleep apnea, hypertension, asthma who underwent bilateral total hip arthroplasty anterior approach today secondary to osteoarthritis involving both hips. He had failed conservative management. He decided to undergo both hip replacements at the same time. Postoperatively he is doing well. He is somewhat drowsy but arousable.His pain is adequately controlled. Denies having any chest pain, shortness of breath, nausea or vomiting. Postoperative vital signs are stable. Review of Systems Constitutional: Denies fever or chills Eyes: Denies change in visual acuity HENT: Denies nasal congestion or sore throat Respiratory: Denies cough or shortness of breath Cardiovascular: Denies chest pain or edema GI: Denies abdominal pain, nausea, vomiting, bloody stools or diarrhea : Denies dysuria Musculoskeletal: Denies back pain or joint pain Integument: Denies rash Neurologic: Denies headache, focal weakness or sensory changes Endocrine: Denies polyuria or polydipsia Lymphatic: Denies swollen glands Psychiatric: Denies depression or anxiety Past Medical History: Past Medical History: Diagnosis Date ??? Asthma ??? Cervical stenosis of spine ??? CPAP (continuous positive airway pressure) dependence ??? Degenerative disc disease, cervical ??? ED (erectile dysfunction) ??? Hypertension ??? Seasonal allergies ??? Sleep apnea uses cpap Past Surgical History: Past Surgical History: Procedure Laterality Date ??? ANTERIOR CERVICAL DISCECTOMY W/ FUSION 2011 C6 - C8 welded together ??? COLONOSCOPY ??? KNEE SURGERY 2011 FOR TORN LIGAMENT ??? SHOULDER SURGERY 2010 ??? SPINE SURGERY L5 - S1 laminectomy Home Meds: Home Medications Medication Sig Start Date End Date Taking? Authorizing Provider albuterol (PROVENTIL HFA;VENTOLIN HFA) 108 (90 BASE) MCG/ACT inhaler Inhale 2 puffs into the lungs every 6 (six) hours as needed for Wheezing . Yes Provider, Historical albuterol HFA 108 (90 Base) MCG/ACT inhaler Inhale 2 puffs into the lungs. 12/22/18 03/30/22 Provider,Historical allopurinol (ZYLOPRIM) 100 MG tablet TAKE 1 TABLET BY MOUTH EVERY DAY 07/09/19 03/30/22 Provider, Historical allopurinol (ZYLOPRIM) 300 MG tablet Take 300 mg by mouth daily . 07/31/19 Yes Provider, Historical Cholecalciferol (VITAMIN D) 25 MCG (1000 UNIT) tablet Take 1,000 Units by mouth daily. Provider, Historical DULERA 200-5 MCG/ACT AERO inhaler Inhale 2 puffs into the lungs 2 (two) times daily . 05/28/19 Yes Provider, Historical fexofenadine (GABBIE) 180 MG tablet Take 180 mg by mouth daily . 12/08/19 Yes Provider, Historical fluticasone (FLONASE) 50 MCG/ACT nasal spray Instill 2 sprays into nose 2 (two) times daily. 12/06/18 Yes Provider, Historical fluticasone (FLONASE) 50 MCG/ACT nasal spray SPRAY 2 SPRAYS INTO EACH NOSTRIL EVERY DAY 05/28/19 03/30/22 Provider, Historical lisinopril (PRINIVIL,ZESTRIL) 10 MG tablet Take 10 mg by mouth daily 03/30/22 Provider, Historical lisinopril-hydrochlorothiazide (PRINZIDE,ZESTORETIC) 20-25 MG per tablet Take 1 tablet by mouth daily. Yes Provider, Historical lisinopril-hydroCHLOROthiazide (PRINZIDE,ZESTORETIC) 20-25 MG Take 1 tablet by mouth. 01/08/19 03/30/22 Provider, Historical mometasone furo-formoterol (DULERA) 200-5 MCG/ACT AERO inhaler Inhale 2 puffs into the lungs 2 (two) times daily . 11/27/18 Provider, Historical Mometasone Furo-Formoterol Fum (DULERA IN) Inhale into the lungs Provider, Historical montelukast (SINGULAIR) 10 MG tablet Take 10 mg by mouth nightly . Patient not taking: Reported on 03/30/2022. 05/28/19 Provider, Historical Multiple Vitamin (MULTIVITAMIN ADULT PO) Take 1 tablet by mouth daily. Provider, Historical mupirocin (BACTROBAN) 2 % ointment Apply 1 Application topically 2 (two) times daily for 5 days Apply to each nostril bid for 5 days before surgery and morning of surgery. 03/25/22 03/30/22 Yes Ange Campos APRN oseltamivir (TAMIFLU) 75 MG capsule Take 1 capsule by mouth 2 (two) times daily for 5 days 12/04/15 03/30/22 Laurita Hernandez MD oseltamivir (TAMIFLU) 75 MG capsule Take 1 capsule (75 mg total) by mouth 2 (two) times daily. 09/22/12 03/30/22 Devon Haskins MD sertraline (ZOLOFT) 25 MG tablet Take 25 mg by mouth daily. 09/01/20 Yes Provider, Historical SPIRIVA RESPIMAT AERS USE 2 INHALATIONS ONCE DAILY 05/28/19 03/30/22 Provider, Historical tadalafil (CIALIS) 20 MG tablet Take 20 mg by mouth. 07/23/19 03/30/22 Provider, Historical tadalafil (CIALIS) 20 MG tablet Take 1 tablet (20 mg total) by mouth daily as needed for Erectile Dysfunction. 08/04/13 Yes Andrea Phillip MD testosterone cypionate (DEPOTESTOTERONE CYPIONATE) 200 MG/ML injection INJECT 0.5 ML INTO THE MUSCLE EVERY WEEK DIRECTED... NEEDS 18 G AND 22 G SYRINGES 06/23/19 Yes Provider, Historical testosterone cypionate (DEPOTESTOTERONE CYPIONATE) 200 MG/ML injection INJECT O.5MG EVERY WEEK 10/18/18 03/30/22 Provider, Historical tiotropium bromide monohydrate (SPIRIVA RESPIMAT) AERS Inhale 2 puffs into the lungs daily . 12/21/18Provider, Historical traZODone (DESYREL) 100 MG tablet Take 100 mg by mouth. 01/08/19 03/30/22 Provider, Historical traZODone (DESYREL) 100 MG tablet Take 1 tablet by mouth nightly 04/01/14 Yes Mar Chambers MD traZODone (DESYREL) 100 MG tablet Take 0.5 tablets (50 mg total) by mouth nightly as needed for Sleep. 08/04/13 03/30/22 Andrea Phillip MD vitamin E 100 UNIT capsule Take 100 Units by mouth daily. Provider, Historical Allergies: Allergies as of 03/30/2022 Review status set to Review Complete by Simran Dumont RN on 03/30/2022 No Known Allergies Social History: Social History Tobacco Use ??? Smoking status: Never Smoker ??? Smokeless tobacco: Never Used Substance Use Topics ??? Alcohol use: Yes Comment: socially Family History: Family History Problem Relation Age of Onset ??? Other Mother pneumonia ??? Cancer, Other or Unknown Type Father prostate Immunization History: Immunization History Name Date COVID-19 Pfizer PURPLE Ages 12 and Older 01/19/2021 COVID-19 Pfizer PURPLE Ages 12 and Older 12/26/2020 Influenza TIV (IM) 06/28/2017 Influenza Vaccine Quadrivalent Pf 09/22/2020 Influenza Vaccine Quadrivalent Pf 07/03/2018 Influenza, Injectable, MDCK, Preservative Free, Quadrivalent 07/23/2019 Pneumococcal Conjugate 13-Valent 07/23/2019 Pneumococcal Polysaccharide 23 07/03/2018 Pneumococcal Polysaccharide 23 06/28/2017 Objective: General Appearance: sleepy and but arousable Vitals: BP (!) 121/81 (BP Location: Left arm, Orthostatic Position: Lying) Pulse 97 Temp 99.9 ??F (37.7??C) (Temporal) Resp 16 Ht 5' 8 (1.727 m) Wt 87.5 kg (193 lb) SpO2 96% BMI 29.35 kg/m?? Exam: BP (!) 121/81 (BP Location: Left arm, Orthostatic Position: Lying) Pulse 97 Temp 99.9 ??F (37.7??C) (Temporal) Resp 16 Ht 5' 8 (1.727 m) Wt 87.5 kg (193 lb) SpO2 96% BMI 29.35 kg/m?? General Appearance: Alert, cooperative, no distress, appears stated age Head: Normocephalic, without obvious abnormality, atraumatic Eyes: PERRL, conjunctiva/corneas clear Ears: Normal TM's and external ear canals, both ears Nose: Nares normal, septum midline, mucosa normal, no drainage or sinus tenderness Throat: Lips, mucosa, and tongue normal; teeth and gums normal Neck: Supple, symmetrical, trachea midline, no adenopathy; thyroid: No enlargement/tenderness/nodules; no carotid bruit or JVD Back: Symmetric, no curvature, ROM normal, no CVA tenderness Lungs: Clear to auscultation bilaterally, respirations unlabored Chest wall: No tenderness or deformity Heart: Regular rate and rhythm, S1 and S2 normal, no murmur, rub or gallop Abdomen: Soft, non-tender, bowel sounds active all four quadrants, no masses, no organomegaly Extremities: Extremities normal, atraumatic, no cyanosis or edema Pulses: 2+ and symmetric all extremities Skin: Skin color, texture, turgor normal, no rashes or lesions Neurologic: CNII-XII intact. Normal strength, sensation and reflexes throughout I have performed all the rest of the elements in the 9 systems Data Review: Recent Results (from the past 24 hour(s)) Glucose-Glucometer Collection Time: 03/30/22 8:49 AM Result Value Ref Range Glucose Glucometer 118 71 - 139 mg/dL Type and Screen Collection Time: 03/30/22 11:29 AM Result Value Ref Range ABO/Rh(D) O Positive Antibody Screen Negative Crossmatch Expiration 04/02/2022,2359 Assessment: Principal Problem: Primary osteoarthritis of hips, bilateral (03/30/2022) POA: Yes Active Problems: Status post total replacement of both hips 03/30/22 (03/30/2022) POA: Not Applicable Asthma () POA: Yes Hypertension () POA: Yes Sleep apnea (01/14/2020) POA: Yes Recommendations: POD#0 DVT prophylaxis with Eliquis IV fluids Postoperative pain control Physical therapy Follow labs in the morning Home medications reviewed Postoperatively currently he is doing well. Vital signs are stable. He will use his CPAP machine for underlying sleep apnea Vital signs are stable, resume home antihypertensive Zestoretic Continue home bronchodilators for underlying asthma including albuterol and Symbicort Overall he is stable postoperatively Thank you for the consult, we will follow hospital course Tobi Thornton MD [facility] 03/30/2022 4:48 PM EMR Dragon/Design Assistant disclaimer: Much of this encounter note is an electronic digital sales director/translation of spoken language to printed text. The electronic translation of spoken language may permit erroneous, or at times, nonsensicalwords or phrases to be inadvertently transcribed; Although I have reviewed the note for such errors, some may still exist. documented in this encounter Miscellaneous Notes * Pharmacy - Venessa Monreal RPH - 04/01/2022 2:06 PM EDT Pharmacy Transitions of Care - Medication History and Discharge Counseling A comprehensive medication review was completed for Margarita Steve on 04/01/2022 at the time of discharge. The prior to admission medication list and counseling reviewed with the patient. If changes to the medication list were made, they are outlined below. Summary of silvestre changes made to medication list: ?? Medication dose/frequency changed to match home regimen: trazodone 300 mg QHS Discharge Counseling: Counseling was provided on the following medication(s): oxycodone-acetaminophen, apixaban Disease state education: ?? Opioid safety/pain - I counseled patient on opioid pain medication. Counseling points included, but were not limited to, directions for use, indication, proper disposal, potential for drowsiness, potential for constipation, and maximum daily amount of acetaminophen that should be taken in a 24 hour period. ?? Anticoagulation for VTE prevention - Patient was counseled on apixaban, including how to take the medication, indication, ssx of a bleed/clot and when to seek emergency medical attention, durationof therapy, importance of letting all HCP know about anticoagulant therapy, interaction with NSAID medications.. Please feel free to contact me with any questions, Venessa Monreal, PharmD, BCACP Transitions of Care Clinical Pharmacist Specialist [facility] Office: * Occupational Therapy - Frida Fernandes OT - 04/01/2022 2:06 PM EDT [facility] Patient Room Number: 505/505-1 Patient Identification: Margarita Steve is a 61 yr/o male. 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 providers found OT Order (From admission, onward) OT Eval and Treat Once, Status: Canceled Ordering Provider: Mary Ann Cristina, TANG Note Type: Discharge Discharge Summary - 04/02/22 0811 Discharge Summary Therapy Discharge Date 04/02/22 Therapy Status Upon Discharge Refer to last treatment note Goal Status Upon Discharge Goals not met Reason For Discharge Discharged from hospital Recommended Therapy After Discharge Home health Frida Fernandes OT * Physical Therapy - Loren Lynn PTA - 04/01/2022 2:06 PM EDT Images from the original note were not included. [facility] Patient Room Number: 505/505-1 Patient Identification: Margarita Steve is a 61 yr/o male. 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 providers found PT Order (From admission, onward) PT Evaluate and Treat Once, Status: Canceled Ordering Provider: Cholo Dotson MD Note Type: Discharge PT Discharge Summary - 04/01/22 1619 Discharge Summary Therapy Discharge Date 04/01/22 Status Upon Discharge Refer to last treatment note Goal Status Upon Discharge Goals completely met Reason For Discharge Goals met;Discharged from hospital Therapy Recommendations Home health with family support Loren Lynn PTA Cosigned by Concha Sharma, PT at 04/02/2022 9:05 AM EDT * Nurse - Nereyda Mcdonough RN - 04/01/2022 2:06 PM EDT Pt discharged home with his . IV removed. Prescriptions given. AVS given. VSS. Bilateral aquacel dressings in place clean, dry and intact noted. BSC and RW given All questions answered. Pt transported in wheelchair to private transportation * Physical Therapy - ShaneLoren curtis, LEANNE - 04/01/2022 11:50 AM EDT Images from the original note were not included. [facility] Patient Room Number: 505/505-1 Patient Identification: Margarita Steve is a 61 yr/o male. 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] Attending Provider: Cholo Dotson MD PT Order (From admission, onward) PT Evaluate and Treat Once Ordering Provider: Cholo Dotson MD Note Type: Treatment PT Treatment - 04/01/22 1150 General Current Hospitalization Summary Patient is a 61-year-old male with history of sleep apnea, hypertension, asthma who underwent bilateral total hip arthroplasty anterior approach secondary to osteoarthritis involving both hips. PMH includes cervical stenosis, HTN, DDD, L5 - S1 laminectomy Family/Caregiver Present None Restrictions/Precautions General Restrictions/Precautions Falls risk Weight Bearing Restrictions/Precautions RLE;LLE RLE Weight Bearing WBAT LLE Weight Bearing WBAT Hip Precautions Left;Right;Anterior THR Subjective Subjective Patient agreeable to treatment;Nursing agreeable to treatment Patient/Caregiver Personal Goal Getting back to his home gym Subjective Comments Pt supine in bed and agreeable to tx. Observation Medical Interventions IV Behavior Alert;Pleasant mood;Motivated;Cooperative Bed Mobility/Transfers Supine to Sit Supervision/Standby assist Sit to Stand Supervision/Standby assist Stand to Sit Supervision/Standby assist Sit to Supine Supervision/Standby assist Transfer Device Rolling walker gait belt Trials/Comments Pt able to complete all bed mobility/transfers with SBA and increased time. Ambulation Ambulation Device Rolling walker gait belt Ambulation Assistance Supervision/Standby assist Quality of Gait Decreased riya;Wide base of support Step-to gait pattern at times Loss of Balance (# of times) 0 times Distance Ambulated (ft) 80 ft Ambulation Safety Good Gait Comment Pt able to amb in hallway with RW and SBA with decreased riya. Pt able to maintain close proximity of RW without cueing. Balance Static Sitting Good Dynamic Sitting Good Static Standing Good Dynamic Standing Fair Positioning at End of Session Positioning at End of Session Supine Safety Measures Call light within reach;Nurse/aide notified;All needs in reach;Ice pack reapplied Patient/Family Training Patient/Family Training Activity Recommendation;Discharge recommendations;Precautions- weight bearing status;Therapy plan of care and goals Other Objective Information Other Objective Information Notified RN of pt meeting all PT related goals and ok to d/c home with HHPT from PT perspective. Assessment Problem List/Treatment Diagnosis Decreased strength;Decreased activity tolerance;Decreased range ofmotion;Decreased mobility;Decreased safety awareness;Impaired gait;Impaired balance;Pain;Orthopedicrestrictions Assessment Patient has met goals, no further therapy indicated in this setting Therapy Recommendations Home health with family support Patient/Caregiver Agrees With Goals/Plan Yes Plan Treatment Interventions Therapeutic exercise;Gait training;Patient/Caregiver education;Functional therapeutic activities;Bed mobility;Transfer training;Neuromuscular re-education;Balance activities PT Frequency for Treatments Daily to twice a day Treatment Plan Duration 2 weeks Comment Pt ok to d/c home with HHPT and family support as pt has met all PT related goals at this time. If d/c plans fall through on this date, increase goals and continue to treat pt per LUCERO protocol. Re-Eval Due 04/14/22 Goal Review Date 04/03/22 Can be transferred to PT Classification Control Clerk Yes Loren Lynn PTA * Physical Therapy - Loren Lynn PTA - 04/01/2022 9:41 AM EDT Images from the original note were not included. [facility] Patient Room Number: 505/505-1 Patient Identification: Margarita Steve is a 61 yr/o male. 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] Attending Provider: Cholo Dotson MD PT Order (From admission, onward) PT Evaluate and Treat Once Ordering Provider: Cholo Dotson MD Note Type: Treatment PT Treatment - 04/01/22 0941 General Current Hospitalization Summary Patient is a 61-year-old male with history of sleep apnea, hypertension, asthma who underwent bilateral total hip arthroplasty anterior approach secondary to osteoarthritis involving both hips. PMH includes cervical stenosis, HTN, DDD, L5 - S1 laminectomy Family/Caregiver Present Friend Restrictions/Precautions General Restrictions/Precautions Falls risk Weight Bearing Restrictions/Precautions RLE;LLE RLE Weight Bearing WBAT LLE Weight Bearing WBAT Hip Precautions Left;Right;Anterior THR Subjective Subjective Patient agreeable to treatment;Nursing agreeable to treatment Patient/Caregiver Personal Goal Getting back to his home gym Subjective Comments Pt supine in bed and agreeable to tx. Observation Medical Interventions IV Behavior Alert;Pleasant mood;Motivated;Cooperative Bed Mobility/Transfers Supine to Sit Minimal assistance Sit to Stand Contact guard;Minimal assistance Stand to Sit Contact guard Sit to Supine Minimal assistance Transfer Device Rolling walker gait belt Trials/Comments Pt requires min increased time for mobility 2/2 B hip pain. Pt able to move from supine to sit EOB with Jah for BLEs. Pt able to CTS from EOB with CGA/Jah. Pt required Jah for moving BLEs back into bed when returning to supine at end of tx. Ambulation Ambulation Device Rolling walker gait belt Ambulation Assistance Contact guard;With cues Quality of Gait Decreased riya;Wide base of support Loss of Balance (# of times) 0 times Distance Ambulated (ft) 80 ft Ambulation Safety Good Good to fair Gait Comment Reviewed WBAT status on BLEs prior to amb. Pt able to amb in hallway with RW and CGA. Pt required cueing to maintain close proximity of RW toward end of amb when pt was becoming fatigued. Pt took 2 very short standing rest breaks during gait bout. Stairs Rails Bilateral Stairs Device -- gait belt Stairs Assistance Contact guard Safety Good Number of Stairs Climbed 3 Gait Comment Pt amb to navigate ascending/descending three steps with CGA and use of bilateral handrails. Pt with good safety, but took increased time to complete 2/2 pain. Balance Static Sitting Good Dynamic Sitting Fair Static Standing Fair Dynamic Standing Fair Lower Extremity Exercises Lower Extremity Location Right;Left Position Supine;Sitting Type Active;Active assist Lower Extremity Exercise THR exercises Reps 10 Reps Sets 1 Sets Positioning at End of Session Positioning at End of Session Supine Safety Measures Call light within reach;Nurse/aide notified;Family/Caregiver present;All needs in reach;Ice pack reapplied Patient/Family Training Patient/Family Training Activity Recommendation;Discharge recommendations;Energy conservation;Home exercise program;Precautions- weight bearing status;Use of call light Other Objective Information Other Objective Information Requested GRAIN WAFER MACHINE OPERATOR refill polar pack with ice at end of tx. Increased time discussing energy conservation techniques with pt. Assessment Problem List/Treatment Diagnosis Decreased strength;Decreased activity tolerance;Decreased range ofmotion;Decreased mobility;Decreased safety awareness;Impaired gait;Impaired balance;Pain;Orthopedicrestrictions Assessment Will benefit from continued skilled therapy;Progressing towards goals Assessment Comment Pt will benefit from one additional PT treatment session to assess level of assist required for bed mobility/transfers prior to returning home at d/c. Therapy Recommendations Home health with family support Patient/Caregiver Agrees With Goals/Plan Yes Plan Treatment Interventions Therapeutic exercise;Gait training;Patient/Caregiver education;Functional therapeutic activities;Bed mobility;Transfer training;Neuromuscular re-education;Balance activities PT Frequency for Treatments Daily to twice a day Treatment Plan Duration 2 weeks Re-Eval Due 04/14/22 Goal Review Date 04/03/22 Can be transferred to PT Classification Control Clerk Yes Loren Lynn PTA * Physical Therapy - Loren Lynn PTA - 04/01/2022 8:56 AM EDT [facility] Patient Room Number: 505/505-1 Patient Identification: Margarita Steve is a 61 yr/o male. 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] Attending Provider: Cholo Dotson MD PT Order (From admission, onward) PT Evaluate and Treat Once Ordering Provider: Cholo Dotson MD Note Type: Treatment PT Treatment - 04/01/22 0856 General Current Hospitalization Summary Patient is a 61-year-old male with history of sleep apnea, hypertension, asthma who underwent bilateral total hip arthroplasty anterior approach secondary to osteoarthritis involving both hips. PMH includes cervical stenosis, HTN, DDD, L5 - S1 laminectomy Reason Evaluation/Treatment not performed Nursing care Plan Treatment Interventions Therapeutic exercise;Gait training;Patient/Caregiver education;Functional therapeutic activities;Bed mobility;Transfer training;Neuromuscular re-education;Balance activities PT Frequency for Treatments Daily to twice a day Treatment Plan Duration 2 weeks Comment Will attempt pt later this date as time allows. Re-Eval Due 04/14/22 Goal Review Date 04/03/22 Can be transferred to PT Classification Control Clerk Yes Loren Lynn PTA * Physical Therapy - Loren Lynn PTA - 03/31/2022 2:23 PM EDT Images from the original note were not included. [facility] Patient Room Number: 505/505-1 Patient Identification: Margarita Steve is a 61 yr/o male. 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] Attending Provider: Cholo Dotson MD PT Order (From admission, onward) PT Evaluate and Treat Once Ordering Provider: Cholo Dotson MD Note Type: Treatment PT Treatment - 03/31/22 1423 General Current Hospitalization Summary Patient is a 61-year-old male with history of sleep apnea, hypertension, asthma who underwent bilateral total hip arthroplasty anterior approach secondary to osteoarthritis involving both hips. PMH includes cervical stenosis, HTN, DDD, L5 - S1 laminectomy Family/Caregiver Present None Restrictions/Precautions General Restrictions/Precautions Falls risk Weight Bearing Restrictions/Precautions RLE;LLE RLE Weight Bearing WBAT LLE Weight Bearing WBAT Hip Precautions Left;Right;Anterior THR Subjective Subjective Patient agreeable to treatment;Nursing agreeable to treatment Patient/Caregiver Personal Goal Getting back to his home gym Subjective Comments Pt supine in bed and agreeable to tx. Pt reports B hips feeling sore. Pt motivated to participate. Observation Medical Interventions IV Behavior Alert;Pleasant mood;Motivated;Cooperative Bed Mobility/Transfers Supine to Sit Minimal assistance Sit to Stand Minimal assistance;Moderate assistance Stand to Sit Minimal assistance Sit to Supine Moderate assistance for BLEs only Transfer Device Rolling walker gait belt Trials/Comments Pt required increased time for all mobility 2/2 pain. Pt required Jah for BLEs andtorso for supine to sit. Pt able to CTS from EOB with Jah on 1st stand, ModA on 2nd stand later onduring tx session. Pt required ModA for BLEs only when returning to supine. Ambulation Ambulation Device Rolling walker gait belt Ambulation Assistance Contact guard;With cues Quality of Gait Decreased riya;Wide base of support Loss of Balance (# of times) 0 times Distance Ambulated (ft) 52 ft Ambulation Safety Fair Gait Comment Pt educated on WBAT on BLEs prior to amb. Pt able to amb in hallway with CGA and cueing for upright posture and to maintain close proximity of RW. Balance Static Sitting Good Dynamic Sitting Fair Static Standing Fair Dynamic Standing Fair Lower Extremity Exercises Lower Extremity Location Right;Left Position Supine Type Active;Active assist Lower Extremity Exercise THR exercises Reps 10 Reps Sets 1 Sets Positioning at End of Session Positioning at End of Session Supine Safety Measures Call light within reach;All needs in reach;Ice pack reapplied Patient/Family Training Patient/Family Training Activity Recommendation;Discharge recommendations;Home exercise program;Precautions- weight bearing status;Use of call light;Precautions- hip replacement Other Objective Information Other Objective Information RW and bedside commode were brought to pt's room by HCW during tx session Assessment Problem List/Treatment Diagnosis Decreased strength;Decreased activity tolerance;Decreased range ofmotion;Decreased mobility;Decreased safety awareness;Impaired gait;Impaired balance;Pain;Orthopedicrestrictions Assessment Will benefit from continued skilled therapy;Progressing towards goals Therapy Recommendations Home health with family support Patient/Caregiver Agrees With Goals/Plan Yes Plan Treatment Interventions Therapeutic exercise;Gait training;Patient/Caregiver education;Functional therapeutic activities;Bed mobility;Transfer training;Neuromuscular re-education;Balance activities PT Frequency for Treatments Daily to twice a day Treatment Plan Duration 2 weeks Re-Eval Due 04/14/22 Goal Review Date 04/03/22 Can be transferred to PT Classification Control Clerk Yes Loren Lynn PTA * Occupational Therapy - Frida Fernandes, OT - 03/31/2022 1:02 PM EDT Images from the original note were not included. [facility] Patient Room Number: 505/505-1 Patient Identification: Margarita Steve is a 61 yr/o male. 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] Attending Provider: Cholo Dotson MD OT Order (From admission, onward) OT Eval and Treat Once Ordering Provider: Mary Ann Cristina APRN Note Type: Evaluation OT Evaluation - 03/31/22 1301 General Current Hospitalization Summary Patient is a 61-year-old male with history of sleep apnea, hypertension, asthma who underwent bilateral total hip arthroplasty anterior approach secondary to osteoarthritis involving both hips. PMH includes cervical stenosis, HTN, DDD, L5 - S1 laminectomy Family/Caregiver Present None Restrictions/Precautions General Restrictions/Precautions Falls risk Weight Bearing Restrictions/Precautions RLE;LLE RLE Weight Bearing WBAT LLE Weight Bearing WBAT Hip Precautions Left;Right;Anterior THR Home Living Type of Home House Home Layout Two level;Able to live on main level with bedroom/bathroom;Performs ADLs on one level;Stairs to enter with rails Bathroom Layout Walk in shower Durable Medical Equipment Used Prior to Admission None Used Prior Function Level of [place] Independent with ADLs;Independent with IADLs;Independent with bed mobility/transfers;Independent with ambulation in home;Independent with community mobility Bathing Technique Stands to shower Lives With Alone friend will assist for 1 week 11/04 Driving Yes 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 Patient eager to mobilize Observation Medical Interventions IV Behavior Alert;Pleasant mood;Motivated;Cooperative Cognition Overall Cognitive Status WFL Level of Consciousness Fully conscious - Awake, alert and oriented to time, place, person and situation. Comprehends spoken and written word and able to express ideas verbally or in writing. Orientation Level Oriented X 4 Strength Strength -- BUE's 4/5 ADL Feeding Set up Feeding Position Edge of bed Grooming Setup Grooming Position Standing at sink Lower Body Dressing Minimal assistance;With adaptive equipment;Needs extended time Dressing Position - LB Dressing Edge of bed ADL Comments Patient instructed in AE (hip kit) seated edge of bed. Patient able to don socks with use of sock aide. Patient ordering hip kit on [employer] for use at home. Patient instructed in use of 3:1 and tub transfer bench/shower chair. Patient able to stand sinkside with CGA/SBA for oral hygiene~2-5 mins. Bed Mobility/Transfers Supine to Sit Minimal assistance Sit to Supine Minimal assistance Sit to Stand Contact guard Stand to Sit Contact guard Functional Mobility Contact guard Transfer Device Rolling walker gait belt Trials/Comments Patient required increased time to come supine to sit due to bilateral hip replacements. Patient completed sit to stand and functional mobility to/from bathroom with CGA using rollingwalker. Patient instructed in proper sitting positions inculding chairs with arm rests. Toilet Transfers Toilet Transfer Technique Ambulating Toilet Transfer Contact guard Toilet Transfer Equipment Raised toilet seat Balance Static Sitting Good Dynamic Sitting Fair Static Standing Fair Dynamic Standing Fair Positioning at End of Session Positioning at End of Session Supine Safety Measures Call light within reach;Nurse/aide notified;All needs in reach;Ice pack reapplied [facility] Daily Activity Putting on / taking off LE clothing 3 Bathing (washing, rinsing, drying) 3 Toileting (toilet, bedpan, or urinal) 3 Putting on / taking off UE clothing 3 Taking care of personal grooming 3 Eating meals 3 TOTAL - [facility] Daily Activity 18 [facility] Total Difference 0 Patient/Family Training Patient/Family Training Activity Recommendation;Compensatory techniques;Discharge recommendations;Falls prevention;Home safety modifications;Precautions- hip replacement;Precautions- weight bearing st atus;Positioning;Therapy plan of care and goals;Use of call light;Use of DME/adaptive equipment Assessment Problem List/Treatment Diagnosis Decreased endurance;Decreased functional mobility;Impaired IADLs;Impaired balance;Impaired ADL status;Pain Assessment Other (Comment) skilled OT services are warranted Assessment Comment Patient with recent decline in functional independence secondary to bilateral hip replacements. Patient with impairments in ADL/IADL I, functional mobility/transfers, balance, and standing tolerance. Patient will benefit from skilled OT services in this setting. Patient will benefit from Home Health services at discharge. Patient/Caregiver Agrees With Goals/Plan Yes Therapy Recommendations Home health with family support OT DME to be ordered at discharge Bedside commode;Other (Comment) hip kit Plan Treatment Interventions ADL retraining;Functional transfer training;Patient/Family training;Compensatory technique education;Endurance training;Equipment eval/education;Functional therapeutic activity OT TX Frequency 1-3x/wk Duration 2 weeks Re-Eval Due 04/14/22 Evaluation/Treatment Complete Yes Goal Review Date 04/03/22 Can be transferred to OT Classification Control Clerk N/A Frida Fernandes OT * Case Management - Temo Harper RN - 03/31/2022 11:48 AM EDT Care Management Initial Assessment Note Patient Name: Margarita Steve : 1960 Date: 03/31/2022 Time: 11:48 AM Discharge Plan: Home with HH Source of Information: Self;Medical Record Spoke with patient, CM role explained, demographics and PCP verified. Patient lives at home alone and plans to return home at discharge. HH set up with [facility] which is patients prefference. Medical equipment ordered from [facility] per patients need. CM will continue to assist with any discharge needs. Patient is in agreement with plan. VANESA Hx: none HH Hx: non Discharge Barriers: Medical Stability Admission from: Home/Residential, no current nsg services Living Arrangement: House;Lives alone Support Systems: Family members;Children;Spouse/significant other;Friends/neighbors Does the patient have a Smart Phone, tablet or a computer with a camera and microphone?: Yes Do you currently see a primary care physician?: Yes PCP: Keanu Brooks, DO Do you currently have a pharmacy?: Yes Pharmacy: [id number] - [place], [place] - [address] [facility] [place] Who typically provides your care at home and what are their ages?: Self How much supervision is your caregiver able to provide?: As much as needed Do you feel that the above care provider can continue to care for you after discharge?: Yes Home Services Prior to Admission: None Durable Medical Equipment Prior to Admission: Walker;3in1 Commode Resp Therapy Prior to Admission: None Unplanned Readmission Risk Score: Predictive Model Details No score data available for Risk of Unplanned Readmission Pt Been in Any Inpt Facility in Past 30 Days?: No Discussed Meds to Bed with patient?: Yes Would the patient like to have their discharge medications delivered to their bedside from our [facility] upon discharge? If Yes, add appropriate [facility] as preferred pharmacy using Review BOX CUTTER Meds.: Yes Anticipated Mode of Transportation at Discharge - For Adult Patients Only : Private Transportation Morning (6AM-11AM) Transport Contact Info: friend Afternoon/Evening (11AM-9PM) Transport Contact Info: friend Signed: Temo Muhammad RN [phone] * Physical Therapy - Concha Sharma, PT - 03/31/2022 9:31 AM EDT Images from the original note were not included. [facility] Rehabilitation Services Patient Room Number: 505/505-1 Patient Identification: Margarita Steve is a 61 yr/o male. 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] Attending Provider: Cholo Dotson MD PT Order (From admission, onward) PT Evaluate and Treat Once Ordering Provider: Cholo Dotson MD Note Type: Evaluation PT Evaluation - 03/31/22 1010 General Current Hospitalization Summary Patient is a 61-year-old male with history of sleep apnea, hypertension, asthma who underwent bilateral total hip arthroplasty anterior approach secondary to osteoarthritis involving both hips. PMH includes cervical stenosis, HTN, DDD, L5 - S1 laminectomy Family/Caregiver Present None Restrictions/Precautions General Restrictions/Precautions Falls risk Weight Bearing Restrictions/Precautions RLE;LLE RLE Weight Bearing WBAT LLE Weight Bearing WBAT Hip Precautions Left;Right;Anterior THR Home Living Type of Home House Home Layout Two level;Able to live on main level with bedroom/bathroom;Performs ADLs on one level;Stairs to enter with rails 2 YAMIL Bathroom Layout Walk in shower Durable Medical Equipment Used Prior to Admission None Used Prior Function Level of [place] Independent with ADLs;Independent with bed mobility/transfers;Independent with ambulation;Independent with community mobility Lives With Alone Driving Yes 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 Comprehends spoken and written word and able to express ideas verbally or in writing. Orientation Level Oriented X 4 ROM Assessment ROM Assessments -- BLE limited by pain and restrictions Strength Strength -- BLE 3/5 Bed Mobility/Transfers Supine to Sit Minimal assistance;With cues;With side rail/trapeze Sit to Stand Contact guard Stand to Sit Contact guard Sit to Supine Minimal assistance Transfer Device Rolling walker gait belt Trials/Comments Pt requires mod increased time for completion of transfers. Pt needed cues for technique. Educated with appropriate sitting surfaces at home. Ambulation Ambulation Device Rolling walker gait belt Ambulation Assistance Contact guard;With cues Quality of Gait Decreased riya;Wide base of support Loss of Balance (# of times) 0 times Distance Ambulated (ft) 50 ft Ambulation Safety Fair Gait Comment Pt able to ambulate in room with min instability and no LOB Balance Static Sitting Good Dynamic Sitting Fair Static Standing Fair Dynamic Standing Fair Positioning at End of Session Positioning at End of Session Supine Safety Measures Call light within reach;Nurse/aide notified;All needs in reach;Ice pack reapplied [facility] Basic Mobility Turning from supine to sidelie 3 Moving from supine to sitting on edge of bed 3 Moving to and from a bed to a chair 3 Standing from chair 3 Walking in hospital room 3 Climbing 3-5 steps with a railing 1 TOTAL - [facility] Basic Mobility 16 [facility] Total Difference 0 Patient/Family Training Patient/Family Training Activity Recommendation;Compensatory techniques;Discharge recommendations;Falls prevention;Home safety modifications;Precautions- hip replacement;Precautions- weight bearing st atus;Therapy plan of care and goals;Use of call light;Use of DME/adaptive equipment Assessment Problem List/Treatment Diagnosis Decreased strength;Decreased activity tolerance;Decreased range ofmotion;Decreased mobility;Decreased safety awareness;Impaired gait;Impaired balance;Pain;Orthopedicrestrictions Assessment Will benefit from continued skilled therapy Assessment Comment Good compliance with PT. Pt will benefit from continued PT for impaired strength, transfers, ambulation, and balance. Pt will benefit from HH at discharge Prognosis for Therapy Good Treatment Indicated For This Setting Yes Patient/Caregiver Agrees With Goals/Plan Yes Therapy Recommendations Home health OT DME to be ordered at discharge Bedside commode;Other (Comment) Plan Treatment Interventions Therapeutic exercise;Gait training;Patient/Caregiver education;Functional therapeutic activities;Bed mobility;Transfer training;Neuromuscular re-education;Balance activities PT Frequency for Treatments Daily to twice a day Treatment Plan Duration 2 weeks Re-Eval Due 04/14/22 Goal Review Date 04/03/22 Can be transferred to PT Classification Control Clerk Yes Concha Sharma, PT * Nurse - Renata Watt RN - 03/30/2022 7:09 PM EDT Dangled feet x 5 minutes before stating feeling a little pain. Assisted back to bed * Operative Report - Cholo Dotson MD - 03/30/2022 6:03 PM EDT Operative Report Location: [facility] MAIN OR Patient: Margarita Steve Age: 61 yr/o : 1960 Sex: male Medical Record: [id number] Date of Operation/Procedure: 03/30/2022 Event Time Procedure Start 105 Pre-operative Diagnosis Code: Pre-Op Diagnosis Codes: * Arthritis of both hips [M16.0] Pre-operative Diagnosis Free Text: Arthritis of both hips [M16.0] Post-operative Diagnosis: No change from Preoperative Diagnosis Surgeon(s) and Role: * Cholo Dotson MD - Primary LB De La [place]ega, assist Procedure(s) Performed: Procedure(s) and Anesthesia Type: Right TOTAL HIP ARTHROPLASTY ANTERIOR APPROACH (PLANNED OBSERVATION) CPT 86543 - General Indications for Operation/Procedure: Patient is a 61-year-old male. This is the second side dictation of a bilateral simultaneous procedure. The left side was dictated separately and was done first. Complications: None Description of procedure: Patient had the left hip closed and all the drapes were removed. He remained under general anesthesia. A second gram of TXA was given just prior to starting this right side.The right hip was then sterilely prepped and draped in usual fashion for anterior approach hip surgery. A timeout was again done and confirmed that it was the right hip that we were doing. An incision was made just lateral to the anterior superior iliac spine extending distally. Dissection was carried through skin and subcutaneous tissue. The tensor fascia was identified and split the midportion.The muscle was retracted bluntly laterally and the deep fascia was split and the crossing vessels were coagulated. Retractors were placed above and below the femoral neck and an L- shaped capsular incision was made. He was noted to have mild effusion of clear fluid and had osteophytes present on thefemoral neck. A double neck cut was made and the intervening fragment removed. The head was removedwith a corkscrew and acetabular retractor was placed and the labrum was removed circumferentially. T he acetabulum was then reamed under fluoroscopy up to a size 52 which there was excellent bone encountered. A 52 mm R3 [employer] cup was then impacted and noted to fit tightly. A trial neutral liner was placed for the 32 head. The hip was extended and externally rotated. The trochanter waslateralized and broaches were used up to size 2 which got excellent fit and fill. The lateral offset trial neck was done with the +0 ball. This was a little too short. The +4 ball actually gave better leg lengths and offset. A stability test was done and the hip was very stable and would not dislocate anteriorly or posteriorly. The trials were removed and the real neutral liner for the 32 head and the 52 cup was impacted after cleansing and drying the cup and noted to fit tightly. The patient then had the real size 2 lateral offset polar stem impacted and this was noted to seat down about 2 mm deeper than the broach. For that reason I used a +8 trial and this gave excellent leg lengths and good offset and was felt to be the correct length of the head. The real +8 x 32 Oxinium head was impacted after cleansing and drying the neck and noted to fit tightly. Hip was reduced under direct vision. Soft tissue tension was appropriate and this was noted to be stable. Thorough irrigation was done with Irrisept for 1 minute. This was irrigated out with copious amounts of saline and the patientthen had the deep fascia closed with a running 0 Monocryl suture and a periarticular block was donewith a mixture of ropivacaine and epinephrine. The patient then had the subcu irrigated and closed with 2-0 Vicryl and skin was closed with a subcuticular suture followed by sterile dressing. He returned to the recovery room in stable condition. lead assistant manager was responsible for critical assistanc e during all portions of the surgical case including preparation and draping, retraction, instrumentation, and wound closure. Attestation Statement: As the primary surgeon, I was present for the critical parts of the procedure and either I, or another qualified surgeon, was immediately available during the non-critical portions Type of Anesthesia: General Specimens: N/A Grafts/Implants: Implant Name Type Inv. Item Serial No. [place] Operator Lot No. LRB No. Used Action HIP SHELL ACETAB 52 [id number] - [id number] Hips HIP SHELL ACETAB 52 [id number] [employer] [id number] Left 1 Implanted HIP LINER JEANINE SZ 32 [id number] - [id number] Hips HIP LINER JEANINE SZ 32 [id number] [employer] [id number] Left 1 Implanted HIP STEM 2 LAT [id number] - [id number] OTHER - IMPLANTS - ORTHOPAEDIC HIP STEM 2 LAT [id number] [employer] [id number] Left 1 Implanted LOOP WIRE MALINDA [id number] - [id number] Cable LOOP WIRE MALINDA [id number] [employer] TRAUMA Left 1 Implanted HIP FEM HEAD TAPER 32 [id number] - [id number] Hips HIP FEM HEAD TAPER 32 [id number] [employer] [id number] Left 1 Implanted HIP SHELL ACETAB 52 [id number] - [id number] Hips HIP SHELL ACETAB 52 [id number] [employer] [id number] Right 1 Implanted HIP LINER ACETAB 52 [id number] - [id number] Hips HIP LINER ACETAB 52 [id number] [employer] [id number] Right 1 Implanted HIP STEM SZ2 LAT [id number] - [id number] OTHER - IMPLANTS - ORTHOPAEDIC HIP STEM SZ2 LAT [id number] [employer] [id number] Right 1 Implanted HIP FEM HEAD TAPER 32 [id number] - [id number] Hips HIP FEM HEAD TAPER 32 [id number] [employer] [id number] Right 1 Implanted Estimated Blood Loss: 1000 for the entire case combining both sides Fluids/Drains: None Chloo Dotson MD 03/30/2022 6:03 PM * Nurse - Rosette Brennan RN - 03/30/2022 4:30 PM EDT Patient transported to room 505. Bedside report given to RENATA WATT RN with all questions answered. Patient denies nausea or eye irritation. Pain level is none and states tolerable. Reviewed allergies, history, surgical procedure, meds given, vs trends, and I&O. Surgical sites are evaluated with receiving RN and are note to be clean,dry and intact. Neurovascular checks are done at bedside.MD orders are Core Measures sheet is reviewed and handed off. Patient and friend are educated at bedside. Call light with reach. Vitals: t=97.9, p=97, rr=15, sat=97%, fi=190/81. SCIP protocol, antibiotic due, pt's last void And last bladder scan discussed with RN. * Operative Report - Cholo Dotson MD - 03/30/2022 1:54 PM EDT Operative Report Location: [facility] MAIN OR Patient: Margarita Steve Age: 61 yr/o : 1960 Sex: male Medical Record: [id number] Date of Operation/Procedure: 03/30/2022 Event Time Procedure Start 1055 Pre-operative Diagnosis Code: Pre-Op Diagnosis Codes: * Arthritis of both hips [M16.0] Pre-operative Diagnosis Free Text: Arthritis of both hips [M16.0] Post-operative Diagnosis: No change from Preoperative Diagnosis Surgeon(s) and Role: * Cholo Dotson MD - [place], [facility] Procedure(s) Performed: Procedure(s) and Anesthesia Type: Left TOTAL HIP ARTHROPLASTY ANTERIOR APPROACH (PLANNED OBSERVATION) CPT 68965 - General Indications for Operation/Procedure: Patient is a 61-year-old male with a history of bilateral avascular necrosis of the femoral heads. 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 He comes in for treatment after havi ng failed with medications and exercise. He is here for bilateral total hip replacements and these will be dictated separately. They were done at the same anesthesia setting but there was a sterile prep and drape in between each case. Complications: Small crack in the neck on the left hip requiring a cerclage wire Description of procedure: Patient was placed in the supine position on the stretcher. General anesthesia was induced without complications. He received prophylactic antibiotics and TXA. Boots were placed for the [place] table and he was moved over to the [place] table brought gently down against the padded post. The legs were secured in the leg holders and the arms are carefully abducted and placed on foam armrest with careful support. The left hip was sterilely prepped and draped in usual fashion for anterior approach hip surgery. A timeout was done confirming the proper patient, procedure, and site. Once this was done, the patient had an incision made just lateral to the anterior superior iliacspine extending distally. Dissection was carried through skin and subcutaneous tissue. The tensor fascia was identified and split in the midportion. The tensor muscle was retracted laterally. The crossing vessels were coagulated and retractors were placed above and below the femoral neck. An L-shaped capsular incision was made and a double neck cut was done. The intervening fragment of bone was re moved. The head was removed with a corkscrew. Acetabular retractor was placed and the labrum was removed circumferentially. Hemispherical reamers were used under fluoroscopy up to size 52 at which satisfactory sizing was obtained. I needed to medialized to the medial wall for the 52 to be stable onthe left. Once this was done the cup was solid and a trial neutral liner was placed. The hip was extended and externally rotated. The trochanter was lateralized and broaches were used up to size 2. The trial reduction was done with a 0 ball and this was too short. I went to a +4 ball and this gave excellent leg lengths but was not lateralized enough. A +4 lateral offset neutral liner was placed and he was taken through a stability test and noted to be stable. These were felt to be the correct sizes. The real lateral offset liner was placed in the cup and the size 2 lateral stem was impacted and noted to seat down a little bit lower than the original. During the final seating there was notedto be a small crack in the medial neck. This did not extend even quite to the lesser trochanter butwas felt to be significant enough that I placed a cerclage wire which was a 16-gauge double wire which was twisted down in place with care to stay just above the lesser trochanter and below the edge of the femoral neck. This was tight and the extra was cut off. The real +432 mm Oxinium head was placed and the hip was reduced under direct vision and soft tissue tension was satisfactory. The C arm was used consistently throughout the case to make sure that the implants were in the correct position and the leg lengths were appropriate. At this point the wound was thoroughly irrigated with Irrisept for 1 minute. This was irrigated out with copious amounts of saline and the deep fascia was closed with a running 0 Monocryl suture and a mixture of ropivacaine and epinephrine were placed in the hip joint area for periarticular block. The subcu was irrigated and closed with 2-0 Vicryl and the skin was closed with a subcuticular suture. A sterile bandage was applied the drapes were removed and attention was directed to the right side which will be dictated separately. Type of Anesthesia: General Specimens: N/A Grafts/Implants: Implant Name Type Inv. Item Serial No. [place] Operator Lot No. LRB No. Used Action HIP SHELL ACETAB 52 [id number] - [id number] Hips HIP SHELL ACETAB 52 [id number] [employer] [id number] Left 1 Implanted HIP LINER JEANINE 32 [id number] - [id number] Hips HIP LINER JEANINE 32 [id number] [employer] [id number] Left 1 Implanted HIP STEM 2 LAT [id number] - [id number] OTHER - IMPLANTS - ORTHOPAEDIC HIP STEM 2 LAT [id number] [employer] [id number] Left 1 Implanted LOOP WIRE MALINDA [id number] - [id number] Cable LOOP WIRE MALINDA [id number] [employer] Left 1 Implanted HIP FEM HEAD TAPER 32 [id number] - [id number] Hips HIP FEM HEAD TAPER 32 [id number] [employer] [id number] Left 1 Implanted HIP SHELL ACETAB 52 [id number] - [id number] Hips HIP SHELL ACETAB 52 [id number] [employer] [id number] Right 1 Implanted HIP LINER ACETAB 52 [id number] - [id number] Hips HIP LINER ACETAB 52 [id number] [employer] [id number] Right 1 Implanted HIP STEM SZ2 LAT [id number] - [id number] OTHER - IMPLANTS - ORTHOPAEDIC HIP STEM SZ2 LAT [id number] [employer] [id number] Right 1 Implanted HIP FEM HEAD TAPER 32 [id number] - [id number] Hips HIP FEM HEAD TAPER 32 [id number] [employer] [id number] Right 1 Implanted Estimated Blood Loss: 1000 for the entire procedure both sides Fluids/Drains: None Cholo Dotson MD 03/30/2022 1:54 PM * Case Management - Lisa Schaeffer - 03/30/2022 7:43 AM EDT ORTHO REFERRAL PREFERENCE Home Health =[facility] Lisa Schaeffer Electric Melt Operator Associate [phone] M-F 7:00 AM-3:30PM documented in this encounter Plan of Treatment Upcoming Encounters Date Type Department Care Team (Late st Contact Info) Description 01/24/2025 1:40 PM EDT Office Visit [facility] - [address] [address] Damien Cárdenas, TANG [address] [place] [address] Scheduled Referrals Name Type Priority Associated Diagnoses Orde r Schedule Follow up appointment to see me Outpatient Referral Routine Status post total replacement of both hips 03/30/22 Ordered: 04/01/2022 documented as of this encounter Procedures Procedure Name Priority Date/Time Associated Diagnosis Comments HB CBC/PLT/AUTO DIFF Routine 04/01/2022 5:56 AM EDT HB CBC/PLT/AUTO DIFF Routine 03/31/2022 3:22 AM EDT HB BMP W TOTAL CALCIUM Routine 03/31/2022 3:22 AM EDT XR PELVIS ONE OR TWO VIEWS STAT 03/30/2022 3:24 PM EDT FL C-ARM GREATER THAN 1 HOUR Routine 03/30/2022 1:42 PM EDT XR HIP 1 VW RT Routine 03/30/2022 1:42 PM EDT XR HIP 1 VW LT Routine 03/30/2022 12:35 PM EDT HB ANTIBODY SCREEN GEL STAT 03/30/2022 11:29 AM EDT TOTAL HIP ARTHROPLASTY ANTERIOR APPROACH (PLANNED OBSERVATION) 03/30/2022 10:29 AM EDT Arthritis of both hips Case Notes ADMISSION STATUS: 23 HR OBS Special Needs ADMISSION STATUS: 23 HR OBS , VACCINATED EAGLE &NEPHEW (LAURA MAK) SLEEP APNEA WILL BRING C PAP, GLUCOSE-GLUCOMETER Routine 03/30/2022 8: 49 AM EDT documented in this encounter Results * (ABNORMAL) CBC w/Diff (04/01/2022 5:56 AM EDT) White Blood Count 10.33 4.5 - 11.0 10*3/uL 04/01/2022 6:[address] [facility] Red Blood Count 3.60(L) 4.5 - 5.9 10*6/uL 04/01/2022 6:[address] Hemoglobin 12.1(L) 13.5 - 17.5 g/dL 04/01/2022 6:[address] Hematocrit 35.8(L) 41.0 - 53.0 % 04/01/2022 6:36 AM [facility] Mean Corpuscular Volume 99.4 80.0 - 100.0 fL 04/01/2022 6:36 AM [facility] Mean Corpuscular Hemoglobin 33.6 26.0 - 34.0 pg 04/01/2022 6:36 AM [facility] Mean Corpuscular HGB Conc 33.8 31.0 - 37.0 g/dL 04/01/2022 6:36 AM [facility] Red Cell Distribution Width-CV 13.5 12.0 - 16.8 % 04/01/2022 6:36 AM [facility] Platelet Count 136(L) 140 - 440 10*3/uL 04/01/2022 6:36 AM [facility] Mean Platelet Volume 10.3 8.4 - 12.4 fL 04/01/2022 6:36 AM [facility] Diff Type CBC w/Manual Differential (arb'U) 04/01/2022 8:05 AM [facility] Neutrophils % 82.0(H) 45 - 80 % 04/01/2022 8:05 AM [facility] Band Neutrophil% 1.0 0 - 5 % 04/01/2022 8:05 AM [facility] Lymphocyte % 11.0(L) 15 - 50 % 04/01/2022 8:05 AM [facility] Eosinophil% 1.0 0 - 7 % 04/01/2022 8:05 AM [facility] Myeloctye % 5.0(H) 0 % 04/01/2022 8:05 AM [facility] Nucleated RBC % 0 0 /100(WBC) 04/01/20 8:05 AM [facility] Absolute Neutrophil Count 8.57 2.0 - 8.8 /uL 04/01/2022 8:05 AM [facility] Neutrophil Abs 8.47 2.0 - 8.8 10*3/uL 04/01/2022 8:05 AM [facility] Bands-Absolute 0.10 0 - 0.6 10*3/uL 04/01/2022 8:05 AM [facility] Lymphocyte-Abso lute 1.14 0.7 - 5.5 10*3/uL 04/01/2022 8:[address] [facility] EOS-Absolute 0.10 0.0 - 0.8 10*3/uL 04/01/2022 8:05 AM [facility] Myelo-Absolute 0.52(H) 0 10*3/uL 04/01/2022 8:05 AM [facility] RBC Morphology Comment Normal Normal 04/01/2022 8:05 AM [facility] Platelet Estimate DECREASED(A) Adequate (arb'U) 04/01/2022 8:05 AM [facility] Whole Blood BLOOD SPECIMEN FROM PATIENT / Unknown 04/01/2022 5:56 AM EDT 04/01/2022 6:20 AM EDT us Cholo Dotson MD LAB BLOOD [place] [address] [address] * (ABNORMAL) CBC w/Diff (03/31/2022 3:22 AM EDT) White Blood Count 12.75(H) 4.5 - 11.0 10*3/uL 03/31/2022 3:39 AM [facility] Red Blood Count 3.58(L) 4.5 - 5.9 10*6/uL 03/31/2022 3:39 AM [facility] Hemoglobin 12.1(L) 13.5 - 17.5 g/dL 03/31/2022 3:39 AM [facility] Hematocrit 35.9(L) 41.0 - 53.0 % 03/31/2022 3:39 AM [facility] Mean Corpuscular Volume 100.3(H) 80.0 - 100.0 fL 03/31/2022 3:39 AM [facility] Mean Corpuscular Hemoglobin 33.8 26.0 - 34.0 pg 03/31/2022 3:39 AM [facility] Mean Corpuscular HGB Conc 33.7 31.0 - 37.0 g/dL 03/31/2022 3:39 AM [facility] Red Cell Distribution Width-CV 13.3 12.0 - 16.8 % 03/31/2022 3:39 AM [facility] Platelet Count 149 140 - 440 10*3/uL 03/31/2022 3:39 AM [facility] Mean Platelet Volume 10.1 8.4 - 12.4 fL 03/31/2022 3:39 AM [facility] Diff Type Hospital CBC w/AutoDiff (arb'U) 03/31/2022 3:39 AM [facility] Neutrophils % 82.9(H) 45 - 80 % 03/31/2022 3:39 AM [facility] Lymphocyte % 8.2(L) 15 - 50 % 03/31/2022 3:39 AM [facility] Monocyte % 8.2 0 - 15 % 03/31/2022 3:39 AM [facility] Eosinophil% 0.2 0 - 7 % 03/31/2022 3:39 AM [facility] BASO% 0.1 0 - 2 % 03/31/2022 3:39 AM [facility] Immature Granulocyte% 0.4 0.0 - 1.0 % 03/31/2022 3:39 AM [facility] Nucleated RBC % 0 0 /100(WBC) 03/31/2022 3:39 AM [facility] Neutrophil Abs 10.58(H) 2.0 - 8.8 10*3/uL 03/31/2022 3:39 AM [facility] Lymphocyte-Absol uzma 1.05 0.7 - 5.5 10*3/uL 03/31/2022 3:39 AM [facility] Monocyte Absolute 1.04 0.0 - 1.7 10*3/uL 03/31/2022 3:39 AM [facility] EOS-Absolute 0.02 0.0 - 0.8 10*3/uL 03/31/2022 3:39 AM [facility] Basophil Abs 0.01 0.0 - 0.2 10*3/uL 03/31/2022 3:39 AM [facility] Immature Granulocyte Abs 0.05 0.00 - 0.10 10*3/uL 03/31/2022 3:[address] [facility] Blood specimen from patient (specimen) BLOOD SPECIMEN FROM PATIENT / Unknown 03/31/2022 3:22 AM EDT 03/31/2022 3:28 AM EDT us Cholo Dotson MD LAB BLOOD ORDERABLES Final Result [facility] [address] [place] [id number] [address] * (ABNORMAL) Basic Metabolic Panel (BMP) (03/31/2022 3:22 AM EDT) Sodium 136 136 - 145 mmol/L 03/31/2022 3:51 AM [facility] Comment: (note) Excess protein and/or lipids can falsely decrease sodium levels (pseudo hyponatremia). Potassium 4.1 3.5 - 5.1 mmol/L 03/31/2022 3:51 AM [facility] Chloride 103 98 - 107 mmol/L 03/31/2022 3:51 AM [facility] Comment: (note) Falsely elevated chloride levels can be seen in patients taking medications which contain bromide. Carbon Dioxide 24 22 - 29 mmol/L 03/31/2022 3:51 AM [facility] Anion Gap 9 5 - 13 (arb'U) 03/31/2022 3:51 AM [facility] Comment: (note) Calculation- Na - (Cl + CO2) Glucose 175(H) 71 - 139 mg/dL 03/31/2022 3:51 AM [facility] Comment: (note) Reference range based on inpatient hypo/hyperglycemic treatment levels. A random glucose =/>200 is concerning for poor control. Blood Urea Nitrogen (BUN) 21 8 - 26 mg/dL 03/31/2022 3:51 AM [facility] Creatinine-Bloo d 1.24(H) 0.73 - 1.18 mg/dL 03/31/2022 3:51 AM [facility] BUN/Creatinine Ratio 16.9 RATIO 03/31/2022 3:[address] [facility] Estimated GFR 59(L) >60 /1.73 m2 03/31/2022 3:[address] [facility] Comment: (note) Results do not take into account body mass. ??Valid for patients 18 to 70 years of age. Estimated GFR if -Melany n >60 >60 /1.73 m2 03/31/2022 3:[address] [facility] Comment: (note) Results do not take into account body mass. ??Valid for patients 18 to 70 years of age. Calcium 8.7 8.4 - 10.2 mg/dL 03/31/2022 3:[address] Plasma specimen (specimen) BLOOD SPECIMEN FROM PATIENT / Unknown 03/31/2022 3:22 AM EDT 03/31/2022 3:28 AM EDT us Cholo Dotson MD LAB BLOOD ORDERABLES Final Result Performing Organization Address City/State/[facility] [place] [address] [address] * XR Pelvis One Or Two Views (03/30/2022 3:24 PM EDT) Anatomical Region Laterality Modality Pelvis [facility] Radiographic Imaging 03/30/2022 4:37 PM EDT Narrative 03/30/2022 4:42 PM EDT REVIEWING YOUR TEST RESULTS IN [facility] IS NOT A SUBSTITUTE FOR DISCUSSING THOSE RESULTS WITH YOUR HEALTH CARE PROVIDER. PLEASE CONTACT YOUR PROVIDER VIA [facility] TO DISCUSS ANY QUESTIONS OR CONCERNS YOU MAY HAVE REGARDING THESE TEST RESULTS. RADIOLOGY REPORT FACILITY: ??[facility] UNIT/AGE/GENDER: M.PERIOP ??OP ?AGE:61 Y ?SEX:M PATIENT NAME/: ??, MARGARITA, D ?1960 UNIT NUMBER: ??[id number] ACCESSION NUMBER: ??[id number] EXAMINATION: Pelvis. DATE: 03/30/2022 at 1524. COMPARISON: None. CLINICAL HISTORY: Avascular necrosis of both femoral heads. Underwent bilateral hip arthroplasty today. Initial encounter. FINDINGS: An AP view of the pelvis shows bipolar hip arthroplasty devices bilaterally, with a cerclage wire noted on the left. There is near-anatomic alignment and positioning. Overall bone mineralization is within normal limits, and there are no acute fractures. Postoperative changes of previous L5-S1 fusion are incidentally identified. Multiple calcified phleboliths are evident. IMPRESSION: Immediately postop bilateral hip arthroplasty. Dictated by: Dayo Jordan M.D. Images and Report reviewed and interpreted by: Dayo Jordan M.D. <PS><Electronically signed by: Dayo Jordan M.D.> 03/30/2022 1641 1637 1637 Procedure Note Dayo Jordan MD - 03/30/2022 REVIEWING YOUR TEST RESULTS IN [facility] IS NOT A SUBSTITUTE FORDISCUSSING THOSE RESULTS WITH YOUR HEALTH CARE PROVIDER. PLEASE CONTACT YOUR PROVIDER VIA [employer] TO DISCUSS ANY QUESTIONS ORCONCERNS YOU MAY HAVE REGARDING THESE TEST RESULTS. RADIOLOGY REPORT FACILITY: [facility] UNIT/AGE/GENDER: M.PERIOP OP AGE:61 Y SEX:M PATIENT NAME/: MARGARITA STEVE D 1960 UNIT NUMBER: [id number] ACCESSION NUMBER: [id number] EXAMINATION: Pelvis. DATE: 03/30/2022 at 1524. COMPARISON: None. CLINICAL HISTORY: Avascular necrosis of both femoral heads. Underwentbilateral hip arthroplasty today. Initial encounter. FINDINGS: An AP view of the pelvis shows bipolar hip arthroplasty devicesbilaterally, with a cerclage wire noted on the left. There isnear-anatomic alignment and positioning. Overall bone mineralization iswithin normal limits, and there are no acute fractures. Postoperative changes of previous L5-S1 fusion are incidentallyidentified. Multiple calcified phleboliths are evident. IMPRESSION: Immediately postop bilateral hip arthroplasty. Dictated by: Dayo Nikki, M.D. Images and Report reviewed and interpreted by: Dayo Jordan M.D. <PS><Electronically signed by: Dayo Jordan M.D.> 03/30/2022 1641 1637 1637 us Cholo Dotson MD [facility] DIAGNOSTIC IMAGING ORD ERABLES Final Result * FL C-Arm Greater than 1 Hour (03/30/2022 1:42 PM EDT) Impressions Test Radiology, Technologist, RT - 03/30/2022 1:50 PM EDT were obtained for surgical purposes. ??See Cholo Dotson's surgical note in the patient's chart for the findings. Narrative Test Radiology, Technologist, RT - 03/30/2022 1:50 PM EDT Images us Cholo Dotson MD [facility] FLUOROSCOPY ORDERABLES Final Result * XR Hip 1 Vw RT (03/30/2022 1:42 PM EDT) Anatomical Region Laterality Modality Hip [facility] Radiographic Imaging 03/30/2022 2:05 PM EDT Narrative 03/30/2022 2:07 PM EDT REVIEWING YOUR TEST RESULTS IN [facility] IS NOT A SUBSTITUTE FOR DISCUSSING THOSE RESULTS WITH YOUR HEALTH CARE PROVIDER. PLEASE CONTACT YOUR PROVIDER VIA [facility] TO DISCUSS ANY QUESTIONS OR CONCERNS YOU MAY HAVE REGARDING THESE TEST RESULTS. RADIOLOGY REPORT FACILITY: ??[facility] UNIT/AGE/GENDER: M.PERIOP ??OP ?AGE:61 Y ?SEX:M PATIENT NAME/: ??, MARGARITA, D ?1960 UNIT NUMBER: ??[id number] ACCESSION NUMBER: ??[id number] Intraoperative fluoroscopic images of the XR HIP 1 VW RT, XR HIP 1 VW LT 03/30/2022 1:51 PM HISTORY: surgery COMPARISON: None. TECHNIQUE: ??2 Intraoperative fluoroscopic images of the left hip and right hip were obtained. Total fluoroscopy time 26.4 seconds. FINDINGS: Images show bilateral total hip arthroplasties in place. IMPRESSION: Intraoperative fluoroscopic images of the hips performed for surgical planning purposes. Dictated by: Eron Mills M.D. Images and Report reviewed and interpreted by: Eron Mills M.D. <PS><Electronically signed by: Eron Mills M.D.> 03/30/2022 1406 1405 1404 Procedure Note Eron Mills MD - 03/30/2022 REVIEWING YOUR TEST RESULTS IN [facility] IS NOT A SUBSTITUTE FORDISCUSSING THOSE RESULTS WITH YOUR HEALTH CARE PROVIDER. PLEASE CONTACT YOUR PROVIDER VIA [employer] TO DISCUSS ANY QUESTIONS ORCONCERNS YOU MAY HAVE REGARDING THESE TEST RESULTS. RADIOLOGY REPORT FACILITY: [facility] UNIT/AGE/GENDER: M.PERIOP OP AGE:61 Y SEX:M PATIENT NAME/: MARGARITA STEVEMary Ellen 1960 UNIT NUMBER: [id number] ACCESSION NUMBER: [id number] Intraoperative fluoroscopic images of the XR HIP 1 VW RT, XR HIP 1 VW LT03/30/2022 1:51 PM HISTORY: surgery COMPARISON: None. TECHNIQUE: 2 Intraoperative fluoroscopic images of the left hip and righthip were obtained. Total fluoroscopy time 26.4 seconds. FINDINGS: Images show bilateral total hip arthroplasties in place. IMPRESSION: Intraoperative fluoroscopic images of the hips performed for surgicalplanning purposes. Dictated by: Eron Mills M.D. Images and Report reviewed and interpreted by: Eron Mills M.D. <PS><Electronically signed by: Eron Mills M.D.> 03/30/2022 1406 1404 1404 us Cholo Dotson MD IMG DIAGNOSTIC IMAGING ORD ERABLES Final Result * XR Hip 1 Vw LT (03/30/2022 12:35 PM EDT) Anatomical Region Laterality Modality Hip [facility] Radiographic Imaging 03/30/2022 2:05 PM EDT Narrative 03/30/2022 2:07 PM EDT RE[facility]ING YOUR TEST RESULTS IN [facility] IS NOT A SUBSTITUTE FOR DISCUSSING THOSE RESULTS WITH YOUR HEALTH CARE PROVIDER. PLEASE CONTACT YOUR PROVIDER VIA [employer] TO DISCUSS ANY QUESTIONS OR CONCERNS YOU MAY HAVE REGARDING THESE TEST RESULTS. RADIOLOGY REPORT FACILITY: ??[facility] UNIT/AGE/GENDER: M.PERIOP ??OP ?AGE:61 Y ?SEX:M PATIENT NAME/: ??MARGARITA STEVE D ?1960 UNIT NUMBER: ??[id number] ACCESSION NUMBER: ??[id number] Intraoperative fluoroscopic images of the XR HIP 1 VW RT, XR HIP 1 VW LT 03/30/2022 1:51 PM HISTORY: surgery COMPARISON: None. TECHNIQUE: ??2 Intraoperative fluoroscopic images of the left hip and right hip were obtained. Total fluoroscopy time 26.4 seconds. FINDINGS: Images show bilateral total hip arthroplasties in place. IMPRESSION: Intraoperative fluoroscopic images of the hips performed for surgical planning purposes. Dictated by: Eron Mills M.D. Images and Report reviewed and interpreted by: Eron Mills M.D. <PS><Electronically signed by: Eron Mills M.D.> 03/30/2022 1406 1405 1405 Procedure Note Eron Mills MD - 03/30/2022 REVIEWING YOUR TEST RESULTS IN [facility] IS NOT A SUBSTITUTE FORDISCUSSING THOSE RESULTS WITH YOUR HEALTH CARE PROVIDER. PLEASE CONTACT YOUR PROVIDER VIA [employer] TO DISCUSS ANY QUESTIONS ORCONCERNS YOU MAY HAVE REGARDING THESE TEST RESULTS. RADIOLOGY REPORT FACILITY: [facility] UNIT/AGE/GENDER: M.PERIOP OP AGE:61 Y SEX:M PATIENT NAME/: MARGARITA STEVE D 1960 UNIT NUMBER: [id number] ACCESSION NUMBER: [id number] Intraoperative fluoroscopic images of the XR HIP 1 VW RT, XR HIP 1 VW LT03/30/2022 1:51 PM HISTORY: surgery COMPARISON: None. TECHNIQUE: 2 Intraoperative fluoroscopic images of the left hip and righthip were obtained. Total fluoroscopy time 26.4 seconds. FINDINGS: Images show bilateral total hip arthroplasties in place. IMPRESSION: Intraoperative fluoroscopic images of the hips performed for surgicalplanning purposes. Dictated by: Eron Mills M.D. Images and Report reviewed and interpreted by: Eron Mills M.D. <PS><Electronically signed by: Eron Mills M.D.> 03/30/2022 1406 1405 1405 us Cholo Dotson MD IMG DIAGNOSTIC IMAGING ORD ERABLES Final Result * Type and Screen (03/30/2022 11:29 AM EDT) ABO/Rh(D) O Positive 03/30/2022 12:[address] [facility] Antibody Screen Negative 03/30/2022 12:[address] Crossmatch Expiration 04/02/2022,2 359 03/30/2022 12:[address] Whole Blood BLOOD SPECIMEN FROM PATIENT / Unknown 03/30/2022 11:29 AM EDT 03/30/2022 11:57 AM EDT us Cholo Dotson MD BLOOD BANK TEST ORDERABLES Final Result [place] [id number] [address] * Glucose-Glucometer (03/30/2022 8:49 AM EDT) Glucose Glucometer 118 71 - 139 mg/dL 03/30/2022 8:[address] Serum 03/30/2022 8:49 AM EDT 03/30/2022 8:51 AM EDT us Cholo Dotson MD LAB BLOOD ORDERABLES Final Result [place] [id number] [address] documented in this encounter Visit Diagnoses Diagnosis Primary osteoarthritis of hips, bilateral- Primary Status post total replacement of both hips 03/30/22 Hypertension Unspecified essential hypertension Asthma Unspecified asthma Sleep apnea Unspecified sleep apnea Status post total replacement of both hips 03/30/22 Stage 3a chronic kidney disease documented in this encounter Admitting Diagnoses Diagnosis Arthritis of both hips Primary osteoarthritis of hips, bilateral documented in this encounter Administered Medications Inactive Administered Medications - up to 3 most recent administrations Medication Order MAR Action Action Date Dose Rate Site 0.9% NaCl infusion Intravenous, at 75 mL/hr, Continuous, Starting on Tue03/30/22 at 1630, Discontinue once taking PO fluids., 1,000 mL, Until Tue04/01/22 at 1611, Post-op, Routine New Bag 03/30/2022 5:54 PM EDT 75 mL/hr acetaminophen (TYLENOL) tablet 1,000 mg 1,000 mg, Oral, Once, On Tue03/30/22 at 0815, For 1 dose, Hold if taken prior to arrival. Give with a sip of water., Pre-op, Routine Given 03/30/2022 8:51 AM EDT 1,000 mg acetaminophen (TYLENOL) tablet 650 mg 650 mg, Oral, Every 4 hours PRN, Mild pain, Headaches, Fever, Starting on Tue03/31/22 at 1300, Maximum Recommended Dose for Adults of Acetaminophen = 4 gm Per Day., Until Tue04/01/22 at 1611, Routine albuterol HFA inhaler 2 puff 2 puff, Inhalation, Every 6 hours PRN (RT), Wheezing, Starting on Tue03/30/22 at 1627, Until Tue04/01/22 at 1611, Routine, With Tx Panel? Yes allopurinol (ZYLOPRIM) tablet 300 mg 300 mg, Oral, Daily, First dose on Tue03/31/22 at 0800, Give With A Full Glass Of Water If Able. Give With A Full Glass Of Water If Able., Until Discontinued, Post-op, Routine, Previous Med: allopurinol (ZYLOPRIM) 300 MG tablet - Orig Sig - Take 300 mg by mouth daily . Given 04/01/2022 8:56 AM EDT 300 mg Given 03/31/2022 9:25 AM EDT 300 mg apixaban (ELIQUIS) tablet 2.5 mg 2.5 mg, Oral, 2 times daily, First dose on Tue03/31/22 at 0800, Until Discontinued, Post-op, RoutineIndications:PostOp DVT Proph (2.5mg BID) Given 04/01/2022 8:56 AM EDT 2.5 mg Given 03/31/2022 8:39 PM EDT 2.5 mg Given 03/31/2022 9:26 AM EDT 2.5 mg budesonide-formoterol (SYMBICORT) 160-4.5 MCG/ACT inhaler 2 puff 2 puff, Inhalation, BID (RT), First dose on Tue03/30/22 at 1900, Patient Should Rinse Mouth After Use., Until Discontinued, Routine, With Tx Panel? Yes Given 04/01/2022 7:39 AM EDT 2 puffs Given 03/31/2022 7:00 PM EDT 2 puffs Given 03/31/2022 7:49 AM EDT 2 puffs ceFAZolin (KEFZOL/ANCEF) 2 g in dextrose 5 % 50 mL IVPB infusion 2 g, Intravenous, at 120 mL/hr, Every 8 hours, First dose on Tue03/30/22 at 1830, For 2 doses, To give 8 hours after last operative dose., 60 mL, Administer over 30 Minutes, Last dose on Tue03/31/22 at 0230, Post-op, TimedIndications:Surgical Prophylaxis New Bag 03/31/2022 3:14 AM EDT 2 g 120 mL/hr New Bag 03/30/2022 5:49 PM EDT 2 g 120 mL/hr ceFAZolin 2 g/50 mL in D5W 2 g, Intravenous, at 120 mL/hr, once within 60 min pre-incision, Starting on Tue03/30/22 at 0840, For 1 dose, 60 Minutes Prior to Incision For cases involving a tourniquet: Infuse the entire dose(s) of antibiotic PRIOR to inflating the tourniquet., 60 mL, Administer over 30 Minutes, Until Tue03/30/22 at 1056, Pre-op, RoutineIndications:Surgical Prophylaxis New Bag 03/30/2022 10:26 AM EDT 2 g 120 mL/hr celecoxib (CeleBREX) capsule 200 mg 200 mg, Oral, Once, On Tue03/30/22 at 0815, For 1 dose, Give with a sip of water., Pre-op, Routine Given 03/30/2022 8:51 AM EDT 200 mg cyclobenzaprine (FLEXERIL) tablet 10 mg 10 mg, Oral, 3 times daily PRN, Muscle spasms, Starting on Tue03/30/22 at 1624, Until [place] 04/01/22 at 1611, Post-op, Routine Given 04/01/2022 8:56 AM EDT 10 mg Given 03/31/2022 11:44 AM EDT 10 mg dexamethasone (DECADRON) injection 4 mg 4 mg, Intravenous, at 12 mL/hr, Once, On Tue03/30/22 at 0900, For 1 dose, 1 mL, Administer over 5 Minutes, Pre-op, Routine Given 03/30/2022 9:50 AM EDT 4 mg 12 mL/ hr docusate sodium (COLACE) capsule 100 mg 100 mg, Oral, 2 times daily, First dose on Tue03/30/22 at 2000, Until first bowel movement, Until Discontinued, Post-op, Routine Given 03/30/2022 9:18 PM EDT 100 mg famotidine (PEPCID) injection 20 mg 20 mg, Intravenous, Once, On Tue03/30/22 at 0900, For 1 dose, 2 mL, Pre-op, Routine Given 03/30/2022 9:50 AM EDT 20 mg fluticasone (FLONASE) 50 MCG/ACT 2 spray 2 spray, Nasal, Daily, First dose on Tue03/31/22 at 0800, To Each Nostril., Until Discontinued, Post-op, Routine, Previous Med: fluticasone (FLONASE) 50 MCG/ACT nasal spray - Orig Sig - Instill 2 sprays into nose daily . Given 04/01/2022 8:57 AM EDT 2 sprays Given 03/31/2022 11:47 AM EDT 2 sprays gabapentin (NEURONTIN) capsule 300 mg 300 mg, Oral, Once, On Tue03/30/22 at 0815, For 1 dose, Give with a sip of water, Pre-op, Routine Given 03/30/2022 8:52 AM EDT 300 mg hydroCHLOROthiazide (HydroDIURIL) tablet 25 mg 25 mg, Oral, Daily, First dose on Tue03/31/22 at 0800, Until Discontinued, Routine Given 04/01/2022 8:56 AM EDT 25 mg Given 03/31/2022 9:25 AM EDT 25 mg lactated ringers infusion Intravenous, at 25 mL/hr, Continuous, Starting on Tue03/30/22 at 0815, KVO, 1,000 mL, Until Tue03/30/22 at 1619, Pre-op, Routine New Bag 03/30/2022 1:27 PM EDT New Bag 03/30/2022 11:06 AM EDT Restarted 03/30/2022 10:40 AM EDT lidocaine injection 1% 1 mL, Intradermal, Once, On Tue03/30/22 at 0815, For 1 dose, Create 0.1 to 0.3 mm bleb to anesthetize site prior to venipuncture., 10 mL, Pre-op, Routine Given 03/30/2022 9:51 AM EDT 1 mL lidocaine PF (XYLOCAINE) 1 % injectable Starting on Tue03/30/22 at 0817, For 1 dose, Created by cabinet override, Until Tue03/30/22 at 0951, Created by cabinet override lisinopril (PRINIVIL) tablet 20 mg 20 mg, Oral, Daily, First dose on Tue03/31/22 at 0800, Until Discontinued, Routine Given 04/01/2022 8:56 AM EDT 20 mg Given 03/31/2022 9:25 AM EDT 20 mg loratadine (CLARITIN) tablet 10 mg 10 mg, Oral, Daily, First dose on Tue03/31/22 at 0800, Until Discontinued, Post-op, Previous Med: fexofenadine (GABBIE) 180 MG tablet - Orig Sig - Take 180 mg by mouth daily . Given 04/01/2022 8:56 AM EDT 10 mg Given 03/31/2022 9:25 AM EDT 10 mg magnesium sulfate 2 g in dextrose 5 % 50 mL IVPB 2 g, Intravenous, at 27 mL/hr, As needed per protocol PRN, Other, Per Protocol, Starting on Tue03/30/22 at 1753, DO NOT USE if serum creatinine is greater than 2 and notify MD. Serum Magnesium Level 1.3 To 1.5 mg/dL:?Give X 1 Dose. Draw Serum Magnesium Level in A.M. & Continue Supplementation Per Protocol. Serum Magnesium Level Less Than 1.3 mg/dL:?Give X 2 Doses Draw Serum Magnesium & Potassium in the A.M. & Continue Supplementation Per Protocol., 54 mL, Administer over 120 Minutes, Until [facility] 04/01/22 at 1611, RoutineIndications:Total Body Mag Depletion Midazolam (PF) (VERSED) injection 1 mg 1 mg, Intravenous, PRN, May repeat x 1 dose, Starting on Tue03/30/22 at 0857, For 2 doses, 1 mL, Until Tue03/30/22 at 1028, Pre-op, Routine Given 03/30/2022 10:28 AM EDT 1 mg Given 03/30/2022 10:26 AM EDT 1 mg montelukast (SINGULAIR) tablet 10 mg 10 mg, Oral, Nightly, First dose on Tue03/30/22 at 2100, Until Discontinued, Post-op, Routine, Previous Med: montelukast (SINGULAIR) 10 MG tablet - Orig Sig - Take 10 mg by mouth nightly . Given 03/31/2022 8:39 PM EDT 10 mg Given 03/30/2022 9:18 PM EDT 10 mg ondansetron (ZOFRAN) injection 4 mg 4 mg, Intravenous, Once, On Tue03/30/22 at 0900, For 1 dose, 2 mL, Pre-op, Routine Given 03/30/2022 9:50 AM EDT 4 mg ondansetron (ZOFRAN) injection 4 mg 4 mg, Intravenous, Every 6 hours PRN, Nausea, Vomiting, Starting on Tue03/30/22 at 1624, Give if unable to tolerate oral., 2 mL, Until Tue04/01/22 at 1611, Post-op, Routine ondansetron (ZOFRAN) tablet 4 mg 4 mg, Oral, Every 6 hours PRN, Nausea, Vomiting, Starting on Tue03/30/22 at 1624, Until Tue04/01/22 at 1611, Post-op, Routine oxyCODONE-acetaminophen (PERCOCET) 5-325 MG 1 tablet 1 tablet, Oral, Every 4 hours PRN, Mild Pain, Moderate Pain, Starting on Tue03/30/22 at 1624, Maximum Recommended Dose for Adults of Acetaminophen = 4 gm Per Day., Until Tue03/31/22 at 1301, Post-op, Routine Given 03/30/2022 9:17 PM EDT 1 tablet oxyCODONE-acetaminophen (PERCOCET) 5-325 MG 2 tablet 2 tablet, Oral, Every 4 hours PRN, Severe pain, Starting on Tue03/31/22 at 1300, Maximum Recommended Dose for Adults of Acetaminophen = 4 gm Per Day., Until Tue04/01/22 at 1611, Post-op, Routine Given 04/01/2022 10:20 AM EDT 2 tablets Given 04/01/2022 5:50 AM EDT 2 tablets Given 04/01/2022 2:01 AM EDT 2 tablets oxyCODONE-acetaminophen (PERCOCET) 7.5-325 MG 1 tablet 1 tablet, Oral, Every 4 hours PRN, Severe pain, Starting on Tue03/30/22 at 1624, Maximum Recommended Dose for Adults of Acetaminophen = 4 gm Per Day., Until Tue03/31/22 at 1301, Post-op, Routine Given 03/31/2022 11:44 AM EDT 1 tablet Given 03/31/2022 7:43 AM EDT 1 tablet Given 03/31/2022 3:15 AM EDT 1 tablet oxyCODONE-acetaminophen (PERCOCET) 7.5-325 MG 1 tablet 1 tablet, Oral, Every 4 hours PRN, Moderate pain, Starting on Tue03/31/22 at 1300, Maximum Recommended Dose for Adults of Acetaminophen = 4 gm Per Day., Until Tue04/01/22 at 1611, Post-op, Routine potassium chloride 10 mEq in 100 mL IVPB 10 mEq, Intravenous, at 100 mL/hr, As needed per protocol PRN, Other, If Patient is NPO or Symptomatic Give 10 meq Over 1 Hour??(Peripheral), Starting on Tue03/30/22 at 1753, Do not use if serum creatinine is greater than 2, and notify physician. For Serum Potassium Level 3.5 to 3.9 mg/dL - Give 10 meq over 1 Hour x 2 Doses. Repeat Serum Potassium Level 2 Hours After Last Dose. For Serum Potassium Level 3.1 to 3.4 mg/dL - Give 10 meq over 1 Hour x 3 Doses. Repeat Serum Potassium Level 2 Hours After Last Dose. For Serum Potassium Level 3 mg/dL or Less - Give 10 meq over 1 Hour x 3 Doses. Repeat Serum Potassium Level 2 Hours After Last Dose and Draw Serum Magnesium Level. If Serum Magnesium Level is Less Than 1.6 mg/dL, Then [place] the Magnesium Replacement Protocol., 100 mL, Administer over 60 Minutes, Until [facility] 04/01/22 at 1611, Routine potassium chloride 10 mEq in 50 mL IVPB 10 mEq, Intravenous, at 50 mL/hr, As needed per protocol PRN, Other, If Patient is NPO or Symptomatic Give 10 meq Over 1 Hour??(Central Line), Starting on Tue03/30/22 at 1753, Do not use if serum creatinine is greater than 2, and notify physician. For Serum Potassium Level 3.5 to 3.9 mg/dL - Give 10 meq over 1 Hour x 2 Doses. Repeat Serum Potassium Level 2 Hours After Last Dose. For Serum Potassium Level 3.1 to 3.4 mg/dL - Give 10 meq over 1 Hour x 3 Doses. Repeat Serum Potassium Level 2 Hours After Last Dose. For Serum Potassium Level 3 mg/dL or Less - Give 10 meq over 1 Hour x 3 Doses. Repeat Serum Potassium Level 2 Hours After Last Dose and Draw Serum Magnesium Level. If Serum Magnesium Level is Less Than 1.6 mg/dL, Then [place] the Magnesium Replacement Protocol., 50 mL, Administer over 60 Minutes, Until [facility] 04/01/22 at 1611, Routine potassium chloride 20 MEQ/15ML (10%) solution 20-40 mEq 20-40 mEq, Tube, As needed per protocol PRN, Other, If Able To Take Oral Medications For Potassium Replacement, Starting on Tue03/30/22 at 1753, Do not use if serum creatinine is greater than 2, and notify physician. Serum Potassium Level 3.5 To 3.9 mg/dL:?Give 20 meq Now & 20 meq in Two Hours. Repeat Serum Potassium Level 2 Hours After Last Dose. Serum Potassium Level 3.1 To 3.4 mg/dL:?Give 40 meq Now & 20 meq in Two Hours. Repeat Serum Potassium Level 2 Hours After Last Dose. For Serum Potassium Level 3 mg/dL or Less :?Give 40 meq Now & 20 meq in Two Hours. Notify Physician. Repeat Serum Potassium Level 2 Hours After Last Dose and Draw Serum Magnesium Level. If Magnesium is Less Than 1.6 mg/dL, Then [place] the Magnesium Replacement Protocol., 30 mL, Until [facility] 04/01/22 at 1611, Routine potassium chloride SA (KLOR-CON) CR tablet 20-40 mEq 20-40 mEq, Oral, As needed per protocol PRN, Other, If Able To Take Oral Medications For Potassium Replacement, Starting on Tue03/30/22 at 1753, Do not use if serum creatinine is greater than 2, and notify physician. Serum Potassium Level 3.5 To 3.9 mg/dL:?Give 20 meq Now & 20 meq in Two Hours. Repeat Serum Potassium Level 2 Hours After Last Dose. Serum Potassium Level 3.1 To 3.4 mg/dL:?Give 40 meq Now & 20 meq in Two Hours. Repeat Serum Potassium Level 2 Hours After Last Dose. For Serum Potassium Level 3 mg/dL or Less :?Give 40 meq Now & 20 meq in Two Hours. Notify Physician. Repeat Serum Potassium Level 2 Hours After Last Dose and Draw Serum Magnesium Level. If Magnesium is Less Than 1.6 mg/dL, Then [place] the Magnesium Replacement Protocol., Until [facility] 04/01/22 at 1611, Routine scopolamine (TRANSDERM-SCOP) 1 MG (1.5 MG BASE)/3 DAYS 1 patch 1 patch, Transdermal, Once, On Tue03/30/22 at 0900, For 1 dose, Place Behind Ear, Pre-op, Routine Patch/Ointment Applied 03/30/2022 9:50 AM EDT 1 patch Behind Right Ear traZODone (DESYREL) tablet 100 mg 100 mg, Oral, Nightly, First dose on Tue03/31/22 at 0100, Until Discontinued, Routine Given 03/31/2022 8:39 PM EDT 100 mg Given 03/31/2022 12:57 AM EDT 100 mg documented in this encounter Active and Recently Administered Medications Times are shown in EDT. Scheduled Medication Order 03/30/2022 03/31/2022 04/01/2022 acetaminophen (TYLENOL) tablet 1,000 mg (COMPLETED) 1,000 mg, Oral, Once, On Tue03/30/22 at 0815, For 1 dose, Hold if taken prior to arrival. Give with a sip of water., Pre-op, Routine 850 (Given - Provider: Simran Dumont RN) allopurinol (ZYLOPRIM) tablet 300 mg 300 mg, Oral, Daily, First dose on Tue03/31/22 at 0800, Give With A Full Glass Of Water If Able. Give With A Full Glass Of Water If Able., Until Discontinued, Post-op, Routine, Previous Med: allopurinol (ZYLOPRIM) 300 MG tablet - Orig Sig - Take 300 mg by mouth daily . 924 (Given - Provider: Nereyda Mcdonough RN) 0856 (Given - Provider: Nereyda Mcdonough RN) apixaban (ELIQUIS) tablet 2.5 mg 2.5 mg, Oral, 2 times daily, First dose on Tue03/31/22 at 0800, Until Discontinued, Post-op, Routine 925 (Given - Provider: Nereyda Mcdonough, BELINDA)2038 (Given - Provider: Natasha Guerrero, BELINDA) 0856 (Given - Provider: Nereyda Mcdonough, BELINDA) budesonide-formoterol (SYMBICORT) 160-4.5 MCG/ACT inhaler 2 puff(Linked Group 1) 2 puff, Inhalation, BID (RT), First dose on Tue03/30/22 at 1900, Patient Should Rinse Mouth After Use., Until Discontinued, Routine, With Tx Panel? Yes 1900 (Given - Provider: Anna Staton, SENIOR RESEARCH EXECUTIVE) 0749 (Given - Provider: Jeannette Lees, REGINALD)1899 (Given - Provider: Berkley Valle, ) 0739 (Given - Provider: Haley Holder, SENIOR RESEARCH EXECUTIVE) ceFAZolin (KEFZOL/ANCEF) 2 g in dextrose 5 % 50 mL IVPB infusion (COMPLETED) 2 g, Intravenous, at 120 mL/hr, Every 8 hours, First dose on Tue03/30/22 at 1830, For 2 doses, To give 8 hours after last operative dose., 60 mL, Administer over 30 Minutes, Last dose on Tue03/31/22 at 0230, Post-op, Timed 1749 (New Bag - Provider: Renata Watt RN)1830 (Stopped - Provider: Renata Watt, RN) 0314 (New Bag - Provider: Natasha Guerrero, BELINDA)0344 (Stopped - Provider: Natasha Guerrero RN) ceFAZolin 2 g/50 mL in D5W (COMPLETED) 2 g, Intravenous, at 120 mL/hr, once within 60 min pre-incision, Starting on Tue03/30/22 at 0840, For 1 dose, 60 Minutes Prior to Incision For cases involving a tourniquet: Infuse the entire dose(s) of antibiotic PRIOR to inflating the tourniquet., 60 mL, Administer over 30 Minutes, Until Tue03/30/22 at 1056, Pre-op, Routine 1026 (New Bag - Provider: Simran Dumont RN)1056 (Due: Stopped - Provider: Simran Dumont RN) celecoxib (CeleBREX) capsule 200 mg (COMPLETED) 200 mg, Oral, Once, On Tue03/30/22 at 0815, For 1 dose, Give with a sip of water., Pre-op, Routine 0851 (Given - Provider: Simran Dumont RN) dexamethasone (DECADRON) injection 4 mg (COMPLETED) 4 mg, Intravenous, at 12 mL/hr, Once, On Tue03/30/22 at 0900, For 1 dose, 1 mL, Administer over 5 Minutes, Pre-op, Routine 0950 (Given - Provider: Simran Dumont RN) docusate sodium (COLACE) capsule 100 mg 100 mg, Oral, 2 times daily, First dose on Tue03/30/22 at 2000, Until first bowel movement, Until Discontinued, Post-op, Routine 2118 (Given - Provider: Natasha Guerrero RN) 0925 (Not Given - Provider: Nereyda Mcdonough RN - Reason: Patient/family refused)2038 (Not Given - Provider: Natasha Guerrero RN - Reason: Patient/family refused) 0857 (Not Given - Provider: Nereyda Mcdonough RN - Reason: Patient/family refused) famotidine (PEPCID) injection 20 mg (COMPLETED) 20 mg, Intravenous, Once, On Tue03/30/22 at 0900, For 1 dose, 2 mL, Pre-op, Routine 0950 (Given - Provider: Simran Dumont RN) fluticasone (FLONASE) 50 MCG/ACT 2 spray 2 spray, Nasal, Daily, First dose on Tue03/31/22 at 0800, To Each Nostril., Until Discontinued, Post-op, Routine, Previous Med: fluticasone (FLONASE) 50 MCG/ACT nasal spray - Orig Sig - Instill 2 sprays into nose daily . 114 (Given - Provider: Nereyda Mcdonough RN) 0857 (Given - Provider: Nereyda Mcdonough RN) gabapentin (NEURONTIN) capsule 300 mg (COMPLETED) 300 mg, Oral, Once, On Tue03/30/22 at 0815, For 1 dose, Give with a sip of water, Pre-op, Routine 0852 (Given - Provider: Simran Dumont RN) hydroCHLOROthiazide (HydroDIURIL) tablet 25 mg(Linked Group 2) 25 mg, Oral, Daily, First dose on Tue03/31/22 at 0800, Until Discontinued, Routine 09 (Given - Provider: Nereyda Mcdonough RN) 0856 (Given - Provider: Nereyda Mcdonough RN) lidocaine injection 1% (COMPLETED) 1 mL, Intradermal, Once, On Tue03/30/22 at 0815, For 1 dose, Create 0.1 to 0.3 mm bleb to anesthetize site prior to venipuncture., 10 mL, Pre-op, Routine 0951 (Given - Provider: Simran Dumont RN) lisinopril (PRINIVIL) tablet 20 mg(Linked Group 2) 20 mg, Oral, Daily, First dose on Tue03/31/22 at 0800, Until Discontinued, Routine 09 (Given - Provider: Nereyda Mcdonough RN) 0856 (Given - Provider: Nereyda Mcdonough RN) loratadine (CLARITIN) tablet 10 mg 10 mg, Oral, Daily, First dose on Tue03/31/22 at 0800, Until Discontinued, Post-op, Previous Med: fexofenadine (GABBIE) 180 MG tablet - Orig Sig - Take 180 mg by mouth daily . 924 (Given - Provider: Nereyda Mcdonough RN) 0856 (Given - Provider: Nereyda Mcdonough RN) montelukast (SINGULAIR) tablet 10 mg 10 mg, Oral, Nightly, First dose on Tue03/30/22 at 2100, Until Discontinued, Post-op, Routine, Previous Med: montelukast (SINGULAIR) 10 MG tablet - Orig Sig - Take 10 mg by mouth nightly . 2117 (Given - Provider: Natasha Guerrero RN) 2038 (Given - Provider: Natasha Guerrero RN) ondansetron (ZOFRAN) injection 4 mg (COMPLETED) 4 mg, Intravenous, Once, On Tue03/30/22 at 0900, For 1 dose, 2 mL, Pre-op, Routine 0950 (Given - Provider: Simran Dumont RN) scopolamine (TRANSDERM-SCOP) 1 MG (1.5 MG BASE)/3 DAYS 1 patch (COMPLETED) 1 patch, Transdermal, Once, On Tue03/30/22 at 0900, For [address] dose, Place Behind Ear, Pre-op, Routine 0950 (Patch/Ointment Applied - Provider: Simran Dumont RN) sertraline (ZOLOFT) tablet 25 mg 25 mg, Oral, Daily, First dose on Tue03/31/22 at 0800, Avoid Grapefruit Juice., Until Discontinued, Post-op, Routine, Previous Med: sertraline (ZOLOFT) 25 MG tablet - Orig Sig - Take 25 mg by mouth daily. 924 (Not Given - Provider: Nereyda Mcdonouhg RN - Reason: Patient/family refused) 0856 (Not Given - Provider: Nereyda Mcdonough RN - Reason: Patient/family refused) tranexamic acid (CYKLOKAPRON) 1000 mg/60 mL ivpb infusion (COMPLETED) 1,000 mg (1 g), Intravenous, at 120 mL/hr, Once, On Tue03/30/22 at 0815, For 1 dose, Complete infusion 20 minutes prior to incision (hip) or tourniquet inflation (knee)., 60 mL, Administer over 30 Minutes, Pre-op, Routine 1037 (Given - Provider: Beena Coyne CRNA)1422 (Anesthesia Volume Adjustment - Provider: Judith Harris CRNA) tranexamic acid (CYKLOKAPRON) 1000 mg/60 mL ivpb infusion (COMPLETED) 1,000 mg (1 g), Intravenous, at 120 mL/hr, Once, On Tue03/30/22 at 1115, For 1 dose, 60 mL, Administer over 30 Minutes, Intra-op, Routine 1253 (Given - Provider: Beena Coyne CRNA)1422 (Anesthesia Volume Adjustment - Provider: Judith Harris CRNA) traZODone (DESYREL) tablet 100 mg 100 mg, Oral, Nightly, First dose on Tue03/31/22 at 0100, Until Discontinued, Routine 0057 (Given - Provider: Natasha Guerrero, BELINDA)2038 (Given - Provider: Natasha Guerrero, BELINDA) Continuous Medication Order 03/30/2022 03/31/2022 04/01/2022 0.9% NaCl infusion Intravenous, at 75 mL/hr, Continuous, Starting on Tue03/30/22 at 1630, Discontinue once taking PO fluids., 1,000 mL, Until [facility] 04/01/22 at 1611, Post-op, Routine 1754 (New Bag - Provider: Renata Watt, BELINDA) lactated ringers infusion (CANCELED) Intravenous, at 25 mL/hr, Continuous, Starting on Tue03/30/22 at 0815, KVO, 1,000 mL, Until Tue03/30/22 at 1619, Pre-op, Routine 0851 (New Bag - Provider: Simran Dumont, BELINDA)1029 (Intraop Orders continued from Pre-op - Provider: Beena Coyne CRNA)1039 (Paused - Provider: Beena Coyne CRNA - Comment: Switch to gravity)1040 (Restarted - Provider: Beena Coyne CRNA)1106 (New Bag - Provider: Beena Coyne CRNA)1137 (Anesthesia Volume Adjustment - Provider: Cecille Cruz CRNA)1230 (Anesthesia Volume Adjustment - Provider: Beena Coyne CRNA)1327 (New Bag - Provider: Judith Harris CRNA)1402 (Anesthesia Volume Adjustment - Provider: Judith Harris CRNA)1422 (Stopped - Provider: Judith Harris CRNA) PRN Medication Order 03/30/2022 03/31/2022 04/01/2022 acetaminophen (TYLENOL) tablet 650 mg 650 mg, Oral, Every 4 hours PRN, Mild pain, Headaches, Fever, Starting on Tue03/31/22 at 1300, Maximum Recommended Dose for Adults of Acetaminophen = 4 gm Per Day., Until Tue04/01/22 at 1611, Routine albuterol HFA inhaler 2 puff(Linked Group 3) 2 puff, Inhalation, Every 6 hours PRN (RT), Wheezing, Starting on Tue03/30/22 at 1627, Until Tue04/01/22 at 1611, Routine, With Tx Panel? Yes cyclobenzaprine (FLEXERIL) tablet 10 mg 10 mg, Oral, 3 times daily PRN, Muscle spasms, Starting on Tue03/30/22 at 1624, Until Tue04/01/22 at 1611, Post-op, Routine 1144 (Given - Provider: Nereyda Mcdonough RN) 0856 (Given - Provider: Nereyda Mcdonough RN) diphenhydrAMINE (BENADRYL) capsule 25 mg 25 mg, Oral, Every 6 hours PRN, Itching, Starting on Tue03/30/22 at 1624, Until Tue04/01/22 at 1611, Post-op, Routine EPINEPHrine PF (ADRENALIN) injection (CANCELED) Intra-op PRN, Starting on Tue03/30/22 at 1107, Until Tue03/30/22 at 1445, Intra-op, Routine 1107 (Given - Provider: Cholo Dotson MD - Comment: 0.25MG INJECTION EACH HIP) magnesium sulfate 2 g in dextrose 5 % 50 mL IVPB 2 g, Intravenous, at 27 mL/hr, As needed per protocol PRN, Other, Per Protocol, Starting on Tue03/30/22 at 1753, DO NOT USE if serum creatinine is greater than 2 and notify MD. Serum Magnesium Level 1.3 To 1.5 mg/dL:?Give X 1 Dose. Draw Serum Magnesium Level in A.M. & Continue Supplementation Per Protocol. Serum Magnesium Level Less Than 1.3 mg/dL:?Give X 2 Doses Draw Serum Magnesium & Potassium in the A.M. & Continue Supplementation Per Protocol., 54 mL, Administer over 120 Minutes, Until [facility] 04/01/22 at 1611, Routine melatonin tablet 3 mg 3 mg, Oral, Nightly PRN, Sleep, Starting on Tue03/30/22 at 1624, Until [facility] 04/01/22 at 1611, Post-op, Routine Midazolam (PF) (VERSED) injection 1 mg (COMPLETED) 1 mg, Intravenous, PRN, May repeat x 1 dose, Starting on Tue03/30/22 at 0857, For 2 doses, 1 mL, Until Tue03/30/22 at 1028, Pre-op, Routine 1026 (Given - Provider: Simran Dumont RN)1028 (Given - Provider: Simran Dumont RN) morphine injection 2 mg 2 mg, Intravenous, Every 3 hour PRN, For moderate or severe pain unrelieved by oral medication or severe pain when unable to tolertate oral, Starting on Tue03/30/22 at 1624, Discontinue IV 48 hours after surgery, 1 mL, Until [facility] 04/01/22 at 1611, Post-op, Routine ondansetron (ZOFRAN) injection 4 mg(Linked Group 4) 4 mg, Intravenous, Every 6 hours PRN, Nausea, Vomiting, Starting on Tue03/30/22 at 1624, Give if unable to tolerate oral., 2 mL, Until [facility] 04/01/22 at 1611, Post-op, Routine ondansetron (ZOFRAN) tablet 4 mg(Linked Group 4) 4 mg, Oral, Every 6 hours PRN, Nausea, Vomiting, Starting on Tue03/30/22 at 1624, Until [facility] 04/01/22 at 1611, Post-op, Routine oxyCODONE-acetaminophen (PERCOCET) 5-325 MG 1 tablet (CANCELED) 1 tablet, Oral, Every 4 hours PRN, Mild Pain, Moderate Pain, Starting on Tue03/30/22 at 1624, Maximum Recommended Dose for Adults of Acetaminophen = 4 gm Per Day., Until Tue03/31/22 at 1301, Post-op, Routine 1830 (See Alternative - Provider: Renata Watt RN)2116 (Given - Provider: Natasha Guerrero RN) 031 (See Alternative - Provider: Natasha Guerrero RN)0743 (See Alternative - Provider: Natasha Guerrero RN)1144 (See Alternative - Provider: Nereyda Mcdonough RN) oxyCODONE-acetaminophen (PERCOCET) 5-325 MG 2 tablet(Linked Group 5) 2 tablet, Oral, Every 4 hours PRN, Severe pain, Starting on Tue03/31/22 at 1300, Maximum Recommended Dose for Adults of Acetaminophen = 4 gm Per Day., Until Tue04/01/22 at 1611, Post-op, Routine 1506 (Given - Provider: Nereyda Mcdonough RN)2040 (Given - Provider: Natasha Guerrero RN) 0201 (Given - Provider: Natasha Guerrero RN)0550 (Given - Provider: Natasha Guerrero RN)1020 (Given - Provider: Nereyda Mcdonough RN) oxyCODONE-acetaminophen (PERCOCET) 7.5-325 MG 1 tablet (CANCELED) 1 tablet, Oral, Every 4 hours PRN, Severe pain, Starting on Tue03/30/22 at 1624, Maximum Recommended Dose for Adults of Acetaminophen = 4 gm Per Day., Until Tue03/31/22 at 1301, Post-op, Routine 1830 (Given - Provider: Renata Watt RN)2116 (See Alternative - Provider: Natasha Guerrero RN) 031 (Given - Provider: Natasha Guerrero RN)0743 (Given - Provider: Natasha Guerrero RN)1144 (Given - Provider: Nereyda Mcdonough RN) oxyCODONE-acetaminophen (PERCOCET) 7.5-325 MG 1 tablet(Linked Group 5) 1 tablet, Oral, Every 4 hours PRN, Moderate pain, Starting on Tue03/31/22 at 1300, Maximum Recommended Dose for Adults of Acetaminophen = 4 gm Per Day., Until Tue04/01/22 at 1611, Post-op, Routine 1506 (See Alternative - Provider: Nereyda Mcdonough RN)2040 (See Alternative - Provider: Natasha Guerrero RN) 0201 (See Alternative - Provider: Natasha Guerrero, BELINDA)0550 (See Alternative - Provider: Natasha Guerrero, BELINDA)1020 (See Alternative - Provider: Nereyda Mcdonough RN) potassium chloride 10 mEq in 100 mL IVPB(Linked Group 6) 10 mEq, Intravenous, at 100 mL/hr, As needed per protocol PRN, Other, If Patient is NPO or Symptomatic Give 10 meq Over 1 Hour??(Peripheral), Starting on Tue03/30/22 at 1753, Do not use if serum creatinine is greater than 2, and notify physician. For Serum Potassium Level 3.5 to 3.9 mg/dL - Give 10 meq over 1 Hour x 2 Doses. Repeat Serum Potassium Level 2 Hours After Last Dose. For Serum Potassium Level 3.1 to 3.4 mg/dL - Give 10 meq over 1 Hour x 3 Doses. Repeat Serum Potassium Level 2 Hours After Last Dose. For Serum Potassium Level 3 mg/dL or Less - Give 10 meq over 1 Hour x 3 Doses. Repeat Serum Potassium Level 2 Hours After Last Dose and Draw Serum Magnesium Level. If Serum Magnesium Level is Less Than 1.6 mg/dL, Then [place] the Magnesium Replacement Protocol., 100 mL, Administer over 60 Minutes, Until [facility] 04/01/22 at 1611, Routine potassium chloride 10 mEq in 50 mL IVPB(Linked Group 6) 10 mEq, Intravenous, at 50 mL/hr, As needed per protocol PRN, Other, If Patient is NPO or Symptomatic Give 10 meq Over 1 Hour??(Central Line), Starting on Tue03/30/22 at 1753, Do not use if serum creatinine is greater than 2, and notify physician. For Serum Potassium Level 3.5 to 3.9 mg/dL - Give 10 meq over 1 Hour x 2 Doses. Repeat Serum Potassium Level 2 Hours After Last Dose. For Serum Potassium Level 3.1 to 3.4 mg/dL - Give 10 meq over 1 Hour x 3 Doses. Repeat Serum Potassium Level 2 Hours After Last Dose. For Serum Potassium Level 3 mg/dL or Less - Give 10 meq over 1 Hour x 3 Doses. Repeat Serum Potassium Level 2 Hours After Last Dose and Draw Serum Magnesium Level. If Serum Magnesium Level is Less Than 1.6 mg/dL, Then [place] the Magnesium Replacement Protocol., 50 mL, Administer over 60 Minutes, Until [facility] 04/01/22 at 1611, Routine potassium chloride 20 MEQ/15ML (10%) solution 20-40 mEq(Linked Group 6) 20-40 mEq, Tube, As needed per protocol PRN, Other, If Able To Take Oral Medications For Potassium Replacement, Starting on 03/30/22 at 1753, Do not use if serum creatinine is greater than 2, and notify physician. Serum Potassium Level 3.5 To 3.9 mg/dL:?Give 20 meq Now & 20 meq in Two Hours. Repeat Serum Potassium Level 2 Hours After Last Dose. Serum Potassium Level 3.1 To 3.4 mg/dL:?Give 40 meq Now & 20 meq in Two Hours. Repeat Serum Potassium Level 2 Hours After Last Dose. For Serum Potassium Level 3 mg/dL or Less :?Give 40 meq Now & 20 meq in Two Hours. Notify Physician. Repeat Serum Potassium Level 2 Hours After Last Dose and Draw Serum Magnesium Level. If Magnesium is Less Than 1.6 mg/dL, Then [place] the Magnesium Replacement Protocol., 30 mL, Until [facility] 04/01/22 at 1611, Routine potassium chloride SA (KLOR-CON) CR tablet 20-40 mEq(Linked Group 6) 20-40 mEq, Oral, As needed per protocol PRN, Other, If Able To Take Oral Medications For Potassium Replacement, Starting on Tue03/30/22 at 1753, Do not use if serum creatinine is greater than 2, and notify physician. Serum Potassium Level 3.5 To 3.9 mg/dL:?Give 20 meq Now & 20 meq in Two Hours. Repeat Serum Potassium Level 2 Hours After Last Dose. Serum Potassium Level 3.1 To 3.4 mg/dL:?Give 40 meq Now & 20 meq in Two Hours. Repeat Serum Potassium Level 2 Hours After Last Dose. For Serum Potassium Level 3 mg/dL or Less :?Give 40 meq Now & 20 meq in Two Hours. Notify Physician. Repeat Serum Potassium Level 2 Hours After Last Dose and Draw Serum Magnesium Level. If Magnesium is Less Than 1.6 mg/dL, Then [place] the Magnesium Replacement Protocol., Until [facility] 04/01/22 at 1611, Routine ropivacaine (NAROPIN) 0.2% injection (CANCELED) Intra-op PRN, Starting on Tue03/30/22 at 1107, Until Tue03/30/22 at 1445, Intra-op, Routine 1107 (Given - Provider: Cholo Dotson MD - Comment: 40ML INJECTION EACH HIP) Linked Groups Order Group 1: budesonide-formoterol (SYMBICORT) 160-4.5 MCG/ACT inhaler 2 puffJump to med 2 puff, Inhalation, BID (RT), First dose on Tue03/30/22 at 1900, Patient Should Rinse Mouth After Use., Until Discontinued, Routine, With Tx Panel? Yes And Inhalation Treatment D.B BID (,7) (CANCELED) Routine, BID (RT), First occurrence on Tue03/30/22 at 1900, Until Specified Group 2: hydroCHLOROthiazide (HydroDIURIL) tablet 25 mgJump to med 25 mg, Oral, Daily, First dose on Tue03/31/22 at 0800, Until Discontinued, Routine And lisinopril (PRINIVIL) tablet 20 mgJump to med 20 mg, Oral, Daily, First dose on Tue03/31/22 at 0800, Until Discontinued, Routine Group 3: albuterol HFA inhaler 2 puffJump to med 2 puff, Inhalation, Every 6 hours PRN (RT), Wheezing, Starting on Tue03/30/22 at 1627, Until Tue04/01/22 at 1611, Routine, With Tx Panel? Yes And Inhalation Treatment Q6H PRN (CANCELED) Routine, Every 6 hours PRN (RT), Starting on Tue03/30/22 at 1627, Until Specified Group 4: ondansetron (ZOFRAN) injection 4 mgJump to med 4 mg, Intravenous, Every 6 hours PRN, Nausea, Vomiting, Starting on Tue03/30/22 at 1624, Give if unable to tolerate oral., 2 mL, Until Tue04/01/22 at 1611, Post- op, Routine Or ondansetron (ZOFRAN) tablet 4 mgJump to med 4 mg, Oral, Every 6 hours PRN, Nausea, Vomiting, Starting on Tue03/30/22 at 1624, Until Tue04/01/22 at 1611, Post-op, Routine Group 5: oxyCODONE-acetaminophen (PERCOCET) 5-325 MG 2 tabletJump to med 2 tablet, Oral, Every 4 hours PRN, Severe pain, Starting on Tue03/31/22 at 1300, Maximum Recommended Dose for Adults of Acetaminophen = 4 gm Per Day., Until Tue04/01/22 at 1611, Post-op, Routine Or oxyCODONE-acetaminophen (PERCOCET) 7.5-325 MG 1 tabletJump to med 1 tablet, Oral, Every 4 hours PRN, Moderate pain, Starting on Tue03/31/22 at 1300, Maximum Recommended Dose for Adults of Acetaminophen = 4 gm Per Day., Until Tue04/01/22 at 1611, Post-op, Routine Group 6: potassium chloride SA (KLOR-CON) CR tablet 20-40 mEqJump to med 20-40 mEq, Oral, As needed per protocol PRN, Other, If Able To Take Oral Medications For Potassium Replacement, Starting on Tue03/30/22 at 1753, Do not use if serum creatinine is greater than 2, and notify physician. Serum Potassium Level 3.5 To 3.9 mg/dL:?Give 20 meq Now & 20 meq in Two Hours. Repeat Serum Potassium Level 2 Hours After Last Dose. Serum Potassium Level 3.1 To 3.4 mg/dL:?Give 40 meq Now & 20 meq in Two Hours. Repeat Serum Potassium Level 2 Hours After Last Dose. For Serum Potassium Level 3 mg/dL or Less :?Give 40 meq Now & 20 meq in Two Hours. Notify Physician. Repeat Serum Potassium Level 2 Hours After Last Dose and Draw Serum Magnesium Level. If Magnesium is Less Than 1.6 mg/dL, Then [place] the Magnesium Replacement Protocol., Until [facility] 04/01/22 at 1611, Routine Or potassium chloride 20 MEQ/15ML (10%) solution 20-40 mEqJump to med 20-40 mEq, Tube, As needed per protocol PRN, Other, If Able To Take Oral Medications For Potassium Replacement, Starting on Tue03/30/22 at 1753, Do not use if serum creatinine is greater than 2, and notify physician. Serum Potassium Level 3.5 To 3.9 mg/dL:?Give 20 meq Now & 20 meq in Two Hours. Repeat Serum Potassium Level 2 Hours After Last Dose. Serum Potassium Level 3.1 To 3.4 mg/dL:?Give 40 meq Now & 20 meq in Two Hours. Repeat Serum Potassium Level 2 Hours After Last Dose. For Serum Potassium Level 3 mg/dL or Less :?Give 40 meq Now & 20 meq in Two Hours. Notify Physician. Repeat Serum Potassium Level 2 Hours After Last Dose and Draw Serum Magnesium Level. If Magnesium is Less Than 1.6 mg/dL, Then [place] the Magnesium Replacement Protocol., 30 mL, Until [facility] 04/01/22 at 1611, Routine Or potassium chloride 10 mEq in 100 mL IVPBJump to med 10 mEq, Intravenous, at 100 mL/hr, As needed per protocol PRN, Other, If Patient is NPO or Symptomatic Give 10 meq Over 1 Hour??(Peripheral), Starting on Tue03/30/22 at 1753, Do not use if serum creatinine is greater than 2, and notify physician. For Serum Potassium Level 3.5 to 3.9 mg/dL - Give 10 meq over 1 Hour x 2 Doses. Repeat Serum Potassium Level 2 Hours After Last Dose. For Serum Potassium Level 3.1 to 3.4 mg/dL - Give 10 meq over 1 Hour x 3 Doses. Repeat Serum Potassium Level 2 Hours After Last Dose. For Serum Potassium Level 3 mg/dL or Less - Give 10 meq over 1 Hour x 3 Doses. Repeat Serum Potassium Level 2 Hours After Last Dose and Draw Serum Magnesium Level. If Serum Magnesium Level is Less Than 1.6 mg/dL, Then [place] the Magnesium Replacement Protocol., 100 mL, Administer over 60 Minutes, Until [facility] 04/01/22 at 1611, Routine Or potassium chloride 10 mEq in 50 mL IVPBJump to med 10 mEq, Intravenous, at 50 mL/hr, As needed per protocol PRN, Other, If Patient is NPO or Symptomatic Give 10 meq Over 1 Hour??(Central Line), Starting on Tue03/30/22 at 1753, Do not use if serum creatinine is greater than 2, and notify physician. For Serum Potassium Level 3.5 to 3.9 mg/dL - Give 10 meq over 1 Hour x 2 Doses. Repeat Serum Potassium Level 2 Hours After Last Dose. For Serum Potassium Level 3.1 to 3.4 mg/dL - Give 10 meq over 1 Hour x 3 Doses. Repeat Serum Potassium Level 2 Hours After Last Dose. For Serum Potassium Level 3 mg/dL or Less - Give 10 meq over 1 Hour x 3 Doses. Repeat Serum Potassium Level 2 Hours After Last Dose and Draw Serum Magnesium Level. If Serum Magnesium Level is Less Than 1.6 mg/dL, Then [place] the Magnesium Replacement Protocol., 50 mL, Administer over 60 Minutes, Until [facility] 04/01/22 at 1611, Routine documented in this encounter Care Teams [employer] Relationship Specialty Start Date End Date Keanu Brooks DO PCP - General Family Medicine 01/14/20 documented as of this encounter
--- OUTSIDE RECORDS SUMMARY | 2024-10-10 22:52 | XMS_ITS | Encounter Summary ---
Author Organization [facility] Address [address] [place] [address] Care Team Providers Care Radio Host Name Role Phone Keanu Brooks DO Primary Care Provider [phone] Encounter Details Date Type Department Care Team (Late st Contact Info) Description 01/18/2023 10:00 AM EDT Imaging/Diagnost ic [address] [place] [address] Coby Mcdonough APRN [address] [facility] [address] [place] [address] Social History Tobacco Use Types Packs/Day Years [...] of Assessment Author Yes 03/30/2022 4:27 PM WANDERT Kristy Love RN * Do You Have Serious Difficulty Walking or Climbing Stairs? Answer Date of Assessment Author No 03/30/2022 4:27 PM WANDERT Kristy Love RN * Do You Have [...] Visit [facility] - [address] [address] Damien Cárdenas, [employer] [address] [place] [address] documented as of this encounter Procedures Procedure Name Priority Date/Time Associated Diagnosis Comments XR KNEE 3 VWS LT Routine 01/18/2023 10:0 8 AM EDT Pain and swelling of right knee XR KNEE 3 VWS RT Routine 01/18/2023 10:0 8 AM EDT Acute pain of left knee XR SHOULDER COMP MIN 2 VW LT Routine 01/18/2023 10:08 AM EDT Acute pain of left shoulder documented in this encounter Results * XR Knee 3 Vws LT (01/18/2023 10:08 AM EDT) [facility] RAD WORKSTATION ID OBCRADNWK [id number] [facility] Anatom[facility] Laterality Modality Knee [facility] Radiographic Imaging 01/18/2023 11:3 1 AM EDT Narrative 01/18/2023 11:36 AM EDT REVIEWING YOUR TEST RESULTS IN [facility] IS NOT A SUBSTITUTE FOR DISCUSSING THOSE RESULTS WITH YOUR HEALTH CARE PROVIDER. PLEASE CONTACT YOUR PROVIDER VIA [facility] TO DISCUSS ANY QUESTIONS OR CONCERNS YOU MAY HAVE REGARDING THESE TEST RESULTS. RADIOLOGY REPORT FACILITY: ??[facility] UNIT/AGE/GENDER: P.ICCD ??OP ?AGE:62 Y ?SEX:M PATIENT NAME/: ??YOVANNY MALIN, Mary Ellen ?1960 UNIT NUMBER: ??[id number] ACCESSION NUMBER: ??[id number] EXAMINATION: 3-view left shoulder radiograph(s) DATE: 01/18/2023 ? HISTORY: Moderate left shoulder, right knee and left knee pain that started a couple days ago and is getting worse COMPARISON: None. TECHNIQUE: AP radiograph of the left shoulder in internal and external rotation as well as a scapular Y view lateral radiograph of the shoulder were obtained. FINDINGS: No acute fracture is seen. The joint spaces are intact. Mild to moderate chronic degenerative changes noted of the left acromioclavicular and glenohumeral joints, including joint space narrowing, marginal osteophyte formation, and subchondral cysts. There is no focal soft tissue abnormality or radiopaque foreign body. ? IMPRESSION: No acute fracture or dislocation. Mild-moderate degenerative changes noted of the left shoulder. EXAMINATION: 3-view right knee radiograph(s) DATE: 01/18/2023 ? HISTORY: Moderate left shoulder, right knee and left knee pain that started a couple days ago and is getting worse COMPARISON: None. TECHNIQUE: AP, PA flexion, and lateral radiograph(s) of the right knee. FINDINGS: No acute fracture is seen. The joint spaces are intact. Mild degenerative changes noted of the medial compartment. No suprapatellar joint effusion. There is no focal soft tissue abnormality or radiopaque foreign body. ? IMPRESSION: No acute osseous abnormality of the right knee. Mild degenerative changes noted in the medial compartment of the right knee. EXAMINATION: 3-view left knee radiograph(s) DATE: 01/18/2023 ? HISTORY: Moderate left shoulder, right knee and left knee pain that started a couple days ago and is getting worse COMPARISON: None. TECHNIQUE: AP, PA flexion, and lateral radiograph(s) of the left knee. FINDINGS: No acute fracture is seen. The joint spaces are intact. Moderate- severe tricompartmental degenerative changes noted of the left knee, most prominent in the medial compartment, including joint space narrowing and marginal osteophyte formation. No suprapatellar joint effusion. There is no focal soft tissue abnormality or radiopaque foreign body. ? IMPRESSION: No acute osseous abnormality of the left knee. Moderate-severe degenerative changes of the left knee, as detailed above. Dictated by: Jt Laurent M.D. Images and Report reviewed and interpreted by: Jt Laurent M.D. <PS><Electronically signed by: Jt Laurent M.D.> 01/18/2023 1135 1131 1131 Procedure Note Jt Laurent MD - 01/18/2023 REVIEWING YOUR TEST RESULTS IN [facility] IS NOT A SUBSTITUTE FORDISCUSSING THOSE RESULTS WITH YOUR HEALTH CARE PROVIDER. PLEASE CONTACT YOUR PROVIDER VIA [facility] TO DISCUSS ANY QUESTIONS ORCONCERNS YOU MAY HAVE REGARDING THESE TEST RESULTS. RADIOLOGY REPORT FACILITY: [facility] UNIT/AGE/GENDER: [facility] OP AGE:62 Y SEX:M PATIENT NAME/: MACHOYOVANNYMary Ellen BAKER 1960 UNIT NUMBER: [id number] ACCESSION NUMBER: [id number] EXAMINATION: 3-view left shoulder radiograph(s) DATE: 01/18/2023 HISTORY: Moderate left shoulder, right knee and left knee pain thatstarted a couple days ago and is getting worse COMPARISON: None. TECHNIQUE: AP radiograph of the left shoulder in internal and externalrotation as well as a scapular Y view lateral radiograph of the shoulderwere obtained. FINDINGS: No acute fracture is seen. The joint spaces are intact. Mild tomoderate chronic degenerative changes noted of the left acromioclavicularand glenohumeral joints, including joint space narrowing, marginalosteophyte formation, and subchondral cysts. There is no focal soft tissue abnormality or radiopaque foreignbody. IMPRESSION: No acute fracture or dislocation. Mild-moderate degenerative changes notedof the left shoulder. EXAMINATION: 3-view right knee radiograph(s) DATE: 01/18/2023 HISTORY: Moderate left shoulder, right knee and left knee pain thatstarted a couple days ago and is getting worse COMPARISON: None. TECHNIQUE: AP, PA flexion, and lateral radiograph(s) of the right knee. FINDINGS: No acute fracture is seen. The joint spaces are intact. Milddegenerative changes noted of the medial compartment. No suprapatellarjoint effusion. There is no focal soft tissue abnormality or radiopaqueforeign body. IMPRESSION: No acute osseous abnormality of the right knee. Mild degenerative changesnoted in the medial compartment of the right knee. EXAMINATION: 3-view left knee radiograph(s) DATE: 01/18/2023 HISTORY: Moderate left shoulder, right knee and left knee pain thatstarted a couple days ago and is getting worse COMPARISON: None. TECHNIQUE: AP, PA flexion, and lateral radiograph(s) of the left knee. FINDINGS: No acute fracture is seen. The joint spaces are intact.Moderate-severe tricompartmental degenerative changes noted of the leftknee, most prominent in the medial compartment, including joint spacenarrowing and marginal osteophyte formation. No suprapatellar joint effusion. There is no focal soft tissue abnormalityor radiopaque foreign body. IMPRESSION: No acute osseous abnormality of the left knee. Moderate-severedegenerative changes of the left knee, as detailed above. Dictated by: Jt Laurent M.D. Images and Report reviewed and interpreted by: Jt Laurent M.D. <PS><Electronically signed by: Jt Laurent M.D.> 01/18/2023 1135 1131 1131 Coby Ceasar BECKWITH IMG DIAGNOSTIC IMAGING ORDERA BLES Final Result * XR Knee 3 Vws RT (01/18/2023 10:08 AM EDT) [facility] RAD WORKSTATION ID OBCRADNWK [id number] [facility] Anatomical Region Laterality Modality Knee [facility] Radiographic Imaging 01/18/2023 11:3 1 AM EDT Narrative 01/18/2023 11:36 AM EDT REVIEWING YOUR TEST RESULTS IN [facility] IS NOT A SUBSTITUTE FOR DISCUSSING THOSE RESULTS WITH YOUR HEALTH CARE PROVIDER. PLEASE CONTACT YOUR PROVIDER VIA [facility] TO DISCUSS ANY QUESTIONS OR CONCERNS YOU MAY HAVE REGARDING THESE TEST RESULTS. RADIOLOGY REPORT FACILITY: ??[facility] UNIT/AGE/GENDER: P.ICCD ??OP ?AGE:62 Y ?SEX:M PATIENT NAME/: ??, YOVANNY, D ?1960 UNIT NUMBER: ??[id number] ACCESSION NUMBER: ??[id number] EXAMINATION: 3-view left shoulder radiograph(s) DATE: 01/18/2023 ? HISTORY: Moderate left shoulder, right knee and left knee pain that started a couple days ago and is getting worse COMPARISON: None. TECHNIQUE: AP radiograph of the left shoulder in internal and external rotation as well as a scapular Y view lateral radiograph of the shoulder were obtained. FINDINGS: No acute fracture is seen. The joint spaces are intact. Mild to moderate chronic degenerative changes noted of the left acromioclavicular and glenohumeral joints, including joint space narrowing, marginal osteophyte formation, and subchondral cysts. There is no focal soft tissue abnormality or radiopaque foreign body. ? IMPRESSION: No acute fracture or dislocation. Mild-moderate degenerative changes noted of the left shoulder. EXAMINATION: 3-view right knee radiograph(s) DATE: 01/18/2023 ? HISTORY: Moderate left shoulder, right knee and left knee pain that started a couple days ago and is getting worse COMPARISON: None. TECHNIQUE: AP, PA flexion, and lateral radiograph(s) of the right knee. FINDINGS: No acute fracture is seen. The joint spaces are intact. Mild degenerative changes noted of the medial compartment. No suprapatellar joint effusion. There is no focal soft tissue abnormality or radiopaque foreign body. ? IMPRESSION: No acute osseous abnormality of the right knee. Mild degenerative changes noted in the medial compartment of the right knee. EXAMINATION: 3-view left knee radiograph(s) DATE: 01/18/2023 ? HISTORY: Moderate left shoulder, right knee and left knee pain that started a couple days ago and is getting worse COMPARISON: None. TECHNIQUE: AP, PA flexion, and lateral radiograph(s) of the left knee. FINDINGS: No acute fracture is seen. The joint spaces are intact. Moderate- severe tricompartmental degenerative changes noted of the left knee, most prominent in the medial compartment, including joint space narrowing and marginal osteophyte formation. No suprapatellar joint effusion. There is no focal soft tissue abnormality or radiopaque foreign body. ? IMPRESSION: No acute osseous abnormality of the left knee. Moderate-severe degenerative changes of the left knee, as detailed above. Dictated by: Jt Laurent M.D. Images and Report reviewed and interpreted by: Jt Laurent M.D. <PS><Electronically signed by: Jt Laurent M.D.> 01/18/2023 1135 1131 1131 Procedure Note Jt Laurent MD - 01/18/2023 REVIEWING YOUR TEST RESULTS IN [facility] IS NOT A SUBSTITUTE FORDISCUSSING THOSE RESULTS WITH YOUR HEALTH CARE PROVIDER. PLEASE CONTACT YOUR PROVIDER [facility] TO DISCUSS ANY QUESTIONS ORCONCERNS YOU MAY HAVE REGARDING THESE TEST RESULTS. RADIOLOGY REPORT FACILITY: [facility] AGE:62 Y SEX:M PATIENT NAME/: YOVANNY MALIN D 1960 UNIT NUMBER: [id number] ACCESSION NUMBER: [id number] EXAMINATION: 3-view left shoulder radiograph(s) DATE: 01/18/2023 HISTORY: Moderate left shoulder, right knee and left knee pain thatstarted a couple days ago and is getting worse COMPARISON: None. TECHNIQUE: AP radiograph of the left shoulder in internal and externalrotation as well as a scapular Y view lateral radiograph of the shoulderwere obtained. FINDINGS: No acute fracture is seen. The joint spaces are intact. Mild tomoderate chronic degenerative changes noted of the left acromioclavicularand glenohumeral joints, including joint space narrowing, marginalosteophyte formation, and subchondral cysts. There is no focal soft tissue abnormality or radiopaque foreignbody. IMPRESSION: No acute fracture or dislocation. Mild-moderate degenerative changes notedof the left shoulder. EXAMINATION: 3-view right knee radiograph(s) DATE: 01/18/2023 HISTORY: Moderate left shoulder, right knee and left knee pain thatstarted a couple days ago and is getting worse COMPARISON: None. TECHNIQUE: AP, PA flexion, and lateral radiograph(s) of the right knee. FINDINGS: No acute fracture is seen. The joint spaces are intact. Milddegenerative changes noted of the medial compartment. No suprapatellarjoint effusion. There is no focal soft tissue abnormality or radiopaqueforeign body. IMPRESSION: No acute osseous abnormality of the right knee. Mild degenerative changesnoted in the medial compartment of the right knee. EXAMINATION: 3-view left knee radiograph(s) DATE: 01/18/2023 HISTORY: Moderate left shoulder, right knee and left knee pain thatstarted a couple days ago and is getting worse COMPARISON: None. TECHNIQUE: AP, PA flexion, and lateral radiograph(s) of the left knee. FINDINGS: No acute fracture is seen. The joint spaces are intact.Moderate-severe tricompartmental degenerative changes noted of the leftknee, most prominent in the medial compartment, including joint spacenarrowing and marginal osteophyte formation. No suprapatellar joint effusion. There is no focal soft tissue abnormalityor radiopaque foreign body. IMPRESSION: No acute osseous abnormality of the left knee. Moderate-severedegenerative changes of the left knee, as detailed above. Dictated by: Jt Laurent M.D. Images and Report reviewed and interpreted by: Jt Laurent M.D. <PS><Electronically signed by: Jt Laurent M.D.> 01/18/2023 1135 1131 1131 Coby Ceasar BECKWITH IMG DIAGNOSTIC IMAGING ORDERA BLES Final Result * XR Shoulder Comp Min 2 Vw LT (01/18/2023 10:08 AM EDT) Pathologist [facility] RAD WORKSTATION ID OBCRADNWK S01 [facility] Anatomical Region Laterality Modality Shoulder [facility] Radiographic Imaging 01/18/2023 11:3 1 AM EDT Narrative 01/18/2023 11:36 AM EDT REVIEWING YOUR TEST RESULTS IN [facility] IS NOT A SUBSTITUTE FOR DISCUSSING THOSE RESULTS WITH YOUR HEALTH CARE PROVIDER. PLEASE CONTACT YOUR PROVIDER VIA [facility] TO DISCUSS ANY QUESTIONS OR CONCERNS YOU MAY HAVE REGARDING THESE TEST RESULTS. RADIOLOGY REPORT FACILITY: ??[facility] UNIT/AGE/GENDER: P.[facility] ??OP ?AGE:62 Y ?SEX:M PATIENT NAME/: ??, YOVANNY, Mary Ellen ?1960 UNIT NUMBER: ??[id number] ACCESSION NUMBER: ??[id number] EXAMINATION: 3-view left shoulder radiograph(s) DATE: 01/18/2023 ? HISTORY: Moderate left shoulder, right knee and left knee pain that started a couple days ago and is getting worse COMPARISON: None. TECHNIQUE: AP radiograph of the left shoulder in internal and external rotation as well as a scapular Y view lateral radiograph of the shoulder were obtained. FINDINGS: No acute fracture is seen. The joint spaces are intact. Mild to moderate chronic degenerative changes noted of the left acromioclavicular and glenohumeral joints, including joint space narrowing, marginal osteophyte formation, and subchondral cysts. There is no focal soft tissue abnormality or radiopaque foreign body. ? IMPRESSION: No acute fracture or dislocation. Mild-moderate degenerative changes noted of the left shoulder. EXAMINATION: 3-view right knee radiograph(s) DATE: 01/18/2023 ? HISTORY: Moderate left shoulder, right knee and left knee pain that started a couple days ago and is getting worse COMPARISON: None. TECHNIQUE: AP, PA flexion, and lateral radiograph(s) of the right knee. FINDINGS: No acute fracture is seen. The joint spaces are intact. Mild degenerative changes noted of the medial compartment. No suprapatellar joint effusion. There is no focal soft tissue abnormality or radiopaque foreign body. ? IMPRESSION: No acute osseous abnormality of the right knee. Mild degenerative changes noted in the medial compartment of the right knee. EXAMINATION: 3-view left knee radiograph(s) DATE: 01/18/2023 ? HISTORY: Moderate left shoulder, right knee and left knee pain that started a couple days ago and is getting worse COMPARISON: None. TECHNIQUE: AP, PA flexion, and lateral radiograph(s) of the left knee. FINDINGS: No acute fracture is seen. The joint spaces are intact. Moderate- severe tricompartmental degenerative changes noted of the left knee, most prominent in the medial compartment, including joint space narrowing and marginal osteophyte formation. No suprapatellar joint effusion. There is no focal soft tissue abnormality or radiopaque foreign body. ? IMPRESSION: No acute osseous abnormality of the left knee. Moderate-severe degenerative changes of the left knee, as detailed above. Dictated by: Jt Laurent M.D. Images and Report reviewed and interpreted by: Jt Laurent M.D. <PS><Electronically signed by: Jt Laurent M.D.> 01/18/2023 1135 1131 1131 Procedure Note Jt Laurent MD - 01/18/2023 REVIEWING YOUR TEST RESULTS IN [facility] IS NOT A SUBSTITUTE FORDISCUSSING THOSE RESULTS WITH YOUR HEALTH CARE PROVIDER. PLEASE CONTACT YOUR PROVIDER VIA [facility] TO DISCUSS ANY QUESTIONS ORCONCERNS YOU MAY HAVE REGARDING THESE TEST RESULTS. RADIOLOGY REPORT FACILITY: [facility] UNIT/AGE/GENDER: P.[facility] OP AGE:62 Y SEX:M PATIENT NAME/: MACHOYOVANNYMary Ellen BAKER 1960 UNIT NUMBER: [id number] ACCESSION NUMBER: [id number] EXAMINATION: 3-view left shoulder radiograph(s) DATE: 01/18/2023 HISTORY: Moderate left shoulder, right knee and left knee pain thatstarted a couple days ago and is getting worse COMPARISON: None. TECHNIQUE: AP radiograph of the left shoulder in internal and externalrotation as well as a scapular Y view lateral radiograph of the shoulderwere obtained. FINDINGS: No acute fracture is seen. The joint spaces are intact. Mild tomoderate chronic degenerative changes noted of the left acromioclavicularand glenohumeral joints, including joint space narrowing, marginalosteophyte formation, and subchondral cysts. There is no focal soft tissue abnormality or radiopaque foreignbody. IMPRESSION: No acute fracture or dislocation. Mild-moderate degenerative changes notedof the left shoulder. EXAMINATION: 3-view right knee radiograph(s) DATE: 01/18/2023 HISTORY: Moderate left shoulder, right knee and left knee pain thatstarted a couple days ago and is getting worse COMPARISON: None. TECHNIQUE: AP, PA flexion, and lateral radiograph(s) of the right knee. FINDINGS: No acute fracture is seen. The joint spaces are intact. Milddegenerative changes noted of the medial compartment. No suprapatellarjoint effusion. There is no focal soft tissue abnormality or radiopaqueforeign body. IMPRESSION: No acute osseous abnormality of the right knee. Mild degenerative changesnoted in the medial compartment of the right knee. EXAMINATION: 3-view left knee radiograph(s) DATE: 01/18/2023 HISTORY: Moderate left shoulder, right knee and left knee pain thatstarted a couple days ago and is getting worse COMPARISON: None. TECHNIQUE: AP, PA flexion, and lateral radiograph(s) of the left knee. FINDINGS: No acute fracture is seen. The joint spaces are intact.Moderate-severe tricompartmental degenerative changes noted of the leftknee, most prominent in the medial compartment, including joint spacenarrowing and marginal osteophyte formation. No suprapatellar joint effusion. There is no focal soft tissue abnormalityor radiopaque foreign body. IMPRESSION: No acute osseous abnormality of the left knee. Moderate-severedegenerative changes of the left knee, as detailed above. Dictated by: Jt Laurent M.D. Images and Report reviewed and interpreted by: Jt Laurent M.D. <PS><Electronically signed by: Jt Laurent M.D.> 01/18/2023 1135 1131 1131 Coby Mcdonough APRN IMG DIAGNOSTIC IMAGING ORDERA BLES Final Result documented in this encounter Visit Diagnoses Not on filedocumented in this encounter Care Teams Radio Host Relationship Specialty Start Date End Date Keanu Brooks DO PCP - General Family Medicine 01/14/20 documented as of this encounter
--- OUTSIDE RECORDS SUMMARY | 2024-10-10 22:52 | XMS_ITS | Encounter Summary ---
Author Organization Formerly [facility] Address [address] [place] [address] Care Team Providers Care Aviation Maintenance Instructor Name Role Phone Keanu Brooks Ar Primary Care Provider [phone] Encounter Details Date Type Department Care Team (Late st Contact Info) Description 03/29/2023 10:30 AM EDT Telemedicine [facility] [address] [facility] [address] [place] [address] Edd Arnett MD [address] [place], [place] [id number] Obstructive sleep apnea (Primary Dx) Social History Tobacco Use Types [...] Kristy Love RN documented in this encounter Progress Notes * Edd Arnett MD - 03/29/2023 10:52 AM EDT Telehealth Note Date of service: 03/29/2023 Patient presents today for video visit from home. Patient was evaluated today using audio-visual telemedicine technology. Verbal consent was obtained to conduct the visit by audiovisual platform Patient Identification: Name: Yovanny Steve Age: 62 yr/o Sex: male : 1960 Primary Care Physician: Keanu Brooks DO Last office visit: 04/16/2021 (I reviewed this note) - saw Etta Cuellar APRN for TERE Sleep Testin. HST on 07/09/2017, AHI of 6 2. Currently on 12 cm H2O Chief complaint: follow up of moderate TERE Interim History: [place] sleepiness scale: 3/24 1) TERE - Since the last visit patient reports poor compliance with PAP therapy. Recommend increasing usage or consider formal mask fitting. PAP Data: Time frame: 02/26/2023- 03/27/2023 Compliance 33.3 % Average use on days used: 6hrs 6 min Percent of days with usage greater than or equal to 4 hours: 20% PAP range : 12 cm H2O Average 90% pressure: 12 cmH2O Leak: <1 minutes Average AHI 0.9 events/hr DME: [facility] - machine is Edge [employer] DreamStation 2 Review of Systems: Negative for chest pain, fever, cough, SOA, abdominal pain. PMHx, FH, SH reviewed and pertinent changes are: unchanged from last office visit (date above) Allergies and Medications Allergies: Allergies as of 03/29/2023 Review status set to Review Complete by Amaris Quintana on 01/18/2023 No Known Allergies Current Medications: Outpatient Medications as of 03/29/2023 Medication Sig Dispense Refill ??? albuterol (PROVENTIL HFA;VENTOLIN HFA) 108 (90 BASE) MCG/ACT inhaler Inhale 2 puffs into the lungs every 6 (six) hours as needed for Wheezing . ??? allopurinol (ZYLOPRIM) 300 MG tablet Take 300 mg by mouth daily . ??? apixaban (ELIQUIS) 2.5 MG tablet Take 1 tablet by mouth 2 (two) times daily. 60 tablet 0 ??? fexofenadine (GABBIE) 180 MG tablet Take 180 mg by mouth daily . ??? fluticasone (FLONASE) 50 MCG/ACT nasal spray Instill 2 sprays into nose 2 (two) times daily as needed for Allergies. ??? lisinopril-hydrochlorothiazide (PRINZIDE,ZESTORETIC) 20-25 MG per tablet Take 1 tablet by mouthdaily. ??? mometasone furo-formoterol (DULERA) 200-5 MCG/ACT AERO inhaler Inhale 2 puffs into the lungs 2 (two) times daily . ??? Multiple Vitamin (MULTIVITAMIN ADULT PO) Take 1 tablet by mouth daily. ??? sertraline (ZOLOFT) 25 MG tablet Take 25 mg by mouth daily as needed. ??? testosterone cypionate (DEPOTESTOTERONE CYPIONATE) 200 MG/ML [...] capsule Take 100 Units by mouth daily. Physical Exam: The visit was conducted via audiovisual telecommunications platform. Exam was visual only. General: Alert. Cooperative. No obvious acute distress. Head: Normocephalic. Symmetrical. Atraumatic. Eyes: Sclera grossly clear. Normal EOM. Ears: No obvious deformities. Pulm: Respirations regular and unlabored. Psychiatric: Normal mood and affect. Patient Active Problem List Diagnosis Date Noted ??? Stage 3a chronic kidney disease 03/31/2022 ??? Primary osteoarthritis of hips, bilateral 03/30/2022 ??? Status post total replacement of both hips 03/30/22 03/30/2022 ??? Sleep apnea 01/14/2020 ??? Asthma ??? Hypertension ??? ED (erectile dysfunction) Assessment and Plan: 1. Obstructive sleep apnea - established and not optimally controlled 1. I saw Yovanny Steve today in follow for their sleep apnea. Patient reports improvement on therapy. 2. Advised to continue therapy 3. Continue PAP as prescribed. 4. Script for PAP supplies RTC in 6 months, or sooner if new symptoms or issues arise. Edd Arnett MD, [facility] Sleep Medicine [facility] This document has been electronically signed by Edd Arnett on March 29, 2023 CC: Keanu Brooks DO Johnson, Robert Ryan, DO documented in this encounter Plan of Treatment Upcoming Encounters Date Type Department Care Team (Late st Contact Info) Description 01/24/2025 1:40 PM EDT Office Visit [facility] [facility] - [address] [address] Damien Cárdenas, TANG [address] [place] [address] documented as of this encounter Visit Diagnoses Diagnosis Obstructive sleep apnea- Primary Obstructive sleep apnea (adult) (pediatric) documented in this encounter Care Teams Aviation Maintenance Instructor Relationship Specialty Start Date End Date Keanu Brooks DO PCP - General Family Medicine 01/14/20 documented as of this encounter
--- OUTSIDE RECORDS SUMMARY | 2024-10-10 22:52 | XMS_ITS | Encounter Summary ---
Author Organization [facility] [place] [address] Care Team Providers Care Leather Shaver Name Role Phone Keanu Brooks DO Primary Care Provider [phone] Reason for Visit * Auth/Cert Specialty Diagnoses / Procedures Referred By Moshe denis Referred To Contact Diagnoses Arthritis of both hips [M16.0] Procedures TOTAL HIP ARTHROPLASTY ANTERIOR APPROACH (PLANNED OBSERVATION) Referral ID Status Reason Start Date Expiration Date Visits Re quested Visits Authorized [id number] 1 1 Encounter Details Date Type Department Care Team (Late st Contact Info) Description 03/30/2022 10:29 AM EDT Anesthesia Event [facility] Periop Services [address] [place] [address] Gayla Soliz MD [address] [place] [address] Percy Raines CRNA [address] [place] [address] [address] [place] [id number] Anesthesia Record Procedure Summary Procedure Name Responsible Anesthesiologist Anesthesia Start Time Anesthesia Stop Time TOTAL HIP ARTHROPLASTY ANTERIOR APPROACH (PLANNED OBSERVATION) CPT 90250 (Bilateral: Hip) Gayla Soliz MD 03/30/22 1029 03/30/22 1422 Events Date Time Event Comment 03/30/2022 0857 1029 An Start 1029 An Start Data 1033 An Induction 1035 An Intubation 1055 Quick Note Incision, LEFT 1259 Quick Note Incision, RIGHT 1402 An Emergence 1414 An Extubation 1416 an stop data 1422 Anesthesia Handoff Report gi mallika to CARTRIDGE LOADER. Pt SV, adequate respirations, 4L per n/c, and follows commands. 1422 An Stop Meds Name Total glycopyrrolate 0.2 mg/mL 0.2 mg lidocaine PF 2% inj 80 mg rocuronium 10mg/ml 120 mg propofol 10mg/ml inj 150 mg ketamine 100 mg/2 mL syringe 50 mg dexmedetomidine (PRECEDEX) 400 mcg in so dium chloride 0.9 % 100 mL drip 28 mcg fentaNYL 0.05 mg/mL 200 mcg hydromorphone 2 mg/mL 1 mg phenylephrine (EUGENIA-SYNEPHRINE) 0.1 mg/mL in dextrose 5 % 100 mL drip 2,570 mcg tranexamic acid (CYKLOKAPRON) 1000 mg/60 mL ivpb infusion 1 g tranexamic acid (CYKLOKAPRON) 1000 mg/60 mL ivpb infusion 1 g magnesium sulfate 1 g in dextrose 5 % 10 0 mL IVPB 2 mL albumin human bottle 5% 750 mL dexamethasone 4mg/ml inj 4 mg ondansetron inj 4 mg sugammadex (BRIDION) 200 mg/2 mL inj 200 mg phenylephrine inj 100 mcg lactated ringers infusion 2,300 mL * Agents Name O2 Fi Isoflurane Fi Desflurane Et Isoflurane Et Desflurane * Blood No blood administrations on file. Lines, Drains, and Airways Type Details Placement Removal Incision 03/30/22; Hip; Anter ior, Left; N/A 03/30/22 0000 by Eloisa Phillips RN Incision 03/30/22; Hip; Anter ior, Right; N/A 03/30/22 0000 by Eloisa Phillips RN ADULT Peripheral IV Size: 18 G; Orientat ion: Anterior, Distal, Right; Location: Forearm; Site Prep: Chlorhexidine ; Local Anesthetic: Injectable; Inserted by: BELINDA Khalil; Insertion attempts: 1; Patient Tolerance: Tolerated well; Removal Reason: Per order; Catheter Removed Intact: Yes 03/30/22 0850 by Simran Hagan RN 04/01/22 1400 by Nereyda Mcdonough RN ADULT Peripheral IV Size: 18 G; Orientat ion: Left; Location: Forearm; Site Prep: Alcohol; Local Anesthetic: None; Inserted by: CHAYO BUTTERFIELD; Insertion attempts: 1; Patient Tolerance: Tolerated well; Removal Reason: Per order; Catheter Removed Intact: Yes 03/30/22 0950 by Beena Coyne CRNA 04/01/22 1400 by Nereyda Mcdonough RN ETT Location: Mouth; Siz e: 7.5; Cuff: Cuffed; Secured@:22 cm (AT LIP); Blade: Other (comment); Grade View: 1; Devices used: Stylet, Shepherd 4; Technique: Atraumatic, Cricoid pressure, Easy Mask Ventilation; Post Intubation check: Bilateral breath sounds, End tidal CO2; Dentition: Intact (DENTITION SAME PREOP.); Insertion attempts: 1; Comments: 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 03/30/22 1035 by Beena Coyne CRNA 03/30/22 1416 by Judith Harris CRNA documented in this encounter Social History Tobacco [...] AM EDT documented as of this encounter Functional Status * Patient's Vision Adequate to Safely Complete Daily Activities Answer Date of Assessment Author Yes 02/16/2013 1:00 PM EDT Delmer Ceja RN documented as of this encounter Mental Status * Because of a Physical, Mental or Emotional Problem, Do You Have Difficulty Doing Errands Alone Suchas Visiting a Doctor's Office or Shopping? Answer Entry Date Author No 03/30/2022 4:27 PM EDT Kristy Love RN documented in this encounter OR Notes * Anesthesia Postprocedure Evaluation - Judith Harris CRNA - 03/30/2022 2:22 PM EDT Post-Anesthesia Evaluation Patient: Yovanny Steve Patient is [...] adequately controlled. Vitals Value Taken Time BP 99/56 03/30/22 1422 Temp 37.7 ??C (99.9 ??F) 03/30/22 1422 Pulse 102 03/30/22 1422 Resp 18 03/30/22 1422 SpO2 96 % 03/30/22 1422 Temp src Temporal 03/30/22 1422 Anesthesia complications or comments: None * Anesthesia Preprocedure Evaluation - Laney Sutton MD - 03/30/2022 8:56 AM EDT Relevant Problems OTHER (+) Asthma (+) Hypertension (+) Sleep apnea Review of Systems Patient summary reviewed. nursing notes reviewed. Allergies Reviewed: Patient has no known allergies. No history of anesthetic complications. Pulmonary: Positive (+) for asthma and sleep apnea. Asthma: Controlled. Sleep Apnea: CPAP. Neuro/Psych: Negative for neurological and psychiatric complications. Cardiovascular: Positive (+) for hypertension. Hypertension: Controlled. Endo: Negative for endocrinological complications. GI: Negative for GI complications. Musculoskeletal: Positive (+) for cervical spine disease. Physical Exam Airway: Mallampati: II TM distance: >3 FB Neck ROM: Full Anesthesia Plan ASA: 2 Anesthesia Plan: general Anesthesia Plan Comments: Discussed with patient risk of anesthesia including but not limited to problems with heart, lungs, allergic reactions, corneal abrasions, sore throat, and chipped or loose teeth, injury to structures of mouth agrees and wants to proceed Induction: Intravenous Maintenance: Inhalation Lines: PIV and BIS Premedication: Antiemetics, Reflux Meds, Midazolam and Scopalamine Patch Planned Post Procedure Care: PACU and Outpatient Anesthetic Plan and Risks discussed with: Patient. Risk and benefits of anesthesia explained. Informed consent obtained. Plan discussed with: ARTIFICIAL BREEDING RANCH SUPERVISOR documented in this encounter Plan of Treatment Upcoming Encounters Date Type Department Care Team (Late st Contact Info) Description 01/24/2025 1:40 PM EDT Office Visit [facility] - [place] [address] [facility] [address] [place] [address] Damien Cárdenas, TANG [address] [place] [address] documented as of this encounter Visit Diagnoses Not on filedocumented in this encounter Administered Medications Inactive Administered Medications - up to 3 most recent administrations Medication Order MAR Action Action Date Dose Rate Site albumin human 5% Intravenous, PRN, Starting on Tue03/30/22 at 1128, Until Tue03/30/22 at 1533, Anesthesia Intra-op, Routine Given 03/30/2022 2:11 PM EDT 250 mLs Given 03/30/2022 11:42 AM EDT 250 mLs Given 03/30/2022 11:28 AM EDT 250 mLs dexamethasone (DECADRON) injection Intravenous, PRN, Starting on Tue03/30/22 at 1402, Administer over 5 Minutes, Until Tue03/30/22 at 1533, Anesthesia Intra-op, Routine Given 03/30/2022 2:02 PM EDT 4 mg dexmedetomidine (PRECEDEX) 400 mcg in sodium chloride 0.9 % 100 mL drip Intravenous, Continuous PRN, Starting on Tue03/30/22 at 1033, 100 mL, Until Tue03/30/22 at 1533, Anesthesia Intra-op, Routine Bolus 03/30/2022 12:55 PM EDT 8 mcg Bolus 03/30/2022 10:59 AM EDT 8 mcg New Bag 03/30/2022 10:33 AM EDT 12 mcg fentaNYL (PF) (SUBLIMAZE) injection Intravenous, PRN, Starting on Tue03/30/22 at 1033, Until Tue03/30/22 at 1533, Anesthesia Intra-op, Routine Given 03/30/2022 1:27 PM EDT 50 mcg Given 03/30/2022 12:55 PM EDT 50 mcg Given 03/30/2022 10:33 AM EDT 100 mcg glycopyrrolate (ROBINUL) injection Intravenous, PRN, Starting on Tue03/30/22 at 1033, Until Tue03/30/22 at 1533, Anesthesia Intra-op, Routine Given 03/30/2022 10:33 AM EDT 0.2 mg HYDROmorphone (DILAUDID) injection Intravenous, PRN, Starting on Tue03/30/22 at 1045, Until Tue03/30/22 at 1533, Anesthesia Intra-op, Routine Given 03/30/2022 10:59 AM EDT 0.4 mg Given 03/30/2022 10:45 AM EDT 0.6 mg ketamine (KETALAR) injection Intravenous, PRN, Starting on Tue03/30/22 at 1033, Until Tue03/30/22 at 1533, Anesthesia Intra-op, Routine Given 03/30/2022 12:30 PM EDT 25 mg Given 03/30/2022 10:33 AM EDT 25 mg lactated ringers infusion Intravenous, at 25 mL/hr, Continuous, Starting on Tue03/30/22 at 0815, KVO, 1,000 mL, Until Tue03/30/22 at 1619, Pre-op, Routine New Bag 03/30/2022 1:27 PM EDT New Bag 03/30/2022 11:06 AM EDT Restarted 03/30/2022 10:40 AM EDT lidocaine-PF (XYLOCAINE) 2 % injectable Intravenous, PRN, Starting on Tue03/30/22 at 1033, Until Tue03/30/22 at 1533, Anesthesia Intra-op, Routine Given 03/30/2022 10:33 AM EDT 80 mg magnesium sulfate 1 g in dextrose 5 % 100 mL IVPB Intravenous, Continuous PRN, Starting on Tue03/30/22 at 1107, 102 mL, Until Tue03/30/22 at 1533, Anesthesia Intra-op, Routine New Bag 03/30/2022 11:07 AM EDT 2 mLs ondansetron (ZOFRAN) injection Intravenous, PRN, Starting on Tue03/30/22 at 1402, Until Tue03/30/22 at 1533, Anesthesia Intra-op, Routine Given 03/30/2022 2:02 PM EDT 4 mg phenylephrine (EUGENIA-SYNEPHRINE) 0.1 mg/mL in dextrose 5 % 100 mL drip Intravenous, Continuous PRN, Starting on Tue03/30/22 at 1135, 100 mL, Until Tue03/30/22 at 1533, Anesthesia Intra-op, Routine Rate Change 03/30/2022 12:59 PM EDT 20 mcg/min 12 mL/hr Rate Change 03/30/2022 12:54 PM EDT 30 mcg/min 18 mL/hr Rate Change 03/30/2022 12:41 PM EDT 40 mcg/min 24 mL/hr phenylephrine (EUGENIA-SYNEPHRINE) injection Intravenous, PRN, Starting on Tue03/30/22 at 1410, Until Tue03/30/22 at 1533, Anesthesia Intra-op, Routine Given 03/30/2022 2:10 PM EDT 100 mcg propofol (DIPRIVAN) 200 MG/20ML injection Intravenous, PRN, Starting on Tue03/30/22 at 1033, Until Tue03/30/22 at 1533, Anesthesia Intra-op, Routine Given 03/30/2022 10:33 AM EDT 150 mg rocuronium (ZEMURON) injection Intravenous, PRN, Starting on Tue03/30/22 at 1033, Until Tue03/30/22 at 1533, Anesthesia Intra-op, Routine Given 03/30/2022 12:55 PM EDT 20 mg Given 03/30/2022 12:30 PM EDT 20 mg Given 03/30/2022 11:30 AM EDT 30 mg sugammadex (BRIDION) injection Intravenous, PRN, Starting on Tue03/30/22 at 1402, Until Tue03/30/22 at 1533, Anesthesia Intra-op, Routine Given 03/30/2022 2:02 PM EDT 200 mg tranexamic acid (CYKLOKAPRON) 1000 mg/60 mL ivpb infusion 1,000 mg (1 g), Intravenous, at 120 mL/hr, Once, On Tue03/30/22 at 0815, For 1 dose, Complete infusion 20 minutes prior to incision (hip) or tourniquet inflation (knee)., 60 mL, Administer over 30 Minutes, Pre-op, RoutineIndications:Orthopedic Joint Procedures-Hip Given 03/30/2022 10:37 AM EDT 1 g tranexamic acid (CYKLOKAPRON) 1000 mg/60 mL ivpb infusion 1,000 mg (1 g), Intravenous, at 120 mL/hr, Once, On Tue03/30/22 at 1115, For 1 dose, 60 mL, Administer over 30 Minutes, Intra-op, RoutineIndications:Orthopedic Joint Procedures-Hip Given 03/30/2022 12:53 PM EDT 1 g documented in this encounter Care Teams Leather Shaver Relationship Specialty Start Date End Date Keanu Brooks DO PCP - General Family Medicine 01/14/20 documented as of this encounter
--- OUTSIDE RECORDS SUMMARY | 2024-10-10 22:52 | XMS_ITS | Encounter Summary ---
Author Organization [facility] Address [facility] [place] [address] Care Team Providers Care Cottage Cheese Maker Name Role Phone Keanu Brooks DO Primary Care Provider [phone] Reason for Visit * Auth/Cert Specialty Diagnoses / Procedures Referred By Moshe denis Referred To Contact Diagnoses Arthritis of both hips [M16.0] Procedures TOTAL HIP ARTHROPLASTY ANTERIOR APPROACH (PLANNED OBSERVATION) Referral ID Status Reason Start Date Expiration Date Visits Re quested Visits Authorized [id number] 1 1 Encounter Details Date Type Department Care Team (Late st Contact Info) Description 03/30/2022 11:15 AM EDT - 03/30/2022 3:14 PM EDT Surgery [facility] Periop Services [address] [place] [address] [place] [address] [facility] [address] [place] [address] TOTAL HIP ARTHROPLASTY ANTERIOR APPROACH (PLANNED OBSERVATION) CPT 10445 Social History Tobacco Use Types Packs/Day Years [...] Sign Reading Time Taken Comments Blood Pressure 107/68 03/30/2022 3:00 PM EDT Pulse 97 03/30/2022 3:00 PM EDT Temperature 37.7 ??C (99.9 ??F) 03/30/2022 2:22 PM ED T Respiratory Rate 12 03/30/2022 3:00 PM EDT Oxygen Saturation 96% 03/30/2022 3:00 PM EDT Inhaled Oxygen Concentration - - Weight 87.9 kg (193 lb 12.8 oz) 03/30/2022 8:33 AM EDT Height 172.7 cm (5' 8 ) 03/30/2022 8:33 AM EDT Body Mass Index 29.35 03/30/2022 4:27 [...] encounter Discharge Summaries * Mary Ann Cristina, BURNT LIME DRAWER - 04/01/2022 10:17 AM EDT Physician Discharge [...] (L) >60 /1.73 m2 Estimated GFR if -[place] >60 >60 /1.73 m2 Calcium 8.7 8.4 [...] Orthopedic Surgery, Pediatric Orthopedic Surgery Contact information [id number] [facility] [address] Keanu Brooks DO . Specialty: Family Medicine Contact information [address] [facility] [id number] Contact information for after-discharge snf [facility] . Service: Home Health Services Contact information Rafaela Nunez [facility] [id number] To-Do List To-Do List Future Appointments Provider Department Dept Phone 04/22/2022 1:00 PM Marii Cuellar APRN [facility] [phone] 1.?? If you will be using a mobile device, download the Flash Auto Detailing and Zoom apps before your appointment. 2.?? To begin your visit on a mobile device, open the Flash Auto Detailing logan and select your appointment underthe Visits icon. To begin your visit from a computer, select your appointment under the Visits tab. 3.?? Complete eCheckin prior to your visit. 4.?? For technical support prior to your visit, please call [phone], option 2 or visit [email or web address] to learn more about your telehealth visit. [...] Discharge Instructions * Discharge Instructions* Renata Lima RPH - 03/31/2022 9:22 AM EDT Apixaban (Eliquis??) [...] BID ??? budesonide-formoterol 2 puff Inhalation BID (,7) ??? docusate sodium 100 mg Oral BID [...] anytime from my standpoint Tobi Thornton MD [facility] 04/01/2022 12:33 EMR Dragon/Monogram Maker disclaimer: Much of this encounter note is an electronic visual communications instructor/translation of spoken language to printed text. The [...] Dotson 04/01/2022 6:02 AM * Mary Ann Cristina, BURNT LIME DRAWER - 03/31/2022 1:02 PM EDT Hand hygiene [...] for all questions and concerns. Mary Ann Cristina APRN * Tobi Thornton MD - 03/31/2022 12:37 PM EDT DAILY PROGRESS NOTE Patient Identification: Name: Margarita Steev Age: 61 yr/o Sex: male : 1960 [...] (L) >60 /1.73 m2 Estimated GFR if -[place] Islander >60 >60 /1.73 m2 Calcium 8.7 8.4 - 10.2 mg/dL XR Hip 1 Vw RT Result Date: 03/30/2022 REVIEWING YOUR TEST RESULTS IN Open-XchangeUReservFORMERLY [facility] IS NOT A SUBSTITUTE FOR DISCUSSING THOSE RESULTS WITH YOUR HEALTH CARE PROVIDER. PLEASE CONTACT YOUR PROVIDER VIA Insights TO DISCUSS ANY QUESTIONS OR CONCERNS YOU MAY HAVE REGARDING THESE TEST RESULTS. RADIOLOGY REPORT FACILITY: [facility] UNIT/AGE/GENDER: M.PERIOP OP AGE:61 Y SEX:M PATIENT NAME/: MARGARITA STEVE D 1960 UNIT NUMBER: [id number] ACCESSION NUMBER: [id number] Intraoperative fluoroscopic images of the XR HIP [...] Date: 03/30/2022 REVIEWING YOUR TEST RESULTS IN [facility] IS NOT A SUBSTITUTE FOR DISCUSSING THOSE RESULTS WITH YOUR HEALTH CARE PROVIDER. PLEASE CONTACT YOUR PROVIDER VIA [facility] TO DISCUSS ANY QUESTIONS OR CONCERNS YOU MAY HAVE REGARDING THESE TEST RESULTS. RADIOLOGY REPORT FACILITY: [facility] UNIT/AGE/GENDER: M.PERIOP OP AGE:61 Y SEX:M PATIENT NAME/: MARGARITA STEVE D 1960 UNIT NUMBER: [id number] ACCESSION NUMBER: [id number] EXAMINATION: Pelvis. DATE: 03/30/2022 at 1524. COMPARISON: [...] anytime from my standpoint Tobi Thornton MD [facility] 03/31/2022 12:37 EMR Dragon/Monogram Maker disclaimer: Much of this encounter note is an electronic visual communications instructor/translation of spoken language to printed text. The [...] INTERVAL Margarita Steve 61 yr/o 1960 male [id number] Current Vital Signs: BP (!) 145/90 (BP [...] 03/30/2022 8:35 AM Source Note - Ange Campos APRN - 03/01/2022 10:26 AM EDT History & [...] inhaler, Inhale 2 puffs into the lungs 2(two) times daily . , Disp: , Rfl: [...] (1.727 m), weight 90.7 kg (200 lb), [id number] %. Body mass index is 30.41 kg/m??. [...] hypertension, pain control, sleep apnea Service: Internal Medicine/[facility] History of Present Illness: Patient is [...] daily . 05/28/19 Yes Provider, Historical fexofenadine (GABBEI) 180 MG tablet Take 180 mg by [...] O Positive Antibody Screen Negative Crossmatch Expiration 04/02/2022,4992 Assessment: Principal Problem: Primary osteoarthritis of hips, [...] will follow hospital course Tobi Thornton MD [facility] 03/30/2022 4:48 PM EMR Dragon/Monogram Maker disclaimer: Much of this encounter note is an electronic visual communications instructor/translation of spoken language to printed text. The electronic translation of spoken language may permit erroneous, or at times, nonsensicalwords or phrases to be inadvertently transcribed; Although I have reviewed the note for such errors, some may still exist. documented in this encounter Miscellaneous Notes * Pharmacy - Venessa Monreal [facility] - 04/01/2022 2:06 PM EDT Pharmacy Transitions [...] BCACP Transitions of Care Clinical Pharmacist Specialist [facility] Office: * Occupational Therapy - Frida Fernandes OT - 04/01/2022 2:06 PM EDT [facility] Patient Room Number: 505/505-1 Patient Identification: Margarita Steve is a 61 yr/o male. 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 providers found OT Order (From admission, onward) OT Eval and Treat Once, Status: Canceled Ordering Provider: Mary Ann Cristina APRN Note Type: Discharge Discharge Summary - 04/02/22 [...] from the original note were not included. [facility] Patient Room Number: 505/505-1 Patient Identification: Margarita [...] support Loren Lynn PTA Cosigned by Concha Sharma PT at 04/02/2022 9:05 AM EDT * Nurse - Nereyda Mcdonough RN - 04/01/2022 2:06 PM EDT Pt discharged home with his . IV removed. Prescriptions given. AVS given. VSS. Bilateral aquacel dressings in place clean, dry and intact noted. BSC and RW given All questions answered. Pt transported in wheelchair to private transportation * Physical Therapy - Loren Lynn PTA - 04/01/2022 11:50 AM EDT Images from the original note were not included. [facility] Patient Room Number: 505/505-1 Patient Identification: [...] Date 04/03/22 Can be transferred to PT Fork Lift Truck Operator Yes Loren Lynn PTA * Physical Therapy - Loren Lynn PTA - 04/01/2022 9:41 AM EDT Images from the original note were not included. [facility] Patient Room Number: 505/505-1 Patient Identification: Margarita Steve is a 61 yr/o male. 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] Attending Provider: Cholo Dotson MD PT Order (From admission, onward) PT Evaluate and Treat Once Ordering Provider: Cholo Dotson MD Note Type: Treatment PT Treatment - 04/01/22940 General Current Hospitalization Summary Patient is a [...] Other Objective Information Other Objective Information Requested ORAL HYGIENIST refill polar pack with ice at end [...] Date 04/03/22 Can be transferred to PT Fork Lift Truck Operator Yes Loren Lynn PTA * Physical Therapy - Loren Lynn PTA - 04/01/2022 8:56 AM EDT [facility] Patient Room Number: 505/505-1 Patient Identification: Margarita [...] Date 04/03/22 Can be transferred to PT Fork Lift Truck Operator Yes Loren Lynn PTA * Physical Therapy - Loren Lynn PTA - 03/31/2022 2:23 PM EDT Images from the original note were not included. [facility] Patient Room Number: 505/505-1 Patient Identification: Margarita Steve is a 61 yr/o male. 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 Patient ordering hip kit on Zingaya for use at home. Patient instructed in [...] reach;Nurse/aide notified;All needs in reach;Ice pack reapplied [facility] Daily Activity Putting on / taking off LE clothing 3 Bathing (washing, rinsing, drying) 3 Toileting (toilet, bedpan, or urinal) 3 Putting on / taking off UE clothing 3 Taking care of personal grooming 3 Eating meals 3 TOTAL - [facility] Daily Activity 18 [facility] Total Difference 0 Patient/Family Training Patient/Family Training [...] Date 04/03/22 Can be transferred to OT Fork Lift Truck Operator N/A Frida Fernandes OT * Case Management [...] home at discharge. [facility]. Medical equipment ordered from [facility] per patients need. CM will continue to assist with any discharge needs. Patient is in agreement with plan. VANESA Hx: none HH Hx: non Discharge Barriers: Medical Stability Admission from: Home/[facility], no current nsg services Living Arrangement: House;Lives alone Support Systems: Family members;Children;Spouse/significant other;Friends/neighbors Does the patient have a Smart Phone, tablet or a computer with a camera and microphone?: Yes Do you currently see a primary care physician?: Yes PCP: Keanu Brooks, DO Do you currently have a pharmacy?: Yes Pharmacy: [id number] - [place] [address] [address] [facility] Who typically provides your care at home [...] medications delivered to their bedside from our [facility] upon discharge? If Yes, add appropriate [facility] as preferred pharmacy using Review PRICER Meds.: Yes Anticipated Mode of Transportation at Discharge - For Adult Patients Only : Private Transportation Morning (6AM-11AM) Transport Contact Info: friend Afternoon/Evening (11AM-9PM) Transport Contact Info: friend Signed: Temo Muhammad RN [phone] * Physical Therapy - Concha Sharma, PT - 03/31/2022 9:31 AM EDT Images from the original note were not included. [facility] Patient Room Number: 505/505-1 Patient Identification: Margarita Steve is a 61 yr/o male. 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 Subjective Subjective Patient agreeable to treatment;Nursing agreeable [...] reach;Nurse/aide notified;All needs in reach;Ice pack reapplied [facility] Basic Mobility Turning from supine to sidelie 3 Moving from supine to sitting on edge of bed 3 Moving to and from a bed to a chair 3 Standing from chair 3 Walking in hospital room 3 Climbing 3-5 steps with a railing 1 TOTAL - [facility] Basic Mobility 16 [facility] Total Difference 0 Patient/Family Training Patient/Family Training [...] Date 04/03/22 Can be transferred to PT Fork Lift Truck Operator Yes Concha Sharma PT * Nurse - Renata Watt RN - 03/30/2022 7:09 PM EDT Dangled feet x 5 minutes before stating feeling a little pain. Assisted back to bed * Operative Report - Cholo Dotson MD - 03/30/2022 6:03 PM EDT Operative Report Location: [facility] MAIN OR Patient: Margarita Steve Age: 61 yr/o : 1960 Sex: male Medical Record: [id number] Date of Operation/Procedure: 03/30/2022 Event Time Procedure Start 1055 Pre-operative Diagnosis Code: Pre-Op Diagnosis Codes: * Arthritis of both hips [M16.0] Pre-operative Diagnosis Free Text: Arthritis of both hips [M16.0] Post-operative Diagnosis: No change from Preoperative Diagnosis Surgeon(s) and Role: * Cholo Dotson MD - Primary [facility] Procedure(s) Performed: Procedure(s) and Anesthesia Type: Right TOTAL HIP ARTHROPLASTY ANTERIOR APPROACH (PLANNED OBSERVATION) CPT 02250 - General Indications for Operation/Procedure: Patient is [...] to the recovery room in stable condition. drafter assistant was responsible for critical assistanc e during [...] Implant Name Type Inv. Item Serial No. Felt Hat Pouncing Operator Hand Lot No. LRB No. Used Action HIP SHELL ACETAB 52 [id number] - [id number] Hips HIP SHELL ACETAB 52 [id number] [employer] ORTHO [id number] Left 1 Implanted HIP LINER [facility] 32 [id number] - [id number] Hips HIP LINER [facility] 32 [id number] [employer] ORTHO [id number] Left 1 Implanted HIP STEM SZ2 LAT [id number] - [id number] OTHER - IMPLANTS - ORTHOPAEDIC HIP STEM SZ2 LAT [id number] [employer] ORTHO [id number] Left 1 Implanted LOOP WIRE MALINDA 074879 - [id number] Cable LOOP WIRE MALINDA [id number] [employer] Left 1 Implanted HIP FEM HEAD TAPER 32 [id number] - [id number] Hips HIP FEM HEAD TAPER 32 [id number] [employer] ORTHO [id number] Left 1 Implanted HIP SHELL ACETAB 52 [id number] - [id number] Hips HIP SHELL ACETAB 52 [id number] [employer] ORTHO [id number] Right 1 Implanted HIP LINER ACETAB 52 [id number] - [id number] Hips HIP LINER ACETAB 52 [id number] [employer] ORTHO [id number] Right 1 Implanted HIP STEM SZ2 LAT [id number] - [id number] OTHER - IMPLANTS - ORTHOPAEDIC HIP STEM SZ2 LAT [id number] [employer] ORTHO [id number] Right 1 Implanted HIP FEM HEAD TAPER 32 [id number] - [id number] Hips HIP FEM HEAD TAPER 32 [id number] [employer] [id number] Right 1 Implanted Estimated Blood Loss: 1000 for the entire case combining both sides Fluids/Drains: None Cholo Dotson MD 03/30/2022 6:03 PM * Nurse [...] and intact. Neurovascular checks are done at bedside. orders are Core Measures sheet is reviewed and handed off. Patient and friend are educated at bedside. Call light with reach. Vitals: t=97.9, p=97, rr=15, sat=97%, ds=107/81. SCIP protocol, antibiotic due, pt's last void And last bladder scan discussed with RN. * Operative Report - Cholo Dotson MD - 03/30/2022 1:54 PM EDT Operative Report Location: [facility] MAIN OR Patient: Margarita Steve Age: 61 yr/o : 1960 Sex: male Medical Record: [id number] Date of Operation/Procedure: 03/30/2022 Event Time Procedure Start 105 Pre-operative Diagnosis Code: Pre-Op Diagnosis Codes: * Arthritis of both hips [M16.0] Pre-operative Diagnosis Free Text: Arthritis of both hips [M16.0] Post-operative Diagnosis: No change from Preoperative Diagnosis Surgeon(s) and Role: * Cholo Dotson MD - Primary [place] [place] Procedure(s) Performed: Procedure(s) and Anesthesia Type: Left TOTAL HIP ARTHROPLASTY ANTERIOR APPROACH (PLANNED OBSERVATION) CPT 06999 - General Indications for Operation/Procedure: Patient is a 61-year-old male with a history of bilateral avascular necrosis of the femoral heads. 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 He comes in for treatment after havi [...] and TXA. Boots were placed for the [place] table and he was moved over to the [place] table brought gently down against the padded [...] done. The intervening fragment of bone was r emoved. The head was removed with a corkscrew. Acetabular retractor was placed and the labrum was removed circumferentially. Hemispherical reamers were used under fluoroscopy up to size 52 at which satisfactory sizing was obtained. I needed to medialized to the medial wall for the 52 to be stable on the left. Once this was done the cup was solid and a trial neutral liner was placed. The hip was extended and externally rotated. The trochanter was lateralized and broaches were used up to size 2. The trial reduction was done with a 0 ball and this was too short. I went to a +4 ball and this gaveexcellent leg lengths but was not lateralized enough. [...] original. During the final seating there was noted to be a small crack in the medial neck. This did not extend even quite to the lesser trochanter but was felt to be significant enough that I placed a cerclage wire which was a 16- gauge double wire which was twisted down in place with care to stay just above the lesser trochanter and below the edgeof the femoral neck. This was tight and [...] bandage was applied the drapes were removed andattention was directed to the right side which will be dictated separately. Type of Anesthesia: General Specimens: N/A Grafts/Implants: Implant Name Type Inv. Item Serial No. Felt Hat Pouncing Operator Hand Lot No. LRB No. Used Action HIP SHELL ACETAB 52 [id number] - [id number] Hips HIP SHELL ACETAB 52 [id number] [employer] ORTHO [id number] Left 1 Implanted HIP LINER JEANINE SZ 32 [id number] - [id number] Hips HIP LINER JEANINE SZ 32 [id number] [employer] ORTHO [id number] Left 1 Implanted HIP STEM SZ2 LAT [id number] - [id number] OTHER - IMPLANTS - ORTHOPAEDIC HIP STEM SZ2 LAT [id number] [employer] OR[employer]O [id number] Left 1 Implanted LOOP WIRE MALINDA 650169 - [id number] Cable LOOP WIRE MALINDA [id number] [employer] Left 1 Implanted HIP FEM HEAD TAPER 32 [id number] - [id number] Hips HIP FEM HEAD TAPER 32 [id number] [employer] [id number] Left 1 Implanted HIP SHELL ACETAB 52 [id number] - [id number] Hips HIP SHELL ACETAB 52 [id number] [employer] [id number] Right 1 Implanted HIP LINER ACETAB 52 [id number] - [id number] Hips HIP LINER ACETAB 52 [id number] [employer] [id number] Right 1 Implanted HIP STEM SZ2 LAT [id number] - [id number] OTHER - IMPLANTS - ORTHOPAEDIC HIP STEM SZ2 LAT [id number] [employer] [id number] Right 1 Implanted HIP FEM HEAD TAPER 32 [id number] - [id number] Hips HIP FEM HEAD TAPER 32 [id number] [employer] [id number] Right 1 Implanted Estimated Blood Loss: 1000 for the entire procedure both sides Fluids/Drains: None Cholo Dotson MD 03/30/2022 1:54 PM * Case Management - Lisa Schaeffer - 03/30/2022 7:43 AM EDT ORTHO REFERRAL PREFERENCE Home Health =[facility] Lisa Schaeffer [employer] Saw[employer] Associate [phone] M-F 7:00 AM-3:30PM documented in this encounter Plan of Treatment Upcoming Encounters Date Type Department Care Team (Late st Contact Info) Description 01/24/2025 1:40 PM EDT Office Visit [facility] [place] [address] [place] [address] Damien Cárdenas, BURNT LIME DRAWER [address] [place] [address] Scheduled Referrals Name Type Priority [...] 4.5 - 11.0 10*3/uL 04/01/2022 6:36 AM [facility] Red Blood Count 3.60(L) 4.5 - 5.9 10*6/uL 04/01/2022 6:36 AM [facility] Hemoglobin 12.1(L) 13.5 - 17.5 g/dL 04/01/2022 6:36 AM [facility] Hematocrit 35.8(L) 41.0 - 53.0 % 04/01/2022 6:36 AM [facility] Mean Corpuscular Volume 99.4 80.0 - 100.0 fL 04/01/2022 6:36 AM [facility] Mean Corpuscular Hemoglobin 33.6 26.0 - 34.0 pg 04/01/2022 6:36 AM [facility] Mean Corpuscular HGB Conc 33.8 31.0 - 37.0 g/dL 04/01/2022 6:36 AM [facility] Red Cell Distribution Width-CV 13.5 12.0 - 16.8 % 04/01/2022 6:36 AM [facility] Platelet Count 136(L) 140 - 440 10*3/uL 04/01/2022 6:36 AM [facility] Mean Platelet Volume 10.3 8.4 - 12.4 fL 04/01/2022 6:36 AM [facility] Diff Type CBC w/Manual Differential (arb'U) 04/01/2022 8:05 AM [facility] Neutrophils % 82.0(H) 45 - 80 % 04/01/2022 8:05 AM [facility] Band Neutrophil% 1.0 0 - 5 % 04/01/2022 8:05 AM [facility] Lymphocyte % 11.0(L) 15 - 50 % 04/01/2022 8:05 AM [facility] Eosinophil% 1.0 0 - 7 % 04/01/2022 8:05 AM EDT [facility] Myeloctye % 5.0(H) 0 % 04/01/2022 8:05 AM T [facility] Nucleated RBC % 0 0 /100(WBC) 04/01/20 8:05 AM T [facility] Absolute Neutrophil Count 8.57 2.0 - 8.8 /uL 04/01/2022 8:05 AM EDT [facility] Neutrophil Abs 8.47 2.0 - 8.8 10*3/uL 04/01/2022 8:05 AM EDT [facility] Bands-Absolute 0.10 0 - 0.6 10*3/uL 04/01/2022 8:05 AM T [facility] Lymphocyte-Abso lute 1.14 0.7 - 5.5 10*3/uL 04/01/2022 8:05 AM T [facility] EOS-Absolute 0.10 0.0 - 0.8 10*3/uL 04/01/2022 8:05 AM [facility] Myelo-Absolute 0.52(H) 0 10*3/uL 04/01/2022 8:05 AM [facility] RBC Morphology Comment Normal Normal 04/01/2022 8:05 AM [facility] Platelet Estimate DECREASED(A) Adequate (arb'U) 04/01/2022 8:05 AM [facility] Whole Blood BLOOD SPECIMEN FROM PATIENT / Unknown 04/01/2022 5:56 AM EDT 04/01/2022 6:20 AM EDT us Cholo Dotson MD LAB BLOOD [place]AB[place] [address] [address] * (ABNORMAL) CBC w/Diff (03/31/2022 3:22 AM EDT) White Blood Count 12.75(H) 4.5 - 11.0 10*3/uL [facility] 3.58(L) 4.5 - 5.9 10*6/uL 03/31/2022 3:39 AM [facility] Hemoglobin 12.1(L) 13.5 - 17.5 g/dL 03/31/2022 3:39 AM [facility] Hematocrit 35.9(L) 41.0 - 53.0 % 03/31/2022 3:39 AM [facility] Mean Corpuscular Volume 100.3(H) 80.0 - 100.0 fL 03/31/2022 3:39 AM [facility] Mean Corpuscular Hemoglobin 33.8 26.0 - 34.0 pg 03/31/2022 3:39 AM [facility] Mean Corpuscular HGB Conc 33.7 31.0 - 37.0 g/dL 03/31/2022 3:39 AM [facility] Red Cell Distribution Width-CV 13.3 12.0 - 16.8 % 03/31/2022 3:39 AM [facility] Platelet Count 149 140 - 440 10*3/uL 03/31/2022 3:39 AM [facility] Mean Platelet Volume 10.1 8.4 - 12.4 fL 03/31/2022 3:39 AM [facility] Diff Type Hospital CBC w/AutoDiff (arb'U) 03/31/2022 3:39 AM [facility] Neutrophils % 82.9(H) 45 - 80 % 03/31/2022 3:39 AM [facility] Lymphocyte % 8.2(L) 15 - 50 % 03/31/2022 3:39 AM [facility] Monocyte % 8.2 0 - 15 % 03/31/2022 3:39 AM [facility] Eosinophil% 0.2 0 - 7 % 03/31/2022 3:39 AM [facility] BASO% 0.1 0 - 2 % 03/31/2022 3:39 AM [facility] Immature Granulocyte% 0.4 0.0 - 1.0 % 03/31/2022 3:39 AM [facility] Nucleated RBC % 0 0 /100(WBC) 03/31/2022 3:39 AM [facility] Neutrophil Abs 10.58(H) 2.0 - 8.8 10*3/uL 03/31/2022 3:39 AM EDT [facility] Lymphocyte-Absol lummi 1.05 0.7 - 5.5 10*3/uL 03/31/2022 3:39 AM EDT [facility] Monocyte Absolute 1.04 0.0 - 1.7 10*3/uL 03/31/2022 3:39 AM EDT [facility] EOS-Absolute 0.02 0.0 - 0.8 10*3/uL 03/31/2022 3:39 AM EDT [facility] Basophil Abs 0.01 0.0 - 0.2 10*3/uL 03/31/2022 3:39 AM EDT [facility] Immature Granulocyte Abs 0.05 0.00 - 0.10 10*3/uL 03/31/2022 3:39 AM T [facility] Blood specimen from patient (specimen) BLOOD SPECIMEN FROM PATIENT / Unknown 03/31/2022 3:22 AM EDT 03/31/2022 3:28 AM EDT us Cholo Dotson MD LAB BLOOD ORDERABLES Final Result [id number] [place] [address] * (ABNORMAL) Basic Metabolic Panel (BMP) (03/31/2022 3:22 AM EDT) Sodium 136 136 - 145 mmol/L 03/31/2022 3:51 AM T [facility] Comment: (note) Excess protein and/or lipids can falsely decrease sodium levels (pseudo hyponatremia). Potassium 4.1 3.5 - 5.1 mmol/L 03/31/2022 3:51 AM EDT [facility] Chloride 103 98 - 107 mmol/L 03/31/2022 3:51 AM T [facility] Comment: (note) Falsely elevated chloride levels can be seen in patients taking medications which contain bromide. Carbon Dioxide 24 22 - 29 mmol/L 03/31/2022 3:51 AM EDT [facility] Anion Gap 9 5 - 13 (arb'U) 03/31/2022 3:51 AM T [facility] Comment: (note) Calculation- Na - (Cl + CO2) Glucose 175(H) 71 - 139 mg/dL 03/31/2022 3:51 AM T [facility] Comment: (note) Reference range based on inpatient hypo/hyperglycemic treatment levels. A random glucose =/>200 is concerning for poor control. Blood Urea Nitrogen (BUN) 21 8 - 26 mg/dL 03/31/2022 3:51 AM [facility] Creatinine-Bloo d 1.24(H) 0.73 - 1.18 mg/dL 03/31/2022 3:51 AM [facility] BUN/Creatinine Ratio 16.9 RATIO 03/31/2022 3:51 AM T [facility] Estimated GFR 59(L) >60 /1.73 m2 03/31/2022 3:51 AM T [facility] Comment: (note) Results do not take into account body mass. ??Valid for patients 18 to 70 years of age. Estimated GFR if -Melany n >60 >60 /1.73 m2 03/31/2022 3:51 AM [facility] Comment: (note) Results do not take into account body mass. ??Valid for patients 18 to 70 years of age. Calcium 8.7 8.4 - 10.2 mg/dL 03/31/2022 3:51 AM T [facility] Plasma specimen (specimen) BLOOD SPECIMEN FROM PATIENT / Unknown 03/31/2022 3:22 AM EDT 03/31/2022 3:28 AM EDT us Cholo Dotson MD LAB BLOOD ORDERABLES Final Result [facility] [id number] [place] [address] [address] [place] [address] * XR Pelvis One Or Two Views (03/30/2022 3:24 PM EDT) Anatomical Region Laterality Modality Pelvis [facility] Radiographic Imaging 03/30/2022 4:37 PM EDT Narrative 03/30/2022 4:42 PM EDT REVIEWING YOUR TEST RESULTS IN [facility] IS NOT A SUBSTITUTE FOR DISCUSSING THOSE RESULTS WITH YOUR HEALTH CARE PROVIDER. PLEASE CONTACT YOUR PROVIDER VIA [employer]ights TO DISCUSS ANY QUESTIONS OR CONCERNS YOU MAY HAVE REGARDING THESE TEST RESULTS. RADIOLOGY REPORT FACILITY: ??[facility] UNIT/AGE/GENDER: M.PERIOP ??OP ?AGE:61 Y ?SEX:M PATIENT NAME/: ??MARGARITA STEVE D ?1960 UNIT NUMBER: ??[id number] ACCESSION NUMBER: ??[id number] EXAMINATION: Pelvis. DATE: 03/30/2022 at 1524. COMPARISON: [...] Dayo Jordan M.D. <PS><Electronically signed by: Dayo oJrdan M.D.> 03/30/2022 1641 1637 1637 Procedure Note Dayo Jordan MD - 03/30/2022 REVIEWING YOUR TEST RESULTS IN [facility] IS NOT A SUBSTITUTE FORDISCUSSING THOSE RESULTS WITH YOUR HEALTH CARE PROVIDER. PLEASE CONTACT YOUR PROVIDER VIA [employer]ights TO DISCUSS ANY QUESTIONS ORCONCERNS YOU MAY HAVE REGARDING THESE TEST RESULTS. RADIOLOGY REPORT FACILITY: [facility] UNIT/AGE/GENDER: M.PERIOP OP AGE:61 Y SEX:M PATIENT NAME/: MARGARITA STEVE D 1960 UNIT NUMBER: [id number] ACCESSION NUMBER: [id number] EXAMINATION: Pelvis. DATE: 03/30/2022 at 1524. COMPARISON: [...] 1641 1637 1637 us Cholo Dotson MD [facility] [place]IC [place]AGING ORD ERABLES Final Result * FL C-Arm Greater than 1 Hour (03/30/2022 1:42 PM EDT) Impressions Test Radiology, Technologist, RT - 03/30/2022 1:50 PM EDT were obtained for surgical purposes. ??See Cholo Dotson's surgical note in the patient's chart for the findings. Narrative Test Radiology, Technologist, RT - 03/30/2022 1:50 PM EDT Images us Cholo Dotson MD dAelfo FLUOROSCOPY ORDERABLES Final Result * XR Hip 1 Vw RT (03/30/2022 1:42 PM EDT) Anatomical Region Laterality Modality Hip [facility] Radiographic Imaging 03/30/2022 2:05 PM EDT Narrative 03/30/2022 2:07 PM EDT REVIEWING YOUR TEST RESULTS IN [facility] IS NOT A SUBSTITUTE FOR DISCUSSING THOSE RESULTS WITH YOUR HEALTH CARE PROVIDER. PLEASE CONTACT YOUR PROVIDER VIA [facility] TO DISCUSS ANY QUESTIONS OR CONCERNS YOU MAY HAVE REGARDING THESE TEST RESULTS. RADIOLOGY REPORT FACILITY: ??[facility] UNIT/AGE/GENDER: M.PERIOP ??OP ?AGE:61 Y ?SEX:M PATIENT NAME/: ??MARGARITA STEVE D ?1960 UNIT NUMBER: ??[id number] ACCESSION NUMBER: ??[id number] Intraoperative fluoroscopic images of the XR HIP [...] - 03/30/2022 REVIEWING YOUR TEST RESULTS IN [facility] IS NOT A SUBSTITUTE FORDISCUSSING THOSE RESULTS WITH YOUR HEALTH CARE PROVIDER. PLEASE CONTACT YOUR PROVIDER VIA [facility] TO DISCUSS ANY QUESTIONS ORCONCERNS YOU MAY HAVE REGARDING THESE TEST RESULTS. RADIOLOGY REPORT FACILITY: [facility] UNIT/AGE/GENDER: M.PERIOP OP AGE:61 Y SEX:M PATIENT NAME/: MARGARITA STEVEMary Ellen 1960 UNIT NUMBER: [id number] ACCESSION NUMBER: [id number] Intraoperative fluoroscopic images of the XR HIP [...] PM EDT) Anatomical Region Laterality Modality Hip [facility] Radiographic Imaging 03/30/2022 2:05 PM EDT Narrative 03/30/2022 2:07 PM EDT REVIEWING YOUR TEST RESULTS IN [facility] IS NOT A SUBSTITUTE FOR DISCUSSING THOSE RESULTS WITH YOUR HEALTH CARE PROVIDER. PLEASE CONTACT YOUR PROVIDER [facility] TO DISCUSS ANY QUESTIONS OR CONCERNS YOU MAY HAVE REGARDING THESE TEST RESULTS. RADIOLOGY REPORT FACILITY: ??[facility] UNIT/AGE/GENDER: M.PERIOP ??OP ?AGE:61 Y ?SEX:M PATIENT NAME/: ??MARGARITA STEVE, Mary Ellen ?1960 UNIT NUMBER: ??[id number] ACCESSION NUMBER: ??[id number] Intraoperative fluoroscopic images of the XR HIP [...] - 03/30/2022 REVIEWING YOUR TEST RESULTS IN [facility] IS NOT A SUBSTITUTE FORDISCUSSING THOSE RESULTS WITH YOUR HEALTH CARE PROVIDER. PLEASE CONTACT YOUR PROVIDER VIA [facility] TO DISCUSS ANY QUESTIONS ORCONCERNS YOU MAY HAVE REGARDING THESE TEST RESULTS. RADIOLOGY REPORT FACILITY: [facility] UNIT/AGE/GENDER: M.PERIOP OP AGE:61 Y SEX:M PATIENT NAME/: MARGARITA STEVEMary Ellen 1960 UNIT NUMBER: [id number] ACCESSION NUMBER: [id number] Intraoperative fluoroscopic images of the XR HIP [...] M.D.> 03/30/2022 1406 1405 1405 us Cholo Doston MD IMG DIAGNOSTIC IMAGING ORD ERABLES Final Result * Type and Screen (03/30/2022 11:29 AM EDT) ABO/Rh(D) O Positive 03/30/2022 12:48 PM EDT [facility] Antibody Screen Negative 03/30/2022 12:48 PM EDT [facility] Crossmatch Expiration 04/02/2022,2 359 03/30/2022 12:48 PM EDT [facility] Whole Blood BLOOD SPECIMEN FROM PATIENT / Unknown 03/30/2022 11:29 AM EDT 03/30/2022 11:57 AM EDT us Cholo Dotson MD BLOOD BANK TEST ORDERABLES Final Result Performing Organization Address [facility] Co de Phone Number [address] [address] * Glucose-Glucometer (03/30/2022 8:49 AM EDT) [facility] Glucose Glucometer 118 71 - 139 mg/dL 03/30/2022 8:51 AM EDT [facility] Serum 03/30/2022 8:49 AM EDT 03/30/2022 8:51 AM EDT us Cholo Dotson MD LAB BLOOD ORDERABLES Final Result Performing Organization Address [facility] Co de Phone Number [address] [address] documented in this encounter Visit Diagnoses Diagnosis Status post total replacement of both hips 03/30/22 Arthritis of both hips Arthritis of both hips documented in this encounter Admitting Diagnoses Diagnosis [...] Until Regine 04/01/22 at 1611, Post-op, Routine New Bag 03/30/2022 [...] Tue03/30/22 at 1056, Pre-op, RoutineIndications:Surgical Prophylaxis [facility] 03/30/2022 10:26 AM EDT 2 g 120 [...] 03/30/2022 9:50 AM EDT 4 mg 12 mL/hr docusate sodium (COLACE) capsule 100 mg 100 mg, Oral, 2 times daily, First dose on Tue03/30/22 at 2000, Until first bowel movement, Until Discontinued, Post-op, Routine Given 03/30/2022 9:18 PM EDT 100 mg EPINEPHrine PF (ADRENALIN) injection Intra-op PRN, Starting on Tue03/30/22 at 1107, Until Tue03/30/22 at 1445, Intra-op, Routine Given 03/30/2022 11:07 AM EDT 0.5 mg Othe r famotidine (PEPCID) injection 20 mg 20 mg, [...] . Given 04/01/2022 8:56 AM EDT 10 m g Given 03/31/2022 9:25 AM EDT 10 mg [...] 54 mL, Administer over 120 Minutes, Until [facility] 04/01/22 at 1611, RoutineIndications:Total Body Mag [...] Acetaminophen = 4 gm Per Day., Until Regine 04/01/22 at 1611, Post-op, Routine potassium chloride 10 [...] Level is Less Than 1.6 mg/dL, Then [place] the Magnesium Replacement Protocol., 100 mL, Administer over 60 Minutes, Until Regine 04/01/22 at 1611, Routine potassium chloride 10 [...] Level is Less Than 1.6 mg/dL, Then [place] the Magnesium Replacement Protocol., 50 mL, Administer over 60 Minutes, Until [facility] 04/01/22 at 1611, Routine potassium chloride [...] Magnesium is Less Than 1.6 mg/dL, Then [place] the Magnesium Replacement Protocol., 30 mL, Until [facility] 04/01/22 at 1611, Routine potassium chloride [...] Magnesium is Less Than 1.6 mg/dL, Then [place] the Magnesium Replacement Protocol., Until Regine 04/01/22 at 1611, Routine ropivacaine (NAROPIN) 0.2% injection Intra-op PRN, Starting on Tue03/30/22 at 1107, Until Tue03/30/22 at 1445, Intra-op, Routine Given 03/30/2022 11:07 AM EDT 80 mLs Other scopolamine (TRANSDERM-SCOP) 1 MG (1.5 MG BASE)/3 [...] 0851 (Given - Provider: Simran Dumont RN) allopurinol [...] 924 (Given - Provider: Nereyda Mcdonough RN) 08 (Given - Provider: Nereyda Mcdonough, BELINDA) apixaban (ELIQUIS) tablet 2.5 mg 2.5 mg, Oral, 2 times daily, First dose on Tue03/31/22 at 0800, Until Discontinued, Post-op, Routine 925 (Given - Provider: Nereyda Mcdonough, BELINDA)2038 (Given - Provider: Natasha Guerrero, BELINDA) 08 (Given - Provider: Nereyda Mcdonough, RN) budesonide-formoterol (SYMBICORT) 160-4.5 MCG/ACT inhaler 2 puff(Linked Group 1) 2 puff, Inhalation, BID (RT), First dose on Tue03/30/22 at 1900, Patient Should Rinse Mouth After Use., Until Discontinued, Routine, With Tx Panel? Yes 1900 (Given - Provider: Anna Staton, SKILLED NURSING FACILITIES PROFESSIONAL) 0749 (Given - Provider: Jeannette Lees, SKILLED NURSING FACILITIES PROFESSIONAL)190 (Given - Provider: Berkley Valle, RT) 0739 (Given - Provider: Haley Holder, SKILLED NURSING FACILITIES PROFESSIONAL) ceFAZolin (KEFZOL/ANCEF) 2 g in dextrose 5 % 50 mL IVPB infusion (COMPLETED) 2 g, Intravenous, at 120 mL/hr, Every 8 hours, First dose on Tue03/30/22 at 1830, For 2 doses, To give 8 hours after last operative dose., 60 mL, Administer over 30 Minutes, Last dose on Tue03/31/22 at 0230, Post-op, Timed 1749 (New Bag - Provider: Renata Watt, RN)1830 (Stopped - Provider: Renata Watt, RN) 0314 (New Bag - Provider: Natasha Guerrero, BELINDA)0344 (Stopped - Provider: Natasha Guerrero, BELINDA) ceFAZolin 2 g/50 mL in D5W (COMPLETED) [...] first bowel movement, Until Discontinued, Post-op, Routine 2117 (Given - Provider: Natasha Guerrero RN) 0925 [...] Instill 2 sprays into nose daily . 1147 (Given - Provider: Nereyda Mcdonough RN) 0857 (Given - Provider: Nereyda Mcdonough RN) gabapentin (NEURONTIN) capsule 300 mg (COMPLETED) 300 mg, Oral, Once, On Tue03/30/22 at 0815, For 1 dose, Give with a sip of water, Pre-op, Routine 851 (Given - Provider: Simran Dumont RN) hydroCHLOROthiazide (HydroDIURIL) tablet 25 mg(Linked Group 2) 25 mg, Oral, Daily, First dose on Tue03/31/22 at 0800, Until Discontinued, Routine 924 (Given - Provider: Nereyda Mcdonough RN) 855 (Given - Provider: Nereyda Mcdonough RN) lidocaine injection 1% (COMPLETED) 1 mL, Intradermal, Once, On Tue03/30/22 at 0815, For 1 dose, Create 0.1 to 0.3 mm bleb to anesthetize site prior to venipuncture., 10 mL, Pre-op, Routine 950 (Given - Provider: Simran Dumont RN) lisinopril (PRINIVIL) tablet 20 mg(Linked Group 2) 20 mg, Oral, Daily, First dose on Tue03/31/22 at 0800, Until Discontinued, Routine 924 (Given - Provider: Nereyda Mcdonough RN) 855 (Given - Provider: Nereyda Mcdonough RN) loratadine (CLARITIN) tablet 10 mg 10 mg, Oral, Daily, First dose on Tue03/31/22 at 0800, Until Discontinued, Post-op, Previous Med: fexofenadine (GABBIE) 180 MG tablet - Orig Sig - Take 180 mg by mouth daily . 924 (Given - Provider: Nereyda Mcdonough RN) 855 (Given - Provider: Nereyda Mcdonough RN) montelukast [...] For 1 dose, 2 mL, Pre-op, Routine 949 (Given - Provider: Simran Dumont RN) scopolamine [...] - Take 25 mg by mouth daily. 0925 (Not Given - Provider: Nereyda Mcdonough RN - Reason: Patient/family refused) 0856 (Not [...] on Tue03/31/22 at 0100, Until Discontinued, Routine 56 (Given - Provider: Natasha Guerrero RN)2038 (Given - Provider: Natasha Guerrero RN) Continuous Medication Order 03/30/2022 03/31/2022 04/01/2022 0.9% NaCl infusion Intravenous, at 75 mL/hr, Continuous, Starting on Tue03/30/22 at 1630, Discontinue once taking PO fluids., 1,000 mL, Until Regine 04/01/22 at 1611, Post-op, Routine 1754 (New Bag - Provider: Renata Watt RN) lactated ringers infusion (CANCELED) Intravenous, at 25 mL/hr, Continuous, Starting on Tue03/30/22 at 0815, KVO, 1,000 mL, Until Tue03/30/22 at 1619, Pre-op, Routine 0851 (New Bag - Provider: Simran Dumont RN)1029 (Intraop Orders continued from Pre-op - Provider: [...] 54 mL, Administer over 120 Minutes, Until Tue04/01/22 at 1611, Routine melatonin tablet 3 mg 3 mg, Oral, Nightly PRN, Sleep, Starting on Tue03/30/22 at 1624, Until Tue04/01/22 at 1611, Post-op, Routine Midazolam (PF) (VERSED) [...] 1830 (See Alternative - Provider: Renata Watt RN)2117 (Given - Provider: Natasha Guerrero RN) 0315 (See Alternative - Provider: Natasha Guerrero RN)0743 (See Alternative - Provider: Natasha Guerrero RN)1144 (See Alternative - Provider: Nereyda Mcdonough RN) oxyCODONE-acetaminophen (PERCOCET) 5-325 MG 2 tablet(Linked Group 5) 2 tablet, Oral, Every 4 hours PRN, Severe pain, Starting on Tue03/31/22 at 1300, Maximum Recommended Dose for Adults of Acetaminophen = 4 gm Per Day., Until Regine 04/01/22 at 1611, Post-op, Routine 1506 (Given - Provider: Nereyda Mcdonough RN)2040 (Given - Provider: Natasha Guerrero RN) 0201 (Given - Provider: Natasha Guerrero RN)0550 (Given - Provider: Natasha Guerrero BELINDA)1020 (Given - Provider: Nereyda Mcdonough, BELINDA) oxyCODONE-acetaminophen (PERCOCET) 7.5-325 MG 1 tablet (CANCELED) 1 tablet, Oral, Every 4 hours PRN, Severe pain, Starting on Tue03/30/22 at 1624, Maximum Recommended Dose for Adults of Acetaminophen = 4 gm Per Day., Until Tue03/31/22 at 1301, Post-op, Routine 1830 (Given - Provider: Renata Watt RN)2117 (See Alternative - Provider: Natasha Guerrero, BELINDA) 0315 (Given - Provider: Natasha Guerrero, BELINDA)0743 (Given - Provider: Natasha Guerrero, RN)1144 (Given - Provider: Nereyda Mcdonough, BELINDA) oxyCODONE-acetaminophen (PERCOCET) 7.5-325 MG 1 tablet(Linked Group 5) 1 tablet, Oral, Every 4 hours PRN, Moderate pain, Starting on Tue03/31/22 at 1300, Maximum Recommended Dose for Adults of Acetaminophen = 4 gm Per Day., Until Regine 04/01/22 at 1611, Post-op, Routine 1506 (See Alternative - Provider: Nereyda Mcodnough, BELINDA)2040 (See Alternative - Provider: Natasha Guerrero RN) 0201 (See Alternative - Provider: Natasha Guerrero, BELINDA)0550 (See Alternative - Provider: Natasha Guerrero, BELINDA)1020 (See Alternative - Provider: Nereyda Mcdonough, BELINDA) potassium chloride 10 mEq in 100 mL [...] Level is Less Than 1.6 mg/dL, Then [place] the Magnesium Replacement Protocol., 100 mL, Administer over 60 Minutes, Until [facility] 04/01/22 at 1611, Routine potassium chloride [...] Level is Less Than 1.6 mg/dL, Then [place] the Magnesium Replacement Protocol., 50 mL, Administer over 60 Minutes, Until [facility] 04/01/22 at 1611, Routine potassium chloride [...] Magnesium is Less Than 1.6 mg/dL, Then [place] the Magnesium Replacement Protocol., 30 mL, Until Regine 04/01/22 at 1611, Routine potassium chloride SA [...] Magnesium is Less Than 1.6 mg/dL, Then [place] the Magnesium Replacement Protocol., Until Regine 04/01/22 at 1611, Routine ropivacaine (NAROPIN) 0.2% [...] Panel? Yes And Inhalation Treatment D.B BID (7,7) (CANCELED) Routine, BID (RT), First occurrence on [...] Magnesium is Less Than 1.6 mg/dL, Then [place] the Magnesium Replacement Protocol., Until [facility] 04/01/22 at 1611, Routine Or potassium [...] Magnesium is Less Than 1.6 mg/dL, Then [place] the Magnesium Replacement Protocol., 30 mL, Until [facility] 04/01/22 at 1611, Routine Or potassium chloride 10 mEq in 100 mL IVPBJump to med 10 mEq, Intravenous, at 100 mL/hr, As needed per protocol PRN, Other, If Patient is NPO or Symptomatic Give 10 meq Over 1 Hour??(Peripheral), Starting on [facility] 03/30/22 at 1753, Do not use if [...] Level is Less Than 1.6 mg/dL, Then [place] the Magnesium Replacement Protocol., 100 mL, Administer over 60 Minutes, Until [facility] 04/01/22 at 1611, Routine Or potassium [...] Level is Less Than 1.6 mg/dL, Then [place] the Magnesium Replacement Protocol., 50 mL, Administer over 60 Minutes, Until [facility] 04/01/22 at 1611, Routine documented in this encounter Care Teams [employer] Relationship Specialty Start Date End Date Keanu Brooks DO PCP - General Family Medicine 01/14/20 documented as of this encounter
--- OUTSIDE RECORDS SUMMARY | 2024-10-10 22:52 | XMS_ITS | Encounter Summary ---
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 60 tablet 03/31/2022 3 HYDROcodone-aceta minophen (NORCO) 5-325 MG per tablet Take 1 tablet by mouth every 4 (four) hours as needed for Pain for up to 7 days. Max Daily Amount: 6 tablets 40 tablet 08/19/2023 3 hydrOXYzine (ATARAX) 10 MG tablet Take 10 mg by mouth. 03/03/2023 4 sertraline (ZOLOFT) 25 MG tablet Take 25 mg by mouth daily as needed. 09/01/2020 3 documented as of this encounter Plan of Treatment Upcoming Encounters Date Type Department Care Team (Late st Contact Info) Description 01/24/2025 1:40 PM EDT Office Visit [facility] - [address] [address] Damien Cárdenas, TANG [address] [place] [address] documented as of this encounter Procedures Procedure Name Priority Date/Time Associated Diagnosis Comments ECG 12-LEAD Routine 07/26/2023 10:59 AM EST Pre-operative cardiovascular examination, new EKG abnormalities c/w ischemia CBC W/DIFF Routine 07/26/2023 10:37 AM EST BASIC METABOLIC PANEL (BMP) Routine 07/26/2023 10:37 AM EST documented in this encounter Results * ECG 12 lead (07/26/2023 10:59 AM EST) 07/26/2023 10:5 9 AM EST Narrative [facility] - 07/26/2023 11:55 AM EST CARDIOLOGY REPORT FACILITY: [facility] PATIENT NAME/: YOVANNY MALIN ?1960 UNIT/AGE/GENDER: ?AGE: 63 YR ?GENDER: M UNIT NUMBER: [id number] ACCESSION NUMBER: [id number] DATE OF EXAM: 07/26/2023 ??10:59 EXAMINATION(S): ECG 12-LEAD FINAL REPORT Procedure: ELECTROCARDIOGRAM RESULT Heart Rate ? 93 P-R Interval ? 148 ms QRS Interval ? 80 ms QT Interval ? 324 ms QTC Interval ? 403 ms P [place] ? 72 deg QRS [place] ? 47 deg T Wave [place] ? 0 deg DATE: 07/26/2023 10:59 SINUS RHYTHM Summary: Normal ECG Electronically signed by Pan Paez M.D. ??07/26/2023 11:55 Procedure Note Pan Paez MD - 07/26/2023 CARDIOLOGY REPORT FACILITY: [facility] PATIENT NAME/: YOVANNY MALIN 1960 UNIT/AGE/GENDER: AGE: 63 YR GENDER: M UNIT NUMBER: [id number] ACCESSION NUMBER: [id number] DATE OF EXAM: 07/26/2023 10:59 EXAMINATION(S): ECG 12-LEAD FINAL REPORT Procedure: ELECTROCARDIOGRAM RESULT Heart Rate 93 P-R Interval 148 ms QRS Interval 80 ms QT Interval 324 ms QTC Interval 403 ms P [place] 72 deg QRS [place] 47 deg T Wave [place] 0 deg DATE: 07/26/2023 10:59 SINUS RHYTHM Summary: Normal ECG Electronically signed by Pan Paez M.D. 07/26/2023 11:55 us Donald Josue MD ECG ORDERABLES Final Resul t [facility] * (ABNORMAL) Basic Metabolic Panel (BMP) (07/26/2023 10:37 AM EST) Sodium 138 136 - 145 mmol/L 07/26/2023 11:12 AM [facility] Comment: (note) Excess protein and/or lipids can falsely decrease sodium levels (pseudo hyponatremia). Potassium 3.6 3.5 - 5.1 mmol/L 07/26/2023 11:12 AM [facility] Comment:Falsely elevated pot assium can occur in patients with high WBC or platelet counts. Chloride 103 98 - 107 mmol/L 07/26/2023 11:12 AM [facility] Comment: (note) Falsely elevated chloride levels can be seen in patients taking medications which contain bromide. Carbon Dioxide 26 22 - 29 mmol/L 07/26/2023 11:12 AM [facility] Anion Gap 9 5 - 13 (arb'U) 07/26/2023 11:12 AM [facility] Comment: (note) Calculation- Na - (Cl + CO2) Glucose 128(H) 71 - 99 mg/dL 07/26/2023 11:12 AM [facility] Comment: (note) Reference range based on inpatient hypo/hyperglycemic treatment levels. A random glucose =/>200 is concerning for poor control. Blood Urea Nitrogen (BUN) 11 8 - 26 mg/dL 07/26/2023 11:12 AM [facility] Creatinine-Bloo d 1.26(H) 0.73 - 1.18 mg/dL 07/26/2023 11:12 [facility] BUN/Creatinine Ratio 8.7 RATIO 07/26/2023 11:12 AM [facility] Estimated GFR (Cr) 64 >60 /1.73 m2 07/26/2023 11:12 AM [facility] Comment: (note) eGFR calculated based on IDMS traceable, enzymatic creatinine method using the CKD-EPI 2020 equation. Calcium 9.3 8.4 - 10.2 mg/dL 07/26/2023 11:12 AM [facility] Plasma BLOOD SPECIMEN FROM PATIENT / Unknown 07/26/2023 10:37 AM EST 07/26/2023 10:41 AM EST us Donald Josue MD LAB BLOOD ORDERABLES Final Result [facility] ([id number]) [address] [facility] [place] [address] [facility] [place] [place] [address] * (ABNORMAL) .CBC w/Diff (07/26/2023 10:37 AM EST) White Blood Count 10.06 4.5 - 11.0 10*3/uL 07/26/2023 10:49 AM [facility] Red Blood Count 4.75 4.5 - 5.9 10*6/uL 07/26/2023 10:49 AM [facility] Hemoglobin 15.8 13.5 - 17.5 g/dL 07/26/2023 10:49 AM [facility] Hematocrit 46.1 41.0 - 53.0 % 07/26/2023 10:49 AM [facility] Mean Corpuscular Volume 97.1 80.0 - 100.0 fL 07/26/2023 10:49 AM [facility] Mean Corpuscular Hemoglobin 33.3 26.0 - 34.0 pg 07/26/2023 10:49 AM [facility] Mean Corpuscular HGB Conc 34.3 31.0 - 37.0 g/dL 07/26/2023 10:49 AM [facility] Red Cell Distribution Width-CV 13.8 12.0 - 16.8 % 07/26/2023 10:49 AM [facility] Platelet Count 257 140 - 440 10*3/uL 07/26/2023 10:49 AM [facility] Mean Platelet Volume 9.4 8.4 - 12.4 fL 07/26/2023 10:49 AM [facility] Diff Type Hospital CBC w/AutoDiff (arb'U) 07/26/2023 10:49 AM [facility] Neutrophils % 73.3 45 - 80 % 07/26/2023 10:49 AM [facility] Lymphocyte % 14.5(L) 15 - 50 % 07/26/2023 10:49 AM [facility] Monocyte % 6.6 0 - 15 % 07/26/2023 10:49 AM [facility] Eosinophil% 4.9 0 - 7 % 07/26/2023 10:49 AM [facility] BASO% 0.4 0 - 2 % 07/26/2023 10:49 AM [facility] Immature Granulocyte% 0.3 0.0 - 1.0 % 07/26/2023 10:49 AM [facility] Nucleated RBC % 0 0 /100(WBC) 07/26/2023 10:49 AM [facility] Neutrophil Abs 7.38 2.0 - 8.8 10*3/uL 07/26/2023 10:49 AM [facility] Lymphocyte-Absol uzma 1.46 0.7 - 5.5 10*3/uL 07/26/2023 10:49 AM [facility] Monocyte Absolute 0.66 0.0 - 1.7 10*3/uL 07/26/2023 10:49 AM [facility] EOS-Absolute 0.49 0.0 - 0.8 10*3/uL 07/26/2023 10:49 AM [facility] Basophil Abs 0.04 0.0 - 0.2 10*3/uL 07/26/2023 10:49 AM [facility] Immature Granulocyte Abs 0.03 0.00 - 0.10 10*3/uL 07/26/2023 10:49 AM [facility] Whole Blood BLOOD SPECIMEN FROM PATIENT / Unknown 07/26/2023 10:37 AM EST 07/26/2023 10:40 AM EST us Donald Josue MD LAB BLOOD ORDERABLES Final Result [facility] ([id number]) [place] [address] [place] [address] documented in this encounter Visit Diagnoses Diagnosis Pre-operative cardiovascular examination, new EKG abnormalities c/w ischemia documented in this encounter Care Teams Power Sewing Machine Operator Relationship Specialty Start Date End Date Keanu Brooks DO PCP - General Family Medicine 01/14/20 documented as of this encounter
--- OUTSIDE RECORDS SUMMARY | 2024-10-10 22:52 | XMS_ITS | Encounter Summary ---
Author Organization [facility] Address [address] [place] [address] Care Team Providers Care Press Operator Helper Name Role Phone Keanu Brooks DO Primary Care Provider [phone] Encounter Details Date Type Department Care Team (Late st Contact Info) Description 03/01/2022 10:17 AM EDT - 03/01/2022 10:54 AM EDT Hospital Encounter [facility] Pre Admission Testing [address] [address], [address] [place] [address] [place] [address] [facility] [address] [place], [place] [address] Discharge Disposition: Home or Self Care Social [...] suspected to have Coronavirus/COVID-19? No / Unsure 03/01/2022 10:03 AM EDT documented as of this encounter Last Filed Vital Signs Vital Sign Reading Time Taken Comments Blood Pressure 111/72 03/01/2022 10:23 AM EDT Pulse 90 03/01/2022 10:23 AM EDT Temperature - - Respiratory Rate - - Oxygen Saturation 98% 03/01/2022 10:23 AM EDT Inhaled Oxygen Concentration - - Weight 90.7 kg (200 lb) 03/01/2022 10:23 AM EDT Height 172.7 cm (5' 8 ) 03/01/2022 10:23 AM EDT Body Mass Index 30.41 03/01/2022 10:23 AM EDT documented in this encounter Functional Status * Patient's Vision Adequate to Safely Complete Daily Activities Answer Date of Assessment Author Yes 02/16/2013 1:00 PM EDT Delmer Ceja RN documented as of this encounter Medications at Time of Discharge albuterol (PROVENTIL HFA;VENTOLIN HFA) 108 (90 BASE) MCG/ACT inhaler Inhale 2 puffs into the lungs every 6 (six) hours as needed for Wheezing . allopurinol (ZYLOPRIM) 300 MG tablet Take 300 mg by mouth daily . 07/31/2019 fexofenadine (AJ) 180 MG tablet Take 180 mg by [...] capsule Take 100 Units by mouth daily. albuterol HFA 108 (90 Base) MCG/ACT inhaler Inhale 2 puffs into the lungs. 12/22/2018 2 allopurinol (ZYLOPRIM) 100 MG tablet TAKE 1 TABLET BY MOUTH EVERY DAY 0 07/09/2019 2 apixaban (ELIQUIS) 2.5 MG tabletIndications :PostOp DVT Proph (2.5mg BID) Take 1 tablet by mouth 2 (two) times daily. 60 tablet 03/31/2022 3 Cholecalciferol (VITAMIN D) 25 MCG (1000 UNIT) tablet Take 1,000 Units by mouth daily. 2 DULERA 200-5 MCG/ACT AERO inhaler Inhale 2 puffs into the lungs 2 (two) times daily . 3 05/28/2019 2 fluticasone (FLONASE) 50 MCG/ACT nasal spray SPRAY 2 SPRAYS INTO EACH NOSTRIL EVERY DAY 1 05/28/2019 2 lisinopril (PRINIVIL,ZESTRIL ) 10 MG tablet Take 10 mg by mouth daily 2 lisinopril-hydroC HLOROthiazide (PRINZIDE,ZESTORE TIC) 20-25 MG Take 1 tablet by mouth. 01/08/2019 2 Mometasone Furo-Formoterol Fum (DULERA IN) Inhale into the lungs 2 montelukast (SINGULAIR) 10 MG tablet Take 10 mg by mouth nightly . 3 05/28/2019 2 mupirocin (BACTROBAN) 2 % ointment Apply 1 Application topically 2 (two) times daily for 5 days Apply to each nostril bid for 5 days before surgery and morning of surgery. 22 g 03/25/2022 2 oseltamivir (TAMIFLU) 75 MG capsuleIndication s:Influenza-like illness Take 1 capsule by mouth 2 (two) times daily for 5 days 10 capsule 0 12/04/2015 2 oseltamivir (TAMIFLU) 75 MG capsuleIndication s:Influenza Take 1 capsule (75 mg total) by mouth 2 (two) times daily. 10 capsule 0 09/22/2012 2 oxyCODONE-acetami nophen (PERCOCET) 7.5-325 MG Take 1 tablet by mouth every 4 (four) hours as needed for Pain. Max Daily Amount: 6 tablets 42 tablet 03/31/2022 10:44 AM EDT 03/31/2022 2 sertraline (ZOLOFT) 25 MG tablet Take 25 mg by mouth daily as needed. 09/01/2020 3 SPIRIVA RESPIMAT AERS USE 2 INHALATIONS ONCE DAILY 1 05/28/2019 2 tadalafil (CIALIS) 20 MG tablet Take 20 mg by mouth. 07/23/2019 2 tadalafil (CIALIS) 20 MG tabletIndications :Erectile Dysfunction Take 1 tablet (20 mg total) by mouth daily as needed for Erectile Dysfunction. 10 tablet 0 08/04/2013 2 testosterone cypionate (DEPOTESTOTERONE CYPIONATE) 200 MG/ML injection INJECT O.5MG EVERY WEEK 10/18/2018 2 traZODone (DESYREL) 100 MG tablet Take 100 mg by mouth. 01/08/2019 2 traZODone (DESYREL) 100 MG tablet Take 1 tablet by mouth nightly 30 tablet 3 04/01/2014 2 traZODone (DESYREL) 100 MG tablet Take 0.5 tablets (50 mg total) by mouth nightly as needed for Sleep. 30 tablet 0 08/04/2013 2 documented as of this encounter H&P Notes * Ange Campos, MEDICAL RECORDS MANAGER - 03/01/2022 10:26 AM EDT History & Physical Patient Identification: Name: Yovanny Malin Age: 61 yr/o Sex: male : 1960 [...] , Disp: , Rfl: 3 ??? fexofenadine (AJ) 180 MG tablet, Take 180 mg by [...] (1.727 m), weight 90.7 kg (200 lb), [id number] %. Body mass index is 30.41 kg/m??. [...] -NPO 3 hours before surgery Patient given [facility] phone number to call with any questions Patient given 3 bottles of Ensure Pre-Surgery Disposition: planned observation Ange Campos 03/01/2022 documented in this encounter Miscellaneous Notes * Pre-Procedure Instructions - Archana Salmon RN - 03/01/2022 10:21 AM EDT Confirmed with patient date of arrival, procedure being performed, where to park, visitor policy, and reviewed diet instructions per surgeon's order. Patient instructed which medications to take per anesthesia guidelines. AVS with listed medications provided to patient. Instructed to bring CPAP andinhalers. Instructed patient to shower/bathe prior to surgery, using Dynahex-, discussed importance of thoroughly washing and drying umbilicus, and all skin folds. Written instruction sheet and bottle of Dynahex given to patient in PAT folder. Discussed importance of postoperative pain management, including use of pain scale. Written information included in PAT folder. If outpatient surgery scheduled, patient instructed to make arrangements for a ride home and for someone to stay with him/her for the first 24 hours after surgery. Patient is able to teach back all instructions listed above, and has been given opportunity to ask questions. Patient instructed to review PAT folder which contains written material listed below, and is encouraged to call [facility] with any questions. *PRE-OPERATIVE INSTRUCTIONS *TIPS TO PREVENT FALLS *KEEPING YOU SAFE AND SECURE *SURGICAL WOUND SITE CARE *PAIN MANAGEMENT AFTER SURGERY *SELF QUARANTINE INSTRUCTIONS *CHLORHEXIDENE (CHG) BATHING INSTRUCTIONS Patient instructed to take on DOS: Dulera, flonase, ja, spiriva, zoloft, and tylenol. May use rescue inhaler if needed Discussed ERAS protocol with patient. Discussed that surgery causes stress to the body, and one of the primary reasons for participating in ERAS is to help decrease this physical stress, allowing better and faster healing. Discussed the goals of ERAS: fewer postop complications after bowel surgery,earlier return of bowel function, shorter hospital stay. Discussed patient s responsibility to follow diet instructions, get out of bed and be active postop, and use non- narcotic pain relief measuresas much as possible. Elements of ERAS discussed: CLEAR liquids up to 3 hours before surgery Soft foods beginning 4 hrs postop Chewing gum to aid gastric motility Early and frequent ambulation Out of bed for all meals Non-narcotic pain control options: Pain block (Spinal, TAP, Epidural) NSAIDS Acetaminphen Gabapentin Instructed patient in detail regarding preop liquid diet, emphasizing the importance of clear liquids only, using DIET INSTRUCTION SHEET as a guide Patient is able to teach back/show back all instructions and has been given opportunity to ask questions. Written patient education given: DIET INSTRUCTION SHEET, INFORMATION SHEET/ CHECKLIST FOR DAY BEFORE/SURGERY DAY DIET; ERAS INFORMATIONAL BOOKLET ALSO SENT HOME W/PT: ENSURE CLEAR PRESURGERY X3 BOTTLES Total joint class booklet provided to patient in PAT. Educated patient on how to register for virtual class. Patient instructed to review booklet, and to call with any questions. Instructed patient how to prepare home for safety following surgery, the role of their project manager/team coach, and the importance of joint specific exercises. documented in this encounter Plan of Treatment Upcoming Encounters Date Type Department Care Team (Late st Contact Info) Description 01/24/2025 1:40 PM EDT Office Visit [facility] [address] [facility] [address] [place] [address] Damien Cárdenas, MEDICAL RECORDS MANAGER [address] [place] [address] documented as of this encounter Procedures Procedure Name Priority Date/Time Associated Diagnosis Comments XR CHEST 2VW Routine 03/01/2022 11:18 AM EDT ECG 12-LEAD Routine 03/01/2022 10:34 AM EDT HB CBC/PLT/AUTO DIFF Routine 03/01/2022 10:27 AM EDT HB BMP W TOTAL CALCIUM Routine 03/01/2022 10:27 AM EDT documented in this encounter Results * XR Chest 2Vw (03/01/2022 11:18 AM EDT) Anatomical Region Laterality Modality Chest [facility] Radiographic Imaging 03/01/2022 11:2 1 AM EDT Narrative 03/01/2022 11:22 AM EDT REVIEWING YOUR TEST RESULTS IN [facility] IS NOT A SUBSTITUTE FOR DISCUSSING THOSE RESULTS WITH YOUR HEALTH CARE PROVIDER. PLEASE CONTACT YOUR PROVIDER VIA [facility] TO DISCUSS ANY QUESTIONS OR CONCERNS YOU MAY HAVE REGARDING THESE TEST RESULTS. RADIOLOGY REPORT FACILITY: ??[facility] UNIT/AGE/GENDER: M.RAD ??OP ?AGE:61 Y ?SEX:M PATIENT NAME/: ??HIGH, YOVANNY, D ?1960 UNIT NUMBER: ??[id number] ACCESSION NUMBER: ??[id number] EXAMINATION: XR CHEST 2VW DATE: 03/01/2022 HISTORY: Hypertension. COMPARISON: None. FINDINGS: Two views of the chest demonstrate clear lungs. There is no pneumothorax or pleural effusion. The heart size and mediastinal contour are normal. There has been prior cervical corpectomy and fusion. IMPRESSION: No acute cardiopulmonary radiographic abnormality. Dictated by: Rush Simon M.D. Images and Report reviewed and interpreted by: Rush Simon M.D. <PS><Electronically signed by: Rush Simon M.D.> 03/01/2022 112 112 112 Procedure Note Rush Simon MD - 03/01/2022 REVIEWING YOUR TEST RESULTS IN [facility] IS NOT A SUBSTITUTE FORDISCUSSING THOSE RESULTS WITH YOUR HEALTH CARE PROVIDER. PLEASE CONTACT YOUR PROVIDER [facility]IA [facility] TO DISCUSS ANY QUESTIONS ORCONCERNS YOU MAY HAVE REGARDING THESE TEST RESULTS. RADIOLOGY REPORT FACILITY: [facility] UNIT/AGE/GENDER: MZayRAD OP AGE:61 Y SEX:M PATIENT NAME/: YOVANNY MALIN D 1960 UNIT NUMBER: [id number] ACCESSION NUMBER: [id number] EXAMINATION: XR CHEST 2VW DATE: 03/01/2022 HISTORY: Hypertension. COMPARISON: None. FINDINGS: Two views of the chest demonstrate clear lungs. There is nopneumothorax or pleural effusion. The heart size and mediastinal contourare normal. There has been prior cervical corpectomy and fusion. IMPRESSION: No acute cardiopulmonary radiographic abnormality. Dictated by: Rush Simon M.D. Images and Report reviewed and interpreted by: Rush Simon M.D. <PS><Electronically signed by: Rush Simon M.D.> 03/01/2022 112 1120 112 us Cholo Dotson MD IMG DIAGNOSTIC IMAGING ORD ERABLES Final Result * EKG 12 lead (03/01/2022 10:34 AM EDT) 03/01/2022 10:3 4 AM EDT Narrative [facility] - 03/01/2022 10:57 AM EDT CARDIOLOGY REPORT FACILITY: [facility] PATIENT NAME/: YOVANNY MALIN ?1960 UNIT/AGE/GENDER: ?AGE: 61 YR ?GENDER: M UNIT NUMBER: [id number] ACCESSION NUMBER: [id number] DATE OF EXAM: 03/01/2022 ??10:34 EXAMINATION(S): ECG 12-LEAD FINAL REPORT Procedure: ELECTROCARDIOGRAM RESULT Heart Rate ? 89 P-R Interval ? 152 ms QRS Interval ? 78 ms QT Interval ? 324 ms QTC Interval ? 395 ms P L[place] ? 63 deg QRS [place] ? 36 deg T Wave [place] ? 17 deg DATE: 03/01/2022 10:34 SINUS RHYTHM Summary: Normal ECG Electronically signed by Brody Barton M.D. ??03/01/2022 10:57 Procedure Note Brody Barton MD - 03/01/2022 CARDIOLOGY REPORT FACILITY: [facility] PATIENT NAME/: YOVANNY MALIN 1960 UNIT/AGE/GENDER: AGE: 61 YR GENDER: M UNIT NUMBER: [id number] ACCESSION NUMBER: [id number] DATE OF EXAM: 03/01/2022 10:34 EXAMINATION(S): ECG 12-LEAD FINAL REPORT Procedure: ELECTROCARDIOGRAM RESULT Heart Rate 89 P-R Interval 152 ms QRS Interval 78 ms QT Interval 324 ms QTC Interval 395 ms P [place] 63 deg QRS [place] 36 deg T Wave [place] 17 deg DATE: 03/01/2022 10:34 SINUS RHYTHM Summary: Normal ECG Electronically signed by Brody Barton M.D. 03/01/2022 10:57 us Cholo Dotson MD ECG ORDERABLES Final Resu lt [place] [facility]CKCPACS * (ABNORMAL) Basic Metabolic Panel (BMP) (03/01/2022 10:27 AM EDT) [facility] Sodium 139 136 - 145 mmol/L 03/01/2022 11:19 AM EDT [facility] Comment: (note) Excess protein and/or lipids can falsely decrease sodium levels (pseudo hyponatremia). Potassium 3.9 3.5 - 5.1 mmol/L 03/01/2022 11:19 AM [facility] Chloride 107 98 - 107 mmol/L 03/01/2022 11:19 AM [facility] Comment: (note) Falsely elevated chloride levels can be seen in patients taking medications which contain bromide. Carbon Dioxide 25 22 - 29 mmol/L 03/01/2022 11:19 AM [facility] Anion Gap 7 5 - 13 (arb'U) 03/01/2022 11:19 AM [facility] Comment: (note) Calculation- Na - (Cl + CO2) Glucose 138 71 - 139 mg/dL 03/01/2022 11:19 AM [facility] Comment: (note) New range effective 12/08/2021. Reference range based on inpatient hypo/hyperglycemic treatment levels. A random glucose =/>200 is concerning for poor control. Blood Urea Nitrogen (BUN) 20 8 - 26 mg/dL 03/01/2022 11:19 AM [facility] Creatinine-Bloo d 1.31(H) 0.73 - 1.18 mg/dL 03/01/2022 11:19 AM [facility] BUN/Creatinine Ratio 15.3 RATIO 03/01/2022 11:19 AM [facility] Estimated GFR 55(L) >60 /1.73 m2 03/01/2022 11:19 AM [facility] Comment: (note) Results do not take into account body mass. ??Valid for patients 18 to 70 years of age. Estimated GFR if -Melany n >60 >60 /1.73 m2 03/01/2022 11:19 AM [facility] Comment: (note) Results do not take into account body mass. ??Valid for patients 18 to 70 years of age. Calcium 9.6 8.4 - 10.2 mg/dL 03/01/2022 11:19 AM [facility] Plasma BLOOD SPECIMEN FROM PATIENT / Unknown 03/01/2022 10:27 AM EDT 03/01/2022 10:55 AM EDT us Cholo Dotson MD LAB BLOOD ORDERABLES Final Result [facility] [id number] [facility] [address] [place] [address] * CBC w/Diff (03/01/2022 10:27 AM EDT) White Blood Count 6.11 4.5 - 11.0 10*3/uL 03/01/2022 11:04 AM EDT [facility] Red Blood Count 4.82 4.5 - 5.9 10*6/uL 03/01/2022 11:04 AM EDT [facility] Hemoglobin 16.4 13.5 - 17.5 g/dL 03/01/2022 11:04 AM [facility] Hematocrit 46.9 41.0 - 53.0 % 03/01/2022 11:04 AM [facility] Mean Corpuscular Volume 97.3 80.0 - 100.0 fL [facility] Corp[facility] Hemoglobin 34.0 26.0 - 34.0 pg 03/01/2022 11:04 AM [facility] Mean Corpuscular HGB Conc 35.0 31.0 - 37.0 g/dL 03/01/2022 11:04 AM [facility] Red Cell Distribution Width-CV 13.3 12.0 - 16.8 % 03/01/2022 11:04 AM [facility] Platelet Count 196 140 - 440 10*3/uL [facility] Mean Platelet Volume 9.8 8.4 - 12.4 fL 03/[facility] CBC w/AutoDiff (arb'U) 03/01/2022 11:04 AM [facility] Neutrophils % 62.3 45 - 80 % 03/01/2022 11:04 AM [facility] Lymphocyte % 24.1 15 - 50 % 03/01/2022 11:04 AM [facility] Monocyte % 9.7 0 - 15 % 03/01/2022 11:04 AM T [facility] Eosinophil% 2.9 0 - 7 % 03/01/2022 11:04 AM EDT [facility] BASO% 0.5 0 - 2 % 03/01/2022 11:04 AM EDT [facility] Immature Granulocyte% 0.5 0.0 - 1.0 % 03/01/2022 11:04 AM EDT [facility] Nucleated RBC % 0 0 /100(WBC) 03/01/2022 11:04 AM [facility] Neutrophil Abs 3.81 2.0 - 8.8 10*3/uL 03/01/2022 11:04 AM EDT [facility] Lymphocyte-Absol morongo 1.47 0.7 - 5.5 10*3/uL 03/01/2022 11:04 AM EDT [facility] Monocyte Absolute 0.59 0.0 - 1.7 10*3/uL 03/01/2022 11:04 AM EDT [facility] EOS-Absolute 0.18 0.0 - 0.8 10*3/uL 03/01/2022 11:04 AM [facility] Basophil Abs 0.03 0.0 - 0.2 10*3/uL 03/01/2022 11:04 AM EDT [facility] Immature Granulocyte Abs 0.03 0.00 - 0.10 10*3/uL 03/01/2022 11:04 AM [facility] Whole Blood BLOOD SPECIMEN FROM PATIENT / Unknown 03/01/2022 10:27 AM EDT 03/01/2022 10:56 AM EDT us Cholo Dotson MD LAB BLOOD ORDERABLES Final Result Performing Organization Address City/State/[facility] Co de Phone Number [facility] [address] [place] [address] [address] [place] [address] documented in this encounter Visit Diagnoses Not on filedocumented in this encounter Care Teams Press Operator Helper Relationship Specialty Start Date End Date Keanu Brooks DO PCP - General Family Medicine 01/14/20 documented as of this encounter
--- OUTSIDE RECORDS SUMMARY | 2024-10-10 22:52 | XMS_ITS | Encounter Summary ---
Author Organization [facility] Address [address] [place] [address] Care Team Providers Care Game Show Host Name Role Phone Keanu Brooks DO Primary Care Provider [phone] Encounter Details Date Type Department Care Team (Late st Contact Info) Description 03/01/2022 10:55 AM EDT - 03/01/2022 11:59 PM EDT Hospital Encounter [facility] Radiology [address] [place] [address] [place] [address] [facility] [address] [place], [place] [id number] Discharge Disposition: Home or Self Care Social [...] 08/04/2013 2 documented as of this encounter Plan of Treatment Upcoming Encounters Date Type Department Care Team (Late st Contact Info) Description 01/24/2025 1:40 PM EDT Office Visit [facility] - [address] [address] Damien Cárdenas, TANG [address] [place] [address] documented as of this encounter Procedures Procedure Name Priority Date/Time Associated Diagnosis Comments XR CHEST 2VW Routine 03/01/2022 11:18 AM EDT documented in this encounter Results * XR Chest 2Vw (03/01/2022 11:18 AM EDT) Anatomical Region Laterality Modality Chest [facility] Radiographic Imaging 03/01/2022 11:2 1 AM EDT Narrative 03/01/2022 11:22 AM EDT REVIEWING YOUR TEST RESULTS IN [facility] IS NOT A SUBSTITUTE FOR DISCUSSING THOSE RESULTS WITH YOUR HEALTH CARE PROVIDER. PLEASE CONTACT YOUR PROVIDER VIA [facility] TO DISCUSS ANY QUESTIONS OR CONCERNS YOU MAY HAVE REGARDING THESE TEST RESULTS. RADIOLOGY REPORT FACILITY: ??[facility] UNIT/AGE/GENDER: M.RAD ??OP ?AGE:61 Y ?SEX:M PATIENT NAME/: ??YOVANNY MALIN D ?1960 UNIT NUMBER: ??[id number] ACCESSION NUMBER: ??[id number] EXAMINATION: XR CHEST 2VW DATE: 03/01/2022 HISTORY: [...] by: Rush Simon M.D.> 03/01/2022 112 1120 1120 Procedure Note Rush Simon MD - 03/01/2022 REVIEWING YOUR TEST RESULTS IN [facility] IS NOT A SUBSTITUTE FORDISCUSSING THOSE RESULTS WITH YOUR HEALTH CARE PROVIDER. PLEASE CONTACT YOUR PROVIDER VIA [employer] TO DISCUSS ANY QUESTIONS ORCONCERNS YOU MAY HAVE REGARDING THESE TEST RESULTS. RADIOLOGY REPORT FACILITY: [facility] UNIT/AGE/GENDER: M.RAD OP AGE:61 Y SEX:M PATIENT NAME/: YOVANNY MALIN D 1960 UNIT NUMBER: [id number] ACCESSION NUMBER: [id number] EXAMINATION: XR CHEST 2VW DATE: 03/01/2022 HISTORY: [...] <PS><Electronically signed by: Rush Simon M.D.> 03/01/2022 1121 112 1120 us Cholo Dotson MD IMG DIAGNOSTIC IMAGING ORD ERABLES Final Result documented in this encounter Visit Diagnoses Not on filedocumented in this encounter Care Teams Game Show Host Relationship Specialty Start Date End Date Keanu Brooks DO PCP - General Family Medicine 01/14/20 documented as of this encounter
--- OUTSIDE RECORDS SUMMARY | 2024-10-10 22:52 | XMS_ITS | Encounter Summary ---
Author Organization [facility] Address [address] [place] [address] Care Team Providers Care Thread Grinder Name Role Phone Keanu Brooks DO Primary Care Provider [phone] [phone] Encounter Details Date Type Department Care Team (Latest Contact Info) Description 02/18/2022 11:59 PM EDT Hospital Encounter [facility] Pre Admission Testing [address] [address], [address] [place] [address] Arrived Discharge Disposition: Home or Self Care Social [...] suspected to have Coronavirus/COVID-19? No / Unsure 02/18/2022 4:25 PM EDT documented as of this encounter Last Filed Vital Signs Vital Sign Reading Time Taken Comments Blood Pressure - - Pulse - - Temperature - - Respiratory Rate - - Oxygen Saturation - - Inhaled Oxygen Concentration - - Weight 90.7 kg (200 lb) 02/18/2022 4:26 PM EDT Height 172.7 cm (5' 8 ) 02/18/2022 4:26 PM EDT Body Mass Index 30.41 02/18/2022 4:26 PM EDT documented in this encounter Functional [...] by mouth nightly . 3 05/28/2019 2 oseltamivir (TAMIFLU) 75 MG capsuleIndication s:Influenza-like [...] 08/04/2013 2 documented as of this encounter Miscellaneous Notes * Pre-Procedure Instructions - Archana Salmon RN - 02/18/2022 4:42 PM EDT Spoke with patient for scheduled PAT phone call appointment. Confirmed date and location of procedure. Reviewed patient's medical history, surgical history, and medication list. Instructed patient tostop all vitamins and supplements 10 days prior to surgery if applicable. Made preop PAT lab visit and preop COVID test appointment if applicable. All locations and times verified with patient. Patien t understands that PAT folder containing the information below will be reviewed and given to patient at PAT lab appointment. Discussed importance of postoperative pain management, including use of pain scale. Written information to be included in PAT folder. If outpatient surgery scheduled, patient instructed to make arrangements for a ride home and for someone to stay with him/her for the first 24 hours after surgery. Patient is able to read back all instructions listed above, and has been given opportunity to ask questions. Patient to be given PAT folder containing written material listed below, and is encouraged to review these materials. *KEEPING YOU SAFE AND SECURE *SURGICAL WOUND SITE CARE *PAIN MANAGEMENT AFTER SURGERY *SELF QUARANTINE INSTRUCTIONS *CHLORHEXIDENE (CHG) BATHING INSTRUCTIONS *[facility] PRE-OPERATIVE INSTRUCTIONS *TIPS TO PREVENT FALLS *AVS with medications to take morning of surgery documented in this encounter Plan of Treatment Upcoming Encounters Date Type Department Care Team (Late st Contact Info) Description 01/24/2025 1:40 PM EDT Office Visit [facility] [place] [address] [facility] [address] [place] [address] Damien Cárdenas APRN [address] [place] [address] documented as of this encounter Visit Diagnoses Not on filedocumented in this encounter Care Teams Thread Grinder Relationship Specialty Start Date End Date Keanu Brooks DO PCP - General Family Medicine 01/14/20 documented as of this encounter
--- OUTSIDE RECORDS SUMMARY | 2024-10-10 22:52 | XMS_ITS | Encounter Summary ---
Author Organization [facility] Address [address] [place] [address] Care Team Providers Care Aerial Hurricane Hunter Name Role Phone Keanu Brooks DO Primary Care Provider [phone] Reason for Referral * Consultation (Urgent (1-2 days)) - Closed Specialty Diagnoses / Procedures Referred By Moshe denis Referred To Contact Orthopedic Surgery Diagnoses Acute pain of left shoulder Acute pain of left knee Pain and swelling of right knee Coby Mcdonough APRN [address] [address] Phone: tel: fax: Referral ID Status Reason Start Date Expiration Date Visits Requested Visits Authorized [id number] Closed Patient Preference 01/18/2023 02/18/2024 1 1 Reason for Visit * Reason Comments left shoulder Off and on since Aug, he is reporting left shoulder and both knees are painful. Encounter Details Date Type Department Care Team (Late st Contact Info) Description 01/18/2023 9:30 AM EDT Office Visit [address] [place] [address] Coby Mcdonough APRN [address] [address] Pain and swelling of right knee (Primary Dx); Acute pain of left shoulder; Acute pain of left knee Social History Tobacco Use Types Packs/Day Years [...] Sign Reading Time Taken Comments Blood Pressure 132/76 01/18/2023 9:33 AM EDT Pulse 95 01/18/2023 9:33 AM EDT Temperature 36.7 ??C (98 ??F) 01/18/2023 9:33 AM EDT Respiratory Rate 15 01/18/2023 9:33 AM EDT Oxygen Saturation 98% 01/18/2023 9:33 AM EDT Inhaled Oxygen Concentration - - Weight 89.8 kg (198 lb) 01/18/2023 9:33 AM EDT Height 172.7 cm (5' 8 ) 01/18/2023 9:33 AM EDT Body Mass Index 30.11 01/18/2023 9:33 AM EDT documented in this encounter Functional [...] cannot be sent through Care Everywhere. * Swollen Joint (Equipment Validation Engineer) (Romanian) documented in this encounter Progress Notes * Coby McdonoughTANG - 01/18/2023 9:47 AM EDT Patient Identification: Name: Yovanny Malin Age: 62 yr/o Gender: male : 1960 PCP: Keanu Brooks DO Chief Complaint: Yovanny Malin is presenting today for left shoulder (Off and on since August, he is reporting leftshoulder and both knees are painful. ) . History of Present Illness: Shoulder Pain This is a new problem. Symptoms are gradually worsening. Possible cause(s): lifting (patient stateshe has been working out more then usual and is afraid he over did it). The incident location was gym and home. Yovanny has pain in his left shoulder. The pain does not radiate. He describes the pain asaching and sharp. Pain severity is described as mild. His symptoms are aggravated by activity and lifting. Patient denies loss of motion, numbness and tingling. He has tried analgesics (aleve) for the symptoms. There has been no improvement with treatment. Knee Pain The incident occurred more than 2 days ago. The incident occurred at home. Injury mechanism: think maybe due to working out too much. Pain is located in the left knee and right knee. Characteristics of the affected site include swelling (right knee is swollen). The quality of the pain is described as aching. The pain is mild. The pain has been constant since onset. Pertinent negatives include no numbness, no inability to bear weight and no tingling. He reports no foreign bodies present. The symptoms are aggravated by activity. He has tried NSAIDs for the symptoms. The treatment provided no relief. History, Medications, [...] laminectomy Current Medications: Outpatient Medications as of 01/18/2023 Medication Sig Dispense Refill ??? albuterol (PROVENTIL [...] by mouth daily. Allergies: Allergies as of 01/18/2023 Review status set to Review Complete by Amaris Quintana on 01/18/2023 No Known Allergies Family Medical History: Family [...] User Review of Symptoms: Review of Systems Constitutional: Negative for activity change. Musculoskeletal: Positive for arthralgias (left and right knee and left shoulder) and joint swelling (right knee). Neurological: Negative for tingling and numbness. Physical Exam: BP 132/76 Pulse 95 Temp 98 ??F (36.7 ??C) (Oral) Resp 15 Ht 5' 8 (1.727 m) Wt 198 lb (89.8 kg) SpO2 98% BMI 30.11 kg/m?? Physical Exam Vitals reviewed. Musculoskeletal: Left shoulder: No swelling, effusion or tenderness. Normal range of motion. Right knee: Swelling (mild-moderate) present. No effusion or erythema. Normal range of motion. No tenderness. Left knee: No swelling, effusion or erythema. Normal range of motion. No tenderness. Neurological: Mental Status: He is alert. Psychiatric: Attention and Perception: Attention normal. Assessment/Plan: Diagnoses and orders/medications from this encounter 1. Pain and swelling of right knee XR Knee 3 Vws LT Ambulatory Referral to Adult Orthopedic Surgery 2. Acute pain of left shoulder XR Shoulder Comp Min 2 Vw LT methylPREDNISolone (MEDROL DOSPACK) 4 MG tablet Ambulatory Referral to Adult Orthopedic Surgery 3. Acute pain of left knee XR Knee 3 Vws RT On-site [facility] methylPREDNISolone (MEDROL DOSPACK) 4 MG tablet Ambulatory Referral to Adult Orthopedic Surgery Encounter Medications Signed Prescriptions Disp Refills ??? methylPREDNISolone (MEDROL DOSPACK) 4 MG tablet 21 tablet 0 Sig: Use as directed on package. Results this visit (if any) Results for orders placed or performed in visit on 01/18/23 XR Shoulder Comp Min 2 Vw LT Result Value Ref Range [facility] RAD WORKSTATION ID [id number] XR Knee 3 Vws RT Result Value Ref Range [facility] RAD WORKSTATION ID [id number] XR Knee 3 Vws LT Result Value Ref Range [facility] RAD WORKSTATION ID [id number] Follow-up (if any) Return for Go to ER with new or worsening symptoms, Follow up with specialist in 1 week. Medical Decision Making No evidence of fracture or dislocation on preliminary read of xray- just mild dengerative changes. Will treat as indicated above and wait for official read from radiologist. RICE therapy advised. OTCand home remedies for symptom relief discussed. Red flag symptoms and return/ED precautions given. Follow up with PCP in 3 days advised for failure of symptom resolution. Patient is non toxic in appearance and in NAD. All questions and concerns were answered prior to leaving the room and he is in agreement with his tx plan. documented in this encounter Plan of Treatment Upcoming Encounters Date Type Department Care Team (Late st Contact Info) Description 01/24/2025 1:40 PM EDT Office Visit [facility] - [address] [place] [address] Damien Cárdenas APRN [address] [place] [address] Scheduled Referrals Name Type Priority Associated Diagnoses Order Schedule Ambulatory Referral to Adult Orthopedic Surgery Outpatient Referral Routine Acute pain of left shoulder Acute pain of left knee Pain and swelling of right knee Ordered: 01/18/2023 documented as of this encounter Procedures Procedure Name Priority Date/Time Associated Diagnosis Comments XR SHOULDER COMP MIN 2 VW LT Routine 01/18/2023 10:08 AM EDT Acute pain of left shoulder XR KNEE 3 VWS RT Routine 01/18/2023 10:0 8 AM EDT Acute pain of left knee XR KNEE 3 VWS LT Routine 01/18/2023 10:0 8 AM EDT Pain and swelling of right knee documented in this encounter Results * XR Knee 3 Vws LT (01/18/2023 10:08 AM EDT) [facility] RAD WORKSTATION ID [id number] S01 [place] POWERSCRIBE Anatomical Region Laterality Modality Knee [facility] Radiographic Imaging 01/18/2023 11:3 1 AM EDT Narrative 01/18/2023 11:36 AM EDT REVIEWING YOUR TEST RESULTS IN [facility] IS NOT A SUBSTITUTE FOR DISCUSSING THOSE RESULTS WITH YOUR HEALTH CARE PROVIDER. PLEASE CONTACT YOUR PROVIDER VIA [facility] TO DISCUSS ANY QUESTIONS OR CONCERNS YOU MAY HAVE REGARDING THESE TEST RESULTS. RADIOLOGY REPORT FACILITY: ??[facility] UNIT/AGE/GENDER: P.ICCD ??OP ?AGE:62 Y ?SEX:M PATIENT NAME/: ??, YOVANNY, D ?1960 UNIT NUMBER: ??[id number] ACCESSION NUMBER: ??[id number] EXAMINATION: 3-view left shoulder radiograph(s) DATE: 01/18/2023 [...] - 01/18/2023 REVIEWING YOUR TEST RESULTS IN [facility] IS NOT A SUBSTITUTE FORDISCUSSING THOSE RESULTS WITH YOUR HEALTH CARE PROVIDER. PLEASE CONTACT YOUR PROVIDER VIA [facility] TO DISCUSS ANY QUESTIONS ORCONCERNS YOU MAY HAVE REGARDING THESE TEST RESULTS. RADIOLOGY REPORT FACILITY: [facility]/AGE[facility] AGE:62 Y SEX:M PATIENT NAME/: YOVANNY MALIN D 1960 UNIT NUMBER: [id number] ACCESSION NUMBER: [id number] EXAMINATION: 3-view left shoulder radiograph(s) DATE: 01/18/2023 [...] 3 Vws RT (01/18/2023 10:08 AM EDT) Pathologist [facility] RAD WORKSTATION ID OBCRADNWK S01 [place] POWERSCRIBE Anatomical Region Laterality Modality Knee [facility] Radiographic Imaging 01/18/2023 11:3 1 AM EDT Narrative 01/18/2023 11:36 AM EDT REVIEWING YOUR TEST RESULTS IN [facility] IS NOT A SUBSTITUTE FOR DISCUSSING THOSE RESULTS WITH YOUR HEALTH CARE PROVIDER. PLEASE CONTACT YOUR PROVIDER VIA [facility] TO DISCUSS ANY QUESTIONS OR CONCERNS YOU MAY HAVE REGARDING THESE TEST RESULTS. RADIOLOGY REPORT FACILITY: ??[facility] UNIT/AGE/GENDER: P.ICCD ??OP ?AGE:62 Y ?SEX:M PATIENT NAME/: ??YOVANNY MALIN, Mary Ellen ?1960 UNIT NUMBER: ??[id number] ACCESSION NUMBER: ??[id number] EXAMINATION: 3-view left shoulder radiograph(s) DATE: 01/18/2023 [...] - 01/18/2023 REVIEWING YOUR TEST RESULTS IN [facility] IS NOT A SUBSTITUTE FORDISCUSSING THOSE RESULTS WITH YOUR HEALTH CARE PROVIDER. PLEASE CONTACT YOUR PROVIDER VIA [facility] TO DISCUSS ANY QUESTIONS ORCONCERNS YOU MAY HAVE REGARDING THESE TEST RESULTS. RADIOLOGY REPORT FACILITY: [facility] UNIT/AGE/GENDER: P.ICCD OP AGE:62 Y SEX:M PATIENT NAME/: MACHOYOVANNYMary Ellen BAKER 1960 UNIT NUMBER: [id number] ACCESSION NUMBER: [id number] EXAMINATION: 3-view left shoulder radiograph(s) DATE: 01/18/2023 [...] M.D.> 01/18/2023 1135 1131 1131 Coby Mcdonough [facility] IM[facility] DIAGNOSTIC IMAGING ORDERA BLES Final Result * XR Shoulder Comp Min 2 Vw LT (01/18/2023 10:08 AM EDT) [facility] RAD WORKSTATION ID OBCRADNWK S01 [place] POWERSCRIBE Anatomical Region Laterality Modality Shoulder [facility] Radiographic Imaging 01/18/2023 11:3 1 AM EDT Narrative 01/18/2023 11:36 AM EDT RE[facility]ING YOUR TEST RESULTS [facility] IS NOT A SUBSTITUTE FOR DISCUSSING THOSE RESULTS WITH YOUR HEALTH CARE PROVIDER. PLEASE CONTACT YOUR PROVIDER [facility]IA [facility] TO DISCUSS ANY QUESTIONS OR CONCERNS YOU MAY HAVE REGARDING THESE TEST RESULTS. RADIOLOGY REPORT FACILITY: ??[facility] UNIT/AGE/GENDER: P.ICCD ??OP ?AGE:62 Y ?SEX:M PATIENT NAME/: ??, YOVANNY, D ?1960 UNIT NUMBER: ??[id number] ACCESSION NUMBER: ??[id number] EXAMINATION: 3-view left shoulder radiograph(s) DATE: 01/18/2023 [...] - 01/18/2023 REVIEWING YOUR TEST RESULTS IN [facility] IS NOT A SUBSTITUTE FORDISCUSSING THOSE RESULTS WITH YOUR HEALTH CARE PROVIDER. PLEASE CONTACT YOUR PROVIDER VIA [facility] TO DISCUSS ANY QUESTIONS ORCONCERNS YOU MAY HAVE REGARDING THESE TEST RESULTS. RADIOLOGY REPORT FACILITY: [facility] UNIT/AGE/GENDER: PZayICCD OP AGE:62 Y SEX:M PATIENT NAME/: Mary Ellen AVILA 1960 UNIT NUMBER: [id number] ACCESSION NUMBER: [id number] EXAMINATION: 3-view left shoulder radiograph(s) DATE: 01/18/2023 [...] M.D.> 01/18/2023 1135 1131 1131 Coby Ceasar GOSSN IMG DIAGNOSTIC IMAGING ORDERA BLES Final Result documented in this encounter Visit Diagnoses Diagnosis Pain and swelling of right knee- Primary Acute pain of left shoulder Acute pain of left knee documented in this encounter Care Teams Aerial Hurricane Hunter Relationship Specialty Start Date End Date Keanu Brooks DO PCP - General Family Medicine 01/14/20 documented as of this encounter
--- OUTSIDE RECORDS SUMMARY | 2024-10-10 22:52 | XMS_ITS | Encounter Summary ---
Author Organization [facility] Address [address] [place] [address] Care Team Providers Care Stripper Opaquer Name Role Phone Keanu Brooks DO Primary Care Provider [phone] Encounter Details Date Type Department Care Team (Late st Contact Info) Description 07/26/2023 10:00 AM EST - 07/26/2023 10:15 AM EST Hospital Encounter [facility] [address] [place] [address] [place] [address] [facility] [address] [place], [place] [id number] Discharge Disposition: Home or Self Care Social [...] mg by mouth daily . 07/31/2019 fexofenadine (GABBEI) 180 MG tablet Take 180 [...] Description 01/24/2025 1:40 PM EDT Office Visit [facility] - [address] [address] Damien Cárdenas APRN [address] [place] [address] documented as of this encounter Visit Diagnoses Not on filedocumented in this encounter Care Teams Stripper Opaquer Relationship Specialty Start Date End Date Keanu Brooks DO PCP - General Family Medicine 01/14/20 documented as of this encounter
--- OUTSIDE RECORDS SUMMARY | 2024-10-10 22:53 | XMS_ITS | Encounter Summary ---
Author Organization [facility] Address [address] [place] [address] Care Team Providers Care Proced Tech Name Role Phone None, Physician Primary Care Provider Unavailabl e Encounter Details Date Type Department Care Team (Late st Contact Info) Description 06/15/2012 12:48 PM EDT - 06/15/2012 11:59 PM EDT Hospital Encounter [facility] Pre Admission Testing [address] [place] [address] [place] [id number] [facility] [address] [place], [place] [id number] Discharge Disposition: Home or Self Care Social History Tobacco Use Types Packs/Day Years Used Date Smoking Tobacco: Never Assessed Sex and Gender Information Value Date Recorded Sex Assigned at Not on file Legal Sex Male 4:52 PM EST Gender Identity Not on file Sexual Orientation Not on file documented as of this encounter Medications at Time of Discharge diclofenac (VOLTAREN) 75 MG EC tabletIndications :Left knee pain,Arthritis Take 1 tablet (75 mg total) by mouth 2 (two) times daily with meals. 60 tablet 0 05/24/2012 06/23/2012 traZODone (DESYREL) 100 MG tablet Take 100 mg by mouth as needed. 08/04/2013 documented as of this encounter Plan of Treatment Upcoming Encounters Date Type Department Care Team (Late st Contact Info) Description 01/24/2025 1:40 PM EDT Office Visit [facility] - [address] [place] [address] Damien Cárdenas APRN [address] [place], [place] [id number] documented as of this encounter Procedures Procedure Name Priority Date/Time Associated Diagnosis Comments CBC W/DIFF Routine 06/15/2012 1:33 PM EDT BASIC METABOLIC PANEL (BMP) Routine 06/15/2012 1:33 PM EDT ECG 12-LEAD Routine 06/15/2012 1:20 PM EDT documented in this encounter Results * (ABNORMAL) Basic Metabolic Panel(BMP) (06/15/2012 1:33 PM EDT) Sodium 143 137 - 145 MMOL/L [facility] ([id number]) Potassium 3.8 3.5 - 5.1 MMOL/L [facility] (07523) Chloride 107 98 - 107 MMOL/L [facility] (60917) CO2 24 22 - 30 MMOL/L [facility] (24965) Glucose 139(H) 74 - 106 MG/DL [facility] (58510) BUN 18 7 - 20 MG/DL [facility] (44987) Creatinine 1.1 0.7 - 1.5 MG/DL [facility] (97633) Calcium 9.2 8.4 - 10.2 MG/DL [facility] (72565) 06/15/2012 1:33 PM EDT 06/15/2012 1:55 PM EDT us Cholo Dotson MD LAB BLOOD ORDERABLES Final Result [facility] ([facility] ([id number]) [address] [place] [address] * (ABNORMAL) CBC w/Diff (06/15/2012 1:33 PM EDT) WBC 7.24 4.5 - 11.0 K/uL [facility] (52706) RBC 5.11 4.5 - 5.9 M/uL [facility] (84398) HGB 16.5 13.5 - 17.5 GM/DL [facility] ([facility]) HCT 46.5 41.0 - 53.0 % [facility] ([facility]) MCV 91.0 80.0 - 100.0 fl [facility] ([facility]) MCH 32.3 26.0 - 34.0 pg [facility] ([facility]) MCHC 35.5 31.0 - 37.0 g/dl [facility] ([facility]) RDW 13.7 12.0 - 16.8 % [facility] ([facility]) PLT 196 140 - 440 K/uL [facility] ([facility]) MPV 11.4(H) 6.7 - 10.8 fl [facility] ([facility]) NEUT% 61 45 - 80 % [facility] ([facility]) Lymph% 23 15 - 50 % [facility] ([facility]) Dorado% 7 0 - 15 % [facility] ([facility]) EOS% 8(H) 0 - 7 % [facility] ([facility]) BASO% 1 0 - 2 % [facility] ([facility]) IG% 0 0 % [facility] ([facility]) NRBC% 0 0 - 0 /100 WBC [facility] ([facility]) NEUT# 4.42 2.0 - 8.8 K/mm3 [facility] ([facility]) Lymph# 1.68 0.7 - 5.5 K/mm3 [facility] ([facility]) Dorado# 0.47 0.0 - 1.7 K/mm3 [facility] ([facility]) EOS# 0.61 0.0 - 0.8 K/mm3 [facility] ([facility]) Baso# 0.05 0.0 - 0.2 K/mm3 [facility] ([facility]) Immature GRAN# 0.01 <1 K/uL [facility] ([facility]) 06/15/2012 1:33 PM EDT 06/15/2012 1:55 PM EDT us Cholo Dotson MD LAB BLOOD ORDERABLES Final Result [facility] ([facility]) [facility] ([facility]) [address] [place] [address] * EKG 12 lead (06/15/2012 1:20 PM EDT) 06/15/2012 1:20 PM EDT Narrative [facility] - 06/16/2012 8:31 PM EDT CC: None,Nophysicikrystin; Cholo Dotson ??Attending Physician:Cholo Dotson, Ordering Physician:Cholo Dotson, Primary Care Physician:None,Nophysician. ?? ADMITTING DIAGNOSIS: MEDIAL MENISCAL TEAR LEFT KNEE ?ADMIT DATE/TIME: ?SERVICE DATE/TIME: 06/15/12 ?? 1302 ??PROCEDURES: EKG ?ELECTROCARDIOGRAM REPORT ??FACILITY: ??[facility] ??ROOM NUMBER: ?PATIENT NAME/: ??HIGH YOVANNY, ? 1960 ??UNIT NUMBER: ??[id number] ?ACCESSION NUMBER: ??[id number] ??DATE OF EXAM: ??06/15/2012 ??EXAMINATION(S): ??EKG ??ELECTROCARDIOGRAM REPORT ??57809: ?EKG Severity ?TMV ECG ?- NORMAL ECG - ?08827.22 ?Heart Rate ? TMV ECG ?88 ?bmp ??99122.4 ?P-R Interval ? TMV ECG ?140 ?ms ??26954.5 ?QRS Interval ?TMV ECG ?80 ?ms ??37157.6 ? QT Interval ?TMV ECG ?356 ?ms ??63136.7 ?QTC Interval ? TMV ECG ?431 ?ms ??20811.8 ?P Preston ? TMV ECG ?73 ?deg ??82625.9 ?QRS Preston ? TMV ECG ?62 ?deg ??69385.10 ?T Wave Preston ?TMV ECG ?2 ?deg ??DATE: 06/15/2012 ??FINDING(S):SINUS RHYTHM ??<Electronically signed by Young Adame> ??06/15/2012 1320 ?06/16/122027 Procedure Note Young Adame MD - 06/16/2012 CC: None,Nophysician; Cholo Dotson Attending Physician:Cholo Dotson, OrderingPhysician:Cholo Dotson, Primary Care Physician:None,Nophysician. ADMITTING DIAGNOSIS: MEDIAL MENISCAL TEAR LEFT KNEE ADMIT DATE/TIME: SERVICE DATE/TIME: 06/15/12 1302 PROCEDURES: EKG ELECTROCARDIOGRAM REPORT FACILITY: [facility] ROOM NUMBER: PATIENT NAME/: YOVANNY MALIN, 1960 UNIT NUMBER: [id number] ACCESSION NUMBER: [id number] DATE OF EXAM: 06/15/2012 EXAMINATION(S): EKG ELECTROCARDIOGRAM REPORT [id number]: EKG Severity TMV ECG - NORMAL ECG- 72901.22 Heart Rate TMV ECG 88bmp 21660.4 P-R Interval TMV ECG 140ms 78059.5 QRS Interval TMV ECG 80ms 54126.6 QT Interval TMV ECG 356ms 90162.7 QTC Interval TMV ECG 431ms 99439.8 P Preston TMV ECG73 deg 15148.9 QRS Preston TMV ECG 62deg 79446.10 T Wave Preston TMV ECG 2deg DATE: 06/15/2012 FINDING(S):SINUS RHYTHM <Electronically signed by Young Adame> 06/15/2012 1320 06/16/122027 us Cholo Dotson MD ECG ORDERABLES Final Resu lt [facility] documented in this encounter Visit Diagnoses Not on filedocumented in this encounter Care Teams Proced Tech Relationship Specialty Start Date End Date None, Physician PCP - General 05/24/12 01/23/14 documented as of this encounter
--- OUTSIDE RECORDS SUMMARY | 2024-10-10 22:53 | XMS_ITS | Encounter Summary ---
Author Organization [facility] Address [address] [place] [address] Care Team Providers Care Small Brake Form Operator Name Role Phone Keanu Brooks Ar Primary Care Provider [phone] Encounter Details Date Type Department Care Team (Late st Contact Info) Description 01/22/2021 2:00 PM EDT Telemedicine [facility] [address] [facility] [address] [place] [address] Marii Cuellar APRN [address] [place] [address] [address] [place] [address] Obstructive sleep apnea syndrome (Primary Dx) Social History Tobacco Use Types Packs/Day Years Used Date Smoking Tobacco: Never Smokeless Tobacco: Never Alcohol Use Standard Drinks/Week Comments Yes 0 (1 standard drink = 0.6 oz pur e alcohol) OCCASIONAL Sex and Gender Information Value Date Recorded Sex Assigned at Not on file Legal Sex Male 4:52 PM EST Gender Identity Not on file Sexual Orientation Not on file COVID-19 Exposure Response Date Recorded In the last month, have you been in contact with someone who was confirmed or suspected to have Coronavirus / COVID-19? No / Unsure 01/19/2021 7:48 AM EDT documented as of this encounter Functional Status * Patient's Vision Adequate to Safely Complete Daily Activities Answer Date of Assessment Author Yes 02/16/2013 1:00 PM EDT Delmer Ceja RN documented as of this encounter Patient Instructions * Patient Instructions* Marii Cuellar APRN - 01/22/2021 2:12 PM EDT - Notify all healthcare providers that you have Sleep Apnea. - Take your machine to the hospital for surgeries, admissions, etc. - Avoid Sedatives, they will make TERE worse. - Do not drive if drowsy. - Weight control can improve TERE. - Get new supplies, as necessary, to keep filters clean and mask with a good fit. documented in this encounter Progress Notes * Marii Cuellar APRN - 01/22/2021 2:09 PM EDT [facility] Clinic Note Patient Identification: Name: Yovanny Steve Age: 60 yr/o Sex: male : 1960 Chief Complaint: Patient presents today for video visit from home. Patient was evaluated today using audio-visual telemedicine technology. History of Present Illness: Mr. Steve presents in follow up of Obstructive Sleep Apnea. Overall, his symptoms of TERE are improved with PAP treatment at 12.0 cm of H2O pressure. Denies pressure intolerance, no mask leak. 12/21/20-01/19/21 I reviewed the compliance download and he is not doing well, wearing PAP greater than four hours nightly 30.0% of the time with an average nightly usage of 6 hours 31 minutes. The average Apnea Hypopnea Index is down to 0.8 with PAP therapy. fell off the wagon and starting using it about 1 week ago ESS: 5 DME: [employer] Review of Symptoms: Review of Systems Constitutional: Negative for chills, fever, malaise/fatigue and weight loss. Respiratory: Negative for cough and shortness of breath. Cardiovascular: Negative for chest pain, palpitations and leg swelling. Allergies as of 01/22/2021 Review status set to Review Complete by You at 2:12 PM No Known Allergies Current Outpatient Medications: ??? albuterol (PROVENTIL HFA;VENTOLIN HFA) 108 (90 BASE) MCG/ACT inhaler, Inhale 2 puffs into the lungs as needed., Disp: , Rfl: ??? albuterol HFA 108 (90 Base) MCG/ACT inhaler, Inhale 2 puffs into the lungs., Disp: , Rfl: ??? allopurinol (ZYLOPRIM) 100 MG tablet, TAKE 1 TABLET BY MOUTH EVERY DAY, Disp: , Rfl: 0 ??? allopurinol (ZYLOPRIM) 300 MG tablet, Take 300 mg by mouth., Disp: , Rfl: ??? DULERA 200-5 MCG/ACT AERO inhaler, 2 PUFFS EVERY 12 HOURS RINSE MOUTH AFTER EACH USE, Disp: , Rfl: 3 ??? fexofenadine (GABBIE) 180 MG tablet, TK 1 T PO QD PRN, Disp: , Rfl: ??? fluticasone (FLONASE) 50 MCG/ACT nasal spray, Instill 2 sprays into nose., Disp: , Rfl: ??? fluticasone (FLONASE) 50 [...] mometasone furo-formoterol (DULERA) 200-5 MCG/ACT AERO inhaler, INHALE 2 PUFFS TWICE DAILY. RINSE MOUTH AFTER USE., Disp: , Rfl: ??? Mometasone Furo-Formoterol Fum (DULERA IN), Inhale into the lungs, Disp: , Rfl: ??? montelukast (SINGULAIR) 10 MG tablet, TAKE 1 TABLET BY MOUTH EVERYDAY AT BEDTIME, Disp: , Rfl: 3 ??? oseltamivir (TAMIFLU) 75 MG capsule, Take 1 capsule by mouth 2 (two) times daily for 5 days, Disp: 10 capsule, Rfl: 0 ??? oseltamivir (TAMIFLU) 75 MG capsule, Take 1 capsule (75 mg total) by mouth 2 (two) times daily., Disp: 10 capsule, Rfl: 0 ??? SPIRIVA RESPIMAT AERS, USE 2 INHALATIONS [...] ??? tiotropium bromide monohydrate (SPIRIVA RESPIMAT) AERS, INHALE 2 PUFFS ONCE DAILY, Disp: , Rfl: ??? traZODone (DESYREL) 100 MG tablet, Take 100 mg by mouth., Disp: , Rfl: ??? traZODone (DESYREL) 100 MG tablet, Take 1 tablet by mouth nightly, Disp: 30 tablet, Rfl: 3 ??? traZODone (DESYREL) 100 MG tablet, Take 0.5 tablets (50 mg total) by mouth nightly as needed for Sleep., Disp: 30 tablet, Rfl: 0 Objective: Physical Exam: NO TOUCH E CARE PHYSICAL EXAM, BY OBSERVATION ONLY Exam: GEN: No significant distress, pleasant, appears stated age HEENT: No visible nasal discharge, congestion, trachea midline, normocephalic, no conjunctival injection LUNGS: Breathing unlabored, comfortable on room air by observation SKIN: appropriate for ethnicity, no rashes/lesions on face NEURO: alert and oriented x 3 PSYCH: normal speech and content, mood normal, affect normal Assessment & Plan: Diagnoses and all orders for this visit: Obstructive sleep apnea syndrome We saw Yovanny Steve for follow up of their sleep apnea. Based on review of their use they are not compliant with PAP therapy. We discussed the health risks associated with untreated sleep apnea including heart attack, stroke, , hypertension, diabetes, cancer, and the potential for motor vehicle accidents. We asked that the patient not drive or engage in potentially hazardous activities whilefeeling fatigued or sleepy. We encouraged them to increase their PAP use and discussed ways to achieve this. We will continue to encourage follow up to verify compliance and response to therapy. Return in about 8 weeks (around 03/19/2021) for compliance f/u. He will return sooner if problems arise. Marii Cuellar APRN 01/22/2021 documented in this encounter Plan of Treatment Upcoming Encounters Date Type Department Care Team (Late st Contact Info) Description 01/24/2025 1:40 PM EDT Office Visit [facility] - [address] [address] Damien Cárdenas APRN [address] [place] [address] documented as of this encounter Visit Diagnoses Diagnosis Obstructive sleep apnea syndrome- Primary Obstructive sleep apnea (adult) (pediatric) documented in this encounter Care Teams Small Brake Form Operator Relationship Specialty Start Date End Date Keanu Brooks DO PCP - General Family Medicine 01/14/20 documented as of this encounter
--- OUTSIDE RECORDS SUMMARY | 2024-10-10 22:53 | XMS_ITS | Encounter Summary ---
Author Organization [facility] Address [address] [place] [address] Care Team Providers Care Intake Clerk Name Role Phone Keanu Brooks Ar Primary Care Provider [phone] Encounter Details Date Type Department Care Team (Late st Contact Info) Description 04/16/2021 1:30 PM EDT Telemedicine [facility] [address] [facility] [address] [place] [address] Marii Cuellar APRN [address] [facility] [address] [place] [address] Obstructive sleep apnea syndrome (Primary Dx) Social [...] have Coronavirus / COVID-19? No / Unsure 04/03/2021 10:48 AM EDT documented as of this encounter Functional Status * Patient's Vision Adequate to Safely Complete Daily Activities Answer Date of Assessment Author Yes 02/16/2013 1:00 PM EDT Delmer Ceja RN documented as of this encounter Patient Instructions * Patient Instructions* Marii Cuellar APRN - 04/16/2021 1:32 PM EDT - Notify all healthcare providers [...] Progress Notes * Marii Cuellar APRN - 04/16/2021 1:30 PM EDT [facility] Clinic Note Patient Identification: Name: [...] pressure. Denies pressure intolerance, no mask leak. 03/15/21-04/13/21 I reviewed the compliance download and he is doing well, wearing PAP greater than four hours nightly 60.0% of the time with an average nightly usage of 7 hours 8 minutes. The average Apnea Hypopnea Index is down to 0.7 with PAP therapy. PAP use increased since last visit. Been trying to wear it more. ESS: 3 DME: [employer] Didn't take it on vacation Review of Symptoms: Review of Systems Constitutional: Negative for chills, fever, malaise/fatigue and weight loss. Respiratory: Negative for cough and shortness of breath. Cardiovascular: Negative for chest pain, palpitations and leg swelling. Gastrointestinal: Negative for abdominal pain and heartburn. Musculoskeletal: Negative for joint pain and myalgias. Allergies as of 04/16/2021 Review status set to Review Complete by You at 1:32 PM No Known Allergies Current Outpatient Medications: [...] for this visit: Obstructive sleep apnea syndrome - CPAP DME Rx We saw Yovanny Mary Ellen Steve today in follow for their sleep apnea. We had the opportunity to review their compliance download and they are complaint with therapy AND IS BENEFITING FROM PAP USE. Patient was advised to continue PAP as prescribed. Sleep hygiene techniques and driving precautions were reviewed. We discussed getting a new mask as often as their insurance company will allow as well as making sure any surgical staff is aware of the diagnosis prior to the procedure. We also discussed health risks associated with untreated sleep apnea such as cardiovascular consequences and the potential for motor vehicle accidents. We plan to continue to follow to assess ongoing compliance and response to therapy. Return in about 1 year (around 04/16/2022) for One year f/u with me. He will return sooner if problems arise. Marii Cuellar APRN 04/16/2021 documented in this encounter Plan of Treatment Upcoming Encounters Date Type Department Care Team (Late st Contact Info) Description 01/24/2025 1:40 PM EDT Office Visit [facility] - [address] [address] Damien Cárdenas APRN [address] [place], [place] [id number] documented as of this encounter Visit Diagnoses Diagnosis Obstructive sleep apnea syndrome- Primary Obstructive sleep apnea (adult) (pediatric) documented in this encounter Care Teams Intake Clerk Relationship Specialty Start Date End Date Keanu Brooks DO PCP - General Family Medicine 01/14/20 documented as of this encounter
--- OUTSIDE RECORDS SUMMARY | 2024-10-10 22:53 | XMS_ITS | Encounter Summary ---
Author Organization [facility] Address [address] [place] [address] Care Team Providers Care Primer Inserting Machine Adjuster Name Role Phone System, Provider Not In Primary Care Provider Un available Reason for Visit * Reason Comments Shortness of Breath BODY ACHES, COUGH X YESTERDAY Encounter Details Date Type Department Care Team (Late st Contact Info) Description 07/03/2016 9:45 AM EDT Office Visit [facility] - [address] [place] [id number] Laurita Hernandez MD Body aches (Primary Dx); COPD with acute exacerbation Social History Tobacco Use Types Packs/Day Years [...] Sign Reading Time Taken Comments Blood Pressure 110/70 07/03/2016 9:35 AM EDT Pulse 111 07/03/2016 9:35 AM EDT Temperature 37 ??C (98.6 ??F) 07/03/2016 9:35 AM EDT Respiratory Rate 18 07/03/2016 9:35 AM EDT Oxygen Saturation 94% 07/03/2016 9:35 AM EDT Inhaled Oxygen Concentration - - Weight 95.3 kg (210 lb) 07/03/2016 9:35 AM EDT Height - - Body Mass Index 31.01 11/20/2014 6:52 PM EST documented in this encounter Functional Status * Patient's Vision Adequate to Safely Complete Daily Activities Answer Date of Assessment Author Yes 02/16/2013 1:00 PM EDT Delmer Ceja RN documented as of this encounter Patient Instructions * Patient Instructions* Laurita Hernandez MD - 07/03/2016 10:09 AM EDT Images from the original note were not included. COPD (Chronic Obstructive Pulmonary Disease) WHAT YOU NEED TO KNOW: Chronic obstructive pulmonary disease (COPD) is a lung disease that makes it hard for you to breathe. It is usually a result of lung damage caused by years of irritation and inflammation in your lungs. COPD is a serious condition that gets worse over time. There is no cure, but there are things youcan do to feel better and prevent exacerbations. A COPD exacerbation is when your symptoms suddenlyget worse. It is important to prevent exacerbations because they cause more lung damage. DISCHARGE INSTRUCTIONS: Manage COPD and help prevent exacerbations: ?? Do not smoke and avoid others who smoke. If you smoke, it is never too late to quit. You are likely to live longer and breathe easier if you quit smoking. You may also have fewer COPD exacerbations. Ask for information about medicines and support programs that can help you quit. ?? Be aware of and avoid things that make your symptoms worse. Cold weather and sudden temperature changes can trigger an exacerbation. Fumes from cars and chemicals, air pollution, and perfume can also increase your symptoms. ?? Exercise daily. Exercising for at least 20 minutes per day can help increase your energy and decrease shortness of breath. Walking or riding a bike are good ways to exercise. Ask about the best exercise plan for you. ?? Prevent infections that can be dangerous when you have COPD. Get a flu vaccine every year as soon as it becomes available. Ask if you should also get vaccines to prevent pneumonia, whooping cough,tetanus, and diphtheria. Avoid people who are sick, and wash your hands often. Use pursed-lip breathing any time you feel short of breath: Take a deep breath in through your nose. Slowly breathe out through your mouth with your lips pursed for twice as long as you inhaled. You can also practice this breathing pattern while you bend, lift, climb stairs, or exercise. It slows down your breathing and helps move more air in and out of your lungs. Medicines: ?? Medicines to open your airways, decrease swelling and inflammation in your lungs, or treat an infection may be given. You may need 2 or more medicines. A short-acting medicine relieves symptoms quickly. Long-acting medicines will control or prevent symptoms. Ask for more information about the medicines you are given and how to use them safely. ?? Take your medicine as directed. Contact your healthcare provider if you think your medicine is not helping or if you have side effects. Tell him if you are allergic to any medicine. Keep a list ofthe medicines, vitamins, and herbs you take. Include the amounts, and when and why you take them. Bring the list or the pill bottles to follow-up visits. Carry your medicine list with you in case of a n emergency. Follow up with your healthcare provider as directed: You may need more tests. Your healthcare provider may refer you to a pulmonary (lung) specialist. Write down your questions so you remember to askthem during your visits. Pulmonary rehabilitation: Your healthcare provider may recommend a program to help you manage your symptoms and improve your quality of life. It may include nutritional counseling and exercise, such as walking, to strengthen your lungs. Make decisions about your choices for future treatment: Ask for information about advanced medical directives and living jewell. These documents help you decide and write down your choices for treatment and end-of-life care. It is best to complete them when you feel well and can think clearly about your wishes. The information can then be kept for future use if you are in the hospital or become very ill. Return to the emergency department if: ?? You are confused, dizzy, or feel faint. ?? Your arm or leg feels warm, tender, and painful. It may look swollen and red. ?? You feel lightheaded, short of breath, and have chest pain. ?? You cough up blood. Contact your healthcare provider if: ?? You have more shortness of breath than usual. ?? You need more medicine than usual to control your symptoms. ?? You are coughing or wheezing more than usual. ?? You are coughing up more mucus, or it is a different color or has a different odor. ?? You gain more than 3 pounds in a week. ?? You have a fever, a runny or stuffy nose, and a sore throat, or other cold or flu symptoms. ?? Your skin, lips, or nails start to turn blue. ?? You have swelling in your legs or ankles. ?? You are very tired or weak for more than a day. ?? You notice changes in your mood, or changes in your ability to think or concentrate. ?? You have questions or concerns about your condition or care. ?? 2015 [employer]. Information is for End User's use only and may not be sold, redistributed or otherwise used for commercial purposes. All illustrations and images included in CareNotes?? are the copyrighted property of [employer] or [employer]. The above information is an teachers' aide only. It is not intended as medical advice for individual conditions or treatments. Talk to your doctor, nurse or pharmacist before following any medical regimen to see if it is safe and effective for you. documented in this encounter Progress Notes * Laurita Hernandez MD - 07/03/2016 10:13 AM EDT Patient Identification: Name: Yovanny Steve Age: 55 yr/o Gender: male : 1960 PCP: System, Provider Not In Chief Complaint: Yovanny Steve is presenting today for Shortness of Breath (BODY ACHES, COUGH X YESTERDAY) . History of Present Illness: Cough This is a new problem. The current episode started more than 1 week ago. The problem occurs every few minutes. The problem has been gradually worsening. The cough is productive of sputum. There has been no fever. Associated symptoms include ear congestion, ear pain, rhinorrhea, sore throat, wheezing and pleuritic pain. Pertinent negatives include no chills, no sweats, no headaches, no shortness of breath and no eye redness. The treatment provided mild relief. His past medical history is significant for bronchitis and COPD. He has received no recent medical care. History, Medications, Allergies, and Review of Symptoms: Past Medical History: Past Medical History Diagnosis Date ??? Asthma ??? Cervical stenosis of spine ??? CPAP (continuous positive airway pressure) dependence ??? Degenerative disc disease, cervical ??? ED (erectile dysfunction) ??? Hypertension ??? Sleep apnea Past Surgical History: Past Surgical History Procedure Laterality Date ??? Shoulder surgery 2010 ??? Knee surgery 2011 FOR TORN LIGAMENT ??? Back surgery 2006 ??? Anterior cervical discectomy w/ fusion C6 - C8 ??? Lumbar disectomy L5 - S1 Current Medications: Outpatient Prescriptions as of 07/03/2016 Medication Sig Dispense Refill ??? albuterol (PROVENTIL HFA;VENTOLIN HFA) 108 (90 BASE) MCG/ACT inhaler Inhale 2 puffs into the lungs as needed. ??? lisinopril (PRINIVIL,ZESTRIL) 10 MG tablet Take 10 mg by mouth daily ??? lisinopril-hydrochlorothiazide (PRINZIDE,ZESTORETIC) 20-25 MG per tablet Take 1 tablet by mouthdaily. ??? Mometasone Furo-Formoterol Fum (DULERA IN) Inhale into the lungs ??? oseltamivir (TAMIFLU) 75 MG capsule Take 1 capsule by mouth 2 (two) times daily for 5 days 10 capsule 0 ??? oseltamivir (TAMIFLU) 75 MG capsule Take 1 capsule (75 mg total) by mouth 2 (two) times daily. 10 capsule 0 ??? tadalafil (CIALIS) 20 MG tablet Take 1 tablet (20 mg total) by mouth daily as needed for Erectile Dysfunction. 10 tablet 0 ??? traZODone (DESYREL) 100 MG tablet Take 1 tablet by mouth nightly 30 tablet 3 ??? traZODone (DESYREL) 100 MG tablet Take 0.5 tablets (50 mg total) by mouth nightly as needed forSleep. 30 tablet 0 Allergies: Allergies as of 07/03/2016 Review Complete On: 07/03/2016 By: Minda Jordan No Known Allergies Family Medical History: Family History Problem Relation Age of Onset ??? Other Mother pneumonia ??? Cancer, Other or Unknown Type Father prostate Social History: Social History Substance Use Topics ??? Smoking status: Never Smoker ??? Smokeless tobacco: Never Used ??? Alcohol use Yes Comment: OCCASIONAL Review of Symptoms: Review of Systems Constitutional: Positive for malaise/fatigue. Negative for chills. HENT: Positive for congestion, ear pain, rhinorrhea and sore throat. Eyes: Negative for discharge and redness. Respiratory: Positive for cough and wheezing. Negative for shortness of breath. Cardiovascular: Negative. Gastrointestinal: Positive for nausea. Negative for abdominal pain and vomiting. Genitourinary: Negative. Neurological: Negative for headaches. Physical Exam: BP 110/70 Pulse 111 Temp 98.6 ??F (37 ??C) (Oral) Resp 18 Wt 210 lb (95.3 kg) SpO2 94% BMI 31.01 kg/m2 Physical Exam Constitutional: He is oriented to person, place, and time. He appears well- developed and well-nourished. No distress. Neck: Normal range of motion. Neck supple. Cardiovascular: Normal rate, regular rhythm and normal heart sounds. No murmur heard. Pulmonary/Chest: Effort normal. No respiratory distress. He has no decreased breath sounds. He has wheezes in the right lower field and the left middle field. He has rhonchi in the right lower field and the left middle field. He has no rales. Lymphadenopathy: He has cervical adenopathy. Neurological: He is alert and oriented to person, place, and time. Coordination normal. Skin: Skin is warm and dry. He is not diaphoretic. No erythema. Psychiatric: He has a normal mood and affect. His behavior is normal. Nursing note and vitals reviewed. Assessment/Plan: Diagnoses and orders/medications from this encounter 1. Body aches POCT Influenza A/B 2. COPD with acute exacerbation (HCC) methylPREDNISolone sodium succinate (Solu- MEDROL) injection 80 mg albuterol-ipratropium (DUO-NEB) 0.5-2.5 mg/3 mL nebulizer 3 mL PredniSONE 10 MG (21) TAB TPK promethazine-dextromethorphan (PROMETHAZINE-DM) 6.25-15 MG/5ML syrup doxycycline (MONODOX) 100 MG capsule Encounter Medications Signed Prescriptions Disp Refills ??? PredniSONE 10 MG (21) TAB TPK 21 each 0 Sig: Take 1 packet by mouth as directed for 6 days As directed for 6 days. 21 tablets ??? promethazine-dextromethorphan (PROMETHAZINE-DM) 6.25-15 MG/5ML syrup 105 mL 0 Sig: Take 5 mLs by mouth 3 (three) times daily as needed for Cough for up to 7 days DO NOT TAKE MEDICATION WHEN DRIVING OR AT WORK ??? doxycycline (MONODOX) 100 MG capsule 20 capsule 0 Sig: Take 1 capsule by mouth 2 (two) times daily for 10 days Results this visit (if any) Results for orders placed or performed in visit on 07/03/16 POCT Influenza A/B Result Value Ref Range Rapid Influenza A Ag Negative Negative Rapid Influenza B Ag Negative Negative Internal QC Yes Negative Lot Number [id number] Follow-up (if any) Return for follow up with PCP in 7 days. Medical Decision Making documented in this encounter Plan of Treatment Upcoming Encounters Date Type Department Care Team (Late st Contact Info) Description 01/24/2025 1:40 PM EDT Office Visit [facility] - [address] [phone] Damien Cárdenas, INSURANCE REPRESENTATIVE [address] [place] [address] documented as of this encounter Procedures Procedure Name Priority Date/Time Associated Diagnosis Comments POCT INFLUENZA A/B Routine 07/03/2016 9: 59 AM EDT Body aches documented in this encounter Results * POCT Influenza A/B (07/03/2016 9:59 AM EDT) Rapid Influenza A Ag Negative Negative Rapid Influenza B Ag Negative Negative Internal QC Yes Negative Lot Number [id number] 07/03/2016 9:59 AM EDT Laurita Hernandez MD POINT OF CARE TEST ORDERABLE S Final Result documented in this encounter Visit Diagnoses Diagnosis Body aches- Primary Generalized pain COPD with acute exacerbation documented in this encounter Administered Medications Inactive Administered Medications - up to 3 most recent administrations Medication Order MAR Action Action Date Dose Rate Site albuterol-ipratropium (DUO-NEB) 0.5-2.5 mg/3 mL nebulizer 3 mL 3 mL, Nebulization, Once, On 07/03/16 at 0945, For 1 dose, 3 mL, RoutineIndications:COPD with acute exacerbation Given 07/03/2016 9:52 AM EDT 3 mLs methylPREDNISolone sodium succinate (Solu-MEDROL) injection 80 mg 80 mg, Intramuscular, Once, On 07/03/16 at 0945, For 1 dose, 2 mL, RoutineIndications:COPD with acute exacerbation Given 07/03/2016 9:51 AM EDT 80 mg Left Ventrogluteal documented in this encounter Care Teams Primer Inserting Machine Adjuster Relationship Specialty Start Date End Date System, Provider Not In PCP - General 11/17/14 11/13/17 documented as of this encounter
--- OUTSIDE RECORDS SUMMARY | 2024-10-10 22:53 | XMS_ITS | Encounter Summary ---
Author Organization [facility] [place] [address] Care Team Providers Care [employer] Name Role Phone None, Physician Primary Care Provider Unavailabl e Reason for Referral * (Routine) - Closed Specialty Diagnoses / Procedures Referred By Contac t Referred To Contact Diagnoses Stenosis of cervical spine Procedures Follow [place] [address] [facility] [address] [place] [id number] Phone: tel: fax: Referral ID Status Reason Start Date Expiration Date Visits Re quested Visits Authorized [id number] Closed 02/18/2013 03/21/2014 1 1 * (Routine) - Closed Specialty Diagnoses / Procedures Referred By Contac t Referred To Contact Diagnoses Stenosis of cervical spine Procedures [place] [address] [facility] [address] [place] [address] Phone: tel: fax: Referral ID Status Reason Start Date Expiration Date Visits Re quested Visits Authorized [id number] Closed 02/18/2013 03/21/2014 1 1 * (Routine) - Closed Specialty Diagnoses / Procedures Referred By Contac t Referred To Contact Diagnoses Stenosis of cervical spine Procedures Rest quietly [place] [address] [facility] [address] [place] [address] Phone: tel: fax: Referral ID Status Reason Start Date Expiration Date Visits Re quested Visits Authorized [id number] Closed 02/18/2013 03/21/2014 1 1 * (Routine) - Closed Specialty Diagnoses / Procedures Referred By Contac t Referred To Contact Diagnoses Stenosis of cervical spine Procedures Call doctor for: potential [place] [address] [place] [phone] Phone: tel: fax: Referral ID Status Reason Start Date Expiration Date Visits Re quested Visits Authorized [id number] Closed 02/18/2013 03/21/2014 1 1 * (Routine) - Closed Specialty Diagnoses / Procedures Referred By Contac t Referred To Contact Diagnoses Stenosis of cervical spine Procedures Call doctor for: difficulty breathing [place] [address] [place] [address] Phone: tel: fax: Referral ID Status Reason Start Date Expiration Date Visits Re quested Visits Authorized [id number] Closed 02/18/2013 03/21/2014 1 1 * (Routine) - Closed Specialty Diagnoses / Procedures Referred By Contac t Referred To Contact Procedures Inpatient consult [place] [address] [place] [address] Phone: tel: fax: Referral ID Status Reason Start Date Expiration Date Visits Re quested Visits Authorized [id number] Closed 02/16/2013 03/19/2014 1 1 * Physical Therapy (Routine) - Closed Specialty Diagnoses / Procedures Referred By Contac t Referred To Contact Procedures PT eval [place] treat Shady [place] [address] [place] [address] Phone: tel: fax: Referral ID Status Reason Start Date Expiration Date Visits Re quested Visits Authorized [id number] Closed 02/16/2013 03/19/2014 1 1 * (Routine) - Closed Specialty Diagnoses / Procedures Referred By Contac t Referred To Contact Procedures Admit to Inpatient post surgery/[place] [address] [facility] [address] [place] [address] Phone: tel: fax: Referral ID Status Reason Start Date Expiration Date Visits Re quested Visits Authorized [id number] Closed 02/16/2013 03/19/2014 1 1 * X-Ray (Routine) - Closed Specialty Diagnoses / Procedures Referred By Contac t Referred To Contact Radiology Procedures FL C-ARM UP TO 1 [place] [address] [facility] [address] [place] [address] Phone: tel: fax: Referral ID Status Reason Start Date Expiration Date Visits Re quested Visits Authorized [id number] Closed 02/16/2013 03/19/2014 1 1 Reason for Visit * Auth/Cert - Closed Specialty Diagnoses / Procedures Referred By Contac t Referred To Contact Diagnoses CERIVCAL STENOSIS Procedures ANTERIOR CERVICAL FUSION W/INST Referral ID Status Reason Start Date Expiration Date Visits Re quested Visits Authorized [id number] Closed 1 1 Encounter Details Date Type Department Care Team (Latest Contact Info) Description 02/16/2013 6:01 AM EDT - 02/18/2013 11:34 AM EDT Hospital Encounter [facility]Surg [address] [place] [id number] [place] [address] [facility] [address] [place] [address] Stenosis of cervical spine (Primary Dx) Discharge Disposition: Home or Self [...] Sign Reading Time Taken Comments Blood Pressure 136/77 02/18/2013 7:12 AM EDT Pulse 103 02/18/2013 7:12 AM EDT Temperature 37.8 ??C (100.1 ??F) 02/18/2013 7:12 AM E DT Respiratory Rate 20 02/18/2013 7:12 AM EDT Oxygen Saturation 98% 02/18/2013 7:12 AM EDT Inhaled Oxygen Concentration - - Weight 87.8 kg (193 lb 9.6 oz) 02/16/2013 7:00 A M EDT Height 175.3 cm (5' 9 ) 02/16/2013 7:00 AM EDT Body Mass Index 28.59 02/16/2013 7:00 AM EDT documented in this encounter Functional Status * Patient's Vision Adequate to Safely Complete Daily Activities Answer Date of Assessment Author Yes 02/16/2013 1:00 PM EDT Delmer Ceja RN documented as of this encounter Discharge Instructions * Attachments The following attachments cannot be sent through Care Everywhere. * CARENOTES SYSTEM - CERVICAL SPINAL STENOSIS (DISCHARGE CARE) (BENINESE) documented in this encounter Medications at Time of Discharge albuterol (PROVENTIL HFA;VENTOLIN HFA) 108 (90 BASE) MCG/ACT inhaler Inhale 2 puffs into the lungs every 6 (six) hours as needed for Wheezing . lisinopril-hydro chlorothiazide (PRINZIDE,ZESTOR ETIC) 20-25 MG per tablet Take 1 tablet by mouth daily. HYDROcodone-acet aminophen (NORCO 10-325) 10-325 MG per tablet Take 1 tablet by mouth every 6 (six) hours as needed. 12/04/2015 oseltamivir (TAMIFLU) 75 MG capsuleIndicatio ns:Influenza Take 1 capsule (75 mg total) by mouth 2 (two) times daily. 10 capsule 0 09/22/2012 03/30/2022 traZODone (DESYREL) 100 MG tablet Take 100 mg by mouth as needed. 08/04/2013 documented as of this encounter Progress Notes * Shady Camargo MD - 02/18/2013 10:48 AM EDT Doing much better Left arm symptoms only occur after standing up too long Pain much better controlled VSS Tmax 100.1 MELIA = 20 cc MELIA removed Incision clean and dry Bandage changed D/C summary #[id number] Rx: Dilaudid 2mg q12 #30 * Alba Brooks RN - 02/17/2013 7:14 PM EDT Spoke to patient at bedside. Pt will be going home with significant other to her 1st floor apartment. Pt is normally independent with ADL's, uses no DME, no Home Health. Per PT evaluation, home independently. Informed role as healthcare receptionist and would follow t/o hospital stay for discharge needs. No needs identified at this time. CM to follow. 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 PT TO PACU PER RN AND CHAYO PRICE. REPORT OF PT IN NO ACUTE DISTRESS TO BELINDA CHANDRA. * Elisa Rincon RN - 02/16/2013 8:49 AM EDT PT FAMILY UPDATED RE: PROGRESSION OF SURGERY VIA PT LIAISON AT 0810 PT FAMILY UPDATED RE: PROGRESSION OF SURGERY VIA PT LIAISON AT 0930 * Elisa Rincon RN - 02/16/2013 8:48 AM EDT PRE-OP ASSESSMENT: PT AO X 4 IN PRE-OP, REPORT RCVD FROM BELINDA SNYDER; DR. 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 CAMARGO IN PRE-OP, INFORMED CONSENT OBTAINED AND SIGNED ON CHART, NO KNOWN ALLERGIES CONFIRMED, PT C/O PAIN FROM LEFT SHOULDER DOWN THROUGH LEFT ARM WITH TINGLING IN LEFT HAND - PAIN 04/28, PT TRANSFERRED SELF TO OR TABLE WITHOUT DIFFICULTY, ALL MEDICATIONS DELIVERED TO FIELD PER STERILE TECHNIQUE - PER RN. documented in this encounter Miscellaneous Notes * Physical Therapy - Camille Ulloa, PT - 02/17/2013 9:42 AM EDT [facility] Patient Identification: Margarita Steve is a 52 yr/o male. : 1960 Admit Date: 02/16/2013 Admitting Diagnosis: CERIVCAL STENOSIS Attending Provider: Shady Camargo MD Note Type: Evaluation PT Evaluation - 02/17/13 0915 GENERAL Current Hospitalization Summary S/P ACDF C4-7 02/16/13 Family/Caregiver Present None RESTRICTIONS/PRECAUTIONS General Restrictions/Precautions Falls risk Required Braces or Orthoses Spinal brace Spinal Brace Soft c-collar Spinal Precautions CERVICAL Spine fusion precautions;No lifting > 10 lbs, BENDING, OR CERVICAL ROTATION HOME LIVING Type of Home -- SSH NO STEPS PRIOR FUNCTION Level of [place] Independent with ADLs;Independent with bed mobility/transfers;Independent with ambulation;Independent with community mobility Lives With Significant other Driving Yes Vocation Retired PAIN ASSESSMENT Pain Score 5 Pain Location Arm Pain Orientation Left OBSERVATION Appearance -- RESTING IN BED IN SOFT C-COLLAR Medical Interventions Drains;Oxygen Behavior Alert;Cooperative;Pleasant mood COGNITION Orientation Level Oriented X 4 ROM ASSESSMENT ROM Assessments RLE;LLE WFL STRENGTH Strength RLE;LLE GROSSLY >3/5 SENSATION Sensation LUE PER Pt, C/O SOME NUMBNESS ON DORSUM, 4-5TH DIGITS OF HAND BED MOBILITY/TRANSFERS Sidelie to Sit Supervision/Standby assist;With cues Sit to Stand Supervision/Standby assist Stand to Sit Supervision/Standby assist Sit to Sidelie Supervision/Standby assist;With cues AMBULATION Ambulation Assistance Supervision/Standby assist Quality of Gait WFL Distance (ft) 200 feet Ambulation Safety Good BALANCE Static Sitting Good Dynamic Sitting Good Static Standing Good Dynamic Standing Good LOWER EXTREMITY EXERCISES Lower Extremity Location Right;Left Position Standing Type Active Lower Extremity Exercise Spine exercises Reps 10 Reps POSITIONING AT END OF SESSION Positioning at End of Session In bedside chair Safety Measures Call light within reach;Nurse/aide notified OTHER OBJECTIVE INFORMATION Other Objective Information Pt EDUCATED ON ROLE AND FREQUENCY OF PT, SPINE PRECAUTIONS, D/C PLANS ASSESSMENT Problem List/Treatment Diagnosis Impaired sensation;Orthopedic restrictions Problem List Comments LUE W/RADIATING PAIN, C/O NUMBESS IN HAND AND 4-5 DIGITS Assessment Tolerated well, no complications Assessment Comment Pt IS SAFE W/TRANSFERS AND AMBULATION ON LEVEL SURFACES; NO STEPS AT HOME; NO DME NEEDS; READY FOR D/C HOME Prognosis for Therapy Good Treatment Indicated For This Setting No Reason No Skilled PT Needed Safe to return home Patient/Caregiver Agrees With Goals/Plan Yes Discharge Recommendations Home independently/No skilled therapy needed Other Recommendations MAY NEED OP PT AFTER F/U W/MD PLAN Comment D/C Pt HOME Camille Ulloa, PT * Nurse - Zulay Ceja RN - 02/16/2013 3:53 PM EDT PT RATED PAIN LEVEL 7/10; STILL HAS 2 HOURS BEFORE ABLE TO RECEIVE ANY MORE PAIN MEDICATION; DR CAMARGO CALLED; ORDERS RECEIVED * Nurse - Flori Chris RN - 02/16/2013 12:55 PM EDT Pt transported to room on 2L nc and to be on cont pulse ox on floor overnight. Pt alert. No change in neck drsg. Temp 97.6 upon d/c from pacu. Hr 84 sats 100% 2L nc bp 117/76 resp 16. Pt assisted to bed, ambulated without difficulty * Nurse - Flori Chris RN - 02/16/2013 11:52 AM EDT REPORT FROM BELINDA YANEZ. PT AWAKE, ALERT. PAIN 6 , WILL MEDICATE PER MD ORDER. HR 102. PT WAITING ON ROOM ASSIGNMENT. PT MAEW. * Post Operative Progress Note - Shady Camargo MD - 02/16/2013 10:07 AM EDT Brief Operative Note Margarita Steve 52 yr/o 1960 male [id number] 02/16/2013 Surgeon(s) and Role: * Shady Camargo MD - Primary Pre-operative Diagnosis Code: 723.0; 723.4; 722.0 Pre-operative Diagnosis Free Text: CERIVCAL STENOSIS Post-operative Diagnosis: same Findings/Complications: Dictation [id number] Description of procedure: Procedure(s) and Anesthesia Type: * ANTERIOR CERVICAL FUSION W/INST - General ACDF C4-7 with Harms cage and [place] plate Specimens: none Estimated Blood Loss:500cc Shady Camargo 02/16/2013 * Operative Report - Shady Camargo MD - 02/16/2013 10:05 AM EDT OPERATIVE/PROCEDURE REPORT FACILITY: [facility] UNIT/AGE/GENDER: 2E IN 52Y M PATIENT NAME/: MARGARITA STEVE 1960 UNIT NUMBER: [id number] DATE OF OPERATION(S)/PROCEDURE(S): 02/16/2013 SURGEON(S): Shady Camargo Jr., M.D. CARPENTRY PROFESSIONAL(S): [employer] PREOPERATIVE DIAGNOSES: 1. Cervical stenosis, 723.0. 2. Upper extremity radiculopathy, 723.4. 3. Disc herniations at C4-5, C5-6 and C6-7, 722.0 x3. POSTOPERATIVE DIAGNOSES: Same. PROCEDURE(S) PERFORMED: 1. Partial corpectomy, C5, 34023. 2. Partial corpectomy, C6, 25734. 3. Arthrodesis, C4-5, 05569. 4. Arthrodesis, C6-7, 18696. 5. Placement of [place] plate, C4-7, 09489. 6. Placement of 40 millimeter Harms titanium surgical mesh vertebral body replacement device, 12134. 7. Autologous bone graft for arthrodesis, 96901. 8. Fluoroscopy greater than one hour, 95993-08. ESTIMATED BLOOD LOSS: 500 milliliters. COMPLICATION(S): None. INDICATION(S) FOR PROCEDURE(S): The patient is a 52-year-old black male who presents with progressive intractable neck and upper extremity pain. He had been followed in the clinic for quite some timebut felt is pain had been progressing and he could no longer deal with it. He thus elected for surgery. We discussed the options including partial corpectomy versus multiple allograft spacers. We agreed that the use of his own bone would increase his fusion rate and allow for a much better exposurefor decompression. After the consents were signed, the patient was brought to the Operating Room for the following procedure. DESCRIPTION OF PROCEDURE(S): The patient was brought to the Operating Room in the supine position. The anesthesia team sedated and intubated the patient without difficulty. Mathur catheter was established. He was then placed on an operative table with a 3 inch roll of sheets underneath his shoulderswith his head resting on an egg crate foam mattress. Arms were placed at the side with the elbows resting on egg crate mattress. SCDs were placed for DVT prophylaxis. The skin was then cleaned with ChloraPrep. A time out was performed identifying the patient. No known allergies. He received 2 gramsof Ancef. He had SCDs on for DVT prophylaxis and the procedure was an anterior cervical decompression and fusion from C4 to C7. Once this was confirmed with the Anesthesia and Nursing staff a sterilefield was draped out using 4 blue towels, a lap sheet and an Ioban. His major skin fold was used asthe starting incision and a 3 centimeter incision was made with a 10 blade knife. The skin edges were elevated with a Weitlaner retractor and the platysma was divided with the Bovie. Metzenbaum scissors with DeBakeys were used to find the interval between the medial strap muscles and the sternocleidomastoid. One branch of the anterior jugular was identified and several branches were freed up to allow for mobilization so that I would not avulse them during the retraction of the mid-line structures during the procedure. Blunt dissection was carried down to the anterior border of the cervical spine. Kitner retractors were used to remove the prevertebral fascia. The anterior osteophytes were easily palpated and the Leksell rongeur was used to remove one in the middle of the surgical field. A spinal needle was placed, however, the X-Ray Service had a malfunction with their C-arm and had to tr oubleshoot. This was unsuccessful and they had to retrieve a different C-arm to allow us pictures. In any case, while they were doing this I completed the discectomy at this level. A curet was then placed in the disc space and this was confirmed to be the C5-6 disc space. Bipolar electrocautery wasthen used to coagulate the medial border of the longus colli muscles on both sides. The anterior osteophytes were taken down with a Leksell rongeur and then 2 and 3 millimeter Kerrison punch rongeurs. Approximately 60-70% of the disc material was easily retrieved with the straight curette and the pituitary. The remainder had to be taken out with the high speed drill. This was at each level. Once the majority of the discectomy was completed the Leksell rongeur was used to create partial corpectomy troughs in C5 and C6. This bone was saved on the back table and morcellized for use for the fusion procedure later in the case. The posterior cortex was then taken down with 2 and 3 millimeter Kerrison punch rongeur as was the posterior longitudinal ligament. Dissection was carried out laterally at the disc space levels to remove the posterior osteophytes from uncovertebral joint to uncovertebral joint. Excellent decompression of the thecal sac was well noted. The wound was irrigated with 500 milliliters of normal saline.A 60 millimeter Harms titanium mesh vertebral body replacement device was cut to the appropriate size, filled with the autologous bone graft and then impacted into the trough between C4 and C7. It should be noted that the cartilaginous endplates were taken down with the high speed drill prior to the placement of the vertebral body replacement device. Once the cage was in place an [place] plate approximately 48 millimeters was affixed to the bodies of C4 and C7 using four 16 millimeter screws. Final AP and lateral image intensification pictures demonstrated excellent position of the cage, plate and screws. The screws were then fully engaged into the locking mechanism. Hemostasis was well visualized in the wound. A 7 Flat Guido-Sandoval was brought out by a separate stab wound incision. The platysma was re-approximated with 3-0 Monocryl as were the skin edges. Steri-Strips and a sterile bandage were applied. The patient was then extubated. The Mathur catheter was removed and he was transported to the Recovery Room. SHADY CAMARGO JR., M.D. /[facility] Job I.D. [id number] COPY TO: PRELIMINARY - SIGNED COPY IS FINAL * Electro - None, Physician - 02/16/2013 12:00 AM EDT * Miscellaneous - None, Physician - 02/16/2013 12:00 AM EDT * Miscellaneous - None, Physician - 02/16/2013 12:00 AM EDT * Miscellaneous - None, Physician - 02/16/2013 12:00 AM EDT documented in this encounter Plan of Treatment Upcoming Encounters Date Type Department Care Team (Late st Contact Info) Description 01/24/2025 1:40 PM EDT Office Visit [facility] - [address] [address] Damien Cárdenas, RN MOBILE [address] [place] [address] documented as of this encounter Procedures Procedure Name Priority Date/Time Associated Diagnosis Comments FL C-ARM UP TO 1 HOUR Routine 02/16/2013 10:00 AM EDT GLUCOSE-GLUCOMETER Routine 02/16/2013 7: 27 AM EDT ANTERIOR CERVICAL FUSION WITH INST 02/16/2013 7:24 AM EDT ANTERIOR CERVICAL DECOMPRESSION AND FUSION C-4-7, WITH INSTRUMENTATION documented in this encounter Results * FL C-ARM UP TO 1 HOUR (02/16/2013 10:00 AM EDT) Anatomical Region Laterality Modality [facility] Radiographic Imaging Narrative 02/16/2013 10:31 AM EDT Images were obtained for surgical purposes. ??See Shady Camargo's surgical note in the patient's chart for the findings. Procedure Note Michelle Melendez, RT - 02/16/2013 Images were obtained for surgical purposes. See Shady Camargo'ssurgical note in the patient's chart for the findings. us Shady Camargo MD IMG FLUOROSCOPY ORDERABLES Fi nal Result * (ABNORMAL) Glucose-Glucometer (02/16/2013 7:27 AM EDT) Glucose-Glucom eter 128(H) 74 - 106 MG/DL RALS POC INTERFACE 02/16/2013 7:27 AM EDT 02/16/2013 7:52 AM EDT us Unknown LAB BLOOD ORDERABLES Final Resul t [facility] ([employer]) RALS POC INTERFACE [address] [place] [address] documented in this encounter Visit Diagnoses Diagnosis Stenosis of cervical spine- Primary Spinal stenosis in cervical region documented in this encounter Administered Medications Inactive Administered Medications - up to 3 most recent administrations Medication Order MAR Action Action Date Dose Rate Site buffered lidocaine J-tip solution 0.2 mL 0.2 mL, Intradermal, Once, On Tue02/16/13 at 0630, For 1 dose, 0.2 mL, Pre-op, Routine Given 02/16/2013 7:09 AM EDT 0.2 mLs docusate sodium (COLACE) capsule 100 mg 100 mg, Oral, 2 times daily, First dose on Tue02/16/13 at 1200, Until Discontinued, Post-op, Routine Given 02/18/2013 7:39 AM EDT 100 mg Given 02/17/2013 7:26 PM EDT 100 mg Given 02/17/2013 7:49 AM EDT 100 mg hydrochlorothiazide (HYDRODIURIL) tablet 25 mg 25 mg, Oral, Daily, First dose on Tue02/16/13 at 1315, Until Discontinued, Routine Given 02/18/2013 7:39 AM EDT 25 mg HYDROcodone-acetaminophen (NORCO 10-325) 10-325 MG per tablet 1 tablet 1 tablet, Oral, Every 6 hours PRN, Moderate pain, Starting on Tue02/16/13 at 1210, Maximum Recommended Dose for Adults of Acetaminophen = 4 gm Per Day., Until Tue02/16/13 at 1554, Routine Given 02/16/2013 12:13 PM EDT 1 tablet HYDROcodone-acetaminophen (NORCO 10-325) 10-325 MG per tablet 1 tablet 1 tablet, Oral, Every 4 hours PRN, Moderate pain, Starting on Tue02/16/13 at 1600, Maximum Recommended Dose for Adults of Acetaminophen = 4 gm Per Day., Until Tue02/18/13 at 1334, Routine Given 02/17/2013 7:26 PM EDT 1 tablet Given 02/17/2013 12:07 PM EDT 1 tablet Given 02/16/2013 8:05 PM EDT 1 tablet HYDROmorphone HCl PF (DILAUDID) injection 1-2 mg 1-2 mg, Intravenous, Every 4 hours PRN, Severe pain, Once prior top discharge, Starting on Tue02/18/13 at 1056, For 1 dose, For IV administration, Dilute 2 mg to Final Volume of 10 ml and Give the Ordered Dose SLOW Push Over 2-3 Minutes., 2 mL, Until Tue02/18/13 at 1116, Routine Given 02/18/2013 11:16 AM EDT 1 mg HYDROmorphone pf (DILAUDID) injection 0.5 mg 0.5 mg, Intravenous, Every 5 min PRN, Severe pain, PL 7 to 10 (For Pain Relieve Not Improved by Morphine. Total Cumulative Dose 2 mg), Starting on Tue02/16/13 at 1023, For IV administration, Dilute 2 mg to Final Volume of 10 ml and Give the Ordered Dose SLOW Push Over 2-3 Minutes, 1 mL, Until Tue02/16/13 at 1252, PACU, Routine Given 02/16/2013 11:20 AM EDT 0.5 mg Given 02/16/2013 11:15 AM EDT 0.5 mg Given 02/16/2013 10:40 AM EDT 0.5 mg HYDROmorphone pf (DILAUDID) injection 1-2 mg 1-2 mg, Intravenous, Every 4 hours PRN, Severe pain, Starting on Tue02/16/13 at 1013, For IV administration, Dilute 2 mg to Final Volume of 10 ml and Give the Ordered Dose SLOW Push Over 2-3 Minutes., 1 mL, Until 02/18/13 at 1334, Routine Given 02/18/2013 10:18 AM EDT 2 mg Given 02/18/2013 6:17 AM EDT 2 mg Given 02/18/2013 1:00 AM EDT 2 mg lactated ringers infusion Intravenous, at 25 mL/hr, Continuous, Starting on Tue02/16/13 at 0630, KVO, 1,000 mL, Until Tue02/16/13 at 1252, Pre-op, Routine Restarted 02/16/2013 9:55 AM EDT mL New Bag 02/16/2013 7:10 AM EDT 25 mL/hr lisinopril (PRINIVIL,ZESTRIL) tablet 20 mg 20 mg, Oral, Daily, First dose on Tue02/16/13 at 1315, Until Discontinued, Routine Given 02/18/2013 7:39 AM EDT 20 mg morphine injection 2-4 mg 2-4 mg, Intravenous, Every 5 min PRN, Severe pain, PL 7 to 10 (Maxium Cumulative Dose 30 mg), Starting on Tue02/16/13 at 1023, 1 mL, Until Tue02/16/13 at 1252, PACU, Routine Given 02/16/2013 11:33 AM EDT 4 mg ondansetron (ZOFRAN) injection 4 mg 4 mg, Intravenous, Every 4 hours PRN, Nausea, Vomiting, once with Dilaudid before discharge home, Starting on Tue02/18/13 at 1056, For 1 dose, 2 mL, Until Tue02/18/13 at 1116, Routine Given 02/18/2013 11: 16 AM EDT 4 mg documented in this encounter Active and Recently Administered Medications Times are shown in EDT. Scheduled Medication Order 02/16/2013 02/17/2013 02/18/2013 buffered lidocaine J-tip solution 0.2 mL (COMPLETED) 0.2 mL, Intradermal, Once, On Tue02/16/13 at 0630, For 1 dose, 0.2 mL, Pre-op, Routine 0709 (Given - Provider: Natasha Rendon RN) ceFAZolin (KEFZOL/ANCEF) 2 g in dextrose 5 % 50 mL IVPB infusion (COMPLETED) 2 g, Intravenous, at 120 mL/hr, Once, On Tue02/16/13 at 0730, For 1 dose, 60 mL, Administer over 30 Minutes, Routine 0730 (Due)0758 (New Bag - Provider: Makenna Price CRNA) docusate sodium (COLACE) capsule 100 mg (CANCELED)(Linked Group 1) 100 mg, Oral, 2 times daily, First dose on Tue02/16/13 at 1200, Until Discontinued, Post-op, Routine 1330 (Not Given - Provider: Zulay Ceja RN - Reason: Other)2004 (Given - Provider: Kayce Hernandez RN) 0749 (Given - Provider: Mee Fuller RN)1926 (Given - Provider: Venessa Mcmillan, BELINDA) 0739 (Given - Provider: Mee Fuller RN) hydrochlorothiazide (HYDRODIURIL) tablet 25 mg (CANCELED)(Linked Group 2) 25 mg, Oral, Daily, First dose on Tue02/16/13 at 1315, Until Discontinued, Routine 1329 (Not Given - Provider: Zulay Ceja RN - Reason: Patient/family refused - Comment: PATIENT STATED HE TOOK THIS MED THIS MORNING) 0900 (Not Given - Provider: Mee Fuller RN - Reason: Order parameters not met) 0739 (Given - Provider: Mee Fuller RN)0900 (Due) lisinopril (PRINIVIL,ZESTRIL) tablet 20 mg (CANCELED)(Linked Group 2) 20 mg, Oral, Daily, First dose on Tue02/16/13 at 1315, Until Discontinued, Routine 1329 (Not Given - Provider: Zulay Ceja RN - Reason: Patient/family refused - Comment: PATIENT STATED HE TOOK THIS MEDICATION THIS MORNING) 0900 (Not Given - Provider: Mee Fuller RN - Reason: Order parameters not met) 0739 (Given - Provider: Mee Fuller RN - Comment: PER PT REQUEST.)0900 (Due) Continuous Medication Order 02/16/2013 02/17/2013 02/18/2013 lactated ringers infusion (CANCELED) Intravenous, at 25 mL/hr, Continuous, Starting on Tue02/16/13 at 0630, KVO, 1,000 mL, Until Tue02/16/13 at 1252, Pre-op, Routine 0710 (New Bag - Provider: Natasha Rendon, RN)0925 (Stopped - Provider: Makenna Price CRNA)0955 (Restarted - Provider: Makenna Price CRNA) PRN Medication Order 02/16/2013 02/17/2013 02/18/2013 gelatin adsorbable (GELFOAM) sponge (CANCELED) Intra-op PRN, Starting on Tue02/16/13 at 0807, Until Tue02/16/13 at 1018, Intra-op, Routine 0807 (Given - Provider: Shady Camargo MD - Comment: C4-7) HYDROcodone-acetaminophe n (NORCO 10-325) 10-325 MG per tablet 1 tablet (CANCELED) 1 tablet, Oral, Every 6 hours PRN, Moderate pain, Starting on Tue02/16/13 at 1210, Maximum Recommended Dose for Adults of Acetaminophen = 4 gm Per Day., Until Tue02/16/13 at 1554, Routine 1213 (Given - Provider: Flori Chris RN) HYDROcodone-acetaminophe n (NORCO 10-325) 10-325 MG per tablet 1 tablet (CANCELED) 1 tablet, Oral, Every 4 hours PRN, Moderate pain, Starting on Tue02/16/13 at 1600, Maximum Recommended Dose for Adults of Acetaminophen = 4 gm Per Day., Until Tue02/18/13 at 1334, Routine 1600 (Given - Provider: Zulay Ceja, BELINDA)2004 (Given - Provider: Kayce Hernandez, RN) 1207 (Given - Provider: Mee Fuller, BELINDA - Comment: PAIN LEVEL 8.)1926 (Given - Provider: Venessa Mcmillan, BELINDA) HYDROmorphone HCl PF (DILAUDID) injection 1-2 mg (COMPLETED) 1-2 mg, Intravenous, Every 4 hours PRN, Severe pain, Once prior top discharge, Starting on Tue02/18/13 at 1056, For 1 dose, For IV administration, Dilute 2 mg to Final Volume of 10 ml and Give the Ordered Dose SLOW Push Over 2-3 Minutes., 2 mL, Until 02/18/13 at 1116, Routine 1116 (Given - Provider: Mee Fuller, BELINDA) HYDROmorphone pf (DILAUDID) injection 0.5 mg (CANCELED)(Linked Group 3) 0.5 mg, Intravenous, Every 5 min PRN, Severe pain, PL 7 to 10 (For Pain Relieve Not Improved by Morphine. Total Cumulative Dose 2 mg), Starting on Tue02/16/13 at 1023, For IV administration, Dilute 2 mg to Final Volume of 10 ml and Give the Ordered Dose SLOW Push Over 2-3 Minutes, 1 mL, Until Tue02/16/13 at 1252, PACU, Routine 1027 (Given - Provider: Georgi Tubbs RN)1040 (Given - Provider: Georgi Tubbs RN)1115 (Given - Provider: Georgi Tubbs RN)1120 (Given - Provider: Georgi Tubbs RN)1133 (See Alternative - Provider: Georgi Tubbs RN) HYDROmorphone pf (DILAUDID) injection 1-2 mg (CANCELED) 1-2 mg, Intravenous, Every 4 hours PRN, Severe pain, Starting on Tue02/16/13 at 1013, For IV administration, Dilute 2 mg to Final Volume of 10 ml and Give the Ordered Dose SLOW Push Over 2-3 Minutes., 1 mL, Until 02/18/13 at 1334, Routine 1328 (Given - Provider: Zulay Ceja, BELINDA)1813 (Given - Provider: Zulay Ceja RN)2211 (Given - Provider: Kayce Hernandez RN) 0313 (Given - Provider: Venessa Mcmillan, BELINDA)0749 (Given - Provider: Mee Fuller, BELINDA - Comment: PAIN LEVEL 8. LEFT ARM DOWN TO HAND.)1454 (Given - Provider: Mee Fuller, BELINDA - Comment: PAIN LEVEL 8.)2053 (Given - Provider: Venessa Mcmillan, BELINDA) 0100 (Given - Provider: Venessa Mcmillan, BELINDA)0617 (Given - Provider: Venessa Mcmillan, RN)1018 (Given - Provider: Mee Fuller RN - Comment: PAIN LEVEL 8.) morphine injection 2-4 mg (CANCELED)(Linked Group 3) 2-4 mg, Intravenous, Every 5 min PRN, Severe pain, PL 7 to 10 (Maxium Cumulative Dose 30 mg), Starting on Tue02/16/13 at 1023, 1 mL, Until Tue02/16/13 at 1252, PACU, Routine 1027 (See Alternative - Provider: Georgi Tubbs RN)1040 (See Alternative - Provider: Georgi Tubbs RN)1115 (See Alternative - Provider: Georgi Tubbs RN)1120 (See Alternative - Provider: Georgi Tubbs RN)1133 (Given - Provider: Georgi Tubbs RN) ondansetron (ZOFRAN) injection 4 mg (COMPLETED) 4 mg, Intravenous, Every 4 hours PRN, Nausea, Vomiting, once with Dilaudid before discharge home, Starting on Tue02/18/13 at 1056, For 1 dose, 2 mL, Until Tue02/18/13 at 1116, Routine 1116 (Given - Provider: Mee Fuller RN) thrombin 5000 unit solution (CANCELED) Intra-op PRN, Starting on Tue02/16/13 at 0807, Topical Use Only., Until Tue02/16/13 at 1018, Intra-op, Routine 0807 (Given - Provider: Shady Camargo MD - Comment: C4-7) Linked Groups Order Group 1: docusate sodium (COLACE) capsule 100 mg (CANCELED)Jump to med 100 mg, Oral, 2 times daily, First dose on Tue02/16/13 at 1200, Until Discontinued, Post-op, Routine And magnesium hydroxide (MILK OF MAGNESIA) 400 MG/5ML suspension 15 mL (CANCELED) 15 mL, Oral, Daily as needed, Constipation, Starting on Tue02/16/13 at 1148, Shake Well., 30 mL, Until 02/18/13 at 1334, Post-op, Routine And bisacodyl (DULCOLAX) suppository 10 mg (CANCELED) 10 mg, Rectal, Daily as needed, Constipation, Starting on Tue02/16/13 at 1148, Until 02/18/13 at 1334, Post-op, Routine Group 2: hydrochlorothiazide (HYDRODIURIL) tablet 25 mg (CANCELED)Jump to med 25 mg, Oral, Daily, First dose on Tue02/16/13 at 1315, Until Discontinued, Routine And lisinopril (PRINIVIL,ZESTRIL) tablet 20 mg (CANCELED)Jump to med 20 mg, Oral, Daily, First dose on Tue02/16/13 at 1315, Until Discontinued, Routine Group 3: morphine injection 2-4 mg (CANCELED)Jump to med 2-4 mg, Intravenous, Every 5 min PRN, Severe pain, PL 7 to 10 (Maxium Cumulative Dose 30 mg), Starting on Tue02/16/13 at 1023, 1 mL, Until Tue02/16/13 at 1252, PACU, Routine Or HYDROmorphone pf (DILAUDID) injection 0.5 mg (CANCELED)Jump to med 0.5 mg, Intravenous, Every 5 min PRN, Severe pain, PL 7 to 10 (For Pain Relieve Not Improved by Morphine. Total Cumulative Dose 2 mg), Starting on Tue02/16/13 at 1023, For IV administration, Dilute 2 mg to Final Volume of 10 ml and Give the Ordered Dose SLOW Push Over 2-3 Minutes, 1 mL, Until Tue02/16/13 at 1252, PACU, Routine documented in this encounter Care Teams [employer] Relationship Specialty Start Date End Date None, Physician PCP - General 05/24/12 01/23/14 documented as of this encounter
--- OUTSIDE RECORDS SUMMARY | 2024-10-10 22:53 | XMS_ITS | Encounter Summary ---
Author Organization [facility] Address [address] [place] [address] Care Team Providers Care Fashion Intern Name Role Phone System, Provider Not In Primary Care Provider Un available Reason for Visit * Reason Comments Shortness of Breath WHEEZING DRY COUGH Encounter Details Date Type Department Care Team (Late st Contact Info) Description 11/17/2014 10:00 AM EST Office Visit [facility] - [address] [address] Lizbeth Orellana MD [address] [place] [address] Acute exacerbation of COPD with asthma (Primary Dx); URI (upper respiratory infection); HTN (hypertension), benign Social History Tobacco Use Types Packs/Day Years [...] Sign Reading Time Taken Comments Blood Pressure 137/80 11/17/2014 10:21 AM EST Pulse 103 11/17/2014 10:21 AM EST Temperature 36.7 ??C (98 ??F) 11/17/2014 10:21 AM EST Respiratory Rate 18 11/17/2014 10:21 AM EST Oxygen Saturation 99% 11/17/2014 11:38 AM EST room air Inhaled Oxygen Concentration - - Weight 91.6 kg (202 lb) 11/17/2014 10:21 AM EST Height - - Body Mass Index 29.83 04/01/2014 9:30 AM EDT documented in this encounter Functional Status * Patient's Vision Adequate to Safely Complete Daily Activities Answer Date of Assessment Author Yes 02/16/2013 1:00 PM EDT Delmer Cjea RN documented as of this encounter Patient Instructions * Patient Instructions* Lizbeth Orellana MD - 11/17/2014 11:55 AM EST Pt instructions Fluids, Fever monitoring rx- otc tylenol prn otc plain mucinex bid x10 days Pt to use albuterol inh 2 puffs q 6 hrs that has at home for next 24 hrs than prn Chest x-r today Er if worse ,no better documented in this encounter Progress Notes * Lizbeth Orellana MD - 11/17/2014 11:51 AM EST C/o Chest feels tight , Asthma acting up for last several days 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 Review of Systems Constitutional No Fever,chills no sore throat neg for bodyache , No Headache HEENT: Negative for ear pain, , rhinorrhea,.sneezing, postnasal drip. Eyes: Negative for photophobia, pain, redness visual disturbance. Respiratory: shortness of breath , wheezing+ cough+ chest feels tight + Cardiovascular: Negative for chest pain, palpitations Gastrointestinal: Negative for nausea, vomiting, abdominal pain, diarrhea, Genitourinary: Negative for dysuria, urgency, frequency, hematuria Skin: Negative for rash. no skin lesions Neurological: Negative for dizziness, syncope, Psychiatric/Behavioral: Negative for behavioral problems,no hi no si Objective: Physical Exam In mild resp distress No use of accessory muscles well-developed , well-nourished. Ext ears normal Head: Normocephalic, atraumatic. Mouth/Throat: no congestion seen No oropharyngeal exudate. Eyes: Conjunctivae and EOM are normal. Cardiovascular: Sinus Tachycardia+ , normal heart sounds. no gallop. No murmur Pulmonary/Chest: Effort bilateral breath sounds decreased No wheezes. no rales. Abdominal: Soft no distension, no tenderness. Lymphadenopathy: no cervical adenopathy. no supraclavicular Lymphadenopathy Neurological: Patient is alert, awake , ox 3 speech normal No focal deficit Skin No rash noted. Skin turgror fair No peripheral cyanosis Pt felt better after breathing rx Rpt o2 at 99 on room air P/e after breathing rx Lungs shante air entry fair no rales Only occ few post resp rhonchi + Yovanny was seen today for shortness of breath. Diagnoses and associated orders for this visit: Acute exacerbation of COPD with asthma - Pulse Oximetry URI (upper respiratory infection) HTN (hypertension), benign Other Orders - albuterol-ipratropium (DUO-NEB) 0.5-2.5 mg/3 mL nebulizer 3 mL; Take 3 mLs by nebulization once - methylPREDNISolone sodium succinate (Solu-MEDROL) injection 125 mg; Inject 2 mLs into the muscle once - methylPREDNISolone (MEDROL, DAVID,) 4 MG tablet; Use as directed on package - azithromycin (ZITHROMAX) 250 MG tablet; Take 2 tablets by mouth once for 1 dose Then take 1 tablet (250 mg) once daily on Days 2 through 5. documented in this encounter Plan of Treatment Upcoming Encounters Date Type Department Care Team (Late st Contact Info) Description 01/24/2025 1:40 PM EDT Office Visit [facility] - [address] [place] [id number] Damien Cárdenas, TANG [address] [place] [address] documented as of this encounter Visit Diagnoses Diagnosis Acute exacerbation of COPD with asthma- Primary URI (upper respiratory infection) Acute upper respiratory infections of unspecified site HTN (hypertension), benign Essential hypertension, benign documented in this encounter Administered Medications Inactive Administered Medications - up to 3 most recent administrations Medication Order MAR Action Action Date Dose Rate Site albuterol-ipratropium (DUO-NEB) 0.5-2.5 mg/3 mL nebulizer 3 mL 3 mL, Nebulization, Once, On 11/17/14 at 1115, For 1 dose, 3 mL, Routine Given 11/17/2014 11:13 AM EST 3 mLs methylPREDNISolone sodium succinate (Solu-MEDROL) injection 125 mg 125 mg, Intramuscular, Once, On 11/17/14 at 1115, For 1 dose, 2 mL, Routine Given 11/17/2014 11:21 AM EST 125 mg Right Ventrogluteal documented in this encounter Care Teams Fashion Intern Relationship Specialty Start Date End Date System, Provider Not In PCP - General 11/17/14 11/13/17 documented as of this encounter
--- OUTSIDE RECORDS SUMMARY | 2024-10-10 22:53 | XMS_ITS | Encounter Summary ---
Author Organization [facility] Address [address] [place] [address] Care Team Providers Care Upfitter Name Role Phone Keanu Brooks DO Primary Care Provider [phone] Encounter Details Date Type Department Care Team (Late Contact Info) Description 01/19/2021 7:30 AM EDT Immunization [facility] - [address] [place] [address] Social History Tobacco Use Types Packs/Day Years [...] Ceja RN documented as of this encounter Plan of Treatment Upcoming Encounters Date Type Department Care Team (Late Contact Info) Description 01/24/2025 1:40 PM EDT Office Visit [facility] - [address] [place] [address] Damien Cárdenas, ROLL CARRIER [address] [place] [address] documented as of this encounter Visit Diagnoses Not on filedocumented in this encounter Care Teams Upfitter Relationship Specialty Start Date End Date Keanu Brooks DO PCP - General Family Medicine 01/14/20 documented as of this encounter
--- OUTSIDE RECORDS SUMMARY | 2024-10-10 22:53 | XMS_ITS | Encounter Summary ---
Author Organization [facility] Address [address] [place] [address] Care Team Providers Care Policy Cancellation Clerk Name Role Phone Lori Muniz MD Primary Care Provider [phone] Reason for Visit * Reason Comments Cough dry cough, shortness of breath, wheezing x2 months patient has asthma Encounter Details Date Type Department Care Team (Late st Contact Info) Description 09/13/2014 8:30 PM EST Office Visit [address] [id number] Pinky Arias, [employer] [address] [place] [address] Wheezing (Primary Dx); Cough; Asthma attack Social History Tobacco Use Types Packs/Day Years [...] Sign Reading Time Taken Comments Blood Pressure 105/56 09/13/2014 8:37 PM EST Pulse 83 09/13/2014 8:37 PM EST Temperature 36.8 ??C (98.3 ??F) 09/13/2014 8:37 PM ES T Respiratory Rate 18 09/13/2014 8:37 PM EST Oxygen Saturation 96% 09/13/2014 8:37 PM EST Inhaled Oxygen Concentration - - Weight 89.8 kg (198 lb) 09/13/2014 8:37 PM EST Height - - Body Mass Index 29.24 04/01/2014 9:30 AM EDT documented in this encounter Functional Status * Patient's Vision Adequate to Safely Complete Daily Activities Answer Date of Assessment Author Yes 02/16/2013 1:00 PM EDT Delmer Ceja RN documented as of this encounter Patient Instructions * Patient Instructions* Pinky El, [employer] DIGGER - 09/13/2014 9:00 PM EST Bronchospasm WHAT YOU SHOULD KNOW: Bronchospasm is a narrowing of the airway that usually comes and goes. You may be at risk for bronchospasm if you have a chest cold or allergies. You may also be at risk if you are bothered by air pollution, certain medicines, cold, dry air, smoke, or strong odors. Exercise may worsen your symptoms. Bronchospasms may make it hard for you to breathe. AFTER YOU LEAVE: Medicines: You may need any of the following: ?? Bronchodilators help expand your airway for easier breathing. Some of these medicines may help prevent future spasms. ?? Inhaled steroids help reduce swelling in your airway and soothe your breathing. These are used for long-term control. ?? Anticholinergics help relax and open your airway. ?? Take your medicine as directed. Call your healthcare provider if you think your medicine is not helping or if you have side effects. Tell him if you are allergic to any medicine. Keep a list of the medicines, vitamins, and herbs you take. Include the amounts, and when and why you take them. Bring the list or the pill bottles to follow-up visits. Carry your medicine list with you in case of an emergency. Follow up with your primary healthcare provider as directed: You may need more testing to find the cause of your condition. Write down your questions so you remember to ask them during your visits. Self-care: ?? Avoid triggers. ?? Warm up before you exercise. Ask your primary healthcare provider about the best exercise plan for you. ?? Try to avoid people who are sick. Ask your primary healthcare provider if you need a flu or pneumonia vaccine. ?? Breathe through your nose when you are in cold, dry air or weather. This may help reduce lung irritation by warming the air before it reaches your lungs. Contact your primary healthcare provider if: ?? You have a fever. ?? You have a cough that will not go away. ?? Your wheezing worsens. ?? You have questions or concerns about your condition or care. Seek care immediately or call 911 if: ?? You cough or spit up blood. ?? You are short of breath. ?? You have blue fingernails or toenails. ?? You have chest pain. ?? You have a fast or uneven heartbeat. ?? 2013 [employer]. Information is for End User's use only and may not be sold, redistributed or otherwise used for commercial purposes. All illustrations and images included in CareNotes?? are the copyrighted property of [employer]. or [employer]. The above information is an basket hand braider only. It is not intended as medical advice for individual conditions or treatments. Talk to your doctor, nurse or pharmacist before following any medical regimen to see if it is safe and effective for you. Schedule appt with your primary care doctor to evaluate your asthma once you are feeling better. documented in this encounter Progress Notes * Pinky El APRN - 09/13/2014 9:01 PM EST Patient Identification: Name: Yovanny Steve Age: 54 yr/o Gender: male : 1960 PCP: Lori Muniz MD Chief Complaint: Yovanny Steve is presenting today for Cough . 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 [place] 2- 3 months ago where he inhaled a lot ofdusk; unsure if it triggered asthma. Has gets SOA with any exertion (with heavy lifting/throwing atwork and sex). Had kidney biopsy about a year ago; was placed on daily oral steroids. Those steroids were stopped about 2 months ago. Cough This is a chronic problem. Episode onset: approx 2 months ago. The problem occurs constantly. The problem has been gradually worsening. The cough is non- productive. There has been no fever. Associated symptoms include shortness of breath and wheezing. Treatments tried: Dulera twice daily; increase in rescue inhaler to 4-5 times a day. The treatment provided no relief. He is not a smoker. His pastmedical history is significant for asthma. History, Medications, Allergies, and Review of Symptoms: Past Medical History: Past Medical History Diagnosis Date ??? Sleep apnea ??? CPAP (continuous positive airway pressure) dependence ??? Degenerative disc disease, cervical ??? Cervical stenosis of spine ??? Asthma ??? Hypertension ??? ED (erectile dysfunction) Past Surgical History: Past Surgical History Procedure Laterality Date ??? Shoulder surgery 2010 ??? Knee surgery 2011 FOR TORN LIGAMENT ??? Back surgery 2005 ??? Anterior cervical discectomy w/ fusion C6 - C8 ??? Lumbar disectomy L5 - S1 Current Medications: Outpatient Prescriptions as of 09/13/2014 Medication Sig Dispense Refill ??? lisinopril (PRINIVIL,ZESTRIL) 10 MG tablet Take 10 mg by mouth daily ??? traZODone (DESYREL) 100 MG tablet Take 1 tablet by mouth nightly 30 tablet 3 ??? tadalafil (CIALIS) 20 MG tablet Take 1 tablet (20 mg total) by mouth daily as needed for Erectile Dysfunction. 10 tablet 0 ??? traZODone (DESYREL) 100 MG tablet Take 0.5 tablets (50 mg total) by mouth nightly as needed forSleep. 30 tablet 0 ??? albuterol (PROVENTIL HFA;VENTOLIN HFA) 108 (90 BASE) MCG/ACT inhaler Inhale 2 puffs into the lungs as needed. ??? HYDROcodone-acetaminophen (NORCO 10-325) 10-325 MG per tablet Take 1 tablet by mouth every 6 (six) hours as needed. ??? lisinopril-hydrochlorothiazide (PRINZIDE,ZESTORETIC) 20-25 MG per tablet Take 1 tablet by mouthdaily. Allergies: Allergies as of 09/13/2014 Review Complete On: 09/13/2014 By: Pinky El APRN No Known Allergies Family Medical History: Family History Problem Relation Age of Onset ??? Other Mother pneumonia ??? Cancer, Other or Unknown Type Father prostate Social History: History Substance Use Topics ??? Smoking status: Never Smoker ??? Smokeless tobacco: Never Used ??? Alcohol Use: Yes Comment: OCCASIONAL Review of Symptoms: Review of Systems Constitutional: Negative for fever. Respiratory: Positive for cough, shortness of breath and wheezing. Negative for sputum production. Physical Exam: BP 105/56 Pulse 83 Temp(Src) 98.3 ??F (36.8 ??C) (Oral) Resp 18 Wt 198 lb (89.812 kg) SpO2 96% Physical Exam Constitutional: He is oriented to person, place, and time. He appears well- developed and well-nourished. He is active. No distress. HENT: Head: Normocephalic. Mouth/Throat: Oropharynx is clear and moist and mucous membranes are normal. No oropharyngeal exudate. Eyes: Conjunctivae are normal. Right eye exhibits no discharge. Left eye exhibits no discharge. Neck: Normal range of motion. Neck supple. Cardiovascular: Normal rate, regular rhythm and normal heart sounds. No murmur heard. Pulmonary/Chest: Effort normal. No respiratory distress. He has wheezes in the right upper field, the right middle field, the left upper field, the left middle field and the left lower field. Musculoskeletal: Normal range of motion. Lymphadenopathy: Head (right side): No tonsillar adenopathy present. Head (left side): No tonsillar adenopathy present. He has no cervical adenopathy. Neurological: He is alert and oriented to person, place, and time. He has normal strength. No sensory deficit. Skin: Skin is warm, dry and intact. Psychiatric: He has a normal mood and affect. His speech is normal and behavior is normal. Judgmentand thought content normal. Vitals reviewed. Assessment/Plan: Diagnoses and orders/medications from this encounter 1. Wheezing albuterol-ipratropium (DUO-NEB) 0.5-2.5 mg/3 mL nebulizer 3 mL triamcinolone acetonide (KENALOG-40) injection 40 mg 2. Cough albuterol-ipratropium (DUO-NEB) 0.5-2.5 mg/3 mL nebulizer 3 mL 3. Asthma attack methylPREDNISolone (DAVID SHEPARD,) 4 MG tablet Encounter Medications Signed Prescriptions Disp Refills ??? methylPREDNISolone (MEDROL, DAVID,) 4 MG tablet 21 tablet 0 Sig: Use as directed on package Results this visit (if any) No results found for this visit on 09/13/14. Follow-up (if any) No Follow-up on file. Patient Instructions Bronchospasm WHAT YOU SHOULD KNOW: Bronchospasm is a narrowing of the airway that usually comes and goes. You may be at risk for bronchospasm if you have a chest cold or allergies. You may also be at risk if you are bothered by air pollution, certain medicines, cold, dry air, smoke, or strong odors. Exercise may worsen your symptoms. Bronchospasms may make it hard for you to breathe. AFTER YOU LEAVE: Medicines: You may need any of the following: ?? Bronchodilators help expand your airway for easier breathing. Some of these medicines may help prevent future spasms. ?? Inhaled steroids help reduce swelling in your airway and soothe your breathing. These are used for long-term control. ?? Anticholinergics help relax and open your airway. ?? Take your medicine as directed. Call your healthcare provider if you think your medicine is not helping or if you have side effects. Tell him if you are allergic to any medicine. Keep a list of the medicines, vitamins, and herbs you take. Include the amounts, and when and why you take them. Bring the list or the pill bottles to follow-up visits. Carry your medicine list with you in case of an emergency. Follow up with your primary healthcare provider as directed: You may need more testing to find the cause of your condition. Write down your questions so you remember to ask them during your visits. Self-care: ?? Avoid triggers. ?? Warm up before you exercise. Ask your primary healthcare provider about the best exercise plan for you. ?? Try to avoid people who are sick. Ask your primary healthcare provider if you need a flu or pneumonia vaccine. ?? Breathe through your nose when you are in cold, dry air or weather. This may help reduce lung irritation by warming the air before it reaches your lungs. Contact your primary healthcare provider if: ?? You have a fever. ?? You have a cough that will not go away. ?? Your wheezing worsens. ?? You have questions or concerns about your condition or care. Seek care immediately or call 911 if: ?? You cough or spit up blood. ?? You are short of breath. ?? You have blue fingernails or toenails. ?? You have chest pain. ?? You have a fast or uneven heartbeat. ?? 2013 [employer] Information is for End User's use only and may not be sold, redistributed or otherwise used for commercial purposes. All illustrations and images included in CareNotes?? are the copyrighted property of [employer]. or [employer]. The above information is an basket hand braider only. It is not intended as medical advice for individual conditions or treatments. Talk to your doctor, nurse or pharmacist before following any medical regimen to see if it is safe and effective for you. Instructed to follow-up with PCP for evaluation of asthma when feeling better. documented in this encounter Plan of Treatment Upcoming Encounters Date Type Department Care Team (Late st Contact Info) Description 01/24/2025 1:40 PM EDT Office Visit [facility] - [address] [id number] Damien Cárdenas APRN [address] [place], [place] [id number] documented as of this encounter Visit Diagnoses Diagnosis Wheezing- Primary Cough Asthma attack Unspecified asthma documented in this encounter Administered Medications Inactive Administered Medications - up to 3 most recent administrations Medication Order MAR Action Action Date Dose Rate Site albuterol-ipratropium (DUO-NEB) 0.5-2.5 mg/3 mL nebulizer 3 mL 3 mL, Nebulization, Once, On Tue09/13/14 at 2100, For 1 dose, 3 mL, RoutineIndications:Wheez ing,Cough Given 09/13/2014 9:05 PM EST 3 mLs albuterol-ipratropium (DUO-NEB) 0.5-2.5 mg/3 mL nebulizer 3 mL 3 mL, Nebulization, Once, On Tue09/13/14 at 2145, For 1 dose, 3 mL, RoutineIndications:Wheez ing Given 09/13/2014 9:42 PM EST 3 mLs triamcinolone acetonide (KENALOG-40) injection 40 mg 40 mg, Intramuscular, Once, On Tue09/13/14 at 2100, For 1 dose, 1 mL, RoutineIndications:Wheez ing Given 09/13/2014 9:02 PM EST 40 mg Right Ventrogluteal documented in this encounter Care Teams Policy Cancellation Clerk Relationship Specialty Start Date End Date Lori Muniz MD PCP - General Family Medicine 01/24/14 11/16/14 documented as of this encounter
--- OUTSIDE RECORDS SUMMARY | 2024-10-10 22:53 | XMS_ITS | Encounter Summary ---
Author Organization [facility] Address [address] [place] [address] Care Team Providers Care Marketing Development Representative Name Role Phone None, Physician Primary Care Provider Unavailabl e Reason for Visit * Reason Comments Shortness of Breath congestion, started tuesday (hx of asthma) Encounter Details Date Type Department Care Team (Late st Contact Info) Description 08/10/2019 7:15 AM EST Office Visit [address] [address] Ange Eagle, TANG Exacerbation of asthma, unspecified asthma severity, unspecified whether persistent (Primary Dx); Bronchitis Social History Tobacco Use Types Packs/Day Years [...] Sign Reading Time Taken Comments Blood Pressure 146/89 08/10/2019 7:11 AM EST Pulse 104 08/10/2019 7:11 AM EST Temperature 37.2 ??C (99 ??F) 08/10/2019 7:11 AM EST Respiratory Rate 22 08/10/2019 7:11 AM EST Oxygen Saturation 98% 08/10/2019 7:11 AM EST Inhaled Oxygen Concentration - - Weight 88.9 kg (196 lb) 08/10/2019 7:11 AM EST Height - - Body Mass Index 28.94 11/20/2014 6:52 PM EST documented in this encounter Functional Status * Patient's Vision Adequate to Safely Complete Daily Activities Answer Date of Assessment Author Yes 02/16/2013 1:00 PM EDT Delmer Ceja RN documented as of this encounter Patient Instructions * Patient Instructions* Ange Eagle, MANAGER ADMINISTRATIVE - 08/10/2019 8:48 AM EST Images from the original note were not included. Albuerol inhaler every 4 hours as directed for 2 days, then as needed Steroids as prescribed If you develop fever, chest tightness, body aches / chills, and or are not improving, return to theICC or go to the ED. Drink plenty of fluids. Broncoespasmo LO QUE NECESITA SABER: El brancoespasmo es lilliana contracci??n de las v??as respiratorias que generalmente aparece o desaparece. Usted puede correr riesgo de sufrir de broncoespasmo si tiene un resfriado de pecho o alergias. Usted tambi??n puede estar en riesgo si a usted le afecta la contaminaci??n del aire, ciertos medicamentos, el fr??o, el aire seco, el humo o los olores cesia. El ejercicio puede empeorar deep s??ntom as. Los broncoespasmos pueden hacer que sea dif??cil para que usted pueda respirar. INSTRUCCIONES SOBRE EL [facility]: Medicamentos: Es posible que usted necesite alguno de los siguientes: ?? Los broncodilatadores ayudan a expandir deep v??as respiratorias para mejorar la respiraci??n. Algunos de estos medicamentos pueden ayudar a evitar futuros espasmos. ?? La inhalaci??n de esteroides ayuda a reducir la inflamaci??n de deep v??as a??reas y aliviar bauman respiraci??n. Estos se utilizan a yesica plazo por control. ?? Los anticolin??rgicos ayudan a relajar y ensanchar deep v??as respiratorias. ?? Norman deep medicamentos conner se le haya indicado. Consulte con bauman m??dico si usted jarvis que bauman medicamento no le est?? ayudando o si presenta efectos secundarios. Inf??rmele si es al??rgico a alg??nmedicamento. Mantenga lilliana lista actualizada de los medicamentos, las vitaminas y los productos herbales que rolando. Incluya los siguientes datos de los medicamentos: cantidad, frecuencia y motivo de administraci??n. Traiga con usted la lista o los envases de la p??ldoras a deep citas de seguimiento. Lleve la lista de los medicamentos con usted en valdo de lilliana emergencia. Acuda a deep consultas de control con bauman m??dico seg??n le indicaron. Es posible que necesite m??s ex??menes para averiguar la causa de bauman condici??n. Anote deep preguntas para que se acuerde de hacerlas too deep visitas. Cuidados personales: ?? Evite los desencadenantes. ?? Entre en calor antes de hacer ejercicio. Pregunte a bauman m??dico acerca del mejor plan de ejercicio para usted. ?? Trate de evitar el contacto con personas que est??n enfermas. Pregunte a bauman m??dico si usted debe vacunarse contra la gripe o la neumon??a. ?? Respire por bauman nariz cuando se encuentre en un clima fr??o o el aire est?? fr??o o seco. [place] puede ayudar a reducir la irritaci??n en deep pulmones al calentar el aire antes que llegue a los pulmones. Preg??ntele a bauman m??dico qu?? vitaminas y minerales son adecuados para usted. ?? Usted tiene fiebre. ?? Usted tiene lilliana tos que no desaparece. ?? Bauman sibilancia empeora. ?? Usted tiene preguntas o inquietudes acerca de bauman condici??n o cuidado. Regrese a la dede de emergencias si: ?? Usted tose o escupe suad. ?? Usted tiene dificultad para respirar. ?? Usted tiene las u??as de las tova o de los pies azuladas. ?? Usted tiene dolor en el pecho. ?? Usted tiene latidos card??acos acelerados o irregulares. ?? Copyright [employer] Information is for End User's use only and may not be sold, redistributed or otherwise used for commercial purposes. All illustrations and images included in CareNotes?? are the copyrighted property of [employer] or [employer] Esta informaci??n es s??lo para uso en educaci??n. Bauman intenci??n no es darle un consejo m??dico sobre enfermedades o tratamientos. Colsulte con bauman m??dico, enfermera o farmac??utico antes de seguir cualquier r??gimen m??dico para saber si es seguro y efectivo para usted. Acute Bronchitis WHAT YOU NEED TO KNOW: Acute bronchitis is swelling and irritation in the air passages of your lungs. This irritation may cause you to cough or have other breathing problems. Acute bronchitis often starts because of another illness, such as a cold or the flu. The illness spreads from your nose and throat to your windpipeand airways. Bronchitis is often called a chest cold. Acute bronchitis lasts about 3 to 6 weeks andis usually not a serious illness. Your cough can last for several weeks. DISCHARGE INSTRUCTIONS: Return to the emergency department if: ?? You cough up blood. ?? Your lips or fingernails turn blue. ?? You feel like you are not getting enough air when you breathe. Contact your healthcare provider if: ?? You have a fever. ?? Your breathing problems do not go away or get worse. ?? Your cough does not get better within 4 weeks. ?? You have questions or concerns about your condition or care. Self-care: ?? Get more rest. Rest helps your body to heal. Slowly start to do more each day. Rest when you feel it is needed. ?? Avoid irritants in the air. Avoid chemicals, fumes, and dust. Wear a face mask if you must work around dust or fumes. Stay inside on days when air pollution levels are high. If you have allergies,stay inside when pollen counts are high. Do not use aerosol products, such as spray-on deodorant, bug spray, and hair spray. ?? Do not smoke or be around others who smoke. Nicotine and other chemicals in cigarettes and cigars damages the cilia that move mucus out of your lungs. Ask your healthcare provider for information if you currently smoke and need help to quit. E-cigarettes or smokeless tobacco still contain nicotine. Talk to your healthcare provider before you use these products. ?? Drink liquids as directed. Liquids help keep your air passages moist and help you cough up mucus. You may need to drink more liquids when you have acute bronchitis. Ask how much liquid to drink each day and which liquids are best for you. ?? Use a humidifier or vaporizer. Use a cool mist humidifier or a vaporizer to increase air moisture in your home. This may make it easier for you to breathe and help decrease your cough. Decrease risk for acute bronchitis: ?? Get the vaccinations you need. Ask your healthcare provider if you should get vaccinated againstthe flu or pneumonia. ?? Prevent the spread of germs. You can decrease your risk of acute bronchitis and other illnesses by doing the following: ? Wash your hands often with soap and water. Carry germ-killing hand lotion or gel with you. You can use the lotion or gel to clean your hands when soap and water are not available. ? Do not touch your eyes, nose, or mouth unless you have washed your hands first. ? Always cover your mouth when you cough to prevent the spread of germs. It is best to cough into atissue or your shirt sleeve instead of into your hand. Ask those around you cover their mouths whenthey cough. ? Try to avoid people who have a cold or the flu. If you are sick, stay away from others as much aspossible. Medicines: Your healthcare provider may give you any of the following: ?? Ibuprofen or acetaminophen are medicines that help lower your fever. They are available without a doctor's order. Ask your healthcare provider which medicine is right for you. Ask how much to takeand how often to take it. Follow directions. These medicines can cause stomach bleeding if not taken correctly. Ibuprofen can cause kidney damage. Do not take ibuprofen if you have kidney disease, anulcer, or allergies to aspirin. Acetaminophen can cause liver damage. Do not take more than 4,000 milligrams in 24 hours. ?? Decongestants help loosen mucus in your lungs and make it easier to cough up. This can help you breathe easier. ?? Cough suppressants decrease your urge to cough. If your cough produces mucus, do not take a cough suppressant unless your healthcare provider tells you to. Your healthcare provider may suggest that you take a cough suppressant at night so you can rest. ?? Inhalers may be given. Your healthcare provider may give you one or more inhalers to help you breathe easier and cough less. An inhaler gives your medicine to open your airways. Ask your healthcare provider to show you how to use your inhaler correctly. ?? Take your medicine as directed. Contact your healthcare provider if you think your medicine is not helping or if you have side effects. Tell him of her if you are allergic to any medicine. Keep a list of the medicines, vitamins, and herbs you take. Include the amounts, and when and why you take them. Bring the list or the pill bottles to follow-up visits. Carry your medicine list with you in case of an emergency. Follow up with your healthcare provider as directed: Write down questions you have so you will remember to ask them during your follow-up visits. ?? Copyright [employer] 2018 Information is for End User's use only and may not be sold, redistributed or otherwise used for commercial purposes. All illustrations and images included in CareNotes?? are the copyrighted property of [employer] or [employer] The above information is an multimedia educational specialist only. It is not intended as medical advice for individual conditions or treatments. Talk to your doctor, nurse or pharmacist before following any medical regimen to see if it is safe and effective for you. documented in this encounter Progress Notes * Ange Eagle APRN - 08/10/2019 7:20 AM EST Patient Identification: Name: Yovanny Steve Age: 59 yr/o Gender: male : 1960 PCP: None, Physician Chief Complaint: Yovanny Steve is presenting today for Shortness of Breath (congestion, started tuesday (hx of asthma)) . History of Present Illness: HPI The pt is a 59 yom with z hx of asthma who presents today with a cc of SOA onset 4 days prior. Reports a recent cough which has recently become productive of mucus and associated nasal congestion. Nosore throat or pain. No vomiting. He did have some chest pain with his cough initially but that hasresolved. He is unsure of fever. Tried OTC mucinex , zicam, and alkaseltzer cold and flu with some relief of symptoms. He does have a rescue inhaler which he has been using frequently over the last few days but reports he would like a breathing treatment. Received the flu vaccine 2 weeks ago and the pna vaccine. History, Medications, Allergies, and Review of Symptoms: Past Medical History: Past Medical History: Diagnosis Date ??? Asthma ??? Cervical stenosis of spine ??? CPAP (continuous positive airway pressure) dependence ??? Degenerative disc disease, cervical ??? ED (erectile dysfunction) ??? Hypertension ??? Sleep apnea Past Surgical History: Past Surgical History: Procedure Laterality Date ??? ANTERIOR CERVICAL DISCECTOMY W/ FUSION C6 - C8 ??? BACK SURGERY 2006 ??? KNEE SURGERY 2011 FOR TORN LIGAMENT ??? lumbar disectomy L5 - S1 ??? SHOULDER SURGERY 2010 Current Medications: Outpatient Medications as of 08/10/2019 Medication Sig Dispense Refill ??? albuterol (PROVENTIL HFA;VENTOLIN HFA) 108 (90 BASE) MCG/ACT inhaler Inhale 2 puffs into the lungs as needed. ??? albuterol HFA 108 (90 Base) MCG/ACT inhaler Inhale 2 puffs into the lungs. ??? allopurinol (ZYLOPRIM) 100 MG tablet TAKE 1 TABLET BY MOUTH EVERY DAY 0 ??? allopurinol (ZYLOPRIM) 300 MG tablet Take 300 mg by mouth. ??? DULERA 200-5 MCG/ACT AERO inhaler 2 PUFFS EVERY 12 HOURS RINSE MOUTH AFTER EACH USE 3 ??? fluticasone (FLONASE) 50 MCG/ACT nasal spray Instill 2 sprays into nose. ??? fluticasone (FLONASE) 50 MCG/ACT nasal spray SPRAY 2 SPRAYS INTO EACH NOSTRIL EVERY DAY 1 ??? lisinopril (PRINIVIL,ZESTRIL) 10 MG tablet Take 10 mg by mouth daily ??? lisinopril-hydrochlorothiazide (PRINZIDE,ZESTORETIC) 20-25 MG per tablet Take 1 tablet by mouthdaily. ??? lisinopril-hydroCHLOROthiazide (PRINZIDE,ZESTORETIC) 20-25 MG Take 1 tablet by mouth. ??? mometasone furo-formoterol (DULERA) 200-5 MCG/ACT AERO inhaler INHALE 2 PUFFS TWICE DAILY. RINSE MOUTH AFTER USE. ??? Mometasone Furo-Formoterol Fum (DULERA IN) Inhale into the lungs ??? montelukast (SINGULAIR) 10 MG tablet TAKE 1 TABLET BY MOUTH EVERYDAY AT BEDTIME 3 ??? oseltamivir (TAMIFLU) 75 MG capsule Take 1 capsule by mouth 2 (two) times daily for 5 days 10 capsule 0 ??? oseltamivir (TAMIFLU) 75 MG capsule Take 1 capsule (75 mg total) by mouth 2 (two) times daily. 10 capsule 0 ??? SPIRIVA RESPIMAT AERS USE 2 INHALATIONS ONCE DAILY 1 ??? tadalafil (CIALIS) 20 MG tablet Take 20 mg by mouth. ??? tadalafil (CIALIS) 20 MG tablet Take 1 tablet (20 mg total) by mouth daily as needed for Erectile Dysfunction. 10 tablet 0 ??? testosterone cypionate (DEPOTESTOTERONE CYPIONATE) 200 MG/ML injection INJECT O.5MG EVERY WEEK ??? testosterone cypionate (DEPOTESTOTERONE CYPIONATE) 200 MG/ML injection INJECT 0.5 ML INTO THE MUSCLE EVERY WEEK DIRECTED... NEEDS 18 G AND 22 G SYRINGES 5 ??? tiotropium bromide monohydrate (SPIRIVA RESPIMAT) AERS INHALE 2 PUFFS ONCE DAILY ??? traZODone (DESYREL) 100 MG tablet Take 100 mg by mouth. ??? traZODone (DESYREL) 100 MG tablet Take 1 tablet by mouth nightly 30 tablet 3 ??? traZODone (DESYREL) 100 MG tablet Take 0.5 tablets (50 mg total) by mouth nightly as needed forSleep. 30 tablet 0 Allergies: Allergies as of 08/10/2019 Review status set to Review Complete by Radha Manning LPN at 7:11 AM No Known Allergies Family Medical History: Family History Problem Relation Age of Onset ??? Other Mother pneumonia ??? Cancer, Other or Unknown Type Father prostate Social History: Social History Tobacco Use ??? Smoking status: Never Smoker ??? Smokeless tobacco: Never Used Substance Use Topics ??? Alcohol use: Yes Comment: OCCASIONAL ??? Drug use: No Review of Symptoms: Review of Systems Constitutional: Negative for chills, fever and malaise/fatigue. HENT: Positive for congestion. Negative for sore throat. Respiratory: Positive for cough, shortness of breath and wheezing. Cardiovascular: Positive for chest pain. Gastrointestinal: Negative for abdominal pain, nausea and vomiting. Musculoskeletal: Negative for myalgias. Neurological: Negative for weakness and headaches. Physical Exam: BP (!) 146/89 Pulse (!) 104 Temp 99 ??F (37.2 ??C) Resp (!) 22 Wt 196 lb (88.9 kg) SpO2 98% BMI 28.94 kg/m?? Physical Exam Constitutional: He is oriented to person, place, and time. He appears well- developed and well-nourished. He does not appear ill. No distress. HENT: Head: Normocephalic and atraumatic. Right Ear: Tympanic membrane normal. Left Ear: Tympanic membrane normal. Nose: Mucosal edema present. Mouth/Throat: Uvula is midline, oropharynx is clear and moist and mucous membranes are normal. Eyes: Pupils are equal, round, and reactive to light. Neck: Normal range of motion. Neck supple. Cardiovascular: Normal rate, regular rhythm and normal heart sounds. No murmur heard. Pulmonary/Chest: Effort normal and breath sounds normal. Scattered wheezes throughout lung crowley with bronchospastic cough present on deep inspiration Neurological: He is alert and oriented to person, place, and time. GCS eye subscore is 4. GCS verbal subscore is 5. GCS motor subscore is 6. Skin: Skin is warm, dry and intact. Psychiatric: He has a normal mood and affect. His speech is normal and behavior is normal. Cognition and memory are normal. Plan: wheezing on exam, breathing tx ordered but did not clear after first treatment, cleared [id number]. Discussed use of rescue inhaler for wheezing and steroids, he states understanding. RT to ICC or to ER instructions given. Tachycardic at discharge, likely secondary to albuterol. He has been instructed to rest and drink plenty of fluids. Well appearing, no distress. Feeling much better. XR not available, however pt CTAB after tx so it was cancelled. Assessment/Plan: Diagnoses and orders/medications from this encounter 1. Exacerbation of asthma, unspecified asthma severity, unspecified whether persistent CANCELED: XRChest 2Vw 2. Bronchitis CANCELED: XR Chest 2Vw Encounter Medications Signed Prescriptions Disp Refills ??? methylPREDNISolone (MEDROL DOSPACK) 4 MG tablet 21 tablet 0 Sig: Use as directed on package. Results this visit (if any) No results found for this visit on 08/10/19. Follow-up (if any) Return in about 2 days (around 08/12/2019), or if symptoms worsen or fail to improve, for recheck. Medical Decision Making documented in this encounter Plan of Treatment Upcoming Encounters Date Type Department Care Team (Late st Contact Info) Description 01/24/2025 1:40 PM EDT Office Visit [facility] [place] [address] [facility] [address] [place] [address] Damien Cárdenas APRN [address] [place] [address] documented as of this encounter Visit Diagnoses Diagnosis Exacerbation of asthma, unspecified asthma severity, unspecified whether persistent- Primary Bronchitis Bronchitis, not specified as acute or chronic documented in this encounter Administered Medications Inactive Administered Medications - up to 3 most recent administrations Medication Order MAR Action Action Date Dose Rate Site albuterol (PROVENTIL) nebulizer solution 2.5 mg 2.5 mg, Nebulization, Once, On Tue08/10/19 at 0800, For 1 dose, 3 mL, Routine Given 08/10/2019 8:18 AM EST 2.5 mg albuterol-ipratropium (DUO-NEB) 0.5-2.5 mg/3 mL nebulizer 3 mL 3 mL, Nebulization, Once, On Tue08/10/19 at 0730, For 1 dose, 3 mL, Routine Given 08/10/2019 7:33 AM EST 3 mLs methylPREDNISolone sodium succinate (SOLU-Medrol) injection 125 mg 125 mg, Intramuscular, Once, On Tue08/10/19 at 0800, For 1 dose, 2 mL, Routine Given 08/10/2019 8:18 AM EST 125 mg Right Ventrogluteal documented in this encounter Care Teams Marketing Development Representative Relationship Specialty Start Date End Date None, Physician PCP - General 11/14/17 01/13/20 documented as of this encounter
--- OUTSIDE RECORDS SUMMARY | 2024-10-10 22:53 | XMS_ITS | Encounter Summary ---
Author Organization [facility] Address [address] [place] [address] Care Team Providers Care Label Fuser Tender Name Role Phone None, Physician Primary Care Provider Unavailabl e Encounter Details Date Type Department Care Team (Late Contact Info) Description 09/16/2018 11:00 AM EST Imaging/Diagnost ic [address] [place] [address] Ruthann Suarez, [address] [facility] [address] [facility] Admin [place], [place] [id number] Social History Tobacco Use Types Packs/Day Years [...] Description 01/24/2025 1:40 PM EDT Office Visit [facility] - [address] [place] [address] Damien Cárdenas, MASTER BARBER [address] [place] [address] documented as of this encounter Procedures Procedure Name Priority Date/Time Associated Diagnosis Comments XR FOOT COMP MIN 3 VWS RT Routine 09/16/2018 11:07 AM EST Foot pain, right documented in this encounter Results * XR Foot Comp Min 3 Vws RT (09/16/2018 11:07 AM EST) Anatomical Region Laterality Modality Foot [facility] Radiographic Imaging 09/16/2018 11:1 6 AM EST Narrative 09/16/2018 11:18 AM EST RADIOLOGY REPORT FACILITY: ??[facility] UNIT/AGE/GENDER: P.ICCD ??OP ?AGE:58 Y ?SEX:M PATIENT NAME/: ??YOVANNY MALIN ?1960 UNIT NUMBER: ??[id number] ACCESSION NUMBER: ??[id number] EXAMINATION: RIGHT FOOT, 3 VIEWS. DATE OF EXAM(S): 09/16/2018 at 1100 hours. CLINICAL HISTORY: Pain and swelling of right great toe. FINDINGS: Severe osteoarthritis affects the first metatarsophalangeal joint with spurring and joint space narrowing. Mild soft tissue swelling is noted medially. Flatfoot deformity is noted. Small plantar calcaneal spur is seen at the fascial attachment. 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 Dictated by: Uri Garvin M.D. Images and Report reviewed and interpreted by: Uri Garvin M.D. <PS><Electronically signed by: Uri Garvin M.D.> 09/16/2018 1117 [id number] Procedure Note Uri Garvin MD - 09/16/2018 RADIOLOGY REPORT FACILITY: [facility] UNIT/AGE/GENDER: P.ICCD OP AGE:58 Y SEX:M PATIENT NAME/: YOVANNY MALIN 1960 UNIT NUMBER: [id number] ACCESSION NUMBER: [id number] EXAMINATION: RIGHT FOOT, 3 VIEWS. DATE OF EXAM(S): 09/16/2018 at 1100 hours. CLINICAL HISTORY: Pain and swelling of right great toe. FINDINGS: Severe osteoarthritis affects the first metatarsophalangealjoint with spurring and joint space narrowing. Mild soft tissue swellingis noted medially. Flatfoot deformity is noted. Small plantar calcanealspur is seen at the fascial attachment. 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 Dictated by: Uri Garvin M.D. Images and Report reviewed and interpreted by: Uri Garvin M.D. <PS><Electronically signed by: Uri Garvin M.D.> 09/16/2018 1117 [id number] us Ruthann Suarez DO IMG DIAGNOSTIC IMAGING ORD ERABLES Final Result documented in this encounter Visit Diagnoses Not on filedocumented in this encounter Care Teams Label Fuser Tender Relationship Specialty Start Date End Date None, Physician PCP - General 11/14/17 01/13/20 documented as of this encounter
--- OUTSIDE RECORDS SUMMARY | 2024-10-10 22:53 | XMS_ITS | Encounter Summary ---
Author Organization [facility] Address [address] [place] [address] Care Team Providers Care Pocket Assembler Name Role Phone None, Physician Primary Care Provider Unavailabl e Reason for Visit * Reason Comments Foot Pain rt, swelling x3 week s, medial portion Encounter Details Date Type Department Care Team (Late st Contact Info) Description 09/16/2018 9:30 AM EST Office Visit [address] [place] [address] Ruthann Suarez, DO [address] [facility] [address] [facility] [place] [address] Foot pain, right (Primary Dx); Gout, unspecified cause, unspecified chronicity, unspecified site Social History Tobacco Use Types Packs/Day Years [...] Sign Reading Time Taken Comments Blood Pressure 133/69 09/16/2018 10:26 AM EST Pulse 87 09/16/2018 10:26 AM EST Temperature 37 ??C (98.6 ??F) 09/16/2018 10: 26 AM EST Respiratory Rate 20 09/16/2018 10:2 6 AM EST Oxygen Saturation 97% 09/16/2018 10: 26 AM EST Inhaled Oxygen Concentration - - Weight 92.4 kg (203 lb 11.3 oz) 12/29/2 018 10:26 AM EST Height - - Body Mass Index 30.08 11/20/2014 6:52 PM EST documented in this encounter Functional Status * Patient's Vision Adequate to Safely Complete Daily Activities Answer Date of Assessment Author Yes 02/16/2013 1:00 PM EDT Delmer Ceja RN documented as of this encounter Patient Instructions * Patient Instructions* Ruthann Suarez, DO - 09/16/2018 11:37 AM EST Suspected Gout WHAT YOU NEED TO KNOW: Gout is a form of arthritis that causes severe joint pain, redness, swelling, and stiffness. Acute gout pain starts suddenly, gets worse quickly, and stops on its own. Acute gout can become chronic and cause permanent damage to the joints. DISCHARGE INSTRUCTIONS: Return to the emergency department if: ?? You have severe pain in one or more of your joints that you cannot tolerate. ?? You have a fever or redness that spreads beyond the joint area. Contact your healthcare provider if: ?? You have new symptoms, such as a rash, after you start gout treatment. ?? Your joint pain and swelling do not go away, even after treatment. ?? You are not urinating as much or as often as you usually do. ?? You have trouble taking your gout medicines. ?? You have questions or concerns about your condition or care. Medicines: You may need any of the following: ?? Prescription pain medicine may be given. Ask your healthcare provider how to take this medicine safely. Some prescription pain medicines contain acetaminophen. Do not take other medicines that contain acetaminophen without talking to your healthcare provider. Too much acetaminophen may cause liver damage. Prescription pain medicine may cause constipation. Ask your healthcare provider how to prevent or treat constipation. ?? NSAIDs , such as ibuprofen, help decrease swelling, pain, and fever. This medicine is available with or without a doctor's order. NSAIDs can cause stomach bleeding or kidney problems in certain people. If you take blood thinner medicine, always ask your healthcare provider if NSAIDs are safe foryou. Always read the medicine label and follow directions. ?? Gout medicine decreases joint pain and swelling. It may also be given to prevent new gout attacks. ?? Steroids reduce inflammation and can help your joint stiffness and pain during gout attacks. ?? Uric acid medicine may be given to reduce the amount of uric acid your body makes. Some medicines may help you pass more uric acid when you urinate. ?? Take your medicine as directed. Contact your healthcare provider if you think your medicine is not helping or if you have side effects. Tell him or her if you are allergic to any medicine. Keep a list of the medicines, vitamins, and herbs you take. Include the amounts, and when and why you take them. Bring the list or the pill bottles to follow-up visits. Carry your medicine list with you in case of an emergency. Follow up with your healthcare provider as directed: Write down your questions so you remember to ask them during your visits. Manage gout: ?? Rest your painful joint so it can heal. Your healthcare provider may recommend crutches or a walker if the affected joint is in a leg. ?? Apply ice to your joint. Ice decreases pain and swelling. Use an ice pack, or put crushed ice sirena plastic bag. Cover the ice pack or bag with a towel before you apply it to your painful joint. Apply ice for 15 to 20 minutes every hour, or as directed. ?? Elevate your joint. Elevation helps reduce swelling and pain. Raise your joint above the level of your heart as often as you can. Prop your painful joint on pillows to keep it above your heart comfortably. ?? Go to physical therapy if directed. A physical therapist can teach you exercises to improve flexibility and range of motion. Prevent gout attacks: ?? Do not eat high-purine foods. These foods include meats, seafood, asparagus, spinach, cauliflower, and some types of beans. Healthcare providers may tell you to eat more low-fat milk products, such as yogurt. Milk products may decrease your risk for gout attacks. Vitamin C and coffee may also help. Your healthcare provider or dietitian can help you create a meal plan. Avoid beer. ?? Drink more liquids as directed. Liquids such as water help remove uric acid from your body. Ask how much liquid to drink each day and which liquids are best for you. ?? Manage your weight. Weight loss may decrease the amount of uric acid in your body. Exercise can help you lose weight. Talk to your healthcare provider about the best exercises for you. ?? Control your blood sugar level if you have diabetes. Keep your blood sugar level in a normal range. This can help prevent gout attacks. ?? Limit or do not drink alcohol as directed. Alcohol can trigger a gout attack. Alcohol also increases your risk for dehydration. Ask your healthcare provider if alcohol is safe for you. ?? Copyright [employer] 2018 Information is for End User's use only and may not be sold, redistributed or otherwise used for commercial purposes. All illustrations and images included in CareNotes?? are the copyrighted property of [employer]. or [employer] The above information is an day care aide only. It is not intended as medical advice for individual conditions or treatments. Talk to your doctor, nurse or pharmacist before following any medical regimen to see if it is safe and effective for you. documented in this encounter Progress Notes * Ruthann Suarez DO - 09/16/2018 10:58 AM EST Images from the original note were not included. Patient Identification: Name: Yovanny Malin Age: 58 yr/o Gender: male : 1960 PCP: None, Physician Chief Complaint: Yovanny Malin is presenting today for Foot Pain (rt, swelling x3 weeks, medial portion ) . History of Present Illness: Patient denies hx of known gout. No trauma. Pain and swelling comes and goes. He says he does drink1-2 beers every day after work. Toe Pain The incident occurred more than 2 days ago. The incident occurred at home. There was no injury mechanism. Pain is located in the right great toe. Characteristics of the affected site include swellingand warm to touch. The quality of the pain is described as aching and throbbing. The pain is moderate. The pain has been constant since onset. Associated symptoms include inability to bear weight and loss of motion. He reports no foreign bodies present. He has tried nothing for the symptoms. History, Medications, Allergies, and Review of Symptoms: [...] 2010 Current Medications: Outpatient Medications as of 09/16/2018 Medication Sig Dispense Refill ??? albuterol (PROVENTIL [...] 30 tablet 0 Allergies: Allergies as of 09/16/2018 Review Complete On: 09/16/2018 By: Ruthann Suarez, DO No Known Allergies Family Medical History: Family [...] Constitutional: Negative for chills, fever and malaise/fatigue. Respiratory: Negative for cough. Cardiovascular: Negative for chest pain. Gastrointestinal: Negative for abdominal pain, nausea and vomiting. Musculoskeletal: Positive for joint pain. Negative for falls and myalgias. Skin: Negative for itching and rash. Physical Exam: BP 133/69 Pulse 87 Temp 98.6 ??F (37 ??C) (Oral) Resp 20 Wt 203 lb 11.3 oz (92.4 kg) DlO361% BMI 30.08 kg/m?? Physical Exam Constitutional: He is oriented to person, place, and time. He appears well- developed and well-nourished. No distress. HENT: Head: Normocephalic and atraumatic. Pulmonary/Chest: Effort normal. No respiratory distress. Neurological: He is alert and oriented to person, place, and time. Skin: He is not diaphoretic. There is erythema. TTP over right great toe at the PR joint Nursing note and vitals reviewed. Assessment/Plan: Diagnoses and orders/medications from this encounter 1. Foot pain, right XR Foot Comp Min 3 Vws RT 2. Gout, unspecified cause, unspecified chronicity, unspecified site Encounter Medications Signed Prescriptions Disp Refills ??? predniSONE (DELTASONE) 20 MG tablet 13 tablet 0 Sig: Take 1 tablet by mouth 2 (two) times daily for 5 days, THEN 1 tablet daily for 2 days, THEN 0.5 tablets daily for 2 days. Results this visit (if any) No results found for this visit on 09/16/18. Follow-up (if any) Return if symptoms worsen or fail to improve. Medical Decision Making There is high clinical suspicion for an acute gout flare in this patient. X ray read at OA but could be a component of both. Follow up with PCP for further testing. Avoid cheese (which patient eats alot of and beer). Steroid taper documented in this encounter Plan of Treatment Upcoming Encounters Date Type Department Care Team (Late st Contact Info) Description 01/24/2025 1:40 PM EDT Office Visit [facility] - [address] [place] [address] Damien Cárdenas, TANG [address] [place] [address] documented as of this encounter Procedures Procedure Name Priority Date/Time Associated Diagnosis Comments XR FOOT COMP MIN 3 VWS RT Routine 09/16/2018 11:07 AM EST Foot pain, right documented in this encounter Results * XR Foot Comp Min 3 Vws RT (09/16/2018 11:07 AM EST) Anatomical Region Laterality Modality Foot [facility] Radiographic Imaging 09/16/2018 11:1 6 AM EST Narrative 09/16/2018 11:18 AM EST RADIOLOGY REPORT FACILITY: ??[facility] UNIT/AGE/GENDER: P.ICCD ??OP ?AGE:58 Y ?SEX:M PATIENT NAME/: ??YOVANNY MALIN ?1960 UNIT NUMBER: ??[id number] ACCESSION NUMBER: ??[id number] EXAMINATION: RIGHT FOOT, 3 VIEWS. DATE OF [...] Garvin MD - 09/16/2018 RADIOLOGY REPORT FACILITY: [facility] UNIT/AGE/GENDER: P.ICCD OP AGE:58 Y SEX:M PATIENT NAME/: YOVANNY MALIN 1960 UNIT NUMBER: [id number] ACCESSION NUMBER: [id number] EXAMINATION: RIGHT FOOT, 3 VIEWS. DATE OF [...] Uri Garvin M.D.> 09/16/2018 1117 [id number] Ruthann Suarez DO IMG DIAGNOSTIC IMAGING ORD ERABLES Final Result documented in this encounter Visit Diagnoses Diagnosis Foot pain, right- Primary Pain in soft tissues of limb Gout, unspecified cause, unspecified chronicity, unspecified site documented in this encounter Care Teams Pocket Assembler Relationship Specialty Start Date End Date None, Physician PCP - General 11/14/17 01/13/20 documented as of this encounter
--- OUTSIDE RECORDS SUMMARY | 2024-10-10 22:53 | XMS_ITS | Encounter Summary ---
Author Organization [facility] Address [place] [address] Care Team Providers Care Behavior Therapist Name Role Phone System, Provider Not In Primary Care Provider Un available Reason for Visit * Reason Comments Nausea/Vomiting/Diarrhea since tuesday Encounter Details Date Type Department Care Team (Latest Contact Info) Description 11/20/2014 6:30 PM EST Office Visit [facility] - [address] [address] Peyman Valdivia MD [address] [place] [address] Viral gastroenteritis (Primary Dx) Social History Tobacco Use Types [...] Sign Reading Time Taken Comments Blood Pressure 120/76 11/20/2014 6:52 PM EST Pulse 93 11/20/2014 6:52 PM EST Temperature 36.7 ??C (98 ??F) 11/20/2014 6:52 PM EST Respiratory Rate 20 11/20/2014 6:52 PM EST Oxygen Saturation 95% 11/20/2014 6:52 PM EST Inhaled Oxygen Concentration - - Weight 99.8 kg (220 lb) 11/20/2014 6:52 PM EST Height 175.3 cm (5' 9 ) 11/20/2014 6:52 PM EST Body Mass Index 32.49 11/20/2014 6:52 PM EST documented in this encounter Functional Status * Patient's Vision Adequate to Safely Complete Daily Activities Answer Date of Assessment Author Yes 02/16/2013 1:00 PM WANDERT Delmer Ceja RN documented as of this encounter Patient Instructions * Patient Instructions* Peyman Valdivia MD - 11/20/2014 7:06 PM EST Images from the original note were not included. Gastroenteritis WHAT YOU SHOULD KNOW: Gastroenteritis, or stomach flu, is an infection of the stomach and intestines. AFTER YOU LEAVE: Medicines: ?? Diarrhea medicine: This can help slow or stop your diarrhea. ?? Vomiting medicine: This can help settle your stomach and stop vomiting. ?? Antibiotics: These help fight infection caused by bacteria. ?? Parasite medicine: This helps fight infection caused by parasites. ?? Take your medicine as directed. Call [...] to ask them during your visits. Manage your symptoms: ?? Drink liquids: It is important to prevent or treat dehydration. Even if you feel sick or have been vomiting, suck on ice chips or take small sips of clear liquids often. Slowly increase the amountof clear liquids you drink. If you become dehydrated, you may need IV liquids. ?? Drink oral rehydration solution: You may also need to drink an oral rehydration solution (ORS). An ORS contains water, salts, and sugar that are needed to replace lost body fluids. Ask what kind of ORS to use, how much to drink, and where to get it. ?? Eat bland foods: When you feel hungry, begin eating soft, bland foods. Examples are bananas, clear soup, potatoes, and applesauce. Do not have dairy products, alcohol, sugary drinks, or drinks with caffeine until you feel better. ?? Rest as much as possible: Slowly start to do more each day when you begin to feel better. Prevent the spread of gastroenteritis: ?? Wash hands, laundry, and surfaces: This will help prevent the spread of germs. Encourage everyone in your house to wash their hands with soap and water after they use the bathroom. Wash clothes and towels you use while you are ill separately from the rest of your laundry. Clean surfaces in your home with antibacterial rope cleaner or bleach. ?? Cook safely: Wash your hands and raw vegetables before you cook. Have your household members wash their hands before they eat. Cook meat, fish, and eggs fully. Do not use the same dishes for raw meat as you do for other foods. Refrigerate any leftover food immediately. ?? Be aware when you camp or travel: Drink only clean water. Do not drink from sexton or lakes unless you purify or boil the water first. When you travel, drink bottled water and avoid ice. Do not eat fruit that has not been peeled. Avoid raw fish or meat that is not fully cooked. Contact your primary healthcare provider if: ?? You have a fever. ?? You continue to vomit or have diarrhea, even after treatment. ?? You see worms in your diarrhea. ?? Your mouth or eyes are dry. You are not urinating as much or as often. ?? You have questions or concerns about your condition or care. Seek care immediately or call 911 if: ?? You see blood in your diarrhea. ?? You cannot stop vomiting. ?? You have not urinated for 12 hours. ?? Your legs or arms are blue. ?? You have trouble breathing or a very fast pulse. ?? You feel like you are going to faint. ?? 2014 [employer]. Information is for End User's use only and may not be sold, redistributed or otherwise used for commercial purposes. All illustrations and images included in CareNotes?? are the copyrighted property of [employer] or [employer]. The above information is an parlor maid only. It is not intended as medical advice for individual conditions or treatments. Talk to your doctor, nurse or pharmacist before following any medical regimen to see if it is safe and effective for you. documented in this encounter Progress Notes * Peyman Valdivia MD - 11/20/2014 7:02 PM EST Images from the original note were not included. Patient Identification: Name: Yovanny Steve Age: 54 yr/o Gender: male : 1960 PCP: Provider Not In System Chief Complaint: Yovanny Steve is presenting today for Nausea/Vomiting/Diarrhea . History of Present Illness: The primary symptoms include abdominal pain, nausea, vomiting, diarrhea and distention. Primary symptoms do not include fever, melena, myalgias, rash or heartburn. The illness began 3 to 5 days ago. This is a new problem. The illness does not include chills. History, Medications, Allergies, and Review of Symptoms: [...] S1 Current Medications: Outpatient Prescriptions as of 11/20/2014 Medication Sig Dispense Refill ??? lisinopril (PRINIVIL,ZESTRIL) 10 MG tablet Take 10 mg by mouth daily ??? Mometasone Furo-Formoterol Fum (DULERA IN) Inhale into the lungs ??? traZODone (DESYREL) 100 MG tablet Take [...] tablet by mouthdaily. Allergies: Allergies as of 11/20/2014 Review Complete On: 11/20/2014 By: Peyman Valdivia MD No Known Allergies Family Medical History: Family History Problem Relation Age of Onset ??? Other Mother pneumonia ??? Cancer, Other or Unknown Type Father prostate Social History: History Substance Use Topics ??? Smoking status: Never Smoker ??? Smokeless tobacco: Never Used ??? Alcohol Use: Yes Comment: OCCASIONAL Review of Symptoms: Review of Systems Constitutional: Negative for fever, chills, malaise/fatigue and diaphoresis. HENT: Negative for tinnitus. Eyes: Negative for blurred vision and double vision. Respiratory: Negative for cough, shortness of breath and wheezing. Cardiovascular: Negative for palpitations. Gastrointestinal: Positive for nausea, vomiting, abdominal pain and diarrhea. Negative for heartburn, blood in stool and melena. Musculoskeletal: Negative for myalgias. Skin: Negative for rash. Neurological: Negative for dizziness, focal weakness, weakness and headaches. Psychiatric/Behavioral: Negative for substance abuse. The patient is not nervous/anxious. Physical Exam: BP 120/76 Pulse 93 Temp(Src) 98 ??F (36.7 ??C) (Oral) Resp 20 Ht 5' 9 (1.753 m) Wt 220 lb (99.791 kg) BMI 32.47 kg/m2 SpO2 95% Physical Exam Constitutional: He is oriented to person, place, and time. He appears well- developed and well-nourished. HENT: Head: Normocephalic and atraumatic. Eyes: Conjunctivae are normal. Pupils are equal, round, and reactive to light. No scleral icterus. Cardiovascular: Normal rate and regular rhythm. Pulmonary/Chest: Effort normal and breath sounds normal. Abdominal: Soft. He exhibits distension. There is no tenderness. Neurological: He is alert and oriented to person, place, and time. Skin: Skin is warm and dry. Psychiatric: He has a normal mood and affect. His behavior is normal. Nursing note and vitals reviewed. Assessment/Plan: Diagnoses and orders/medications from this encounter 1. Viral gastroenteritis ondansetron (ZOFRAN) 4 MG tablet Encounter Medications Signed Prescriptions Disp Refills ??? ondansetron (ZOFRAN) 4 MG tablet 30 tablet 0 Sig: Take 1 tablet by mouth every 8 (eight) hours as needed for Nausea for up to 5 days Results this visit (if any) No results found for this visit on 11/20/14. Follow-up (if any) No Follow-up on file. Patient Instructions Gastroenteritis WHAT YOU SHOULD KNOW: Gastroenteritis, or stomach flu, is an infection of the stomach and intestines. AFTER YOU LEAVE: Medicines: ?? Diarrhea medicine: This can help slow or stop your diarrhea. ?? Vomiting medicine: This can help settle your stomach and stop vomiting. ?? Antibiotics: These help fight infection caused by bacteria. ?? Parasite medicine: This helps fight infection caused by parasites. ?? Take your medicine as directed. Call [...] to ask them during your visits. Manage your symptoms: ?? Drink liquids: It is important to prevent or treat dehydration. Even if you feel sick or have been vomiting, suck on ice chips or take small sips of clear liquids often. Slowly increase the amountof clear liquids you drink. If you become dehydrated, you may need IV liquids. ?? Drink oral rehydration solution: You may also need to drink an oral rehydration solution (ORS). An ORS contains water, salts, and sugar that are needed to replace lost body fluids. Ask what kind of ORS to use, how much to drink, and where to get it. ?? Eat bland foods: When you feel hungry, begin eating soft, bland foods. Examples are bananas, clear soup, potatoes, and applesauce. Do not have dairy products, alcohol, sugary drinks, or drinks with caffeine until you feel better. ?? Rest as much as possible: Slowly start to do more each day when you begin to feel better. Prevent the spread of gastroenteritis: ?? Wash hands, laundry, and surfaces: This will help prevent the spread of germs. Encourage everyone in your house to wash their hands with soap and water after they use the bathroom. Wash clothes and towels you use while you are ill separately from the rest of your laundry. Clean surfaces in your home with antibacterial rope cleaner or bleach. ?? Cook safely: Wash your hands and raw vegetables before you cook. Have your household members wash their hands before they eat. Cook meat, fish, and eggs fully. Do not use the same dishes for raw meat as you do for other foods. Refrigerate any leftover food immediately. ?? Be aware when you camp or travel: Drink only clean water. Do not drink from se[place] or lakes unless you purify or boil the water first. When you travel, drink bottled water and avoid ice. Do not eat fruit that has not been peeled. Avoid raw fish or meat that is not fully cooked. Contact your primary healthcare provider if: ?? You have a fever. ?? You continue to vomit or have diarrhea, even after treatment. ?? You see worms in your diarrhea. ?? Your mouth or eyes are dry. You are not urinating as much or as often. ?? You have questions or concerns about your condition or care. Seek care immediately or call 911 if: ?? You see blood in your diarrhea. ?? You cannot stop vomiting. ?? You have not urinated for 12 hours. ?? Your legs or arms are blue. ?? You have trouble breathing or a very fast pulse. ?? You feel like you are going to faint. ?? 2014 [employer]. Information is for End User's use only and may not be sold, redistributed or otherwise used for commercial purposes. All illustrations and images included in CareNotes?? are the copyrighted property of [employer] or [employer]. The above information is an parlor maid only. It is not intended as medical advice for individual conditions or treatments. Talk to your doctor, nurse or pharmacist before following any medical regimen to see if it is safe and effective for you. documented in this encounter Plan of Treatment Upcoming Encounters Date Type Department Care Team (Late st Contact Info) Description 01/24/2025 1:40 PM EDT Office Visit [facility] - [address] [place] [address] Damien Cárdenas, [employer] [address] [place] [address] documented as of this encounter Visit Diagnoses Diagnosis Viral gastroenteritis- Primary Intestinal infection due to other organism, NEC documented in this encounter Care Teams Behavior Therapist Relationship Specialty Start Date End Date System, Provider Not In PCP - General 11/17/14 11/13/17 documented as of this encounter
--- OUTSIDE RECORDS SUMMARY | 2024-10-10 22:53 | XMS_ITS | Encounter Summary ---
Author Organization [facility] Address [address] [place] [place] [address] Care Team Providers Care Material Spreader Name Role Phone None, Physician Primary Care Provider Unavailabl e Reason for Visit * Reason Comments Knee Pain LEFT PAIN X 1 MO OFF AND ON Encounter Details Date Type Department Care Team (Late st Contact Info) Description 05/24/2012 3:45 PM EDT Office Visit [facility] - [address] [place] [address] Paty Sauceda, AIR CONDITIONING SUPERVISOR [address] [facility] [address] [place] [address] Left knee pain (Primary Dx); Arthritis Social History Tobacco Use Types Packs/Day Years Used Date Smoking Tobacco: Never Assessed Sex and Gender Information Value Date Recorded Sex Assigned at Not on file Legal Sex Male 4:52 PM EST Gender Identity Not on file Sexual Orientation Not on file documented as of this encounter Last Filed Vital Signs Vital Sign Reading Time Taken Comments Blood Pressure 149/95 05/24/2012 4:09 PM EDT Pulse 72 05/24/2012 4:09 PM EDT Temperature 36.8 ??C (98.2 ??F) 05/24/2012 4:09 PM ED T Respiratory Rate 16 05/24/2012 4:09 PM EDT Oxygen Saturation 100% 05/24/2012 4:09 PM EDT Inhaled Oxygen Concentration - - Weight 89.8 kg (198 lb) 05/24/2012 4:09 PM EDT Height 172.7 cm (5' 8 ) 05/24/2012 4:09 PM EDT Body Mass Index 30.11 05/24/2012 4:09 PM EDT documented in this encounter Patient Instructions * Patient Instructions* Paty Sauceda - 05/24/2012 4:25 PM EDT Images from the original note were not included. STOP TAKING THE IBUPROFEN. START ON THE DICLOFENAC. DO NOT TAKE ANY OTC NSAIDS: IBUPROFEN, NAPROXENOR ALIEVE WHILE TAKING THIS MEDICATION DOING SO PUTS YOURSELF AT RISK FOR BLEEDING. ICE AND ELEVATED AFFECTED AREA 10-15 MIN 3-4 TIMES A DAY. WEAR BRACE FOR COMFORT. HEAT MAY ALSO BEOF SOME BENEFIT. Osteoarthritis WHAT YOU SHOULD KNOW: ?? Osteoarthritis is also called arthritis or degenerative joint disease. It is a life-long condition that usually affects weight bearing joints. This includes the joints in your hands, feet, knee, hip, and spine (back and neck). Normally, there is cartilage covering the bone ends in each joint. Cartilage is a tissue that cushions the joint when it moves. In osteoarthritis, the cartilage slowly wears away, causing the bones to rub against each other. This results in joint pain, swelling, or stiffness. Sometimes, a bone spur (a pointed growth) may also grow in the joint and cause similar symptoms. Aging, a bone or joint injury, or overuse of joints may increase your risk of having osteoarthritis. Joint x-rays or an MRI may be done to diagnose osteoarthritis. Treatment aims to decrease pain, increase strength, and improve movement. AFTER YOU LEAVE: Medicines: ?? Keep a list of your medicines: Keep a written list of the medicines you take, the amounts, and when and why you take them. Bring the list of your medicines or the pill bottles when you see your caregivers. Do not take any medicines, tcoz-iuu-texqymo drugs, vitamins, herbs, or food supplements without first talking to caregivers. ?? Take your medicine as directed: Always take your medicine as directed by caregivers. Call your caregiver if you think your medicines are not helping or if you feel you are having side effects. Do not quit taking your medicines until you discuss it with your caregiver. ?? Pain medicine: Ask your caregiver if you may use aspirin, acetaminophen, or ibuprofen for pain. These may be bought as jedu-fzm-nxmstmb medicine at grocery stores and drug stores. Do not take ibuprofen if you are allergic to aspirin, have ulcers, or kidney disease. Ask your caregiver when to return for a follow-up visit. Keep all appointments. Write down any questions you may have. This way you will remember to ask these questions during your next visit. Activity: ?? Rest is important if your joints are very painful. Limit your activities until your symptoms improve. ?? Gradually restart your normal activities when you can do them without pain. Avoid motions and activities that cause strain on your joints, such as heavy exercise and lifting. When picking things up, bend at the hips and knees. Never bend from the waist only. Do not twist your back while lifting. ?? You may need to use crutches, a cane, or a walker if you are weak or unsteady when walking. Thismay help you get around and decrease your chances of falling or being hurt. Using one of these devices also helps decrease stress and strain on the affected joint. Ask your caregiver for more information about how to choose and use crutches, a cane, or a walker. ?? Wear low-heeled shoes to decrease the pain of arthritic toes and feet. Low- heeled shoes decreasestrain on the ankle, knee, and hip joint. ?? After your symptoms are improved, ask your caregiver for muscle strengthening exercises that help support the affected joints. Walking and swimming are good exercises. ?? If you are overweight, it is important to lose weight. This helps decrease the strain on the joints in your back, hips, knees, ankles, and feet. Talk to your caregiver about a weight loss diet. ?? The following may help you sleep better if your back has osteoarthritis: ?? Sleep on a firm mattress or have a 1/2 to 1 inch thick piece of plywood put between the mattressand box springs. ?? Sleeping on a waterbed is helpful for some people. ?? Sleep on your back with a pillow under your knees to decrease tension on your back. You may alsosleep on your side with one or both knees bent with pillows between your legs. Self-care: ?? Use a heating pad (turned on low) to decrease joint pain and swelling. Heat brings blood to the sore area to relax the muscles. Sitting in a warm water bath will also help your joints. Do this for15 to 20 minutes every hour as long as you need it. Do not sleep on the heating pad as it can causea bad burn. ?? Massaging the muscles around the joint may relieve pain and stiffness. ?? Cold temperatures may cause more pain in the affected joint. You may want to wear thermal underwear or avoid outdoor activity in cold weather. For support and more information: Osteoarthritis may be a life-changing disease for you and your family. Accepting that you have osteoarthritis may be hard. You may want to join a support group whichis a group of people who also have ostearthritis. Contact the following for more information: ?? [employer] [address] [place] [address] Phone: Web Address: http://www.aaos.org/ ?? [employer] [address] [place] [address] Phone: Phone: Web Address: http://www.arthritis.org ?? [employer] [place] [employer] Arth[employer] and Musculoskeletal and Skin Disease Information Clearinghouse [place] [facility] [address] [place] [address] Phone: Phone: Web Address: http://www.lovelace medical centerms.nih.gov CONTACT A CAREGIVER IF: ?? You have a fever (increased body temperature). ?? You have bone pain. ?? You have redness and tenderness of the affected joint. ?? Your skin is itchy, swollen, or has a rash. ?? You have questions or concerns about osteoarthritis, your medicine, or care. SEEK CARE IMMEDIATELY IF: ?? You have increased swelling, pain, or redness of your joint. ?? You have trouble breathing all of a sudden. Copyright ?? 2010. [employer]. All rights reserved. Information is for End User's use only andmay not be sold, redistributed or otherwise used for commercial purposes. The above information is an teaching aide only. It is not intended as medical advice for individual conditions or treatments. Talk to your doctor, nurse or pharmacist before following any medical regimen to see if it is safe and effective for you. documented in this encounter Progress Notes * Paty Sauceda - 05/24/2012 4:37 PM EDTAddended by: PATY SAUCEDA on: 05/24/2012 04:37 PM Modules accepted: Orders * Paty Sauceda - 05/24/2012 4:17 PM EDT Subjective: Patient ID: Yovanny Steve is a 51 yr/o male. Knee Pain Incident onset: OFF AND ON FOR 1 MONTH, PAIN WILL AWAKE PT. FROM NIGHT., FEELS LIKE IT JUST A LOT OF WEAR AND TEAR FROM WT LIFTING IN THE YOUNGER YEARS. There was no injury mechanism. The pain is present in the left knee. The quality of the pain is described as aching. The pain is moderate. Pertinent negatives include no inability to bear weight, loss of motion, loss of sensation, muscle weakness, numbness or tingling. Associated symptoms comments: WALKING W/ A LIMP BECAUSE OF THE PAIN. The symptoms are aggravated by movement, palpation and weight bearing. Treatments tried: IBUPROFEN 800 MG. The treatment provided mild relief. PAIN HAS BEEN WORSE THIS PAST WEEK. (THERE HAS BEEN A LOT OF RAIN THIS WEEK) The following portions of the patient's history were reviewed and updated as appropriate: allergies, current medications, past family history, past medical history, past social history, past surgicalhistory and problem list. Review of Systems Musculoskeletal: LT KNEE PAIN Neurological: Negative for tingling and numbness. All other systems reviewed and are negative. Objective: Physical Exam Constitutional: He is oriented to person, place, and time. He appears well- developed and well-nourished. HENT: Head: Normocephalic and atraumatic. Eyes: Conjunctivae and EOM are normal. Pupils are equal, round, and reactive to light. Pulmonary/Chest: Effort normal. No respiratory distress. Musculoskeletal: He exhibits tenderness. Left knee: He exhibits normal range of motion, no swelling, no effusion, no ecchymosis, no deformity, no laceration, no erythema, normal alignment, no LCL laxity, normal patellar mobility, no bony tenderness, normal meniscus and no MCL laxity. tenderness found. Medial joint line tenderness noted. No lateral joint line, no MCL, no LCL and no patellar tendon tenderness noted. Left ankle: Normal. Left foot: Normal. LT KNEE TTP POSTERIORLY, AROUND KNEE CAP AND THE MEDIAL ASPECT AT THE JOINT LINE. THERE IS NO SWELLING, ERYTHEMA OR WARMTH. POSITIVE CREPITATION. A POPPING SENSATION WAS PRODUCED Neurological: He is alert and oriented to person, place, and time. Skin: Skin is warm and dry. Psychiatric: He has a normal mood and affect. His behavior is normal. Judgment and thought content normal. Assessment and Plan: Yovanny was seen today for knee pain. Diagnoses and associated orders for this visit: Left knee pain Arthritis Other Orders - traZODone (DESYREL) 100 MG tablet; Take 100 mg by mouth nightly. documented in this encounter Plan of Treatment Upcoming Encounters Date Type Department Care Team (Late st Contact Info) Description 01/24/2025 1:40 PM EDT Office Visit [facility] - [address] [address] Damien Cárdenas, AIR CONDITIONING SUPERVISOR [address] [place] [address] documented as of this encounter Visit Diagnoses Diagnosis Left knee pain- Primary Pain in joint, lower leg Arthritis Unspecified arthropathy, site unspecified documented in this encounter Care Teams Material Spreader Relationship Specialty Start Date End Date None, Physician PCP - General 05/24/12 01/23/14 documented as of this encounter
--- OUTSIDE RECORDS SUMMARY | 2024-10-10 22:53 | XMS_ITS | Encounter Summary ---
Author Organization [facility] Address [address] [place] [address] Care Team Providers Care Biofuels Product Development Manager Name Role Phone Keanu Brooks DO Primary Care Provider [phone] Reason for Visit * Reason Comments Flu Vaccine Encounter Details Date Type Department Care Team (Latest Contact Info) Description 09/22/2020 10:45 AM EST Injection Visit [facility] [address] [place] [id number] Anna Pal, MASONRY INSTALLER [address] [address] Need for influenza vaccination (Primary Dx) Social History Tobacco Use Types [...] have Coronavirus / COVID-19? No / Unsure 09/22/2020 10:48 AM EST documented as of this encounter Last Filed Vital Signs Vital Sign Reading Time Taken Comments Blood Pressure - - Pulse - - Temperature 36.3 ??C (97.3 ??F) 09/22/2020 10:[address] Respiratory Rate - - Oxygen Saturation - - Inhaled Oxygen Concentration - - Weight - - Height - - Body Mass Index - - documented in this encounter Functional Status * Patient's Vision Adequate to Safely Complete Daily Activities Answer Date of Assessment Author Yes 02/16/2013 1:00 PM EDT Delmer Ceja RN documented as of this encounter Progress Notes * Anna Pal APRN - 09/22/2020 10:52 AM EST Chief Complaint Patient presents with ??? Flu Vaccine Educated patient on immunization. All questions answered. VIS provided. Advised that patient stay in clinic/store for 15 minutes post injection to monitor for a reaction. Patient was seen in the context of a global coronavirus pandemic. PPE worn during this visit include: surgical mask (both parties), eye protection, gloves. documented in this encounter Plan of Treatment Upcoming Encounters Date Type Department Care Team (Late st Contact Info) Description 01/24/2025 1:40 PM EDT Office Visit [facility] - [address] [place] [address] Damien Cárdenas APRN [address] [place] [address] documented as of this encounter Visit Diagnoses Diagnosis Need for influenza vaccination- Primary Need for prophylactic vaccination and inoculation against influenza documented in this encounter Care Teams Biofuels Product Development Manager Relationship Specialty Start Date End Date Keanu Brooks DO PCP - General Family Medicine 01/14/20 documented as of this encounter
--- OUTSIDE RECORDS SUMMARY | 2024-10-10 22:53 | XMS_ITS | Encounter Summary ---
Author Organization [facility] Address [address] [place] [address] Care Team Providers Care Health Analytics Consultant Name Role Phone None, Physician Primary Care Provider Unavailabl e Reason for Referral * (Routine) - Closed Specialty Diagnoses / Procedures Referred By Moshe denis Referred To Contact Procedures EKG 12 lead Bianca Chen APRN Phone: tel: fax: Referral ID Status Reason Start Date Expiration Date Visits Re quested Visits Authorized [id number] Closed 02/15/2013 03/18/2014 1 1 Reason for Visit * Auth/Cert - Closed Specialty Diagnoses / Procedures Referred By Moshe denis Referred To Contact Diagnoses CERIVCAL STENOSIS Procedures ANTERIOR CERVICAL FUSION W/INST Referral ID Status Reason Start Date Expiration Date Visits Re quested Visits Authorized [id number] Closed 1 1 Encounter Details Date Type Department Care Team (Latest Contact Info) Description 02/15/2013 10:17 AM EDT - 02/15/2013 11:56 AM EDT Hospital Encounter [facility] Pre Admission Testing [address] [place] [address] [place] [address] [place] [address] Discharge Disposition: Home or Self Care Social [...] Sign Reading Time Taken Comments Blood Pressure 138/89 02/15/2013 10:46 AM EDT Pulse 90 02/15/2013 10:46 AM EDT Temperature 37.1 ??C (98.8 ??F) 02/15/2013 1 0:46 AM EDT Respiratory Rate 16 02/15/2013 10:4 6 AM EDT Oxygen Saturation 100% 02/15/2013 10: 46 AM EDT Inhaled Oxygen Concentration - - Weight 89.3 kg (196 lb 14.4 oz) 013 10:46 AM EDT Height 172.7 cm (5' 8 ) 02/15/2013 10:4 6 AM EDT Body Mass Index 29.94 02/15/2013 10:46 AM EDT documented in this encounter Medications at Time of Discharge albuterol (PROVENTIL HFA;VENTOLIN HFA) 108 (90 BASE) MCG/ACT inhaler Inhale 2 puffs into the lungs every 6 (six) hours as needed for Wheezing . oseltamivir (TAMIFLU) 75 MG capsuleIndicatio ns:Influenza Take 1 capsule (75 mg total) by mouth 2 (two) times daily. 10 capsule 0 09/22/2012 03/30/2022 traZODone (DESYREL) 100 MG tablet Take 100 mg by mouth as needed. 08/04/2013 documented as of this encounter H&P Notes * Bianca Newman APRN - 02/15/2013 10:42 AM EDT Yovanny Malin is an 52 yr/o male. Verified name, date, dos, surgery site, surgeon No past medical history on file. No past surgical history on file. History Social History ??? Marital Status: Single Spouse Name: N/A Number of Children: N/A ??? Years of Education: N/A Occupational History ??? Not on file. Social History Main Topics ??? Smoking status: Not on file ??? Smokeless tobacco: Not on file ??? Alcohol Use: Not on file ??? Drug Use: Not on file ??? Sexually Active: Not on file Other Topics Concern ??? Not on file Social History Narrative ??? No narrative on file Allergies: Allergies as of 02/15/2013 Date Reviewed: 09/22/2012 No Known Allergies Active Problems: Cervical stenosis Blood pressure 138/89, pulse 90, temperature 98.8 ??F (37.1 ??C), temperature source Oral, resp. rate 16, height 5' 8 (1.727 m), weight 196 lb 14.4 oz (89.313 kg), SpO2 100.00%. Review of Systems Constitutional: Negative for fever, chills and malaise/fatigue. HENT: Positive for neck pain. Negative for hearing loss, ear pain, congestion, sore throat, tinnitus and ear discharge. Eyes: Negative for blurred vision, double vision, pain and discharge. Respiratory: Negative for cough, sputum production, shortness of breath and wheezing. Cardiovascular: Negative for chest pain, palpitations and leg swelling. Gastrointestinal: Negative for heartburn, nausea, vomiting, abdominal pain, diarrhea and constipation. Genitourinary: Negative for dysuria, urgency and frequency. Musculoskeletal: Negative for myalgias, back pain and joint pain. Skin: Negative for itching and rash. Neurological: Negative for dizziness, tingling, tremors, seizures, loss of consciousness, weakness and headaches. Endo/Heme/Allergies: Negative for environmental allergies. Does not bruise/bleed easily. Psychiatric/Behavioral: Negative for depression. The patient is not nervous/anxious. Physical Exam Constitutional: He is oriented to person, place, and time. He appears well- developed and well-nourished. HENT: Head: Normocephalic and atraumatic. MP11 Front gold teeth Neck: Normal range of motion. Neck supple. Cardiovascular: Normal rate, regular rhythm, normal heart sounds and intact distal pulses. Pulmonary/Chest: Effort normal and breath sounds normal. Abdominal: Soft. Bowel sounds are normal. Musculoskeletal: Decreased ROM neck Neurological: He is alert and oriented to person, place, and time. Skin: Skin is warm and dry. Psychiatric: He has a normal mood and affect. His behavior is normal. Assessment: Cervical stenosis Neck pain HTN Plan: Anterior cervical fusion with instrumentation per Dr Camargo on 02/16/13 Bianca Newman APRN 02/15/2013 documented in this encounter Miscellaneous Notes * Pre-Procedure Instructions - Josephine Billings - 02/15/2013 5:05 PM EDT PATIENT STATED HE IS CURRENTLY TAKING TRAZADONE, HYDROCODONE, AND A BLOOD PRESSURE MEDICATION. CALLED THE [facility] AND SPOKE WITH FRANNIE TO FIND OUT WHICH BLOOD PRESSURE MEDICATION THE PATIENT IS CURRENTLY TAKING. FRANNIE STATED THAT THE PATIENT HAS RECENTLY FILLED PRESCRIPTIONS FOR PROAIR, CIALIS, MUSE SUPPOSITORY, ANDROGEL, AND GABAPENTIN IN ADDITION TO HYDROCODONE, TRAZADONE, AND LISINOPRIL/HCTZ. THOSE MEDICATIONS WERE NOT REPORTED BY THE PATIENT. * Electro - Shady Camargo MD - 02/15/2013 12:00 AM EDT * Imaging - Shady Camargo MD - 02/15/2013 12:00 AM EDT documented in this encounter Plan of Treatment Upcoming Encounters Date Type Department Care Team (Late st Contact Info) Description 01/24/2025 1:40 PM EDT Office Visit [facility] - [address] [place] [address] Damien Cárdenas APRN [address] [place] [address] documented as of this encounter Procedures Procedure Name Priority Date/Time Associated Diagnosis Comments XR CHEST 2VW Routine 02/15/2013 12:46 PM EDT CBC W/DIFF Routine 02/15/2013 11:45 AM EDT TYPE AND SCREEN Routine 02/15/2013 11:45 AM EDT COMPREHENSIVE METABOLIC PANEL (CMP) Routine 02/15/2013 11:45 AM EDT ECG 12-LEAD Routine 02/15/2013 11:27 AM EDT documented in this encounter Results * XR Chest 2Vw (02/15/2013 12:46 PM EDT) Anatomical Region Laterality Modality Chest [facility] Radiographic Imaging 02/15/2013 1:55 PM EDT Impressions 02/15/2013 1:57 PM EDT CONCLUSION: ??No active disease. Dictated by: Marek Ann M.D. Images and Report reviewed and interpreted by: Marek Ann M.D. <PS><Electronically signed by: Marek Ann M.D.> 02/15/2013 1355 1355 1355 Narrative 02/15/2013 1:57 PM EDT RADIOLOGY REPORT FACILITY: ??[facility] UNIT/AGE/GENDER: JOSE ??OP ?AGE:52 Y ?SEX:M PATIENT NAME/: ??YOVANNY MALIN ?1960 UNIT NUMBER: ??[id number] ACCESSION NUMBER: ??[id number] DATE: ??February 15, 2013 HISTORY: Preop EXAMINATION: CHEST TWO VIEWS. COMPARISON: None FINDINGS: ??The heart and mediastinum are unremarkable. ??The lungs are fully expanded and clear. ??There is no evidence of pneumothorax or pleural effusion. Procedure Note Marek Ann MD - 02/15/2013 RADIOLOGY REPORT FACILITY: [facility] UNIT/AGE/GENDER: JOSE OP AGE:52 Y SEX:M PATIENT NAME/: YOVANNY MALIN 1960 UNIT NUMBER: [id number] ACCESSION NUMBER: [id number] DATE: February 15, 2013 HISTORY: Preop EXAMINATION: CHEST TWO VIEWS. COMPARISON: None FINDINGS: The heart and mediastinum are unremarkable. The lungs arefully expanded and clear. There is no evidence of pneumothorax or pleuraleffusion. CONCLUSION: No active disease. Dictated by: Marek Ann M.D. Images and Report reviewed and interpreted by: Marek Ann M.D. <PS><Electronically signed by: Marek Ann M.D.> 02/15/2013 1355 1355 1355 us Bianca Chen SENIOR STRATEGY ANALYST IMG DIAGNOSTIC IMAGING ORDER ALEX Final Result * Type and Screen (02/15/2013 11:45 AM EDT) Blood specimen from patient (specimen) BLOOD SPECIMEN FROM PATIENT / Unknown 02/15/2013 11:45 AM EDT 02/15/2013 12:02 PM EDT [facility] - 02/15/2013 3:10 PM EDT ?? ----- --------- ??RUN DATE: 02/15/13 ? [facility] *LIVE* ? PAGE 1 ??RUN TIME: 1520 ?Specimen Inquiry ?? ----- --------- ??PATIENT: YOVANNY MALIN ? LOC: ??J.PRE. ? U #: [id number] ? AGE/SX: 52/M ? ROOM: ?RE02/15/13 ??REG DR: ??Shady Camargo ?: ?1960 ?? BED: ? DIS: ? STATUS: REG CLI ?TLOC: ?? ----- --------- ??SPEC #: [id number] ?RICKY: 02/15/13 ? STATUS: ??COMP ? REQ #: [id number] ? RECD: 02/15/13 ? SUBM DR: Bianca Newman ??ENTERED: ?? 02/15/13 ? OTHR DR: ??ORD PRODS: (NO ORDERED PRODUCTS) ??ORD TESTS: TS, SECOND ABO/RH ??COMMENTS: ??EPIC ?? ----- --------- ?Test ? Result ? Flag ??Reference ?? ----- --------- ?BLOOD TYPE ? O POSITIVE ?ENRIQUE SCREEN GEL ? NEGATIVE ? ----- --------- ? END OF REPORT us Bianca L [place] SENIOR STRATEGY ANALYST BLOOD BANK TEST ORDERABLES F inal Result Performing Organization Address City/[facility]/ZIP Co de Phone Number [facility] ([employer]) * Comprehensive Metabolic Panel(CMP) (02/15/2013 11:45 AM EDT) Sodium 142 137 - 145 MMOL/L [facility] ([facility]) Potassium 4.1 3.5 - 5.1 MMOL/L [facility] ([facility]) Chloride 106 98 - 107 MMOL/L [facility] ([facility]) CO2 25 22 - 30 MMOL/L [facility] ([facility]) Glucose 88 74 - 106 MG/DL [facility] ([facility]) BUN 14 7 - 20 MG/DL [facility] ([facility]) Creatinine 0.9 0.7 - 1.5 MG/DL [facility] ([facility]) Total Protein 7.3 6.3 - 8.2 GM/DL [place] [id number]) Albumin 3.9 3.5 - 5.0 GM/DL [facility] ([facility]) Calcium 9.4 8.4 - 10.2 MG/DL [facility] ([facility]) Bilirubin-Total 0.7 0.2 - 1.3 MG/DL [facility] ([facility]) AST/SGOT 34 15 - 46 U/L [facility] ([facility]) ALT/SGPT 57 13 - 69 U/L [facility] ([facility]) Alkaline Phosphatase 103 38 - 126 U/L [place] [address]) Blood specimen from patient (specimen) BLOOD SPECIMEN FROM PATIENT / Unknown 02/15/2013 11:45 AM EDT 02/15/2013 12:02 PM EDT Bianca Chen SENIOR STRATEGY ANALYST LAB BLOOD ORDERABLES Final R esult [facility] ([employer]) [facility] ([facility]) [address] [place] [address] * (ABNORMAL) CBC w/Diff (02/15/2013 11:45 AM EDT) WBC 6.05 4.5 - 11.0 K/uL [facility] ([facility]) RBC 4.23(L) 4.5 - 5.9 M/uL [facility] ([facility]) HGB 13.8 13.5 - 17.5 GM/DL [facility] ([facility]) HCT 38.3(L) 41.0 - 53.0 % [facility] ([facility]) MCV 90.5 80.0 - 100.0 fl [facility] ([facility]) MCH 32.6 26.0 - 34.0 pg [facility] ([facility]) MCHC 36.0 31.0 - 37.0 g/dl [facility] ([facility]) RDW 13.5 12.0 - 16.8 % [facility] ([facility]) PLT 213 140 - 440 K/uL [facility] ([facility]) MPV 10.0 6.7 - 10.8 fl [facility] ([facility]) NEUT% 58 45 - 80 % [facility] ([facility]) Lymph% 30 15 - 50 % [facility] ([facility]) [place]% 6 0 - 15 % [facility] ([facility]) EOS% 5 0 - 7 % [facility] ([facility]) BASO% 0 0 - 2 % [facility]) IG% 0 0 % [facility] ([facility]) NRBC% 0 0 - 0 /100 WBC [facility] ([facility]) NEUT# 3.53 2.0 - 8.8 K/mm3 [facility] ([facility]) Lymph# 1.82 0.7 - 5.5 K/mm3 [facility] ([facility]) [place]# 0.39 0.0 - 1.7 K/mm3 [facility] ([facility]) EOS# 0.28 0.0 - 0.8 K/mm3 [facility] ([facility]) Baso# 0.02 0.0 - 0.2 K/mm3 [facility] ([id number]) Immature GRAN# 0.01 <1 K/uL [facility] ([id number]) Blood specimen from patient (specimen) BLOOD SPECIMEN FROM PATIENT / Unknown 02/15/2013 11:45 AM EDT 02/15/2013 12:02 PM EDT us Bianca Chen SENIOR STRATEGY ANALYST LAB BLOOD ORDERABLES Final R esult [facility] ([employer]) [facility] ([id number]) [address] [place] [id number] * EKG 12 lead (02/15/2013 11:27 AM EDT) 02/15/2013 11:2 7 AM EDT Narrative [facility] - 02/15/2013 3:14 PM EDT ELECTROCARDIOGRAM REPORT FACILITY: ??[facility] ROOM NUMBER: ?? PATIENT NAME/: ??, YOVANNY, ? 1960 UNIT NUMBER: ??[id number] ACCESSION NUMBER: ??[id number] DATE OF EXAM: ??02/15/2013 EXAMINATION(S): ??ECG 12-LEAD ELECTROCARDIOGRAM REPORT [id number]: ?EKG Severity ?TMV ECG ??- NORMAL ECG - ? 48441.22 ?Heart Rate ? TMV ECG ?82 ?bmp 31008.4 ?P-R Interval ?? TMV ECG ?148 ?ms 56863.5 ?QRS Interval ?TMV ECG ?72 ?ms 22485.6 ?? QT Interval ?TMV ECG ?336 ?ms 61070.7 ?QTC Interval ?? TMV ECG ?393 ?ms 36290.8 ?P [place] ? TMV ECG ?57 ?deg 87916.9 ?QRS [place] ? TMV ECG ?28 ?deg 92125.10 ?T Wave [place] ?TMV ECG ?17 ?deg DATE: 02/15/2013 FINDING(S):SINUS RHYTHM <Electronically signed by Kenny Stark> 02/15/2013 1127 Procedure Note Kenny Stark MD - 02/15/2013 ELECTROCARDIOGRAM REPORT FACILITY: [facility] ROOM NUMBER: PATIENT NAME/: YOVANNY MALIN, 1960 UNIT NUMBER: [id number] ACCESSION NUMBER: [id number] DATE OF EXAM: 02/15/2013 EXAMINATION(S): ECG 12-LEAD ELECTROCARDIOGRAM REPORT [id number]: EKG Severity TMV ECG - NORMAL ECG - 81803.22 Heart Rate TMV ECG 82 bmp 16255.4 P-R Interval TMV ECG 148 ms 20914.5 QRS Interval TMV ECG 72 ms 78372.6 QT Interval TMV ECG 336 ms 27007.7 QTC Interval TMV ECG 393 ms 93909.8 P [place] TMV ECG 57 deg 90191.9 QRS [place] TMV ECG 28 deg 68798.10 T Wave [place] TMV ECG 17 deg DATE: 02/15/2013 FINDING(S):SINUS RHYTHM <Electronically signed by Kenny Stark> 02/15/2013 1127 us Bianca Chen SENIOR STRATEGY ANALYST ECG ORDERABLES Final Result [facility] documented in this encounter Visit Diagnoses Not on filedocumented in this encounter Care Teams Health Analytics Consultant Relationship Specialty Start Date End Date None, Physician PCP - General 05/24/12 01/23/14 documented as of this encounter
--- OUTSIDE RECORDS SUMMARY | 2024-10-10 22:53 | XMS_ITS | Encounter Summary ---
Author Organization [facility] Address [address] [place] [address] Care Team Providers Care Academic Vice President Name Role Phone Lori Muniz MD Primary Care Provider [phone] Reason for Visit * Reason Comments Sleeping Problem ongoing issue Encounter Details Date Type Department Care Team (Late st Contact Info) Description 04/01/2014 9:30 AM EDT Office Visit [address] [place] [address] Mar Chambers MD [address] [facility] Administration [facility] [address] [place] [address] Medication refill (Primary Dx); Sleep disturbance Social History Tobacco Use Types Packs/Day Years [...] Sign Reading Time Taken Comments Blood Pressure 114/71 04/01/2014 9:30 AM EDT Pulse 98 04/01/2014 9:30 AM EDT Temperature 36.9 ??C (98.5 ??F) 04/01/2014 9:30 AM ED T Respiratory Rate 16 04/01/2014 9:30 AM EDT Oxygen Saturation 98% 04/01/2014 9:30 AM EDT Inhaled Oxygen Concentration - - Weight 87.5 kg (193 lb) 04/01/2014 9:30 AM EDT Height 175.3 cm (5' 9 ) 04/01/2014 9:30 AM EDT Body Mass Index 28.5 04/01/2014 9:30 AM EDT documented in this encounter Functional Status * Patient's Vision Adequate to Safely Complete Daily Activities Answer Date of Assessment Author Yes 02/16/2013 1:00 PM EDT Delmer Ceja RN documented as of this encounter Patient Instructions * Patient Instructions* Mar Chambers MD - 04/01/2014 9:45 AM EDT Insomnia WHAT YOU SHOULD KNOW: Insomnia is a condition that makes it hard to fall or stay asleep. Lack of sleep can lead to attention or memory problems during the day. You may also be conrad, depressed, clumsy, or have headaches. Stress, medical conditions, and medicines can increase your risk of insomnia. AFTER YOU LEAVE: Medicines: You may need any of the following: ?? Sleep medicines may help you sleep more regularly. Sleep medicines are available with or withouta doctor's order. If you do not get a doctor's order, ask which medicine to get. Ask how much to take, and how often to take it. ?? Antianxiety medicine may help relax you so you feel less anxious. ?? Take your medicine as directed. Call your primary healthcare provider if you think your medicineis not helping or if you have side [...] Follow up with your primary healthcare provider (PHP) as directed: Your PHP may refer you to a behavioral therapist to help you find ways to decrease stress and improve sleep. Write down your questions so you remember to ask them during your visits. What you can do to improve your sleep: ?? Keep your bedroom cool, quiet, and dark. Turn on white noise, such as a fan, to help you relax. Do not use your bed for any activity that will keep you awake. Do not read, exercise, eat, or watch TV in your bedroom. ?? Create a sleep schedule. This will help you form a sleep routine. Keep a record of your sleep patterns, and any sleeping problems you have. Bring the record to follow-up visits with caregivers. ?? Get up if you do not fall asleep within 30 minutes. Move to another room and do something relaxing for 30 minutes or until you become sleepy. ?? Exercise regularly. Regular exercise may help you sleep better. Exercise at least 3 hours beforebedtime. ?? Limit caffeine, alcohol, and smoking before bedtime. Only drink caffeine in the morning. Do not eat a heavy meal right before you go to bed. Eat a light snack as directed. ?? Do not take naps. Naps could make it hard for you to fall asleep at bedtime. Contact your PHP if: ?? Your symptoms, such as daytime sleepiness or depression get worse. ?? You begin to use drugs or alcohol to fall asleep or stay awake. ?? You have questions or concerns about your medicines, condition, or care. Seek care immediately or call 911 if: ?? You feel you may harm yourself or others. ?? 2012 [employer]. Information is for End User's use only and may not be sold, redistributed or otherwise used for commercial purposes. All illustrations and images included in CareNotes?? are the copyrighted property of the [employer] or [employer]. The above information is an pathology laboratory aides teacher only. It is not intended as medical advice for individual conditions or treatments. Talk to your doctor, nurse or pharmacist before following any medical regimen to see if it is safe and effective for you. documented in this encounter Progress Notes * Mar Chambers MD - 04/01/2014 10:16 AM EDT Patient Identification: Name: Yovanny Steve Age: 53 yr/o Gender: male : 1960 PCP: Lori Muniz MD Chief Complaint: Yovanny Steve is presenting today for Sleeping Problem . History of Present Illness: HPI Comments: Pt here for a med refill of his trazadone which he uses at night to help with his sleep. 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 Has used trazadone in the past and rec'd a refill from the [facility] in July. Due to his schedule it's difficult for him to see his PCP. Denies recent illness/f/n/v/d. History, Medications, Allergies, and Review of Symptoms: [...] S1 Current Medications: Outpatient Prescriptions as of 04/01/2014 Medication Sig Dispense Refill ??? tadalafil (CIALIS) 20 MG tablet Take [...] tablet by mouthdaily. Allergies: Allergies as of 04/01/2014 Review Complete On: 04/01/2014 By: Brenda Ash No Known Allergies Family Medical History: Family History Problem Relation Age of Onset ??? Other Mother pneumonia ??? Cancer, Other or Unknown Type Father prostate Social History: History Substance Use Topics ??? Smoking status: Never Smoker ??? Smokeless tobacco: Never Used ??? Alcohol Use: Yes Comment: OCCASIONAL Review of Symptoms: Review of Systems Constitutional: Negative. Negative for fever, chills and malaise/fatigue. HENT: Negative. Eyes: Negative. Respiratory: Negative. Negative for cough. Cardiovascular: Negative. Negative for chest pain. Gastrointestinal: Negative. Negative for nausea, vomiting and diarrhea. Genitourinary: Negative. Musculoskeletal: Negative. Negative for myalgias and joint pain. Skin: Negative. Neurological: Negative. Negative for headaches. Physical Exam: Filed Vitals: 04/01/14 0930 BP: 114/71 Pulse: 98 Temp: 98.5 ??F (36.9 ??C) TempSrc: Oral Resp: 16 Height: 5' 9 (1.753 m) Weight: 193 lb (87.544 kg) SpO2: 98% Physical Exam Constitutional: He is oriented to person, place, and time. He appears well- developed and well-nourished. No distress. HENT: Head: Normocephalic and atraumatic. Cardiovascular: Normal rate, regular rhythm and normal heart sounds. Pulmonary/Chest: Effort normal and breath sounds normal. No respiratory distress. Neurological: He is alert and oriented to person, place, and time. Skin: Skin is warm and dry. Psychiatric: He has a normal mood and affect. His behavior is normal. Judgment and thought content normal. Nursing note and vitals reviewed. Assessment/Plan: Diagnoses and orders/medications from this encounter No diagnosis found. Encounter Medications Signed Prescriptions Disp Refills ??? traZODone (DESYREL) 100 MG tablet 30 tablet 3 Sig: Take 1 tablet by mouth nightly Results this visit (if any) No results found for this visit on 04/01/14. Follow-up (if any) Return Where: Primary Care Return Why: if not better, sooner if worse Patient Instructions Insomnia WHAT YOU SHOULD KNOW: Insomnia is a condition that makes it hard to fall or stay asleep. Lack of sleep can lead to attention or memory problems during the day. You may also be conrad, depressed, clumsy, or have headaches. Stress, medical conditions, and medicines can increase your risk of insomnia. AFTER YOU LEAVE: Medicines: You may need any of the following: ?? Sleep medicines may help you sleep more regularly. Sleep medicines are available with or withouta doctor's order. If you do not get a doctor's order, ask which medicine to get. Ask how much to take, and how often to take it. ?? Antianxiety medicine may help relax you so you feel less anxious. ?? Take your medicine as directed. Call your primary healthcare provider if you think your medicineis not helping or if you have side [...] Follow up with your primary healthcare provider (PHP) as directed: Your PHP may refer you to a behavioral therapist to help you find ways to decrease stress and improve sleep. Write down your questions so you remember to ask them during your visits. What you can do to improve your sleep: ?? Keep your bedroom cool, quiet, and dark. Turn on white noise, such as a fan, to help you relax. Do not use your bed for any activity that will keep you awake. Do not read, exercise, eat, or watch TV in your bedroom. ?? Create a sleep schedule. This will help you form a sleep routine. Keep a record of your sleep patterns, and any sleeping problems you have. Bring the record to follow-up visits with caregivers. ?? Get up if you do not fall asleep within 30 minutes. Move to another room and do something relaxing for 30 minutes or until you become sleepy. ?? Exercise regularly. Regular exercise may help you sleep better. Exercise at least 3 hours beforebedtime. ?? Limit caffeine, alcohol, and smoking before bedtime. Only drink caffeine in the morning. Do noteat a heavy meal right before you go to bed. Eat a light snack as directed. ?? Do not take naps. Naps could make it hard for you to fall asleep at bedtime. Contact your PHP if: ?? Your symptoms, such as daytime sleepiness or depression get worse. ?? You begin to use drugs or alcohol to fall asleep or stay awake. ?? You have questions or concerns about your medicines, condition, or care. Seek care immediately or call 911 if: ?? You feel you may harm yourself or others. ?? 2013 [employer]. Information is for End User's use only and may not be sold, redistributed or otherwise used for commercial purposes. All illustrations and images included in CareNotes?? are the copyrighted property of the [employer] or [employer]. The above information is an pathology laboratory aides teacher only. It is not intended as medical advice for individual conditions or treatments. Talk to your doctor, nurse or pharmacist before following any medical regimen to see if it is safe and effective for you. documented in this encounter Plan of Treatment Upcoming Encounters Date Type Department Care Team (Late st Contact Info) Description 01/24/2025 1:40 PM EDT Office Visit [address] [id number] Damien Cárdenas, FIBERGLASS FINISHER [address] [place], [place] [id number] documented as of this encounter Visit Diagnoses Diagnosis Medication refill- Primary Issue of repeat prescriptions Sleep disturbance Unspecified sleep disturbance documented in this encounter Care Teams Academic Vice President Relationship Specialty Start Date End Date Lori Muniz MD PCP - General Family Medicine 01/24/14 11/16/14 documented as of this encounter
--- OUTSIDE RECORDS SUMMARY | 2024-10-10 22:53 | XMS_ITS | Encounter Summary ---
Author Organization [facility] Address [address] [place] [address] Care Team Providers Care Gun Profiler Name Role Phone Keanu Brooks DO Primary Care Provider [phone] Encounter Details Date Type Department Care Team (Late Contact Info) Description 12/26/2020 8:10 AM EDT Immunization [facility] [address] [place] [address] [address] [place] [address] Social History Tobacco Use Types [...] EDT Office Visit [facility] [address] [facility] [address] [place] [address] Damien Cárdenas, TANG [address] [place], [place] [id number] documented as of this encounter Visit Diagnoses Not on filedocumented in this encounter Care Teams Gun Profiler Relationship Specialty Start Date End Date Keanu Brooks DO PCP - General Family Medicine 01/14/20 documented as of this encounter
--- OUTSIDE RECORDS SUMMARY | 2024-10-10 22:53 | XMS_ITS | Encounter Summary ---
Author Organization [facility] Address [address] [place] [address] Care Team Providers Care Wave Soldering Machine Operator Name Role Phone None, Physician Primary Care Provider Unavailabl e Reason for Visit * Auth/Cert - Closed Specialty Diagnoses / Procedures Referred By Moshe denis Referred To Contact Diagnoses CERIVCAL STENOSIS Procedures ANTERIOR CERVICAL FUSION W/INST Referral ID Status Reason Start Date Expiration Date Visits Re quested Visits Authorized [id number] Closed 1 1 Encounter Details Date Type Department Care Team (Late st Contact Info) Description 02/15/2013 11:57 AM EDT - 02/15/2013 11:59 PM EDT Hospital Encounter [facility] Radiology [address] [place] [address] Bianca Chen, TANG [address] [place], [place] [phone] Discharge Disposition: Home or Self Care Social [...] Description 01/24/2025 1:40 PM EDT Office Visit [facility] - [address] [address] Damien Cárdenas, COMMISSIONS ANALYST [address] [place] [address] documented as of this encounter Procedures Procedure Name Priority Date/Time Associated Diagnosis Comments XR CHEST 2VW Routine 02/15/2013 12:46 PM EDT documented in this encounter Results * XR Chest 2Vw (02/15/2013 12:46 PM EDT) Anatomical Region Laterality Modality Chest [facility] Radiographic Imaging 02/15/2013 1:55 PM EDT Impressions 02/15/2013 1:57 PM EDT CONCLUSION: ??No active disease. Dictated by: Marek Ann M.D. Images and Report reviewed and interpreted by: Marek Ann M.D. <PS><Electronically signed by: Marek Ann M.D.> 02/15/2013 1355 1355 [id number] Narrative 02/15/2013 1:57 PM EDT RADIOLOGY REPORT FACILITY: ??[facility] UNIT/AGE/GENDER: JOSE ??OP ?AGE:52 Y ?SEX:M PATIENT NAME/: ??HIGH, YOVANNY ?1960 UNIT NUMBER: ??[id number] ACCESSION NUMBER: ??[id number] DATE: ??February 15, 2013 HISTORY: Preop EXAMINATION: CHEST TWO VIEWS. COMPARISON: None FINDINGS: ??The heart and mediastinum are unremarkable. ??The lungs are fully expanded and clear. ??There is no evidence of pneumothorax or pleural effusion. Procedure Note Marek Ann MD - 02/15/2013 RADIOLOGY REPORT FACILITY: [facility] UNIT/AGE/GENDER: JOSE OP AGE:52 Y SEX:M PATIENT NAME/: YOVANNY MALIN 1960 UNIT NUMBER: [id number] ACCESSION NUMBER: [id number] DATE: February 15, 2013 HISTORY: Preop EXAMINATION: CHEST TWO VIEWS. COMPARISON: None FINDINGS: The heart and mediastinum are unremarkable. The lungs arefully expanded and clear. There is no evidence of pneumothorax or pleuraleffusion. CONCLUSION: No active disease. Dictated by: Marek Ann M.D. Images and Report reviewed and interpreted by: Marek Ann M.D. <PS><Electronically signed by: Marek Ann M.D.> 02/15/2013 1355 1355 1355 Bianca Chen COMMISSIONS ANALYST IMG DIAGNOSTIC IMAGING ORDER ALEX Final Result documented in this encounter Visit Diagnoses Not on filedocumented in this encounter Care Teams Wave Soldering Machine Operator Relationship Specialty Start Date End Date None, Physician PCP - General 05/24/12 01/23/14 documented as of this encounter
--- OUTSIDE RECORDS SUMMARY | 2024-10-10 22:53 | XMS_ITS | Encounter Summary ---
Author Organization [facility] Address [address] [place] [address] Care Team Providers Care Manager Analytical Name Role Phone None, Physician Primary Care Provider Unavailabl e Reason for Visit * Auth/Cert - Closed Specialty Diagnoses / Procedures Referred By Moshe t Referred To Contact Diagnoses CERIVCAL STENOSIS Procedures ANTERIOR CERVICAL FUSION W/INST Referral ID Status Reason Start Date Expiration Date Visits Re quested Visits Authorized [id number] Closed 1 1 Encounter Details Date Type Department Care Team (Late st Contact Info) Description 02/16/2013 7:39 AM EDT Anesthesia Event [facility] Periop Services [address] [place] [address] Mitch Lang MD [address] [facility] [address] [place], [place] [id number] Natasha Cervantes RN Anesthesia Record Procedure Summary Procedure Name Responsible Anesthesiologist Anesthesia Start Time Anesthesia Stop Time ANTERIOR CERVICAL FUSION WITH INST (Bilateral) Mitch Lang MD 02/16/13 0739 02/16/13 1018 Events Date Time Event Comment 02/16/2013 0735 0739 An Start 0742 An Start Data 0747 An Induction 0750 An Intubation 0807 an jerome now 0959 An Emergence 1008 An Extubation Spont resp wit h adequate RR/TV; OP sx; Extubated with Positive Pressure. HOB elevated.To PACU w/O2 per NC. 1010 an stop data 1011 an stop data 1018 An Stop 1018 Anesthesia Handoff Makenna Condon handed off to PACU nurse. Meds Name Total promethazine 25 mg/mL injection 6.25 mg midazolam 1mg/mL 2 mg succinylcholine 20 mg/mL inj 120 mg propofol 10mg/ml inj 200 mg lidocaine PF 2% inj 40 mg fentanyl 0.05mg/ml 150 mcg rocuronium 10mg/ml 45 mg hydromorphone 2 mg/mL 1 mg ceFAZolin (KEFZOL/ANCEF) 2 g in dextrose 5 % 50 mL IVPB infusion 2 g ephedrine injection 7.5 mg phenylephrine inj 1,000 mcg hydroxyethyl starch (VOLUVEN) 6-0.9% IV soln Cannot be calculated ondansetron inj 4 mg glycopyrrolate 0.2mg/ml 0.3 mg neostigmine 1 mg/mL 2 mg lactated ringers infusion 800 mL * Agents Name O2 Fi Sevoflurane Et Sevoflurane * Blood No blood administrations on file. Lines, Drains, and Airways Type Details Placement Removal ADULT Peripheral IV Size: 18 G; Orientat ion: Right; Location: Hand; Site Prep: Chlorhexidine ; Local Anesthetic: Injectable; Insertion attempts: 1; Patient Tolerance: Tolerated well; Removal Reason: Per order; Catheter Removed Intact: Yes 02/16/13 0710 by Natasha Rendon RN 02/18/13 1104 by Mee Fuller RN ETT Location: Mouth; Siz e: 7.5; Cuff: Cuffed; Secured@:21 cm; Blade: Fernandes 2; Grade View: 2; Other devices used: Stylet; Technique: Atraumatic, LTA lidocaine spray; Post Intubation check: Bilateral breath sounds, End tidal CO2; Dentition: Intact (SOFT BITE BLOCK); Insertion attempts: 1 02/16/13 0750 by Makenna Condon, SHIPMASTER 02/16/13 1008 by Makenna Condon CRNA Urethral Catheter Inserted by: ELISA HDZ RN; Catheter Type: Non-latex; Tube Size: 16 Fr.; Catheter Balloon Size: 10 mL; Urine Returned: Yes; Removal Reason: Per order 02/16/13 0755 by Elisa Hdz RN 02/16/13 1005 by Elisa Hdz RN Closed/Suction Drain 02/16/13; 0948; 1; Medial; Neck; Bulb; 7 Fr.; (PER MDZay) 02/16/13 0948 by Elisa Hdz RN 02/18/13 1105 by Mee Fuller RN Incision 02/16/13; 0958; Terrence r (Comment); 02/18/13; 1104 02/16/13 0958 by Elisa Hdz RN 02/18/13 1104 by Mee Fuller RN documented in this encounter Social History [...] on file documented as of this encounter OR Notes * Anesthesia Postprocedure Evaluation - Mitch Lang MD - 02/16/2013 11:26 AM EDT Post-Anesthesia Evaluation Patient: Yovanny Steve Patient [...] appropriate. Pain and nausea are adequately controlled. Patient Vitals for the past 24 hrs (Last 1 readings): BP Temp Temp src Pulse Resp SpO2 Height Weight 02/16/13 1115 120/79 mmHg - - 91 14 - - - 02/16/13 1100 120/82 mmHg - - 91 16 100 % - - 02/16/13 1045 118/77 mmHg - - 97 16 100 % - - 02/16/13 1030 121/67 mmHg - - 91 14 100 % - - 02/16/13 1013 111/74 mmHg 36.2 ??C Temporal 115 14 100 % - - 02/16/13 0700 135/84 mmHg 36.7 ??C Oral 82 16 100 % 1.753 m 87.816 kg Anesthesia complications or comments: None * Anesthesia Preprocedure Evaluation - Mitch Lang MD - 02/16/2013 7:13 AM EDT Review of Systems Patient summary reviewed. ECG reviewed. No history of anesthetic complications. Pulmonary: Positive (+) for asthma and sleep apnea. Asthma: Controlled. Sleep Apnea: CPAP. Neuro/Psych: Negative for neurological and psychiatric complications. Cardiovascular: Positive (+) for hypertension. Hypertension: Controlled. Endo: Negative for endocrinological complications. GI: Negative for GI complications. Musculoskeletal: Positive (+) for cervical spine disease. Additional comments: CERVCIAL STENOSIS CERVICAL NECK PAIN..RADIATES LEFT ARM ROS Additional Findings: YOVANNY UPPER FRONT CAPS X2 Physical Exam Airway: Mallampati: I TM distance: >3 FB Neck ROM: Full Cardiovascular: Cardiovascular exam normal. Pulmonary: Pulmonary exam normal. Anesthesia Plan ASA: 2 Anesthesia Plan: General Induction: Intravenous Maintenance: Inhalation Lines: exisiting line Planned Post Procedure Care: PACU and Inpatient Anesthetic Plan and Risks discussed with: Patient. Informed consent obtained. Plan discussed with: SHIPMASTER documented in this encounter Plan of Treatment Upcoming Encounters Date Type Department Care Team (Late st Contact Info) Description 01/24/2025 1:40 PM EDT Office Visit [facility] - [address] [address] Damien Cárdenas, TANG [address] [place], [place] [address] documented as of this encounter Visit Diagnoses Not on filedocumented in this encounter Administered Medications Inactive Administered Medications - up to 3 most recent administrations Medication Order MAR Action Action Date Dose Rate Site ceFAZolin (KEFZOL/ANCEF) 2 g in dextrose 5 % 50 mL IVPB infusion 2 g, Intravenous, at 120 mL/hr, Once, On Tue02/16/13 at 0730, For 1 dose, 60 mL, Administer over 30 Minutes, Routine New Bag 02/16/2013 7:58 AM EDT 2 g ePHEDrine injection PRN, Starting on Tue02/16/13 at 0831, Until Tue02/16/13 at 1020, Anesthesia Intra-op, Routine Given 02/16/2013 8:31 AM EDT 7.5 mg fentaNYL (SUBLIMAZE) injection PRN, Other, Starting on Tue02/16/13 at 0806, Until Tue02/16/13 at 1020, Anesthesia Intra-op, Routine Given 02/16/2013 8:47 AM EDT 50 mcg Given 02/16/2013 8:06 AM EDT 100 mcg glycopyrrolate (ROBINUL) injection PRN, Starting on Tue02/16/13 at 0959, Until Tue02/16/13 at 1020, Anesthesia Intra-op, Routine Given 02/16/2013 9:59 AM EDT 0.3 mg HYDROmorphone (DILAUDID) injection PRN, Severe pain, Starting on Tue02/16/13 at 0755, For IV administration, Dilute 2 mg to Final Volume of 10 ml and Give the Ordered Dose SLOW Push Over 2-3 Minutes, Until Tue02/16/13 at 1020, Anesthesia Intra-op, Routine Given 02/16/2013 7:55 AM EDT 1 mg hydroxyethyl starch in NaCl (VOLUVEN) 6-0.9 % infusion SOLN Continuous PRN, Starting on Tue02/16/13 at 0925, Initial 10 To 20 mL Should Be Infused Slowly, Keeping The Patient Under Close Observation Due To Possible Anaphylactoid Reactions., Until Tue02/16/13 at 1020, Anesthesia Intra-op, Routine New Bag 02/16/2013 9:25 AM EDT mL lactated ringers infusion Intravenous, at 25 mL/hr, Continuous, Starting on Tue02/16/13 at 0630, KVO, 1,000 mL, Until Tue02/16/13 at 1252, Pre-op, Routine Restarted 02/16/2013 9:55 AM EDT mL New Bag 02/16/2013 7:10 AM EDT 25 mL/hr lidocaine (XYLOCAINE) 2 % injectable PRN, Starting on Tue02/16/13 at 0747, Until Tue02/16/13 at 1020, Anesthesia Intra-op, Routine Given 02/16/2013 7:47 AM EDT 40 mg midazolam (VERSED) injection Intravenous, PRN, Anxiety, Starting on Tue02/16/13 at 0729, Until Tue02/16/13 at 1020, Anesthesia Intra-op, Routine Given 02/16/2013 7:29 AM EDT 2 mg neostigmine (PROSTIGMINE) injection PRN, Starting on Tue02/16/13 at 0959, Until Tue02/16/13 at 1020, Anesthesia Intra-op, Routine Given 02/16/2013 9:59 AM EDT 2 mg ondansetron (ZOFRAN) injection PRN, Nausea, Vomiting, Starting on Tue02/16/13 at 0955, Until Tue02/16/13 at 1020, Anesthesia Intra-op, Routine Given 02/16/2013 9:55 AM EDT 4 mg phenylephrine (EUGENIA-SYNEPHRINE) injection PRN, Starting on Tue02/16/13 at 0901, Until Tue02/16/13 at 1020, Anesthesia Intra-op, Routine Given 02/16/2013 9:55 AM EDT 200 mcg Given 02/16/2013 9:25 AM EDT 200 mcg Given 02/16/2013 9:15 AM EDT 200 mcg promethazine (PHENERGAN) injection PRN, Starting on Tue02/16/13 at 0754, For IV Administration: Using a 20 ml Syringe, Always Dilute 25 mg (1 ml) in 19 mL of NS for total volume of 20 ml And A Final Concentration of 1.25 mg/Ml. Doses with this concentration are: 6.25mg/5ml, 12.5mg/10ml, 25mg/20 ml. Always administer slow over at least 2 minutes., Until Tue02/16/13 at 1020, Anesthesia Intra-op, Routine Given 02/16/2013 7:54 AM EDT 6.25 mg propofol (DIPRIVAN) injection PRN, Starting on Tue02/16/13 at 0747, Change Vial And Tubing At Least Every 12 Hours., Until Tue02/16/13 at 1020, Anesthesia Intra-op, Routine Given 02/16/2013 7:47 AM EDT 200 mg rocuronium (ZEMURON) injection PRN, Starting on Tue02/16/13 at 0808, Until Tue02/16/13 at 1020, Anesthesia Intra-op, Routine Given 02/16/2013 8:45 AM EDT 20 mg Given 02/16/2013 8:08 AM EDT 20 mg Given 02/16/2013 7:47 AM EDT 5 mg succinylcholine (ANECTINE) injection PRN, Starting on Tue02/16/13 at 0747, Until Tue02/16/13 at 1020, Anesthesia Intra-op, Routine Given 02/16/2013 7:47 AM EDT 120 mg documented in this encounter Care Teams Manager Analytical Relationship Specialty Start Date End Date None, Physician PCP - General 05/24/12 01/23/14 documented as of this encounter
--- OUTSIDE RECORDS SUMMARY | 2024-10-10 22:53 | XMS_ITS | Encounter Summary ---
Author Organization [facility] Address [address] [place] [address] Care Team Providers Care Field Operations Supervisor Name Role Phone System, Provider Not In Primary Care Provider Un available Reason for Visit * Reason Comments Cough W/ FEVER X 2 DAYS Encounter Details Date Type Department Care Team (Late st Contact Info) Description 12/04/2015 9:15 AM EDT Office Visit [facility] - [address] [address] Laurita Hernandez MD Influenza-like illness (Primary Dx); Cough Social History Tobacco Use Types Packs/Day Years [...] Sign Reading Time Taken Comments Blood Pressure 133/82 12/04/2015 9:19 AM EDT Pulse 94 12/04/2015 9:19 AM EDT Temperature 37.3 ??C (99.2 ??F) 12/04/2015 9:19 AM ED T Respiratory Rate 20 12/04/2015 9:19 AM EDT Oxygen Saturation 96% 12/04/2015 9:19 AM EDT Inhaled Oxygen Concentration - - Weight 97.1 kg (214 lb) 12/04/2015 9:19 AM EDT Height - - Body Mass Index 31.6 11/20/2014 6:52 PM EST documented in this encounter Functional Status * Patient's Vision Adequate to Safely Complete Daily Activities Answer Date of Assessment Author Yes 02/16/2013 1:00 PM EDT Delmer Ceja RN documented as of this encounter Patient Instructions * Patient Instructions* Laurita Hernandez MD - 12/04/2015 9:37 AM EDT Influenza WHAT YOU SHOULD KNOW: Influenza (the flu) is an infection caused by the influenza virus. The flu is easily spread when aninfected person coughs, sneezes, or has close contact with others. You may be able to spread the flu to others for 1 week or longer after signs or symptoms appear. INSTRUCTIONS: Medicines: ?? Acetaminophen: This medicine decreases pain and fever. You can buy acetaminophen without a doctor's order. Ask how much to take and how often to take it. Follow directions. Acetaminophen can causeliver damage if not taken correctly. ?? NSAIDs: These medicines decrease pain and fever. You can buy NSAIDs without a doctor's order. Ask your primary healthcare provider which medicine is right for you, and how much to take. Take as directed. NSAIDs can cause stomach bleeding or kidney problems if not taken correctly. ?? Antivirals: This is given to fight an infection caused by a virus. ?? Take your medicine as directed. Call [...] with your primary healthcare provider as directed: Write down your questions so you remember to ask them during your visits. Manage your symptoms: ?? Rest and sleep: Rest and sleep may help you get better faster when you have the flu. ?? Drink plenty of liquids: Ask your primary healthcare provider how much liquid to drink each day and which liquids are best for you. This can help prevent dehydration. Prevent the spread of influenza: ?? Wash your hands often: Use soap and water. Use gel hand cleanser when there is no soap and water available. Do not touch your eyes, nose, or mouth unless you have washed your hands first. ?? Cover your mouth when you sneeze or cough: Cough into a tissue or your shirtsleeve so you do notspread germs. ?? Clean shared items: Clean table surfaces, doorknobs, and light switches with a germ-killing dry cleaner helper. Do not share towels, silverware, and dishes with people who are sick. Wash bed sheets, towels, silverware, and dishes with soap and water. ?? Wear a face mask: Wear a mask over your mouth and nose if you have the flu or are near anyone who has the flu. Ask where to buy single-use masks. ?? Stay home if you are sick: Stay away from others as much as possible while you recover. ?? Influenza vaccine: This vaccine helps prevent influenza (flu). Everyone older than age 6 months should get a yearly influenza vaccine. Get the vaccine as soon as it is available, usually in June or July each year. Contact your primary healthcare provider if: ?? Your symptoms get worse. ?? You have new symptoms, such as muscle pain or weakness. ?? You have questions or concerns about your condition or care. Return to the emergency department if: ?? You are dizzy, or you are urinating less or not at all. ?? You have a seizure. ?? You have a headache with a stiff neck, and you feel very tired or confused. ?? You have trouble breathing, and your lips look purple or blue. ?? You have new pain or pressure in your chest. ?? 2013 [employer]. Information is for End User's use only and may not be sold, redistributed or otherwise used for commercial purposes. All illustrations and images included in CareNotes?? are the copyrighted property of the [employer] or [employer]. The above information is an educational paraprofessional only. It is not intended as medical advice for individual conditions or treatments. Talk to your doctor, nurse or pharmacist before following any medical regimen to see if it is safe and effective for you. documented in this encounter Progress Notes * Laurita Hernandez MD - 12/04/2015 12:02 PM EDT Patient Identification: Name: Yovanny Steve Age: 55 yr/o Gender: male : 1960 PCP: System, Provider Not In Chief Complaint: Yovanny Steve is presenting today for Cough . History of Present Illness: Cough This is a new problem. The current episode started 6 to 12 hours ago. The problem occurs every few minutes. The problem has been rapidly worsening. The cough is non-productive. The maximum temperature recorded prior to his arrival was 100 to 100.9 F. The fever has been present for less than 1 day. Associated symptoms include chills, rhinorrhea, sore throat, myalgias and pleuritic pain. Pertinent negatives include no sweats, no weight loss, no ear congestion, no ear pain, no headaches, no shortness of breath, no wheezing and no eye redness. He is not a smoker. His past medical history is significant for bronchitis. His past medical history does not include pneumonia. There were no sick contacts (did not get flu vaccine this year. was here at the office last week ; people were sick in the waiting room ). He has received no recent medical care. [...] S1 Current Medications: Outpatient Prescriptions as of 12/04/2015 Medication Sig Dispense Refill ??? albuterol (PROVENTIL [...] 30 tablet 0 Allergies: Allergies as of 12/04/2015 Review Complete On: 12/04/2015 By: Laurita Hernandez MD No Known Allergies Family Medical History: Family History Problem Relation Age of Onset ??? Other Mother pneumonia ??? Cancer, Other or Unknown Type Father prostate Social History: History Substance Use Topics ??? Smoking status: Never Smoker ??? Smokeless tobacco: Never Used ??? Alcohol Use: Yes Comment: OCCASIONAL Review of Symptoms: Review of Systems Constitutional: Positive for chills and malaise/fatigue. Negative for fever and weight loss. HENT: Positive for congestion, rhinorrhea and sore throat. Negative for ear pain. Eyes: Negative for discharge and redness. Respiratory: Positive for cough. Negative for sputum production, shortness of breath and wheezing. Cardiovascular: Negative. Gastrointestinal: Negative for nausea, vomiting and abdominal pain. Genitourinary: Negative. Musculoskeletal: Positive for myalgias. Negative for neck pain. Skin: Negative for itching and rash. Neurological: Negative for dizziness, sensory change and headaches. Endo/Heme/Allergies: Positive for environmental allergies. Does not bruise/bleed easily. Physical Exam: BP 133/82 mmHg Pulse 94 Temp(Src) 99.2 ??F (37.3 ??C) (Oral) Resp 20 Wt 214 lb (97.07 kg) SpO2 96% Physical Exam Constitutional: He is oriented to person, place, and time. He appears well- developed and well-nourished. No distress. HENT: Head: Normocephalic and atraumatic. Nose: Mucosal edema and rhinorrhea present. Mouth/Throat: Mucous membranes are normal. Posterior oropharyngeal erythema present. No oropharyngeal exudate or tonsillar abscesses. Eyes: Conjunctivae are normal. Right eye exhibits no discharge. Left eye exhibits no discharge. Neck: Normal range of motion. Neck supple. Cardiovascular: Normal rate, regular rhythm and normal heart sounds. No murmur heard. Pulmonary/Chest: Effort normal and breath sounds normal. No respiratory distress. He has no wheezes. Abdominal: Soft. He exhibits no distension. There is no tenderness. Musculoskeletal: Normal range of motion. Lymphadenopathy: He has cervical adenopathy. Neurological: He is alert and oriented to person, place, and time. Skin: Skin is warm and dry. No rash noted. He is not diaphoretic. No erythema. No pallor. Psychiatric: He has a normal mood and affect. His behavior is normal. Judgment and thought content normal. Nursing note and vitals reviewed. Assessment/Plan: Diagnoses and orders/medications from this encounter 1. Influenza-like illness POCT Influenza A/B acetaminophen (TYLENOL 8 HOUR) 650 MG CR tablet oseltamivir (TAMIFLU) 75 MG capsule 2. Cough promethazine-dextromethorphan (PROMETHAZINE-DM) 6.25-15 MG/5ML syrup Encounter Medications Signed Prescriptions Disp Refills ??? promethazine-dextromethorphan (PROMETHAZINE-DM) 6.25-15 MG/5ML syrup 105 mL 0 Sig: Take 5 mLs by mouth 3 (three) times daily as needed for Cough for up to 7 days DO NOT TAKE MEDICATION WHEN DRIVING OR AT WORK ??? acetaminophen (TYLENOL 8 HOUR) 650 MG CR tablet 30 tablet 0 Sig: Take 1 tablet by mouth every 8 (eight) hours as needed for Pain for up to 10 days ??? oseltamivir (TAMIFLU) 75 MG capsule 10 capsule 0 Sig: Take 1 capsule by mouth 2 (two) times daily for 5 days Results this visit (if any) Results for orders placed or performed in visit on 12/04/15 POCT Influenza A/B Result Value Ref Range Rapid Influenza A Ag Negative Negative Rapid Influenza B Ag Negative Negative Follow-up (if any) Return for follow up with PCP in 7 days. Patient Instructions Influenza WHAT YOU SHOULD KNOW: Influenza (the flu) is an infection caused by the influenza virus. The flu is easily spread when aninfected person coughs, sneezes, or has close contact with others. You may be able to spread the flu to others for 1 week or longer after signs or symptoms appear. INSTRUCTIONS: Medicines: ?? Acetaminophen: This medicine decreases pain and fever. You can buy acetaminophen without a doctor's order. Ask how much to take and how often to take it. Follow directions. Acetaminophen can causeliver damage if not taken correctly. ?? NSAIDs: These medicines decrease pain and fever. You can buy NSAIDs without a doctor's order. Ask your primary healthcare provider which medicine is right for you, and how much to take. Take as directed. NSAIDs can cause stomach bleeding or kidney problems if not taken correctly. ?? Antivirals: This is given to fight an infection caused by a virus. ?? Take your medicine as directed. Call [...] with your primary healthcare provider as directed: Write down your questions so you remember to ask them during your visits. Manage your symptoms: ?? Rest and sleep: Rest and sleep may help you get better faster when you have the flu. ?? Drink plenty of liquids: Ask your primary healthcare provider how much liquid to drink each day and which liquids are best for you. This can help prevent dehydration. Prevent the spread of influenza: ?? Wash your hands often: Use soap and water. Use gel hand cleanser when there is no soap and wateravailable. Do not touch your eyes, nose, or mouth unless you have washed your hands first. ?? Cover your mouth when you sneeze or cough: Cough into a tissue or your shirtsleeve so you do notspread germs. ?? Clean shared items: Clean table surfaces, doorknobs, and light switches with a germ-killing dry cleaner helper. Do not share towels, silverware, and dishes with people who are sick. Wash bed sheets, towels, silverware, and dishes with soap and water. ?? Wear a face mask: Wear a mask over your mouth and nose if you have the flu or are near anyone who has the flu. Ask where to buy single-use masks. ?? Stay home if you are sick: Stay away from others as much as possible while you recover. ?? Influenza vaccine: This vaccine helps prevent influenza (flu). Everyone older than age 6 months should get a yearly influenza vaccine. Get the vaccine as soon as it is available, usually in June or July each year. Contact your primary healthcare provider if: ?? Your symptoms get worse. ?? You have new symptoms, such as muscle pain or weakness. ?? You have questions or concerns about your condition or care. Return to the emergency department if: ?? You are dizzy, or you are urinating less or not at all. ?? You have a seizure. ?? You have a headache with a stiff neck, and you feel very tired or confused. ?? You have trouble breathing, and your lips look purple or blue. ?? You have new pain or pressure in your chest. ?? 2013 [employer]. Information is for End User's use only and may not be sold, redistributed or otherwise used for commercial purposes. All illustrations and images included in CareNotes?? are the copyrighted property of the [employer] or [employer]. The above information is an educational paraprofessional only. It is not intended as medical [...] Office Visit [facility] - [address] [address] Damien Cárdenas, SYRUP FILTERER [address] [place], [place] [id number] documented as of this encounter Procedures Procedure Name Priority Date/Time Associated Diagnosis Comments POCT INFLUENZA A/B Routine 12/04/2015 9: 36 AM EDT Influenza-like illness documented in this encounter Results * POCT Influenza A/B (12/04/2015 9:36 AM EDT) Rapid Influenza A Ag Negative Negative Rapid Influenza B Ag Negative Negative 12/04/2015 9:36 AM EDT Paty Sauceda SYRUP FILTERER POINT OF CARE TEST ORDERABL ES Final Result documented in this encounter Visit Diagnoses Diagnosis Influenza-like illness- Primary Cough documented in this encounter Care Teams Field Operations Supervisor Relationship Specialty Start Date End Date System, Provider Not In PCP - General 11/17/14 11/13/17 documented as of this encounter
--- OUTSIDE RECORDS SUMMARY | 2024-10-10 22:53 | XMS_ITS | Encounter Summary ---
Author Organization [facility] Address [address] [place] [address] Care Team Providers Care Career Coach Name Role Phone None, Physician Primary Care Provider Unavailabl e Reason for Visit * Auth/Cert - Closed Specialty Diagnoses / Procedures Referred By Moshe t Referred To Contact Diagnoses CERIVCAL STENOSIS Procedures ANTERIOR CERVICAL FUSION W/INST Referral ID Status Reason Start Date Expiration Date Visits Re quested Visits Authorized [id number] Closed 1 1 Encounter Details Date Type Department Care Team (Late st Contact Info) Description 02/16/2013 7:30 AM EDT - 02/16/2013 10:30 AM EDT Surgery [facility] Periop Services [address] [place] [address] [place] [address] [place] [address] ANTERIOR CERVICAL FUSION WITH INST Social History Tobacco Use Types Packs/Day Years [...] Sign Reading Time Taken Comments Blood Pressure 121/67 02/16/2013 10:30 AM EDT Pulse 91 02/16/2013 10:30 AM EDT Temperature 36.2 ??C (97.2 ??F) 02/16/2013 10:13 AM E DT Respiratory Rate 14 02/16/2013 10:30 AM EDT Oxygen Saturation 100% 02/16/2013 10:30 AM EDT Inhaled Oxygen Concentration - - [...] cannot be sent through Care Everywhere. * CARET[employer] SYSTEM - CERVICAL SPINAL STENOSIS (DISCHARGE CARE) ([place]) documented in this encounter Medications at Time [...] clean and dry Bandage changed D/C summary #[id number] Rx: Dilaudid 2mg q12 #30 * Alba Brooks RN - 02/17/2013 7:14 PM EDT Spoke to patient at bedside. Pt will be going home with significant other to her 1st floor apartment. Pt is normally independent with ADL's, uses no DME, no Home Health. Per PT evaluation, home independently. 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 CAMARGO TO BS PRE-OP FOR PRE-OP HOME CARE RN/Q&A, PT OP-SITE MARKED PER DR. CAMARGO IN [...] Ulloa, PT - 02/17/2013 9:42 AM EDT [facility] Services Patient Identification: Margarita Steve is a [...] ROTATION HOME LIVING Type of Home -- H NO STEPS PRIOR FUNCTION Level of [place] Independent with ADLs;Independent with bed mobility/transfers;Independent with [...] W/MD PLAN Comment D/C Pt HOME Camille Ulloa PT * Nurse - Zulay Ceja, BELINDA - 02/16/2013 3:53 PM EDT PT RATED [...] Note Margarita Steve 52 yr/o 1960 male [id number] 02/16/2013 Surgeon(s) and Role: * Shady Camargo MD - Primary Pre-operative Diagnosis Code: 723.0; 723.4; 722.0 Pre-operative Diagnosis Free Text: CERIVCAL STENOSIS Post-operative Diagnosis: same Findings/Complications: Dictation [id number] Description of procedure: Procedure(s) and Anesthesia Type: * ANTERIOR CERVICAL FUSION W/INST - General ACDF C4-7 with Harms cage and Eastern Shoshone plate Specimens: none Estimated Blood Loss:500cc Shady Camargo 02/16/2013 * Operative Report - Shady Camargo MD - 02/16/2013 10:05 AM EDT OPERATIVE/PROCEDURE REPORT FACILITY: [facility] UNIT/AGE/GENDER: 2E IN 52Y M PATIENT NAME/: MARGARITA STEVE 1960 UNIT NUMBER: [id number] DATE OF OPERATION(S)/PROCEDURE(S): 02/16/2013 SURGEON(S): Shady Camargo Jr., M.D. INCOMING INSPECTOR(S): [employer] S.[employer] PREOPERATIVE DIAGNOSES: 1. Cervical stenosis, 723.0. 2. Upper extremity radiculopathy, 723.4. 3. Disc herniations at C4-5, C5-6 and C6-7, 722.0 x3. POSTOPERATIVE DIAGNOSES: Same. PROCEDURE(S) PERFORMED: 1. Partial corpectomy, C5, 80830. 2. Partial corpectomy, C6, 16396. 3. Arthrodesis, C4-5, 05201. 4. Arthrodesis, C6-7, 56065. 5. Placement of Eastern Shoshone plate, C4-7, 64120. 6. Placement of 40 millimeter Harms titanium surgical mesh vertebral body replacement device, 97141. 7. Autologous bone graft for arthrodesis, 72577. 8. Fluoroscopy greater than one hour, 47905-32. ESTIMATED BLOOD LOSS: 500 milliliters. COMPLICATION(S): None. [...] Once the cage was in place an Eastern Shoshone plate approximately 48 millimeters was affixed to [...] the Recovery Room. SHADY CAMARGO JR., M.D. /[facility] Job I.[place]. [id number] COPY TO: PRELIMINARY - SIGNED COPY IS [...] Office Visit [facility] [place] [address] [place] [address] Damien Cárdenas, DEPUTY ASSESSOR [address] [place] [address] documented as of this encounter [...] 10:00 AM EDT) Anatomical Region Laterality Modality [facility] Radiographic Imaging Narrative 02/16/2013 10:31 AM EDT [...] BLOOD ORDERABLES Final Resul t [facility] RALS POC INTERFACE [address] [place] [address] documented in this encounter Visit Diagnoses Not on filedocumented in this encounter Administered Medications Inactive Administered Medications - up to 3 most recent administrations Medication Order MAR Action Action Date Dose Rate Site gelatin adsorbable (GELFOAM) sponge Intra-op PRN, Starting on Tue02/16/13 at 0807, Until Tue02/16/13 at 1018, Intra-op, Routine Given 02/16/2013 8:07 AM EDT 1 each Other thrombin 5000 unit solution Intra-op PRN, Starting on Tue02/16/13 at 0807, Topical Use Only., Until Tue02/16/13 at 1018, Intra-op, Routine Given 02/16/2013 8:07 AM EDT 10,000 Units Other documented in this encounter Active and Recently [...] Routine 1330 (Not Given - Provider: Zulay Ceaj RN - Reason: Other)2004 (Given - Provider: Kayce Hernandez RN) 0749 (Given - Provider: Mee Fuller RN)1926 (Given - Provider: Venessa Mcmillan RN) 0739 (Given - Provider: Mee Fuller RN) [...] 1334, Routine 1600 (Given - Provider: Zulay Ceja RN)2004 (Given - Provider: Kayce Hernandez RN) 1207 (Given - Provider: Mee Fuller RN - Comment: PAIN LEVEL 8.)1926 (Given - Provider: Venessa Mcmillan RN) HYDROmorphone HCl PF (DILAUDID) injection 1-2 mg [...] 1116 (Given - Provider: Mee Fuller RN) HYDROmorphone pf (DILAUDID) injection 0.5 mg (CANCELED)(Linked [...] 1334, Routine 1328 (Given - Provider: Zulay Ceja RN)1813 (Given - Provider: Zulay Ceja RN)2211 (Given - Provider: Kayce Hernandez RN) 0313 (Given - Provider: Venessa Mcmillan RN)0749 (Given - Provider: Mee Fuller RN - Comment: PAIN LEVEL 8. LEFT ARM DOWN TO HAND.)1454 (Given - Provider: Mee Fuller RN - Comment: PAIN LEVEL 8.)2053 (Given - Provider: Venessa Mcmillan RN) 0100 (Given - Provider: Venessa Mcmillan RN)0617 (Given - Provider: Venessa Mcmillan, BELINDA)1018 (Given - Provider: Mee Fuller RN - Comment: PAIN LEVEL 8.) morphine injection 2-4 mg (CANCELED)(Linked Group 3) 2-4 mg, Intravenous, Every 5 min PRN, Severe pain, PL 7 to 10 (Maxium Cumulative Dose 30 mg), Starting on Tue02/16/13 at 1023, 1 mL, Until Tue02/16/13 at 1252, PACU, Routine 1027 (See Alternative - Provider: Georgi Tubbs RN)1040 (See Alternative - Provider: Georgi Tubbs, RN)1115 (See Alternative - Provider: Georgi Tubbs, RN)1120 (See Alternative - Provider: Georgi Tubbs, RN)1133 (Given - Provider: Georgi Tubbs, RN) ondansetron (ZOFRAN) injection 4 mg (COMPLETED) 4 mg, Intravenous, Every 4 hours PRN, Nausea, Vomiting, once with Dilaudid before discharge home, Starting on 02/18/13 at 1056, For 1 dose, 2 mL, Until 02/18/13 at 1116, Routine [...] at 1148, Shake Well., 30 mL, Until Tue02/18/13 at 1334, Post-op, Routine And bisacodyl (DULCOLAX) [...] Routine documented in this encounter Care Teams Career Coach Relationship Specialty Start Date End Date None, Physician PCP - General 05/24/12 01/23/14 documented as of this encounter
--- OUTSIDE RECORDS SUMMARY | 2024-10-10 22:53 | XMS_ITS | Encounter Summary ---
Author Organization [facility] Address [address] [place] [address] Care Team Providers Care Material Control Specialist Name Role Phone Lori Muniz MD Primary Care Provider [phone] Encounter Details Date Type Department Care Team (Late st Contact Info) Description 01/24/2014 10:41 AM EDT - 01/24/2014 11:59 PM EDT Hospital Encounter [facility] [address] [place] [address] Jane Chang MD [address] [address] Discharge Disposition: Home or Self Care Social [...] (six) hours as needed for Wheezing . lisinopril-hydroc hlorothiazide (PRINZIDE,ZESTORE TIC) 20-25 MG per tablet Take 1 tablet by mouth daily. HYDROcodone-aceta minophen (NORCO 10-325) 10-325 MG per tablet Take 1 tablet by mouth every 6 (six) hours as needed. 6 oseltamivir (TAMIFLU) 75 MG capsuleIndication s:Influenza Take 1 capsule (75 mg total) by mouth 2 (two) times daily. 10 capsule 0 09/22/2012 2 tadalafil (CIALIS) 20 MG tabletIndications :Erectile Dysfunction Take 1 tablet (20 mg total) by mouth daily as needed for Erectile Dysfunction. 10 tablet 0 08/04/2013 2 traZODone (DESYREL) 100 MG tablet Take 0.5 tablets (50 mg total) by mouth nightly as needed for Sleep. 30 tablet 0 08/04/2013 2 documented as of this encounter Plan of Treatment Upcoming Encounters Date Type Department Care Team (Late st Contact Info) Description 01/24/2025 1:40 PM EDT Office Visit [address] [address] Damien Cárdenas, TANG [address] [place] [address] documented as of this encounter Procedures Procedure Name Priority Date/Time Associated Diagnosis Comments EHS-HEPATITIS B SURFACE ANTIGEN Routine 01/24/2014 10:52 AM EDT VITAMIN D 25 HYDROXY Routine 01/24/2014 10:52 AM EDT CBC W/DIFF Routine 01/24/2014 10:52 AM EDT C3 COMPLEMENT Routine 01/24/2014 10:52 AM EDT C4 COMPLEMENT Routine 01/24/2014 10:52 AM EDT LALA CASCADE Routine 01/24/2014 10:52 AM EDT URIC ACID Routine 01/24/2014 10:52 AM EDT BASIC METABOLIC PANEL (BMP) Routine 01/24/2014 10:52 AM EDT documented in this encounter Results * LALA Screen/Titer (01/24/2014 10:52 AM EDT) LALA Screen NEGATIVE NEGATIVE [facility] 01/24/2014 10:5 2 AM EDT 01/24/2014 10:53 AM EDT us Jane Chang MD LAB BLOOD ORDERABLES Final R esult Performing Organization Address City/[facility]/ZIP Co de Phone Number [facility]) [facility] [address] [place] [address] * (ABNORMAL) C4 Complement (01/24/2014 10:52 AM EDT) Pathologist [facility] C4 Complement 50(H) 16 - 47 mg/dL [facility] 01/24/2014 10:5 2 AM EDT 01/24/2014 10:53 AM EDT us Jane Chang MD [facility]ET[facility] MALIGNANCY LABS Final Result Performing Organization Address City/[facility]/ZIP Co de Phone Number [facility] [address] [place] [address] * C3 Complement (01/24/2014 10:52 AM EDT) Pathologist [facility] C3 Complement 160 88 - 201 mg/dL [facility] 01/24/2014 10:5 2 AM EDT 01/24/2014 10:53 AM EDT us Jane Chang MD GENETIC [facility] MALIGNANCY LABS Final Result Performing Organization Address City/[facility]/ZIP Co de Phone Number [facility] [address] [place] [address] * (ABNORMAL) Vitamin D 25 Hydroxy (01/24/2014 10:52 AM EDT) Pathologist [facility] Vitamin D 25 Hydroxy 8(L) >=32 ng/mL [facility] Comment:KLINE BW. J Nutr. 2 005 Feb; 135(2); 317-22 01/24/2014 10:5 2 AM EDT 01/24/2014 10:53 AM EDT Jane Chang MD LAB BLOOD ORDERABLES Final R esult Performing Organization Address City/[facility]/ZIP Co de Phone Number [facility] [address] [place] [address] * EHS-Hepatitis B Surface Antigen (01/24/2014 10:52 AM EDT) [facility] Hepatitis B Surface Ag NEGATIVE NEGATIVE [facility] ([facility]) Comment:Negative 01/24/2014 10:5 2 AM EDT 01/24/2014 10:53 AM EDT us Jane Chang MD LAB BLOOD ORDERABLES Final R esult Performing Organization Address [facility] Co de Phone Number [facility] ([id number]) [address] [place] [address] * (ABNORMAL) Uric Acid (01/24/2014 10:52 AM EDT) [facility] Uric Acid 10.8(H) 2.5 - 8.5 mg/dL [facility] ([id number]) 01/24/2014 10:5 2 AM EDT 01/24/2014 10:53 AM EDT Narrative [facility] - 01/24/2014 11:07 AM EDT PT COULD NOT VOID AND DID NOT WANT TO WAIT AND TRY us Jane Chang MD LAB BLOOD ORDERABLES Final R esult Performing Organization Address City/[facility] Co de Phone Number [facility]) [facility] ([id number]) [facility] [place] [address] * (ABNORMAL) Basic Metabolic Panel (BMP) (01/24/2014 10:52 AM EDT) Sodium 139 137 - 145 mmol/L [facility] (469[address]) Potassium 4.2 3.5 - 5.1 mmol/L [facility] ([address]676) Chloride 102 98 - 107 mmol/L [facility] (53313) CO2 29 22 - 30 mmol/L [facility] (03100) Glucose 90 74 - 106 mg/dL [facility] ([facility]) BUN 57(H) 7 - 20 mg/dL [facility] (87875) Creatinine 2.3(H) 0.7 - 1.5 mg/dL [facility] ([facility]) Calcium 8.4 8.4 - 10.2 mg/dL [facility] ([facility]) 01/24/2014 10:5 2 AM EDT 01/24/2014 10:53 AM EDT Narrative [facility] - 01/24/2014 11:07 AM EDT PT COULD NOT VOID AND DID NOT WANT TO WAIT AND TRY us Jane Chang MD LAB BLOOD ORDERABLES Final R esult [facility]) [facility] ([facility]) [place] [id number] * (ABNORMAL) CBC w/Diff (01/24/2014 10:52 AM EDT) Pathologist [facility] WBC 7.65 4.5 - 11.0 10*3/uL [facility] (1955[address]) RBC 4.19(L) 4.5 - 5.9 10*6/uL [facility] ([facility]) HGB 13.6 13.5 - 17.5 g/dL [facility] ([facility]) HCT 38.7(L) 41.0 - 53.0 % [facility] ([facility]) MCV 92.4 80.0 - 100.0 fL [facility] ([facility]) MCH 32.5 26.0 - 34.0 pg [facility] (85563) MCHC 35.1 31.0 - 37.0 g/dL [facility] (64575) RDW 12.6 12.0 - 16.8 % [facility] (39699) PLT 241 140 - 440 10*3/uL [facility] (90690) MPV 10.5 6.7 - 10.8 fL [facility] (53250) NEUT% 52 45 - 80 % [facility] (15522) Lymph% 34 15 - 50 % [facility] (14506) Peñuelas% 7 0 - 15 % [facility] (07943) EOS% 6 0 - 7 % [facility] (98905) BASO% 1 0 - 2 % [facility] (25807) IG% 0 0 % [facility] (29831) NRBC% 0 0 - 0 /100 WBC [facility] (31315) NEUT# 3.99 2.0 - 8.8 [facility] (42059) Lymph# 2.61 0.7 - 5.5 [facility] (41865) Peñuelas# 0.53 0.0 - 1.7 [facility] (78760) EOS# 0.47 0.0 - 0.8 [facility] (71072) Baso# 0.04 0.0 - 0.2 [facility] (59745) Immature GRAN# 0.01 <1 10*3/uL [facility] ([facility]) 01/24/2014 10:5 2 AM EDT 01/24/2014 10:53 AM EDT us Jane Chang MD LAB BLOOD ORDERABLES Final R esult [facility] [place] [address] documented in this encounter Visit Diagnoses Not on filedocumented in this encounter Care Teams Material Control Specialist Relationship Specialty Start Date End Date Lori Muniz MD PCP - General Family Medicine 01/24/14 11/16/14 documented as of this encounter
--- OUTSIDE RECORDS SUMMARY | 2024-10-10 22:53 | XMS_ITS | Encounter Summary ---
Author Organization [facility] [address] [place] [address] Care Team Providers Care Deputy County Attorney Name Role Phone None, Physician Primary Care Provider Unavailabl e Reason for Visit * Reason Comments Fever x tow days Headache Cough Shortness of Breath Encounter Details Date Type Department Care Team (Late st Contact Info) Description 09/22/2012 9:45 AM EST Office Visit [facility] - [address] [address] Devon Haskins MD [address] [address] Fever (Primary Dx); Influenza; Asthma Social History Tobacco Use Types Packs/Day Years Used Date Smoking Tobacco: Never Assessed Sex and Gender Information Value Date Recorded Sex Assigned at Not on file Legal Sex Male 4:52 PM EST Gender Identity Not on file Sexual Orientation Not on file documented as of this encounter Last Filed Vital Signs Vital Sign Reading Time Taken Comments Blood Pressure 152/96 09/22/2012 10:35 AM EST Pulse 98 09/22/2012 10:35 AM EST Temperature 37.7 ??C (99.9 ??F) 09/22/2012 10:[address] Respiratory Rate 18 09/22/2012 10:35 AM EST Oxygen Saturation 97% 09/22/2012 10:35 AM EST Inhaled Oxygen Concentration - - Weight 90.7 kg (200 lb) 09/22/2012 10:35 AM EST Height 172.7 cm (5' 8 ) 09/22/2012 10:35 AM EST Body Mass Index 30.41 09/22/2012 10:35 AM EST documented in this encounter Patient Instructions * Patient Instructions* Devon Haskins MD - 09/22/2012 11:42 AM EST meds as directed. Proper hand washing. Wear a face mask while in public. No contact with others forthe next 3-5 days. Fluids and rest. Ibuprofen for fever. documented in this encounter Progress Notes * Devon Haskins MD - 09/22/2012 11:21 AM EST Subjective: Patient ID: Yovanny Steve is a 52 yr/o male. Fever This is a new problem. The current episode started yesterday. The maximum temperature noted was 100to 100.9 F. Associated symptoms include congestion, coughing and headaches. Headache This is a new problem. The current episode started yesterday. Associated symptoms include coughing and a fever. Cough This is a new problem. The current episode started yesterday. Associated symptoms include a fever, headaches and shortness of breath. Shortness of Breath This is a new problem. The current episode started yesterday. Associated symptoms include a fever and headaches. The following portions of the patient's history were reviewed and updated as appropriate: allergies, current medications, past family history, past medical history, past social history, past surgicalhistory and problem list. Review of Systems Constitutional: Positive for fever, activity change, appetite change and fatigue. HENT: Positive for congestion. Respiratory: Positive for cough and shortness of breath. Neurological: Positive for headaches. Objective: Physical Exam Vitals reviewed. Constitutional: He is oriented to person, place, and time. He appears well- developed and well-nourished. He is cooperative. He has a sickly appearance. HENT: Head: Normocephalic and atraumatic. Right Ear: Tympanic membrane, external ear and ear canal normal. Left Ear: Tympanic membrane, external ear and ear canal normal. Nose: Nose normal. Mouth/Throat: Uvula is midline. Posterior oropharyngeal erythema present. Eyes: Conjunctivae and EOM are normal. Pupils are equal, round, and reactive to light. Cardiovascular: Normal rate, regular rhythm and normal heart sounds. Pulmonary/Chest: Effort normal. He has wheezes. He has rhonchi. Neurological: He is alert and oriented to person, place, and time. Skin: Skin is warm and dry. Psychiatric: He has a normal mood and affect. Judgment normal. Assessment and Plan: Yovanny was seen today for fever, headache, cough and shortness of breath. Diagnoses and associated orders for this visit: Fever - POCT Influenza A/B - albuterol-ipratropium (DUO-NEB) 0.5-2.5 mg/3 mL nebulizer 3 mL; Take 3 mLs by nebulization once. Influenza Asthma - methylPREDNISolone (MEDROL, DAVID,) 4 MG tablet; follow package directions documented in this encounter Plan of Treatment Upcoming Encounters Date Type Department Care Team (Late st Contact Info) Description 01/24/2025 1:40 PM EDT Office Visit [facility] - [address] [place] [address] Damien Cárdenas, PULP BEATER [address] [place] [address] documented as of this encounter Procedures Procedure Name Priority Date/Time Associated Diagnosis Comments POCT INFLUENZA A/B Routine 09/22/2012 11 :14 AM EST Fever documented in this encounter Results * (ABNORMAL) POCT Influenza A/B (09/22/2012 11:14 AM EST) Rapid Influenza A Ag Negative Negative [facility]/TED Rapid Influenza B Ag Positive(A) Negative [facility]/ICC 09/22/2012 11:1 4 AM EST Devon Haskins MD POINT OF CARE TEST ORDERAB LES Final Result [facility]TED [address] [place] [address], [address] [place] [address] documented in this encounter Visit Diagnoses Diagnosis Fever- Primary Fever, unspecified Influenza Influenza with other respiratory manifestations Asthma Unspecified asthma documented in this encounter Administered Medications Inactive Administered Medications - up to 3 most recent administrations Medication Order MAR Action Action Date Dose Rate Site albuterol-ipratropium (DUO-NEB) 0.5-2.5 mg/3 mL nebulizer 3 mL 3 mL, Nebulization, Once, On Tue09/22/12 at 1130, For 1 dose, 3 mL, RoutineIndications:Fever Given 09/22/2012 11:29 AM EST 3 mLs Other documented in this encounter Care Teams Deputy County Attorney Relationship Specialty Start Date End Date None, Physician PCP - General 05/24/12 01/23/14 documented as of this encounter
--- OUTSIDE RECORDS SUMMARY | 2024-10-10 22:53 | XMS_ITS | Encounter Summary ---
Author Organization Formerly [facility] Address [address] [place] [address] Care Team Providers Care Beauty Specialist Name Role Phone None, Physician Primary Care Provider Unavailabl e Reason for Visit * Reason Comments Medication Refill PT STATES HERE FOR A MEDICATION REFILL. Encounter Details Date Type Department Care Team (Late st Contact Info) Description 08/04/2013 3:30 PM EST Office Visit [facility] - [address] [phone] [place] [address] [place] [address] Sleep disturbance, unspecified (Primary Dx); ED (erectile dysfunction) Social History Tobacco Use Types Packs/Day Years [...] Sign Reading Time Taken Comments Blood Pressure 138/101 08/04/2013 3:42 PM EST Pulse 75 08/04/2013 3:42 PM EST Temperature 36.7 ??C (98.1 ??F) 08/04/2013 3:42 PM ES T Respiratory Rate 18 08/04/2013 3:42 PM EST Oxygen Saturation 99% 08/04/2013 3:42 PM EST Inhaled Oxygen Concentration - - Weight 87.5 kg (193 lb) 08/04/2013 3:42 PM EST Height 175.3 cm (5' 9 ) 08/04/2013 3:42 PM EST Body Mass Index 28.5 08/04/2013 3:42 PM EST documented in this encounter Functional Status * Patient's Vision Adequate to Safely Complete Daily Activities Answer Date of Assessment Author Yes 02/16/2013 1:00 PM EDT Delmer Ceja RN documented as of this encounter Patient Instructions * Patient Instructions* Andrea Phillip MD - 08/04/2013 5:29 PM EST Your prescriptions were electronically sent to your pharmacy. Follow up with your PCP for additional prescriptions. documented in this encounter Progress Notes * Andrea Phillip MD - 08/04/2013 5:22 PM EST Patient Identification: Name: Yovanny Steve Age: 53 yr/o Gender: male : 1960 PCP: None,Nophysician Chief Complaint: Yovanny Steve is presenting today for Medication Refill . 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 Marie. Needs refills on some of his medications. Has problems with sleep disturbance and ED. History, Medications, Allergies, and Review of Symptoms: Past Medical History: Past Medical History Diagnosis Date ??? Sleep apnea ??? CPAP (continuous positive airway pressure) dependence ??? Degenerative disc disease, cervical ??? Cervical stenosis of spine ??? Asthma ??? Hypertension ??? ED (erectile dysfunction) Past Surgical History: Past Surgical History Procedure Date ??? Shoulder surgery 2010 ??? Knee surgery 2011 FOR TORN LIGAMENT ??? Back surgery 2006 ??? Anterior cervical discectomy w/ fusion C6 - C8 ??? Lumbar disectomy L5 - S1 Current Medications: Outpatient Prescriptions as of 08/04/2013 Medication Sig Dispense Refill ??? albuterol (PROVENTIL HFA;VENTOLIN HFA) 108 (90 BASE) MCG/ACT inhaler Inhale 2 puffs into the lungs as needed. ??? lisinopril-hydrochlorothiazide (PRINZIDE,ZESTORETIC) 20-25 MG per tablet Take 1 tablet by mouthdaily. ??? traZODone (DESYREL) 100 MG tablet Take 100 mg by mouth as needed. ??? HYDROcodone-acetaminophen (NORCO 10-325) 10-325 MG per tablet Take 1 tablet by mouth every 6 (six) hours as needed. Allergies: Allergies as of 08/04/2013 Review Complete On: 08/04/2013 By: Andrea Phillip MD No Known Allergies Family Medical History: Family History Problem Relation Age of Onset ??? Other Mother pneumonia ??? Cancer, Other or Unknown Type Father prostate Social History: History Substance Use Topics ??? Smoking status: Never Smoker ??? Smokeless tobacco: Never Used ??? Alcohol Use: Yes OCCASIONAL Review of Symptoms: Review of Systems Constitutional: Negative for fever and chills. HENT: Negative for ear pain, congestion and sore throat. Eyes: Negative for blurred vision and redness. Respiratory: Negative for cough, sputum production and shortness of breath. Cardiovascular: Negative for chest pain, palpitations and leg swelling. Gastrointestinal: Negative for nausea, vomiting and diarrhea. Genitourinary: Negative for dysuria and frequency. ED issues. Musculoskeletal: Negative for myalgias, back pain and falls. Skin: Negative for itching and rash. Neurological: Negative for dizziness, seizures and weakness. Endo/Heme/Allergies: Negative for polydipsia. Does not bruise/bleed easily. Psychiatric/Behavioral: The patient is nervous/anxious and has insomnia. All other systems reviewed and are negative. Physical Exam: Filed Vitals: 08/04/13 1542 BP: 138/101 Pulse: 75 Temp: 98.1 ??F (36.7 ??C) TempSrc: Oral Resp: 18 Height: 5' 9 (1.753 m) Weight: 193 lb (87.544 kg) SpO2: 99% Physical Exam Vitals reviewed. Constitutional: He is oriented to person, place, and time. He appears well- developed and well-nourished. HENT: Head: Normocephalic. Eyes: Conjunctivae normal are normal. Pupils are equal, round, and reactive to light. Neck: Normal range of motion. Neck supple. No thyromegaly present. Cardiovascular: Normal rate and regular rhythm. Exam reveals no gallop. No murmur heard. Carotids without bruits bilaterally Pulmonary/Chest: Effort normal and breath sounds normal. Musculoskeletal: Normal range of motion. He exhibits no edema. Lymphadenopathy: He has no cervical adenopathy. Neurological: He is alert and oriented to person, place, and time. Skin: Skin is warm and dry. Psychiatric: He has a normal mood and affect. Thought content normal. Assessment/Plan: Diagnoses and orders/medications from this encounter 1. Sleep disturbance, unspecified 2. ED (erectile dysfunction) Encounter Medications Pending Prescriptions Disp Refills ??? traZODone (DESYREL) 100 MG tablet 30 tablet 0 Sig: Take 0.5 tablets (50 mg total) by mouth nightly as needed for Sleep. ??? tadalafil (CIALIS) 20 MG tablet 10 tablet 0 Sig: Take 1 tablet (20 mg total) by mouth daily as needed for Erectile Dysfunction. Results this visit (if any) No results found for this visit on 08/04/13. Follow-up (if any) Patient Instructions Your prescriptions were electronically sent to your pharmacy. Follow up with your PCP for additional prescriptions. documented in this encounter Plan of Treatment Upcoming Encounters Date Type Department Care Team (Late st Contact Info) Description 01/24/2025 1:40 PM EDT Office Visit [facility] - [address] [phone] Damien Cárdenas, HOURLY CAREGIVER [address] [place] [address] documented as of this encounter Visit Diagnoses Diagnosis Sleep disturbance, unspecified- Primary ED (erectile dysfunction) Impotence of organic origin documented in this encounter Care Teams Beauty Specialist Relationship Specialty Start Date End Date None, Physician PCP - General 05/24/12 01/23/14 documented as of this encounter
--- OUTSIDE RECORDS SUMMARY | 2024-10-10 22:53 | XMS_ITS | Encounter Summary ---
Author Organization [facility] Address [address] [place] [address] Care Team Providers Care Rv Service Technician Name Role Phone Keanu Brooks DO Primary Care Provider [phone] Reason for Visit * Reason Comments Follow-up CPAP. Need supplies. [facility]. [place] is 6. Encounter Details Date Type Department Care Team (Late st Contact Info) Description 01/14/2020 11:00 AM EDT Office Visit [facility] [address] [place] [phone] Rigo Sultana MD Obstructive sleep apnea syndrome (Primary Dx) Social [...] have Coronavirus / COVID-19? No / Unsure 01/14/2020 10:46 AM EDT documented as of this encounter Last Filed Vital Signs Vital Sign Reading Time Taken Comments Blood Pressure 118/70 01/14/2020 11:08 AM EDT Pulse 82 01/14/2020 11:08 AM EDT Temperature 36.5 ??C (97.7 ??F) 01/14/2020 11:08 AM E DT Respiratory Rate 16 01/14/2020 11:08 AM EDT Oxygen Saturation 98% 01/14/2020 11:08 AM EDT Inhaled Oxygen Concentration - - Weight 90.9 kg (200 lb 6.4 oz) 01/14/2020 11:08 AM EDT Height 175.3 cm (5' 9 ) 01/14/2020 11:08 AM EDT Body Mass Index 29.59 01/14/2020 11:08 AM EDT documented in this encounter Functional Status * Patient's Vision Adequate to Safely Complete Daily Activities Answer Date of Assessment Author Yes 02/16/2013 1:00 PM EDT Delmer Ceja RN documented as of this encounter Progress Notes * Rigo Sultana MD - 01/14/2020 11:18 AM EDT Patient Identification: Name: Yovanny Steve Age: 59 yr/o Gender: male : 1960 PCP/Referring Physician(s): PCP: Keanu Brooks DO Consultation requested by: Physician None Chief Complaint: Yovanny Steve is a 59 yr/o male patient who is presenting today with a chief complaint of Follow-up (CPAP. Need supplies. [facility]. [employer] is 6.) . History of Present Illness: We saw Yovanny Steve today in follow for their sleep apnea. We were not able to review their compliance download. However, based on their subjective reported use they appear to be complaint with therapyAND IS BENEFITING FROM CPAP USE. Patient was advised to continue CPAP as prescribed. Sleep hygiene techniques and driving precautions were reviewed. We discussed getting a new mask as often as their insurance company will allow as well as making sure any surgical staff is aware of the diagnosis prior to the procedure. We also discussed health risks associated with untreated sleep apnea such as cardiovascular consequences and the potential for motor vehicle accidents.We plan to continue to follow to assess ongoing compliance and response to therapy. Review of Symptoms: Review of Systems: Constitutional: No fever, no chills, no night sweats, no weight loss Eyes No acute visual complaints, no injection ENT/oropharynx: No congestion, no pharyngeal lesions Cardiovascular: No chest pains or anginal equivalents, no palpitations Respiratory: As per HPI Gastrointestinal: No diarrhea, no constipation, no blood in stool, no GERD Genitourinary: No dysuria, no hematuria, no nocturia Neurological: No focal motor deficit, no sensory abnormality Musculoskeletal: No significant weakness, no tenderness, no arthralgias Integument: Negative Allergies and Medications Allergies: Allergies as of 01/14/2020 Review status set to Review Complete by You at 11:18 AM No Known Allergies Current Medications: Outpatient Medications as of 01/14/2020 Medication Sig Dispense Refill ??? albuterol (PROVENTIL [...] RINSE MOUTH AFTER EACH USE 3 ??? fexofenadine (GABBIE) 180 MG tablet TK 1 T PO QD PRN ??? fluticasone (FLONASE) 50 MCG/ACT nasal spray [...] nightly as needed forSleep. 30 tablet 0 Physical Exam: BP 118/70 Pulse 82 Temp 97.7 ??F (36.5 ??C) (Temporal) Resp 16 Ht 5' 9 (1.753 m) Wt 200 lb 6.4 oz (90.9 kg) SpO2 98% BMI 29.59 kg/m?? Exam: GEN: No significant distress HEENT: pupils equal, round and reactive to light, extraocular movements intact, conjunctiva not injected bilaterally, nasopharyngeal mucosa moist, no lesions appreciated, Mallampati score III (soft and hard palate and base of uvula visible), nasal congestion No NECK: Supple, no jugular venous distention, no thyromegaly, no bruits appreciated LYMPH: No anterior/posterior cervical or supraclavicular adenopathy LUNGS: clear to auscultation bilaterally CV Regular Rate and Rythm, No Significant Murmur ABD: soft, not tender, not distended EXT: no cyanosis, clubbing, w/o edema SKIN: warm, dry, intact NEURO: alert and oriented x 3, motor functions grossly intact, CN II-XII grossly intact Assessment/Plan: Assessment Yovanny was seen today for follow-up. Diagnoses and all orders for this visit: Obstructive sleep apnea syndrome We saw Yovanny Steve today in follow for their sleep apnea. We were not able to review their compliance download. However, based on their subjective reported use they appear to be complaint with therapyAND IS BENEFITING FROM CPAP USE. Patient was advised to continue CPAP as prescribed. Sleep hygiene techniques and driving precautions were reviewed. We discussed getting a new mask as often as their insurance company will allow as well as making sure any surgical staff is aware of the diagnosis prior to the procedure. We also discussed health risks associated with untreated sleep apnea such as cardiovascular consequences and the potential for motor vehicle accidents.We plan to continue to follow to assess ongoing compliance and response to therapy. Return in about 1 year (around 01/13/2021). Rigo Sultana MD 01/14/2020 11:20 AM documented in this encounter Plan of Treatment Upcoming Encounters Date Type Department Care Team (Late st Contact Info) Description 01/24/2025 1:40 PM EDT Office Visit [facility] - [address] [phone] Damien Cárdenas APRN [address] [place] [address] documented as of this encounter Visit Diagnoses Diagnosis Obstructive sleep apnea syndrome- Primary Obstructive sleep apnea (adult) (pediatric) documented in this encounter Care Teams Rv Service Technician Relationship Specialty Start Date End Date Keanu Brooks DO PCP - General Family Medicine 01/14/20 documented as of this encounter
--- OUTSIDE RECORDS SUMMARY | 2024-10-10 22:53 | XMS_ITS | Encounter Summary ---
Author Organization [facility] Address [address] [place] [address] Care Team Providers Care Creel Selector Name Role Phone System, Provider Not In Primary Care Provider Un available Reason for Visit * Reason Comments FOLLOW UP WORK RELEASE Encounter Details Date Type Department Care Team (Late st Contact Info) Description 11/24/2014 9:15 AM EDT Office Visit [facility] - [address] [phone] Jeferson Gage, VICE PRESIDENT NETWORK [address] [facility] [address] [place] [address] Well adult health check (Primary Dx) Social History Tobacco Use Types [...] Sign Reading Time Taken Comments Blood Pressure 113/78 11/24/2014 9:32 AM EDT Pulse 96 11/24/2014 9:32 AM EDT Temperature 36.9 ??C (98.4 ??F) 11/24/2014 9:32 AM ED T Respiratory Rate 16 11/24/2014 9:32 AM EDT Oxygen Saturation 97% 11/24/2014 9:32 AM EDT Inhaled Oxygen Concentration - - Weight 85.9 kg (189 lb 6.4 oz) 11/24/2014 9:32 A M EDT Height - - Body Mass Index 27.97 11/20/2014 6:52 PM EST documented in this encounter Functional Status * Patient's Vision Adequate to Safely Complete Daily Activities Answer Date of Assessment Author Yes 02/16/2013 1:00 PM EDT Delmer Ceja RN documented as of this encounter Patient Instructions * Patient Instructions* Jeferson Gage Jr., APRN - 11/24/2014 9:46 AM EDT Pt is to F/U with [facility] for evaluation for a work note to 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 Pt was seen per Provider and given a work note to Return to work on 11/23/14 but pt is adiment about needing this kind of releaseback to work. documented in this encounter Progress Notes * Jeferson Gage Jr., APRN - 11/24/2014 9:48 AM EDT Patient Identification: Name: Yovanny Steve Age: 54 yr/o Gender: male : 1960 PCP: Provider Not In System Chief Complaint: Yovanny Steve is presenting today for FOLLOW UP . History of Present Illness: HPI Comments: Seen here and I am a lot better. 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 Other This is a new problem. The current episode started today. The problem has been resolved. Nothing aggravates the symptoms. He has tried nothing for the symptoms. The treatment provided significant relief. History, Medications, Allergies, and Review of [...] S1 Current Medications: Outpatient Prescriptions as of 11/24/2014 Medication Sig Dispense Refill ??? ondansetron (ZOFRAN) 4 MG tablet Take 1 tablet by mouth every 8 (eight) hours as needed for Nausea for up to 5 days 30 tablet 0 ??? lisinopril (PRINIVIL,ZESTRIL) 10 MG tablet Take [...] tablet by mouthdaily. Allergies: Allergies as of 11/24/2014 Review Complete On: 11/24/2014 By: Jeferson Gage Jr., VICE PRESIDENT NETWORK No Known Allergies Family Medical History: Family History Problem Relation Age of Onset ??? Other Mother pneumonia ??? Cancer, Other or Unknown Type Father prostate Social History: History Substance Use Topics ??? Smoking status: Never Smoker ??? Smokeless tobacco: Never Used ??? Alcohol Use: Yes Comment: OCCASIONAL Review of Symptoms: ROS Physical Exam: BP 113/78 Pulse 96 Temp(Src) 98.4 ??F (36.9 ??C) (Oral) Resp 16 Wt 189 lb 6.4 oz (85.911 kg) SpO2 97% Physical Exam Constitutional: He is oriented to person, place, and time. He appears well- developed and well-nourished. HENT: Head: Normocephalic and atraumatic. Right Ear: External ear normal. Left Ear: External ear normal. Nose: Nose normal. Pulmonary/Chest: Effort normal. Neurological: He is alert and oriented to person, place, and time. Skin: Skin is warm and dry. Psychiatric: He has a normal mood and affect. His behavior is normal. Judgment and thought content normal. Assessment/Plan: Diagnoses and orders/medications from this encounter No diagnosis found. Encounter Medications No prescriptions requested or ordered in this encounter Results this visit (if any) No results found for this visit on 11/24/14. Follow-up (if any) Return for Followup with your PCP and call for an appointment. 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 Pt was seen per Provider and given a work note to Return to work on 11/23/14 but pt is adiment about needing this kind of releaseback to work. documented in this encounter Plan of Treatment Upcoming Encounters Date Type Department Care Team (Late st Contact Info) Description 01/24/2025 1:40 PM EDT Office Visit [facility] - [address] [phone] Damien Cárdenas APRN [address] [place] [address] documented as of this encounter Visit Diagnoses Diagnosis Well adult health check- Primary Unspecified general medical examination documented in this encounter Care Teams Creel Selector Relationship Specialty Start Date End Date System, Provider Not In PCP - General 11/17/14 11/13/17 documented as of this encounter
--- OUTSIDE RECORDS SUMMARY | 2024-10-11 13:39 | XMS_ITS | Clinical Summary ---
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 Cholo Dotson MD Active Last Documented On 7 10:00AM ; [facility] 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 - Last Documented On 03/13/2024 7:56AM ; [facility] Instructions Includes: Instructions from this encounter Education and Decision Aids were provided during visit for: Discussed maintaining health y weight Last Documented On 4 2:57PM ; [facility] Medical Equipment - Implanted Devices Includes: Current Devices No Medical Equipment Recorded Medications Includes: Medications discussed during this encounter and other current Medications Current Medications (continue as prescribed) Tylenol Extra Strength 500 MG Oral Tablet 04/30/2022 Provider: Diagnosis: Last Documented On 2 8:31AM By Sandee Jauregui ATC ; [facility] Fluticasone Propionate 50 MCG/ACT Nasal Suspension 04/2021 Provider: Diagnosis: Last Documented On 9:03AM By Paty Eagle ; [facility] ProAir HFA 108 (90 Base) MCG/ACT Inhalation Aero melvina Solution 05/26/2021 Provider: Diagnosis: Last Documented On 9:03AM By Paty Eagle ; [facility] Lisinopril-hydroCHLOROthiazide 20-25 MG Oral Tablet Provider: Diagnosis: Last Documented On 1 9:03AM By [facility] Allopurinol 300 MG Oral Tablet 05/22/2021 Provider: Diagnosis: Last Documented On 1 9:03AM By Paty Eagle ; [facility] Trazadone 50 MG Tablet 11/12/2016 Provider: Diagnosis: Last Documented On 7 8:55AM By Renetta [facility] Past Medications on file Durolane [...] Documented On 4 2:56PM ; [facility] 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 Last Documented On 4 2:56PM ; [facility] Smoking status : Former smoker 2 Last Documented On 4 2:56PM ; [facility] Current nonsmoker 06/26/2021 Last Documented On 4 2:56PM ; [facility] Tobacco non-user 06/26/2021 Last Documented On 4 2:56PM ; [facility] Alcohol use: 2 drinks or less per day Last Documented On 4 2:56PM ; [facility] Has high school diploma 06/26/2021 Last Documented On 4 2:56PM ; [facility] Marital history single 06/26/2021 Last Documented On 4 2:56PM ; [facility] 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 Last Documented On 4 2:56PM ; [facility] Not using alcohol 11/12/2016 Last Documented On 4 2:56PM ; [facility] Preference for right-handedness 11/12/19 17 Last Documented On 4 2:56PM ; [facility] Procedures and Surgical History Includes: Procedures from this encounter Procedures Code Diagnosis Performing Provider Service Location Service Date Aspir/inj Major Joint/shoulder,h ip,knee (Bilateral Procedure) Bilateral primary osteoarthritis of knee [facility] 03/09/2024 Last Documented On 4 9:02AM ; [facility] Triamcinolone Acetonide Inj Susp MDV 40MG 10 ML 10.00 unit [id number] Bilateral primary osteoarthritis of knee Donald Josue MD [facility] 03/09/2024 Last Documented On 4 9:02AM ; [facility] X-Ray Knee-4 or more View; Complete (Right) 17071 Unilateral primary osteoarthritis, right knee Donald Alfredo Josue MD [facility] 03/09/2024 Last Documented On 4 9:03AM ; [facility] X-Ray Knee-4 or more View; Complete (Left) 57244 Unilateral primary osteoarthritis, left knee Donald Alfredo Josue MD [facility] 03/09/2024 Last Documented On 4 9:03AM ; [facility] use of tobacco assessment performed 1000F Last Documented On 4 2:57PM ; [facility] a complete right knee x-rays 4 or more views was performed 81365 12403 Last Documented On 4 2:54PM ; [facility] a complete left knee x-rays 4 or more views was performed 51279 11077 Last Documented On 4 2:54PM ; [facility] Surgical History Last Updated History of rotator cuff repair left with biceps tenodesis 08/31/2023 Last Documented On 4 2:56PM ; [facility] History of total left hip replacement 08/2022 ([facility]) 04/30/2022 Last Documented On 4 2:56PM ; [facility] History of total right hip replacement ([facility]) 04/30/2022 Last Documented On 4 2:56PM ; [facility] History of back surgery 11/12/2016 Last Documented On 4 2:56PM ; [facility] History of neck surgery 11/12/2016 Last Documented On 4 2:56PM ; [facility] History of surgery of the left knee - Ar throscopy 11/12/2016 Last Documented On 4 2:56PM ; [facility] Medical History Includes: Medical History addressed during this encounter Description Last Updated History of gout 06/26/2021 Last Documented On 4 2:56PM ; [facility] Currently wearing eyeglasses 06/26/2021 Last Documented On 4 2:56PM ; [facility] Surgical history reviewed 11/12/2016 Last Documented On 4 2:56PM ; [facility] Family history reviewed 11/12/2016 Last Documented On 4 2:56PM ; [facility] History of asthma 11/12/2016 Last Documented On 4 2:56PM ; [facility] History of hypertension 11/12/2016 Last Documented On 4 2:56PM ; [facility] Past medical history reviewed 11/12/2016 Last Documented On 4 2:56PM ; [facility] Family History Includes: Family History addressed during this encounter Description Last Updated none 06/26/2021 Last Documented On 4 2:56PM ; [facility] Review of Systems Includes: Review [...] Check-Out Time Diagnosis Estab Pt New Problem Donald Josue MD [facility] 03/09/20 24 2:51PM 3:17PM Insurance Includes: Active Insurance Policies Plan Name Member ID Group # Subscriber Relationship Effect melba Dates 1 - [employer]na Medicare [id number] Yovanny Steve Self 07/20/2023 - Unknown Clinical Notes Includes: Clinical Notes from this encounter * Progress note Date Encounter Last Documented by 03/09/2024 Estab Pt New Problem Last docume nted on 03/13/2024; 7:56 AM, Donald Josue MD; [facility] Chief Complaint New CC: Bilateral knee pain. [...] Education: Has high school diploma. 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 Motor: Preference for [...] x-rays 4 or more views was performed 61733 and a complete left knee x-rays 4 or more views was performed 58764. FINDINGS: AP, lateral, PA flexion, and Merchant views of the bilateral knees are performed. Weight-bearing bilateral knee radiographs demonstrate no acute fracture dislocation. Tricompartmental degenerative changes with medial mhdg-mn-vpos collapse and slight genu varum deformity. Left [...] discussed. Assessment Bilateral knee arthritis with varus zhvu-xd-bxev collapse, left worse than right. Counseling/Education - [...] of Document cc: SHAWNA GIRALDO DO (FAX: [phone]) LC/nan
--- OUTSIDE RECORDS SUMMARY | 2024-10-11 13:39 | XMS_ITS | Clinical Summary ---
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 Cholo Dotson MD Active Last Documented On 7 10:00AM ; [facility] 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, left femur 11/13/2016 Chloo Dotson MD Active Last Documented On 7 10:00AM ; [facility] Plan of Treatment No Plan of [...] By Sandee Jauregui ATC ; [facility] Fluticasone Propionate 50 MCG/ACT Nasal Suspension [...] 8:55AM By Renetta Brown ; [facility] Medications Administered Includes: Administered Medications from [...] Effect melba Dates 1 - [employer] Medicare [id number] Yovanny Mary Ellen High Self 07/20/2023 - Unknown Clinical Notes Includes: Clinical Notes from this encounter No Clinical Notes Recorded
--- OUTSIDE RECORDS SUMMARY | 2024-10-11 13:39 | XMS_ITS | Clinical Summary ---
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 - [address] [place] [address] [facility] [address] - Last Documented On 4 11:37AM By Marjan Sandoval ; [facility] Current Medications (continue as prescribed) Tylenol Extra Strength 500 MG Oral Tablet 04/30/2022 Provider: Diagnosis: Last Documented On 2 8:31AM By Sandee Jauregui ATC ; [facility] Fluticasone Propionate 50 MCG/ACT Nasal Suspension 04/2021 Provider: Diagnosis: Last Documented On 1 9:03AM By Paty Eagle ; [facility] ProAir HFA 108 (90 [...] 8:55AM By Renetta Brown ; [facility] Medications Administered Includes: Administered Medications [...] Effect melba Dates 1 - [employer] Medicare [id number] Yovanny Chopra 07/20/2023 - Unknown Clinical Notes Includes: Clinical Notes from this encounter No Clinical Notes Recorded
--- OUTSIDE RECORDS SUMMARY | 2024-10-11 13:39 | XMS_ITS ---
Care Plan - [facility] Created on: October 11, 2024 Yovanny Steve : 1960 Sex: Male Author Organization [facility] Address [address] [place] [address] Phone Care Team Providers Care Body Painter Name Role Phone Keanu Brooks DO Primary Care Provider [phone] Liat REED, Donald Fuentes Unavailable [phone]
--- OUTSIDE RECORDS SUMMARY | 2024-10-11 13:39 | XMS_ITS ---
Author Organization [facility] Address [address] [place] [address] Phone Care Team Providers Care Vehicle Modification Technician Name Role Phone Shawna Brooks DO Primary Care Provider [phone] Liat REED, Donald Fuentes Unavailable [phone] [...] 9:03AM By Paty Eagle ; [facility] Allopurinol 300 MG Oral Tablet 05/22/2021 Provider: Diagnosis: Last Documented On 1 9:03AM By Paty Eagle ; [facility] Trazadone 50 MG Tablet 11/12/2016 Provider: Diagnosis: Last Documented On 7 8:55AM By Renetta Brown ; [facility] Past Medications on file Durolane 60 MG/3ML Intra-articular Prefilled Syringe 03/19/2024 - 04/18/2024 Provider: Donald Josue MD Diagnosis: Bilateral primar y osteoarthritis of knee Inject intra-articularly int o bilateral knees in office Last Documented On 4 11:37AM By Marjan Sandoval ; [facility] oxyCODONE-Acetaminophen 5-32 5 MG Oral Tablet 08/24/2023 - 08/31/2023 Provider: Donald Josue MD Diagnosis: i po q6 hrs prn Last Documented On 3 12:19PM By Donald Josue MD ; [facility] HYDROcodone-Acetaminophen 5- 325 MG Oral Tablet 08/16/2023 - 08/16/2023 Provider: Donald Josue MD Diagnosis: i po q 4 hrs prn pain AFTER surgery Last Documented On 3 1:28PM By Donald Josue MD ; [facility] HYDROcodone-Acetaminophen 5- 325 MG Oral Tablet [...] 9:03AM By Paty Eagle ; [facility] Lisinopril 20 MG Tablet 11/12/2016 - 06/26/2021 Provid er: Diagnosis: Last Documented On 9:03AM By Paty Eagle ; [facility] Medications Administered Includes: Administered Medications in patient's chart No Administered Medications Recorded Vital Signs Includes: Vital Signs from 10/11/2023 through 10/11/2024 Vital Name 03/09/2024 03:02P 11/14/2023 09: 12A Height (in) 66 67 Weight (lb) 201 196 Body Mass Index 32.4 30.7 Body Surface Area 2 2 Last Documented: On 03/09/2024 3:02PM ; [facility] On 11/14/2023 9:13AM ; [facility] Results Includes: Results from 10/11/2023 through 10/11/2024 No Results Recorded For Specified Dates History of Present Illness History of Present Illness not supported for this document type No History of Present Illness Recorded Social History Description Last Updated Never used drugs 02/17/2024 Last Documented On 4 8:06AM ; [facility] 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 Last Documented On 4 8:06AM ; [facility] Smoking status : Former smoker 2 Last Documented On 2 6:01PM ; [facility] Current nonsmoker 06/26/2021 Last Documented On 1 8:04AM ; [facility] Tobacco non-user 06/26/2021 Last Documented On 1 8:04AM ; [facility] Alcohol use: 2 drinks or less per day Last Documented On 1 8:04AM ; [facility] Former smoker 06/26/2021 Last Documented On 1 8:04AM ; [facility] Has high school diploma 06/26/2021 Last Documented On 1 8:04AM ; [facility] Marital history single 06/26/2021 Last Documented On 1 8:04AM ; [facility] 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 Last Documented On 7 1:23PM ; [facility] Not using alcohol 11/12/2016 Last Documented On 7 1:23PM ; [facility] Preference for right-handedness 11/12/19 17 Last Documented On 7 1:23PM ; [facility] Procedures and Surgical History Includes: Procedures from 10/11/2023 through 10/11/2024 Procedures Code Diagnosis Performing Provider Service Location Service Date Aspir/inj Major Joint/shoulder,h ip,knee (Bilateral Procedure) Bilateral primary osteoarthritis of knee Donald Alfredo Josue MD [facility] 05/18/2024 Last Documented On 4 10:43PM ; [facility] DUROLANE- hyaluronan or deriv per 1 mg (Right, Left) [id number] Bilateral primary osteoarthritis of knee Donald Alfredo Josue MD [facility] 05/18/2024 Last Documented On 4 9:09AM ; [facility] Triamcinolone Acetonide Inj Susp MDV 40MG 10 ML 10.00 unit [id number] Bilateral primary osteoarthritis of knee Donald Alfredo Josue MD [facility] 03/09/2024 Last Documented On 4 9:02AM ; [facility] Aspir/inj Major Joint/shoulder,hip,knee (Bilateral Procedure) Bilateral primary osteoarthritis of knee Donald Alfred[facility] 03/09/2024 Last Documented On 4 9:02AM ; [facility] X-Ray Knee-4 or more View; Complete (Right) 62566 Unilateral primary osteoarthritis, right knee Donald Alfredo Josue MD [facility] 03/09/2024 Last Documented On 4 9:03AM ; [facility] X-Ray Knee-4 or more View; Complete (Left) 29146 Unilateral primary osteoarthritis, left knee Donald Alfredo [facility] 03/09/2024 Last Documented On 4 9:03AM ; [facility] Surgical History Last Updated History of rotator cuff repair left with biceps tenodesis 08/31/2023 Last Documented On 3 2:25PM ; [facility] History of total left hip replacement 08/2022 ([facility]) 04/30/2022 Last Documented On 2 8:35AM ; [facility] History of total right hip replacement ([facility]) 04/30/2022 Last Documented On 2 8:35AM ; [facility] History of back surgery 11/12/2016 Last Documented On 7 1:23PM ; [facility] History of neck surgery 11/12/2016 Last Documented On 7 1:23PM ; [facility] History of surgery of the left knee - Ar throscopy 11/12/2016 Last Documented On 7 1:23PM ; [facility] Medical History Includes: Medical History in patient's chart Description Last Updated History of gout 06/26/2021 Last Documented On 1 8:04AM ; [facility] Currently wearing eyeglasses 06/26/2021 Last Documented On 1 8:04AM ; [facility] Surgical history reviewed 11/12/2016 Last Documented On 7 1:23PM ; [facility] Family history reviewed 11/12/2016 Last Documented On 7 1:23PM ; [facility] History of asthma 11/12/2016 Last Documented On 7 1:23PM ; [facility] History of hypertension 11/12/2016 Last Documented On 7 1:23PM ; [facility] Past medical history reviewed 11/12/2016 Last [...] No Known Allergies Encounters Includes: Encounters from 10/11/2023 through 10/11/2024 Encounter Provider Location Date Check-In Time Check-Out Time Diagnosis Injection Follow Up Visit Donald Josue MD [facility] 05/18/20 24 1:49PM 2:27PM Medication Donald Josue MD 03/19/20 24 03/09/2024 11:36AM 03/09/2024 11:59PM Estab Pt New Problem Donald Josue MD [facility] 03/09/20 24 2:51PM 3:17PM Standard Follow Up Visit Donald Josue MD [facility] 02/17/20 24 9:14AM 9:48AM Standard Follow Up Visit Donald Josue MD [facility] 11/14/19 24 8:40AM 9:36AM Insurance Includes: Active Insurance Policies Plan Name Member ID Group # Subscriber Relationship Effect melba Dates 1 - [employer]na Medicare [id number] Yovanny Steve Self 07/20/2023 - Unknown Clinical [...] ([facility]) - Total left hip replacement [facility]/2022 [facility] - Surgery of left knee - Arthroscopy Social History Tobacco use: Current nonsmoker. Smoking status: Former smoker. Alcohol: Not using alcohol. Drug Use: Never used drugs. Education: Has high school diploma. 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 Motor: Preference for [...] tolerated the procedure well, Durolane Lot # [id number], Durolane Expiration Date 2026-11-16, and Durolane Injection [...] discussed. Assessment Bilateral knee arthritis with varus rkix-ek-uhhf collapse, left worse than right. Plan He [...] Donald Josue MD; [facility] Chief Complaint New CC: Bilateral knee [...] Education: Has high school diploma. 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 Motor: Preference for [...] x-rays 4 or more views was performed 34774 and a complete left knee x-rays 4 or more views was performed 08983. FINDINGS: AP, lateral, PA flexion, and Merchant views of the bilateral knees are performed. Weight-bearing bilateral knee radiographs demonstrate no acute fracture dislocation. Tricompartmental degenerative changes with medial omoo-uz-hioi collapse and slight genu varum deformity. Left [...] discussed. Assessment Bilateral knee arthritis with varus jlvs-oq-fmcy collapse, left worse than right. Counseling/Education - [...] of Document cc: SHAWNA BROOKS DO (FAX: [phone]) LC/nan * Progress note Date Encounter Last Documented by 02/17/2024 Standard Follow Up Visit Last do cumented on 02/28/2024; 8:06 AM, Donald Josue MD; [facility] Chief Complaint Left shoulder pain. History [...] Education: Has high school diploma. 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 Motor: Preference for [...] Donald Josue MD; [facility] Chief Complaint Left shoulder followup History of [...] Education: Has high school diploma. 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 Motor: Preference for [...] and external rotation, abduction. Negative Neer, negative Atnia, negative speed's test. Normal motion of the [...]
--- OUTSIDE RECORDS SUMMARY | 2024-10-11 13:39 | XMS_ITS | Clinical Summary ---
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 - Last Documented On 05/22/2024 4:22PM ; [facility] Medical Equipment - Implanted Devices Includes: Current Devices No Medical Equipment Recorded Medications Includes: Medications discussed during this encounter and other current Medications Current Medications (continue as prescribed) Tylenol Extra Strength 500 MG Oral Tablet 04/30/2022 Provider: Diagnosis: Last Documented On 2 8:31AM By Sandee Jauregui ATC ; [facility] Fluticasone Propionate 50 MCG/ACT Nasal Suspension 04/2021 Provider: Diagnosis: Last Documented On 9:03AM By Paty Eagle ; [facility] ProAir HFA 108 (90 Base) MCG/ACT Inhalation Aero melvina Solution 05/26/2021 Provider: Diagnosis: Last Documented On 9:03AM By Paty Eagle ; [facility] Lisinopril-hydroCHLOROthiazide 20-25 MG Oral Tablet Provider: Diagnosis: Last Documented On 1 9:03AM By Paty Eagle ; [facility] Allopurinol 300 MG Oral Tablet 05/22/2021 Provider: Diagnosis: Last Documented On 1 9:03AM By Paty Eagle ; [facility] Trazadone 50 MG Tablet 11/12/2016 Provider: Diagnosis: Last Documented On 7 8:55AM By Renetta Brown ; [facility] Past Medications on file Durolane 60 MG/3ML Intra-articular Prefilled Syringe 03/19/2024 - 04/18/2024 Provider: Donald Josue MD Diagnosis: Bilateral primar y osteoarthritis of knee Inject intra-articularly int o bilateral knees in office Last Documented On 4 11:37AM By Marjan Sandoval ; [facility] oxyCODONE-Acetaminophen 5-32 5 MG Oral Tablet 08/24/2023 - 08/31/2023 Provider: Donald Josue MD Diagnosis: i po q6 hrs prn Last Documented On 3 12:19PM By Donald Josue MD ; [facility] HYDROcodone-Acetaminophen 5- 325 MG Oral Tablet 08/16/2023 - 08/23/2023 Provider: Donald Josue MD Diagnosis: i po q 4 hrs prn pain AFTER surgery Last Documented On 3 1:29PM By Donald Josue MD ; [facility] Eliquis 2.5 MG Oral Tablet 03/12/2022 - 04/09/2022 Pro vider: Cholo Dotson MD Diagnosis: 1 tablet po twice a day x 4 weeks AFTER surgery Last Documented On 2 10:05AM By Paty Borges ; [facility] Medications Administered Includes: Administered Medications [...] Documented On 4 2:02PM ; [facility] 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 Last Documented On 4 2:02PM ; [facility] Smoking status : Former smoker 2 Last Documented On 4 2:02PM ; [facility] Current nonsmoker 06/26/2021 Last Documented On 4 2:02PM ; [facility] Tobacco non-user 06/26/2021 Last Documented On 4 2:02PM ; [facility] Has high school diploma 06/26/2021 Last Documented On 4 2:02PM ; [facility] Marital history single 06/26/2021 Last Documented On 4 2:02PM ; [facility] 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 Last Documented On 4 2:02PM ; [facility] Not using alcohol 11/12/2016 Last Documented On 4 2:02PM ; [facility] Preference for right-handedness 11/12/19 Last Documented On 4 2:02PM ; [facility] Procedures and Surgical History Includes: Procedures from this encounter Procedures Code Diagnosis Performing Provider Service Location Service Date Aspir/inj Major Joint/shoulder,h ip,knee (Bilateral Procedure) Bilateral primary osteoarthritis of knee [facility] 05/18/2024 Last Documented On 4 10:43PM ; [facility] DUROLANE- hyaluronan or deriv per 1 mg (Right, Left) [id number] Bilateral primary osteoarthritis of knee Donald Josue MD [facility] 05/18/2024 Last Documented On 4 9:09AM ; [facility] Durolane After obtaining milton bal informed consent, the knee was sterilely prepped, infiltrated with local anesthetic, aspirated, and injected intra-articularly with 20 mg/mL supplied in a 3mL single-use syringe of Durolane. The patient tolerated the procedure well Last Documented On 4 2:03PM ; [facility] Durolane Lot # [id number] Last Documented On 4 2:03PM ; [facility] Durolane Expiration Date 2026-11-16 Last Documented On 4 2:03PM ; [facility] Durolane Injection Site Bilateral Knee Last Documented On 4 2:03PM ; [facility] Surgical History Last Updated History of rotator cuff repair left with biceps tenodesis 08/31/2023 Last Documented On 4 2:02PM ; [facility] History of total left hip replacement 08/2022 ([facility]) 04/30/2022 Last Documented On 4 2:02PM ; [facility] History of total right hip replacement ([facility]) 04/30/2022 Last Documented On 4 2:02PM ; [facility] History of back surgery 11/12/2016 Last Documented On 4 2:02PM ; [facility] History of neck surgery 11/12/2016 Last Documented On 4 2:02PM ; [facility] History of surgery of the left knee - Ar throscopy 11/12/2016 Last Documented On 4 2:02PM ; [facility] Medical History Includes: Medical History addressed during this encounter Description Last Updated History of gout 06/26/2021 Last Documented On 4 2:02PM ; [facility] Currently wearing eyeglasses 06/26/2021 Last Documented On 4 2:02PM ; [facility] Surgical history reviewed 11/12/2016 Last Documented On 4 2:02PM ; [facility] Family history reviewed 11/12/2016 Last Documented On 4 2:02PM ; [facility] History of asthma 11/12/2016 Last Documented On 4 2:02PM ; [facility] History of hypertension 11/12/2016 Last Documented On 4 2:02PM ; [facility] Past medical history reviewed 11/12/2016 Last Documented On 4 2:02PM ; [facility] Family History Includes: Family History addressed during this encounter Description Last Updated none 06/26/2021 Last Documented On 4 2:02PM ; [facility] Review of Systems Includes: Review [...] Josue MD [facility] 05/18/20 24 1:49PM 2:27PM Insurance Includes: Active Insurance Policies Plan Name Member ID Group # Subscriber Relationship Effect melba Dates 1 - [employer] [id number] Yovanny Steve Self 07/20/2023 - Unknown Clinical Notes Includes: Clinical Notes from this encounter * Progress note Date Encounter Last Documented by 05/18/2024 Injection Follow Up Visit Last d ocumented on 05/22/2024; 4:22 PM, Donald Josue MD; [facility] Chief Complaint Bilateral Knee Durolane History [...] Education: Has high school diploma. 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 Motor: Preference for [...] tolerated the procedure well, Durolane Lot # [id number], Durolane Expiration Date 2026-11-16, and Durolane Injection [...] discussed. Assessment Bilateral knee arthritis with varus bwjw-px-gysu collapse, left worse than right. Plan He [...]
--- OUTSIDE RECORDS SUMMARY | 2024-10-11 13:40 | XMS_ITS | Clinical Summary ---
Author Organization [facility] Address [address] [place] [address] Care Team Providers Care Impregnating Helper Name Role Phone Keanu Brooks DO Primary Care Provider [phone] Allergies No known active allergies Medications lisinopril-hyd [...] PM EST Imaging[facility]Diagnost [facility] [address] [address] Robyn Bone APRN 09/25/2024 2:30 PM EST [facility] [address] [address] Robyn Bone, LOTTERY SALES CLERK Moderate asthma with exacerbation, unspecified whether persistent (Primary Dx); Acute cough; Shortness of breath 09/08/2024 3:15 PM EST [facility] [address] [address] Debby Enamorado, LOTTERY SALES CLERK Exacerbation of asthma, unspecified asthma severity, unspecified [...] Office Visit [facility] - [address] [address] Damien Cárdenas, LOTTERY SALES CLERK [address] [place] [address] Health Maintenance Due Date Last [...] this topic Medical Devices Implanted Type Area Grounds Foreman Device Identifier Shelf Expiration Date Model / Serial / Lot Loop Wire Christina [id number] - [id number] Implanted:Qty : 1 on 03/30/2022 by Cholo Dotson MD at [facility] Cable Left: Hip [employer] [id number] / / Cage Harms 12 [id number] - [id number] Implanted:Qty : 1 on 02/16/2013 by Shady Camargo MD at [facility] Cages Bilateral: Spine Cervical DEPUY,ACROMED [id number] / / Description:C4-7 Graft Tissue Regen Med 4565 - [id number] Implanted:Qty : 1 on 08/19/2023 by Donald Josue MD at [facility] Grafts Left: Shoulder [employer]W ORTHO 11/13/2025 4565 / / [id number] Hip Shell Acetab 52 [id number] - [id number] Implanted:Qty : 1 on 03/30/2022 by Cholo Dotson MD at [facility] Hips Left: Hip [employer] OR[employer]O 08/21/2031 [id number] / / [id number] Hip Liner Ch[place] Sz 32 [id number] - [id number] Implanted:Qty : 1 on 03/30/2022 by Cholo Dotson MD at [facility] Hips Left: Hip [employer] ORTHO 08/20/2027 [id number] / / [id number] Hip Fem Head Taper 32 [id number] - [id number] Implanted:Qty : 1 on 03/30/2022 by Cholo Dotson MD at [facility] Hips Left: Hip [employer] OR[employer]O 09/23/2031 [id number] / / [id number] Hip Shell Acetab 52 [id number] - [id number] Implanted:Qty : 1 on 03/30/2022 by Cholo Dotson MD at [facility] Hips Right: Hip [employer] ORTHO 10/20/2031 [id number] / / [id number] Hip Liner Acetab 52 [id number] - [id number] Implanted:Qty : 1 on 03/30/2022 by Cholo Dotson MD at [facility] Hips Right: Hip [employer] OR[employer]O 02/02/2031 [id number] / / [id number] Hip Fem Head Taper 32 [id number] - [id number] Implanted:Qty : 1 on 03/30/2022 by Cholo Dotson MD at [facility] Hips Right: Hip [employer] OR[employer]O 11/28/2031 [id number] / / [id number] Hip Stem Sz2 Lat 66732975 - [id number] Implanted:Qty : 1 on 03/30/2022 by Cholo Dotson MD at [facility] OTHER - IMPLANTS - ORTHOPAEDIC Left: Hip [employer] ORTHO 10/02/2024 [id number] / / [id number] Hip Stem Sz2 Lat 85071427 - [id number] Implanted:Qty : 1 on 03/30/2022 by Cholo Dotson MD at [facility] OTHER - IMPLANTS - ORTHOPAEDIC Right: Hip [employer] ORTHO 01/12/2028 [id number] / / [id number] [place] 4.75 Peek [id number] - [id number] Implanted:Qty : 1 on 08/19/2023 by Donald Josue MD at [facility] OTHER - IMPLANTS - ORTHOPAEDIC Left: Shoulder ARTHREX ARTHROSCOPY INSTRUMENT 03/18/2028 [id number] / / [id number] [place] Bone 4403 - [id number] Implanted:Qty : 1 on 08/19/2023 by Donald Josue MD at [facility] OTHER - IMPLANTS - ORTHOPAEDIC Left: Shoulder [employer] ORTHO 03/14/2026 / / [id number] Plate [place] 3l 48 [id number] - [id number] Implanted:Qty : 1 on 02/16/2013 by Shady Camargo MD at [facility] Plates Bilateral: Spine Cervical DEPUY,ACROMED [id number] / / Description:C4-7 Staple Tendon 54912 - [id number] Implanted:Qty : 1 on 08/19/2023 by Donald Josue MD at [facility] Screws, Bolts and Washers Left: Shoulder [employer] ENDOSCOPY 01/27/2026 [id number] / / [id number] Screw 16 [id number] - [id number] Implanted:Qty : 4 on 02/16/2013 by Shady Camargo MD at [facility] Screws Bilateral: Spine Cervical DEPUY,ACROMED [id number] / / Description:C4-7 Implant Tack Loop [id number] - [id number] Implanted:Qty : 1 on 08/19/2023 by Donald Josue MD at [facility] Shoulders Left: Shoulder ARTHREX ARTHROSCOPY INSTRUMENT 12/17/2026 [id number] / / [id number] Procedures Procedure Name Priority Date/Time Associated Diagnosis Comments XR CHEST 2VW Routine 09/25/2024 3:05 PM EST Acute cough Shortness of breath IPOC SARS-COV-2 FLU A/B PCR Routine 09/25/2024 2:41 PM EST Shortness of breath IPOC SARS-COV-2 FLU A/B PCR Routine 09/08/2024 3:25 PM EST Cough, unspecified type from Last 3 Months Results * XR Chest 2Vw (09/25/2024 3:05 PM EST) [facility] RAD WORKSTATION ID [id number] CT POWERSCRIBE Anatomical Region Laterality Modality Chest [facility] Radiographic Imaging 09/25/2024 3:54 PM EST Narrative 09/25/2024 3:55 PM EST REVIEWING YOUR TEST RESULTS IN [facility] FOR DISCUSSING THOSE RESULTS WITH YOUR HEALTH CARE PROVIDER. PLEASE CONTACT YOUR PROVIDER [employer]IA [employer] TO DISCUSS ANY QUESTIONS OR CONCERNS YOU MAY HAVE REGARDING THESE TEST RESULTS. RADIOLOGY REPORT FACILITY: ??[facility] UNIT/AGE/GENDER: P.ICCD ??OP ?AGE:64 Y ?SEX:M PATIENT NAME/: ??MARGARITA MALIN D ?1960 UNIT NUMBER: ??[id number] ACCESSION NUMBER: ??[id number] XR CHEST 2VW 09/25/2024 at 1455 hours [...] - 09/25/2024 REVIEWING YOUR TEST RESULTS IN [facility] FOR[facility]CUSSING THOSE RESULTS WITH YOUR HEALTH CARE PROVIDER. PLEASE CONTACT YOUR PROVIDER VIA [employer] TO DISCUSS ANY QUESTIONS ORCONCERNS YOU MAY HAVE REGARDING THESE TEST RESULTS. RADIOLOGY REPORT FACILITY: [facility] UNIT/AGE/GENDER: P.ICCD OP AGE:64 Y SEX:M PATIENT NAME/: MARGARITA MALIN D 1960 UNIT NUMBER: [id number] ACCESSION NUMBER: [id number] XR CHEST 2VW 09/25/2024 at 1455 hours [...] 09/25/2024 1554 1554 1554 Robyn Bone APRN [facility] ORDER ALEX Final Result * [...] - GENERAL ORD ERABLES Final Result [facility] [address] [address] [place] [phone] from Last 3 Months Insurance MEDICARE Advance Directives * Full Code (Latest Code Status on File) Date Activated Date Inactivated Comments 03/30/2022 4:24 PM 04/01/2022 4:16 PM * Full Code Date Activated Date Inactivated Comments 02/16/2013 11:49 AM 02/18/2013 1:34 PM Care Teams Impregnating Helper Relationship Specialty Start Date End Date Keanu Brooks DO PCP - General Family Medicine 01/14/20
--- OUTSIDE RECORDS SUMMARY | 2024-10-11 13:40 | XMS_ITS | Clinical Summary ---
Author Organization [facility] Address [address] [place] [address] Care Team Providers Care People Greeter Name Role Phone Keanu Brooks DO Primary Care Provider [phone] Allergies No known active allergies Medications albuterol [...] Type Department Care Team Description 09/07/2024 Refill [facility] [address] [place] [address] Keanu Brooks DO Eczema, unspecified type from [...] e 06/28/2023 Family and Community Support Answer Adllin e Recorded Help with Day-to-Day Activities Not [...] Visit [facility] [address] [place] [id number] Keanu Brooks DO [address] [place] [address] Health Maintenance Due Date Last [...] Maintenance Results * SCANNED - COLONOSCOPY (02/04/2017) [facility] CHART REVIEW TABS Final Re sult from Last 3 Months or Most Recently Relevant to Health Maintenance Insurance [employer] ADV HMO Care Teams People Greeter Relationship Specialty Start Date End Date Keanu Brooks DO [address] [address] PCP - General Family Medicine 12/11/18
--- OUTSIDE RECORDS SUMMARY | 2024-10-11 13:40 | XMS_ITS | Clinical Summary ---
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 - Last Documented On 02/28/2024 8:06AM ; [facility] Instructions Includes: Instructions from this encounter Education and Decision Aids were provided during visit for: Discussed maintaining health y weight Last Documented On 4 9:25AM ; [facility] Medical Equipment - Implanted Devices Includes: Current Devices No Medical Equipment Recorded Medications Includes: Medications discussed during this encounter and other current Medications Current Medications (continue as prescribed) Tylenol Extra Strength 500 MG Oral Tablet 04/30/2022 Provider: Diagnosis: Last Documented On 2 8:31AM By Sandee Jauregui ATC ; [facility] Fluticasone Propionate 50 MCG/ACT Nasal Suspension 04/2021 Provider: Diagnosis: Last Documented On 9:03AM By Paty [facility], [facility] ProAir HFA 108 (90 Base) MCG/ACT Inhalation Aero melvina Solution 05/26/2021 Provider: Diagnosis: Last Documented On 1 9:03AM By Paty [facility], [facility] Lisinopril-hydroCHLOROthiazide 20-25 MG Oral Tablet Provider: Diagnosis: Last Documented On 1 9:03AM By Paty [facility], [facility] Allopurinol 300 MG Oral Tablet 05/22/2021 Provider: Diagnosis: Last Documented On 1 9:03AM By Paty [facility], [facility] Trazadone 50 MG Tablet 11/12/2016 Provider: Diagnosis: Last Documented On 7 8:55AM By Renetta [facility] Past Medications on file Durolane 60 MG/3ML Intra-articular Prefilled Syringe 03/19/2024 - 04/18/2024 Provider: Donald Josue MD Diagnosis: Bilateral primar y osteoarthritis of knee Inject intra-articularly int o bilateral knees in office Last Documented On 4 11:37AM By Marjan Sandoval ; [facility] oxyCODONE-Acetaminophen 5-32 5 MG Oral [...] By Donald Josue MD ; [facility] Eliquis 2.5 MG Oral Tablet 03/12/2022 - 04/09/2022 Pro vider: Cholo Dotson MD Diagnosis: 1 tablet po twice a day x 4 weeks AFTER surgery Last Documented On 2 10:05AM By Paty Borges ; [facility] Medications Administered Includes: Administered Medications from this [...] Documented On 4 8:06AM ; [facility] 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 Last Documented On 4 8:06AM ; [facility] Smoking status : Former smoker 2 Last Documented On 4 9:24AM ; [facility] Current nonsmoker 06/26/2021 Last Documented On 4 9:24AM ; [facility] Tobacco non-user 06/26/2021 Last Documented On 4 9:24AM ; [facility] Alcohol use: 2 drinks or less per day Last Documented On 4 9:24AM ; [facility] Has high school diploma 06/26/2021 Last Documented On 4 9:24AM ; [facility] Marital history single 06/26/2021 Last Documented On 4 9:24AM ; [facility] 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 Last Documented On 4 9:24AM ; [facility] Not using alcohol 11/12/2016 Last Documented On 4 9:24AM ; [facility] Preference for right-handedness 11/12/19 17 Last Documented On 4 9:24AM ; [facility] Procedures and Surgical History Includes: Procedures from this encounter Procedures Code Diagnosis Performing Provider Service L ocation Service Date use of tobacco assessment performed 1000F Last Documented On 4 9:25AM ; [facility] Surgical History Last Updated History of rotator cuff repair left with biceps tenodesis 08/31/2023 Last Documented On 4 9:24AM ; [facility] History of total left hip replacement 08/2022 (Schaper) 04/30/2022 Last Documented On 4 9:24AM ; [facility] History of total right hip replacement (Schaper) 04/30/2022 Last Documented On 4 9:24AM ; [facility] History of back surgery 11/12/2016 Last Documented On 4 9:24AM ; [facility] History of neck surgery 11/12/2016 Last Documented On 4 9:24AM ; [facility] History of surgery of the left knee - Ar throscopy 11/12/2016 Last Documented On 4 9:24AM ; [facility] Medical History Includes: Medical History addressed during this encounter Description Last Updated History of gout 06/26/2021 Last Documented On 4 9:24AM ; [facility] Currently wearing eyeglasses 06/26/2021 Last Documented On 4 9:24AM ; [facility] Surgical history reviewed 11/12/2016 Last Documented On 4 9:24AM ; [facility] Family history reviewed 11/12/2016 Last Documented On 4 9:24AM ; [facility] History of asthma 11/12/2016 Last Documented On 4 9:24AM ; [facility] History of hypertension 11/12/2016 Last Documented On 4 9:24AM ; [facility] Past medical history reviewed 11/12/2016 Last Documented On 4 9:24AM ; [facility] Family History Includes: Family History addressed during this encounter Description Last Updated none 06/26/2021 Last Documented On 4 9:24AM ; [facility] Review of Systems Includes: Review [...] Effect melba Dates 1 - [employer] [id number] Yovanny Hyde High Self 07/20/2023 - Unknown Clinical Notes Includes: Clinical Notes from this encounter * Progress note Date Encounter Last Documented by 02/17/2024 Standard Follow Up Visit Last do cumented on 02/28/2024; 8:06 AM, Donald Josue MD; [facility] Chief Complaint Left shoulder pain. [...] school diploma. 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 Motor: Preference for [...]
--- OUTSIDE RECORDS SUMMARY | 2024-10-11 13:40 | XMS_ITS | Referral Summary ---
Author Organization [facility] [place] [address] Care Team Providers Care Oil Well Services Superintendent Name Role Phone Keanu Brooks DO Primary Care Provider [phone] Encounters Date Type Department Care Team Description 09/25/2024 3:00 PM EST [facility] [address] [address] Robyn Bone APRN 09/25/2024 2:30 PM EST [facility] [address] [address] Robyn Bone APRN Moderate asthma with exacerbation, unspecified whether persistent (Primary Dx); Acute cough; Shortness of breath 09/08/2024 3:15 PM EST [facility] [address] [address] Debby Enamorado APRN Exacerbation of [...] Visit [facility] - [address] [address] Damien Cárdenas, TANG [address] [place] [address] Medical Devices Implanted Type Area Insurance Policy Issue Clerk Device Identifier Shelf Expiration Date Model / Serial / Lot Loop Vini Vasquez [id number] - [id number] Implanted:Qty : 1 on 03/30/2022 by Cholo Dotson MD at [facility] Cable Left: Hip [employer] [id number] / / Cage Harms 12 [id number] - [id number] Implanted:Qty : 1 on 02/16/2013 by Shady Camargo MD at [facility] Cages Bilateral: Spine Cervical DEPUY,ACROMED [id number] / / Description:C4-7 Graft Tissue Regen Med 4565 - [id number] Implanted:Qty : 1 on 08/19/2023 by Donald Josue MD at [facility] Grafts Left: Shoulder [employer]PHEW ORTHO 11/13/2025 4565 / / [id number] Hip Shell Acetab 52 [id number] - [id number] Implanted:Qty : 1 on 03/30/2022 by Cholo Dotson MD at [facility] Hips Left: Hip [employer]PHEW ORTHO 08/21/2031 [id number] / / [id number] Hip Liner [place] Sz 32 [id number] - [id number] Implanted:Qty : 1 on 03/30/2022 by Cholo Dotson MD at [facility] Hips Left: Hip [employer]HE[employer] ORTHO 08/20/2027 [id number] / / [id number] Hip Fem Head Taper 32 [id number] - [id number] Implanted:Qty : 1 on 03/30/2022 by Cholo Dotson MD at [facility] Hips Left: Hip [employer]HE[employer] ORTHO 09/23/2031 [id number] / / [id number] Hip Shell Acetab 52 [id number] - [id number] Implanted:Qty : 1 on 03/30/2022 by Cholo Dotson MD at [facility] Hips Right: Hip [employer]PHE[employer] ORTHO 10/20/2031 [id number] / / [id number] Hip Liner Acetab 52 [id number] - [id number] Implanted:Qty : 1 on 03/30/2022 by Cholo Dotson MD at [facility] Hips Right: Hip [employer]PHE[employer] ORTHO 02/02/2031 [id number] / / [id number] Hip Fem Head Taper 32 [id number] - [id number] Implanted:Qty : 1 on 03/30/2022 by Cholo Dotson MD at [facility] Hips Right: Hip [employer]PHEW ORTHO 11/28/2031 [id number] / / [id number] Hip Stem Sz2 Lat [id number] - [id number] Implanted:Qty : 1 on 03/30/2022 by Cholo Dotson MD at [facility] OTHER - IMPLANTS - ORTHOPAEDIC Left: Hip [employer]PHE[employer] ORTHO 10/02/2024 [id number] / / [id number] Hip Stem Sz2 Lat [id number] - [id number] Implanted:Qty : 1 on 03/30/2022 by Cholo Dotson MD at [facility] OTHER - IMPLANTS - ORTHOPAEDIC Right: Hip [employer]PHEW ORTHO 01/12/2028 [id number] / / [id number] [place] 4.75 Peek [id number] - [id number] Implanted:Qty : 1 on 08/19/2023 by Donald Josue MD at [facility] OTHER - IMPLANTS - ORTHOPAEDIC Left: Shoulder ARTHREX ARTHROSCOPY INSTRUMENT 03/18/2028 [id number] / / [id number] [place] Bone 4403 - [id number] Implanted:Qty : 1 on 08/19/2023 by Donald Josue MD at [facility] OTHER - IMPLANTS - ORTHOPAEDIC Left: Shoulder [employer] NEPHEW ORTHO 03/14/2026 / / [id number] Plate [place] 3l 48 [id number] - [id number] Implanted:Qty : 1 on 02/16/2013 by Shady Camargo MD at [facility] Plates Bilateral: Spine Cervical DEPUY,ACROMED [id number] / / Description:C4-7 Staple Tendon 29774 - [id number] Implanted:Qty : 1 on 08/19/2023 by Donald Josue MD at [facility] Screws, Bolts and Washers Left: Shoulder [employer]PHEW ENDOSCOPY 01/27/2026 [id number] / / [id number] Screw 16 [id number] - [id number] Implanted:Qty : 4 on 02/16/2013 by Shady Camargo MD at [facility] Screws Bilateral: Spine Cervical DEPUY,ACROMED [id number] / / Description:C4-7 Implant Tack Loop [id number] - [id number] Implanted:Qty : 1 on 08/19/2023 by Donald Josue MD at [facility] Shoulders Left: Shoulder ARTHREX ARTHROSCOPY INSTRUMENT 12/17/2026 [id number] / / [id number] Procedures Procedure Name Priority Date/Time Associated Diagnosis Comments XR CHEST 2VW Routine 09/25/2024 3:05 PM EST Acute cough Shortness of breath IPOC SARS-COV-2 FLU A/B PCR Routine 09/25/2024 2:41 PM EST Shortness of breath IPOC SARS-COV-2 FLU A/B PCR Routine 09/08/2024 3:25 PM EST Cough, unspecified type from Last 3 Months Results * XR Chest 2Vw (09/25/2024 3:05 PM EST) [facility] RAD WORKSTATION ID [id number] Laterality Modality Chest [facility] Radiographic Imaging 09/25/2024 3:54 PM EST Narrative 09/25/2024 3:55 PM EST RE[facility]ING YOUR TEST RESULTS IN [facility] IS NOT A SUBSTITUTE FOR DISCUSSING THOSE RESULTS WITH YOUR HEALTH CARE PROVIDER. PLEASE CONTACT YOUR PROVIDER VIA [facility] TO DISCUSS ANY QUESTIONS OR CONCERNS YOU MAY HAVE REGARDING THESE TEST RESULTS. RADIOLOGY REPORT FACILITY: ??[facility] UNIT/AGE/GENDER: P.ICCD ??OP ?AGE:64 Y ?SEX:M PATIENT NAME/: ??MARGARITA MALIN D ?1960 UNIT NUMBER: ??[id number] ACCESSION NUMBER: ??[id number] XR CHEST 2VW 09/25/2024 at 1455 hours [...] - 09/25/2024 REVIEWING YOUR TEST RESULTS IN [facility] IS NOT A SUBSTITUTE FORDISCUSSING THOSE RESULTS WITH YOUR HEALTH CARE PROVIDER. PLEASE CONTACT YOUR PROVIDER [facility] TO DISCUSS ANY QUESTIONS ORCONCERNS YOU MAY HAVE REGARDING THESE TEST RESULTS. RADIOLOGY REPORT FACILITY: [facility] UNIT/AGE/GENDER: P.ICCD OP AGE:64 Y SEX:M PATIENT NAME/: MARGARITA MALIN D 1960 UNIT NUMBER: [id number] ACCESSION NUMBER: [id number] XR CHEST 2VW 09/25/2024 at 1455 hours [...] ERABLES Final Result LC MORENO/TED [address] [facility], [address] [place], [place] [id number] from Last 3 Months Insurance MEDICARE Advance Directives * Full Code (Latest Code Status on File) Date Activated Date Inactivated Comments 03/30/2022 4:24 PM 04/01/2022 4:16 PM * Full Code Date Activated Date Inactivated Comments 02/16/2013 11:49 AM 02/18/2013 1:34 PM Care Teams Oil Well Services Superintendent Relationship Specialty Start Date End Date Keanu Brooks DO PCP - General Family Medicine 01/14/20
== END 2024-10-05 14:03 | disposition home or self-care (01) | DRG 190 ==
LOC: ANHED 08:31 → ANHIMU 08:40 → ANH3MEDSUR 10-05 13:21 → ANHIMU 10-08 13:43
PROVIDERS: Admitting Provider Hospitalist; Emergency Provider Emergency Medicine; Visit Provider Hospitalist
DX: J44.1 Chronic obstructive pulmonary disease with (acute) exacerbation (principal); J96.01 Acute respiratory failure with hypoxia; J44.0 Chronic obstructive pulmonary disease with (acute) lower respiratory infection; J20.8 Acute bronchitis due to other specified organisms; B96.89 Other specified bacterial agents as the cause of diseases classified elsewhere; R03.0 Elevated blood-pressure reading, without diagnosis of hypertension; D64.9 Anemia, unspecified
CPT/HCPCS: 36415; 36600; 71045; 71275; 80048; 80053; 80307; 82803; 82805; 83605; 83880; 84484; 85018; 85025; 85610; 85730; 87040; 87637; 93005; 94002; 94640; 94660; 96365; 96375; 99285; A9270; J1100; J1956; J2305; J2919; J3475; J7512; Q9967